=== PATIENT | male | born 1960 | race African-American/Black ===

== ENCOUNTER 2019-01-13 16:34 | Inpatient (IN) | payer OTHER ==
--- NOTE | 2019-01-13 16:57 | PDOC ---
Rapid Medical Evaluation Chief Complaint: Injury Time Seen by Provider: 01/13/19 16:52 Medical Evaluation: Allergies Allergy/AdvReac Type Severity Reaction Status Date / Time No Known Allergies Allergy Verified 01/13/19 16:49 Vital Signs Temp Pulse Resp BP Pulse Ox 97.9 F 106 H 18 119/64 94 L 01/13/19 16:49 01/13/19 16:49 01/13/19 16:49 01/13/19 16:49 01/13/19 16:49 01/13/19 16:52 I have performed a brief in-person evaluation of this patient. The patient presents with a chief complaint of:LLE pain and swelling since yesterday, caused him to fall today. Able to ambulate w/ cane. No CP/SOB or palpitations. H/o TN, DM, PAD surgery LLE intervention, s/p multiple toe amps on R foot Pertinent physical exam findings:Tachy w/ O2 sat of 94% on RA (prior smoker) + edema of LLE w/ palpable DP pulse on the L I have ordered the following:labs/doppler/ekg/CXR The patient will proceed to the ED for further evaluation. Discharge Disposition - Diagnosis Left leg pain - Referrals - Patient Instructions - Post Discharge Activity
--- NOTE | 2019-01-13 17:32 | PDOC ---
History of Present Illness - General Chief Complaint: Edema Stated Complaint: FALL, LT LEG INJURY Time Seen by Provider: 01/13/19 16:52 History Source: Patient Exam Limitations: No Limitations - History of Present Illness Initial Comments: 01/13/19 17:32 CHIEF COMPLAINT: Leg pain HISTORY OF PRESENT ILLNESS: This is a 59-year-old male with IDDM, HTN, HLD, PAD , and CAD s/p NC 2014 who presents complaining of one day of left lower extremity pain and swelling. He denies any trauma to the area. He has not noticed any redness or warmth. Patient denies any recent travel, trauma, surgery , and testosterone use, or family/personal history of hypercoagulability. He is a former smoker (quit October 2018). He denies any chest pain, shortness of breath, or cough/hemoptysis. Vital signs on arrival are notable for pulse 106 and SpO2 94%. Surgeries: Amputations of right third, fourth, fifth toes, bilat LE arterial angioplasty REVIEW OF SYSTEMS: GENERAL/CONSTITUTIONAL: No fever or chills. No weakness. No weight change. HEAD, EYES, EARS, NOSE AND THROAT: No change in vision. No ear pain or discharge. No sore throat. CARDIOVASCULAR: No chest pain or palpitations. RESPIRATORY: No cough, wheezing, or shortness of breath. GASTROINTESTINAL: No nausea, vomiting, diarrhea or constipation. GENITOURINARY: No dysuria, frequency, or change in urination. MUSCULOSKELETAL: See HPI. SKIN: No rash or easy bruising. NEUROLOGIC: No headache, vertigo, loss of consciousness, or loss of sensation. PSYCHIATRIC: No depression or anxiety. ENDOCRINE: No increased thirst. No abnormal weight change. HEMATOLOGIC/LYMPHATIC: No anemia, easy bleeding, or history of blood clots. On Plavix. ALLERGIC/IMMUNOLOGIC: No hives or skin allergy. No latex allergy. PHYSICAL EXAM: GENERAL: The patient is awake, alert, and fully oriented, in no acute distress. HEAD: Normal with no signs of trauma. ENT: Pupils equal, round and reactive to light, extraocular movements intact, sclera anicteric, conjunctiva clear. Neck supple. LUNGS: Clear to auscultation bilaterally. Normal excursion. No respiratory distress or use of accessory muscles. CV: RRR, S1/S2, no MRG. Cap refill < 2 sec. ABDOMEN: Soft, non-distended, non-tender. EXTREMITIES: Normal range of motion. 2+ non-pitting LLE edema and calf tenderness. NEUROLOGICAL: Normal speech, normal gait. CN II-XII grossly intact. PSYCH: Flat affect. SKIN: Warm, dry, normal turgor, no rashes or lesions noted. 01/13/19 17:34 Past History - Past Medical History Allergies/Adverse Reactions: Allergies Allergy/AdvReac Type Severity Reaction Status Date / Time No Known Allergies Allergy Verified 01/13/19 16:49 COPD: No Diabetes: Yes Other medical history: PAD - Immunization History Immunization Up to Date: Yes - Suicide/Smoking/Psychosocial Hx Smoking History: Never smoked *Physical Exam - Vital Signs Last Vital Signs Temp Pulse Resp BP Pulse Ox 97.9 F 106 H 18 119/64 94 L 01/13/19 16:49 01/13/19 16:49 01/13/19 16:49 01/13/19 16:49 01/13/19 16:49 Moderate Sedation - Procedure Monitoring Vital Signs: Procedure Monitoring Vital Signs Temperature 97.9 F 01/13/19 16:49 Pulse Rate 106 H 01/13/19 16:49 Respiratory Rate 18 01/13/19 16:49 Blood Pressure 119/64 01/13/19 16:49 O2 Sat by Pulse Oximetry (%) 94 L 01/13/19 16:49 Heart Score/ECG Review - ECG Intrepretation Comment:: 01/13/19 18:43 NSR 99bpm Medical Decision Making - Medical Decision Making 01/13/19 17:41 A/P: 59-year-old male with calf swelling/pain 1. EKG (tachycardia) 2. Labs including CBC, CMP, PT/INR 3. Ultrasound left lower extremity r/o DVT 4. Chest x-ray (mild hypoxia) 5. Re-assess *DC/Admit/Observation/Transfer Diagnosis at time of Disposition: Left leg pain - Referrals - Patient Instructions - Post Discharge Activity
[2019-01-13 19:04] LABS: BASO % 0.5 % (0-2.0); EOS % 0.2 % (0-4.5); HEMATOCRIT 32.5 % (35.4-49); LYMPH % 3.9 % (8-40); MCH 29.1 pg (25.7-33.7); MCHC 33.9 g/dl (32.0-35.9); MEAN CELL VOLUME 85.8 fl (80-96); MEAN PLT VOLUME 8.8 fl (7.5-11.1); MONO % 6.8 % (3.8-10.2); NEUT % 88.6 % (42.8-82.8); PLATELET COUNT 232 K/MM3 (134-434); RBC 3.79 M/mm3 (4.00-5.60); RDW 14.6 % (11.9-15.9); WHITE BLOOD COUNT 11.7 K/mm3 (4.0-10.0)
[2019-01-13 19:32] LABS: ALBUMIN 2.8 g/dl (3.4-5.0); ALK PHOS 131 U/L (45-117); ANION GAP 9 MMOL/L (8-16); BILIRUBIN,TOTAL 1.1 mg/dL (0.2-1); BLOOD UREA NITROGEN 43 mg/dL (7-18); CALCIUM 9.1 mg/dL (8.5-10.1); CHLORIDE 106 mmol/L (98-107); CO2 24 mmol/L (21-32); CREATININE 2.9 mg/dL (0.55-1.3); GLUCOSE,RANDOM 52 mg/dL (74-106); POTASSIUM 5.2 mmol/L (3.5-5.1); SGOT/AST 17 U/L (15-37); SGPT/ALT 14 U/L (13-61); SODIUM 139 mmol/L (136-145); TOT PROT 6.8 g/dl (6.4-8.2)
--- NOTE | 2019-01-13 19:45 | PDOC ---
*Physical Exam - Vital Signs Last Vital Signs Temp Pulse Resp BP Pulse Ox 97.9 F 106 H 18 119/64 94 L 01/13/19 16:49 01/13/19 16:49 01/13/19 16:49 01/13/19 16:49 01/13/19 16:49 - Physical Exam Comments: 01/13/19 20:36 I assumed care of this 59-year-old male with multiple comorbidities presenting with a 1 day history of left lower extremity swelling and pain without trauma or injury. Doppler ultrasound of lower extremity done shows negative DVT. Checks x-ray shows no acute infiltrate or pathology. Patient with mild tachycardia on presentation of 106 and low O2 sat of 94% on room air. will consider chest CT with PE protocol given patient history of NC 4 years ago and now with lower extremity swelling. General Appearance: Yes: Nourished, Appropriately Dressed. No: Apparent Distress HEENT: positive: Normal ENT Inspection Neck: positive: Supple Respiratory/Chest: positive: Normal Breath Sounds. negative: Respiratory Distress, Accessory Muscle Use Cardiovascular: positive: Regular Rhythm, Regular Rate Extremity: positive: Normal Range of Motion Integumentary: positive: Normal Color. negative: Erythema Neurologic: positive: Fully Oriented, Alert, Normal Mood/Affect ED Treatment Course - LABORATORY CBC & Chemistry Diagram: 01/13/19 18:47 01/13/19 18:47 - ADDITIONAL ORDERS Additional order review: Laboratory Results 01/13/19 01/13/19 18:47 17:30 Sodium 139 Potassium 5.2 H Chloride 106 Carbon Dioxide 24 Anion Gap 9 BUN 43 H Creatinine 2.9 H Creat Clearance w eGFR 22.23 Random Glucose 52 L Calcium 9.1 Total Bilirubin 1.1 H AST 17 ALT 14 Alkaline Phosphatase 131 H Creatine Kinase 163 Troponin I 0.08 H B-Natriuretic Peptide 4724.0 H Total Protein 6.8 Albumin 2.8 L 01/13/19 18:47 RBC 3.79 L MCV 85.8 MCHC 33.9 RDW 14.6 MPV 8.8 Neutrophils % 88.6 H Lymphocytes % 3.9 L Monocytes % 6.8 Eosinophils % 0.2 Basophils % 0.5 Medical Decision Making - Medical Decision Making 01/13/19 20:38 I assumed care of this 59-year-old male with multiple comorbidities presenting with a 1 day history of left lower extremity swelling and pain without trauma or injury. Doppler ultrasound of lower extremity done shows negative DVT. Checks x-ray shows no acute infiltrate or pathology. Patient with mild tachycardia on presentation of 106 and low O2 sat of 94% on room air. will consider chest CT with PE protocol given patient history of NC 4 years ago and now with lower extremity swelling.Patient is hemodynamically able. Repeat vitals to be done a few minutes. Will assessed after vitals 01/13/19 21:37 Repeat vitals shows improved oxygen level to 99% room air. Patient is still tachycardic at 102. Chemistry labs shows elevated troponins and BMP labs. Patient with no history of CHF to explain the elevated BMP. Patient with history of chronic kidney disease and cannot do chest CTA given elevated creatinine level. Spoke to patient's primary care doctor Brett reported no history of CHF and patient only had hypertension and chronic kidney disease. Patient will be admitted for possible CHF given lab levels. 01/13/19 22:23 Patient given lasix 40mg and ASA 162 mg PO. Called made to admitting team and spoke to medicine team who agrees to admit under Dr. Karishma New *DC/Admit/Observation/Transfer Diagnosis at time of Disposition: Left leg pain, IDDM (insulin dependent diabetes mellitus) HTN (hypertension) Qualifiers: Hypertension type: essential hypertension Qualified Code(s): I10 - Essential ( primary) hypertension CHF (congestive heart failure) Qualifiers: Heart failure type: unspecified Heart failure chronicity: acute Qualified Code( s): I50.9 - Heart failure, unspecified - Discharge Dispostion Condition at time of disposition: Stable Decision to Admit order: Yes Decision to Admit order Date/Time: 01/13/19 21:42 Admitting patient for management of CHF and low O2 sat - Referrals Referrals: Tae West [Primary Care Provider] - - Patient Instructions - Post Discharge Activity
[2019-01-13 20:19] LABS: ANISOCYTOSIS 1+; PLATELET ESTIMATE ADEQUATE
[2019-01-13] MEDS ORDERED: ASPIRIN 81 MG CHEWABLE TABLETS PO ONE (21:34)
[2019-01-13] MEDS ORDERED: FUROSEMIDE 40 MG/5 ML UNIT-DOSE CUP PO ONE (21:34)
[2019-01-13] MEDS ORDERED: FUROSEMIDE 40 MG TABLET (FP) ONE (21:46)
[2019-01-13] MEDS ORDERED: ASPIRIN 81 MG CHEWABLE TABLETS ONE (21:46)
--- NOTE | 2019-01-13 23:42 | PDOC ---
*Physical Exam - Vital Signs Last Vital Signs Temp Pulse Resp BP Pulse Ox 99.5 F 102 H 16 105/59 L 99 01/13/19 21:30 01/13/19 21:30 01/13/19 21:30 01/13/19 21:30 01/13/19 21:30 Heart Score/ECG Review #1 General ECG Interpretation: Sinus Rhythm, Normal Rate (99), Normal Intervals, No acute ischemic changes ED Treatment Course - LABORATORY CBC & Chemistry Diagram: 01/13/19 18:47 01/13/19 18:47 - ADDITIONAL ORDERS Additional order review: Laboratory Results 01/13/19 01/13/19 18:47 17:30 Sodium 139 Potassium 5.2 H Chloride 106 Carbon Dioxide 24 Anion Gap 9 BUN 43 H Creatinine 2.9 H Creat Clearance w eGFR 22.23 Random Glucose 52 L Calcium 9.1 Total Bilirubin 1.1 H AST 17 ALT 14 Alkaline Phosphatase 131 H Creatine Kinase 163 Creatine Kinase Index 1.5 CK-MB (CK-2) 2.6 Troponin I 0.08 H B-Natriuretic Peptide 4724.0 H Total Protein 6.8 Albumin 2.8 L 01/13/19 18:47 RBC 3.79 L MCV 85.8 MCHC 33.9 RDW 14.6 MPV 8.8 Neutrophils % 88.6 H Lymphocytes % 3.9 L Monocytes % 6.8 Eosinophils % 0.2 Basophils % 0.5 - Medications Given in the ED: ED Medications Discontinued Medications Generic Name Dose Route Start Last Admin Trade Name Freq PRN Reason Stop Dose Admin Aspirin 162 mg 01/13/19 21:34 01/13/19 21:55 Asa - PO 01/13/19 21:35 162 mg ONCE ONE Administration Furosemide 40 mg 01/13/19 21:34 01/13/19 21:55 Lasix Oral Solution - PO 01/13/19 21:35 40 mg ONCE ONE Administration Medical Decision Making - Medical Decision Making 01/13/19 23:37 59 yo male h/o DM, HTN, HLD, and CAD s/p DC 2014, here with leg swelling. pt poor historian, states has been swollen for some time. does feel occasionally sob with exertion . no f/c no cough no known h/o pe or dvt. pt states left leg swollen. on exam pt awake alert, lungs clear crackles at bases, heart rrr no mrg abd soft bilat ext edema. left greater than right. nuero alert oriented. pt wiht leg swelling. differential chf dvt infection, plan labs ekg trop doppler doppler negative. creatinine 2.9 , BnP elevated, and trop positive. d/w pt dr holguin, no known h/ o chf, but does have ckd. will admit pt for chf, elevated ckd, tray. seen and examined in conjunction with MUSTAPHA ritter, and MUSTAPHA Gipson. agree with assessment and plan. *DC/Admit/Observation/Transfer Diagnosis at time of Disposition: Left leg pain, IDDM (insulin dependent diabetes mellitus) HTN (hypertension) Qualifiers: Hypertension type: essential hypertension Qualified Code(s): I10 - Essential ( primary) hypertension CHF (congestive heart failure) Qualifiers: Heart failure type: unspecified Heart failure chronicity: acute Qualified Code( s): I50.9 - Heart failure, unspecified - Discharge Dispostion Condition at time of disposition: Stable - Referrals - Patient Instructions - Post Discharge Activity
--- NOTE | 2019-01-13 23:50 | HP ---
<Shalonda Brown - Last Filed: 01/14/19 18:32> CHIEF COMPLAINT:left lower leg pain PCP:Dr. West HISTORY OF PRESENT ILLNESS: Patient is a 59 year old male with past medical history of IDDM, HTN, HLD, PAD, CAD s/p PCI, CKD, presented to the ED with 1 day history of left lower extremity pain. Patient reported pain started yesterday morning, severe 10/10 sharp pain located at the back of his thigh and knee radiating down the posterior lower leg, relieved by rest and Naproxen, aggravated by walking. Pain persisted throughout the rest of the day, and this afternoon, because of the pain, patient felt his legs giving out and fell down. Denies any head trauma or loss of consciousness. Patient then went to the ED. He denies any fever, chills , headache, nausea, vomiting, chest pain, SOB, abdominal pain, diarrhea, urinary symptoms. ER course was notable for: (1)BUN/Cr 43/2.9, K 5.2, Glu 52 (2)Trop 0.08, BNP 4724 (3) Recent Travel:denies PAST MEDICAL HISTORY: IDDM HTN HLD PAD CAD CKD PAST SURGICAL HISTORY: cardiac stents ([facility]) Left 2nd, 3rd, 4th, 5th toe amputation Social History: Smoking:previous smoker, 1ppdx>40years Alcohol:occasional EtOH Drugs: denies Family History: noncontributory Allergies No Known Allergies Allergy (Verified 01/13/19 16:49) HOME MEDICATIONS: Home Medications Medication Instructions Recorded Aspirin [ASA -] 81 mg PO DAILY 01/13/19 Atorvastatin Ca [Lipitor] 20 mg PO HS 01/13/19 Clopidogrel Bisulfate [Plavix] 75 mg PO AM 01/13/19 Insulin (Novolog 70/30) [Novolog 30 units SQ HS 01/13/19 Mix 70/30 Vial] Insulin (Novolog 70/30) [Novolog 54 units SQ AM 01/13/19 Mix 70/30 Vial] Metoprolol Succinate 50 mg PO AM 01/13/19 REVIEW OF SYSTEMS CONSTITUTIONAL: Absent: fever, chills, diaphoresis, generalized weakness, malaise, loss of appetite, weight change HEENT: Absent: rhinorrhea, nasal congestion, throat pain, throat swelling, difficulty swallowing, mouth swelling, ear pain, eye pain, visual changes CARDIOVASCULAR: Absent: chest pain, syncope, palpitations, irregular heart rate, lightheadedness , peripheral edema RESPIRATORY: Absent: cough, shortness of breath, dyspnea with exertion, orthopnea, wheezing, stridor, hemoptysis GASTROINTESTINAL: Absent: abdominal pain, abdominal distension, nausea, vomiting, diarrhea, constipation, melena, hematochezia GENITOURINARY: Absent: dysuria, frequency, urgency, hesitancy, hematuria, flank pain, genital pain MUSCULOSKELETAL: left lower leg pain Absent: myalgia, arthralgia, joint swelling, back pain, neck pain SKIN: Absent: rash, itching, pallor HEMATOLOGIC/IMMUNOLOGIC: Absent: easy bleeding, easy bruising, lymphadenopathy, frequent infections ENDOCRINE: Absent: unexplained weight gain, unexplained weight loss, heat intolerance, cold intolerance NEUROLOGIC: Absent: headache, focal weakness or paresthesias, dizziness, unsteady gait, seizure, mental status changes, bladder or bowel incontinence PSYCHIATRIC: Absent: anxiety, depression, suicidal or homicidal ideation, hallucinations. PHYSICAL EXAMINATION Vital Signs - 24 hr 01/13/19 01/13/19 16:49 21:30 Temperature 97.9 F 99.5 F Pulse Rate 106 H Pulse Rate [ 102 H Right Radial] Respiratory 18 16 Rate Blood Pressure 119/64 Blood Pressure 105/59 L [Right Arm] O2 Sat by Pulse 94 L 99 Oximetry (%) GENERAL: Awake, alert, and fully oriented, in no acute distress. HEAD: Normal with no signs of trauma. EYES: PERRLA, EOMI, sclera anicteric, conjunctiva clear. EARS, NOSE, THROAT: Ears normal, oropharynx clear without exudates. Moist mucous membranes. NECK: Normal range of motion, supple without lymphadenopathy, JVD, or masses. LUNGS: Breath sounds equal, clear to auscultation bilaterally. HEART: Regular rate and rhythm, normal S1 and S2 without murmur, rub or gallop. ABDOMEN: Soft, nontender, not distended, normoactive bowel sounds. MUSCULOSKELETAL: Normal range of motion at all joints. UPPER EXTREMITIES: 2+ pulses, warm, well-perfused. No peripheral edema. LOWER EXTREMITIES: 2+ pulses, warm, well-perfused. +b/l LE nonpitting edema NEUROLOGICAL: Cranial nerves II-XII intact. Normal speech. Motor strength 5/5, sensation intact. Normal gait. PSYCHIATRIC: Cooperative. Good eye contact. Appropriate mood and affect. SKIN: Warm, dry, normal turgor, no rashes or lesions noted. Laboratory Results - last 24 hr 01/13/19 01/13/19 01/13/19 17:30 18:47 18:47 WBC 11.7 H RBC 3.79 L Hgb 11.0 L Hct 32.5 L MCV 85.8 MCH 29.1 MCHC 33.9 RDW 14.6 Plt Count 232 MPV 8.8 Absolute Neuts (auto) 10.4 H Total Counted 100 Neutrophils % 88.6 H Neutrophils % (Manual) 72.0 Band Neutrophils % 15.0 H Lymphocytes % 3.9 L Lymphocytes % (Manual) 6.0 L Monocytes % 6.8 Monocytes % (Manual) 7 Eosinophils % 0.2 Basophils % 0.5 Nucleated RBC % 0 Metamyelocytes 1 Hypochromia 1+ Platelet Estimate Adequate Platelet Comment No clotting detected Anisocytosis 1+ Sodium 139 Potassium 5.2 H Chloride 106 Carbon Dioxide 24 Anion Gap 9 BUN 43 H Creatinine 2.9 H Creat Clearance w eGFR 22.23 Random Glucose 52 L Calcium 9.1 Total Bilirubin 1.1 H AST 17 ALT 14 Alkaline Phosphatase 131 H Creatine Kinase 163 Creatine Kinase Index 1.5 CK-MB (CK-2) 2.6 Troponin I 0.08 H B-Natriuretic Peptide 4724.0 H Total Protein 6.8 Albumin 2.8 L ASSESSMENT/PLAN: Patient is a 59 year old male with past medical history of IDDM, HTN, HLD, PAD, CAD s/p PCI, CKD, presented to the ED with 1 day history of left lower extremity pain. 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 #CKD -As per ED, PCP confirmed patient has CKD, unknown baseline Cr -Will monitor bmp #Hypoglycemia, IDDM -Glu 50, orange juice and crackers given -BGM ACHS -Insulin sliding scale implemented #FEN -Not on any standing fluids -HyperK, will given Kayexalate -Routine bmp monitoring -Diabetic/Sodium controlled diet #Prophylaxis -Heparin 5000units sq tid #Disposition -full code -tele obs Visit type - Emergency Visit Emergency Visit: Yes ED Registration Date: 01/13/19 Care time: The patient presented to the Emergency Department on the above date and was hospitalized for further evaluation of their emergent condition. - New Patient This patient is new to me today: Yes Date on this admission: 01/14/19 - Critical Care Critical Care patient: No <Shaq Schwarz - Last Filed: 02/01/19 21:01> Seen and examined; agree with the above aside from what is supplemented by myself in my own documentation. Reviewed all banks parts of history and exam with resident team and verified independently.
[2019-01-13] MEDS ORDERED: SODIUM POLYSTYRENE SULFONATE 15 GM/60 ML BOTTLE PO ONE (23:51)
--- NOTE | 2019-01-14 01:07 | PN ---
Teaching Attending Note Name of Resident: Shalonda Brown ATTENDING PHYSICIAN STATEMENT I saw and evaluated the patient. I reviewed the resident's note and discussed the case with the resident. I agree with the resident's findings and plan as documented. SUBJECTIVE: Seen and examined; please see resident note for further historical information. Briefly, this is a 59 y/o male presenting for LLE pain x1.5 days; made worse with activity, better with rest. Tells me that he never had these symptoms before. This is his first time at this hospital; he has multiple prior admissions at [facility] and records are pending. ER spoke to PCP who informs them that he had some HTN, CKD as outpatient. He notes some swelling of his LLE as well; negative DVT scan in ER, known PAD. Due to the pain he felt weak and fell (no organic weakness or parasthesias in his leg) so he came to the ER. Denies syncopal sx. Found incidentally to have a elevated BNP and trop but in the setting of marked CKD. He flat out denies any CP, SOB, PND, etc. No hx CHF per pt/PCP. Tells us he had an echo several months ago and regularly follows with CV 10 sys ROS done and negative aside from HPI PMH and PSH reviewed; Family hx and Social hx reviewed Medication list pending reconciliation. OBJECTIVE: VS, labs, imaging reviewed NAD, AAO, resting in bed CN2-12 wnl, no fnd. Ambulates with shuffling gait favoring R-side with cane. 5 /5 strength. Positive straight leg raise. Some discomfort to palpation along IT band. B/L arterial-appearing healed ulcers on LE. S/P R-sided TMA. RRR s1/2 no mgr Lungs CTAB, w/ sym exp NT ND +BS Normal mood, appropriate behavior CXR final report pending EKG reviewed; NSR. No prior studies to compare Old records pending; states he had recent stress test and echo. ASSESSMENT AND PLAN: Patient presents with LLE discomfort on ambulation and is incidentally found to have elevated BNP/Trop in the setting of CKD and the absence of normal cardiac sx. 1) LLE Pain -Broad ddx; some IT band tenderness alongside positive straight leg raise. No s /s cauda equina, etc. -Checking L-spine MRI to r/o compressed disc, consult PT -PRN APAP for pain control -Consider claudication (though not bilateral so less likely) 2) Elevated BNP -Not requiring O2 and no complaints of CHF; ER spoke to PCP who apparently told them he has no history of CHF. He has elevated Cr which definitely could play a role. -Will monitor his oxygen requirements; obtain old records from [facility] as the patient indicates to us that he may have had an echo done within the past several months. -Monitor lytes, eval on tele. Got lasix in the ER; will defer further diuresis to CV 3) Elevated troponin with hx DC -Asymptomatic; trend troponin and monitor tele. Could be renal retention. -Continue ASA 81mg PO QD. -Check A1c, TSH, Lipids -Obtain old records; continue asa, plavix, BB, statin. Can involve cardiology 4) CKD -Ascertain no AMADOU by checking old records for Cr trend; monitor BMP and UOP 5) DM -Continue home insulin and add SSI when inpatient; check A1c 6) HLD -Continue statin 7) PAD -Checking FABIAN/Arterial dopplers.
[2019-01-14 05:42] LABS: RDW 14.6 % (11.9-15.9); WHITE BLOOD COUNT 11.1 K/mm3 (4.0-10.0)
[2019-01-14 05:53] LABS: BASO % 0.2 % (0-2.0); EOS % 0.6 % (0-4.5); HEMATOCRIT 30.2 % (35.4-49); HEMOGLOBIN 10.1 GM/dL (11.7-16.9); LYMPH % 8.8 % (8-40); MCH 28.4 pg (25.7-33.7); MCHC 33.5 g/dl (32.0-35.9); MEAN CELL VOLUME 84.7 fl (80-96); MEAN PLT VOLUME 8.6 fl (7.5-11.1); MONO % 4.8 % (3.8-10.2); NEUT % 85.6 % (42.8-82.8); PLATELET COUNT 215 K/MM3 (134-434); RBC 3.57 M/mm3 (4.00-5.60)
[2019-01-14 06:09] LABS: ALBUMIN 2.2 g/dl (3.4-5.0); ALK PHOS 115 U/L (45-117); ANION GAP 9 MMOL/L (8-16); BLOOD UREA NITROGEN 48 mg/dL (7-18); CHLORIDE 106 mmol/L (98-107); CO2 23 mmol/L (21-32); CREATININE 3.1 mg/dL (0.55-1.3); GLUCOSE,RANDOM 101 mg/dL (74-106); PHOSPHOROUS 4.4 mg/dL (2.5-4.9); POTASSIUM 5.1 mmol/L (3.5-5.1); SGOT/AST 16 U/L (15-37); SGPT/ALT 14 U/L (13-61); SODIUM 137 mmol/L (136-145); TOT PROT 5.8 g/dl (6.4-8.2)
[2019-01-14] MEDS ORDERED: HEPARIN NA (PORCINE) 5,000 UNITS/ML 1ML VIAL ONE ×2 (06:23→15:23)
[2019-01-14] MEDS: INSULIN SLIDING SCALE (NOVOLOG) 1 VIAL SQ SCH ×4 (06:30→23:28)
[2019-01-14] MEDS: HEPARIN NA (PORCINE) 5,000 UNITS/ML 1ML VIAL SQ SCH ×3 (06:35→23:28)
[2019-01-14] MEDS ORDERED: CLOPIDOGREL BISULFATE 75 MG TABLET (FP) ONE (06:42)
[2019-01-14] MEDS: CLOPIDOGREL BISULFATE 75 MG TABLET (FP) PO SCH (06:50)
[2019-01-14 07:17] LABS: PLATELET ESTIMATE ADEQUATE
[2019-01-14] MEDS ORDERED: SODIUM POLYSTYRENE SULFONATE 15 GM/60 ML BOTTLE PO ONE (09:00)
[2019-01-14] MEDS ORDERED: ASPIRIN 81 MG CHEWABLE TABLETS PO SCH (10:00)
[2019-01-14 10:04] LABS: CHOLESTEROL 133 mg/dL (50-200); HDL CHOLESTEROL 30 mg/dL (40-60); TRIGLYCERIDES 101 mg/dL (0-150)
--- NOTE | 2019-01-14 11:58 | EKG ---
Test Reason : Blood Pressure : / mmHG Vent. Rate : 099 BPM Atrial Rate : 099 BPM P-R Int : 160 ms QRS Dur : 088 ms QT Int : 318 ms P-R-T Axes : 076 001 052 degrees QTc Int : 408 ms NORMAL SINUS RHYTHM NORMAL ECG NO PREVIOUS ECGS AVAILABLE Confirmed by SHA ARCHER MD ([id number]) on 01/14/2019 11:58:28 AM Referred By: Confirmed By:SHA ARCHER MD
[2019-01-14] MEDS ORDERED: SODIUM CHLORIDE 250 ML IV STA (14:37)
--- NOTE | 2019-01-14 14:43 | PN ---
Physical Exam: SUBJECTIVE: Patient seen and examined pt reports mild in his left calf which started yesterday when he tried to stand. Janie n was 10/10 in intensity and decreased after taking a medicine. in hospital dupplx scan is negative. MRI spine was also done which showed chronic degenrative changes and stenosis for which he can follow outpatient with neurology as he has no active pain in his back. Pt creatinine in jul 2018 was 1.43 and now it has jumped to 3.1. Clinically looks behind fluid and also got lasix in er last night. His bnp can be elevated because of ckd. PT has h/o htn/hld/ckd OBJECTIVE: Vital Signs Period Temp Pulse Resp BP Sys/Cano Pulse Ox Last 24 Hr 97.9 F-99.5 F 102-110 16-18 101-119/59-64 94-99 GENERAL: The patient is awake, alert, and fully oriented, in no acute distress. HEAD: Normal with no signs of trauma. EYES: PERRL, extraocular movements intact, sclera anicteric, conjunctiva clear. ENT: dry mucous membranes. NECK: Trachea midline, full range of motion, supple. LUNGS: Breath sounds equal, clear to auscultation bilaterally, no wheezes, no crackles, no accessory muscle use. HEART: Regular rate and rhythm, S1, S2 ABDOMEN: Soft, nontender, nondistended, normoactive bowel sounds, no guarding, no rebound, EXTREMITIES: amputation of toes of left feet. No peripharal pulses, chronic edema pitting b/l PSYCH: Normal mood, SKIN: Warm, dry, Laboratory Results - last 24 hr 01/13/19 01/13/19 01/13/19 17:30 18:47 18:47 WBC 11.7 H RBC 3.79 L Hgb 11.0 L Hct 32.5 L MCV 85.8 MCH 29.1 MCHC 33.9 RDW 14.6 Plt Count 232 MPV 8.8 Absolute Neuts (auto) 10.4 H Total Counted 100 Neutrophils % 88.6 H Neutrophils % (Manual) 72.0 Band Neutrophils % 15.0 H Lymphocytes % 3.9 L Lymphocytes % (Manual) 6.0 L Monocytes % 6.8 Monocytes % (Manual) 7 Eosinophils % 0.2 Basophils % 0.5 Nucleated RBC % 0 Metamyelocytes 1 Hypochromia 1+ Platelet Estimate Adequate Platelet Comment No clotting detected Anisocytosis 1+ Sodium 139 Potassium 5.2 H Chloride 106 Carbon Dioxide 24 Anion Gap 9 BUN 43 H Creatinine 2.9 H Creat Clearance w eGFR 22.23 POC Glucometer Random Glucose 52 L Hemoglobin A1c % Calcium 9.1 Phosphorus Magnesium Total Bilirubin 1.1 H AST 17 ALT 14 Alkaline Phosphatase 131 H Creatine Kinase 163 Creatine Kinase Index 1.5 CK-MB (CK-2) 2.6 Troponin I 0.08 H B-Natriuretic Peptide 4724.0 H Total Protein 6.8 Albumin 2.8 L Triglycerides Cholesterol Total LDL Cholesterol HDL Cholesterol TSH 01/13/19 01/14/19 01/14/19 23:48 00:10 01:37 WBC RBC Hgb Hct MCV MCH MCHC RDW Plt Count MPV Absolute Neuts (auto) Total Counted Neutrophils % Neutrophils % (Manual) Band Neutrophils % Lymphocytes % Lymphocytes % (Manual) Monocytes % Monocytes % (Manual) Eosinophils % Basophils % Nucleated RBC % Metamyelocytes Hypochromia Platelet Estimate Platelet Comment Anisocytosis Sodium Potassium Chloride Carbon Dioxide Anion Gap BUN Creatinine Creat Clearance w eGFR POC Glucometer 50 Random Glucose Hemoglobin A1c % Calcium Phosphorus Magnesium Total Bilirubin AST ALT Alkaline Phosphatase Creatine Kinase Cancelled Creatine Kinase Index CK-MB (CK-2) Troponin I Cancelled 0.06 H B-Natriuretic Peptide Total Protein Albumin Triglycerides Cholesterol Total LDL Cholesterol HDL Cholesterol TSH 01/14/19 01/14/19 01/14/19 05:30 05:30 05:30 WBC 11.1 H RBC 3.57 L Hgb 10.1 L Hct 30.2 L MCV 84.7 MCH 28.4 MCHC 33.5 RDW 14.6 Plt Count 215 MPV 8.6 Absolute Neuts (auto) 9.5 H Total Counted 100 Neutrophils % 85.6 H Neutrophils % (Manual) 72.0 Band Neutrophils % 13.0 H Lymphocytes % 8.8 D Lymphocytes % (Manual) 10.0 D Monocytes % 4.8 Monocytes % (Manual) 4 Eosinophils % 0.6 D Basophils % 0.2 Nucleated RBC % 0 Metamyelocytes 1 Hypochromia 1+ Platelet Estimate Adequate Platelet Comment No clotting detected Anisocytosis Sodium 137 Potassium 5.1 Chloride 106 Carbon Dioxide 23 Anion Gap 9 BUN 48 H Creatinine 3.1 H Creat Clearance w eGFR 20.59 POC Glucometer Random Glucose 101 Hemoglobin A1c % 8.0 H Calcium 9.0 Phosphorus 4.4 Magnesium 2.0 Total Bilirubin 1.0 AST 16 ALT 14 Alkaline Phosphatase 115 Creatine Kinase Creatine Kinase Index CK-MB (CK-2) Troponin I B-Natriuretic Peptide Total Protein 5.8 L Albumin 2.2 L Triglycerides 101 Cholesterol 133 Total LDL Cholesterol 59 HDL Cholesterol 30 L TSH 0.87 01/14/19 06:33 WBC RBC Hgb Hct MCV MCH MCHC RDW Plt Count MPV Absolute Neuts (auto) Total Counted Neutrophils % Neutrophils % (Manual) Band Neutrophils % Lymphocytes % Lymphocytes % (Manual) Monocytes % Monocytes % (Manual) Eosinophils % Basophils % Nucleated RBC % Metamyelocytes Hypochromia Platelet Estimate Platelet Comment Anisocytosis Sodium Potassium Chloride Carbon Dioxide Anion Gap BUN Creatinine Creat Clearance w eGFR POC Glucometer 110 Random Glucose Hemoglobin A1c % Calcium Phosphorus Magnesium Total Bilirubin AST ALT Alkaline Phosphatase Creatine Kinase Creatine Kinase Index CK-MB (CK-2) Troponin I B-Natriuretic Peptide Total Protein Albumin Triglycerides Cholesterol Total LDL Cholesterol HDL Cholesterol TSH Active Medications Generic Name Dose Route Start Last Admin Trade Name Freq PRN Reason Stop Dose Admin Acetaminophen 650 mg 01/14/19 04:03 Tylenol - PO Q6H PRN PAIN OR FEVER Aspirin 81 mg 01/14/19 10:00 01/14/19 10:30 Asa - PO 81 mg DAILY LISA Administration Atorvastatin Calcium 20 mg 01/14/19 22:00 Lipitor - PO HS LISA Clopidogrel Bisulfate 75 mg 01/14/19 07:00 01/14/19 06:50 Plavix - PO 75 mg AM LISA Administration Heparin Sodium (Porcine) 5,000 unit 01/14/19 06:00 01/14/19 06:35 Heparin - SQ 5,000 unit TID LISA Administration Sodium Chloride 250 mls @ 250 mls/hr 01/14/19 14:37 Normal Saline - IV 01/14/19 15:36 ASDIR STA Insulin Aspart 1 vial 01/14/19 07:00 01/14/19 06:30 Novolog Vial Sliding Scale - SQ Not Given ACHS [facility] Protocol Metoprolol Succinate 50 mg 01/14/19 07:00 01/14/19 07:15 Toprol Xl - PO Not Given AM [facility] ASSESSMENT/PLAN: Patient is a 59 year old male with past medical history of IDDM, HTN, HLD, PAD, CAD s/p PCI, CKD, presented to the ED with 1 day history of left lower extremity pain. #LLE pain; likely from muscle cramp duplex scan negative mri chronic degenrative change. denies pain in back and leg pain is also not radiating. PT evaluation: adv to walk with rolling walker pain got better with pain med #Elevated troponin -Trop 0.08, may be 2/2 CKD -EKG NSR, no ST-T wave changes -Will trend trop 0.08-->0.06 - #Elevated BNP -BNP 4724, likely 2/2 CKD -No SOB, lungs CTA, No evidence of congestion on CXR, leg swelling possibly chronic -Received Lasix 40mg in the ED -Will continue to monitor for now #CKD base line cr 1.43 in er 3.1 got lasix yesterday. we will give him challenge of 250ml and get echo. repeat cr in am #Hypoglycemia, IDDM -Glu 50, orange juice and crackers given -BGM ACHS -Insulin sliding scale implemented #FEN -Not on any standing fluids -HyperK, will given Kayexalate -Routine bmp monitoring -Diabetic/Sodium controlled diet #Prophylaxis -Heparin 5000units sq tid #Disposition -full code -med surg Visit type - Emergency Visit Emergency Visit: Yes ED Registration Date: 01/13/19 Care time: The patient presented to the Emergency Department on the above date and was hospitalized for further evaluation of their emergent condition. - New Patient This patient is new to me today: Yes Date on this admission: 01/14/19 - Critical Care Critical Care patient: No
--- NOTE | 2019-01-14 15:16 | PN ---
Teaching Attending Note Name of Resident: Jean-Paul Steve ATTENDING PHYSICIAN STATEMENT I saw and evaluated the patient. I reviewed the resident's note and discussed the case with the resident. I agree with the resident's findings and plan as documented. SUBJECTIVE: Mr Mendez complains of L calf pain that is reproducible. No cp, sob , n/v. OBJECTIVE: Last Vital Signs Temp Pulse Resp BP Pulse Ox 37.1 C 110 H 16 101/64 98 01/14/19 07:02 01/14/19 07:02 01/14/19 07:02 01/14/19 07:02 01/14/19 07:02 Gen: nad Pulm: ctab w/o w/r/r CV: rrr w/o m/r/g Abd: +bs, s/nt/nd Ext: no c/c/e, reproducible pain in L calf region CBC, BMP 01/14/19 05:30 01/14/19 05:30 ASSESSMENT AND PLAN: -patient with worsening renal function, last bmp checked in 08/11 showed creatinine at 1.43 -creatinine now 3.1, also received lasix last night -suspect patient needs fluids, not diuresis -check FENa labs and renal ultrasound -nephrology consult -hydration with IVF -hold on nephrotoxic agents -troponin and bnp noted, considering renal function this level is expected -check ECHO -MRI read noted -while MRI is significant, it does not appear to be the cause of patients pain -pain control and PT -continue home regimen -may need SNF if patient is agreeable Problem List - Problems (1) Left leg pain Code(s): M79.605 - PAIN IN LEFT LEG (2) AMADOU (acute kidney injury) Code(s): N17.9 - ACUTE KIDNEY FAILURE, UNSPECIFIED (3) CKD (chronic kidney disease) Code(s): N18.9 - CHRONIC KIDNEY DISEASE, UNSPECIFIED Qualifiers: Chronic kidney disease stage: stage 2 (mild) Qualified Code(s): N18.2 - Chronic kidney disease, stage 2 (mild) (4) HTN (hypertension) Code(s): I10 - ESSENTIAL (PRIMARY) HYPERTENSION Qualifiers: Hypertension type: essential hypertension Qualified Code(s): I10 - Essential (primary) hypertension (5) IDDM (insulin dependent diabetes mellitus) Code(s): E11.9 - TYPE 2 DIABETES MELLITUS WITHOUT COMPLICATIONS; 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
--- NOTE | 2019-01-14 16:06 | CONSULT ---
Consult Consult Specialty:: Nephrology Reason for Consultation:: AMADOU - History of Present Illness Chief Complaint: left leg pain History of Present Illness: Pt is a 59 year old male with pmhx of CKD (manager story baseline about 1.4-1.5), DM, HTN , HLD, PAD, and CAD who presented with left leg pain. He was found to be in acute renal failure and I was called to evaluate him. He follows with Dr Jenkins in [facility]. He denies dysuria or hematuria. He denies nsaid use. He denies shortness of breath. He does complain of lower ext edema. He denies chest pain. - History Source History Provided By: Patient, Medical Record - Past Medical History Cardio/Vascular: Yes: CAD, HTN, Hyperlipdemia Renal/: Yes: Renal Inusuff Endocrine: Yes: Diabetes Mellitus - Smoking History Smoking history: Never smoked Home Medications - Allergies Allergies/Adverse Reactions: Allergies Allergy/AdvReac Type Severity Reaction Status Date / Time No Known Allergies Allergy Verified 01/13/19 16:49 - Home Medications Home Medications: Ambulatory Orders Aspirin [ASA -] 81 mg PO DAILY 01/13/19 Atorvastatin Ca [Lipitor] 20 mg PO HS 01/13/19 Clopidogrel Bisulfate [Plavix] 75 mg PO AM 01/13/19 Insulin (Novolog 70/30) [Novolog Mix 70/30 Vial] 30 units SQ HS 01/13/19 Insulin (Novolog 70/30) [Novolog Mix 70/30 Vial] 54 units SQ AM 01/13/19 Metoprolol Succinate 50 mg PO AM 01/13/19 Family Disease History - Family Disease History Family History: Denies Review of Systems - Review of Systems Constitutional: reports: Malaise Eyes: reports: No Symptoms HENT: reports: No Symptoms Neck: reports: No Symptoms Cardiovascular: reports: Edema. denies: Chest Pain, Shortness of Breath Respiratory: reports: No Symptoms. denies: Cough, SOB, SOB on Exertion Gastrointestinal: reports: No Symptoms Genitourinary: reports: No Symptoms Musculoskeletal: reports: Other (left leg pain) Endocrine: reports: No Symptoms Hematology/Lymphatic: reports: No Symptoms Psychiatric: reports: No Symptoms Physical Exam Vital Signs: Vital Signs Temperature 99.8 F H 01/14/19 15:00 Pulse Rate 110 H 01/14/19 15:00 Respiratory Rate 16 01/14/19 15:00 Blood Pressure 129/68 01/14/19 15:00 O2 Sat by Pulse Oximetry (%) 97 01/14/19 15:00 Constitutional: Yes: Calm Eyes: Yes: Conjunctiva Clear HENT: Yes: Atraumatic Neck: Yes: Supple Cardiovascular: Yes: S1, S2 Respiratory: Yes: CTA Bilaterally Gastrointestinal: Yes: Soft Renal/: Yes: WNL Musculoskeletal: Yes: WNL Edema: Yes Edema: LLE: 1+, RLE: 1+ Neurological: Yes: Oriented Psychiatric: Yes: Oriented Labs: CBC, BMP 01/14/19 05:30 01/14/19 05:30 Laboratory Tests 01/13/19 01/14/19 01/14/19 18:47 05:30 05:30 WBC 11.7 H 11.1 H Sodium 137 Potassium 5.1 Chloride 106 Carbon Dioxide 23 Anion Gap 9 BUN 48 H Creatinine 3.1 H Hemoglobin A1c % 01/14/19 05:30 WBC Sodium Potassium Chloride Carbon Dioxide Anion Gap BUN Creatinine Hemoglobin A1c % 8.0 H Imaging - Results Chest X-ray: Report Reviewed Ultrasound: Report Reviewed Problem List - Problems (1) AMADOU (acute kidney injury) Code(s): N17.9 - ACUTE KIDNEY FAILURE, UNSPECIFIED (2) CHF (congestive heart failure) Code(s): I50.9 - HEART FAILURE, UNSPECIFIED Qualifiers: Heart failure type: unspecified Heart failure chronicity: acute Qualified Code(s): I50.9 - Heart failure, unspecified (3) CKD (chronic kidney disease) Code(s): N18.9 - CHRONIC KIDNEY DISEASE, UNSPECIFIED Qualifiers: Chronic kidney disease stage: stage 2 (mild) Qualified Code(s): N18.2 - Chronic kidney disease, stage 2 (mild) (4) HTN (hypertension) Code(s): I10 - ESSENTIAL (PRIMARY) HYPERTENSION Qualifiers: Hypertension type: essential hypertension Qualified Code(s): I10 - Essential (primary) hypertension (5) IDDM (insulin dependent diabetes mellitus) Code(s): E11.9 - TYPE 2 DIABETES MELLITUS WITHOUT COMPLICATIONS; 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 (6) Left leg pain Code(s): M79.605 - PAIN IN LEFT LEG Assessment/Plan Current Medications Generic Name Dose Route Start Last Admin Trade Name Freq PRN Reason Stop Dose Admin Acetaminophen 650 mg 01/14/19 04:03 Tylenol - PO Q6H PRN PAIN OR FEVER Aspirin 81 mg 01/14/19 10:00 01/14/19 10:30 Asa - PO 81 mg DAILY LISA Administration Atorvastatin Calcium 20 mg 01/14/19 22:00 Lipitor - PO HS LISA Clopidogrel Bisulfate 75 mg 01/14/19 07:00 01/14/19 06:50 Plavix - PO 75 mg AM LISA Administration Heparin Sodium (Porcine) 5,000 unit 01/14/19 06:00 01/14/19 15:37 Heparin - SQ 5,000 unit TID [facility] Administration Insulin Aspart 1 vial 01/14/19 07:00 01/14/19 15:36 Novolog Vial Sliding Scale - SQ Not Given ACHS [facility] Protocol Metoprolol Succinate 50 mg 01/14/19 07:00 01/14/19 07:15 Toprol Xl - PO Not Given AM [facility] Impression 1. AMADOU 2. lower ext edema 3. leg pain 4. HTN 5. DM 6. CKD Plan - check renal ultrasound - send ua - check urine lytes and manager story to calc fena - pt did get a dose of lasix - check echo - repeat labs in am - renal diet for now - check phos level - check prt to manager story ratio
[2019-01-14] MEDS ORDERED: PNEUMOC 13-VAL CONJ-DIP CRM/PF 0.5 ML DISP.SYRIN IM ONE (17:31)
[2019-01-14] MEDS ORDERED: INSULIN (NOVOLOG) ASPART 100 UNITS/ML 10ML VIAL ONE (17:36)
[2019-01-14] MEDS ORDERED: PNEUMOCOCCAL 23 VACCINE 0.5 ML VIAL IM ONE (17:45)
[2019-01-14] MEDS ORDERED: ATORVASTATIN CA 20 MG TABLET (FP) PO SCH (22:00)
[2019-01-15] MEDS: ACETAMINOPHEN 325 MG TABLET (FP) PO PRN ×3 (00:51→21:08)
[2019-01-15] MEDS: HEPARIN NA (PORCINE) 5,000 UNITS/ML 1ML VIAL SQ SCH ×3 (06:13→21:07)
[2019-01-15] MEDS: INSULIN SLIDING SCALE (NOVOLOG) 1 VIAL SQ SCH ×4 (06:15→21:07)
[2019-01-15] MEDS: CLOPIDOGREL BISULFATE 75 MG TABLET (FP) PO SCH (06:22)
[2019-01-15 08:36] LABS: ALBUMIN 1.6 g/dl (3.4-5.0); ALK PHOS 99 U/L (45-117); ANION GAP 13 MMOL/L (8-16); BILIRUBIN,TOTAL 0.9 mg/dL (0.2-1); BLOOD UREA NITROGEN 61 mg/dL (7-18); CHLORIDE 104 mmol/L (98-107); CO2 19 mmol/L (21-32); CREATININE 3.2 mg/dL (0.55-1.3); GLUCOSE,RANDOM 190 mg/dL (74-106); POTASSIUM 4.3 mmol/L (3.5-5.1); SGOT/AST 19 U/L (15-37); SGPT/ALT 11 U/L (13-61); SODIUM 135 mmol/L (136-145); TOT PROT 4.9 g/dl (6.4-8.2)
--- NOTE | 2019-01-15 10:11 | ECHO ---
Name: ASAEL GUPTA Exam:Adult Echocardiogram Study Date: 01/15/2019 07:30 AM Age: 59 yrs Reason For Study: ELEVATED VBNP Height: 73 in Weight: 270 lb BSA: 2.4 m2 MMode/2D Measurements & Calculations IVSd: 1.2 cm Ao root diam: 3.4 cm LVIDd: 4.1 cm LA dimension: 2.8 cm LVIDs: 3.2 cm LVPWd: 0.87 cm EDV(Teich): 75.2 ml LAV (MOD-bp): 50.8 ml ESV(Teich): 40.8 ml Doppler Measurements & Calculations MV E max moreno: 69.2 cm/sec MV A max moreno: 105.9 cm/sec MV dec slope: 1943 cm/sec2 MV E/A: 0.65 MR max moreno: 375.9 cm/sec TR max moreno: 270.1 cm/sec MR max P.5 mmHg TR max P.0 mmHg Med Peak E' Moreno: 5.9 cm/sec PI Vmax: 171.0 cm/sec Med E/e': 11.8 Lat Peak E' Moreno: 9.0 cm/sec Lat E/e': 7.7 Left Ventricle Left ventricular systolic function is normal. Ejection Fraction = 55-60%. The transmitral spectral Do ppler flow pattern is suggestive of impaired LV relaxation. Right Ventricle The right ventricle is normal in size and function. Atria The left atrium is mildly dilated. Mitral Valve The mitral valve is grossly normal. There is no mitral valve stenosis. There is mild mitral regurgita tion. Tricuspid Valve The tricuspid valve is normal in structure and function. There is mild tricuspid regurgitation. Right ventricular systolic pressure is elevated at 40-50mmHg. Aortic Valve There is a focal echodensity on the aortic valve seen in multiple views which may represent an area o f focal/nodular calcification vs fibroelastoma; cannot completely exclude vegetation. No hemodynamicall y significant valvular aortic stenosis. No aortic regurgitation is present. Pulmonic Valve The pulmonic valve is not well seen, but is grossly normal. There is no pulmonic valvular stenosis. M ild pulmonic valvular regurgitation. Great Vessels The aortic root is normal size. Pericardium/Pleura There is no pericardial effusion. Interpretation Summary Clinical correlation is recommended. Ejection Fraction = 55-60%. The transmitral spectral Doppler flow pattern is suggestive of impaired LV relaxation. The right ventricle is normal in size and function. The left atrium is mildly dilated. There is mild mitral regurgitation. There is mild tricuspid regurgitation. Right ventricular systolic pressure is elevated at 40-50mmHg. There is a focal echodensity on the aortic valve seen in multiple views which may represent an area o f focal/nodular calcification vs fibroelastoma; cannot completely exclude vegetation. There is no pericardial effusion. MD Rm *[place] 01/15/2019 10:10 AM
[2019-01-15] MEDS: ASPIRIN 81 MG CHEWABLE TABLETS PO SCH (10:32)
--- NOTE | 2019-01-15 14:04 | PN ---
Progress Note, Physician History of Present Illness: Pt seen and examined at bedside. He is awake and alert. He denies shortness of breath. - Current Medication List Current Medications: Active Medications Acetaminophen (Tylenol -) 650 mg PO Q6H PRN PRN Reason: PAIN OR FEVER Aspirin (Asa -) 81 mg PO DAILY [facility] Last Admin: 01/15/19 10:32 Dose: 81 mg Atorvastatin Calcium (Lipitor -) 20 mg PO HS LISA Clopidogrel Bisulfate (Plavix -) 75 mg PO AM [facility] Heparin Sodium (Porcine) (Heparin -) 5,000 unit SQ TID [facility] Insulin Aspart (Novolog Vial Sliding Scale -) 1 vial SQ ACHS [facility]; Protocol Last Admin: 01/15/19 11:45 Dose: 4 units Metoprolol Succinate (Toprol Xl -) 50 mg PO AM [facility] - Objective Vital Signs: Vital Signs Temperature 98.5 F 01/15/19 09:00 Pulse Rate 107 H 01/15/19 09:00 Respiratory Rate 18 01/15/19 09:00 Blood Pressure 119/62 01/15/19 09:00 O2 Sat by Pulse Oximetry (%) 96 01/15/19 07:00 Constitutional: Yes: Calm Eyes: Yes: Conjunctiva Clear HENT: Yes: Atraumatic Neck: Yes: Supple Cardiovascular: Yes: S1, S2 Respiratory: Yes: CTA Bilaterally Gastrointestinal: Yes: Soft Genitourinary: Yes: WNL Edema: Yes Edema: LLE: 2+, RLE: Trace Neurological: Yes: Oriented Psychiatric: Yes: Oriented Labs: CBC, BMP 01/14/19 05:30 01/15/19 06:00 Problem List - Problems (1) AMADOU (acute kidney injury) Code(s): N17.9 - ACUTE KIDNEY FAILURE, UNSPECIFIED (2) CHF (congestive heart failure) Code(s): I50.9 - HEART FAILURE, UNSPECIFIED Qualifiers: Heart failure type: unspecified Heart failure chronicity: acute Qualified Code(s): I50.9 - Heart failure, unspecified (3) CKD (chronic kidney disease) Code(s): N18.9 - CHRONIC KIDNEY DISEASE, UNSPECIFIED Qualifiers: Chronic kidney disease stage: stage 2 (mild) Qualified Code(s): N18.2 - Chronic kidney disease, stage 2 (mild) (4) HTN (hypertension) Code(s): I10 - ESSENTIAL (PRIMARY) HYPERTENSION Qualifiers: Hypertension type: essential hypertension Qualified Code(s): I10 - Essential (primary) hypertension (5) IDDM (insulin dependent diabetes mellitus) Code(s): E11.9 - TYPE 2 DIABETES MELLITUS WITHOUT COMPLICATIONS; 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 (6) Left leg pain Code(s): M79.605 - PAIN IN LEFT LEG Assessment/Plan Current Medications Generic Name Dose Route Start Last Admin Trade Name Freq PRN Reason Stop Dose Admin Acetaminophen 650 mg 01/15/19 07:10 Tylenol - PO Q6H PRN PAIN OR FEVER Aspirin 81 mg 01/15/19 10:00 01/15/19 10:32 Asa - PO 81 mg DAILY LISA Administration Atorvastatin Calcium 20 mg 01/15/19 22:00 Lipitor - PO HS LISA Clopidogrel Bisulfate 75 mg 01/16/19 07:00 Plavix - PO AM [facility] Heparin Sodium (Porcine) 5,000 unit 01/15/19 14:00 Heparin - SQ TID LISA Insulin Aspart 1 vial 01/15/19 11:00 01/15/19 11:45 Novolog Vial Sliding Scale - SQ 4 units ACHS [facility] Administration Protocol Metoprolol Succinate 50 mg 01/16/19 07:00 Toprol Xl - PO AM [facility] Impression 1. AMADOU 2. lower ext edema 3. leg pain 4. HTN 5. DM 6. 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
--- NOTE | 2019-01-15 14:40 | PN ---
Physical Exam: SUBJECTIVE: Patient seen and examined still complains of pain in left leg with increase in swelling. Initial duplex scan done was negative. We will get repeat duplex scan and arterial doppler as pt has h/o PVD Pt also reports that he use to take naproxen twice a day from a long time. OBJECTIVE: Vital Signs Period Temp Pulse Resp BP Sys/Cano Pulse Ox Last 24 Hr 98 F-99.8 F 78-111 16-20 111-139/62-78 96-97 GENERAL: The patient is awake, alert, and fully oriented, in no acute distress. HEAD: Normal with no signs of trauma. EYES: PERRL, extraocular movements intact, sclera anicteric, conjunctiva clear. ENT: dry mucous membranes. NECK: Trachea midline, full range of motion, supple. LUNGS: Breath sounds equal, clear to auscultation bilaterally, no wheezes, no crackles, no accessory muscle use. HEART: Regular rate and rhythm, S1, S2 ABDOMEN: Soft, nontender, nondistended, normoactive bowel sounds, no guarding, no rebound, EXTREMITIES: amputation of toes of left feet. No peripharal pulses, Increase in edema of left leg. PSYCH: Normal mood, SKIN: Warm, dry, Laboratory Results - last 24 hr 01/14/19 01/14/19 01/14/19 15:31 17:40 23:22 Sodium Potassium Chloride Carbon Dioxide Anion Gap BUN Creatinine Creat Clearance w eGFR POC Glucometer 287 293 246 Random Glucose Calcium Total Bilirubin AST ALT Alkaline Phosphatase Total Protein Albumin 01/15/19 01/15/19 01/15/19 06:00 06:14 11:44 Sodium 135 L Potassium 4.3 Chloride 104 Carbon Dioxide 19 L Anion Gap 13 BUN 61 H Creatinine 3.2 H Creat Clearance w eGFR 19.85 POC Glucometer 195 240 Random Glucose 190 H Calcium 8.0 L Total Bilirubin 0.9 AST 19 ALT 11 L Alkaline Phosphatase 99 Total Protein 4.9 L Albumin 1.6 L Active Medications Generic Name Dose Route Start Last Admin Trade Name Freq PRN Reason Stop Dose Admin Acetaminophen 650 mg 01/15/19 07:10 Tylenol - PO Q6H PRN PAIN OR FEVER Aspirin 81 mg 01/15/19 10:00 01/15/19 10:32 Asa - PO 81 mg DAILY [facility] Administration Atorvastatin Calcium 20 mg 01/15/19 22:00 Lipitor - PO HS [facility] Clopidogrel Bisulfate 75 mg 01/16/19 07:00 Plavix - PO AM [facility] Heparin Sodium (Porcine) 5,000 unit 01/15/19 14:00 Heparin - SQ TID [facility] Insulin Aspart 1 vial 01/15/19 11:00 01/15/19 11:45 Novolog Vial Sliding Scale - SQ 4 units ACHS [facility] Administration Protocol Metoprolol Succinate 50 mg 01/16/19 07:00 Toprol Xl - PO AM [facility] Tamsulosin HCl 0.4 mg 01/16/19 08:30 Flomax - PO DAILY@0830 [facility] ASSESSMENT/PLAN:Patient is a 59 year old male with past medical history of IDDM , HTN, HLD, PAD, CAD s/p PCI, CKD, presented to the ED with 1 day history of left lower extremity pain. #LLE pain; likely from muscle cramp duplex scan negative mri chronic degenrative change. denies pain in back and leg pain is also not radiating. PT evaluation: adv to walk with rolling walker because of increase in swelling and pain we will get repeat duplex scan, arterial scan and xray pain control with tylenol #Elevated troponin -Trop 0.08, may be 2/2 CKD -EKG NSR, no ST-T wave changes -Will trend trop 0.08-->0.06 - #Elevated BNP -BNP 4724, likely 2/2 CKD -No SOB, lungs CTA, No evidence of congestion on CXR, leg swelling possibly chronic -Received Lasix 40mg in the ED -Will continue to monitor for now # tray on CKD base line cr 1.43 cr rising bladder scan shows residual urine with prostate enlargement. pt also states that he use to eat naproxen twice a day and is taking it from a long time started on flomax cook cath #Hypoglycemia, IDDM -Glu 50, orange juice and crackers given -BGM ACHS -Insulin sliding scale implemented - no more episodes over night #FEN -Not on any standing fluids -Routine bmp monitoring -Diabetic/Sodium controlled diet #Prophylaxis -Heparin 5000units sq tid #Disposition -full code -med surg Visit type - Emergency Visit Emergency Visit: Yes ED Registration Date: 01/13/19 Care time: The patient presented to the Emergency Department on the above date and was hospitalized for further evaluation of their emergent condition. - New Patient This patient is new to me today: No - Critical Care Critical Care patient: No - Discharge Referral Referred to [facility] Med [facility] No
--- NOTE | 2019-01-15 15:10 | PN ---
Teaching Attending Note Name of Resident: Jean-Paul Steve ATTENDING PHYSICIAN STATEMENT I saw and evaluated the patient. I reviewed the resident's note and discussed the case with the resident. I agree with the resident's findings and plan as documented. SUBJECTIVE: Mr Mendez says he is still having pain in his LLE. Denies cp, sob, n/v. OBJECTIVE: Last Vital Signs Temp Pulse Resp BP Pulse Ox 37.0 C 111 H 18 120/67 96 01/15/19 14:16 01/15/19 14:16 01/15/19 09:00 01/15/19 14:16 01/15/19 07:00 Gen: nad Pulm: ctab w/o w/r/r CV: rrr w/o m/r/g Abd: +bs, s/nt/nd Ext: LLE with 2+ edema CBC, BMP 01/14/19 05:30 01/15/19 06:00 ASSESSMENT AND PLAN: -LLE edema much worse today -repeat venous duplex dopplers -check arterial dopplers -consult vascular surgery -ultrasound shows urinary retention and BPH -place cook -start flomax -see if can remove cook in 24 hours -monitor renal function -case d/w Dr Valle Problem List - Problems (1) Left leg pain Code(s): M79.605 - PAIN IN LEFT LEG (2) AMADOU (acute kidney injury) Code(s): N17.9 - ACUTE KIDNEY FAILURE, UNSPECIFIED (3) CKD (chronic kidney disease) Code(s): N18.9 - CHRONIC KIDNEY DISEASE, UNSPECIFIED Qualifiers: Chronic kidney disease stage: stage 2 (mild) Qualified Code(s): N18.2 - Chronic kidney disease, stage 2 (mild) (4) HTN (hypertension) Code(s): I10 - ESSENTIAL (PRIMARY) HYPERTENSION Qualifiers: Hypertension type: essential hypertension Qualified Code(s): I10 - Essential (primary) hypertension (5) IDDM (insulin dependent diabetes mellitus) Code(s): E11.9 - TYPE 2 DIABETES MELLITUS WITHOUT COMPLICATIONS; Z79.4 - SENIOR LIVING (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 OF INSULIN
[2019-01-15] MEDS ORDERED: PROMETHAZINE HCL 25 MG/1 ML VIAL IVPB PRN (16:50)
[2019-01-15] MEDS ORDERED: INSULIN (NOVOLOG) ASPART 100 UNITS/ML 10ML VIAL ONE (20:57)
[2019-01-15] MEDS: ATORVASTATIN CA 20 MG TABLET (FP) PO SCH (21:07)
[2019-01-16] MEDS: HEPARIN NA (PORCINE) 5,000 UNITS/ML 1ML VIAL SQ SCH ×3 (06:26→22:08)
[2019-01-16] MEDS: INSULIN SLIDING SCALE (NOVOLOG) 1 VIAL SQ SCH ×4 (06:26→22:06)
[2019-01-16] MEDS: CLOPIDOGREL BISULFATE 75 MG TABLET (FP) PO SCH (06:26)
[2019-01-16] MEDS: TAMSULOSIN HCL 0.4 MG CAP PO SCH (08:47)
[2019-01-16] MEDS: ACETAMINOPHEN 325 MG TABLET (FP) PO PRN ×2 (08:47→19:43)
[2019-01-16 09:01] LABS: HEMATOCRIT 26.7 % (35.4-49); HEMOGLOBIN 9.1 GM/dL (11.7-16.9); MCH 28.9 pg (25.7-33.7); MEAN PLT VOLUME 9.1 fl (7.5-11.1); PLATELET COUNT 195 K/MM3 (134-434); RBC 3.14 M/mm3 (4.00-5.60); WHITE BLOOD COUNT 14.4 K/mm3 (4.0-10.0)
[2019-01-16 09:09] LABS: ANION GAP 6 MMOL/L (8-16); BLOOD UREA NITROGEN 57 mg/dL (7-18); CALCIUM 8.1 mg/dL (8.5-10.1); CHLORIDE 111 mmol/L (98-107); CO2 23 mmol/L (21-32); CREATININE 3.1 mg/dL (0.55-1.3); GLUCOSE,RANDOM 210 mg/dL (74-106); POTASSIUM 3.7 mmol/L (3.5-5.1); SODIUM 140 mmol/L (136-145)
[2019-01-16] MEDS: ASPIRIN 81 MG CHEWABLE TABLETS PO SCH (09:38)
--- NOTE | 2019-01-16 11:21 | CONSULT ---
Consult Consult Specialty:: Vascular - History of Present Illness Chief Complaint: SWelling and pain left leg History of Present Illness: 59 yo man with hx as charted, DM, s/p amputation of toes right foot in the past. He says that he was having difficulty walking a few days ago and called an ambulance, the EMT noted the swelling of the leg, the pt tells me he did not really notice it until it was pointed out to him. O)n exam he is awake and alert, does not recall injuring the leg. He has some pain in the lower leg at this time. The right foot has well healed amp of multiple lateral toes, good DP pulse on the right. Left leg is markedly edematous from groin crease to the toes, the foot is very warm and there are no signs of ischemia, although pulses not palpable due to edema. Abdomen is soft but distended. DVT study noted. Rec: CT scan of abdomen and pelvis, would prefer IV and oral contrast but given CRF that may be prohibited, a mass in the pelvis can cause this degree of swelling without DVT. Will f/u with Dr. Singletary - History Source History Provided By: Patient Limitations to Obtaining History: No Limitations - Past Medical History Cardio/Vascular: Yes: CAD, HTN, Hyperlipdemia Renal/: Yes: Renal Inusuff Endocrine: Yes: Diabetes Mellitus - Alcohol/Substance Use Hx Alcohol Use: No - Smoking History Smoking history: Never smoked Have you smoked in the past 12 months: No If you are a former smoker, when did you quit?: >10 years Home Medications - Allergies Allergies/Adverse Reactions: Allergies Allergy/AdvReac Type Severity Reaction Status Date / Time No Known Allergies Allergy Verified 01/13/19 16:49 - Home Medications Home Medications: Ambulatory Orders Aspirin [ASA -] 81 mg PO DAILY 01/13/19 Atorvastatin Ca [Lipitor] 20 mg PO HS 01/13/19 Clopidogrel Bisulfate [Plavix] 75 mg PO AM 01/13/19 Insulin (Novolog 70/30) [Novolog Mix 70/30 Vial] 30 units SQ HS 01/13/19 Insulin (Novolog 70/30) [Novolog Mix 70/30 Vial] 54 units SQ AM 01/13/19 Metoprolol Succinate 50 mg PO AM 01/13/19 Physical Exam Vital Signs: Vital Signs Temperature 98.5 F 01/16/19 10:00 Pulse Rate 103 H 01/16/19 10:00 Respiratory Rate 18 01/16/19 10:00 Blood Pressure 118/66 01/16/19 10:00 O2 Sat by Pulse Oximetry (%) 97 01/16/19 08:00 Labs: CBC, BMP 01/16/19 07:00 01/16/19 07:00
--- NOTE | 2019-01-16 13:05 | PN ---
Progress Note (short form) - Note Progress Note: problems 1. AMADOU 2. lower ext edema 3. leg pain 4. HTN 5. DM 6. CKD Current Medications Acetaminophen (Tylenol -) 650 mg PO Q6H PRN PRN Reason: PAIN OR FEVER Last Admin: 01/16/19 08:47 Dose: 650 mg Aspirin (Asa -) 81 mg PO DAILY [facility] Last Admin: 01/16/19 09:38 Dose: 81 mg Atorvastatin Calcium (Lipitor -) 20 mg PO HS [facility] Last Admin: 01/15/19 21:07 Dose: 20 mg Clopidogrel Bisulfate (Plavix -) 75 mg PO AM [facility] Last Admin: 01/16/19 06:26 Dose: 75 mg Heparin Sodium (Porcine) (Heparin -) 5,000 unit SQ TID [facility] Last Admin: 01/16/19 06:26 Dose: 5,000 unit Insulin Aspart (Novolog Vial Sliding Scale -) 1 vial SQ ACHS [facility]; Protocol Last Admin: 01/16/19 11:15 Dose: 8 units Metoprolol Succinate (Toprol Xl -) 50 mg PO AM [facility] Last Admin: 01/16/19 06:26 Dose: 50 mg Promethazine HCl (Phenergan Injection -) 12.5 mg IVPB Q6H PRN PRN Reason: NAUSEA AND/OR VOMITING Tamsulosin HCl (Flomax -) 0.4 mg PO DAILY@0830 [facility] Last Admin: 01/16/19 08:47 Dose: 0.4 mg Last Vital Signs Temp Pulse Resp BP Pulse Ox 98.5 F 103 H 18 118/66 97 01/16/19 10:00 01/16/19 10:00 01/16/19 10:00 01/16/19 10:00 01/16/19 08:00 lungs clear heart reg abd soft non tender ext no edema CBC, BMP 01/16/19 07:00 01/16/19 07:00 Plan - follow renal ultrasound results - urine studies not done, will re-order - repeat labs in am - left leg edema is worse - hold off lasix - discussed with medical team - renal diet for now - 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
[2019-01-16 13:06] LABS: ANISOCYTOSIS 0; MACROCYTOSIS 0; PLATELET ESTIMATE NORMAL; TARGET CELLS 1+
[2019-01-16 15:42] LABS: RATIO URIN PROTEIN/URIN CREAT 38.88 MG/DL; URINE CREATININE 3.6 mg/dL (20-320)
--- NOTE | 2019-01-16 16:23 | PN ---
Progress Note, Physician Chief Complaint: Mr Mendez still complains of LLE pain and swelling. No cp, sob, n/v. - Current Medication List Current Medications: Active Medications Acetaminophen (Tylenol -) 650 mg PO Q6H PRN PRN Reason: PAIN OR FEVER Last Admin: 01/16/19 08:47 Dose: 650 mg Aspirin (Asa -) 81 mg PO DAILY [facility] Last Admin: 01/16/19 09:38 Dose: 81 mg Atorvastatin Calcium (Lipitor -) 20 mg PO HS [facility] Last Admin: 01/15/19 21:07 Dose: 20 mg Clopidogrel Bisulfate (Plavix -) 75 mg PO AM [facility] Last Admin: 01/16/19 06:26 Dose: 75 mg Heparin Sodium (Porcine) (Heparin -) 5,000 unit SQ TID [facility] Last Admin: 01/16/19 14:10 Dose: 5,000 unit Insulin Aspart (Novolog Vial Sliding Scale -) 1 vial SQ [facility]; Protocol Last Admin: 01/16/19 11:15 Dose: 8 units Metoprolol Succinate (Toprol Xl -) 50 mg PO AM [facility] Last Admin: 01/16/19 06:26 Dose: 50 mg Promethazine HCl (Phenergan Injection -) 12.5 mg IVPB Q6H PRN PRN Reason: NAUSEA AND/OR VOMITING Tamsulosin HCl (Flomax -) 0.4 mg PO DAILY@0830 [facility] Last Admin: 01/16/19 08:47 Dose: 0.4 mg - Objective Vital Signs: Vital Signs Temperature 37.5 C 01/16/19 14:00 Pulse Rate 106 H 01/16/19 14:00 Respiratory Rate 20 01/16/19 14:00 Blood Pressure 117/63 01/16/19 14:00 O2 Sat by Pulse Oximetry (%) 97 01/16/19 08:00 Constitutional: Yes: Well Nourished, No Distress, Calm Cardiovascular: Yes: Regular Rate and Rhythm. No: Gallop, Murmur, Rub Respiratory: Yes: Regular, CTA Bilaterally. No: Rales, Rhonchi, Wheezes Gastrointestinal: Yes: Normal Bowel Sounds, Soft. No: Distention, Tenderness Extremities: Yes: WNL Edema: Yes Edema: LLE: 3+ Labs: CBC, BMP 01/16/19 07:00 01/16/19 07:00 Problem List - Problems (1) Left leg pain Code(s): M79.605 - PAIN IN LEFT LEG (2) AMADOU (acute kidney injury) Code(s): N17.9 - ACUTE KIDNEY FAILURE, UNSPECIFIED (3) CKD (chronic kidney disease) Code(s): N18.9 - CHRONIC KIDNEY DISEASE, UNSPECIFIED Qualifiers: Chronic kidney disease stage: stage 2 (mild) Qualified Code(s): N18.2 - Chronic kidney disease, stage 2 (mild) (4) HTN (hypertension) Code(s): I10 - ESSENTIAL (PRIMARY) HYPERTENSION Qualifiers: Hypertension type: essential hypertension Qualified Code(s): I10 - Essential (primary) hypertension (5) IDDM (insulin dependent diabetes mellitus) Code(s): E11.9 - TYPE 2 DIABETES MELLITUS WITHOUT COMPLICATIONS; Z79.4 - MEDICAL [employer]PARAT[employer]DEL [employer] (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 OF INSULIN Assessment/Plan -case d/w Dr Bruno -recommends CT pelvis to evaluate for mass -done, no mass noted on CT scan -repeat duplex doppler negative -awaiting arterial dopplers -cook placed and draining urine -creatinine slightly improved, continue to monitor -continue flomax -continue current management
[2019-01-16] MEDS ORDERED: INSULIN (NOVOLOG) ASPART 100 UNITS/ML 10ML VIAL ONE (17:13)
[2019-01-16] MEDS: ATORVASTATIN CA 20 MG TABLET (FP) PO SCH (22:08)
[2019-01-17] MEDS: ACETAMINOPHEN 325 MG TABLET (FP) PO PRN ×3 (02:44→19:52)
[2019-01-17] MEDS: HEPARIN NA (PORCINE) 5,000 UNITS/ML 1ML VIAL SQ SCH ×3 (06:31→21:42)
[2019-01-17] MEDS: CLOPIDOGREL BISULFATE 75 MG TABLET (FP) PO SCH (06:31)
[2019-01-17] MEDS: INSULIN SLIDING SCALE (NOVOLOG) 1 VIAL SQ SCH ×4 (06:35→21:41)
[2019-01-17 08:54] LABS: ANION GAP 11 MMOL/L (8-16); BLOOD UREA NITROGEN 57 mg/dL (7-18); CALCIUM 8.2 mg/dL (8.5-10.1); CHLORIDE 104 mmol/L (98-107); CO2 22 mmol/L (21-32); CREATININE 2.9 mg/dL (0.55-1.3); GLUCOSE,RANDOM 238 mg/dL (74-106); MAGNESIUM 2.4 mg/dL (1.8-2.4); PHOSPHOROUS 3.7 mg/dL (2.5-4.9); POTASSIUM 3.7 mmol/L (3.5-5.1); SODIUM 136 mmol/L (136-145)
[2019-01-17 09:02] LABS: BASO % 0.1 % (0-2.0); EOS % 0.6 % (0-4.5); HEMATOCRIT 25.7 % (35.4-49); HEMOGLOBIN 8.8 GM/dL (11.7-16.9); LYMPH % 4.4 % (8-40); MCH 28.5 pg (25.7-33.7); MCHC 34.1 g/dl (32.0-35.9); MEAN CELL VOLUME 83.5 fl (80-96); MONO % 6.8 % (3.8-10.2); NEUT % 88.1 % (42.8-82.8); PLATELET COUNT 200 K/MM3 (134-434); RBC 3.08 M/mm3 (4.00-5.60); RDW 14.8 % (11.9-15.9); WHITE BLOOD COUNT 17.2 K/mm3 (4.0-10.0)
[2019-01-17] MEDS: TAMSULOSIN HCL 0.4 MG CAP PO SCH (09:17)
[2019-01-17] MEDS: ASPIRIN 81 MG CHEWABLE TABLETS PO SCH (09:17)
--- NOTE | 2019-01-17 10:42 | PN ---
Progress Note, Physician Chief Complaint: Mr Mendez says his leg is still swollen and painful, today about the same as yesterday. No cp, sob, n/v. - Current Medication List Current Medications: Active Medications Acetaminophen (Tylenol -) 650 mg PO Q6H PRN PRN Reason: PAIN OR FEVER Last Admin: 01/17/19 02:44 Dose: 650 mg Aspirin (Asa -) 81 mg PO DAILY [facility] Last Admin: 01/17/19 09:17 Dose: 81 mg Atorvastatin Calcium (Lipitor -) 20 mg PO HS [facility] Last Admin: 01/16/19 22:08 Dose: 20 mg Clopidogrel Bisulfate (Plavix -) 75 mg PO AM [facility] Last Admin: 01/17/19 06:31 Dose: 75 mg Heparin Sodium (Porcine) (Heparin -) 5,000 unit SQ TID [facility] Last Admin: 01/17/19 06:31 Dose: 5,000 unit Piperacillin Sod/Tazobactam (Sod 3.375 gm/ Dextrose) 50 mls @ 100 mls/hr IVPB Q8H-IV [facility]; Protocol Insulin Aspart (Novolog Vial Sliding Scale -) 1 vial SQ ACHS [facility]; Protocol Last Admin: 01/17/19 06:35 Dose: 4 units Metoprolol Succinate (Toprol Xl -) 50 mg PO AM [facility] Last Admin: 01/17/19 06:31 Dose: 50 mg Promethazine HCl (Phenergan Injection -) 12.5 mg IVPB Q6H PRN PRN Reason: NAUSEA AND/OR VOMITING Tamsulosin HCl (Flomax -) 0.4 mg PO DAILY@0830 [facility] Last Admin: 01/17/19 09:17 Dose: 0.4 mg - Objective Vital Signs: Vital Signs Temperature 37.2 C 01/17/19 09:00 Pulse Rate 95 H 01/17/19 09:00 Respiratory Rate 20 01/17/19 09:00 Blood Pressure 120/63 01/17/19 09:00 O2 Sat by Pulse Oximetry (%) 95 01/16/19 23:39 Constitutional: Yes: No Distress, Calm, Obese Cardiovascular: Yes: Regular Rate and Rhythm. No: Gallop, Murmur, Rub Respiratory: Yes: Regular, CTA Bilaterally. No: Rales, Rhonchi, Wheezes Gastrointestinal: Yes: Normal Bowel Sounds, Soft. No: Distention, Tenderness Extremities: Yes: Other (warm) Edema: LLE: 2+ Labs: CBC, BMP 01/17/19 07:00 01/17/19 07:00 Problem List - Problems (1) Left leg pain Code(s): M79.605 - PAIN IN LEFT LEG (2) AMADOU (acute kidney injury) Code(s): N17.9 - ACUTE KIDNEY FAILURE, UNSPECIFIED (3) CKD (chronic kidney disease) Code(s): N18.9 - CHRONIC KIDNEY DISEASE, UNSPECIFIED Qualifiers: Chronic kidney disease stage: stage 2 (mild) Qualified Code(s): N18.2 - Chronic kidney disease, stage 2 (mild) (4) HTN (hypertension) Code(s): I10 - ESSENTIAL (PRIMARY) HYPERTENSION Qualifiers: Hypertension type: essential hypertension Qualified Code(s): I10 - Essential (primary) hypertension (5) IDDM (insulin dependent diabetes mellitus) Code(s): E11.9 - TYPE 2 DIABETES MELLITUS WITHOUT COMPLICATIONS; Z79.4 - SHELTER (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 OF INSULIN Assessment/Plan -now with leukocytosis -will start zosyn for possible cellulitis -consult ID -renal function slowly improving -CT LLE to evaluate for fluid or hematoma -continue current regimen
[2019-01-17] MEDS ORDERED: PIPERACILLIN/TAZOB 3.375 GM 3.375 GM in DEXTROSE 5%-WATER - 50 ML IVPB SCH (10:45)
[2019-01-17] MEDS ORDERED: PIPERACILLIN/TAZOBACTAM 3.375 GM VIAL IVPB ONE (11:22)
[2019-01-17] MEDS ORDERED: DEXTROSE 5%-WATER - 50 ML IVPB ONE ×2 (11:22→17:57)
[2019-01-17 13:22] LABS: ANISOCYTOSIS 0; MACROCYTOSIS 0; PLATELET ESTIMATE NORMAL; TARGET CELLS 1+; TOXIC GRANULATION 1+
--- NOTE | 2019-01-17 14:18 | CON.ID ---
Consult Consult Specialty:: infectious diseases Referred by:: Reason for Consultation:: cellulitis of left leg,fever,sepsis - History of Present Illness Chief Complaint: pain and swelling of the left leg History of Present Illness: 59 year old male with past medical history of IDDM, HTN, HLD, PAD, CAD s/p PCI, CKD, was admitted because of left lower extremity pain. patient was admitted to the hospital and was being treated for the pain of the leg.It seems there were no findings that time patient then yesterday started spiking fever and his wbc jumped up today and i was called in to evaluate the patient. patient currently spiking fever complaining of leg pain and says he does not feel well denies any other issues - History Source History Provided By: Patient Limitations to Obtaining History: No Limitations - Past Medical History Cardio/Vascular: Yes: CAD, HTN, Hyperlipdemia Renal/: Yes: Renal Inusuff Endocrine: Yes: Diabetes Mellitus - Alcohol/Substance Use Hx Alcohol Use: No - Smoking History Smoking history: Never smoked Have you smoked in the past 12 months: No If you are a former smoker, when did you quit?: >10 years Home Medications - Allergies Allergies/Adverse Reactions: Allergies Allergy/AdvReac Type Severity Reaction Status Date / Time No Known Allergies Allergy Verified 01/13/19 16:49 - Home Medications Home Medications: Ambulatory Orders Aspirin [ASA -] 81 mg PO DAILY 01/13/19 Atorvastatin Ca [Lipitor] 20 mg PO HS 01/13/19 Clopidogrel Bisulfate [Plavix] 75 mg PO AM 01/13/19 Insulin (Novolog 70/30) [Novolog Mix 70/30 Vial] 30 units SQ HS 01/13/19 Insulin (Novolog 70/30) [Novolog Mix 70/30 Vial] 54 units SQ AM 01/13/19 RX: Metoprolol Succinate 50 mg PO AM 01/13/19 Review of Systems - Review of Systems Constitutional: reports: Fever Eyes: reports: No Symptoms HENT: reports: No Symptoms Neck: reports: No Symptoms Cardiovascular: reports: No Symptoms Respiratory: reports: No Symptoms Gastrointestinal: reports: No Symptoms Genitourinary: reports: No Symptoms Musculoskeletal: reports: Muscle Pain Integumentary: reports: Erythema, Other Neurological: reports: No Symptoms Endocrine: reports: No Symptoms Hematology/Lymphatic: reports: No Symptoms Psychiatric: reports: No Symptoms Physical Exam Vital Signs: Vital Signs Temperature 99.0 F 01/17/19 09:00 Pulse Rate 95 H 01/17/19 09:00 Respiratory Rate 20 01/17/19 09:00 Blood Pressure 120/63 01/17/19 09:00 O2 Sat by Pulse Oximetry (%) 95 01/16/19 23:39 Constitutional: Yes: Well Nourished, Calm, Mild Distress, Obese Eyes: Yes: Conjunctiva Clear HENT: Yes: Atraumatic, Normocephalic Neck: Yes: Supple, Trachea Midline Cardiovascular: Yes: Regular Rate and Rhythm Respiratory: Yes: Regular, CTA Bilaterally Gastrointestinal: Yes: Normal Bowel Sounds, Soft Musculoskeletal: Yes: Other Extremities: Yes: Erythema, Other (swelling) Integumentary: Yes: Erythema, Other (patient has a small swelling on the post part of the leg which looks like a collection) Wound/Incision: Yes: Open to air, Other (not draining) Neurological: Yes: Alert, Oriented Psychiatric: Yes: Alert, Oriented Labs: CBC, BMP 01/17/19 07:00 01/17/19 07:00 Imaging - Results Chest X-ray: Report Reviewed, Image Reviewed X-ray: Report Reviewed, Image Reviewed MRI: Report Reviewed, Image Reviewed Assessment/Plan Problem List - Problems (1) Left leg pain Code(s): M79.605 - PAIN IN LEFT LEG (2) AMADOU (acute kidney injury) Code(s): N17.9 - ACUTE KIDNEY FAILURE, UNSPECIFIED (3) CKD (chronic kidney disease) Code(s): N18.9 - CHRONIC KIDNEY DISEASE, UNSPECIFIED Qualifiers: Chronic kidney disease stage: stage 2 (mild) Qualified Code(s): N18.2 - Chronic kidney disease, stage 2 (mild) (4) HTN (hypertension) Code(s): I10 - ESSENTIAL (PRIMARY) HYPERTENSION Qualifiers: Hypertension type: essential hypertension Qualified Code(s): I10 - Essential (primary) hypertension (5) IDDM (insulin dependent diabetes mellitus) Code(s): E11.9 - TYPE 2 DIABETES MELLITUS WITHOUT COMPLICATIONS; Z79.4 - SENIOR CARE (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 OF INSULIN 6 leukocytosis plan should get a ct scan of the leg will start patient on zosyn elevation of the leg once we have all the reports we will see rest as per the team
[2019-01-17 15:41] LABS: URINE APPEARANCE SLCLOUDY; URINE BILIRUBIN NEGATIVE (<2.0 mg/dL); URINE COLOR YELLOW; URINE GLUCOSE (UA) 1+ (NEGATIVE); URINE KETONE NEGATIVE (NEGATIVE); URINE LEUK ESTERASE NEGATIVE (NEGATIVE); URINE NITRITE NEGATIVE (NEGATIVE); URINE PROTEIN 2+ (NEGATIVE)
[2019-01-17 15:50] LABS: URINE HYALINE CAST 1 /lpf; URINE MUCUS RARE
[2019-01-17] MEDS ORDERED: INSULIN (NOVOLOG) ASPART 100 UNITS/ML 10ML VIAL ONE (17:16)
[2019-01-17] MEDS ORDERED: PIPERACILLIN/TAZOBACTAM 2.25 GM VIAL IVPB ONE (17:57)
[2019-01-17] MEDS: PIPERACILLIN/TAZOB 2.25 GM 2.25 GM in DEXTROSE 5%-WATER - 50 ML IVPB SCH (18:09)
[2019-01-17] MEDS: ATORVASTATIN CA 20 MG TABLET (FP) PO SCH (21:42)
--- NOTE | 2019-01-17 22:53 | PN ---
Progress Note (short form) - Note Progress Note: problems 1. AMADOU 2. lower ext edema 3. leg pain 4. HTN 5. DM 6. CKD Current Medications Acetaminophen (Tylenol -) 650 mg PO Q6H PRN PRN Reason: PAIN OR FEVER Last Admin: 01/17/19 19:52 Dose: 650 mg Aspirin (Asa -) 81 mg PO DAILY [facility] Last Admin: 01/17/19 09:17 Dose: 81 mg Atorvastatin Calcium (Lipitor -) 20 mg PO HS [facility] Last Admin: 01/17/19 21:42 Dose: 20 mg Clopidogrel Bisulfate (Plavix -) 75 mg PO AM [facility] Last Admin: 01/17/19 06:31 Dose: 75 mg Heparin Sodium (Porcine) (Heparin -) 5,000 unit SQ TID [facility] Last Admin: 01/17/19 21:42 Dose: 5,000 unit Piperacillin Sod/Tazobactam (Sod 2.25 gm/ Dextrose) 50 mls @ 100 mls/hr IVPB Q8H-IV [facility]; Protocol Last Admin: 01/17/19 18:09 Dose: 100 mls/hr Insulin Aspart (Novolog Vial Sliding Scale -) 1 vial SQ ACHS [facility]; Protocol Last Admin: 01/17/19 21:41 Dose: 8 units Metoprolol Succinate (Toprol Xl -) 50 mg PO AM [facility] Last Admin: 01/17/19 06:31 Dose: 50 mg Promethazine HCl (Phenergan Injection -) 12.5 mg IVPB Q6H PRN PRN Reason: NAUSEA AND/OR VOMITING Tamsulosin HCl (Flomax -) 0.4 mg PO DAILY@0830 [facility] Last Admin: 01/17/19 09:17 Dose: 0.4 mg Last Vital Signs Temp Pulse Resp BP Pulse Ox 100.1 F H 104 H 20 137/64 95 01/17/19 18:00 01/17/19 18:00 01/17/19 18:00 01/17/19 18:00 01/16/19 23:39 lungs clear heart reg abd soft non tender ext no edema CBC, BMP 01/17/19 07:00 01/17/19 07:00 CBC, BMP 01/16/19 07:00 01/16/19 07:00 Plan same rx
[2019-01-18] MEDS ORDERED: DEXTROSE 5%-WATER - 50 ML IVPB ONE ×3 (02:00→17:00)
[2019-01-18] MEDS ORDERED: PIPERACILLIN/TAZOBACTAM 2.25 GM VIAL IVPB ONE ×3 (02:00→17:00)
[2019-01-18] MEDS: PIPERACILLIN/TAZOB 2.25 GM 2.25 GM in DEXTROSE 5%-WATER - 50 ML IVPB SCH ×3 (02:05→17:45)
[2019-01-18] MEDS: ACETAMINOPHEN 325 MG TABLET (FP) PO PRN ×4 (02:06→22:41)
[2019-01-18] MEDS: HEPARIN NA (PORCINE) 5,000 UNITS/ML 1ML VIAL SQ SCH ×3 (06:22→21:32)
[2019-01-18] MEDS: INSULIN SLIDING SCALE (NOVOLOG) 1 VIAL SQ SCH ×4 (06:23→21:31)
[2019-01-18] MEDS: CLOPIDOGREL BISULFATE 75 MG TABLET (FP) PO SCH (06:23)
[2019-01-18] MEDS ORDERED: INSULIN (NOVOLOG) ASPART 100 UNITS/ML 10ML VIAL ONE (06:39)
[2019-01-18] MEDS: TAMSULOSIN HCL 0.4 MG CAP PO SCH (09:28)
[2019-01-18] MEDS: ASPIRIN 81 MG CHEWABLE TABLETS PO SCH (09:28)
--- NOTE | 2019-01-18 11:39 | PN ---
Physical Exam: SUBJECTIVE: Patient seen and examined swelling in left leg increased. abscess present in left calf draining fluid. excoriation of overlying skin. OBJECTIVE: Vital Signs Period Temp Pulse Resp BP Sys/Cano Pulse Ox Last 24 Hr 98.1 F-101.2 F 98-105 20-20 128-137/61-67 GENERAL: The patient is awake, alert, and fully oriented, in no acute distress. HEAD: Normal with no signs of trauma. EYES: PERRL, extraocular movements intact, sclera anicteric, conjunctiva clear. ENT: dry mucous membranes. NECK: Trachea midline, full range of motion, supple. LUNGS: Breath sounds equal, clear to auscultation bilaterally, no wheezes, no crackles, no accessory muscle use. HEART: Regular rate and rhythm, S1, S2 ABDOMEN: Soft, nontender, nondistended, normoactive bowel sounds, no guarding, no rebound, EXTREMITIES: left leg edema, excoriation of skin, warm to touch, tender, bed sheet soaked from fluid draining from calf PSYCH: Normal mood, SKIN: Warm, dry, Laboratory Results - last 24 hr 01/17/19 01/17/19 01/17/19 07:00 13:35 17:00 Neutrophils % (Manual) 93.0 H Band Neutrophils % 1.0 Lymphocytes % (Manual) 6.0 L Monocytes % (Manual) 0 L D Eosinophils % (Manual) 0.0 Basophils % (Manual) 0.0 Myelocytes % (Man) 0 Promyelocytes % (Man) 0 Blast Cells % (Manual) 0 Metamyelocytes 0 Hypochromia 0 Toxic Granulation 1+ Platelet Estimate Normal Polychromasia 0 Poikilocytosis 0 Anisocytosis 0 Microcytosis 0 Macrocytosis 0 Target Cells 1+ POC Glucometer 271 Urine Color Yellow Urine Appearance Slcloudy Urine pH 5.0 Ur Specific [place] 1.015 Urine Protein 2+ H Urine Glucose (UA) 1+ H Urine Ketones Negative Urine Blood 1+ H Urine Nitrite Negative Urine Bilirubin Negative Urine Urobilinogen 2.0 Ur Leukocyte Esterase Negative Urine WBC (Auto) 2 Urine RBC (Auto) 3 Hyaline Casts 1 Urine Mucus Rare 01/17/19 01/18/19 21:40 05:50 Neutrophils % (Manual) Band Neutrophils % Lymphocytes % (Manual) Monocytes % (Manual) Eosinophils % (Manual) Basophils % (Manual) Myelocytes % (Man) Promyelocytes % (Man) Blast Cells % (Manual) Metamyelocytes Hypochromia Toxic Granulation Platelet Estimate Polychromasia Poikilocytosis Anisocytosis Microcytosis Macrocytosis Target Cells POC Glucometer 303 278 Urine Color Urine Appearance Urine pH Ur Specific [place] Urine Protein Urine Glucose (UA) Urine Ketones Urine Blood Urine Nitrite Urine Bilirubin Urine Urobilinogen Ur Leukocyte Esterase Urine WBC (Auto) Urine RBC (Auto) Hyaline Casts Urine Mucus Active Medications Generic Name Dose Route Start Last Admin Trade Name Freq PRN Reason Stop Dose Admin Acetaminophen 650 mg 01/15/19 07:10 01/18/19 11:13 Tylenol - PO 650 mg Q6H PRN Administration PAIN OR FEVER Aspirin 81 mg 01/15/19 10:00 01/18/19 09:28 Asa - PO 81 mg DAILY LISA Administration Atorvastatin Calcium 20 mg 01/15/19 22:00 01/17/19 21:42 Lipitor - PO 20 mg HS LISA Administration Clopidogrel Bisulfate 75 mg 01/16/19 07:00 01/18/19 06:23 Plavix - PO 75 mg AM LISA Administration Heparin Sodium (Porcine) 5,000 unit 01/15/19 14:00 01/18/19 06:22 Heparin - SQ 5,000 unit TID LISA Administration Piperacillin Sod/Tazobactam 50 mls @ 100 mls/hr 01/17/19 18:00 01/18/19 09:28 Sod 2.25 gm/ Dextrose IVPB 100 mls/hr Q8H-IV LISA Administration Protocol Insulin Aspart 1 vial 01/15/19 11:00 01/18/19 06:23 Novolog Vial Sliding Scale - SQ 6 units ACHS LISA Administration Protocol Metoprolol Succinate 50 mg 01/16/19 07:00 01/18/19 06:22 Toprol Xl - PO 50 mg AM LISA Administration Promethazine HCl 12.5 mg 01/15/19 16:50 Phenergan Injection - IVPB Q6H PRN NAUSEA AND/OR VOMITING Tamsulosin HCl 0.4 mg 01/16/19 08:30 01/18/19 09:28 Flomax - PO 0.4 mg DAILY@0830 LISA Administration ASSESSMENT/PLAN: Patient is a 59 year old male with past medical history of IDDM , HTN, HLD, PAD, CAD s/p PCI, CKD, presented to the ED with 1 day history of left lower extremity pain. # Cellulitis left leg with ? underlying collection IV antibiotics zosyn and vanco Vascular surgery consult local application of bacitracin wound culture blood culture negative ID on case. leg elevation with pillow under the leg - #Elevated BNP -BNP 4724, likely 2/2 CKD -No SOB, lungs CTA, No evidence of congestion on CXR, # tray on CKD base line cr 1.43 cr 2.9 getting better Lee cath in situ 800 urine pt also states that he use to eat naproxen twice a day and is taking it from a long time on flomax #, IDDM BGM sliding scale sugar running oin 250 we will start him on levemir 10 #FEN -Not on any standing fluids -Routine bmp monitoring -Diabetic/Sodium controlled diet #Prophylaxis -Heparin 5000units sq tid #Disposition -full code -med surg Visit type Visit type - Emergency Visit Emergency Visit: Yes ED Registration Date: 01/13/19 Care time: The patient presented to the Emergency Department on the above date and was hospitalized for further evaluation of their emergent condition. - New Patient This patient is new to me today: No - Critical Care Critical Care patient: No
--- NOTE | 2019-01-18 11:50 | PN ---
Progress Note, Physician History of Present Illness: patient still spiking fever leg still painful also noted abscess draining from the post part of the leg leg still swollen - Current Medication List Current Medications: Active Medications Acetaminophen (Tylenol -) 650 mg PO Q6H PRN PRN Reason: PAIN OR FEVER Last Admin: 01/18/19 11:13 Dose: 650 mg Aspirin (Asa -) 81 mg PO DAILY [facility] Last Admin: 01/18/19 09:28 Dose: 81 mg Atorvastatin Calcium (Lipitor -) 20 mg PO HS [facility] Last Admin: 01/17/19 21:42 Dose: 20 mg Bacitracin (Bacitracin -) 1 applic TP DAILY [facility] Clopidogrel Bisulfate (Plavix -) 75 mg PO AM [facility] Last Admin: 01/18/19 06:23 Dose: 75 mg Heparin Sodium (Porcine) (Heparin -) 5,000 unit SQ TID [facility] Last Admin: 01/18/19 06:22 Dose: 5,000 unit Piperacillin Sod/Tazobactam (Sod 2.25 gm/ Dextrose) 50 mls @ 100 mls/hr IVPB Q8H-IV [facility]; Protocol Last Admin: 01/18/19 09:28 Dose: 100 mls/hr Insulin Aspart (Novolog Vial Sliding Scale -) 1 vial SQ ACHS [facility]; Protocol Last Admin: 01/18/19 06:23 Dose: 6 units Metoprolol Succinate (Toprol Xl -) 50 mg PO AM [facility] Last Admin: 01/18/19 06:22 Dose: 50 mg Promethazine HCl (Phenergan Injection -) 12.5 mg IVPB Q6H PRN PRN Reason: NAUSEA AND/OR VOMITING Tamsulosin HCl (Flomax -) 0.4 mg PO DAILY@0830 [facility] Last Admin: 01/18/19 09:28 Dose: 0.4 mg Vancomycin HCl (Vancomycin (Pre-Docked)) 1,000 mg IVPB ONCE ONE; Protocol Stop: 01/18/19 11:44 - Objective Vital Signs: Vital Signs Temperature 100.2 F H 01/18/19 11:12 Pulse Rate 101 H 01/18/19 11:12 Respiratory Rate 20 01/18/19 11:12 Blood Pressure 137/67 01/18/19 11:12 O2 Sat by Pulse Oximetry (%) 95 01/16/19 23:39 Constitutional: Yes: Calm, Mild Distress Cardiovascular: Yes: Regular Rate and Rhythm Respiratory: Yes: Regular, CTA Bilaterally Gastrointestinal: Yes: Normal Bowel Sounds, Soft Musculoskeletal: Yes: Other Extremities: Yes: Erythema, Other (swelling,painful) Edema: LLE: 1+ Wound/Incision: Yes: Open to air, Draining Neurological: Yes: Alert, Oriented Psychiatric: Yes: Alert, Oriented Labs: CBC, BMP 01/17/19 07:00 01/17/19 07:00 Assessment/Plan Problem List - Problems (1) Left leg pain Code(s): M79.605 - PAIN IN LEFT LEG (2) AMADOU (acute kidney injury) Code(s): N17.9 - ACUTE KIDNEY FAILURE, UNSPECIFIED (3) CKD (chronic kidney disease) Code(s): N18.9 - CHRONIC KIDNEY DISEASE, UNSPECIFIED Qualifiers: Chronic kidney disease stage: stage 2 (mild) Qualified Code(s): N18.2 - Chronic kidney disease, stage 2 (mild) (4) HTN (hypertension) Code(s): I10 - ESSENTIAL (PRIMARY) HYPERTENSION Qualifiers: Hypertension type: essential hypertension Qualified Code(s): I10 - Essential (primary) hypertension (5) IDDM (insulin dependent diabetes mellitus) Code(s): E11.9 - TYPE 2 DIABETES MELLITUS WITHOUT COMPLICATIONS; Z79.4 - DIRECTOR OF STUDENT LIFE (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 OF INSULIN 6 leukocytosis 7 abscess of the post part of the leg plan continue abx will add vanco cx to be done rest as per the team
[2019-01-18] MEDS ORDERED: INSULIN (LEVEMIR) 100 UNITS/ML UNITS SQ SCH (12:00)
[2019-01-18] MEDS ORDERED: VANCOMYCIN 1 GM in D5W (PRE-DOCKED) 1,000 MG/250 ML IVPB ONE (12:00)
[2019-01-18] MEDS: BACITRACIN 15 GM TUBE TOPICAL OINTMENT TP SCH (12:13)
[2019-01-18] MEDS: VANCOMYCIN 1 GRAM (PRE-DOCKED) 1,000 MG/250 ML BAG IVPB SCH (12:14)
[2019-01-18 12:24] LABS: HEMOGLOBIN 8.2 GM/dL (11.7-16.9); MCH 28.5 pg (25.7-33.7); MCHC 34.1 g/dl (32.0-35.9); MEAN CELL VOLUME 83.5 fl (80-96); MEAN PLT VOLUME 8.6 fl (7.5-11.1); PLATELET COUNT 200 K/MM3 (134-434); RBC 2.87 M/mm3 (4.00-5.60); RDW 14.9 % (11.9-15.9); WHITE BLOOD COUNT 20.3 K/mm3 (4.0-10.0)
[2019-01-18 13:27] LABS: ANION GAP 8 MMOL/L (8-16); BLOOD UREA NITROGEN 53 mg/dL (7-18); CALCIUM 7.5 mg/dL (8.5-10.1); CHLORIDE 101 mmol/L (98-107); CO2 23 mmol/L (21-32); CREATININE 2.8 mg/dL (0.55-1.3); SODIUM 132 mmol/L (136-145)
[2019-01-18 13:32] LABS: GLUCOSE,RANDOM 310 mg/dL (74-106)
--- NOTE | 2019-01-18 14:43 | PN ---
Progress Note, Physician History of Present Illness: Pt seen and examined at bedside. He denies shortness of breath. He denies fevers. - Current Medication List Current Medications: Active Medications Acetaminophen (Tylenol -) 650 mg PO Q6H PRN PRN Reason: PAIN OR FEVER Last Admin: 01/18/19 11:13 Dose: 650 mg Aspirin (Asa -) 81 mg PO DAILY [facility] Last Admin: 01/18/19 09:28 Dose: 81 mg Atorvastatin Calcium (Lipitor -) 20 mg PO HS [facility] Last Admin: 01/17/19 21:42 Dose: 20 mg Bacitracin (Bacitracin -) 1 applic TP DAILY [facility] Last Admin: 01/18/19 12:13 Dose: 1 applic Clopidogrel Bisulfate (Plavix -) 75 mg PO AM [facility] Last Admin: 01/18/19 06:23 Dose: 75 mg Heparin Sodium (Porcine) (Heparin -) 5,000 unit SQ TID [facility] Last Admin: 01/18/19 06:22 Dose: 5,000 unit Piperacillin Sod/Tazobactam (Sod 2.25 gm/ Dextrose) 50 mls @ 100 mls/hr IVPB Q8H-IV [facility]; Protocol Last Admin: 01/18/19 09:28 Dose: 100 mls/hr Vancomycin HCl (Vancomycin (Pre-Docked)) 1,000 mg in 250 mls @ 200 mls/hr IVPB Q48H [facility]; Protocol Last Admin: 01/18/19 12:14 Dose: 200 mls/hr Insulin Aspart (Novolog Vial Sliding Scale -) 1 vial SQ ACHS [facility]; Protocol Last Admin: 01/18/19 11:47 Dose: 6 units Insulin Detemir (Levemir Vial) 10 units SQ DAILY [facility] Last Admin: 01/18/19 12:13 Dose: 10 units Metoprolol Succinate (Toprol Xl -) 50 mg PO AM [facility] Last Admin: 01/18/19 06:22 Dose: 50 mg Promethazine HCl (Phenergan Injection -) 12.5 mg IVPB Q6H PRN PRN Reason: NAUSEA AND/OR VOMITING Tamsulosin HCl (Flomax -) 0.4 mg PO DAILY@0830 [facility] Last Admin: 01/18/19 09:28 Dose: 0.4 mg - Objective Vital Signs: Vital Signs Temperature 100.2 F H 01/18/19 11:12 Pulse Rate 101 H 01/18/19 11:12 Respiratory Rate 20 01/18/19 11:12 Blood Pressure 137/67 01/18/19 11:12 O2 Sat by Pulse Oximetry (%) 95 01/18/19 09:00 Constitutional: Yes: Calm Eyes: Yes: Conjunctiva Clear HENT: Yes: Atraumatic Neck: Yes: Supple Cardiovascular: Yes: S1, S2 Respiratory: Yes: CTA Bilaterally Gastrointestinal: Yes: Normal Bowel Sounds, Soft Genitourinary: Yes: WNL Musculoskeletal: Yes: WNL Edema: Yes Edema: LLE: 2+ Neurological: Yes: Oriented Psychiatric: Yes: Oriented Labs: CBC, BMP 01/18/19 11:53 01/18/19 11:53 Problem List - Problems (1) AMADOU (acute kidney injury) Code(s): N17.9 - ACUTE KIDNEY FAILURE, UNSPECIFIED (2) CHF (congestive heart failure) Code(s): I50.9 - HEART FAILURE, UNSPECIFIED Qualifiers: Heart failure type: unspecified Heart failure chronicity: acute Qualified Code(s): I50.9 - Heart failure, unspecified (3) CKD (chronic kidney disease) Code(s): N18.9 - CHRONIC KIDNEY DISEASE, UNSPECIFIED Qualifiers: Chronic kidney disease stage: stage 2 (mild) Qualified Code(s): N18.2 - Chronic kidney disease, stage 2 (mild) (4) HTN (hypertension) Code(s): I10 - ESSENTIAL (PRIMARY) HYPERTENSION Qualifiers: Hypertension type: essential hypertension Qualified Code(s): I10 - Essential (primary) hypertension (5) IDDM (insulin dependent diabetes mellitus) Code(s): E11.9 - TYPE 2 DIABETES MELLITUS WITHOUT COMPLICATIONS; Z79.4 - [employer]AN (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 OF INSULIN (6) Left leg pain Code(s): M79.605 - PAIN IN LEFT LEG Assessment/Plan Current Medications Generic Name Dose Route Start Last Admin Trade Name Freq PRN Reason Stop Dose Admin Acetaminophen 650 mg 01/15/19 07:10 01/18/19 11:13 Tylenol - PO 650 mg Q6H PRN Administration PAIN OR FEVER Aspirin 81 mg 01/15/19 10:00 01/18/19 09:28 Asa - PO 81 mg DAILY LISA Administration Atorvastatin Calcium 20 mg 01/15/19 22:00 01/17/19 21:42 Lipitor - PO 20 mg HS LISA Administration Bacitracin 1 applic 01/18/19 11:45 01/18/19 12:13 Bacitracin - TP 1 applic DAILY LISA Administration Clopidogrel Bisulfate 75 mg 01/16/19 07:00 01/18/19 06:23 Plavix - PO 75 mg AM LISA Administration Heparin Sodium (Porcine) 5,000 unit 01/15/19 14:00 01/18/19 06:22 Heparin - SQ 5,000 unit TID LISA Administration Piperacillin Sod/Tazobactam 50 mls @ 100 mls/hr 01/17/19 18:00 01/18/19 09:28 Sod 2.25 gm/ Dextrose IVPB 100 mls/hr Q8H-IV LISA Administration Protocol Vancomycin HCl 1,000 mg in 250 mls @ 200 mls/hr 01/18/19 12:00 01/18/19 12:14 Vancomycin (Pre-Docked) IVPB 200 mls/hr Q48H LISA Administration Protocol Insulin Aspart 1 vial 01/15/19 11:00 01/18/19 11:47 Novolog Vial Sliding Scale - SQ 6 units ACHS LISA Administration Protocol Insulin Detemir 10 units 01/18/19 12:00 01/18/19 12:13 Levemir Vial SQ 10 units DAILY LISA Administration Metoprolol Succinate 50 mg 01/16/19 07:00 01/18/19 06:22 Toprol Xl - PO 50 mg AM LISA Administration Promethazine HCl 12.5 mg 01/15/19 16:50 Phenergan Injection - IVPB Q6H PRN NAUSEA AND/OR VOMITING Tamsulosin HCl 0.4 mg 01/16/19 08:30 01/18/19 09:28 Flomax - PO 0.4 mg DAILY@0830 LISA Administration Impression 1. AMADOU 2. lower ext edema 3. leg pain 4. HTN 5. DM 6. CKD 7. large post void residual 8. 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
--- NOTE | 2019-01-18 15:43 | PN ---
Teaching Attending Note Name of Resident: Jean-Paul Steve ATTENDING PHYSICIAN STATEMENT I saw and evaluated the patient. I reviewed the resident's note and discussed the case with the resident. I agree with the resident's findings and plan as documented. SUBJECTIVE: Mr Mendez says he is fine. Still with leg pain and swelling but slightly improved. No cp, sob, n/v. OBJECTIVE: Last Vital Signs Temp Pulse Resp BP Pulse Ox 37.4 C 104 H 20 107/52 L 95 01/18/19 15:36 01/18/19 15:36 01/18/19 11:12 01/18/19 15:36 01/18/19 09:00 Gen: nad Pulm: ctab w/o w/r/r CV: rrr w/o m/r/g Abd: +bs, s/nt/nd Ext: LLE edema with draining abscess CBC, BMP 01/18/19 11:53 01/18/19 11:53 ASSESSMENT AND PLAN: -patient with cellulitis and abscess -abscess now draining -case d/w vascular surgery, will obtain ultrasound to see if needs further intervention -case d/w Dr Espinoza, add vancomycin -continue zosyn -add levemir -renal function stable Problem List - Problems (1) Left leg pain Code(s): M79.605 - PAIN IN LEFT LEG (2) AMADOU (acute kidney injury) Code(s): N17.9 - ACUTE KIDNEY FAILURE, UNSPECIFIED (3) CKD (chronic kidney disease) Code(s): N18.9 - CHRONIC KIDNEY DISEASE, UNSPECIFIED Qualifiers: Chronic kidney disease stage: stage 2 (mild) Qualified Code(s): N18.2 - Chronic kidney disease, stage 2 (mild) (4) HTN (hypertension) Code(s): I10 - ESSENTIAL (PRIMARY) HYPERTENSION Qualifiers: Hypertension type: essential hypertension Qualified Code(s): I10 - Essential (primary) hypertension (5) IDDM (insulin dependent diabetes mellitus) Code(s): E11.9 - TYPE 2 DIABETES MELLITUS WITHOUT COMPLICATIONS; Z79.4 - BUTTON SEWER HAND (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 OF INSULIN
[2019-01-18] MEDS: ATORVASTATIN CA 20 MG TABLET (FP) PO SCH (21:32)
[2019-01-19] MEDS ORDERED: DEXTROSE 5%-WATER - 50 ML IVPB ONE ×3 (02:02→16:23)
[2019-01-19] MEDS ORDERED: PIPERACILLIN/TAZOBACTAM 2.25 GM VIAL IVPB ONE ×3 (02:02→16:23)
[2019-01-19] MEDS: PIPERACILLIN/TAZOB 2.25 GM 2.25 GM in DEXTROSE 5%-WATER - 50 ML IVPB SCH ×3 (02:11→17:24)
[2019-01-19] MEDS: HEPARIN NA (PORCINE) 5,000 UNITS/ML 1ML VIAL SQ SCH ×3 (06:20→22:13)
[2019-01-19] MEDS: CLOPIDOGREL BISULFATE 75 MG TABLET (FP) PO SCH (06:21)
[2019-01-19] MEDS: INSULIN SLIDING SCALE (NOVOLOG) 1 VIAL SQ SCH ×4 (06:21→22:14)
[2019-01-19] MEDS ORDERED: INSULIN (NOVOLOG) ASPART 100 UNITS/ML 10ML VIAL ONE (07:58)
--- NOTE | 2019-01-19 08:15 | PN ---
Physical Exam: SUBJECTIVE: Patient seen and examined no new issues overnight pt had couple of episodes of fever overnight usg soft tissue reviewed: no collection. pt states he is feeling better. OBJECTIVE: Vital Signs Period Temp Pulse Resp BP Sys/Cano Pulse Ox Last 24 Hr 99.4 F-102.5 F 97-104 18-20 107-143/52-68 95-95 GENERAL: The patient is awake, alert, and fully oriented, in no acute distress. HEAD: Normal with no signs of trauma. EYES: PERRL, extraocular movements intact, sclera anicteric, conjunctiva clear. ENT: dry mucous membranes. NECK: Trachea midline, full range of motion, supple. LUNGS: Breath sounds equal, clear to auscultation bilaterally, no wheezes, no crackles, no accessory muscle use. HEART: Regular rate and rhythm, S1, S2 ABDOMEN: Soft, nontender, nondistended, normoactive bowel sounds, no guarding, no rebound, EXTREMITIES: left leg edema, excoriation of skin, warm to touch, tender, gauze present PSYCH: Normal mood, SKIN: Warm, dry, Laboratory Results - last 24 hr 01/16/19 01/18/19 01/18/19 05:42 11:37 11:53 WBC 20.3 H RBC 2.87 L Hgb 8.2 L Hct 24.0 L MCV 83.5 MCH 28.5 MCHC 34.1 RDW 14.9 Plt Count 200 MPV 8.6 Sodium Potassium Chloride Carbon Dioxide Anion Gap BUN Creatinine Creat Clearance w eGFR POC Glucometer 218 285 Random Glucose Calcium 01/18/19 01/18/19 01/18/19 11:53 17:32 21:30 WBC RBC Hgb Hct MCV MCH MCHC RDW Plt Count MPV Sodium 132 L Potassium 4.0 Chloride 101 Carbon Dioxide 23 Anion Gap 8 BUN 53 H Creatinine 2.8 H Creat Clearance w eGFR 23.15 POC Glucometer 343 283 Random Glucose 310 H* Calcium 7.5 L 01/19/19 06:19 WBC RBC Hgb Hct MCV MCH MCHC RDW Plt Count MPV Sodium Potassium Chloride Carbon Dioxide Anion Gap BUN Creatinine Creat Clearance w eGFR POC Glucometer 230 Random Glucose Calcium Active Medications Generic Name Dose Route Start Last Admin Trade Name Freq PRN Reason Stop Dose Admin Acetaminophen 650 mg 01/15/19 07:10 01/18/19 22:41 Tylenol - PO 650 mg Q6H PRN Administration PAIN OR FEVER Aspirin 81 mg 01/15/19 10:00 01/18/19 09:28 Asa - PO 81 mg DAILY LISA Administration Atorvastatin Calcium 20 mg 01/15/19 22:00 01/18/19 21:32 Lipitor - PO 20 mg HS LISA Administration Bacitracin 1 applic 01/18/19 11:45 01/18/19 12:13 Bacitracin - TP 1 applic DAILY [facility] Administration Clopidogrel Bisulfate 75 mg 01/16/19 07:00 01/19/19 06:21 Plavix - PO 75 mg AM [facility] Administration Heparin Sodium (Porcine) 5,000 unit 01/15/19 14:00 01/19/19 06:20 Heparin - SQ 5,000 unit TID LISA Administration Piperacillin Sod/Tazobactam 50 mls @ 100 mls/hr 01/17/19 18:00 01/19/19 02:11 Sod 2.25 gm/ Dextrose IVPB 100 mls/hr Q8H-IV [facility] Administration Protocol Vancomycin HCl 1,000 mg in 250 mls @ 200 mls/hr 01/18/19 12:00 01/18/19 12:14 Vancomycin (Pre-Docked) IVPB 200 mls/hr Q48H LISA Administration Protocol Insulin Aspart 1 vial 01/15/19 11:00 01/19/19 06:21 Novolog Vial Sliding Scale - SQ 4 units ACHS LISA Administration Protocol Metoprolol Succinate 50 mg 01/16/19 07:00 01/19/19 06:21 Toprol Xl - PO 50 mg AM [facility] Administration Promethazine HCl 12.5 mg 01/15/19 16:50 Phenergan Injection - IVPB Q6H PRN NAUSEA AND/OR VOMITING Tamsulosin HCl 0.4 mg 01/16/19 08:30 01/18/19 09:28 Flomax - PO 0.4 mg DAILY@0830 [facility] Administration ASSESSMENT/PLAN: Patient is a 59 year old male with past medical history of IDDM, HTN, HLD, PAD, CAD s/p PCI, CKD, presented to the ED with 1 day history of left lower extremity pain. # Cellulitis left leg with IV antibiotics zosyn and vanco Vascular surgery on case local application of bacitracin wound culture blood culture negative ID on case. leg elevation with pillow under the leg #Elevated BNP -BNP 4724, likely 2/2 CKD -No SOB, No evidence of congestion on CXR, # tray on CKD base line cr 1.43 cr 2.9 getting better Lee cath in situ 1100 urine pt also states that he use to eat naproxen twice a day and is taking it from a long time on flomax #, IDDM BGM sliding scale sugar running oin 250 levemir increased to 10 bid #HTN toprol xl 50 daily #FEN -Not on any standing fluids -Routine bmp monitoring -Diabetic/Sodium controlled diet #Prophylaxis -Heparin 5000units sq tid #Disposition -full code -med surg Visit type - Emergency Visit Emergency Visit: Yes ED Registration Date: 01/13/19 Care time: The patient presented to the Emergency Department on the above date and was hospitalized for further evaluation of their emergent condition. - New Patient This patient is new to me today: No - Critical Care Critical Care patient: No
[2019-01-19 08:23] LABS: ALBUMIN 1.3 g/dl (3.4-5.0); ALK PHOS 122 U/L (45-117); ANION GAP 10 MMOL/L (8-16); BILIRUBIN,TOTAL 0.7 mg/dL (0.2-1); BLOOD UREA NITROGEN 53 mg/dL (7-18); CALCIUM 7.5 mg/dL (8.5-10.1); CHLORIDE 102 mmol/L (98-107); CO2 23 mmol/L (21-32); CREATININE 2.7 mg/dL (0.55-1.3); GLUCOSE,RANDOM 242 mg/dL (74-106); POTASSIUM 3.7 mmol/L (3.5-5.1); SGOT/AST 22 U/L (15-37); SGPT/ALT 11 U/L (13-61); SODIUM 135 mmol/L (136-145); TOT PROT 5.3 g/dl (6.4-8.2)
[2019-01-19] MEDS: INSULIN (LEVEMIR) 100 UNITS/ML UNITS SQ SCH ×2 (09:15→22:15)
[2019-01-19] MEDS: ACETAMINOPHEN 325 MG TABLET (FP) PO PRN ×3 (09:15→22:12)
[2019-01-19] MEDS: ASPIRIN 81 MG CHEWABLE TABLETS PO SCH (09:15)
[2019-01-19] MEDS: TAMSULOSIN HCL 0.4 MG CAP PO SCH (09:15)
[2019-01-19] MEDS: BACITRACIN 15 GM TUBE TOPICAL OINTMENT TP SCH (09:16)
[2019-01-19] MEDS ORDERED: INSULIN (LEVEMIR) 100 UNITS/ML UNITS SQ ONE (09:29)
--- NOTE | 2019-01-19 09:54 | PN ---
Progress Note (short form) - Note Progress Note: Pt seen at bedside, has some clear drainage from the back of the left calf, no change in pain status. Leg about the same, perhaps slightly smaller [leg not being elevated] WBC elevated Some denuded skin on posterior calf with lymphorrhea, no purulence or cellulitis. No softening or abscess clinically [US noted]. Rec: no intervention needed, elevate the leg, ABs per ID/Med.
[2019-01-19 10:25] LABS: BASO % 0.2 % (0-2.0); EOS % 0.5 % (0-4.5); HEMATOCRIT 24.6 % (35.4-49); HEMOGLOBIN 8.3 GM/dL (11.7-16.9); LYMPH % 5.1 % (8-40); MCH 28.4 pg (25.7-33.7); MCHC 33.6 g/dl (32.0-35.9); MEAN CELL VOLUME 84.4 fl (80-96); MEAN PLT VOLUME 8.9 fl (7.5-11.1); MONO % 3.6 % (3.8-10.2); NEUT % 90.6 % (42.8-82.8); PLATELET COUNT 189 K/MM3 (134-434); RBC 2.92 M/mm3 (4.00-5.60); WHITE BLOOD COUNT 19.6 K/mm3 (4.0-10.0)
--- NOTE | 2019-01-19 10:39 | PN ---
Teaching Attending Note Name of Resident: Jean-Paul Steve ATTENDING PHYSICIAN STATEMENT I saw and evaluated the patient. I reviewed the resident's note and discussed the case with the resident. I agree with the resident's findings and plan as documented. SUBJECTIVE: Mr Mendez complains of leg pain. No cp, sob, n/v. OBJECTIVE: Last Vital Signs Temp Pulse Resp BP Pulse Ox 37.8 C H 96 H 20 139/70 95 01/19/19 09:19 01/19/19 09:19 01/19/19 09:19 01/19/19 09:01/18/19 22:00 Gen: nad Pulm: ctab w/o w/r/r CV: rrr w/o m/r/g Abd: +bs, s/nt/nd Ext: 2+ LLE edema, slightly improved CBC, BMP 01/19/19 07:00 01/19/19 07:00 ASSESSMENT AND PLAN: -continue vancomycin and zosyn per ID -WBC slightly improved -wound draining serosanguinous fluid -appreciate vascular surgery assistance -will discuss with Dr Valle about renal function -levemir increased to 10 units bid -may need to increase further for better control -continue current management Problem List - Problems (1) Left leg pain Code(s): M79.605 - PAIN IN LEFT LEG (2) AMADOU (acute kidney injury) Code(s): N17.9 - ACUTE KIDNEY FAILURE, UNSPECIFIED (3) CKD (chronic kidney disease) Code(s): N18.9 - CHRONIC KIDNEY DISEASE, UNSPECIFIED Qualifiers: Chronic kidney disease stage: stage 2 (mild) Qualified Code(s): N18.2 - Chronic kidney disease, stage 2 (mild) (4) HTN (hypertension) Code(s): I10 - ESSENTIAL (PRIMARY) HYPERTENSION Qualifiers: Hypertension type: essential hypertension Qualified Code(s): I10 - Essential (primary) hypertension (5) IDDM (insulin dependent diabetes mellitus) Code(s): E11.9 - TYPE 2 DIABETES MELLITUS WITHOUT COMPLICATIONS; Z79.4 - [employer]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
[2019-01-19 11:40] LABS: ANISOCYTOSIS 0; MACROCYTOSIS 0; PLATELET ESTIMATE NORMAL; TARGET CELLS 1+; TOXIC GRANULATION 1+
--- NOTE | 2019-01-19 12:52 | PN ---
Progress Note, Physician History of Present Illness: continues to spike fever patients wbc increasing leg painful - Current Medication List Current Medications: Active Medications Acetaminophen (Tylenol -) 650 mg PO Q6H PRN PRN Reason: PAIN OR FEVER Last Admin: 01/19/19 09:15 Dose: 650 mg Aspirin (Asa -) 81 mg PO DAILY [facility] Last Admin: 01/19/19 09:15 Dose: 81 mg Atorvastatin Calcium (Lipitor -) 20 mg PO HS [facility] Last Admin: 01/18/19 21:32 Dose: 20 mg Bacitracin (Bacitracin -) 1 applic TP DAILY [facility] Last Admin: 01/19/19 09:16 Dose: 1 applic Clopidogrel Bisulfate (Plavix -) 75 mg PO AM [facility] Last Admin: 01/19/19 06:21 Dose: 75 mg Heparin Sodium (Porcine) (Heparin -) 5,000 unit SQ TID [facility] Last Admin: 01/19/19 06:20 Dose: 5,000 unit Piperacillin Sod/Tazobactam (Sod 2.25 gm/ Dextrose) 50 mls @ 100 mls/hr IVPB Q8H-IV [facility]; Protocol Last Admin: 01/19/19 09:15 Dose: 100 mls/hr Vancomycin HCl (Vancomycin (Pre-Docked)) 1,000 mg in 250 mls @ 200 mls/hr IVPB Q48H [facility]; Protocol Last Admin: 01/18/19 12:14 Dose: 200 mls/hr Insulin Aspart (Novolog Vial Sliding Scale -) 1 vial SQ ACHS [facility]; Protocol Last Admin: 01/19/19 11:29 Dose: 6 units Insulin Detemir (Levemir Vial) 10 units SQ BID@0700,2200 [facility] Last Admin: 01/19/19 09:15 Dose: 10 units Metoprolol Succinate (Toprol Xl -) 50 mg PO AM [facility] Last Admin: 01/19/19 06:21 Dose: 50 mg Promethazine HCl (Phenergan Injection -) 12.5 mg IVPB Q6H PRN PRN Reason: NAUSEA AND/OR VOMITING Tamsulosin HCl (Flomax -) 0.4 mg PO DAILY@0830 [facility] Last Admin: 01/19/19 09:15 Dose: 0.4 mg - Objective Vital Signs: Vital Signs Temperature 100.6 F H 01/19/19 10:40 Pulse Rate 94 H 01/19/19 10:40 Respiratory Rate 20 01/19/19 10:40 Blood Pressure 128/62 01/19/19 10:40 O2 Sat by Pulse Oximetry (%) 97 01/19/19 09:00 Constitutional: Yes: No Distress, Calm Cardiovascular: Yes: Regular Rate and Rhythm Respiratory: Yes: Regular, CTA Bilaterally Gastrointestinal: Yes: Normal Bowel Sounds, Soft Musculoskeletal: Yes: Other Extremities: Yes: Erythema, Other (swelling of the left leg) Integumentary: Yes: Erythema, Other (swelling) Labs: CBC, BMP 01/19/19 07:00 01/19/19 07:00 - ....Imaging Cat Scan: Report Reviewed, Image Reviewed Assessment/Plan Problem List - Problems (1) Left leg pain Code(s): M79.605 - PAIN IN LEFT LEG (2) AMADOU (acute kidney injury) Code(s): N17.9 - ACUTE KIDNEY FAILURE, UNSPECIFIED (3) CKD (chronic kidney disease) Code(s): N18.9 - CHRONIC KIDNEY DISEASE, UNSPECIFIED Qualifiers: Chronic kidney disease stage: stage 2 (mild) Qualified Code(s): N18.2 - Chronic kidney disease, stage 2 (mild) (4) HTN (hypertension) Code(s): I10 - ESSENTIAL (PRIMARY) HYPERTENSION Qualifiers: Hypertension type: essential hypertension Qualified Code(s): I10 - Essential (primary) hypertension (5) IDDM (insulin dependent diabetes mellitus) Code(s): E11.9 - TYPE 2 DIABETES MELLITUS WITHOUT COMPLICATIONS; Z79.4 - CUSTODIAL (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 OF INSULIN 6 leukocytosis plan continue zosyn and vanco monitor wbc await for cx report elevation of leg get vascular rest as per the team
[2019-01-19] MEDS ORDERED: FUROSEMIDE 40 MG TABLET (FP) PO ONE (13:03)
--- NOTE | 2019-01-19 13:03 | PN ---
Progress Note, Physician History of Present Illness: Pt seen and examined at bedside. He is awake and alert. He complains of left leg discomfort and lower ext edema. - Current Medication List Current Medications: Active Medications Acetaminophen (Tylenol -) 650 mg PO Q6H PRN PRN Reason: PAIN OR FEVER Last Admin: 01/19/19 09:15 Dose: 650 mg Aspirin (Asa -) 81 mg PO DAILY [facility] Last Admin: 01/19/19 09:15 Dose: 81 mg Atorvastatin Calcium (Lipitor -) 20 mg PO HS [facility] Last Admin: 01/18/19 21:32 Dose: 20 mg Bacitracin (Bacitracin -) 1 applic TP DAILY [facility] Last Admin: 01/19/19 09:16 Dose: 1 applic Clopidogrel Bisulfate (Plavix -) 75 mg PO AM [facility] Last Admin: 01/19/19 06:21 Dose: 75 mg Heparin Sodium (Porcine) (Heparin -) 5,000 unit SQ TID [facility] Last Admin: 01/19/19 06:20 Dose: 5,000 unit Piperacillin Sod/Tazobactam (Sod 2.25 gm/ Dextrose) 50 mls @ 100 mls/hr IVPB Q8H-IV [facility]; Protocol Last Admin: 01/19/19 09:15 Dose: 100 mls/hr Vancomycin HCl (Vancomycin (Pre-Docked)) 1,000 mg in 250 mls @ 200 mls/hr IVPB Q48H [facility]; Protocol Last Admin: 01/18/19 12:14 Dose: 200 mls/hr Insulin Aspart (Novolog Vial Sliding Scale -) 1 vial SQ ACHS [facility]; Protocol Last Admin: 01/19/19 11:29 Dose: 6 units Insulin Detemir (Levemir Vial) 10 units SQ BID@0700,2200 [facility] Last Admin: 01/19/19 09:15 Dose: 10 units Metoprolol Succinate (Toprol Xl -) 50 mg PO AM [facility] Last Admin: 01/19/19 06:21 Dose: 50 mg Promethazine HCl (Phenergan Injection -) 12.5 mg IVPB Q6H PRN PRN Reason: NAUSEA AND/OR VOMITING Tamsulosin HCl (Flomax -) 0.4 mg PO DAILY@0830 [facility] Last Admin: 01/19/19 09:15 Dose: 0.4 mg - Objective Vital Signs: Vital Signs Temperature 100.6 F H 01/19/19 10:40 Pulse Rate 94 H 01/19/19 10:40 Respiratory Rate 20 01/19/19 10:40 Blood Pressure 128/62 01/19/19 10:40 O2 Sat by Pulse Oximetry (%) 97 01/19/19 09:00 Constitutional: Yes: Calm Eyes: Yes: Conjunctiva Clear HENT: Yes: Atraumatic Neck: Yes: Supple Cardiovascular: Yes: S1, S2 Respiratory: Yes: CTA Bilaterally Gastrointestinal: Yes: Soft Genitourinary: Yes: WNL Edema: Yes Edema: LLE: 2+, RLE: 1+ Neurological: Yes: Oriented Psychiatric: Yes: Oriented Labs: CBC, BMP 01/19/19 07:00 01/19/19 07:00 Problem List - Problems (1) AMADOU (acute kidney injury) Code(s): N17.9 - ACUTE KIDNEY FAILURE, UNSPECIFIED (2) CHF (congestive heart failure) Code(s): I50.9 - HEART FAILURE, UNSPECIFIED Qualifiers: Heart failure type: unspecified Heart failure chronicity: acute Qualified Code(s): I50.9 - Heart failure, unspecified (3) CKD (chronic kidney disease) Code(s): N18.9 - CHRONIC KIDNEY DISEASE, UNSPECIFIED Qualifiers: Chronic kidney disease stage: stage 2 (mild) Qualified Code(s): N18.2 - Chronic kidney disease, stage 2 (mild) (4) HTN (hypertension) Code(s): I10 - ESSENTIAL (PRIMARY) HYPERTENSION Qualifiers: Hypertension type: essential hypertension Qualified Code(s): I10 - Essential (primary) hypertension (5) IDDM (insulin dependent diabetes mellitus) Code(s): E11.9 - TYPE 2 DIABETES MELLITUS WITHOUT COMPLICATIONS; 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 (6) Left leg pain Code(s): M79.605 - PAIN IN LEFT LEG Assessment/Plan Current Medications Generic Name Dose Route Start Last Admin Trade Name Freq PRN Reason Stop Dose Admin Acetaminophen 650 mg 01/15/19 07:10 01/19/19 09:15 Tylenol - PO 650 mg Q6H PRN Administration PAIN OR FEVER Aspirin 81 mg 01/15/19 10:00 01/19/19 09:15 Asa - PO 81 mg DAILY [facility] Administration Atorvastatin Calcium 20 mg 01/15/19 22:00 01/18/19 21:32 Lipitor - PO 20 mg HS [facility] Administration Bacitracin 1 applic 01/18/19 11:45 01/19/19 09:16 Bacitracin - TP 1 applic DAILY [facility] Administration Clopidogrel Bisulfate 75 mg 01/16/19 07:00 01/19/19 06:21 Plavix - PO 75 mg AM [facility] Administration Heparin Sodium (Porcine) 5,000 unit 01/15/19 14:00 01/19/19 06:20 Heparin - SQ 5,000 unit TID [facility] Administration Piperacillin Sod/Tazobactam 50 mls @ 100 mls/hr 01/17/19 18:00 01/19/19 09:15 Sod 2.25 gm/ Dextrose IVPB 100 mls/hr Q8H-IV [facility] Administration Protocol Vancomycin HCl 1,000 mg in 250 mls @ 200 mls/hr 01/18/19 12:00 01/18/19 12:14 Vancomycin (Pre-Docked) IVPB 200 mls/hr Q48H [facility] Administration Protocol Insulin Aspart 1 vial 01/15/19 11:00 01/19/19 11:29 Novolog Vial Sliding Scale - SQ 6 units ACHS [facility] Administration Protocol Insulin Detemir 10 units 01/19/19 09:00 01/19/19 09:15 Levemir Vial SQ 10 units BID@0700,2200 [facility] Administration Metoprolol Succinate 50 mg 01/16/19 07:00 01/19/19 06:21 Toprol Xl - PO 50 mg AM [facility] Administration Promethazine HCl 12.5 mg 01/15/19 16:50 Phenergan Injection - IVPB Q6H PRN NAUSEA AND/OR VOMITING Tamsulosin HCl 0.4 mg 01/16/19 08:30 01/19/19 09:15 Flomax - PO 0.4 mg DAILY@0830 [facility] Administration Impression 1. AMADOU 2. lower ext edema 3. leg pain 4. HTN 5. DM 6. CKD 7. large post void residual 8. 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
[2019-01-19] MEDS ORDERED: ACETAMINOPHEN 500 MG TABLET (FP) PO ONE (14:04)
[2019-01-19 18:27] LABS: RATIO URIN PROTEIN/URIN CREAT 1.34 MG/DL
[2019-01-19] MEDS: ATORVASTATIN CA 20 MG TABLET (FP) PO SCH (22:13)
[2019-01-20] MEDS ORDERED: PIPERACILLIN/TAZOBACTAM 2.25 GM VIAL IVPB ONE ×3 (01:12→17:06)
[2019-01-20] MEDS ORDERED: DEXTROSE 5%-WATER - 50 ML IVPB ONE ×3 (01:13→17:06)
[2019-01-20] MEDS: PIPERACILLIN/TAZOB 2.25 GM 2.25 GM in DEXTROSE 5%-WATER - 50 ML IVPB SCH ×3 (01:49→17:12)
[2019-01-20] MEDS: ACETAMINOPHEN 325 MG TABLET (FP) PO PRN ×3 (03:46→19:06)
[2019-01-20] MEDS: INSULIN (LEVEMIR) 100 UNITS/ML UNITS SQ SCH ×2 (06:11→23:13)
[2019-01-20] MEDS: HEPARIN NA (PORCINE) 5,000 UNITS/ML 1ML VIAL SQ SCH ×3 (06:12→23:13)
[2019-01-20] MEDS: CLOPIDOGREL BISULFATE 75 MG TABLET (FP) PO SCH (06:12)
[2019-01-20] MEDS: INSULIN SLIDING SCALE (NOVOLOG) 1 VIAL SQ SCH ×4 (06:12→23:14)
[2019-01-20] MEDS ORDERED: INSULIN (NOVOLOG) ASPART 100 UNITS/ML 10ML VIAL ONE ×2 (06:31→10:50)
[2019-01-20 07:46] LABS: BASO % 0.1 % (0-2.0); EOS % 0.6 % (0-4.5); HEMATOCRIT 23.6 % (35.4-49); LYMPH % 4.8 % (8-40); MCH 28.4 pg (25.7-33.7); MCHC 33.9 g/dl (32.0-35.9); MEAN CELL VOLUME 83.6 fl (80-96); MEAN PLT VOLUME 8.4 fl (7.5-11.1); MONO % 4.2 % (3.8-10.2); NEUT % 90.3 % (42.8-82.8); PLATELET COUNT 187 K/MM3 (134-434); RBC 2.82 M/mm3 (4.00-5.60); RDW 15.1 % (11.9-15.9)
[2019-01-20 07:55] LABS: ALBUMIN 1.2 g/dl (3.4-5.0); ALK PHOS 117 U/L (45-117); ANION GAP 8 MMOL/L (8-16); BILIRUBIN,TOTAL 0.6 mg/dL (0.2-1); BLOOD UREA NITROGEN 51 mg/dL (7-18); CALCIUM 7.5 mg/dL (8.5-10.1); CHLORIDE 103 mmol/L (98-107); CO2 24 mmol/L (21-32); CREATININE 2.6 mg/dL (0.55-1.3); GLUCOSE,RANDOM 217 mg/dL (74-106); MAGNESIUM 2.4 mg/dL (1.8-2.4); PHOSPHOROUS 3.3 mg/dL (2.5-4.9); POTASSIUM 3.9 mmol/L (3.5-5.1); SGOT/AST 23 U/L (15-37); SGPT/ALT 15 U/L (13-61); SODIUM 135 mmol/L (136-145); TOT PROT 5.4 g/dl (6.4-8.2)
[2019-01-20] MEDS: CLINDAMYCIN 600MG PREMIX IVPB 600 MG/50 ML BAG IVPB SCH ×2 (09:27→17:12)
[2019-01-20] MEDS: TAMSULOSIN HCL 0.4 MG CAP PO SCH (09:27)
[2019-01-20] MEDS: ASPIRIN 81 MG CHEWABLE TABLETS PO SCH (09:27)
[2019-01-20] MEDS: BACITRACIN 15 GM TUBE TOPICAL OINTMENT TP SCH (09:27)
[2019-01-20 10:16] LABS: ANISOCYTOSIS 1+; MACROCYTOSIS 1+; PLATELET ESTIMATE NORMAL; TARGET CELLS 1+; TOXIC GRANULATION 1+
[2019-01-20] MEDS: VANCOMYCIN 1 GRAM (PRE-DOCKED) 1,000 MG/250 ML BAG IVPB SCH (11:33)
--- NOTE | 2019-01-20 12:26 | PN ---
Progress Note, Physician History of Present Illness: continues to spike fever leg still painful and swollen - Current Medication List Current Medications: Active Medications Acetaminophen (Tylenol -) 650 mg PO Q6H PRN PRN Reason: PAIN OR FEVER Last Admin: 01/20/19 09:29 Dose: 650 mg Aspirin (Asa -) 81 mg PO DAILY [facility] Last Admin: 01/20/19 09:27 Dose: 81 mg Atorvastatin Calcium (Lipitor -) 20 mg PO HS [facility] Last Admin: 01/19/19 22:13 Dose: 20 mg Bacitracin (Bacitracin -) 1 applic TP DAILY [facility] Last Admin: 01/20/19 09:27 Dose: 1 applic Clopidogrel Bisulfate (Plavix -) 75 mg PO AM [facility] Last Admin: 01/20/19 06:12 Dose: 75 mg Heparin Sodium (Porcine) (Heparin -) 5,000 unit SQ TID [facility] Last Admin: 01/20/19 06:12 Dose: 5,000 unit Piperacillin Sod/Tazobactam (Sod 2.25 gm/ Dextrose) 50 mls @ 100 mls/hr IVPB Q8H-IV [facility]; Protocol Last Admin: 01/20/19 09:27 Dose: 100 mls/hr Clindamycin Phosphate (Cleocin 600 Mg Premix Ivpb -) 600 mg in 50 mls @ 100 mls /hr IVPB Q8H-IV [facility]; Protocol Last Admin: 01/20/19 09:27 Dose: 100 mls/hr Vancomycin HCl (Vancomycin (Pre-Docked)) 1,000 mg in 250 mls @ 200 mls/hr IVPB DAILY@1200 [facility]; Protocol Insulin Aspart (Novolog Vial Sliding Scale -) 1 vial SQ ACHS [facility]; Protocol Last Admin: 01/20/19 10:50 Dose: 6 units Insulin Detemir (Levemir Vial) 10 units SQ BID@0700,2200 [facility] Last Admin: 01/20/19 06:11 Dose: 10 units Metoprolol Succinate (Toprol Xl -) 50 mg PO AM [facility] Last Admin: 01/20/19 06:12 Dose: 50 mg Promethazine HCl (Phenergan Injection -) 12.5 mg IVPB Q6H PRN PRN Reason: NAUSEA AND/OR VOMITING Tamsulosin HCl (Flomax -) 0.4 mg PO DAILY@0830 [facility] Last Admin: 01/20/19 09:27 Dose: 0.4 mg - Objective Vital Signs: Vital Signs Temperature 98.0 F 01/20/19 09:00 Pulse Rate 98 H 01/20/19 09:00 Respiratory Rate 20 01/20/19 09:00 Blood Pressure 116/58 L 01/20/19 09:00 O2 Sat by Pulse Oximetry (%) 95 01/20/19 09:00 Constitutional: Yes: Calm, Mild Distress Cardiovascular: Yes: Regular Rate and Rhythm Gastrointestinal: Yes: Normal Bowel Sounds, Soft Musculoskeletal: Yes: WNL Extremities: Yes: Other Wound/Incision: Yes: Open to air, Other Neurological: Yes: Alert, Oriented Psychiatric: Yes: Alert, Oriented Labs: CBC, BMP 01/20/19 07:00 01/20/19 07:00 Assessment/Plan Problem List - Problems (1) Left leg pain Code(s): M79.605 - PAIN IN LEFT LEG (2) AMADOU (acute kidney injury) Code(s): N17.9 - ACUTE KIDNEY FAILURE, UNSPECIFIED (3) CKD (chronic kidney disease) Code(s): N18.9 - CHRONIC KIDNEY DISEASE, UNSPECIFIED Qualifiers: Chronic kidney disease stage: stage 2 (mild) Qualified Code(s): N18.2 - Chronic kidney disease, stage 2 (mild) (4) HTN (hypertension) Code(s): I10 - ESSENTIAL (PRIMARY) HYPERTENSION Qualifiers: Hypertension type: essential hypertension Qualified Code(s): I10 - Essential (primary) hypertension (5) IDDM (insulin dependent diabetes mellitus) Code(s): E11.9 - TYPE 2 DIABETES MELLITUS WITHOUT COMPLICATIONS; 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
[2019-01-20] MEDS ORDERED: ACETAMINOPHEN 1000 MG/100 ML VIAL (NON FORMULARY) IVPB ONE (13:26)
--- NOTE | 2019-01-20 13:35 | PN ---
Progress Note, Physician History of Present Illness: Pt seen and examined at bedside. He is awake and alert. He complains of discomfort from his left leg. He denies shortness of breath. - Current Medication List Current Medications: Active Medications Acetaminophen (Tylenol -) 650 mg PO Q6H PRN PRN Reason: PAIN OR FEVER Last Admin: 01/20/19 09:29 Dose: 650 mg Aspirin (Asa -) 81 mg PO DAILY [facility] Last Admin: 01/20/19 09:27 Dose: 81 mg Atorvastatin Calcium (Lipitor -) 20 mg PO HS [facility] Last Admin: 01/19/19 22:13 Dose: 20 mg Bacitracin (Bacitracin -) 1 applic TP DAILY [facility] Last Admin: 01/20/19 09:27 Dose: 1 applic Clopidogrel Bisulfate (Plavix -) 75 mg PO AM [facility] Last Admin: 01/20/19 06:12 Dose: 75 mg Heparin Sodium (Porcine) (Heparin -) 5,000 unit SQ TID [facility] Last Admin: 01/20/19 06:12 Dose: 5,000 unit Piperacillin Sod/Tazobactam (Sod 2.25 gm/ Dextrose) 50 mls @ 100 mls/hr IVPB Q8H-IV [facility]; Protocol Last Admin: 01/20/19 09:27 Dose: 100 mls/hr Clindamycin Phosphate (Cleocin 600 Mg Premix Ivpb -) 600 mg in 50 mls @ 100 mls /hr IVPB Q8H-IV [facility]; Protocol Last Admin: 01/20/19 09:27 Dose: 100 mls/hr Vancomycin HCl (Vancomycin (Pre-Docked)) 1,000 mg in 250 mls @ 200 mls/hr IVPB DAILY@1200 [facility]; Protocol Insulin Aspart (Novolog Vial Sliding Scale -) 1 vial SQ ACHS [facility]; Protocol Last Admin: 01/20/19 10:50 Dose: 6 units Insulin Detemir (Levemir Vial) 10 units SQ BID@0700,2200 [facility] Last Admin: 01/20/19 06:11 Dose: 10 units Metoprolol Succinate (Toprol Xl -) 50 mg PO AM [facility] Last Admin: 01/20/19 06:12 Dose: 50 mg Promethazine HCl (Phenergan Injection -) 12.5 mg IVPB Q6H PRN PRN Reason: NAUSEA AND/OR VOMITING Tamsulosin HCl (Flomax -) 0.4 mg PO DAILY@0830 [facility] Last Admin: 01/20/19 09:27 Dose: 0.4 mg - Objective Vital Signs: Vital Signs Temperature 98.0 F 01/20/19 09:00 Pulse Rate 98 H 01/20/19 09:00 Respiratory Rate 20 01/20/19 09:00 Blood Pressure 116/58 L 01/20/19 09:00 O2 Sat by Pulse Oximetry (%) 95 01/20/19 09:00 Constitutional: Yes: Calm Eyes: Yes: Conjunctiva Clear HENT: Yes: Atraumatic Cardiovascular: Yes: S1, S2 Respiratory: Yes: CTA Bilaterally Gastrointestinal: Yes: Soft Genitourinary: Yes: WNL Edema: Yes Edema: LLE: 2+ Neurological: Yes: Oriented Psychiatric: Yes: Oriented Labs: CBC, BMP 01/20/19 07:00 01/20/19 07:00 Problem List - Problems (1) AMADOU (acute kidney injury) Code(s): N17.9 - ACUTE KIDNEY FAILURE, UNSPECIFIED (2) CHF (congestive heart failure) Code(s): I50.9 - HEART FAILURE, UNSPECIFIED Qualifiers: Heart failure type: unspecified Heart failure chronicity: acute Qualified Code(s): I50.9 - Heart failure, unspecified (3) CKD (chronic kidney disease) Code(s): N18.9 - CHRONIC KIDNEY DISEASE, UNSPECIFIED Qualifiers: Chronic kidney disease stage: stage 2 (mild) Qualified Code(s): N18.2 - Chronic kidney disease, stage 2 (mild) (4) HTN (hypertension) Code(s): I10 - ESSENTIAL (PRIMARY) HYPERTENSION Qualifiers: Hypertension type: essential hypertension Qualified Code(s): I10 - Essential (primary) hypertension (5) IDDM (insulin dependent diabetes mellitus) Code(s): E11.9 - TYPE 2 DIABETES MELLITUS WITHOUT COMPLICATIONS; 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 (6) Left leg pain Code(s): M79.605 - PAIN IN LEFT LEG Assessment/Plan Current Medications Generic Name Dose Route Start Last Admin Trade Name Freq PRN Reason Stop Dose Admin Acetaminophen 650 mg 01/15/19 07:10 01/20/19 09:29 Tylenol - PO 650 mg Q6H PRN Administration PAIN OR FEVER Aspirin 81 mg 01/15/19 10:00 01/20/19 09:27 Asa - PO 81 mg DAILY [facility] Administration Atorvastatin Calcium 20 mg 01/15/19 22:00 01/19/19 22:13 Lipitor - PO 20 mg HS [facility] Administration Bacitracin 1 applic 01/18/19 11:45 01/20/19 09:27 Bacitracin - TP 1 applic DAILY [facility] Administration Clopidogrel Bisulfate 75 mg 01/16/19 07:00 01/20/19 06:12 Plavix - PO 75 mg AM [facility] Administration Heparin Sodium (Porcine) 5,000 unit 01/15/19 14:00 01/20/19 06:12 Heparin - SQ 5,000 unit TID [facility] Administration Piperacillin Sod/Tazobactam 50 mls @ 100 mls/hr 01/17/19 18:00 01/20/19 09:27 Sod 2.25 gm/ Dextrose IVPB 100 mls/hr Q8H-IV [facility] Administration Protocol Clindamycin Phosphate 600 mg in 50 mls @ 100 mls/hr 01/20/19 10:00 01/20/19 09:27 Cleocin 600 Mg Premix Ivpb - IVPB 100 mls/hr Q8H-IV [facility] Administration Protocol Vancomycin HCl 1,000 mg in 250 mls @ 200 mls/hr 01/21/19 12:00 Vancomycin (Pre-Docked) IVPB DAILY@1200 [facility] Protocol Insulin Aspart 1 vial 01/15/19 11:00 01/20/19 10:50 Novolog Vial Sliding Scale - SQ 6 units ACHS [facility] Administration Protocol Insulin Detemir 10 units 01/19/19 09:00 01/20/19 06:11 Levemir Vial SQ 10 units BID@0700,2200 [facility] Administration Metoprolol Succinate 50 mg 01/16/19 07:00 01/20/19 06:12 Toprol Xl - PO 50 mg AM [facility] Administration Promethazine HCl 12.5 mg 01/15/19 16:50 Phenergan Injection - IVPB Q6H PRN NAUSEA AND/OR VOMITING Tamsulosin HCl 0.4 mg 01/16/19 08:30 01/20/19 09:27 Flomax - PO 0.4 mg DAILY@0830 [facility] Administration Impression 1. AMADOU 2. lower ext edema 3. leg pain 4. HTN 5. DM 6. CKD 7. large post void residual 8. cellulitis Plan - cont to monitor renal function - abx per ID - monitor vanco levels - cont flomax - abx for cellulitis - repeat labs in am - renal diet for now - discussed with medical team
--- NOTE | 2019-01-20 15:05 | PN ---
Teaching Attending Note Name of Resident: Jean-Paul Steve ATTENDING PHYSICIAN STATEMENT I saw and evaluated the patient. I reviewed the resident's note and discussed the case with the resident. I agree with the resident's findings and plan as documented. 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: AOX3 non focal LABS: CBC, BMP 01/20/19 07:00 01/20/19 07:00 Active Medications Acetaminophen (Tylenol -) 650 mg PO Q6H PRN PRN Reason: PAIN OR FEVER Last Admin: 01/20/19 09:29 Dose: 650 mg Aspirin (Asa -) 81 mg PO DAILY [facility] Last Admin: 01/20/19 09:27 Dose: 81 mg Atorvastatin Calcium (Lipitor -) 20 mg PO HS [facility] Last Admin: 01/19/19 22:13 Dose: 20 mg Bacitracin (Bacitracin -) 1 applic TP DAILY [facility] Last Admin: 01/20/19 09:27 Dose: 1 applic Clopidogrel Bisulfate (Plavix -) 75 mg PO AM [facility] Last Admin: 01/20/19 06:12 Dose: 75 mg Heparin Sodium (Porcine) (Heparin -) 5,000 unit SQ TID [facility] Last Admin: 01/20/19 13:51 Dose: 5,000 unit Piperacillin Sod/Tazobactam (Sod 2.25 gm/ Dextrose) 50 mls @ 100 mls/hr IVPB Q8H-IV [facility]; Protocol Last Admin: 01/20/19 09:27 Dose: 100 mls/hr Clindamycin Phosphate (Cleocin 600 Mg Premix Ivpb -) 600 mg in 50 mls @ 100 mls /hr IVPB Q8H-IV [facility]; Protocol Last Admin: 01/20/19 09:27 Dose: 100 mls/hr Vancomycin HCl (Vancomycin (Pre-Docked)) 1,000 mg in 250 mls @ 200 mls/hr IVPB DAILY@1200 [facility]; Protocol Insulin Aspart (Novolog Vial Sliding Scale -) 1 vial SQ ACHS [facility]; Protocol Last Admin: 01/20/19 10:50 Dose: 6 units Insulin Detemir (Levemir Vial) 12 units SQ BID@0700,2200 [facility] Metoprolol Succinate (Toprol Xl -) 50 mg PO AM [facility] Last Admin: 01/20/19 06:12 Dose: 50 mg Promethazine HCl (Phenergan Injection -) 12.5 mg IVPB Q6H PRN PRN Reason: NAUSEA AND/OR VOMITING Tamsulosin HCl (Flomax -) 0.4 mg PO DAILY@0830 [facility] Last Admin: 01/20/19 09:27 Dose: 0.4 mg ASSESSMENT AND PLAN:59 yrs old man with uncontrolled T2DM, HTN< dyslipedemia, PAD, CKD stage 3 admitted with worsening swelling Left LE with Cellulitis LE doppler CT scan are -ve for DVT or bascess on IV Zosyn and Vanco evaluated by ID , Nephrology and Vascular. Impression; Left LE Cellulites. Problem List - Problems (1) Left arm cellulitis Assessment/Plan: worsening symptoms with edema, elevated WBC on IV Vanco, zosyn wound culture f =grew MRSA Vanco level is sub therapeutic ID added Clindamycine, elevation, IV abx close observation for compartment syndrome. Code(s): L03.114 - CELLULITIS OF LEFT UPPER LIMB (2) T2DM (type 2 diabetes mellitus) Assessment/Plan: on Insulin F/U accucheck increse leimir to 12 units BID with correction dose insulin. Code(s): E11.9 - TYPE 2 DIABETES MELLITUS WITHOUT COMPLICATIONS Qualifiers: Chronic kidney disease stage: stage 3 (moderate) (3) CKD (chronic kidney disease) Assessment/Plan: Due rto Diabetic nephropathy F/U BMP Code(s): N18.9 - CHRONIC KIDNEY DISEASE, UNSPECIFIED Qualifiers: Chronic kidney disease stage: stage 3 (moderate) Qualified Code(s): N18.3 - Chronic kidney disease, stage 3 (moderate) (4) HTN (hypertension) Assessment/Plan: Well controlled cont current meds Code(s): I10 - ESSENTIAL (PRIMARY) HYPERTENSION Qualifiers: Hypertension type: essential hypertension Qualified Code(s): I10 - Essential (primary) hypertension (5) Malnutrition Assessment/Plan: Low albumin F/U nutrition consult. Code(s): E46 - UNSPECIFIED PROTEIN-CALORIE MALNUTRITION (6) CHF (congestive heart failure) Assessment/Plan: no acute symptoms. Code(s): I50.9 - HEART FAILURE, UNSPECIFIED Qualifiers: Heart failure type: unspecified Qualified Code(s): I50.9 - Heart failure, unspecified
[2019-01-20] MEDS: ATORVASTATIN CA 20 MG TABLET (FP) PO SCH (23:13)
[2019-01-21] MEDS ORDERED: DEXTROSE 5%-WATER - 50 ML IVPB ONE ×3 (01:48→17:42)
[2019-01-21] MEDS ORDERED: PIPERACILLIN/TAZOBACTAM 2.25 GM VIAL IVPB ONE ×3 (01:48→17:42)
[2019-01-21] MEDS: ACETAMINOPHEN 325 MG TABLET (FP) PO PRN ×2 (01:52→17:26)
[2019-01-21] MEDS: CLINDAMYCIN 600MG PREMIX IVPB 600 MG/50 ML BAG IVPB SCH ×3 (01:52→17:43)
[2019-01-21] MEDS: PIPERACILLIN/TAZOB 2.25 GM 2.25 GM in DEXTROSE 5%-WATER - 50 ML IVPB SCH ×3 (02:18→18:05)
[2019-01-21] MEDS: CLOPIDOGREL BISULFATE 75 MG TABLET (FP) PO SCH (06:38)
[2019-01-21] MEDS: INSULIN SLIDING SCALE (NOVOLOG) 1 VIAL SQ SCH ×4 (06:38→21:39)
[2019-01-21] MEDS: HEPARIN NA (PORCINE) 5,000 UNITS/ML 1ML VIAL SQ SCH ×3 (06:38→21:38)
[2019-01-21] MEDS: INSULIN (LEVEMIR) 100 UNITS/ML UNITS SQ SCH ×2 (06:39→21:38)
--- NOTE | 2019-01-21 08:24 | PN ---
Teaching Attending Note Name of Resident: Jean-Paul Steve ATTENDING PHYSICIAN STATEMENT I saw and evaluated the patient. I reviewed the resident's note and discussed the case with the resident. I agree with the resident's findings and plan as documented. 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 LABS: Active Medications Acetaminophen (Tylenol -) 650 mg PO Q6H PRN PRN Reason: PAIN OR FEVER Last Admin: 01/20/19 09:29 Dose: 650 mg Aspirin (Asa -) 81 mg PO DAILY [facility] Last Admin: 01/20/19 09:27 Dose: 81 mg Atorvastatin Calcium (Lipitor -) 20 mg PO HS [facility] Last Admin: 01/19/19 22:13 Dose: 20 mg Bacitracin (Bacitracin -) 1 applic TP DAILY [facility] Last Admin: 01/20/19 09:27 Dose: 1 applic Clopidogrel Bisulfate (Plavix -) 75 mg PO AM [facility] Last Admin: 01/20/19 06:12 Dose: 75 mg Heparin Sodium (Porcine) (Heparin -) 5,000 unit SQ TID [facility] Last Admin: 01/20/19 13:51 Dose: 5,000 unit Piperacillin Sod/Tazobactam (Sod 2.25 gm/ Dextrose) 50 mls @ 100 mls/hr IVPB Q8H-IV [facility]; Protocol Last Admin: 01/20/19 09:27 Dose: 100 mls/hr Clindamycin Phosphate (Cleocin 600 Mg Premix Ivpb -) 600 mg in 50 mls @ 100 mls /hr IVPB Q8H-IV [facility]; Protocol Last Admin: 01/20/19 09:27 Dose: 100 mls/hr Vancomycin HCl (Vancomycin (Pre-Docked)) 1,000 mg in 250 mls @ 200 mls/hr IVPB DAILY@1200 [facility]; Protocol Insulin Aspart (Novolog Vial Sliding Scale -) 1 vial SQ ACHS [facility]; Protocol Last Admin: 01/20/19 10:50 Dose: 6 units Insulin Detemir (Levemir Vial) 12 units SQ BID@0700,2200 [facility] Metoprolol Succinate (Toprol Xl -) 50 mg PO AM [facility] Last Admin: 01/20/19 06:12 Dose: 50 mg Promethazine HCl (Phenergan Injection -) 12.5 mg IVPB Q6H PRN PRN Reason: NAUSEA AND/OR VOMITING Tamsulosin HCl (Flomax -) 0.4 mg PO DAILY@0830 [facility] Last Admin: 01/20/19 09:27 Dose: 0.4 mg ASSESSMENT AND PLAN:59 yrs old man with uncontrolled T2DM, HTN< dyslipedemia, PAD, CKD stage 3 admitted with worsening swelling Left LE with Cellulitis LE doppler CT scan are -ve for DVT or bascess on IV Zosyn and Vanco evaluated by ID , Nephrology and Vascular. Problem List - Problems (1) T2DM (type 2 diabetes mellitus) Assessment/Plan: on Insulin F/U accucheck increse leimir to 12 units BID with correction dose insulin. Code(s): E11.9 - TYPE 2 DIABETES MELLITUS WITHOUT COMPLICATIONS Qualifiers: Chronic kidney disease stage: stage 3 (moderate) (2) CKD (chronic kidney disease) Assessment/Plan: Due rto Diabetic nephropathy F/U BMP Code(s): N18.9 - CHRONIC KIDNEY DISEASE, UNSPECIFIED Qualifiers: Chronic kidney disease stage: stage 3 (moderate) Qualified Code(s): N18.3 - Chronic kidney disease, stage 3 (moderate) (3) HTN (hypertension) Assessment/Plan: Well controlled cont current meds Code(s): I10 - ESSENTIAL (PRIMARY) HYPERTENSION Qualifiers: Hypertension type: essential hypertension Qualified Code(s): I10 - Essential (primary) hypertension (4) Malnutrition Assessment/Plan: Low albumin F/U nutrition consult. Code(s): E46 - UNSPECIFIED PROTEIN-CALORIE MALNUTRITION (5) CHF (congestive heart failure) Assessment/Plan: no acute symptoms. Code(s): I50.9 - HEART FAILURE, UNSPECIFIED Qualifiers: Heart failure type: unspecified Qualified Code(s): I50.9 - Heart failure, unspecified (6) Cellulitis of left lower extremity Assessment/Plan: Low grade fever minimal improvement TWBC 22 K patient is on IV avncomycine, Clindamycine and Zosyn Culture Grew MRSA Code(s): L03.116 - CELLULITIS OF LEFT LOWER LIMB
[2019-01-21] MEDS: TAMSULOSIN HCL 0.4 MG CAP PO SCH (08:40)
[2019-01-21] MEDS: BACITRACIN 15 GM TUBE TOPICAL OINTMENT TP SCH (09:16)
[2019-01-21] MEDS: ASPIRIN 81 MG CHEWABLE TABLETS PO SCH (09:16)
--- NOTE | 2019-01-21 10:38 | PN ---
Progress Note, Physician History of Present Illness: continues to spike fever wbc increasing leg still swollen and painful - Current Medication List Current Medications: Active Medications Acetaminophen (Tylenol -) 650 mg PO Q6H PRN PRN Reason: PAIN OR FEVER Last Admin: 01/21/19 01:52 Dose: 650 mg Aspirin (Asa -) 81 mg PO DAILY [facility] Last Admin: 01/21/19 09:16 Dose: 81 mg Atorvastatin Calcium (Lipitor -) 20 mg PO HS [facility] Last Admin: 01/20/19 23:13 Dose: 20 mg Bacitracin (Bacitracin -) 1 applic TP DAILY [facility] Last Admin: 01/21/19 09:16 Dose: 1 applic Clopidogrel Bisulfate (Plavix -) 75 mg PO AM [facility] Last Admin: 01/21/19 06:38 Dose: 75 mg Heparin Sodium (Porcine) (Heparin -) 5,000 unit SQ TID [facility] Last Admin: 01/21/19 06:38 Dose: 5,000 unit Piperacillin Sod/Tazobactam (Sod 2.25 gm/ Dextrose) 50 mls @ 100 mls/hr IVPB Q8H-IV [facility]; Protocol Last Admin: 01/21/19 09:50 Dose: 100 mls/hr Clindamycin Phosphate (Cleocin 600 Mg Premix Ivpb -) 600 mg in 50 mls @ 100 mls /hr IVPB Q8H-IV [facility]; Protocol Last Admin: 01/21/19 09:16 Dose: 100 mls/hr Vancomycin HCl (Vancomycin (Pre-Docked)) 1,000 mg in 250 mls @ 200 mls/hr IVPB DAILY@1200 [facility]; Protocol Insulin Aspart (Novolog Vial Sliding Scale -) 1 vial SQ ACHS [facility]; Protocol Last Admin: 01/21/19 06:38 Dose: 4 units Insulin Detemir (Levemir Vial) 12 units SQ BID@0700,2200 [facility] Last Admin: 01/21/19 06:39 Dose: 12 units Metoprolol Succinate (Toprol Xl -) 50 mg PO AM [facility] Last Admin: 01/21/19 06:38 Dose: 50 mg Promethazine HCl (Phenergan Injection -) 12.5 mg IVPB Q6H PRN PRN Reason: NAUSEA AND/OR VOMITING Tamsulosin HCl (Flomax -) 0.4 mg PO DAILY@0830 [facility] Last Admin: 01/21/19 08:40 Dose: 0.4 mg - Objective Vital Signs: Vital Signs Temperature 100.1 F H 01/21/19 09:00 Pulse Rate 94 H 01/21/19 09:00 Respiratory Rate 20 01/21/19 09:00 Blood Pressure 138/79 01/21/19 09:00 O2 Sat by Pulse Oximetry (%) 95 01/20/19 21:00 Constitutional: Yes: Calm, Mild Distress Cardiovascular: Yes: Regular Rate and Rhythm Respiratory: Yes: Regular, CTA Bilaterally Gastrointestinal: Yes: Normal Bowel Sounds, Soft Musculoskeletal: Yes: WNL Extremities: Yes: Erythema (of the calf), Other Wound/Incision: Yes: Dressing Dry and Intact Neurological: Yes: Alert, Oriented Psychiatric: Yes: Alert, Oriented Labs: CBC, BMP 01/20/19 07:00 01/20/19 07:00 Assessment/Plan Problem List - Problems (1) Left leg pain Code(s): M79.605 - PAIN IN LEFT LEG (2) AMADOU (acute kidney injury) Code(s): N17.9 - ACUTE KIDNEY FAILURE, UNSPECIFIED (3) CKD (chronic kidney disease) Code(s): N18.9 - CHRONIC KIDNEY DISEASE, UNSPECIFIED Qualifiers: Chronic kidney disease stage: stage 2 (mild) Qualified Code(s): N18.2 - Chronic kidney disease, stage 2 (mild) (4) HTN (hypertension) Code(s): I10 - ESSENTIAL (PRIMARY) HYPERTENSION Qualifiers: Hypertension type: essential hypertension Qualified Code(s): I10 - Essential (primary) hypertension (5) IDDM (insulin dependent diabetes mellitus) Code(s): E11.9 - TYPE 2 DIABETES MELLITUS WITHOUT COMPLICATIONS; Z79.4 - [employer] (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 OF INSULIN 6 leukocytosis plan continue abx monitor wbc closely will need repeat imaging vascular rest as per the team
[2019-01-21] MEDS ORDERED: INSULIN (NOVOLOG) ASPART 100 UNITS/ML 10ML VIAL ONE (11:44)
--- NOTE | 2019-01-21 13:27 | PN ---
Physical Exam: SUBJECTIVE: Patient seen and examined leg is same wbc still rising pt is febrile OBJECTIVE: Vital Signs Period Temp Pulse Resp BP Sys/Cano Pulse Ox Last 24 Hr 99.3 F-102.9 F 94-107 20-21 112-153/58-85 95 GENERAL: The patient is awake, alert, and fully oriented, in no acute distress. HEAD: Normal with no signs of trauma. EYES: PERRL, extraocular movements intact, sclera anicteric, conjunctiva clear. ENT: dry mucous membranes. NECK: Trachea midline, full range of motion, supple. LUNGS: Breath sounds equal, clear to auscultation bilaterally, no wheezes, no crackles, no accessory muscle use. HEART: Regular rate and rhythm, S1, S2 ABDOMEN: Soft, nontender, nondistended, normoactive bowel sounds, no guarding, no rebound, EXTREMITIES: left leg edema, excoriation of skin, warm to touch, tender, gauze present PSYCH: Normal mood, SKIN: Warm, dry, Laboratory Results - last 24 hr 01/20/19 01/20/19 01/21/19 16:24 23:12 05:33 POC Glucometer 301 213 206 Random Vancomycin 01/21/19 01/21/19 07:30 11:39 POC Glucometer 221 Random Vancomycin 10.9 L Active Medications Generic Name Dose Route Start Last Admin Trade Name Freq PRN Reason Stop Dose Admin Acetaminophen 650 mg 01/15/19 07:10 01/21/19 01:52 Tylenol - PO 650 mg Q6H PRN Administration PAIN OR FEVER Aspirin 81 mg 01/15/19 10:00 01/21/19 09:16 Asa - PO 81 mg DAILY [facility] Administration Atorvastatin Calcium 20 mg 01/15/19 22:00 01/20/19 23:13 Lipitor - PO 20 mg HS [facility] Administration Bacitracin 1 applic 01/18/19 11:45 01/21/19 09:16 Bacitracin - TP 1 applic DAILY [facility] Administration Clopidogrel Bisulfate 75 mg 01/16/19 07:00 01/21/19 06:38 Plavix - PO 75 mg AM [facility] Administration Heparin Sodium (Porcine) 5,000 unit 01/15/19 14:00 01/21/19 06:38 Heparin - SQ 5,000 unit TID [facility] Administration Piperacillin Sod/Tazobactam 50 mls @ 100 mls/hr 01/17/19 18:00 01/21/19 09:50 Sod 2.25 gm/ Dextrose IVPB 100 mls/hr Q8H-IV [facility] Administration Protocol Clindamycin Phosphate 600 mg in 50 mls @ 100 mls/hr 01/20/19 10:00 01/21/19 09:16 Cleocin 600 Mg Premix Ivpb - IVPB 100 mls/hr Q8H-IV [facility] Administration Protocol Vancomycin HCl 1,000 mg in 250 mls @ 200 mls/hr 01/21/19 12:00 Vancomycin (Pre-Docked) IVPB DAILY@1200 [facility] Protocol Insulin Aspart 1 vial 01/15/19 11:00 01/21/19 11:46 Novolog Vial Sliding Scale - SQ 4 units ACHS [facility] Administration Protocol Insulin Detemir 12 units 01/20/19 22:00 01/21/19 06:39 Levemir Vial SQ 12 units BID@0700,2200 [facility] Administration Metoprolol Succinate 50 mg 01/16/19 07:00 01/21/19 06:38 Toprol Xl - PO 50 mg AM [facility] Administration Promethazine HCl 12.5 mg 01/15/19 16:50 Phenergan Injection - IVPB Q6H PRN NAUSEA AND/OR VOMITING Tamsulosin HCl 0.4 mg 01/16/19 08:30 01/21/19 08:40 Flomax - PO 0.4 mg DAILY@0830 [facility] Administration ASSESSMENT/PLAN:Patient is a 59 year old male with past medical history of IDDM , HTN, HLD, PAD, CAD s/p PCI, CKD, presented to the ED with 1 day history of left lower extremity pain. # Cellulitis left leg with on vanco, zosyna and clinda leg elevation iD and vascular surgery on case pt is still febrile. wound culture growing mrsa #Elevated BNP -BNP 4724, likely 2/2 CKD -No SOB, No evidence of congestion on CXR, # tray on CKD base line cr 1.43 cr 2.6 getting better Lee cath in situ pt also states that he use to eat naproxen twice a day and is taking it from a long time on flomax #, IDDM BGM sliding scale sugar running oin 250 levemir 12 bid #HTN toprol xl 50 daily #FEN -Not on any standing fluids -Routine bmp monitoring -Diabetic/Sodium controlled diet #Prophylaxis -Heparin 5000units sq tid #Disposition -full code -med surg Visit type - Emergency Visit Emergency Visit: Yes ED Registration Date: 01/13/19 Care time: The patient presented to the Emergency Department on the above date and was hospitalized for further evaluation of their emergent condition. - New Patient This patient is new to me today: No - Critical Care Critical Care patient: No
--- NOTE | 2019-01-21 14:29 | PROC ---
Central Line Insertion Indication: Poor Venous Access Risks and Benefits Explained: Yes Consent on Chart: Yes Central Line: Triple Lumen Catheter Anesthesia: 1% Lidocaine Sterile Technique: Yes Ultrasound Guided Assistance: Yes Position: Right Internal Jugular Post Insertion: Yes: Bilateral Breath Sounds, Chest X-Ray Ordered Sterile Dressing Applied: Yes
[2019-01-21 15:54] LABS: BASO % 0.2 % (0-2.0); EOS % 0.7 % (0-4.5); HEMATOCRIT 25.7 % (35.4-49); HEMOGLOBIN 8.5 GM/dL (11.7-16.9); LYMPH % 4.6 % (8-40); MCH 27.6 pg (25.7-33.7); MEAN CELL VOLUME 83.8 fl (80-96); MEAN PLT VOLUME 8.5 fl (7.5-11.1); MONO % 4.9 % (3.8-10.2); NEUT % 89.6 % (42.8-82.8); PLATELET COUNT 201 K/MM3 (134-434); RBC 3.06 M/mm3 (4.00-5.60); RDW 14.9 % (11.9-15.9); WHITE BLOOD COUNT 23.3 K/mm3 (4.0-10.0)
--- NOTE | 2019-01-21 16:28 | PROC ---
Central Line Insertion Indication: Poor Venous Access Risks and Benefits Explained: Yes Consent on Chart: Yes Central Line: Triple Lumen Catheter Anesthesia: 1% Lidocaine Sterile Technique: Yes Ultrasound Guided Assistance: Yes Position: Right Internal Jugular Post Insertion: Yes: Chest X-Ray Ordered Sterile Dressing Applied: Yes Remarks: Prior XRay reviewed and Catheter was not in ideal position. Catheter was removed and new R IJ Line was placed.
--- NOTE | 2019-01-21 16:43 | PN ---
Progress Note, Physician History of Present Illness: Pt seen and examined at bedside. He does not feel much different than yesterday. He denies dysuria. - Current Medication List Current Medications: Active Medications Acetaminophen (Tylenol -) 650 mg PO Q6H PRN PRN Reason: PAIN OR FEVER Last Admin: 01/21/19 01:52 Dose: 650 mg Aspirin (Asa -) 81 mg PO DAILY [facility] Last Admin: 01/21/19 09:16 Dose: 81 mg Atorvastatin Calcium (Lipitor -) 20 mg PO HS [facility] Last Admin: 01/20/19 23:13 Dose: 20 mg Bacitracin (Bacitracin -) 1 applic TP DAILY [facility] Last Admin: 01/21/19 09:16 Dose: 1 applic Clopidogrel Bisulfate (Plavix -) 75 mg PO AM [facility] Last Admin: 01/21/19 06:38 Dose: 75 mg Heparin Sodium (Porcine) (Heparin -) 5,000 unit SQ TID [facility] Last Admin: 01/21/19 15:34 Dose: Not Given Piperacillin Sod/Tazobactam (Sod 2.25 gm/ Dextrose) 50 mls @ 100 mls/hr IVPB Q8H-IV [facility]; Protocol Last Admin: 01/21/19 09:50 Dose: 100 mls/hr Clindamycin Phosphate (Cleocin 600 Mg Premix Ivpb -) 600 mg in 50 mls @ 100 mls /hr IVPB Q8H-IV [facility]; Protocol Last Admin: 01/21/19 09:16 Dose: 100 mls/hr Vancomycin HCl (Vancomycin (Pre-Docked)) 1,000 mg in 250 mls @ 200 mls/hr IVPB DAILY@1200 [facility]; Protocol Insulin Aspart (Novolog Vial Sliding Scale -) 1 vial SQ ACHS [facility]; Protocol Last Admin: 01/21/19 11:46 Dose: 4 units Insulin Detemir (Levemir Vial) 12 units SQ BID@0700,2200 [facility] Last Admin: 01/21/19 06:39 Dose: 12 units Metoprolol Succinate (Toprol Xl -) 50 mg PO AM [facility] Last Admin: 01/21/19 06:38 Dose: 50 mg Promethazine HCl (Phenergan Injection -) 12.5 mg IVPB Q6H PRN PRN Reason: NAUSEA AND/OR VOMITING Tamsulosin HCl (Flomax -) 0.4 mg PO DAILY@0830 [facility] Last Admin: 01/21/19 08:40 Dose: 0.4 mg - Objective Vital Signs: Vital Signs Temperature 102.8 F H 01/21/19 14:00 Pulse Rate 94 H 01/21/19 09:00 Respiratory Rate 20 01/21/19 09:00 Blood Pressure 138/79 01/21/19 09:00 O2 Sat by Pulse Oximetry (%) 95 01/20/19 21:00 Constitutional: Yes: Calm Eyes: Yes: Conjunctiva Clear HENT: Yes: Atraumatic Cardiovascular: Yes: S1, S2 Respiratory: Yes: CTA Bilaterally Gastrointestinal: Yes: Soft Genitourinary: Yes: Lee Present Edema: Yes Edema: LLE: 2+, RLE: Trace Neurological: Yes: Oriented Psychiatric: Yes: Oriented Labs: CBC, BMP 01/21/19 15:20 01/20/19 07:00 Problem List - Problems (1) AMADOU (acute kidney injury) Code(s): N17.9 - ACUTE KIDNEY FAILURE, UNSPECIFIED (2) CHF (congestive heart failure) Code(s): I50.9 - HEART FAILURE, UNSPECIFIED Qualifiers: Heart failure type: unspecified Qualified Code(s): I50.9 - Heart failure, unspecified (3) CKD (chronic kidney disease) Code(s): N18.9 - CHRONIC KIDNEY DISEASE, UNSPECIFIED Qualifiers: Chronic kidney disease stage: stage 3 (moderate) Qualified Code(s): N18.3 - Chronic kidney disease, stage 3 (moderate) (4) HTN (hypertension) Code(s): I10 - ESSENTIAL (PRIMARY) HYPERTENSION Qualifiers: Hypertension type: essential hypertension Qualified Code(s): I10 - Essential (primary) hypertension (5) IDDM (insulin dependent diabetes mellitus) Code(s): E11.9 - TYPE 2 DIABETES MELLITUS WITHOUT COMPLICATIONS; Z79.4 - [facility] (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 OF INSULIN (6) Left leg pain Code(s): M79.605 - PAIN IN LEFT LEG Assessment/Plan Current Medications Generic Name Dose Route Start Last Admin Trade Name Freq PRN Reason Stop Dose Admin Acetaminophen 650 mg 01/15/19 07:10 01/21/19 01:52 Tylenol - PO 650 mg Q6H PRN Administration PAIN OR FEVER Aspirin 81 mg 01/15/19 10:00 01/21/19 09:16 Asa - PO 81 mg DAILY [facility] Administration Atorvastatin Calcium 20 mg 01/15/19 22:00 01/20/19 23:13 Lipitor - PO 20 mg HS [facility] Administration Bacitracin 1 applic 01/18/19 11:45 01/21/19 09:16 Bacitracin - TP 1 applic DAILY [facility] Administration Clopidogrel Bisulfate 75 mg 01/16/19 07:00 01/21/19 06:38 Plavix - PO 75 mg AM [facility] Administration Heparin Sodium (Porcine) 5,000 unit 01/15/19 14:00 01/21/19 15:34 Heparin - SQ Not Given TID [facility] Piperacillin Sod/Tazobactam 50 mls @ 100 mls/hr 01/17/19 18:00 01/21/19 09:50 Sod 2.25 gm/ Dextrose IVPB 100 mls/hr Q8H-IV [facility] Administration Protocol Clindamycin Phosphate 600 mg in 50 mls @ 100 mls/hr 01/20/19 10:00 01/21/19 09:16 Cleocin 600 Mg Premix Ivpb - IVPB 100 mls/hr Q8H-IV [facility] Administration Protocol Vancomycin HCl 1,000 mg in 250 mls @ 200 mls/hr 01/21/19 12:00 Vancomycin (Pre-Docked) IVPB DAILY@1200 [facility] Protocol Insulin Aspart 1 vial 01/15/19 11:00 01/21/19 11:46 Novolog Vial Sliding Scale - SQ 4 units ACHS [facility] Administration Protocol Insulin Detemir 12 units 01/20/19 22:00 01/21/19 06:39 Levemir Vial SQ 12 units BID@0700,2200 [facility] Administration Metoprolol Succinate 50 mg 01/16/19 07:00 01/21/19 06:38 Toprol Xl - PO 50 mg AM [facility] Administration Promethazine HCl 12.5 mg 01/15/19 16:50 Phenergan Injection - IVPB Q6H PRN NAUSEA AND/OR VOMITING Tamsulosin HCl 0.4 mg 01/16/19 08:30 01/21/19 08:40 Flomax - PO 0.4 mg DAILY@0830 [facility] Administration Impression 1. AMADOU 2. lower ext edema 3. leg pain 4. HTN 5. DM 6. CKD 7. large post void residual 8. cellulitis 9. sepsis Plan - check bmp - abx per ID - monitor vanco levels - cont flomax - abx for cellulitis - renal diet for now
[2019-01-21 16:59] LABS: PLATELET ESTIMATE ADEQUATE
[2019-01-21] MEDS: VANCOMYCIN 1 GRAM (PRE-DOCKED) 1,000 MG/250 ML BAG IVPB SCH (18:53)
[2019-01-21] MEDS: ATORVASTATIN CA 20 MG TABLET (FP) PO SCH (21:38)
[2019-01-22] MEDS ORDERED: PIPERACILLIN/TAZOBACTAM 2.25 GM VIAL IVPB ONE ×3 (00:34→18:23)
[2019-01-22] MEDS ORDERED: DEXTROSE 5%-WATER - 50 ML IVPB ONE ×3 (00:34→18:23)
[2019-01-22] MEDS: ACETAMINOPHEN 325 MG TABLET (FP) PO PRN ×3 (01:48→16:40)
[2019-01-22] MEDS: CLINDAMYCIN 600MG PREMIX IVPB 600 MG/50 ML BAG IVPB SCH ×3 (02:00→18:33)
[2019-01-22] MEDS: PIPERACILLIN/TAZOB 2.25 GM 2.25 GM in DEXTROSE 5%-WATER - 50 ML IVPB SCH ×3 (02:40→18:33)
[2019-01-22] MEDS: HEPARIN NA (PORCINE) 5,000 UNITS/ML 1ML VIAL SQ SCH ×3 (05:42→21:20)
[2019-01-22] MEDS: INSULIN (LEVEMIR) 100 UNITS/ML UNITS SQ SCH ×2 (06:34→21:20)
[2019-01-22] MEDS: INSULIN SLIDING SCALE (NOVOLOG) 1 VIAL SQ SCH ×4 (06:34→21:21)
[2019-01-22] MEDS ORDERED: INSULIN (NOVOLOG) ASPART 100 UNITS/ML 10ML VIAL ONE (06:43)
[2019-01-22] MEDS: CLOPIDOGREL BISULFATE 75 MG TABLET (FP) PO SCH (06:50)
[2019-01-22 08:01] LABS: BASO % 0.4 % (0-2.0); EOS % 0.7 % (0-4.5); HEMATOCRIT 21.2 % (35.4-49); HEMOGLOBIN 7.2 GM/dL (11.7-16.9); LYMPH % 5.8 % (8-40); MCH 28.2 pg (25.7-33.7); MCHC 33.7 g/dl (32.0-35.9); MEAN CELL VOLUME 83.7 fl (80-96); MEAN PLT VOLUME 8.3 fl (7.5-11.1); MONO % 5.1 % (3.8-10.2); PLATELET COUNT 214 K/MM3 (134-434); RBC 2.54 M/mm3 (4.00-5.60); RDW 14.9 % (11.9-15.9)
[2019-01-22 08:47] LABS: ALBUMIN 1.2 g/dl (3.4-5.0); ALK PHOS 114 U/L (45-117); ANION GAP 9 MMOL/L (8-16); BILIRUBIN,TOTAL 0.5 mg/dL (0.2-1); BLOOD UREA NITROGEN 46 mg/dL (7-18); CALCIUM 7.3 mg/dL (8.5-10.1); CHLORIDE 104 mmol/L (98-107); CO2 23 mmol/L (21-32); CREATININE 2.4 mg/dL (0.55-1.3); GLUCOSE,RANDOM 140 mg/dL (74-106); MAGNESIUM 2.2 mg/dL (1.8-2.4); POTASSIUM 4.1 mmol/L (3.5-5.1); SGOT/AST 24 U/L (15-37); SGPT/ALT 14 U/L (13-61); SODIUM 136 mmol/L (136-145); TOT PROT 5.8 g/dl (6.4-8.2)
--- NOTE | 2019-01-22 09:19 | PN ---
Teaching Attending Note Name of Resident: Jean-Paul Steve ATTENDING PHYSICIAN STATEMENT I saw and evaluated the patient. I reviewed the resident's note and discussed the case with the resident. I agree with the resident's findings and plan as documented. SUBJECTIVE: Patient feels improved remained afebrile OBJECTIVE: Vital Signs Temperature 98.7 F 01/22/19 05:56 Pulse Rate 88 01/22/19 05:56 Respiratory Rate 20 01/22/19 05:56 Blood Pressure 137/71 01/22/19 05:56 O2 Sat by Pulse Oximetry (%) 95 01/20/19 21:00 Elderly man comfortable not in distress HEENT: Mm moist, no anemia, PERRLA, EOMI NECK: Rt IJ at place Mm moist no anemia, PERRLA EOMI CHST: CTA B/L CVS: S1S2 R no m/g/r ABD: No distention, non tender Bs + EXT: Rt LE toes amputation Left LE cellulitis improving no oozing of fluid, sensation and pulsations are present. 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 LABS: CBC, BMP 01/22/19 06:30 01/22/19 06:30 Active Medications Acetaminophen (Tylenol -) 650 mg PO Q6H PRN PRN Reason: PAIN OR FEVER Last Admin: 01/20/19 09:29 Dose: 650 mg Aspirin (Asa -) 81 mg PO DAILY [facility] Last Admin: 01/20/19 09:27 Dose: 81 mg Atorvastatin Calcium (Lipitor -) 20 mg PO HS [facility] Last Admin: 01/19/19 22:13 Dose: 20 mg Bacitracin (Bacitracin -) 1 applic TP DAILY [facility] Last Admin: 01/20/19 09:27 Dose: 1 applic Clopidogrel Bisulfate (Plavix -) 75 mg PO AM [facility] Last Admin: 01/20/19 06:12 Dose: 75 mg Heparin Sodium (Porcine) (Heparin -) 5,000 unit SQ TID [facility] Last Admin: 01/20/19 13:51 Dose: 5,000 unit Piperacillin Sod/Tazobactam (Sod 2.25 gm/ Dextrose) 50 mls @ 100 mls/hr IVPB Q8H-IV [facility]; Protocol Last Admin: 01/20/19 09:27 Dose: 100 mls/hr Clindamycin Phosphate (Cleocin 600 Mg Premix Ivpb -) 600 mg in 50 mls @ 100 mls /hr IVPB Q8H-IV [facility]; Protocol Last Admin: 01/20/19 09:27 Dose: 100 mls/hr Vancomycin HCl (Vancomycin (Pre-Docked)) 1,000 mg in 250 mls @ 200 mls/hr IVPB DAILY@1200 [facility]; Protocol Insulin Aspart (Novolog Vial Sliding Scale -) 1 vial SQ ACHS [facility]; Protocol Last Admin: 01/20/19 10:50 Dose: 6 units Insulin Detemir (Levemir Vial) 12 units SQ BID@0700,2200 [facility] Metoprolol Succinate (Toprol Xl -) 50 mg PO AM [facility] Last Admin: 01/20/19 06:12 Dose: 50 mg Promethazine HCl (Phenergan Injection -) 12.5 mg IVPB Q6H PRN PRN Reason: NAUSEA AND/OR VOMITING Tamsulosin HCl (Flomax -) 0.4 mg PO DAILY@0830 [facility] Last Admin: 01/20/19 09:27 Dose: 0.4 mg ASSESSMENT AND PLAN:59 yrs old man with uncontrolled T2DM, HTN< dyslipedemia, PAD, CKD stage 3 admitted with worsening swelling Left LE with Cellulitis LE doppler CT scan are -ve for DVT or abscess improving , clinical signs and TWBC is stable. Plan; cont current abx Vanco trough F/U with nutrition consult add Pre albumin. Problem List - Problems (1) T2DM (type 2 diabetes mellitus) Assessment/Plan: on Insulin F/U accucheck increse leimir to 15 units BID with correction dose insulin. Code(s): E11.9 - TYPE 2 DIABETES MELLITUS WITHOUT COMPLICATIONS Qualifiers: Chronic kidney disease stage: stage 3 (moderate) (2) CKD (chronic kidney disease) Assessment/Plan: Due to Diabetic nephropathy F/U BMP Code(s): N18.9 - CHRONIC KIDNEY DISEASE, UNSPECIFIED Qualifiers: Chronic kidney disease stage: stage 3 (moderate) Qualified Code(s): N18.3 - Chronic kidney disease, stage 3 (moderate) (3) HTN (hypertension) Assessment/Plan: Well controlled cont current meds Code(s): I10 - ESSENTIAL (PRIMARY) HYPERTENSION Qualifiers: Hypertension type: essential hypertension Qualified Code(s): I10 - Essential (primary) hypertension (4) Malnutrition Assessment/Plan: Low albumin F/U nutrition consult. add on Pre albumin level Code(s): E46 - UNSPECIFIED PROTEIN-CALORIE MALNUTRITION (5) CHF (congestive heart failure) Assessment/Plan: no acute symptoms. Code(s): I50.9 - HEART FAILURE, UNSPECIFIED Qualifiers: Heart failure type: unspecified Qualified Code(s): I50.9 - Heart failure, unspecified (6) Cellulitis of left lower extremity Assessment/Plan: Low grade fever minimal improvement TWBC 21 K patient is on IV vncomycine, Clindamycine and Zosyn Culture Grew MRSA Vanco trough 16.5 Code(s): L03.116 - CELLULITIS OF LEFT LOWER LIMB
[2019-01-22 10:02] LABS: ANISOCYTOSIS 1+; MACROCYTOSIS 0; PLATELET ESTIMATE NORMAL
[2019-01-22] MEDS: ASPIRIN 81 MG CHEWABLE TABLETS PO SCH (10:20)
[2019-01-22] MEDS: TAMSULOSIN HCL 0.4 MG CAP PO SCH (10:20)
[2019-01-22] MEDS: BACITRACIN 15 GM TUBE TOPICAL OINTMENT TP SCH (10:21)
--- NOTE | 2019-01-22 13:30 | PN ---
Progress Note, Physician History of Present Illness: patient with no events vascular input noted wbc stable still febrile imaging studies does not show any collection - Current Medication List Current Medications: Active Medications Acetaminophen (Tylenol -) 650 mg PO Q6H PRN PRN Reason: PAIN OR FEVER Last Admin: 01/22/19 10:20 Dose: 650 mg Aspirin (Asa -) 81 mg PO DAILY [facility] Last Admin: 01/22/19 10:20 Dose: 81 mg Atorvastatin Calcium (Lipitor -) 20 mg PO HS [facility] Last Admin: 01/21/19 21:38 Dose: 20 mg Bacitracin (Bacitracin -) 1 applic TP DAILY [facility] Last Admin: 01/22/19 10:21 Dose: 1 applic Clopidogrel Bisulfate (Plavix -) 75 mg PO AM [facility] Last Admin: 01/22/19 06:50 Dose: 75 mg Heparin Sodium (Porcine) (Heparin -) 5,000 unit SQ TID [facility] Last Admin: 01/22/19 05:42 Dose: 5,000 unit Piperacillin Sod/Tazobactam (Sod 2.25 gm/ Dextrose) 50 mls @ 100 mls/hr IVPB Q8H-IV [facility]; Protocol Last Admin: 01/22/19 10:19 Dose: 100 mls/hr Clindamycin Phosphate (Cleocin 600 Mg Premix Ivpb -) 600 mg in 50 mls @ 100 mls /hr IVPB Q8H-IV [facility]; Protocol Last Admin: 01/22/19 10:19 Dose: 100 mls/hr Vancomycin HCl (Vancomycin (Pre-Docked)) 1,000 mg in 250 mls @ 200 mls/hr IVPB DAILY@1200 [facility]; Protocol Last Admin: 01/21/19 18:53 Dose: 200 mls/hr Insulin Aspart (Novolog Vial Sliding Scale -) 1 vial SQ ACHS [facility]; Protocol Last Admin: 01/22/19 12:22 Dose: 4 units Insulin Detemir (Levemir Vial) 14 units SQ BID@0700,2200 [facility] Last Admin: 01/22/19 06:34 Dose: 14 units Metoprolol Succinate (Toprol Xl -) 50 mg PO AM [facility] Last Admin: 01/22/19 06:51 Dose: 50 mg Promethazine HCl (Phenergan Injection -) 12.5 mg IVPB Q6H PRN PRN Reason: NAUSEA AND/OR VOMITING Tamsulosin HCl (Flomax -) 0.4 mg PO DAILY@0830 [facility] Last Admin: 01/22/19 10:20 Dose: 0.4 mg - Objective Vital Signs: Vital Signs Temperature 98.6 F 01/22/19 10:19 Pulse Rate 80 01/22/19 10:19 Respiratory Rate 18 01/22/19 10:19 Blood Pressure 131/62 01/22/19 10:19 O2 Sat by Pulse Oximetry (%) 95 01/20/19 21:00 Constitutional: Yes: No Distress Cardiovascular: Yes: Regular Rate and Rhythm Respiratory: Yes: Regular, CTA Bilaterally Gastrointestinal: Yes: Normal Bowel Sounds, Soft Musculoskeletal: Yes: Other Extremities: Yes: Other (swollen) Wound/Incision: Yes: Dressing Dry and Intact Neurological: Yes: Alert, Oriented Psychiatric: Yes: Alert, Oriented Labs: CBC, BMP 01/22/19 06:30 01/22/19 06:30 - ....Imaging Cat Scan: Report Reviewed, Image Reviewed Assessment/Plan Problem List - Problems (1) Left leg pain Code(s): M79.605 - PAIN IN LEFT LEG (2) AMADOU (acute kidney injury) Code(s): N17.9 - ACUTE KIDNEY FAILURE, UNSPECIFIED (3) CKD (chronic kidney disease) Code(s): N18.9 - CHRONIC KIDNEY DISEASE, UNSPECIFIED Qualifiers: Chronic kidney disease stage: stage 2 (mild) Qualified Code(s): N18.2 - Chronic kidney disease, stage 2 (mild) (4) HTN (hypertension) Code(s): I10 - ESSENTIAL (PRIMARY) HYPERTENSION Qualifiers: Hypertension type: essential hypertension Qualified Code(s): I10 - Essential (primary) hypertension (5) IDDM (insulin dependent diabetes mellitus) Code(s): E11.9 - TYPE 2 DIABETES MELLITUS WITHOUT COMPLICATIONS; Z79.4 - STRING CUTTER (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 OF INSULIN 6 leukocytosis plan continue abx monitor wbc closely vascular rest as per the team
[2019-01-22] MEDS: VANCOMYCIN 1 GRAM (PRE-DOCKED) 1,000 MG/250 ML BAG IVPB SCH (13:39)
--- NOTE | 2019-01-22 17:18 | PN ---
Progress Note, Physician History of Present Illness: Pt seen and examined at bedside. He says that he feels better today than yesterday. His left leg is less painful. - Current Medication List Current Medications: Active Medications Acetaminophen (Tylenol -) 650 mg PO Q6H PRN PRN Reason: PAIN OR FEVER Last Admin: 01/22/19 16:40 Dose: 650 mg Aspirin (Asa -) 81 mg PO DAILY [facility] Last Admin: 01/22/19 10:20 Dose: 81 mg Atorvastatin Calcium (Lipitor -) 20 mg PO HS [facility] Last Admin: 01/21/19 21:38 Dose: 20 mg Bacitracin (Bacitracin -) 1 applic TP DAILY [facility] Last Admin: 01/22/19 10:21 Dose: 1 applic Clopidogrel Bisulfate (Plavix -) 75 mg PO AM [facility] Last Admin: 01/22/19 06:50 Dose: 75 mg Heparin Sodium (Porcine) (Heparin -) 5,000 unit SQ TID [facility] Last Admin: 01/22/19 13:39 Dose: 5,000 unit Piperacillin Sod/Tazobactam (Sod 2.25 gm/ Dextrose) 50 mls @ 100 mls/hr IVPB Q8H-IV [facility]; Protocol Last Admin: 01/22/19 10:19 Dose: 100 mls/hr Clindamycin Phosphate (Cleocin 600 Mg Premix Ivpb -) 600 mg in 50 mls @ 100 mls /hr IVPB Q8H-IV [facility]; Protocol Last Admin: 01/22/19 10:19 Dose: 100 mls/hr Vancomycin HCl (Vancomycin (Pre-Docked)) 1,000 mg in 250 mls @ 200 mls/hr IVPB DAILY@1200 [facility]; Protocol Last Admin: 01/22/19 13:39 Dose: 200 mls/hr Insulin Aspart (Novolog Vial Sliding Scale -) 1 vial SQ ACHS [facility]; Protocol Last Admin: 01/22/19 12:22 Dose: 4 units Insulin Detemir (Levemir Vial) 15 units SQ BID@0700,2200 [facility] Metoprolol Succinate (Toprol Xl -) 50 mg PO AM [facility] Last Admin: 01/22/19 06:51 Dose: 50 mg Promethazine HCl (Phenergan Injection -) 12.5 mg IVPB Q6H PRN PRN Reason: NAUSEA AND/OR VOMITING Tamsulosin HCl (Flomax -) 0.4 mg PO DAILY@0830 [facility] Last Admin: 01/22/19 10:20 Dose: 0.4 mg - Objective Vital Signs: Vital Signs Temperature 99.5 F 01/22/19 14:00 Pulse Rate 88 01/22/19 14:00 Respiratory Rate 22 H 01/22/19 14:00 Blood Pressure 151/77 01/22/19 14:00 O2 Sat by Pulse Oximetry (%) 95 01/20/19 21:00 Constitutional: Yes: Calm Eyes: Yes: Conjunctiva Clear HENT: Yes: Atraumatic Cardiovascular: Yes: S1, S2 Respiratory: Yes: CTA Bilaterally Gastrointestinal: Yes: Soft Genitourinary: Yes: Lee Present Edema: Yes Edema: LLE: 2+ Integumentary: Yes: Erythema Neurological: Yes: Oriented Psychiatric: Yes: Oriented Labs: CBC, BMP 01/22/19 06:30 01/22/19 06:30 Problem List - Problems (1) AMADOU (acute kidney injury) Code(s): N17.9 - ACUTE KIDNEY FAILURE, UNSPECIFIED (2) CHF (congestive heart failure) Code(s): I50.9 - HEART FAILURE, UNSPECIFIED Qualifiers: Heart failure type: unspecified Qualified Code(s): I50.9 - Heart failure, unspecified (3) CKD (chronic kidney disease) Code(s): N18.9 - CHRONIC KIDNEY DISEASE, UNSPECIFIED Qualifiers: Chronic kidney disease stage: stage 3 (moderate) Qualified Code(s): N18.3 - Chronic kidney disease, stage 3 (moderate) (4) HTN (hypertension) Code(s): I10 - ESSENTIAL (PRIMARY) HYPERTENSION Qualifiers: Hypertension type: essential hypertension Qualified Code(s): I10 - Essential (primary) hypertension (5) IDDM (insulin dependent diabetes mellitus) Code(s): E11.9 - TYPE 2 DIABETES MELLITUS WITHOUT COMPLICATIONS; Z79.4 - BAG VALVER (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 OF INSULIN (6) Left leg pain Code(s): M79.605 - PAIN IN LEFT LEG Assessment/Plan Current Medications Generic Name Dose Route Start Last Admin Trade Name Freq PRN Reason Stop Dose Admin Acetaminophen 650 mg 01/15/19 07:10 01/22/19 16:40 Tylenol - PO 650 mg Q6H PRN Administration PAIN OR FEVER Aspirin 81 mg 01/15/19 10:00 01/22/19 10:20 Asa - PO 81 mg DAILY [facility] Administration Atorvastatin Calcium 20 mg 01/15/19 22:00 01/21/19 21:38 Lipitor - PO 20 mg HS [facility] Administration Bacitracin 1 applic 01/18/19 11:45 01/22/19 10:21 Bacitracin - TP 1 applic DAILY [facility] Administration Clopidogrel Bisulfate 75 mg 01/16/19 07:00 01/22/19 06:50 Plavix - PO 75 mg AM [facility] Administration Heparin Sodium (Porcine) 5,000 unit 01/15/19 14:00 01/22/19 13:39 Heparin - SQ 5,000 unit TID [facility] Administration Piperacillin Sod/Tazobactam 50 mls @ 100 mls/hr 01/17/19 18:00 01/22/19 10:19 Sod 2.25 gm/ Dextrose IVPB 100 mls/hr Q8H-IV [facility] Administration Protocol Clindamycin Phosphate 600 mg in 50 mls @ 100 mls/hr 01/20/19 10:00 01/22/19 10:19 Cleocin 600 Mg Premix Ivpb - IVPB 100 mls/hr Q8H-IV [facility] Administration Protocol Vancomycin HCl 1,000 mg in 250 mls @ 200 mls/hr 01/21/19 12:00 01/22/19 13:39 Vancomycin (Pre-Docked) IVPB 200 mls/hr DAILY@1200 [facility] Administration Protocol Insulin Aspart 1 vial 01/15/19 11:00 01/22/19 12:22 Novolog Vial Sliding Scale - SQ 4 units ACHS [facility] Administration Protocol Insulin Detemir 15 units 01/22/19 22:00 Levemir Vial SQ BID@0700,2200 [facility] Metoprolol Succinate 50 mg 01/16/19 07:00 01/22/19 06:51 Toprol Xl - PO 50 mg AM [facility] Administration Promethazine HCl 12.5 mg 01/15/19 16:50 Phenergan Injection - IVPB Q6H PRN NAUSEA AND/OR VOMITING Tamsulosin HCl 0.4 mg 01/16/19 08:30 01/22/19 10:20 Flomax - PO 0.4 mg DAILY@0830 [facility] Administration Impression 1. AMADOU 2. lower ext edema 3. leg pain 4. HTN 5. DM 6. CKD 7. large post void residual 8. cellulitis 9. sepsis Plan - renal function starting to improve - monitor vanco levels - can have amadou from sepsis - abx per ID - cont flomax - abx for cellulitis - renal diet for now
--- NOTE | 2019-01-22 17:37 | PN ---
Physical Exam: SUBJECTIVE: Patient seen and examined no new events overnight. OBJECTIVE: Vital Signs Period Temp Pulse Resp BP Sys/Cano Pulse Ox Last 24 Hr 98.4 F-101.5 F 80-105 18-22 131-151/62-77 GENERAL: The patient is awake, alert, and fully oriented, in no acute distress. HEAD: Normal with no signs of trauma. EYES: PERRL, extraocular movements intact, sclera anicteric, conjunctiva clear. ENT: dry mucous membranes. NECK: Trachea midline, full range of motion, supple. LUNGS: Breath sounds equal, clear to auscultation bilaterally, no wheezes, no crackles, no accessory muscle use. HEART: Regular rate and rhythm, S1, S2 ABDOMEN: Soft, nontender, nondistended, normoactive bowel sounds, no guarding, no rebound, EXTREMITIES: left leg edema, excoriation of skin, warm to touch, tender, gauze present PSYCH: Normal mood, SKIN: Warm, dry, Laboratory Results - last 24 hr 01/21/19 01/22/19 01/22/19 21:35 05:29 06:30 WBC RBC Hgb Hct MCV MCH MCHC RDW Plt Count MPV Absolute Neuts (auto) Neutrophils % Neutrophils % (Manual) Band Neutrophils % Lymphocytes % Lymphocytes % (Manual) Monocytes % Monocytes % (Manual) Eosinophils % Eosinophils % (Manual) Basophils % Basophils % (Manual) Myelocytes % (Man) Promyelocytes % (Man) Blast Cells % (Manual) Nucleated RBC % Metamyelocytes Hypochromia Platelet Estimate Polychromasia Poikilocytosis Anisocytosis Microcytosis Macrocytosis Sodium Potassium Chloride Carbon Dioxide Anion Gap BUN Creatinine Creat Clearance w eGFR POC Glucometer 195 161 Random Glucose Calcium Magnesium Total Bilirubin AST ALT Alkaline Phosphatase C-Reactive Protein Total Protein Albumin Random Vancomycin 16.5 L 01/22/19 01/22/19 01/22/19 06:30 06:30 06:30 WBC 21.0 H RBC 2.54 L Hgb 7.2 L Hct 21.2 L D MCV 83.7 MCH 28.2 MCHC 33.7 RDW 14.9 Plt Count 214 MPV 8.3 Absolute Neuts (auto) 18.5 H Neutrophils % 88.0 H Neutrophils % (Manual) 88.0 H Band Neutrophils % 0.0 Lymphocytes % 5.8 L D Lymphocytes % (Manual) 4.0 L D Monocytes % 5.1 Monocytes % (Manual) 5 D Eosinophils % 0.7 Eosinophils % (Manual) 3.0 D Basophils % 0.4 Basophils % (Manual) 0.0 Myelocytes % (Man) 0 Promyelocytes % (Man) 0 Blast Cells % (Manual) 0 Nucleated RBC % 0 Metamyelocytes 0 Hypochromia 0 Platelet Estimate Normal Polychromasia 0 Poikilocytosis 0 Anisocytosis 1+ Microcytosis 1+ Macrocytosis 0 Sodium 136 Potassium 4.1 Chloride 104 Carbon Dioxide 23 Anion Gap 9 BUN 46 H Creatinine 2.4 H Creat Clearance w eGFR 27.66 POC Glucometer Random Glucose 140 H Calcium 7.3 L Magnesium 2.2 Total Bilirubin 0.5 AST 24 ALT 14 Alkaline Phosphatase 114 C-Reactive Protein 18.1 H Cancelled Total Protein 5.8 L Albumin 1.2 L Random Vancomycin 01/22/19 12:19 WBC RBC Hgb Hct MCV MCH MCHC RDW Plt Count MPV Absolute Neuts (auto) Neutrophils % Neutrophils % (Manual) Band Neutrophils % Lymphocytes % Lymphocytes % (Manual) Monocytes % Monocytes % (Manual) Eosinophils % Eosinophils % (Manual) Basophils % Basophils % (Manual) Myelocytes % (Man) Promyelocytes % (Man) Blast Cells % (Manual) Nucleated RBC % Metamyelocytes Hypochromia Platelet Estimate Polychromasia Poikilocytosis Anisocytosis Microcytosis Macrocytosis Sodium Potassium Chloride Carbon Dioxide Anion Gap BUN Creatinine Creat Clearance w eGFR POC Glucometer 211 Random Glucose Calcium Magnesium Total Bilirubin AST ALT Alkaline Phosphatase C-Reactive Protein Total Protein Albumin Random Vancomycin Active Medications Generic Name Dose Route Start Last Admin Trade Name Gilsonq PRN Reason Stop Dose Admin Acetaminophen 650 mg 01/15/19 07:10 01/22/19 16:40 Tylenol - PO 650 mg Q6H PRN Administration PAIN OR FEVER Aspirin 81 mg 01/15/19 10:00 01/22/19 10:20 Asa - PO 81 mg DAILY [facility] Administration Atorvastatin Calcium 20 mg 01/15/19 22:00 01/21/19 21:38 Lipitor - PO 20 mg HS [facility] Administration Bacitracin 1 applic 01/18/19 11:45 01/22/19 10:21 Bacitracin - TP 1 applic DAILY [facility] Administration Clopidogrel Bisulfate 75 mg 01/16/19 07:00 01/22/19 06:50 Plavix - PO 75 mg AM [facility] Administration Heparin Sodium (Porcine) 5,000 unit 01/15/19 14:00 01/22/19 13:39 Heparin - SQ 5,000 unit TID [facility] Administration Piperacillin Sod/Tazobactam 50 mls @ 100 mls/hr 01/17/19 18:00 01/22/19 10:19 Sod 2.25 gm/ Dextrose IVPB 100 mls/hr Q8H-IV [facility] Administration Protocol Clindamycin Phosphate 600 mg in 50 mls @ 100 mls/hr 01/20/19 10:00 01/22/19 10:19 Cleocin 600 Mg Premix Ivpb - IVPB 100 mls/hr Q8H-IV [facility] Administration Protocol Vancomycin HCl 1,000 mg in 250 mls @ 200 mls/hr 01/21/19 12:00 01/22/19 13:39 Vancomycin (Pre-Docked) IVPB 200 mls/hr DAILY@1200 [facility] Administration Protocol Insulin Aspart 1 vial 01/15/19 11:00 01/22/19 12:22 Novolog Vial Sliding Scale - SQ 4 units ACHS [facility] Administration Protocol Insulin Detemir 15 units 01/22/19 22:00 Levemir Vial SQ BID@0700,2200 [facility] Metoprolol Succinate 50 mg 01/16/19 07:00 01/22/19 06:51 Toprol Xl - PO 50 mg AM [facility] Administration Promethazine HCl 12.5 mg 01/15/19 16:50 Phenergan Injection - IVPB Q6H PRN NAUSEA AND/OR VOMITING Tamsulosin HCl 0.4 mg 01/16/19 08:30 01/22/19 10:20 Flomax - PO 0.4 mg DAILY@0830 [facility] Administration ASSESSMENT/PLAN: Patient is a 59 year old male with past medical history of IDDM , HTN, HLD, PAD, CAD s/p PCI, CKD, presented to the ED with 1 day history of left lower extremity pain. # Cellulitis left leg with on vanco, zosyna and clinda leg elevation iD and vascular surgery on case. case discussed with vascular surgeon dr elkins, ct discussed ( no collection), continue medical management pt is still febrile. wound culture growing mrsa repeat blood culture pending wbc stable crp decreased to 18 pt states leg is better than before #Elevated BNP -BNP 4724, likely 2/2 CKD -No SOB, No evidence of congestion on CXR, # tray on CKD base line cr 1.43 cr 2.4 getting better Lee cath in situ pt also states that he use to eat naproxen twice a day and is taking it from a long time on flomax #, IDDM BGM sliding scale sugar running oin 250 levemir 15 bid #HTN toprol xl 50 daily #FEN -Not on any standing fluids -Routine bmp monitoring -Diabetic/Sodium controlled diet #Prophylaxis -Heparin 5000units sq tid #Disposition -full code -med surg Visit type - Emergency Visit Emergency Visit: Yes ED Registration Date: 01/13/19 Care time: The patient presented to the Emergency Department on the above date and was hospitalized for further evaluation of their emergent condition. - New Patient This patient is new to me today: No - Critical Care Critical Care patient: No
[2019-01-22] MEDS: ATORVASTATIN CA 20 MG TABLET (FP) PO SCH (21:20)
[2019-01-22] MEDS: MEROPENEM 1 GM in DEXTROSE 5%-WATER 100 ML IVPB SCH (21:51)
[2019-01-23] MEDS: CLINDAMYCIN 600MG PREMIX IVPB 600 MG/50 ML BAG IVPB SCH ×3 (01:18→17:41)
[2019-01-23] MEDS: ACETAMINOPHEN 325 MG TABLET (FP) PO PRN ×2 (01:59→13:47)
[2019-01-23] MEDS: HEPARIN NA (PORCINE) 5,000 UNITS/ML 1ML VIAL SQ SCH ×3 (05:54→21:45)
[2019-01-23] MEDS: INSULIN (LEVEMIR) 100 UNITS/ML UNITS SQ SCH ×2 (06:18→21:46)
[2019-01-23] MEDS: INSULIN SLIDING SCALE (NOVOLOG) 1 VIAL SQ SCH ×4 (06:19→21:46)
[2019-01-23] MEDS: CLOPIDOGREL BISULFATE 75 MG TABLET (FP) PO SCH (06:19)
--- NOTE | 2019-01-23 08:16 | PN ---
Progress Note, Physician Chief Complaint: Patient feels improved less - Current Medication List Current Medications: Active Medications Acetaminophen (Tylenol -) 650 mg PO Q6H PRN PRN Reason: PAIN OR FEVER Last Admin: 01/23/19 01:59 Dose: 650 mg Aspirin (Asa -) 81 mg PO DAILY [facility] Last Admin: 01/22/19 10:20 Dose: 81 mg Atorvastatin Calcium (Lipitor -) 20 mg PO HS [facility] Last Admin: 01/22/19 21:20 Dose: 20 mg Bacitracin (Bacitracin -) 1 applic TP DAILY [facility] Last Admin: 01/22/19 10:21 Dose: 1 applic Clopidogrel Bisulfate (Plavix -) 75 mg PO AM [facility] Last Admin: 01/23/19 06:19 Dose: 75 mg Heparin Sodium (Porcine) (Heparin -) 5,000 unit SQ TID [facility] Last Admin: 01/23/19 05:54 Dose: 5,000 unit Clindamycin Phosphate (Cleocin 600 Mg Premix Ivpb -) 600 mg in 50 mls @ 100 mls /hr IVPB Q8H-IV [facility]; Protocol Last Admin: 01/23/19 01:18 Dose: 100 mls/hr Vancomycin HCl (Vancomycin (Pre-Docked)) 1,000 mg in 250 mls @ 200 mls/hr IVPB DAILY@1200 [facility]; Protocol Last Admin: 01/22/19 13:39 Dose: 200 mls/hr Meropenem 1 gm/ Dextrose 100 mls @ 200 mls/hr IVPB Q12H [facility] Last Admin: 01/22/19 21:51 Dose: 200 mls/hr Insulin Aspart (Novolog Vial Sliding Scale -) 1 vial SQ ACHS [facility]; Protocol Last Admin: 01/23/19 06:19 Dose: Not Given Insulin Detemir (Levemir Vial) 15 units SQ BID@0700,2200 [facility] Last Admin: 01/23/19 06:18 Dose: 15 units Metoprolol Succinate (Toprol Xl -) 50 mg PO AM [facility] Last Admin: 01/23/19 06:19 Dose: 50 mg Promethazine HCl (Phenergan Injection -) 12.5 mg IVPB Q6H PRN PRN Reason: NAUSEA AND/OR VOMITING Tamsulosin HCl (Flomax -) 0.4 mg PO DAILY@0830 [facility] Last Admin: 01/22/19 10:20 Dose: 0.4 mg - Objective Vital Signs: Vital Signs Temperature 100.1 F H 01/23/19 06:00 Pulse Rate 92 H 01/23/19 06:00 Respiratory Rate 18 01/23/19 06:00 Blood Pressure 135/56 L 01/23/19 06:00 O2 Sat by Pulse Oximetry (%) 96 01/22/19 19:58 Elderly man comfortable not in distress HEENT: Mm moist, no anemia, PERRLA, EOMI NECK: Rt IJ at place Mm moist no anemia, PERRLA EOMI CHST: CTA B/L CVS: S1S2 R no m/g/r ABD: No distention, non tender Bs + EXT: Rt LE toes amputation Left LE cellulitis improving no oozing of fluid, sensation and pulsations are present. LICENSED STAFF MFT: AOX3 non focal Labs: CBC, BMP 01/23/19 06:00 01/23/19 06:00 Problem List - Problems (1) T2DM (type 2 diabetes mellitus) Assessment/Plan: on Insulin F/U accucheck increse leimir to 15 units BID with correction dose insulin. Code(s): E11.9 - TYPE 2 DIABETES MELLITUS WITHOUT COMPLICATIONS Qualifiers: Chronic kidney disease stage: stage 3 (moderate) (2) CKD (chronic kidney disease) Assessment/Plan: Due to Diabetic nephropathy F/U BMP Code(s): N18.9 - CHRONIC KIDNEY DISEASE, UNSPECIFIED Qualifiers: Chronic kidney disease stage: stage 3 (moderate) Qualified Code(s): N18.3 - Chronic kidney disease, stage 3 (moderate) (3) HTN (hypertension) Assessment/Plan: Well controlled cont current meds Code(s): I10 - ESSENTIAL (PRIMARY) HYPERTENSION Qualifiers: Hypertension type: essential hypertension Qualified Code(s): I10 - Essential (primary) hypertension (4) Malnutrition Assessment/Plan: Low albumin F/U nutrition consult. add on Pre albumin level Code(s): E46 - UNSPECIFIED PROTEIN-CALORIE MALNUTRITION (5) CHF (congestive heart failure) Assessment/Plan: no acute symptoms. Code(s): I50.9 - HEART FAILURE, UNSPECIFIED Qualifiers: Heart failure type: unspecified Qualified Code(s): I50.9 - Heart failure, unspecified (6) Cellulitis of left lower extremity Assessment/Plan: Low grade fever minimal improvement TWBC 18 K patient is on IV vncomycine, Clindamycine and Meropenem Culture Grew MRSA Vanco trough 16.5 Code(s): L03.116 - CELLULITIS OF LEFT LOWER LIMB (7) Anemia Assessment/Plan: worsening chronic anemia will trasfuse 1 unit PRBC Code(s): D64.9 - ANEMIA, UNSPECIFIED (8) Left arm cellulitis Code(s): L03.114 - CELLULITIS OF LEFT UPPER LIMB
[2019-01-23] MEDS: TAMSULOSIN HCL 0.4 MG CAP PO SCH (08:20)
[2019-01-23] MEDS ORDERED: PT OWN MED DRAWER 7, Y5N ONE ×2 (09:07→21:05)
[2019-01-23] MEDS: MEROPENEM 1 GM in DEXTROSE 5%-WATER 100 ML IVPB SCH ×2 (09:18→21:45)
[2019-01-23] MEDS: BACITRACIN 15 GM TUBE TOPICAL OINTMENT TP SCH (09:18)
[2019-01-23] MEDS: ASPIRIN 81 MG CHEWABLE TABLETS PO SCH (09:18)
[2019-01-23 09:55] LABS: BASO % 0.2 % (0-2.0); EOS % 0.7 % (0-4.5); HEMATOCRIT 20.1 % (35.4-49); LYMPH % 7.9 % (8-40); MCH 27.9 pg (25.7-33.7); MCHC 33.4 g/dl (32.0-35.9); MEAN CELL VOLUME 83.5 fl (80-96); MEAN PLT VOLUME 8.4 fl (7.5-11.1); MONO % 5.9 % (3.8-10.2); NEUT % 85.3 % (42.8-82.8); PLATELET COUNT 272 K/MM3 (134-434); RDW 14.7 % (11.9-15.9)
[2019-01-23 10:04] LABS: HEMOGLOBIN 6.7 GM/dL (11.7-16.9)
[2019-01-23 10:49] LABS: ALBUMIN 1.2 g/dl (3.4-5.0); ALK PHOS 97 U/L (45-117); ANION GAP 10 MMOL/L (8-16); BILIRUBIN,TOTAL 0.7 mg/dL (0.2-1); BLOOD UREA NITROGEN 41 mg/dL (7-18); CALCIUM 7.2 mg/dL (8.5-10.1); CHLORIDE 105 mmol/L (98-107); CO2 23 mmol/L (21-32); CREATININE 2.3 mg/dL (0.55-1.3); GLUCOSE,RANDOM 72 mg/dL (74-106); POTASSIUM 4.3 mmol/L (3.5-5.1); SGOT/AST 22 U/L (15-37); SGPT/ALT 11 U/L (13-61); SODIUM 138 mmol/L (136-145); TOT PROT 5.9 g/dl (6.4-8.2)
[2019-01-23] MEDS ORDERED: INSULIN (NOVOLOG) ASPART 100 UNITS/ML 10ML VIAL ONE (11:44)
[2019-01-23] MEDS: VANCOMYCIN 1 GRAM (PRE-DOCKED) 1,000 MG/250 ML BAG IVPB SCH (13:00)
--- NOTE | 2019-01-23 14:35 | PN ---
Progress Note, Physician History of Present Illness: Pt seen and examined, events noted, labs/imaging results reviewed. Pt had 2 episodes of loose BMs today, denies abd pain. Received PRBC transfusion for drop in Hgb. States leg pain is improving. Tmax 101F. - Current Medication List Current Medications: Active Medications Acetaminophen (Tylenol -) 650 mg PO Q6H PRN PRN Reason: PAIN OR FEVER Last Admin: 01/23/19 13:47 Dose: 650 mg Aspirin (Asa -) 81 mg PO DAILY [facility] Last Admin: 01/23/19 09:18 Dose: 81 mg Atorvastatin Calcium (Lipitor -) 20 mg PO HS [facility] Last Admin: 01/22/19 21:20 Dose: 20 mg Bacitracin (Bacitracin -) 1 applic TP DAILY [facility] Last Admin: 01/23/19 09:18 Dose: 1 applic Clopidogrel Bisulfate (Plavix -) 75 mg PO AM [facility] Last Admin: 01/23/19 06:19 Dose: 75 mg Heparin Sodium (Porcine) (Heparin -) 5,000 unit SQ TID [facility] Last Admin: 01/23/19 05:54 Dose: 5,000 unit Clindamycin Phosphate (Cleocin 600 Mg Premix Ivpb -) 600 mg in 50 mls @ 100 mls /hr IVPB Q8H-IV [facility]; Protocol Last Admin: 01/23/19 09:18 Dose: 100 mls/hr Vancomycin HCl (Vancomycin (Pre-Docked)) 1,000 mg in 250 mls @ 200 mls/hr IVPB DAILY@1200 [facility]; Protocol Last Admin: 01/23/19 13:00 Dose: 200 mls/hr Meropenem 1 gm/ Dextrose 100 mls @ 200 mls/hr IVPB Q12H [facility] Last Admin: 01/23/19 09:18 Dose: 200 mls/hr Insulin Aspart (Novolog Vial Sliding Scale -) 1 vial SQ ACHS [facility]; Protocol Last Admin: 01/23/19 11:46 Dose: 2 units Insulin Detemir (Levemir Vial) 15 units SQ BID@0700,2200 [facility] Last Admin: 01/23/19 06:18 Dose: 15 units Metoprolol Succinate (Toprol Xl -) 50 mg PO AM [facility] Last Admin: 01/23/19 06:19 Dose: 50 mg Promethazine HCl (Phenergan Injection -) 12.5 mg IVPB Q6H PRN PRN Reason: NAUSEA AND/OR VOMITING Tamsulosin HCl (Flomax -) 0.4 mg PO DAILY@0830 [facility] Last Admin: 01/23/19 08:20 Dose: 0.4 mg - Objective Vital Signs: Vital Signs Temperature 99.6 F 01/23/19 13:46 Pulse Rate 90 01/23/19 13:46 Respiratory Rate 18 01/23/19 13:46 Blood Pressure 138/68 01/23/19 13:46 O2 Sat by Pulse Oximetry (%) 96 01/22/19 19:58 Constitutional: Yes: No Distress, Calm Cardiovascular: Yes: Regular Rate and Rhythm Gastrointestinal: Yes: Normal Bowel Sounds, Soft Wound/Incision: Yes: Other (LLE edema slightly improved, no current drainage from wound, no tenderness) Neurological: Yes: Alert Labs: CBC, BMP 01/23/19 06:00 01/23/19 06:00 Microbiology 01/22/19 06:30 Blood - Peripheral Venous Blood Culture - Preliminary NO GROWTH OBTAINED AFTER 24 HOURS, INCUBATION TO CONTINUE FOR 4 DAYS. 01/22/19 06:30 Blood - Peripheral Venous Blood Culture - Preliminary NO GROWTH OBTAINED AFTER 24 HOURS, INCUBATION TO CONTINUE FOR 4 DAYS. 01/17/19 14:58 Blood - Peripheral Venous Blood Culture - Final NO GROWTH AFTER 5 DAYS INCUBATION 01/17/19 13:50 Blood - Peripheral Venous Blood Culture - Final NO GROWTH AFTER 5 DAYS INCUBATION 01/18/19 12:00 Calf - Left Posterior Gram Stain - Final 01/18/19 12:00 Calf - Left Posterior Wound Culture - Final S Aureus 01/17/19 13:35 Urine - Urine Lee Urine Culture - Final NO GROWTH OBTAINED - ....Imaging Cat Scan: Report Reviewed Problem List - Problems (1) AMADOU (acute kidney injury) Code(s): N17.9 - ACUTE KIDNEY FAILURE, UNSPECIFIED (2) CHF (congestive heart failure) Code(s): I50.9 - HEART FAILURE, UNSPECIFIED Qualifiers: Heart failure type: unspecified Qualified Code(s): I50.9 - Heart failure, unspecified (3) CKD (chronic kidney disease) Code(s): N18.9 - CHRONIC KIDNEY DISEASE, UNSPECIFIED Qualifiers: Chronic kidney disease stage: stage 3 (moderate) Qualified Code(s): N18.3 - Chronic kidney disease, stage 3 (moderate) (4) Cellulitis of left lower extremity Code(s): L03.116 - CELLULITIS OF LEFT LOWER LIMB (5) HTN (hypertension) Code(s): I10 - ESSENTIAL (PRIMARY) HYPERTENSION Qualifiers: Hypertension type: essential hypertension Qualified Code(s): I10 - Essential (primary) hypertension (6) T2DM (type 2 diabetes mellitus) Code(s): E11.9 - TYPE 2 DIABETES MELLITUS WITHOUT COMPLICATIONS Qualifiers: Chronic kidney disease stage: stage 3 (moderate) Assessment/Plan Leukocytosis improving but remains febrile - continue monitor Continue current antibiotics for now Having loose BMs today, send stool for CDT repeat cbc, monitor renal function (stable) Vancomycin Trough to be checked tomorrow Continue wound care
--- NOTE | 2019-01-23 16:12 | PN ---
Progress Note, Physician History of Present Illness: Pt seen and examined at bedside. He is awake and alert. He feels that his leg is a little better today. He is however still having fevers. - Current Medication List Current Medications: Active Medications Acetaminophen (Tylenol -) 650 mg PO Q6H PRN PRN Reason: PAIN OR FEVER Last Admin: 01/23/19 13:47 Dose: 650 mg Aspirin (Asa -) 81 mg PO DAILY [facility] Last Admin: 01/23/19 09:18 Dose: 81 mg Atorvastatin Calcium (Lipitor -) 20 mg PO HS [facility] Last Admin: 01/22/19 21:20 Dose: 20 mg Bacitracin (Bacitracin -) 1 applic TP DAILY [facility] Last Admin: 01/23/19 09:18 Dose: 1 applic Clopidogrel Bisulfate (Plavix -) 75 mg PO AM [facility] Last Admin: 01/23/19 06:19 Dose: 75 mg Heparin Sodium (Porcine) (Heparin -) 5,000 unit SQ TID [facility] Last Admin: 01/23/19 14:48 Dose: 5,000 unit Clindamycin Phosphate (Cleocin 600 Mg Premix Ivpb -) 600 mg in 50 mls @ 100 mls /hr IVPB Q8H-IV [facility]; Protocol Last Admin: 01/23/19 09:18 Dose: 100 mls/hr Vancomycin HCl (Vancomycin (Pre-Docked)) 1,000 mg in 250 mls @ 200 mls/hr IVPB DAILY@1200 [facility]; Protocol Last Admin: 01/23/19 13:00 Dose: 200 mls/hr Meropenem 1 gm/ Dextrose 100 mls @ 200 mls/hr IVPB Q12H [facility] Last Admin: 01/23/19 09:18 Dose: 200 mls/hr Insulin Aspart (Novolog Vial Sliding Scale -) 1 vial SQ ACHS [facility]; Protocol Last Admin: 01/23/19 11:46 Dose: 2 units Insulin Detemir (Levemir Vial) 15 units SQ BID@0700,2200 [facility] Last Admin: 01/23/19 06:18 Dose: 15 units Metoprolol Succinate (Toprol Xl -) 50 mg PO AM [facility] Last Admin: 01/23/19 06:19 Dose: 50 mg Promethazine HCl (Phenergan Injection -) 12.5 mg IVPB Q6H PRN PRN Reason: NAUSEA AND/OR VOMITING Tamsulosin HCl (Flomax -) 0.4 mg PO DAILY@0830 [facility] Last Admin: 01/23/19 08:20 Dose: 0.4 mg - Objective Vital Signs: Vital Signs Temperature 99.6 F 01/23/19 13:46 Pulse Rate 90 01/23/19 13:46 Respiratory Rate 18 01/23/19 13:46 Blood Pressure 138/68 01/23/19 13:46 O2 Sat by Pulse Oximetry (%) 96 01/22/19 19:58 Constitutional: Yes: Calm Eyes: Yes: Conjunctiva Clear HENT: Yes: Atraumatic Cardiovascular: Yes: S1, S2 Respiratory: Yes: CTA Bilaterally, On Nasal O2 Gastrointestinal: Yes: Normal Bowel Sounds, Soft Genitourinary: Yes: Lee Present Musculoskeletal: Yes: Muscle Weakness Edema: Yes Edema: LLE: 2+ Integumentary: Yes: Erythema Neurological: Yes: Oriented Psychiatric: Yes: Oriented Labs: CBC, BMP 01/23/19 06:00 01/23/19 06:00 Problem List - Problems (1) AMADOU (acute kidney injury) Code(s): N17.9 - ACUTE KIDNEY FAILURE, UNSPECIFIED (2) CHF (congestive heart failure) Code(s): I50.9 - HEART FAILURE, UNSPECIFIED Qualifiers: Heart failure type: unspecified Qualified Code(s): I50.9 - Heart failure, unspecified (3) CKD (chronic kidney disease) Code(s): N18.9 - CHRONIC KIDNEY DISEASE, UNSPECIFIED Qualifiers: Chronic kidney disease stage: stage 3 (moderate) Qualified Code(s): N18.3 - Chronic kidney disease, stage 3 (moderate) (4) HTN (hypertension) Code(s): I10 - ESSENTIAL (PRIMARY) HYPERTENSION Qualifiers: Hypertension type: essential hypertension Qualified Code(s): I10 - Essential (primary) hypertension (5) IDDM (insulin dependent diabetes mellitus) Code(s): E11.9 - TYPE 2 DIABETES MELLITUS WITHOUT COMPLICATIONS; 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 (6) Left leg pain Code(s): M79.605 - PAIN IN LEFT LEG Assessment/Plan Current Medications Generic Name Dose Route Start Last Admin Trade Name Freq PRN Reason Stop Dose Admin Acetaminophen 650 mg 01/15/19 07:10 01/23/19 13:47 Tylenol - PO 650 mg Q6H PRN Administration PAIN OR FEVER Aspirin 81 mg 01/15/19 10:00 01/23/19 09:18 Asa - PO 81 mg DAILY [facility] Administration Atorvastatin Calcium 20 mg 01/15/19 22:00 01/22/19 21:20 Lipitor - PO 20 mg HS [facility] Administration Bacitracin 1 applic 01/18/19 11:45 01/23/19 09:18 Bacitracin - TP 1 applic DAILY [facility] Administration Clopidogrel Bisulfate 75 mg 01/16/19 07:00 01/23/19 06:19 Plavix - PO 75 mg AM [facility] Administration Heparin Sodium (Porcine) 5,000 unit 01/15/19 14:00 01/23/19 14:48 Heparin - SQ 5,000 unit TID [facility] Administration Clindamycin Phosphate 600 mg in 50 mls @ 100 mls/hr 01/20/19 10:00 01/23/19 09:18 Cleocin 600 Mg Premix Ivpb - IVPB 100 mls/hr Q8H-IV [facility] Administration Protocol Vancomycin HCl 1,000 mg in 250 mls @ 200 mls/hr 01/21/19 12:00 01/23/19 13:00 Vancomycin (Pre-Docked) IVPB 200 mls/hr DAILY@1200 [facility] Administration Protocol Meropenem 1 gm/ Dextrose 100 mls @ 200 mls/hr 01/22/19 22:00 01/23/19 09:18 IVPB 200 mls/hr Q12H [facility] Administration Insulin Aspart 1 vial 01/15/19 11:00 01/23/19 11:46 Novolog Vial Sliding Scale - SQ 2 units ACHS [facility] Administration Protocol Insulin Detemir 15 units 01/22/19 22:00 01/23/19 06:18 Levemir Vial SQ 15 units BID@0700,2200 [facility] Administration Metoprolol Succinate 50 mg 01/16/19 07:00 01/23/19 06:19 Toprol Xl - PO 50 mg AM [facility] Administration Promethazine HCl 12.5 mg 01/15/19 16:50 Phenergan Injection - IVPB Q6H PRN NAUSEA AND/OR VOMITING Tamsulosin HCl 0.4 mg 01/16/19 08:30 01/23/19 08:20 Flomax - PO 0.4 mg DAILY@0830 [facility] Administration Impression 1. AMADOU 2. lower ext edema 3. leg pain 4. HTN 5. DM 6. CKD 7. large post void residual 8. cellulitis 9. sepsis Plan - cont to monitor renal function, skein drier improving - pt getting prbc - abx per ID - follow wbc - cont flomax - abx for cellulitis - renal diet for now
[2019-01-23] MEDS ORDERED: ACETAMINOPHEN 650 MG SUPP.RECT PR PRN (18:23)
[2019-01-23] MEDS ORDERED: AMPICILLIN NA/SULBACTAM NA 3 GM in SODIUM CHLORIDE 100 ML IVPB SCH (18:30)
[2019-01-23] MEDS: ATORVASTATIN CA 20 MG TABLET (FP) PO SCH (21:45)
[2019-01-24] MEDS: CLINDAMYCIN 600MG PREMIX IVPB 600 MG/50 ML BAG IVPB SCH ×3 (01:28→17:38)
[2019-01-24] MEDS: INSULIN (LEVEMIR) 100 UNITS/ML UNITS SQ SCH ×2 (06:15→21:53)
[2019-01-24] MEDS: INSULIN SLIDING SCALE (NOVOLOG) 1 VIAL SQ SCH ×4 (06:15→21:54)
[2019-01-24] MEDS: HEPARIN NA (PORCINE) 5,000 UNITS/ML 1ML VIAL SQ SCH ×3 (06:15→21:53)
[2019-01-24] MEDS: CLOPIDOGREL BISULFATE 75 MG TABLET (FP) PO SCH (06:16)
[2019-01-24 07:49] LABS: ANION GAP 8 MMOL/L (8-16); BLOOD UREA NITROGEN 38 mg/dL (7-18); CALCIUM 7.3 mg/dL (8.5-10.1); CHLORIDE 105 mmol/L (98-107); CO2 23 mmol/L (21-32); GLUCOSE,RANDOM 130 mg/dL (74-106); POTASSIUM 4.8 mmol/L (3.5-5.1); SODIUM 135 mmol/L (136-145)
[2019-01-24 07:57] LABS: BASO % 0.4 % (0-2.0); EOS % 0.8 % (0-4.5); HEMATOCRIT 23.6 % (35.4-49); HEMOGLOBIN 8.2 GM/dL (11.7-16.9); LYMPH % 8.4 % (8-40); MCH 29.1 pg (25.7-33.7); MEAN PLT VOLUME 8.3 fl (7.5-11.1); MONO % 4.9 % (3.8-10.2); NEUT % 85.5 % (42.8-82.8); PLATELET COUNT 367 K/MM3 (134-434); RBC 2.84 M/mm3 (4.00-5.60); RDW 14.5 % (11.9-15.9)
[2019-01-24] MEDS ORDERED: PT OWN MED DRAWER 7, Y5N ONE ×2 (09:28→20:43)
[2019-01-24] MEDS: TAMSULOSIN HCL 0.4 MG CAP PO SCH (09:34)
[2019-01-24] MEDS: ASPIRIN 81 MG CHEWABLE TABLETS PO SCH (09:35)
[2019-01-24] MEDS: MEROPENEM 1 GM in DEXTROSE 5%-WATER 100 ML IVPB SCH ×2 (09:35→20:50)
[2019-01-24] MEDS: BACITRACIN 15 GM TUBE TOPICAL OINTMENT TP SCH (09:36)
--- NOTE | 2019-01-24 10:15 | PN ---
Progress Note, Physician Chief Complaint: Patient feels improved less - Current Medication List Current Medications: Active Medications Acetaminophen (Tylenol Suppository -) 650 mg DE Q4H PRN PRN Reason: FEVER Aspirin (Asa -) 81 mg PO DAILY [facility] Last Admin: 01/24/19 09:35 Dose: 81 mg Atorvastatin Calcium (Lipitor -) 20 mg PO HS [facility] Last Admin: 01/23/19 21:45 Dose: 20 mg Bacitracin (Bacitracin -) 1 applic TP DAILY [facility] Last Admin: 01/24/19 09:36 Dose: 1 applic Clopidogrel Bisulfate (Plavix -) 75 mg PO AM [facility] Last Admin: 01/24/19 06:16 Dose: 75 mg Heparin Sodium (Porcine) (Heparin -) 5,000 unit SQ TID [facility] Last Admin: 01/24/19 06:15 Dose: 5,000 unit Clindamycin Phosphate (Cleocin 600 Mg Premix Ivpb -) 600 mg in 50 mls @ 100 mls /hr IVPB Q8H-IV [facility]; Protocol Last Admin: 01/24/19 09:35 Dose: 100 mls/hr Vancomycin HCl (Vancomycin (Pre-Docked)) 1,000 mg in 250 mls @ 200 mls/hr IVPB DAILY@1200 [facility]; Protocol Last Admin: 01/23/19 13:00 Dose: 200 mls/hr Meropenem 1 gm/ Dextrose 100 mls @ 200 mls/hr IVPB Q12H [facility] Last Admin: 01/24/19 09:35 Dose: 200 mls/hr Insulin Aspart (Novolog Vial Sliding Scale -) 1 vial SQ ACHS [facility]; Protocol Last Admin: 01/24/19 06:15 Dose: Not Given Insulin Detemir (Levemir Vial) 15 units SQ BID@0700,2200 [facility] Last Admin: 01/24/19 06:15 Dose: 15 units Metoprolol Succinate (Toprol Xl -) 50 mg PO AM [facility] Last Admin: 01/24/19 06:16 Dose: 50 mg Promethazine HCl (Phenergan Injection -) 12.5 mg IVPB Q6H PRN PRN Reason: NAUSEA AND/OR VOMITING Tamsulosin HCl (Flomax -) 0.4 mg PO DAILY@0830 [facility] Last Admin: 01/24/19 09:34 Dose: 0.4 mg - Objective Vital Signs: Vital Signs Temperature 99.8 F H 01/24/19 06:00 Pulse Rate 86 01/24/19 06:00 Respiratory Rate 20 01/24/19 06:00 Blood Pressure 140/55 L 01/24/19 06:00 O2 Sat by Pulse Oximetry (%) 96 01/23/19 22:00 Elderly man comfortable not in distress HEENT: Mm moist, no anemia, PERRLA, EOMI NECK: Rt IJ at place Mm moist no anemia, PERRLA EOMI CHST: CTA B/L CVS: S1S2 R no m/g/r ABD: No distention, non tender Bs + EXT: Rt LE toes amputation Left LE cellulitis improving no oozing of fluid, sensation and pulsations are present. 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 Code(s): E11.9 - TYPE 2 DIABETES MELLITUS WITHOUT COMPLICATIONS Qualifiers: Chronic kidney disease stage: stage 3 (moderate) (2) CKD (chronic kidney disease) Assessment/Plan: Due to Diabetic nephropathy F/U BMP Code(s): N18.9 - CHRONIC KIDNEY DISEASE, UNSPECIFIED Qualifiers: Chronic kidney disease stage: stage 3 (moderate) Qualified Code(s): N18.3 - Chronic kidney disease, stage 3 (moderate) (3) HTN (hypertension) Assessment/Plan: Well controlled cont current meds Code(s): I10 - ESSENTIAL (PRIMARY) HYPERTENSION Qualifiers: Hypertension type: essential hypertension Qualified Code(s): I10 - Essential (primary) hypertension (4) Malnutrition Assessment/Plan: Low albumin F/U nutrition consult. add on Pre albumin level Code(s): E46 - UNSPECIFIED PROTEIN-CALORIE MALNUTRITION (5) CHF (congestive heart failure) Assessment/Plan: no acute symptoms. Code(s): I50.9 - HEART FAILURE, UNSPECIFIED Qualifiers: Heart failure type: unspecified Qualified Code(s): I50.9 - Heart failure, unspecified (6) Cellulitis of left lower extremity Assessment/Plan: Low grade fever minimal improvement TWBC 16 K patient is on IV vncomycine, Clindamycine and Meropenem Culture Grew MRSA Vanco trough 16.5 Code(s): L03.116 - CELLULITIS OF LEFT LOWER LIMB (7) Anemia Assessment/Plan: worsening chronic anemia will trasfuse 1 unit PRBC Hb 8.2 F/U H/H Code(s): D64.9 - ANEMIA, UNSPECIFIED (8) Left arm cellulitis Code(s): L03.114 - CELLULITIS OF LEFT UPPER LIMB
[2019-01-24] MEDS: VANCOMYCIN 1 GRAM (PRE-DOCKED) 1,000 MG/250 ML BAG IVPB SCH (12:18)
--- NOTE | 2019-01-24 14:51 | PN ---
Progress Note, Physician History of Present Illness: Pt feels better today. Temperatures trending down. Less LE pain. No abd pain/ diarrhea today. - Current Medication List Current Medications: Active Medications Acetaminophen (Tylenol Suppository -) 650 mg VA Q4H PRN PRN Reason: FEVER Aspirin (Asa -) 81 mg PO DAILY [facility] Last Admin: 01/24/19 09:35 Dose: 81 mg Atorvastatin Calcium (Lipitor -) 20 mg PO HS [facility] Last Admin: 01/23/19 21:45 Dose: 20 mg Bacitracin (Bacitracin -) 1 applic TP DAILY [facility] Last Admin: 01/24/19 09:36 Dose: 1 applic Clopidogrel Bisulfate (Plavix -) 75 mg PO AM [facility] Last Admin: 01/24/19 06:16 Dose: 75 mg Heparin Sodium (Porcine) (Heparin -) 5,000 unit SQ TID [facility] Last Admin: 01/24/19 06:15 Dose: 5,000 unit Clindamycin Phosphate (Cleocin 600 Mg Premix Ivpb -) 600 mg in 50 mls @ 100 mls /hr IVPB Q8H-IV [facility]; Protocol Last Admin: 01/24/19 09:35 Dose: 100 mls/hr Vancomycin HCl (Vancomycin (Pre-Docked)) 1,000 mg in 250 mls @ 200 mls/hr IVPB DAILY@1200 [facility]; Protocol Last Admin: 01/24/19 12:18 Dose: 200 mls/hr Meropenem 1 gm/ Dextrose 100 mls @ 200 mls/hr IVPB Q12H [facility] Last Admin: 01/24/19 09:35 Dose: 200 mls/hr Insulin Aspart (Novolog Vial Sliding Scale -) 1 vial SQ ACHS [facility]; Protocol Last Admin: 01/24/19 12:24 Dose: 4 units Insulin Detemir (Levemir Vial) 15 units SQ BID@0700,2200 [facility] Last Admin: 01/24/19 06:15 Dose: 15 units Metoprolol Succinate (Toprol Xl -) 50 mg PO AM [facility] Last Admin: 01/24/19 06:16 Dose: 50 mg Promethazine HCl (Phenergan Injection -) 12.5 mg IVPB Q6H PRN PRN Reason: NAUSEA AND/OR VOMITING Tamsulosin HCl (Flomax -) 0.4 mg PO DAILY@0830 [facility] Last Admin: 01/24/19 09:34 Dose: 0.4 mg - Objective Vital Signs: Vital Signs Temperature 99 F 01/24/19 10:00 Pulse Rate 89 01/24/19 10:00 Respiratory Rate 18 01/24/19 10:00 Blood Pressure 130/60 01/24/19 10:00 O2 Sat by Pulse Oximetry (%) 96 01/23/19 22:00 Constitutional: Yes: No Distress, Calm Cardiovascular: Yes: Regular Rate and Rhythm Respiratory: Yes: Regular Integumentary: Yes: WNL Wound/Incision: Yes: Other (Lt calf dressing dry, LLE edema decreasing, less warmth/tenderness) Neurological: Yes: Alert Labs: CBC, BMP 01/24/19 06:15 01/24/19 06:15 Microbiology 01/23/19 20:30 Stool Clostridium difficile Antigen (AMBER) - Final 01/23/19 20:30 Stool Clostridium difficile Toxin Assay - Final 01/22/19 06:30 Blood - Peripheral Venous Blood Culture - Preliminary NO GROWTH OBTAINED AFTER 48 HOURS, INCUBATION TO CONTINUE FOR 3 DAYS. 01/22/19 06:30 Blood - Peripheral Venous Blood Culture - Preliminary NO GROWTH OBTAINED AFTER 48 HOURS, INCUBATION TO CONTINUE FOR 3 DAYS. 01/17/19 14:58 Blood - Peripheral Venous Blood Culture - Final NO GROWTH AFTER 5 DAYS INCUBATION 01/17/19 13:50 Blood - Peripheral Venous Blood Culture - Final NO GROWTH AFTER 5 DAYS INCUBATION 01/18/19 12:00 Calf - Left Posterior Gram Stain - Final 01/18/19 12:00 Calf - Left Posterior Wound Culture - Final S Aureus 01/17/19 13:35 Urine - Urine Lee Urine Culture - Final NO GROWTH OBTAINED Problem List - Problems (1) AMADOU (acute kidney injury) Code(s): N17.9 - ACUTE KIDNEY FAILURE, UNSPECIFIED (2) CHF (congestive heart failure) Code(s): I50.9 - HEART FAILURE, UNSPECIFIED Qualifiers: Heart failure type: unspecified Qualified Code(s): I50.9 - Heart failure, unspecified (3) CKD (chronic kidney disease) Code(s): N18.9 - CHRONIC KIDNEY DISEASE, UNSPECIFIED Qualifiers: Chronic kidney disease stage: stage 3 (moderate) Qualified Code(s): N18.3 - Chronic kidney disease, stage 3 (moderate) (4) Cellulitis of left lower extremity Code(s): L03.116 - CELLULITIS OF LEFT LOWER LIMB (5) HTN (hypertension) Code(s): I10 - ESSENTIAL (PRIMARY) HYPERTENSION Qualifiers: Hypertension type: essential hypertension Qualified Code(s): I10 - Essential (primary) hypertension (6) T2DM (type 2 diabetes mellitus) Code(s): E11.9 - TYPE 2 DIABETES MELLITUS WITHOUT COMPLICATIONS Qualifiers: Chronic kidney disease stage: stage 3 (moderate) Assessment/Plan LLE Cellulitis/MRSA infection - slowly improving Leukocytosis improving, fever appears to be resolving Continue current antibiotics for now, will de-escalate as pt improves Stool CDT neg, no diarrhea today continue monitor cbc, monitor renal function Vancomycin Trough noted, continue current dose Continue wound care
--- NOTE | 2019-01-24 18:26 | PN ---
Progress Note, Physician History of Present Illness: Pt seen and examined at bedside. He is awake and alert. He feels that his leg is starting to feel better. He denies shortness of breath. - Current Medication List Current Medications: Active Medications Aspirin (Asa -) 81 mg PO DAILY [facility] Last Admin: 01/24/19 09:35 Dose: 81 mg Atorvastatin Calcium (Lipitor -) 20 mg PO HS [facility] Last Admin: 01/23/19 21:45 Dose: 20 mg Bacitracin (Bacitracin -) 1 applic TP DAILY [facility] Last Admin: 01/24/19 09:36 Dose: 1 applic Clopidogrel Bisulfate (Plavix -) 75 mg PO AM [facility] Last Admin: 01/24/19 06:16 Dose: 75 mg Heparin Sodium (Porcine) (Heparin -) 5,000 unit SQ TID [facility] Last Admin: 01/24/19 15:30 Dose: 5,000 unit Clindamycin Phosphate (Cleocin 600 Mg Premix Ivpb -) 600 mg in 50 mls @ 100 mls /hr IVPB Q8H-IV [facility]; Protocol Last Admin: 01/24/19 17:38 Dose: 100 mls/hr Vancomycin HCl (Vancomycin (Pre-Docked)) 1,000 mg in 250 mls @ 200 mls/hr IVPB DAILY@1200 [facility]; Protocol Last Admin: 01/24/19 12:18 Dose: 200 mls/hr Meropenem 1 gm/ Dextrose 100 mls @ 200 mls/hr IVPB Q12H [facility] Last Admin: 01/24/19 09:35 Dose: 200 mls/hr Insulin Aspart (Novolog Vial Sliding Scale -) 1 vial SQ ACHS [facility]; Protocol Last Admin: 01/24/19 17:36 Dose: 2 units Insulin Detemir (Levemir Vial) 15 units SQ BID@0700,2200 [facility] Last Admin: 01/24/19 06:15 Dose: 15 units Metoprolol Succinate (Toprol Xl -) 50 mg PO AM [facility] Last Admin: 01/24/19 06:16 Dose: 50 mg Promethazine HCl (Phenergan Injection -) 12.5 mg IVPB Q6H PRN PRN Reason: NAUSEA AND/OR VOMITING Tamsulosin HCl (Flomax -) 0.4 mg PO DAILY@0830 [facility] Last Admin: 01/24/19 09:34 Dose: 0.4 mg - Objective Vital Signs: Vital Signs Temperature 99 F 01/24/19 10:00 Pulse Rate 89 01/24/19 10:00 Respiratory Rate 18 01/24/19 10:00 Blood Pressure 130/60 01/24/19 10:00 O2 Sat by Pulse Oximetry (%) 96 01/24/19 09:00 Constitutional: Yes: Calm Eyes: Yes: Conjunctiva Clear HENT: Yes: Atraumatic Neck: Yes: Supple Cardiovascular: Yes: S1, S2 Respiratory: Yes: CTA Bilaterally Gastrointestinal: Yes: Soft Genitourinary: Yes: WNL Musculoskeletal: Yes: WNL Edema: Yes Edema: LLE: 1+ Integumentary: Yes: Erythema Neurological: Yes: Oriented Psychiatric: Yes: Oriented Labs: CBC, BMP 01/24/19 06:15 01/24/19 06:15 Problem List - Problems (1) AMADOU (acute kidney injury) Code(s): N17.9 - ACUTE KIDNEY FAILURE, UNSPECIFIED (2) CHF (congestive heart failure) Code(s): I50.9 - HEART FAILURE, UNSPECIFIED Qualifiers: Heart failure type: unspecified Qualified Code(s): I50.9 - Heart failure, unspecified (3) CKD (chronic kidney disease) Code(s): N18.9 - CHRONIC KIDNEY DISEASE, UNSPECIFIED Qualifiers: Chronic kidney disease stage: stage 3 (moderate) Qualified Code(s): N18.3 - Chronic kidney disease, stage 3 (moderate) (4) HTN (hypertension) Code(s): I10 - ESSENTIAL (PRIMARY) HYPERTENSION Qualifiers: Hypertension type: essential hypertension Qualified Code(s): I10 - Essential (primary) hypertension (5) IDDM (insulin dependent diabetes mellitus) Code(s): E11.9 - TYPE 2 DIABETES MELLITUS WITHOUT COMPLICATIONS; Z79.4 - S[employer]OR [employer] (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 OF INSULIN (6) Left leg pain Code(s): M79.605 - PAIN IN LEFT LEG Assessment/Plan Current Medications Generic Name Dose Route Start Last Admin Trade Name Freq PRN Reason Stop Dose Admin Aspirin 81 mg 01/15/19 10:00 01/24/19 09:35 Asa - PO 81 mg DAILY [facility] Administration Atorvastatin Calcium 20 mg 01/15/19 22:00 01/23/19 21:45 Lipitor - PO 20 mg HS [facility] Administration Bacitracin 1 applic 01/18/19 11:45 01/24/19 09:36 Bacitracin - TP 1 applic DAILY [facility] Administration Clopidogrel Bisulfate 75 mg 01/16/19 07:00 01/24/19 06:16 Plavix - PO 75 mg AM [facility] Administration Heparin Sodium (Porcine) 5,000 unit 01/15/19 14:00 01/24/19 15:30 Heparin - SQ 5,000 unit TID [facility] Administration Clindamycin Phosphate 600 mg in 50 mls @ 100 mls/hr 01/20/19 10:00 01/24/19 17:38 Cleocin 600 Mg Premix Ivpb - IVPB 100 mls/hr Q8H-IV [facility] Administration Protocol Vancomycin HCl 1,000 mg in 250 mls @ 200 mls/hr 01/21/19 12:00 01/24/19 12:18 Vancomycin (Pre-Docked) IVPB 200 mls/hr DAILY@1200 [facility] Administration Protocol Meropenem 1 gm/ Dextrose 100 mls @ 200 mls/hr 01/22/19 22:00 01/24/19 09:35 IVPB 200 mls/hr Q12H [facility] Administration Insulin Aspart 1 vial 01/15/19 11:00 01/24/19 17:36 Novolog Vial Sliding Scale - SQ 2 units ACHS [facility] Administration Protocol Insulin Detemir 15 units 01/22/19 22:00 01/24/19 06:15 Levemir Vial SQ 15 units BID@0700,2200 [facility] Administration Metoprolol Succinate 50 mg 01/16/19 07:00 01/24/19 06:16 Toprol Xl - PO 50 mg AM [facility] Administration Promethazine HCl 12.5 mg 01/15/19 16:50 Phenergan Injection - IVPB Q6H PRN NAUSEA AND/OR VOMITING Tamsulosin HCl 0.4 mg 01/16/19 08:30 01/24/19 09:34 Flomax - PO 0.4 mg DAILY@0830 [facility] Administration Impression 1. AMADOU 2. lower ext edema 3. leg pain 4. HTN 5. DM 6. CKD 7. large post void residual 8. cellulitis 9. sepsis Plan - renal function is improving - repeat labs in am - amadou likely in part from sepsis - abx per ID - will change diet to diabetic heart healthy
[2019-01-24] MEDS ORDERED: INSULIN (NOVOLOG) ASPART 100 UNITS/ML 10ML VIAL ONE (20:43)
[2019-01-24] MEDS: ATORVASTATIN CA 20 MG TABLET (FP) PO SCH (21:54)
[2019-01-25] MEDS: CLINDAMYCIN 600MG PREMIX IVPB 600 MG/50 ML BAG IVPB SCH ×2 (02:00→09:00)
[2019-01-25] MEDS: HEPARIN NA (PORCINE) 5,000 UNITS/ML 1ML VIAL SQ SCH ×3 (05:38→21:35)
[2019-01-25] MEDS: INSULIN SLIDING SCALE (NOVOLOG) 1 VIAL SQ SCH ×4 (06:09→21:36)
[2019-01-25] MEDS: INSULIN (LEVEMIR) 100 UNITS/ML UNITS SQ SCH ×2 (06:09→21:35)
[2019-01-25] MEDS: CLOPIDOGREL BISULFATE 75 MG TABLET (FP) PO SCH (06:09)
[2019-01-25] MEDS ORDERED: INSULIN (NOVOLOG) ASPART 100 UNITS/ML 10ML VIAL ONE ×2 (06:25→21:29)
[2019-01-25] MEDS ORDERED: PT OWN MED DRAWER 7, Y5N ONE ×2 (09:01→21:30)
[2019-01-25] MEDS: TAMSULOSIN HCL 0.4 MG CAP PO SCH (09:02)
[2019-01-25] MEDS: MEROPENEM 1 GM in DEXTROSE 5%-WATER 100 ML IVPB SCH ×2 (09:02→21:35)
[2019-01-25] MEDS: ASPIRIN 81 MG CHEWABLE TABLETS PO SCH (09:02)
[2019-01-25] MEDS: BACITRACIN 15 GM TUBE TOPICAL OINTMENT TP SCH (09:37)
[2019-01-25 10:46] LABS: BASO % 0.4 % (0-2.0); EOS % 1.1 % (0-4.5); HEMATOCRIT 22.8 % (35.4-49); HEMOGLOBIN 7.9 GM/dL (11.7-16.9); MCH 28.9 pg (25.7-33.7); MCHC 34.7 g/dl (32.0-35.9); MEAN CELL VOLUME 83.3 fl (80-96); MEAN PLT VOLUME 8.1 fl (7.5-11.1); MONO % 6.7 % (3.8-10.2); NEUT % 83.8 % (42.8-82.8); PLATELET COUNT 446 K/MM3 (134-434); RBC 2.74 M/mm3 (4.00-5.60); RDW 14.8 % (11.9-15.9); WHITE BLOOD COUNT 11.3 K/mm3 (4.0-10.0)
[2019-01-25 11:09] LABS: ANION GAP 8 MMOL/L (8-16); BLOOD UREA NITROGEN 34 mg/dL (7-18); CALCIUM 7.8 mg/dL (8.5-10.1); CHLORIDE 104 mmol/L (98-107); CO2 23 mmol/L (21-32); CREATININE 1.9 mg/dL (0.55-1.3); GLUCOSE,RANDOM 137 mg/dL (74-106); POTASSIUM 4.9 mmol/L (3.5-5.1); SODIUM 135 mmol/L (136-145)
[2019-01-25] MEDS: VANCOMYCIN 1 GRAM (PRE-DOCKED) 1,000 MG/250 ML BAG IVPB SCH (11:11)
--- NOTE | 2019-01-25 13:42 | PN ---
Progress Note, Physician History of Present Illness: patient continues to improve wbc resolving leg swelling improving fevers better - Current Medication List Current Medications: Active Medications Aspirin (Asa -) 81 mg PO DAILY [facility] Last Admin: 01/25/19 09:02 Dose: 81 mg Atorvastatin Calcium (Lipitor -) 20 mg PO HS [facility] Last Admin: 01/24/19 21:54 Dose: 20 mg Bacitracin (Bacitracin -) 1 applic TP DAILY [facility] Last Admin: 01/25/19 09:37 Dose: 1 applic Clopidogrel Bisulfate (Plavix -) 75 mg PO AM [facility] Last Admin: 01/25/19 06:09 Dose: 75 mg Heparin Sodium (Porcine) (Heparin -) 5,000 unit SQ TID [facility] Last Admin: 01/25/19 05:38 Dose: 5,000 unit Clindamycin Phosphate (Cleocin 600 Mg Premix Ivpb -) 600 mg in 50 mls @ 100 mls /hr IVPB Q8H-IV [facility]; Protocol Last Admin: 01/25/19 09:00 Dose: 100 mls/hr Vancomycin HCl (Vancomycin (Pre-Docked)) 1,000 mg in 250 mls @ 200 mls/hr IVPB DAILY@1200 [facility]; Protocol Last Admin: 01/25/19 11:11 Dose: 200 mls/hr Meropenem 1 gm/ Dextrose 100 mls @ 200 mls/hr IVPB Q12H [facility] Last Admin: 01/25/19 09:02 Dose: 200 mls/hr Insulin Aspart (Novolog Vial Sliding Scale -) 1 vial SQ ACHS [facility]; Protocol Last Admin: 01/25/19 11:13 Dose: 2 units Insulin Detemir (Levemir Vial) 15 units SQ BID@0700,2200 [facility] Last Admin: 01/25/19 06:09 Dose: 15 units Metoprolol Succinate (Toprol Xl -) 50 mg PO AM [facility] Last Admin: 01/25/19 06:09 Dose: 50 mg Promethazine HCl (Phenergan Injection -) 12.5 mg IVPB Q6H PRN PRN Reason: NAUSEA AND/OR VOMITING Tamsulosin HCl (Flomax -) 0.4 mg PO DAILY@0830 [facility] Last Admin: 01/25/19 09:02 Dose: 0.4 mg - Objective Vital Signs: Vital Signs Temperature 98.9 F 01/25/19 10:00 Pulse Rate 81 01/25/19 10:00 Respiratory Rate 20 01/25/19 10:00 Blood Pressure 127/57 L 01/25/19 10:00 O2 Sat by Pulse Oximetry (%) 94 L 01/25/19 09:00 Constitutional: Yes: No Distress, Calm Cardiovascular: Yes: Regular Rate and Rhythm Respiratory: Yes: Regular, CTA Bilaterally Gastrointestinal: Yes: Normal Bowel Sounds, Soft Genitourinary: Yes: Other Musculoskeletal: Yes: WNL Extremities: Yes: Other (swelling of the ext improving) Neurological: Yes: Alert, Oriented Labs: CBC, BMP 01/25/19 09:15 01/25/19 09:15 Assessment/Plan Problem List - Problems (1) Left leg pain Code(s): M79.605 - PAIN IN LEFT LEG (2) AMADOU (acute kidney injury) Code(s): N17.9 - ACUTE KIDNEY FAILURE, UNSPECIFIED (3) CKD (chronic kidney disease) Code(s): N18.9 - CHRONIC KIDNEY DISEASE, UNSPECIFIED Qualifiers: Chronic kidney disease stage: stage 2 (mild) Qualified Code(s): N18.2 - Chronic kidney disease, stage 2 (mild) (4) HTN (hypertension) Code(s): I10 - ESSENTIAL (PRIMARY) HYPERTENSION Qualifiers: Hypertension type: essential hypertension Qualified Code(s): I10 - Essential (primary) hypertension (5) IDDM (insulin dependent diabetes mellitus) Code(s): E11.9 - TYPE 2 DIABETES MELLITUS WITHOUT COMPLICATIONS; Z79.4 - PRISON (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 OF INSULIN 6 leukocytosis patient started to improve plan continue abx will start deescalating once stable rest as per the team patient improving
--- NOTE | 2019-01-25 14:56 | PN ---
Physical Exam: SUBJECTIVE: Patient seen and examined \pt states his leg is getting better. afebrile overnight. OBJECTIVE: Vital Signs Period Temp Pulse Resp BP Sys/Cano Pulse Ox Last 24 Hr 98.3 F-100 F 77-88 19-20 119-154/54-73 94-96 GENERAL: The patient is awake, alert, and fully oriented, in no acute distress. HEAD: Normal with no signs of trauma. EYES: PERRL, extraocular movements intact, sclera anicteric, conjunctiva clear. ENT: dry mucous membranes. NECK: Trachea midline, full range of motion, supple. LUNGS: Breath sounds equal, clear to auscultation bilaterally, no wheezes, no crackles, no accessory muscle use. HEART: Regular rate and rhythm, S1, S2 ABDOMEN: Soft, nontender, nondistended, normoactive bowel sounds, no guarding, no rebound, EXTREMITIES: left leg edema and induration getting better. dressing present on left calf leg, edema in dorsum of foot decreased. PSYCH: Normal mood, SKIN: Warm, dry, Laboratory Results - last 24 hr 01/24/19 01/24/19 01/25/19 17:36 21:50 05:37 WBC RBC Hgb Hct MCV MCH MCHC RDW Plt Count MPV Absolute Neuts (auto) Neutrophils % Lymphocytes % Monocytes % Eosinophils % Basophils % Nucleated RBC % Sodium Potassium Chloride Carbon Dioxide Anion Gap BUN Creatinine Creat Clearance w eGFR POC Glucometer 198 149 145 Random Glucose Calcium 01/25/19 01/25/19 01/25/19 09:15 09:15 11:13 WBC 11.3 H RBC 2.74 L Hgb 7.9 L Hct 22.8 L MCV 83.3 MCH 28.9 MCHC 34.7 RDW 14.8 Plt Count 446 H D MPV 8.1 Absolute Neuts (auto) 9.5 H Neutrophils % 83.8 H Lymphocytes % 8.0 Monocytes % 6.7 Eosinophils % 1.1 Basophils % 0.4 Nucleated RBC % 0 Sodium 135 L Potassium 4.9 Chloride 104 Carbon Dioxide 23 Anion Gap 8 BUN 34 H Creatinine 1.9 H Creat Clearance w eGFR 36.22 POC Glucometer 163 Random Glucose 137 H Calcium 7.8 L Active Medications Generic Name Dose Route Start Last Admin Trade Name Freq PRN Reason Stop Dose Admin Aspirin 81 mg 01/15/19 10:00 01/25/19 09:02 Asa - PO 81 mg DAILY [facility] Administration Atorvastatin Calcium 20 mg 01/15/19 22:00 01/24/19 21:54 Lipitor - PO 20 mg HS [facility] Administration Bacitracin 1 applic 01/18/19 11:45 01/25/19 09:37 Bacitracin - TP 1 applic DAILY [facility] Administration Clopidogrel Bisulfate 75 mg 01/16/19 07:00 01/25/19 06:09 Plavix - PO 75 mg AM [facility] Administration Heparin Sodium (Porcine) 5,000 unit 01/15/19 14:00 01/25/19 13:51 Heparin - SQ 5,000 unit TID [facility] Administration Vancomycin HCl 1,000 mg in 250 mls @ 200 mls/hr 01/21/19 12:00 01/25/19 11:11 Vancomycin (Pre-Docked) IVPB 200 mls/hr DAILY@1200 [facility] Administration Protocol Meropenem 1 gm/ Dextrose 100 mls @ 200 mls/hr 01/22/19 22:00 01/25/19 09:02 IVPB 200 mls/hr Q12H [facility] Administration Insulin Aspart 1 vial 01/15/19 11:00 01/25/19 11:13 Novolog Vial Sliding Scale - SQ 2 units ACHS [facility] Administration Protocol Insulin Detemir 15 units 01/22/19 22:00 01/25/19 06:09 Levemir Vial SQ 15 units BID@0700,2200 [facility] Administration Metoprolol Succinate 50 mg 01/16/19 07:00 01/25/19 06:09 Toprol Xl - PO 50 mg AM [facility] Administration Promethazine HCl 12.5 mg 01/15/19 16:50 Phenergan Injection - IVPB Q6H PRN NAUSEA AND/OR VOMITING Tamsulosin HCl 0.4 mg 01/16/19 08:30 01/25/19 09:02 Flomax - PO 0.4 mg DAILY@0830 [facility] Administration ASSESSMENT/PLAN: Patient is a 59 year old male with past medical history of IDDM , HTN, HLD, PAD, CAD s/p PCI, CKD, presented to the ED with 1 day history of left lower extremity pain. # Cellulitis left leg. Getting better on vanco and meropenem. clinda stopped leg elevation pt is still febrile. wound culture growing mrsa repeat blood culture no growth wbc getting better #Elevated BNP -BNP 4724, likely 2/2 CKD -No SOB, No evidence of congestion on CXR, # tray on CKD cr getting better 1.9 base line cr 1.43 Lee cath in situ for urine retention. on flomax, urology consult pt also states that he use to eat naproxen twice a day and is taking it from a long time #, IDDM BGM sliding scale sugar running oin 250 levemir 15 bid #HTN toprol xl 50 daily #FEN -Not on any standing fluids -Routine bmp monitoring -Diabetic/Sodium controlled diet #Prophylaxis -Heparin 5000units sq tid #Disposition -full code -med surg Visit type - Emergency Visit Emergency Visit: Yes ED Registration Date: 01/13/19 Care time: The patient presented to the Emergency Department on the above date and was hospitalized for further evaluation of their emergent condition. - New Patient This patient is new to me today: No - Critical Care Critical Care patient: No
--- NOTE | 2019-01-25 15:44 | CON.GU ---
Consult - History of Present Illness History of Present Illness: pt with multiple medical problems admitting with LE edema. Noted to be in urinary retention, flomax was started. No prior history - Past Medical History Cardio/Vascular: Yes: CAD, HTN, Hyperlipdemia Renal/: Yes: Renal Inusuff Endocrine: Yes: Diabetes Mellitus - Alcohol/Substance Use Hx Alcohol Use: No - Smoking History Smoking history: Never smoked Have you smoked in the past 12 months: No If you are a former smoker, when did you quit?: >10 years Home Medications - Allergies Allergies/Adverse Reactions: Allergies Allergy/AdvReac Type Severity Reaction Status Date / Time No Known Allergies Allergy Verified 01/13/19 16:49 - Home Medications Home Medications: Ambulatory Orders Aspirin [ASA -] 81 mg PO DAILY 01/13/19 Atorvastatin Ca [Lipitor] 20 mg PO HS 01/13/19 Clopidogrel Bisulfate [Plavix] 75 mg PO AM 01/13/19 Insulin (Novolog 70/30) [Novolog Mix 70/30 Vial] 30 units SQ HS 01/13/19 Insulin (Novolog 70/30) [Novolog Mix 70/30 Vial] 54 units SQ AM 01/13/19 Metoprolol Succinate 50 mg PO AM 01/13/19 Physical Exam- Vital Signs: Vital Signs Temperature 100.8 F H 01/25/19 15:21 Pulse Rate 88 01/25/19 15:21 Respiratory Rate 20 01/25/19 10:00 Blood Pressure 137/66 01/25/19 15:21 O2 Sat by Pulse Oximetry (%) 94 L 01/25/19 09:00 Labs: CBC, BMP 01/25/19 09:15 01/25/19 09:15 Problem List - Problems (1) Urinary retention Assessment/Plan: cont flomax, may give voiding trial when accurate output measurements are no longer necessary Code(s): R33.9 - RETENTION OF URINE, UNSPECIFIED
--- NOTE | 2019-01-25 16:39 | PN ---
Progress Note, Physician History of Present Illness: Pt seen and examined at bedside. He is awake and alert. He feels that his leg is improved. He denies shortness of breath. - Current Medication List Current Medications: Active Medications Acetaminophen (Tylenol -) 650 mg PO Q6H PRN PRN Reason: FEVER Amino Acids (Prosource No Carb Liquid Pkt) 30 ml PO BID@0800,1730 [facility] Aspirin (Asa -) 81 mg PO DAILY [facility] Last Admin: 01/25/19 09:02 Dose: 81 mg Atorvastatin Calcium (Lipitor -) 20 mg PO HS [facility] Last Admin: 01/24/19 21:54 Dose: 20 mg Bacitracin (Bacitracin -) 1 applic TP DAILY [facility] Last Admin: 01/25/19 09:37 Dose: 1 applic Clopidogrel Bisulfate (Plavix -) 75 mg PO AM [facility] Last Admin: 01/25/19 06:09 Dose: 75 mg Heparin Sodium (Porcine) (Heparin -) 5,000 unit SQ TID [facility] Last Admin: 01/25/19 13:51 Dose: 5,000 unit Vancomycin HCl (Vancomycin (Pre-Docked)) 1,000 mg in 250 mls @ 200 mls/hr IVPB DAILY@1200 [facility]; Protocol Last Admin: 01/25/19 11:11 Dose: 200 mls/hr Meropenem 1 gm/ Dextrose 100 mls @ 200 mls/hr IVPB Q12H [facility] Last Admin: 01/25/19 09:02 Dose: 200 mls/hr Insulin Aspart (Novolog Vial Sliding Scale -) 1 vial SQ ACHS [facility]; Protocol Last Admin: 01/25/19 11:13 Dose: 2 units Insulin Detemir (Levemir Vial) 15 units SQ BID@0700,2200 [facility] Last Admin: 01/25/19 06:09 Dose: 15 units Metoprolol Succinate (Toprol Xl -) 50 mg PO AM [facility] Last Admin: 01/25/19 06:09 Dose: 50 mg Promethazine HCl (Phenergan Injection -) 12.5 mg IVPB Q6H PRN PRN Reason: NAUSEA AND/OR VOMITING Tamsulosin HCl (Flomax -) 0.4 mg PO DAILY@0830 [facility] Last Admin: 01/25/19 09:02 Dose: 0.4 mg - Objective Vital Signs: Vital Signs Temperature 100.8 F H 01/25/19 15:21 Pulse Rate 88 01/25/19 15:21 Respiratory Rate 20 01/25/19 10:00 Blood Pressure 137/66 01/25/19 15:21 O2 Sat by Pulse Oximetry (%) 94 L 01/25/19 09:00 Constitutional: Yes: Calm Eyes: Yes: Conjunctiva Clear HENT: Yes: Atraumatic Neck: Yes: Supple Cardiovascular: Yes: S1, S2 Respiratory: Yes: CTA Bilaterally Gastrointestinal: Yes: Normal Bowel Sounds, Soft Genitourinary: Yes: WNL Breast(s): Yes: WNL Musculoskeletal: Yes: WNL Edema: Yes Edema: LLE: 1+ Neurological: Yes: Oriented Psychiatric: Yes: Oriented Labs: CBC, BMP 01/25/19 09:15 01/25/19 09:15 Problem List - Problems (1) AMADOU (acute kidney injury) Code(s): N17.9 - ACUTE KIDNEY FAILURE, UNSPECIFIED (2) CHF (congestive heart failure) Code(s): I50.9 - HEART FAILURE, UNSPECIFIED Qualifiers: Heart failure type: unspecified Qualified Code(s): I50.9 - Heart failure, unspecified (3) CKD (chronic kidney disease) Code(s): N18.9 - CHRONIC KIDNEY DISEASE, UNSPECIFIED Qualifiers: Chronic kidney disease stage: stage 3 (moderate) Qualified Code(s): N18.3 - Chronic kidney disease, stage 3 (moderate) (4) HTN (hypertension) Code(s): I10 - ESSENTIAL (PRIMARY) HYPERTENSION Qualifiers: Hypertension type: essential hypertension Qualified Code(s): I10 - Essential (primary) hypertension (5) IDDM (insulin dependent diabetes mellitus) Code(s): E11.9 - TYPE 2 DIABETES MELLITUS WITHOUT COMPLICATIONS; Z79.4 - TEXTILE 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 (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 OF 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 (6) Left leg pain Code(s): M79.605 - PAIN IN LEFT LEG Assessment/Plan Current Medications Generic Name Dose Route Start Last Admin Trade Name Freq PRN Reason Stop Dose Admin Acetaminophen 650 mg 01/25/19 15:01 Tylenol - PO Q6H PRN FEVER Amino Acids 30 ml 01/25/19 17:30 Prosource No Carb Liquid Pkt PO BID@0800,1730 [facility] Aspirin 81 mg 01/15/19 10:00 01/25/19 09:02 Asa - PO 81 mg DAILY [facility] Administration Atorvastatin Calcium 20 mg 01/15/19 22:00 01/24/19 21:54 Lipitor - PO 20 mg HS [facility] Administration Bacitracin 1 applic 01/18/19 11:45 01/25/19 09:37 Bacitracin - TP 1 applic DAILY [facility] Administration Clopidogrel Bisulfate 75 mg 01/16/19 07:00 01/25/19 06:09 Plavix - PO 75 mg AM [facility] Administration Heparin Sodium (Porcine) 5,000 unit 01/15/19 14:00 01/25/19 13:51 Heparin - SQ 5,000 unit TID [facility] Administration Vancomycin HCl 1,000 mg in 250 mls @ 200 mls/hr 01/21/19 12:00 01/25/19 11:11 Vancomycin (Pre-Docked) IVPB 200 mls/hr DAILY@1200 [facility] Administration Protocol Meropenem 1 gm/ Dextrose 100 mls @ 200 mls/hr 01/22/19 22:00 01/25/19 09:02 IVPB 200 mls/hr Q12H [facility] Administration Insulin Aspart 1 vial 01/15/19 11:00 01/25/19 11:13 Novolog Vial Sliding Scale - SQ 2 units ACHS [facility] Administration Protocol Insulin Detemir 15 units 01/22/19 22:00 01/25/19 06:09 Levemir Vial SQ 15 units BID@0700,2200 [facility] Administration Metoprolol Succinate 50 mg 01/16/19 07:00 01/25/19 06:09 Toprol Xl - PO 50 mg AM [facility] Administration Promethazine HCl 12.5 mg 01/15/19 16:50 Phenergan Injection - IVPB Q6H PRN NAUSEA AND/OR VOMITING Tamsulosin HCl 0.4 mg 01/16/19 08:30 01/25/19 09:02 Flomax - PO 0.4 mg DAILY@0830 [facility] Administration Impression 1. AMADOU 2. lower ext edema 3. leg pain 4. HTN 5. DM 6. CKD 7. large post void residual 8. cellulitis 9. sepsis Plan - renal function is stabilizing - cont to monitor - urology input appreciated, pt can get voiding trial - amadou likely in part from sepsis - abx per ID - will change diet to diabetic heart healthy
[2019-01-25] MEDS: AMINO ACIDS/PROTEIN HYDROLYS 30 ML LIQUID.PKT PO SCH (16:43)
--- NOTE | 2019-01-25 18:29 | PN ---
Teaching Attending Note Name of Resident: Jean-Paul Steve ATTENDING PHYSICIAN STATEMENT I saw and evaluated the patient. I reviewed the resident's note and discussed the case with the resident. I agree with the resident's findings and plan as documented. SUBJECTIVE: Feels well - no complaints. No fever/chills. OBJECTIVE: Febrile - T 100.8. Hemodynamcally Stable. Last Vital Signs Temp Pulse Resp BP Pulse Ox 100.8 F H 88 20 137/66 94 L 01/25/19 15:21 01/25/19 15:21 01/25/19 10:00 01/25/19 15:21 01/25/19 09:00 HEENT - Atraumatic, Normocephalic. No pharyngeal erythema/exudate. R IJ central line in situ Heart - S1, S2, RRR Lungs - clear to auscultation Abdomen - soft, non-tender. Bowel Sounds normal. Extremities - L calf ulcer dressed. Laboratory Results - last 24 hr 01/24/19 01/25/19 01/25/19 21:50 05:37 09:15 WBC 11.3 H RBC 2.74 L Hgb 7.9 L Hct 22.8 L MCV 83.3 MCH 28.9 MCHC 34.7 RDW 14.8 Plt Count 446 H D MPV 8.1 Absolute Neuts (auto) 9.5 H Neutrophils % 83.8 H Lymphocytes % 8.0 Monocytes % 6.7 Eosinophils % 1.1 Basophils % 0.4 Nucleated RBC % 0 Sodium Potassium Chloride Carbon Dioxide Anion Gap BUN Creatinine Creat Clearance w eGFR POC Glucometer 149 145 Random Glucose Calcium 01/25/19 01/25/19 01/25/19 09:15 11:13 16:31 WBC RBC Hgb Hct MCV MCH MCHC RDW Plt Count MPV Absolute Neuts (auto) Neutrophils % Lymphocytes % Monocytes % Eosinophils % Basophils % Nucleated RBC % Sodium 135 L Potassium 4.9 Chloride 104 Carbon Dioxide 23 Anion Gap 8 BUN 34 H Creatinine 1.9 H Creat Clearance w eGFR 36.22 POC Glucometer 163 198 Random Glucose 137 H Calcium 7.8 L Current Medications Generic Name Dose Route Start Last Admin Trade Name Freq PRN Reason Stop Dose Admin Acetaminophen 650 mg 01/25/19 15:01 Tylenol - PO Q6H PRN FEVER Amino Acids 30 ml 01/25/19 17:30 01/25/19 16:43 Prosource No Carb Liquid Pkt PO 30 ml BID@0800,1730 [facility] Administration Aspirin 81 mg 01/15/19 10:00 01/25/19 09:02 Asa - PO 81 mg DAILY [facility] Administration Atorvastatin Calcium 20 mg 01/15/19 22:00 01/24/19 21:54 Lipitor - PO 20 mg HS [facility] Administration Bacitracin 1 applic 01/18/19 11:45 01/25/19 09:37 Bacitracin - TP 1 applic DAILY [facility] Administration Clopidogrel Bisulfate 75 mg 01/16/19 07:00 01/25/19 06:09 Plavix - PO 75 mg AM [facility] Administration Heparin Sodium (Porcine) 5,000 unit 01/15/19 14:00 01/25/19 13:51 Heparin - SQ 5,000 unit TID [facility] Administration Vancomycin HCl 1,000 mg in 250 mls @ 200 mls/hr 01/21/19 12:00 01/25/19 11:11 Vancomycin (Pre-Docked) IVPB 200 mls/hr DAILY@1200 [facility] Administration Protocol Meropenem 1 gm/ Dextrose 100 mls @ 200 mls/hr 01/22/19 22:00 01/25/19 09:02 IVPB 200 mls/hr Q12H [facility] Administration Insulin Aspart 1 vial 01/15/19 11:00 01/25/19 16:40 Novolog Vial Sliding Scale - SQ 2 units ACHS [facility] Administration Protocol Insulin Detemir 15 units 01/22/19 22:00 01/25/19 06:09 Levemir Vial SQ 15 units BID@0700,2200 [facility] Administration Metoprolol Succinate 50 mg 01/16/19 07:00 01/25/19 06:09 Toprol Xl - PO 50 mg AM [facility] Administration Promethazine HCl 12.5 mg 01/15/19 16:50 Phenergan Injection - IVPB Q6H PRN NAUSEA AND/OR VOMITING Tamsulosin HCl 0.4 mg 01/16/19 08:30 01/25/19 09:02 Flomax - PO 0.4 mg DAILY@0830 [facility] Administration ASSESSMENT AND PLAN: 59 year old male with history of DM 2, HTN, HLD, PAD, CAD s/p PCI, CKD 3, presented to the ED with LLE pain, found to have infected ulcer. 1. Sepsis secondary to Cellulitis associated with ulcer LLE - Wound Cx growing MRSA - Continue Vancomycin and Meropenem as per ID. Clindamycin discontinued. Still febrile, leukocytosis improving. Stable hemodynamically. 2. DM 2 - continue Levemir and Novolog sliding scale. 3. AMADOU on CKD 3 - resolving. 4. HTN - Continue Toprol. 5. Anemia - Multifactorial - secondary to acute illness + CKD 3 H/H 7.9/22.8 s/p 1 unit PRBCs. 6. Lee in situ - ?urinary retention - Continue Flomax - for TOV. Urology consulted. 7. CAD s/p PCI - on Aspirin/Plavix, BB, Statin. 8. HLD - Continue Statin DVT Px- Heparin SQ
[2019-01-25] MEDS: ACETAMINOPHEN 325 MG TABLET (FP) PO PRN (19:02)
[2019-01-25] MEDS: ATORVASTATIN CA 20 MG TABLET (FP) PO SCH (21:35)
[2019-01-26] MEDS: ACETAMINOPHEN 325 MG TABLET (FP) PO PRN ×3 (02:24→21:59)
[2019-01-26] MEDS: HEPARIN NA (PORCINE) 5,000 UNITS/ML 1ML VIAL SQ SCH ×3 (06:05→21:58)
[2019-01-26] MEDS: INSULIN (LEVEMIR) 100 UNITS/ML UNITS SQ SCH ×2 (06:05→22:02)
[2019-01-26] MEDS: INSULIN SLIDING SCALE (NOVOLOG) 1 VIAL SQ SCH ×4 (06:06→22:01)
[2019-01-26] MEDS: CLOPIDOGREL BISULFATE 75 MG TABLET (FP) PO SCH (06:06)
[2019-01-26 07:51] LABS: HEMATOCRIT 22.5 % (35.4-49); HEMOGLOBIN 7.9 GM/dL (11.7-16.9); MCH 28.9 pg (25.7-33.7); MCHC 34.9 g/dl (32.0-35.9); MEAN CELL VOLUME 82.7 fl (80-96); MEAN PLT VOLUME 7.6 fl (7.5-11.1); PLATELET COUNT 487 K/MM3 (134-434); RBC 2.72 M/mm3 (4.00-5.60); RDW 14.8 % (11.9-15.9); WHITE BLOOD COUNT 9.1 K/mm3 (4.0-10.0)
[2019-01-26] MEDS: TAMSULOSIN HCL 0.4 MG CAP PO SCH (08:10)
[2019-01-26] MEDS: AMINO ACIDS/PROTEIN HYDROLYS 30 ML LIQUID.PKT PO SCH ×2 (08:10→17:15)
[2019-01-26 08:30] LABS: ALBUMIN 1.4 g/dl (3.4-5.0); ALK PHOS 80 U/L (45-117); ANION GAP 7 MMOL/L (8-16); BILIRUBIN,TOTAL 0.5 mg/dL (0.2-1); BLOOD UREA NITROGEN 35 mg/dL (7-18); CALCIUM 8.1 mg/dL (8.5-10.1); CHLORIDE 106 mmol/L (98-107); CO2 23 mmol/L (21-32); CREATININE 1.9 mg/dL (0.55-1.3); GLUCOSE,RANDOM 117 mg/dL (74-106); MAGNESIUM 2.3 mg/dL (1.8-2.4); PHOSPHOROUS 4.2 mg/dL (2.5-4.9); POTASSIUM 5.1 mmol/L (3.5-5.1); SGOT/AST 22 U/L (15-37); SGPT/ALT 13 U/L (13-61); SODIUM 136 mmol/L (136-145); TOT PROT 6.7 g/dl (6.4-8.2)
[2019-01-26] MEDS ORDERED: PT OWN MED DRAWER 7, Y5N ONE ×2 (09:38→22:04)
[2019-01-26] MEDS: BACITRACIN 15 GM TUBE TOPICAL OINTMENT TP SCH (09:50)
[2019-01-26] MEDS: ASPIRIN 81 MG CHEWABLE TABLETS PO SCH (09:50)
[2019-01-26] MEDS: MEROPENEM 1 GM in DEXTROSE 5%-WATER 100 ML IVPB SCH ×2 (09:50→22:05)
--- NOTE | 2019-01-26 12:14 | PN ---
Progress Note, Physician History of Present Illness: clinically better leg improving afebrile wbc has normalized - Current Medication List Current Medications: Active Medications Acetaminophen (Tylenol -) 650 mg PO Q6H PRN PRN Reason: FEVER Last Admin: 01/26/19 02:24 Dose: 650 mg Amino Acids (Prosource No Carb Liquid Pkt) 30 ml PO BID@0800,1730 [facility] Last Admin: 01/26/19 08:10 Dose: 30 ml Aspirin (Asa -) 81 mg PO DAILY [facility] Last Admin: 01/26/19 09:50 Dose: 81 mg Atorvastatin Calcium (Lipitor -) 20 mg PO HS [facility] Last Admin: 01/25/19 21:35 Dose: 20 mg Bacitracin (Bacitracin -) 1 applic TP DAILY [facility] Last Admin: 01/26/19 09:50 Dose: 1 applic Clopidogrel Bisulfate (Plavix -) 75 mg PO AM [facility] Last Admin: 01/26/19 06:06 Dose: 75 mg Heparin Sodium (Porcine) (Heparin -) 5,000 unit SQ TID [facility] Last Admin: 01/26/19 06:05 Dose: 5,000 unit Vancomycin HCl (Vancomycin (Pre-Docked)) 1,000 mg in 250 mls @ 200 mls/hr IVPB DAILY@1200 [facility]; Protocol Last Admin: 01/25/19 11:11 Dose: 200 mls/hr Meropenem 1 gm/ Dextrose 100 mls @ 200 mls/hr IVPB Q12H [facility] Last Admin: 01/26/19 09:50 Dose: 200 mls/hr Insulin Aspart (Novolog Vial Sliding Scale -) 1 vial SQ ACHS [facility]; Protocol Last Admin: 01/26/19 11:45 Dose: 2 units Insulin Detemir (Levemir Vial) 15 units SQ BID@0700,2200 [facility] Last Admin: 01/26/19 06:05 Dose: 15 units Metoprolol Succinate (Toprol Xl -) 50 mg PO AM [facility] Last Admin: 01/26/19 06:06 Dose: 50 mg Promethazine HCl (Phenergan Injection -) 12.5 mg IVPB Q6H PRN PRN Reason: NAUSEA AND/OR VOMITING Tamsulosin HCl (Flomax -) 0.4 mg PO DAILY@0830 [facility] Last Admin: 01/26/19 08:10 Dose: 0.4 mg - Objective Vital Signs: Vital Signs Temperature 99.3 F 01/26/19 05:00 Pulse Rate 88 01/26/19 05:00 Respiratory Rate 20 01/25/19 10:00 Blood Pressure 142/71 01/26/19 05:00 O2 Sat by Pulse Oximetry (%) 97 01/25/19 21:00 Constitutional: Yes: No Distress, Calm Cardiovascular: Yes: Regular Rate and Rhythm Respiratory: Yes: Regular, CTA Bilaterally Gastrointestinal: Yes: Normal Bowel Sounds, Soft Musculoskeletal: Yes: Other Extremities: Yes: Other (swelling improved,erythema improved) Neurological: Yes: Alert, Oriented Psychiatric: Yes: Alert, Oriented Labs: CBC, BMP 01/26/19 07:00 01/26/19 07:00 Assessment/Plan Problem List - Problems (1) Left leg pain Code(s): M79.605 - PAIN IN LEFT LEG (2) AMADOU (acute kidney injury) Code(s): N17.9 - ACUTE KIDNEY FAILURE, UNSPECIFIED (3) CKD (chronic kidney disease) Code(s): N18.9 - CHRONIC KIDNEY DISEASE, UNSPECIFIED Qualifiers: Chronic kidney disease stage: stage 2 (mild) Qualified Code(s): N18.2 - Chronic kidney disease, stage 2 (mild) (4) HTN (hypertension) Code(s): I10 - ESSENTIAL (PRIMARY) HYPERTENSION Qualifiers: Hypertension type: essential hypertension Qualified Code(s): I10 - Essential (primary) hypertension (5) IDDM (insulin dependent diabetes mellitus) Code(s): E11.9 - TYPE 2 DIABETES MELLITUS WITHOUT COMPLICATIONS; 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
[2019-01-26] MEDS: VANCOMYCIN 1 GRAM (PRE-DOCKED) 1,000 MG/250 ML BAG IVPB SCH (12:15)
--- NOTE | 2019-01-26 14:44 | PN ---
Teaching Attending Note Name of Resident: Jean-Paul Steve ATTENDING PHYSICIAN STATEMENT I saw and evaluated the patient. I reviewed the resident's note and discussed the case with the resident. I agree with the resident's findings and plan as documented. SUBJECTIVE: Feels well - no complaints. Fever overnight. Lee removed yesterday - voiding spontaneously - no hematuria/dysuria. OBJECTIVE: Febrile - Tmax 102.1. Hemodynamcally Stable. Last Vital Signs Temp Pulse Resp BP Pulse Ox 99.3 F 88 20 142/71 97 01/26/19 05:00 01/26/19 05:00 01/25/19 10:00 01/26/19 05:00 01/25/19 21:00 HEENT - Atraumatic, Normocephalic. No pharyngeal erythema/exudate. R IJ central line in situ Heart - S1, S2, RRR Lungs - clear to auscultation Abdomen - soft, non-tender. Bowel Sounds normal. Extremities - L calf ulcer dressed. Laboratory Results - last 24 hr 01/23/19 01/25/19 01/25/19 10:05 16:31 21:34 WBC RBC Hgb Hct MCV MCH MCHC RDW Plt Count MPV Sodium Potassium Chloride Carbon Dioxide Anion Gap BUN Creatinine Creat Clearance w eGFR POC Glucometer 198 186 Random Glucose Calcium Phosphorus Magnesium Total Bilirubin AST ALT Alkaline Phosphatase C-Reactive Protein Total Protein Albumin Blood Type AB POSITIVE Antibody Screen Negative Crossmatch See Detail 01/26/19 01/26/19 01/26/19 06:04 07:00 07:00 WBC 9.1 RBC 2.72 L Hgb 7.9 L Hct 22.5 L MCV 82.7 MCH 28.9 MCHC 34.9 RDW 14.8 Plt Count 487 H MPV 7.6 Sodium 136 Potassium 5.1 Chloride 106 Carbon Dioxide 23 Anion Gap 7 L BUN 35 H Creatinine 1.9 H Creat Clearance w eGFR 36.22 POC Glucometer 137 Random Glucose 117 H Calcium 8.1 L Phosphorus 4.2 Magnesium 2.3 Total Bilirubin 0.5 AST 22 ALT 13 Alkaline Phosphatase 80 C-Reactive Protein 12.0 H Total Protein 6.7 Albumin 1.4 L Blood Type Antibody Screen Crossmatch 01/26/19 11:40 WBC RBC Hgb Hct MCV MCH MCHC RDW Plt Count MPV Sodium Potassium Chloride Carbon Dioxide Anion Gap BUN Creatinine Creat Clearance w eGFR POC Glucometer 156 Random Glucose Calcium Phosphorus Magnesium Total Bilirubin AST ALT Alkaline Phosphatase C-Reactive Protein Total Protein Albumin Blood Type Antibody Screen Crossmatch Current Medications Generic Name Dose Route Start Last Admin Trade Name Gilsonq PRN Reason Stop Dose Admin Acetaminophen 650 mg 01/25/19 15:01 01/26/19 02:24 Tylenol - PO 650 mg Q6H PRN Administration FEVER Amino Acids 30 ml 01/25/19 17:30 01/26/19 08:10 Prosource No Carb Liquid Pkt PO 30 ml BID@0800,1730 [facility] Administration Aspirin 81 mg 01/15/19 10:00 01/26/19 09:50 Asa - PO 81 mg DAILY [facility] Administration Atorvastatin Calcium 20 mg 01/15/19 22:00 01/25/19 21:35 Lipitor - PO 20 mg HS [facility] Administration Bacitracin 1 applic 01/18/19 11:45 01/26/19 09:50 Bacitracin - TP 1 applic DAILY [facility] Administration Clopidogrel Bisulfate 75 mg 01/16/19 07:00 01/26/19 06:06 Plavix - PO 75 mg AM [facility] Administration Heparin Sodium (Porcine) 5,000 unit 01/15/19 14:00 01/26/19 06:05 Heparin - SQ 5,000 unit TID [facility] Administration Vancomycin HCl 1,000 mg in 250 mls @ 200 mls/hr 01/21/19 12:00 01/26/19 12:15 Vancomycin (Pre-Docked) IVPB 200 mls/hr DAILY@1200 [facility] Administration Protocol Meropenem 1 gm/ Dextrose 100 mls @ 200 mls/hr 01/22/19 22:00 01/26/19 09:50 IVPB 200 mls/hr Q12H [facility] Administration Insulin Aspart 1 vial 01/15/19 11:00 01/26/19 11:45 Novolog Vial Sliding Scale - SQ 2 units ACHS [facility] Administration Protocol Insulin Detemir 15 units 01/22/19 22:00 01/26/19 06:05 Levemir Vial SQ 15 units BID@0700,2200 [facility] Administration Metoprolol Succinate 50 mg 01/16/19 07:00 01/26/19 06:06 Toprol Xl - PO 50 mg AM [facility] Administration Promethazine HCl 12.5 mg 01/15/19 16:50 Phenergan Injection - IVPB Q6H PRN NAUSEA AND/OR VOMITING Tamsulosin HCl 0.4 mg 01/16/19 08:30 01/26/19 08:10 Flomax - PO 0.4 mg DAILY@0830 [facility] Administration ASSESSMENT AND PLAN: 59 year old male with history of DM 2, HTN, HLD, PAD, CAD s/p PCI, CKD 3, presented to the ED with LLE pain, found to have infected LLE ulcer. 1. Sepsis secondary to Cellulitis associated with ulcer LLE - Wound Cx growing MRSA - Continue Vancomycin and Meropenem as per ID. Clindamycin discontinued. Still febrile, leukocytosis improved Stable hemodynamically. If no fever for > 24 hours, can continue de-escalation of Abx. 2. DM 2 - continue Levemir and Novolog sliding scale. 3. AMADOU on CKD 3 - resolving. 4. HTN - Continue Toprol. 5. Anemia - Multifactorial - secondary to acute illness + CKD 3 H/H 7.9/22.5 s/p 1 unit PRBCs. 6. Hx of urinary retention - successful TOV - Continue Flomax. Urology following. 7. CAD s/p PCI - on Aspirin/Plavix, BB, Statin. 8. HLD - Continue Statin DVT Px- Heparin SQ
--- NOTE | 2019-01-26 15:22 | PN ---
Physical Exam: SUBJECTIVE: Patient seen and examined leg is much better. still spiking a fever to 101 t o 102 OBJECTIVE: Vital Signs Period Temp Pulse Resp BP Sys/Cano Pulse Ox Last 24 Hr 99.3 F-102.1 F 88-96 142-152/69-81 97 GENERAL: The patient is awake, alert, and fully oriented, in no acute distress. HEAD: Normal with no signs of trauma. EYES: PERRL, extraocular movements intact, sclera anicteric, conjunctiva clear. ENT: dry mucous membranes. NECK: Trachea midline, full range of motion, supple. LUNGS: Breath sounds equal, clear to auscultation bilaterally, no wheezes, no crackles, no accessory muscle use. HEART: Regular rate and rhythm, S1, S2 ABDOMEN: Soft, nontender, nondistended, normoactive bowel sounds, no guarding, no rebound, EXTREMITIES: left leg edema and induration getting better, edema in dorsum of foot decreased. wrinkles present on skin PSYCH: Normal mood, SKIN: Warm, dry, Laboratory Results - last 24 hr 01/23/19 01/25/19 01/25/19 10:05 16:31 21:34 WBC RBC Hgb Hct MCV MCH MCHC RDW Plt Count MPV Sodium Potassium Chloride Carbon Dioxide Anion Gap BUN Creatinine Creat Clearance w eGFR POC Glucometer 198 186 Random Glucose Calcium Phosphorus Magnesium Total Bilirubin AST ALT Alkaline Phosphatase C-Reactive Protein Total Protein Albumin Blood Type AB POSITIVE Antibody Screen Negative Crossmatch See Detail 01/26/19 01/26/19 01/26/19 06:04 07:00 07:00 WBC 9.1 RBC 2.72 L Hgb 7.9 L Hct 22.5 L MCV 82.7 MCH 28.9 MCHC 34.9 RDW 14.8 Plt Count 487 H MPV 7.6 Sodium 136 Potassium 5.1 Chloride 106 Carbon Dioxide 23 Anion Gap 7 L BUN 35 H Creatinine 1.9 H Creat Clearance w eGFR 36.22 POC Glucometer 137 Random Glucose 117 H Calcium 8.1 L Phosphorus 4.2 Magnesium 2.3 Total Bilirubin 0.5 AST 22 ALT 13 Alkaline Phosphatase 80 C-Reactive Protein 12.0 H Total Protein 6.7 Albumin 1.4 L Blood Type Antibody Screen Crossmatch 01/26/19 11:40 WBC RBC Hgb Hct MCV MCH MCHC RDW Plt Count MPV Sodium Potassium Chloride Carbon Dioxide Anion Gap BUN Creatinine Creat Clearance w eGFR POC Glucometer 156 Random Glucose Calcium Phosphorus Magnesium Total Bilirubin AST ALT Alkaline Phosphatase C-Reactive Protein Total Protein Albumin Blood Type Antibody Screen Crossmatch Active Medications Generic Name Dose Route Start Last Admin Trade Name Freq PRN Reason Stop Dose Admin Acetaminophen 650 mg 01/25/19 15:01 01/26/19 02:24 Tylenol - PO 650 mg Q6H PRN Administration FEVER Amino Acids 30 ml 01/25/19 17:30 01/26/19 08:10 Prosource No Carb Liquid Pkt PO 30 ml BID@0800,1730 [facility] Administration Aspirin 81 mg 01/15/19 10:00 01/26/19 09:50 Asa - PO 81 mg DAILY [facility] Administration Atorvastatin Calcium 20 mg 01/15/19 22:00 01/25/19 21:35 Lipitor - PO 20 mg HS [facility] Administration Bacitracin 1 applic 01/18/19 11:45 01/26/19 09:50 Bacitracin - TP 1 applic DAILY [facility] Administration Clopidogrel Bisulfate 75 mg 01/16/19 07:00 01/26/19 06:06 Plavix - PO 75 mg AM [facility] Administration Heparin Sodium (Porcine) 5,000 unit 01/15/19 14:00 01/26/19 06:05 Heparin - SQ 5,000 unit TID [facility] Administration Vancomycin HCl 1,000 mg in 250 mls @ 200 mls/hr 01/21/19 12:00 01/26/19 12:15 Vancomycin (Pre-Docked) IVPB 200 mls/hr DAILY@1200 [facility] Administration Protocol Meropenem 1 gm/ Dextrose 100 mls @ 200 mls/hr 01/22/19 22:00 01/26/19 09:50 IVPB 200 mls/hr Q12H [facility] Administration Insulin Aspart 1 vial 01/15/19 11:00 01/26/19 11:45 Novolog Vial Sliding Scale - SQ 2 units ACHS [facility] Administration Protocol Insulin Detemir 15 units 01/22/19 22:00 01/26/19 06:05 Levemir Vial SQ 15 units BID@0700,2200 [facility] Administration Metoprolol Succinate 50 mg 01/16/19 07:00 01/26/19 06:06 Toprol Xl - PO 50 mg AM [facility] Administration Promethazine HCl 12.5 mg 01/15/19 16:50 Phenergan Injection - IVPB Q6H PRN NAUSEA AND/OR VOMITING Tamsulosin HCl 0.4 mg 01/16/19 08:30 01/26/19 08:10 Flomax - PO 0.4 mg DAILY@0830 [facility] Administration ASSESSMENT/PLAN: Patient is a 59 year old male with past medical history of IDDM , HTN, HLD, PAD, CAD s/p PCI, CKD, presented to the ED with 1 day history of left lower extremity pain. # Cellulitis left leg. Getting better leg appears to be better than before but still spiking a fever on vanco and meropenem wbc 9.0 crp reduced leg elevation wound culture growing mrsa blood culture no growth id on case #Elevated BNP -BNP 4724, likely 2/2 CKD -No SOB, No evidence of congestion on CXR, # tray on CKD cr getting better 1.9 base line cr 1.43 cook removed yesterday #, IDDM BGM sliding scale sugar running oin 250 levemir 15 bid #HTN toprol xl 50 daily #FEN -Not on any standing fluids -Routine bmp monitoring -Diabetic/Sodium controlled diet #Prophylaxis -Heparin 5000units sq tid #Disposition -full code -med surg Visit type - Emergency Visit Emergency Visit: Yes ED Registration Date: 01/13/19 Care time: The patient presented to the Emergency Department on the above date and was hospitalized for further evaluation of their emergent condition. - New Patient This patient is new to me today: No - Critical Care Critical Care patient: No
--- NOTE | 2019-01-26 15:32 | PN ---
Progress Note, Physician History of Present Illness: Pt seen and examined at bedside. He is awake and alert. He denies shortness of breath. - Current Medication List Current Medications: Active Medications Acetaminophen (Tylenol -) 650 mg PO Q6H PRN PRN Reason: FEVER Last Admin: 01/26/19 02:24 Dose: 650 mg Amino Acids (Prosource No Carb Liquid Pkt) 30 ml PO BID@0800,1730 [facility] Last Admin: 01/26/19 08:10 Dose: 30 ml Aspirin (Asa -) 81 mg PO DAILY [facility] Last Admin: 01/26/19 09:50 Dose: 81 mg Atorvastatin Calcium (Lipitor -) 20 mg PO HS [facility] Last Admin: 01/25/19 21:35 Dose: 20 mg Bacitracin (Bacitracin -) 1 applic TP DAILY [facility] Last Admin: 01/26/19 09:50 Dose: 1 applic Clopidogrel Bisulfate (Plavix -) 75 mg PO AM [facility] Last Admin: 01/26/19 06:06 Dose: 75 mg Heparin Sodium (Porcine) (Heparin -) 5,000 unit SQ TID [facility] Last Admin: 01/26/19 06:05 Dose: 5,000 unit Vancomycin HCl (Vancomycin (Pre-Docked)) 1,000 mg in 250 mls @ 200 mls/hr IVPB DAILY@1200 [facility]; Protocol Last Admin: 01/26/19 12:15 Dose: 200 mls/hr Meropenem 1 gm/ Dextrose 100 mls @ 200 mls/hr IVPB Q12H [facility] Last Admin: 01/26/19 09:50 Dose: 200 mls/hr Insulin Aspart (Novolog Vial Sliding Scale -) 1 vial SQ ACHS [facility]; Protocol Last Admin: 01/26/19 11:45 Dose: 2 units Insulin Detemir (Levemir Vial) 15 units SQ BID@0700,2200 [facility] Last Admin: 01/26/19 06:05 Dose: 15 units Metoprolol Succinate (Toprol Xl -) 50 mg PO AM [facility] Last Admin: 01/26/19 06:06 Dose: 50 mg Promethazine HCl (Phenergan Injection -) 12.5 mg IVPB Q6H PRN PRN Reason: NAUSEA AND/OR VOMITING Tamsulosin HCl (Flomax -) 0.4 mg PO DAILY@0830 [facility] Last Admin: 01/26/19 08:10 Dose: 0.4 mg - Objective Vital Signs: Vital Signs Temperature 100.3 F H 01/26/19 15:12 Pulse Rate 93 H 01/26/19 15:12 Respiratory Rate 20 01/25/19 10:00 Blood Pressure 152/81 01/26/19 15:12 O2 Sat by Pulse Oximetry (%) 97 01/25/19 21:00 Constitutional: Yes: Calm Eyes: Yes: Conjunctiva Clear HENT: Yes: Atraumatic Neck: Yes: Supple Cardiovascular: Yes: S1, S2 Respiratory: Yes: CTA Bilaterally Gastrointestinal: Yes: Soft Genitourinary: Yes: WNL Edema: Yes Edema: LLE: 1+ Neurological: Yes: Oriented Psychiatric: Yes: Oriented Labs: CBC, BMP 01/26/19 07:00 01/26/19 07:00 Problem List - Problems (1) AMADOU (acute kidney injury) Code(s): N17.9 - ACUTE KIDNEY FAILURE, UNSPECIFIED (2) CHF (congestive heart failure) Code(s): I50.9 - HEART FAILURE, UNSPECIFIED Qualifiers: Heart failure type: unspecified Qualified Code(s): I50.9 - Heart failure, unspecified (3) CKD (chronic kidney disease) Code(s): N18.9 - CHRONIC KIDNEY DISEASE, UNSPECIFIED Qualifiers: Chronic kidney disease stage: stage 3 (moderate) Qualified Code(s): N18.3 - Chronic kidney disease, stage 3 (moderate) (4) HTN (hypertension) Code(s): I10 - ESSENTIAL (PRIMARY) HYPERTENSION Qualifiers: Hypertension type: essential hypertension Qualified Code(s): I10 - Essential (primary) hypertension (5) IDDM (insulin dependent diabetes mellitus) Code(s): E11.9 - TYPE 2 DIABETES MELLITUS WITHOUT COMPLICATIONS; Z79.4 - MEDICAL REIMBURSEMENT SPECIALIST (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 OF INSULIN (6) Left leg pain Code(s): M79.605 - PAIN IN LEFT LEG Assessment/Plan Current Medications Generic Name Dose Route Start Last Admin Trade Name Freq PRN Reason Stop Dose Admin Acetaminophen 650 mg 01/25/19 15:01 01/26/19 02:24 Tylenol - PO 650 mg Q6H PRN Administration FEVER Amino Acids 30 ml 01/25/19 17:30 01/26/19 08:10 Prosource No Carb Liquid Pkt PO 30 ml BID@0800,1730 [facility] Administration Aspirin 81 mg 01/15/19 10:00 01/26/19 09:50 Asa - PO 81 mg DAILY [facility] Administration Atorvastatin Calcium 20 mg 01/15/19 22:00 01/25/19 21:35 Lipitor - PO 20 mg HS [facility] Administration Bacitracin 1 applic 01/18/19 11:45 01/26/19 09:50 Bacitracin - TP 1 applic DAILY [facility] Administration Clopidogrel Bisulfate 75 mg 01/16/19 07:00 01/26/19 06:06 Plavix - PO 75 mg AM [facility] Administration Heparin Sodium (Porcine) 5,000 unit 01/15/19 14:00 01/26/19 06:05 Heparin - SQ 5,000 unit TID [facility] Administration Vancomycin HCl 1,000 mg in 250 mls @ 200 mls/hr 01/21/19 12:00 01/26/19 12:15 Vancomycin (Pre-Docked) IVPB 200 mls/hr DAILY@1200 [facility] Administration Protocol Meropenem 1 gm/ Dextrose 100 mls @ 200 mls/hr 01/22/19 22:00 01/26/19 09:50 IVPB 200 mls/hr Q12H [facility] Administration Insulin Aspart 1 vial 01/15/19 11:00 01/26/19 11:45 Novolog Vial Sliding Scale - SQ 2 units ACHS [facility] Administration Protocol Insulin Detemir 15 units 01/22/19 22:00 01/26/19 06:05 Levemir Vial SQ 15 units BID@0700,2200 [facility] Administration Metoprolol Succinate 50 mg 01/16/19 07:00 01/26/19 06:06 Toprol Xl - PO 50 mg AM [facility] Administration Promethazine HCl 12.5 mg 01/15/19 16:50 Phenergan Injection - IVPB Q6H PRN NAUSEA AND/OR VOMITING Tamsulosin HCl 0.4 mg 01/16/19 08:30 01/26/19 08:10 Flomax - PO 0.4 mg DAILY@0830 [facility] Administration Impression 1. AMADOU 2. lower ext edema 3. leg pain 4. HTN 5. DM 6. CKD 7. large post void residual 8. cellulitis 9. sepsis Plan - renal function stable - abx per ID - wound care to leg - avoid nsaids - amadou likely in part from sepsis
[2019-01-26] MEDS: ATORVASTATIN CA 20 MG TABLET (FP) PO SCH (21:58)
[2019-01-27] MEDS: ACETAMINOPHEN 325 MG TABLET (FP) PO PRN (04:00)
[2019-01-27] MEDS: CLOPIDOGREL BISULFATE 75 MG TABLET (FP) PO SCH (06:14)
[2019-01-27] MEDS: INSULIN SLIDING SCALE (NOVOLOG) 1 VIAL SQ SCH ×4 (06:14→21:31)
[2019-01-27] MEDS: INSULIN (LEVEMIR) 100 UNITS/ML UNITS SQ SCH ×2 (06:15→21:31)
[2019-01-27] MEDS: HEPARIN NA (PORCINE) 5,000 UNITS/ML 1ML VIAL SQ SCH ×3 (06:15→21:30)
--- NOTE | 2019-01-27 09:26 | PN ---
Physical Exam: SUBJECTIVE: Patient seen and examined OBJECTIVE: Vital Signs Period Temp Pulse Resp BP Sys/Cano Pulse Ox Last 24 Hr 100.0 F-102.5 F 93-93 18-20 135-152/65-81 98 GENERAL: The patient is awake, alert, and fully oriented, in no acute distress. HEAD: Normal with no signs of trauma. EYES: PERRL, extraocular movements intact, sclera anicteric, conjunctiva clear. ENT: dry mucous membranes. NECK: Trachea midline, full range of motion, supple. LUNGS: Breath sounds equal, clear to auscultation bilaterally, no wheezes, no crackles, no accessory muscle use. HEART: Regular rate and rhythm, S1, S2 ABDOMEN: Soft, nontender, nondistended, normoactive bowel sounds, no guarding, no rebound, EXTREMITIES: left leg edema and induration getting better, edema in dorsum of foot decreased. wrinkles present on skin PSYCH: Normal mood, SKIN: Warm, dry, Laboratory Results - last 24 hr 01/23/19 01/26/19 01/26/19 10:05 11:40 17:17 POC Glucometer 156 142 Blood Type AB POSITIVE Antibody Screen Negative Crossmatch See Detail 01/26/19 01/27/19 21:57 05:26 POC Glucometer 253 125 Blood Type Antibody Screen Crossmatch Active Medications Generic Name Dose Route Start Last Admin Trade Name Freq PRN Reason Stop Dose Admin Acetaminophen 650 mg 01/25/19 15:01 01/27/19 04:00 Tylenol - PO 650 mg Q6H PRN Administration FEVER Amino Acids 30 ml 01/25/19 17:30 01/26/19 17:15 Prosource No Carb Liquid Pkt PO 30 ml BID@0800,1730 [facility] Administration Aspirin 81 mg 01/15/19 10:00 01/26/19 09:50 Asa - PO 81 mg DAILY [facility] Administration Atorvastatin Calcium 20 mg 01/15/19 22:00 01/26/19 21:58 Lipitor - PO 20 mg HS [facility] Administration Bacitracin 1 applic 01/18/19 11:45 01/26/19 09:50 Bacitracin - TP 1 applic DAILY [facility] Administration Clopidogrel Bisulfate 75 mg 01/16/19 07:00 01/27/19 06:14 Plavix - PO 75 mg AM [facility] Administration Heparin Sodium (Porcine) 5,000 unit 01/15/19 14:00 01/27/19 06:15 Heparin - SQ 5,000 unit TID [facility] Administration Vancomycin HCl 1,000 mg in 250 mls @ 200 mls/hr 01/21/19 12:00 01/26/19 12:15 Vancomycin (Pre-Docked) IVPB 200 mls/hr DAILY@1200 [facility] Administration Protocol Meropenem 1 gm/ Dextrose 100 mls @ 200 mls/hr 01/22/19 22:00 01/26/19 22:05 IVPB 200 mls/hr Q12H [facility] Administration Insulin Aspart 1 vial 01/15/19 11:00 01/27/19 06:14 Novolog Vial Sliding Scale - SQ Not Given ACHS [facility] Protocol Insulin Detemir 15 units 01/22/19 22:00 01/27/19 06:15 Levemir Vial SQ 15 units BID@0700,2200 [facility] Administration Metoprolol Succinate 50 mg 01/16/19 07:00 01/27/19 06:14 Toprol Xl - PO 50 mg AM [facility] Administration Promethazine HCl 12.5 mg 01/15/19 16:50 Phenergan Injection - IVPB Q6H PRN NAUSEA AND/OR VOMITING Tamsulosin HCl 0.4 mg 01/16/19 08:30 01/26/19 08:10 Flomax - PO 0.4 mg DAILY@0830 [facility] Administration ASSESSMENT/PLAN:Patient is a 59 year old male with past medical history of IDDM , HTN, HLD, PAD, CAD s/p PCI, CKD, presented to the ED with 1 day history of left lower extremity pain. # Cellulitis left leg. Getting better less induration leg appears to be better still have fever blood culture sent yesterday pending on vanco and meropenem crp reduced leg elevation wound culture growing mrsa id on case #Elevated BNP -BNP 4724, likely 2/2 CKD -No SOB, No evidence of congestion on CXR, # tray on CKD cr getting better 1.9 base line cr 1.43 #, IDDM BGM sliding scale sugar running in 125 levemir 15 bid #HTN toprol xl 50 daily #FEN -Not on any standing fluids -Routine bmp monitoring -Diabetic/Sodium controlled diet #Prophylaxis -Heparin 5000units sq tid #Disposition -full code -med surg Visit type - Emergency Visit Emergency Visit: Yes ED Registration Date: 01/13/19 Care time: The patient presented to the Emergency Department on the above date and was hospitalized for further evaluation of their emergent condition. - New Patient This patient is new to me today: No - Critical Care Critical Care patient: No
[2019-01-27] MEDS ORDERED: PT OWN MED DRAWER 7, Y5N ONE ×2 (09:48→21:22)
[2019-01-27 09:52] LABS: BASO % 0.5 % (0-2.0); EOS % 0.9 % (0-4.5); HEMATOCRIT 23.9 % (35.4-49); HEMOGLOBIN 8.2 GM/dL (11.7-16.9); LYMPH % 10.9 % (8-40); MCH 28.5 pg (25.7-33.7); MCHC 34.3 g/dl (32.0-35.9); MEAN CELL VOLUME 83.2 fl (80-96); MEAN PLT VOLUME 7.6 fl (7.5-11.1); MONO % 8.8 % (3.8-10.2); NEUT % 78.9 % (42.8-82.8); PLATELET COUNT 532 K/MM3 (134-434); RBC 2.87 M/mm3 (4.00-5.60)
[2019-01-27] MEDS: TAMSULOSIN HCL 0.4 MG CAP PO SCH (10:23)
[2019-01-27] MEDS: ASPIRIN 81 MG CHEWABLE TABLETS PO SCH (10:23)
[2019-01-27] MEDS: MEROPENEM 1 GM in DEXTROSE 5%-WATER 100 ML IVPB SCH ×2 (10:24→21:30)
[2019-01-27] MEDS: BACITRACIN 15 GM TUBE TOPICAL OINTMENT TP SCH (10:24)
[2019-01-27] MEDS: AMINO ACIDS/PROTEIN HYDROLYS 30 ML LIQUID.PKT PO SCH ×2 (10:24→17:04)
[2019-01-27 10:25] LABS: ANION GAP 8 MMOL/L (8-16); BLOOD UREA NITROGEN 38 mg/dL (7-18); CALCIUM 7.7 mg/dL (8.5-10.1); CHLORIDE 107 mmol/L (98-107); CO2 22 mmol/L (21-32); CREATININE 1.8 mg/dL (0.55-1.3); GLUCOSE,RANDOM 135 mg/dL (74-106); POTASSIUM 5.1 mmol/L (3.5-5.1); SODIUM 137 mmol/L (136-145)
[2019-01-27] MEDS ORDERED: INSULIN (NOVOLOG) ASPART 100 UNITS/ML 10ML VIAL ONE ×2 (11:31→21:22)
[2019-01-27] MEDS: VANCOMYCIN 1 GRAM (PRE-DOCKED) 1,000 MG/250 ML BAG IVPB SCH (12:10)
--- NOTE | 2019-01-27 13:19 | PN ---
Progress Note, Physician History of Present Illness: Pt seen and examined at bedside. He is awake and alert. He denies fevers or chills. - Current Medication List Current Medications: Active Medications Acetaminophen (Tylenol -) 650 mg PO Q6H PRN PRN Reason: FEVER Last Admin: 01/27/19 04:00 Dose: 650 mg Amino Acids (Prosource No Carb Liquid Pkt) 30 ml PO BID@0800,1730 [facility] Last Admin: 01/27/19 10:24 Dose: 30 ml Aspirin (Asa -) 81 mg PO DAILY [facility] Last Admin: 01/27/19 10:23 Dose: 81 mg Atorvastatin Calcium (Lipitor -) 20 mg PO HS [facility] Last Admin: 01/26/19 21:58 Dose: 20 mg Bacitracin (Bacitracin -) 1 applic TP DAILY [facility] Last Admin: 01/27/19 10:24 Dose: 1 applic Clopidogrel Bisulfate (Plavix -) 75 mg PO AM [facility] Last Admin: 01/27/19 06:14 Dose: 75 mg Heparin Sodium (Porcine) (Heparin -) 5,000 unit SQ TID [facility] Last Admin: 01/27/19 06:15 Dose: 5,000 unit Vancomycin HCl (Vancomycin (Pre-Docked)) 1,000 mg in 250 mls @ 200 mls/hr IVPB DAILY@1200 [facility]; Protocol Last Admin: 01/27/19 12:10 Dose: 200 mls/hr Meropenem 1 gm/ Dextrose 100 mls @ 200 mls/hr IVPB Q12H [facility] Last Admin: 01/27/19 10:24 Dose: 200 mls/hr Insulin Aspart (Novolog Vial Sliding Scale -) 1 vial SQ ACHS [facility]; Protocol Last Admin: 01/27/19 11:35 Dose: 4 units Insulin Detemir (Levemir Vial) 15 units SQ BID@0700,2200 [facility] Last Admin: 01/27/19 06:15 Dose: 15 units Metoprolol Succinate (Toprol Xl -) 50 mg PO AM [facility] Last Admin: 01/27/19 06:14 Dose: 50 mg Promethazine HCl (Phenergan Injection -) 12.5 mg IVPB Q6H PRN PRN Reason: NAUSEA AND/OR VOMITING Tamsulosin HCl (Flomax -) 0.4 mg PO DAILY@0830 [facility] Last Admin: 01/27/19 10:23 Dose: 0.4 mg - Objective Vital Signs: Vital Signs Temperature 99.7 F H 01/27/19 10:20 Pulse Rate 90 01/27/19 10:20 Respiratory Rate 18 01/27/19 10:20 Blood Pressure 118/56 L 01/27/19 10:20 O2 Sat by Pulse Oximetry (%) 98 01/26/19 21:00 Constitutional: Yes: Calm Eyes: Yes: Conjunctiva Clear HENT: Yes: Atraumatic Neck: Yes: Supple Cardiovascular: Yes: S1, S2 Respiratory: Yes: CTA Bilaterally Gastrointestinal: Yes: Soft Genitourinary: Yes: WNL Edema: Yes Edema: LLE: 1+ Neurological: Yes: Oriented Psychiatric: Yes: Oriented Labs: CBC, BMP 01/27/19 09:10 01/27/19 09:10 Problem List - Problems (1) AMADOU (acute kidney injury) Code(s): N17.9 - ACUTE KIDNEY FAILURE, UNSPECIFIED (2) CHF (congestive heart failure) Code(s): I50.9 - HEART FAILURE, UNSPECIFIED Qualifiers: Heart failure type: unspecified Qualified Code(s): I50.9 - Heart failure, unspecified (3) CKD (chronic kidney disease) Code(s): N18.9 - CHRONIC KIDNEY DISEASE, UNSPECIFIED Qualifiers: Chronic kidney disease stage: stage 3 (moderate) Qualified Code(s): N18.3 - Chronic kidney disease, stage 3 (moderate) (4) HTN (hypertension) Code(s): I10 - ESSENTIAL (PRIMARY) HYPERTENSION Qualifiers: Hypertension type: essential hypertension Qualified Code(s): I10 - Essential (primary) hypertension (5) IDDM (insulin dependent diabetes mellitus) Code(s): E11.9 - TYPE 2 DIABETES MELLITUS WITHOUT COMPLICATIONS; Z79.4 - MCFP (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 OF INSULIN (6) Left leg pain Code(s): M79.605 - PAIN IN LEFT LEG Assessment/Plan Current Medications Generic Name Dose Route Start Last Admin Trade Name Freq PRN Reason Stop Dose Admin Acetaminophen 650 mg 01/25/19 15:01 01/27/19 04:00 Tylenol - PO 650 mg Q6H PRN Administration FEVER Amino Acids 30 ml 01/25/19 17:30 01/27/19 10:24 Prosource No Carb Liquid Pkt PO 30 ml BID@0800,1730 [facility] Administration Aspirin 81 mg 01/15/19 10:00 01/27/19 10:23 Asa - PO 81 mg DAILY [facility] Administration Atorvastatin Calcium 20 mg 01/15/19 22:00 01/26/19 21:58 Lipitor - PO 20 mg HS [facility] Administration Bacitracin 1 applic 01/18/19 11:45 01/27/19 10:24 Bacitracin - TP 1 applic DAILY [facility] Administration Clopidogrel Bisulfate 75 mg 01/16/19 07:00 01/27/19 06:14 Plavix - PO 75 mg AM [facility] Administration Heparin Sodium (Porcine) 5,000 unit 01/15/19 14:00 01/27/19 06:15 Heparin - SQ 5,000 unit TID [facility] Administration Vancomycin HCl 1,000 mg in 250 mls @ 200 mls/hr 01/21/19 12:00 01/27/19 12:10 Vancomycin (Pre-Docked) IVPB 200 mls/hr DAILY@1200 [facility] Administration Protocol Meropenem 1 gm/ Dextrose 100 mls @ 200 mls/hr 01/22/19 22:00 01/27/19 10:24 IVPB 200 mls/hr Q12H [facility] Administration Insulin Aspart 1 vial 01/15/19 11:00 01/27/19 11:35 Novolog Vial Sliding Scale - SQ 4 units ACHS [facility] Administration Protocol Insulin Detemir 15 units 01/22/19 22:00 01/27/19 06:15 Levemir Vial SQ 15 units BID@0700,2200 [facility] Administration Metoprolol Succinate 50 mg 01/16/19 07:00 01/27/19 06:14 Toprol Xl - PO 50 mg AM [facility] Administration Promethazine HCl 12.5 mg 01/15/19 16:50 Phenergan Injection - IVPB Q6H PRN NAUSEA AND/OR VOMITING Tamsulosin HCl 0.4 mg 01/16/19 08:30 01/27/19 10:23 Flomax - PO 0.4 mg DAILY@0830 [facility] Administration Impression 1. AMADOU 2. lower ext edema 3. leg pain 4. HTN 5. DM 6. CKD 7. large post void residual 8. cellulitis 9. sepsis Plan - renal function stabilizing - abx per ID - will cont to monitor renal function - wound care to leg - avoid nsaids - amadou likely in part from sepsis
--- NOTE | 2019-01-27 13:33 | PN ---
Progress Note, Physician History of Present Illness: stable leg looks better no complaints - Current Medication List Current Medications: Active Medications Acetaminophen (Tylenol -) 650 mg PO Q6H PRN PRN Reason: FEVER Last Admin: 01/27/19 04:00 Dose: 650 mg Amino Acids (Prosource No Carb Liquid Pkt) 30 ml PO BID@0800,1730 [facility] Last Admin: 01/27/19 10:24 Dose: 30 ml Aspirin (Asa -) 81 mg PO DAILY [facility] Last Admin: 01/27/19 10:23 Dose: 81 mg Atorvastatin Calcium (Lipitor -) 20 mg PO HS [facility] Last Admin: 01/26/19 21:58 Dose: 20 mg Bacitracin (Bacitracin -) 1 applic TP DAILY [facility] Last Admin: 01/27/19 10:24 Dose: 1 applic Clopidogrel Bisulfate (Plavix -) 75 mg PO AM [facility] Last Admin: 01/27/19 06:14 Dose: 75 mg Heparin Sodium (Porcine) (Heparin -) 5,000 unit SQ TID [facility] Last Admin: 01/27/19 06:15 Dose: 5,000 unit Vancomycin HCl (Vancomycin (Pre-Docked)) 1,000 mg in 250 mls @ 200 mls/hr IVPB DAILY@1200 [facility]; Protocol Last Admin: 01/27/19 12:10 Dose: 200 mls/hr Meropenem 1 gm/ Dextrose 100 mls @ 200 mls/hr IVPB Q12H [facility] Last Admin: 01/27/19 10:24 Dose: 200 mls/hr Insulin Aspart (Novolog Vial Sliding Scale -) 1 vial SQ ACHS [facility]; Protocol Last Admin: 01/27/19 11:35 Dose: 4 units Insulin Detemir (Levemir Vial) 15 units SQ BID@0700,2200 [facility] Last Admin: 01/27/19 06:15 Dose: 15 units Metoprolol Succinate (Toprol Xl -) 50 mg PO AM [facility] Last Admin: 01/27/19 06:14 Dose: 50 mg Promethazine HCl (Phenergan Injection -) 12.5 mg IVPB Q6H PRN PRN Reason: NAUSEA AND/OR VOMITING Tamsulosin HCl (Flomax -) 0.4 mg PO DAILY@0830 [facility] Last Admin: 01/27/19 10:23 Dose: 0.4 mg - Objective Vital Signs: Vital Signs Temperature 99.7 F H 01/27/19 10:20 Pulse Rate 90 01/27/19 10:20 Respiratory Rate 18 01/27/19 10:20 Blood Pressure 118/56 L 01/27/19 10:20 O2 Sat by Pulse Oximetry (%) 98 01/26/19 21:00 Constitutional: Yes: No Distress, Calm Cardiovascular: Yes: Regular Rate and Rhythm Respiratory: Yes: Regular, CTA Bilaterally Gastrointestinal: Yes: Normal Bowel Sounds, Soft Musculoskeletal: Yes: Other Extremities: Yes: Other Wound/Incision: Yes: Dressing Dry and Intact Neurological: Yes: Alert, Oriented Psychiatric: Yes: Alert, Oriented Labs: CBC, BMP 01/27/19 09:10 01/27/19 09:10 Assessment/Plan Problem List - Problems (1) Left leg pain Code(s): M79.605 - PAIN IN LEFT LEG (2) AMADOU (acute kidney injury) Code(s): N17.9 - ACUTE KIDNEY FAILURE, UNSPECIFIED (3) CKD (chronic kidney disease) Code(s): N18.9 - CHRONIC KIDNEY DISEASE, UNSPECIFIED Qualifiers: Chronic kidney disease stage: stage 2 (mild) Qualified Code(s): N18.2 - Chronic kidney disease, stage 2 (mild) (4) HTN (hypertension) Code(s): I10 - ESSENTIAL (PRIMARY) HYPERTENSION Qualifiers: Hypertension type: essential hypertension Qualified Code(s): I10 - Essential (primary) hypertension (5) IDDM (insulin dependent diabetes mellitus) Code(s): E11.9 - TYPE 2 DIABETES MELLITUS WITHOUT COMPLICATIONS; Z79.4 - FINANCIAL ANALYSIS ADVISOR (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 OF INSULIN 6 leukocytosis plan continue abx wound care close watch on swelling rest as per the team
--- NOTE | 2019-01-27 16:33 | PN ---
Teaching Attending Note Name of Resident: Jean-Paul Steve ATTENDING PHYSICIAN STATEMENT I saw and evaluated the patient. I reviewed the resident's note and discussed the case with the resident. I agree with the resident's findings and plan as documented. SUBJECTIVE: Mr Mike complains of LLE pain. Denies cp, sob, n/v OBJECTIVE: Last Vital Signs Temp Pulse Resp BP Pulse Ox 37.6 C 91 H 18 114/57 L 98 01/27/19 15:25 01/27/19 15:25 01/27/19 10:20 01/27/19 15:25 01/27/19 10:35 Gen: nad, obese Pulm: ctab w/o w/r/r CV: rrr w/o m/r/g Abd: +bs, s/nt/nd Ext: LLE edema CBC, BMP 01/27/19 09:10 01/27/19 09:10 ASSESSMENT AND PLAN: -case d/w Dr Espinoza -leg has worsened -also has remained febrile -continue vancomycin and merrem -restart clindamycin for toxin prevention -repeat duplex dopplers -monitor glucose, may need to increase insulin -renal function slowly improving Problem List - Problems (1) Left leg pain Code(s): M79.605 - PAIN IN LEFT LEG (2) AMADOU (acute kidney injury) Code(s): N17.9 - ACUTE KIDNEY FAILURE, UNSPECIFIED (3) CKD (chronic kidney disease) Code(s): N18.9 - CHRONIC KIDNEY DISEASE, UNSPECIFIED Qualifiers: Chronic kidney disease stage: stage 3 (moderate) Qualified Code(s): N18.3 - Chronic kidney disease, stage 3 (moderate) (4) HTN (hypertension) Code(s): I10 - ESSENTIAL (PRIMARY) HYPERTENSION Qualifiers: Hypertension type: essential hypertension Qualified Code(s): I10 - Essential (primary) hypertension (5) IDDM (insulin dependent diabetes mellitus) Code(s): E11.9 - TYPE 2 DIABETES MELLITUS WITHOUT COMPLICATIONS; Z79.4 - INSURANCE AGENT (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 OF INSULIN
[2019-01-27] MEDS: CLINDAMYCIN 600MG PREMIX IVPB 600 MG/50 ML BAG IVPB SCH (17:04)
[2019-01-27] MEDS: ATORVASTATIN CA 20 MG TABLET (FP) PO SCH (21:30)
[2019-01-28] MEDS: CLINDAMYCIN 600MG PREMIX IVPB 600 MG/50 ML BAG IVPB SCH ×3 (01:46→18:29)
[2019-01-28] MEDS: ACETAMINOPHEN 325 MG TABLET (FP) PO PRN ×3 (02:40→21:43)
[2019-01-28] MEDS: CLOPIDOGREL BISULFATE 75 MG TABLET (FP) PO SCH (06:19)
[2019-01-28] MEDS: HEPARIN NA (PORCINE) 5,000 UNITS/ML 1ML VIAL SQ SCH ×3 (06:19→21:43)
[2019-01-28] MEDS: INSULIN SLIDING SCALE (NOVOLOG) 1 VIAL SQ SCH ×4 (06:21→21:46)
[2019-01-28] MEDS: INSULIN (LEVEMIR) 100 UNITS/ML UNITS SQ SCH ×2 (06:21→21:46)
[2019-01-28] MEDS ORDERED: INSULIN (NOVOLOG) ASPART 100 UNITS/ML 10ML VIAL ONE ×3 (06:29→21:34)
[2019-01-28 07:58] LABS: BASO % 0.5 % (0-2.0); EOS % 1.6 % (0-4.5); HEMATOCRIT 20.8 % (35.4-49); HEMOGLOBIN 7.1 GM/dL (11.7-16.9); LYMPH % 12.1 % (8-40); MCH 28.7 pg (25.7-33.7); MCHC 34.3 g/dl (32.0-35.9); MEAN CELL VOLUME 83.5 fl (80-96); MEAN PLT VOLUME 7.5 fl (7.5-11.1); MONO % 8.8 % (3.8-10.2); PLATELET COUNT 474 K/MM3 (134-434); RBC 2.49 M/mm3 (4.00-5.60); RDW 15.1 % (11.9-15.9); WHITE BLOOD COUNT 8.5 K/mm3 (4.0-10.0)
[2019-01-28 08:11] LABS: ANION GAP 6 MMOL/L (8-16); BLOOD UREA NITROGEN 39 mg/dL (7-18); CALCIUM 7.4 mg/dL (8.5-10.1); CHLORIDE 109 mmol/L (98-107); CO2 22 mmol/L (21-32); CREATININE 1.6 mg/dL (0.55-1.3); GLUCOSE,RANDOM 198 mg/dL (74-106); POTASSIUM 4.5 mmol/L (3.5-5.1); SODIUM 137 mmol/L (136-145)
[2019-01-28] MEDS: AMINO ACIDS/PROTEIN HYDROLYS 30 ML LIQUID.PKT PO SCH ×2 (08:55→16:37)
[2019-01-28] MEDS ORDERED: PT OWN MED DRAWER 7, Y5N ONE (09:21)
[2019-01-28] MEDS: ASPIRIN 81 MG CHEWABLE TABLETS PO SCH (09:29)
[2019-01-28] MEDS: RANITIDINE HCL 150 MG TABLET (FP) PO SCH ×2 (09:29→21:41)
[2019-01-28] MEDS: TAMSULOSIN HCL 0.4 MG CAP PO SCH (09:29)
[2019-01-28] MEDS: BACITRACIN 15 GM TUBE TOPICAL OINTMENT TP SCH (09:30)
[2019-01-28] MEDS: MEROPENEM 1 GM in DEXTROSE 5%-WATER 100 ML IVPB SCH ×2 (09:30→21:47)
[2019-01-28 10:15] LABS: ACTIVATED PTT 32.9 SECONDS (25.2-36.5)
[2019-01-28 10:40] LABS: INR 1.19 (0.83-1.09); PROTHROMBIN TIME (PATIENT) 14.1 SEC (9.7-13.0)
--- NOTE | 2019-01-28 10:50 | PN ---
Teaching Attending Note Name of Resident: Jean-Paul Steve ATTENDING PHYSICIAN STATEMENT I saw and evaluated the patient. I reviewed the resident's note and discussed the case with the resident. I agree with the resident's findings and plan as documented. SUBJECTIVE: Mr Mendez says he is feeling better. Says his leg is not having pain today. Denies cp, sob, n/v. OBJECTIVE: Last Vital Signs Temp Pulse Resp BP Pulse Ox 37.4 C 90 20 129/64 97 01/28/19 05:19 01/28/19 05:19 01/28/19 05:19 01/28/19 05:19 01/27/19 21:00 Gen: nad, obese Pulm: ctab w/o w/r/r CV: rrr w/o m/r/g Abd: +bs, s/nt/nd Ext: 2+ LLE edema CBC, BMP 01/28/19 06:00 01/28/19 06:00 ASSESSMENT AND PLAN: -remains febrile but leukocytosis has resolved -patient also states is feeling better -continue antibiotics currently -consider possible antibiotic fever if patient continues to improve but has fevers -follow up ultrasound -renal function continues to improve, nephrology following -continue current management Problem List - Problems (1) Left leg pain Code(s): M79.605 - PAIN IN LEFT LEG (2) AMADOU (acute kidney injury) Code(s): N17.9 - ACUTE KIDNEY FAILURE, UNSPECIFIED (3) CKD (chronic kidney disease) Code(s): N18.9 - CHRONIC KIDNEY DISEASE, UNSPECIFIED Qualifiers: Chronic kidney disease stage: stage 3 (moderate) Qualified Code(s): N18.3 - Chronic kidney disease, stage 3 (moderate) (4) HTN (hypertension) Code(s): I10 - ESSENTIAL (PRIMARY) HYPERTENSION Qualifiers: Hypertension type: essential hypertension Qualified Code(s): I10 - Essential (primary) hypertension (5) IDDM (insulin dependent diabetes mellitus) Code(s): E11.9 - TYPE 2 DIABETES MELLITUS WITHOUT COMPLICATIONS; Z79.4 - LONG-TERM (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 OF INSULIN
[2019-01-28] MEDS: VANCOMYCIN 1 GRAM (PRE-DOCKED) 1,000 MG/250 ML BAG IVPB SCH (12:40)
--- NOTE | 2019-01-28 14:10 | PN ---
Progress Note, Physician History of Present Illness: Pt seen and examined at bedside. He is awake and alert. He denies dysuria or hematuria. - Current Medication List Current Medications: Active Medications Acetaminophen (Tylenol -) 650 mg PO Q6H PRN PRN Reason: FEVER Last Admin: 01/28/19 02:40 Dose: 650 mg Amino Acids (Prosource No Carb Liquid Pkt) 30 ml PO BID@0800,1730 [facility] Last Admin: 01/28/19 08:55 Dose: 30 ml Aspirin (Asa -) 81 mg PO DAILY [facility] Last Admin: 01/28/19 09:29 Dose: 81 mg Atorvastatin Calcium (Lipitor -) 20 mg PO HS [facility] Last Admin: 01/27/19 21:30 Dose: 20 mg Bacitracin (Bacitracin -) 1 applic TP DAILY [facility] Last Admin: 01/28/19 09:30 Dose: 1 applic Clopidogrel Bisulfate (Plavix -) 75 mg PO AM [facility] Last Admin: 01/28/19 06:19 Dose: 75 mg Heparin Sodium (Porcine) (Heparin -) 5,000 unit SQ TID [facility] Last Admin: 01/28/19 06:19 Dose: 5,000 unit IV Flush (Triple Lumen Flush) 4 ml IVPUSH PRN PRN PRN Reason: Protocol Vancomycin HCl (Vancomycin (Pre-Docked)) 1,000 mg in 250 mls @ 200 mls/hr IVPB DAILY@1200 [facility]; Protocol Last Admin: 01/28/19 12:40 Dose: 200 mls/hr Meropenem 1 gm/ Dextrose 100 mls @ 200 mls/hr IVPB Q12H [facility] Last Admin: 01/28/19 09:30 Dose: 200 mls/hr Clindamycin Phosphate (Cleocin 600 Mg Premix Ivpb -) 600 mg in 50 mls @ 100 mls /hr IVPB Q8H-IV [facility]; Protocol Last Admin: 01/28/19 09:30 Dose: 100 mls/hr Insulin Aspart (Novolog Vial Sliding Scale -) 1 vial SQ ACHS [facility]; Protocol Last Admin: 01/28/19 12:40 Dose: 8 units Insulin Detemir (Levemir Vial) 15 units SQ BID@0700,2200 [facility] Last Admin: 01/28/19 06:21 Dose: 15 units Metoprolol Succinate (Toprol Xl -) 50 mg PO AM [facility] Last Admin: 03/07/19 06:19 Dose: 50 mg Promethazine HCl (Phenergan Injection -) 12.5 mg IVPB Q6H PRN PRN Reason: NAUSEA AND/OR VOMITING Ranitidine HCl (Zantac -) 150 mg PO BID [facility] Last Admin: 01/28/19 09:29 Dose: 150 mg Tamsulosin HCl (Flomax -) 0.4 mg PO DAILY@0830 [facility] Last Admin: 01/28/19 09:29 Dose: 0.4 mg - Objective Vital Signs: Vital Signs Temperature 99.4 F 01/28/19 05:19 Pulse Rate 90 01/28/19 05:19 Respiratory Rate 20 01/28/19 05:19 Blood Pressure 129/64 01/28/19 05:19 O2 Sat by Pulse Oximetry (%) 97 01/27/19 21:00 Constitutional: Yes: Calm Eyes: Yes: Conjunctiva Clear HENT: Yes: Atraumatic Neck: Yes: Supple Cardiovascular: Yes: S1, S2 Respiratory: Yes: CTA Bilaterally Gastrointestinal: Yes: Normal Bowel Sounds, Soft Genitourinary: Yes: WNL Edema: Yes Edema: LLE: 1+ Neurological: Yes: Oriented Psychiatric: Yes: Oriented Labs: CBC, BMP 01/28/19 06:00 01/28/19 06:00 INR, PTT INR 1.19 (0.83-1.09) H 01/28/19 09:20 Problem List - Problems (1) AMADOU (acute kidney injury) Code(s): N17.9 - ACUTE KIDNEY FAILURE, UNSPECIFIED (2) CHF (congestive heart failure) Code(s): I50.9 - HEART FAILURE, UNSPECIFIED Qualifiers: Heart failure type: unspecified Qualified Code(s): I50.9 - Heart failure, unspecified (3) CKD (chronic kidney disease) Code(s): N18.9 - CHRONIC KIDNEY DISEASE, UNSPECIFIED Qualifiers: Chronic kidney disease stage: stage 3 (moderate) Qualified Code(s): N18.3 - Chronic kidney disease, stage 3 (moderate) (4) HTN (hypertension) Code(s): I10 - ESSENTIAL (PRIMARY) HYPERTENSION Qualifiers: Hypertension type: essential hypertension Qualified Code(s): I10 - Essential (primary) hypertension (5) IDDM (insulin dependent diabetes mellitus) Code(s): E11.9 - TYPE 2 DIABETES MELLITUS WITHOUT COMPLICATIONS; Z79.4 - CARE HOME (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 OF INSULIN (6) Left leg pain Code(s): M79.605 - PAIN IN LEFT LEG Assessment/Plan Current Medications Generic Name Dose Route Start Last Admin Trade Name Freq PRN Reason Stop Dose Admin Acetaminophen 650 mg 01/25/19 15:01 01/28/19 02:40 Tylenol - PO 650 mg Q6H PRN Administration FEVER Amino Acids 30 ml 01/25/19 17:30 01/28/19 08:55 Prosource No Carb Liquid Pkt PO 30 ml BID@0800,1730 [facility] Administration Aspirin 81 mg 01/15/19 10:00 01/28/19 09:29 Asa - PO 81 mg DAILY [facility] Administration Atorvastatin Calcium 20 mg 01/15/19 22:00 01/27/19 21:30 Lipitor - PO 20 mg HS [facility] Administration Bacitracin 1 applic 01/18/19 11:45 01/28/19 09:30 Bacitracin - TP 1 applic DAILY [facility] Administration Clopidogrel Bisulfate 75 mg 01/16/19 07:00 01/28/19 06:19 Plavix - PO 75 mg AM [facility] Administration Heparin Sodium (Porcine) 5,000 unit 01/15/19 14:00 01/28/19 06:19 Heparin - SQ 5,000 unit TID [facility] Administration IV Flush 4 ml 01/28/19 08:56 Triple Lumen Flush IVPUSH PRN PRN Protocol Vancomycin HCl 1,000 mg in 250 mls @ 200 mls/hr 01/21/19 12:00 01/28/19 12:40 Vancomycin (Pre-Docked) IVPB 200 mls/hr DAILY@1200 [facility] Administration Protocol Meropenem 1 gm/ Dextrose 100 mls @ 200 mls/hr 01/22/19 22:00 01/28/19 09:30 IVPB 200 mls/hr Q12H [facility] Administration Clindamycin Phosphate 600 mg in 50 mls @ 100 mls/hr 01/27/19 15:15 01/28/19 09:30 Cleocin 600 Mg Premix Ivpb - IVPB 100 mls/hr Q8H-IV [facility] Administration Protocol Insulin Aspart 1 vial 01/15/19 11:00 01/28/19 12:40 Novolog Vial Sliding Scale - SQ 8 units ACHS [facility] Administration Protocol Insulin Detemir 15 units 01/22/19 22:00 01/28/19 06:21 Levemir Vial SQ 15 units BID@0700,2200 [facility] Administration Metoprolol Succinate 50 mg 01/16/19 07:00 01/28/19 06:19 Toprol Xl - PO 50 mg AM [facility] Administration Promethazine HCl 12.5 mg 01/15/19 16:50 Phenergan Injection - IVPB Q6H PRN NAUSEA AND/OR VOMITING Ranitidine HCl 150 mg 01/28/19 10:00 01/28/19 09:29 Zantac - PO 150 mg BID [facility] Administration Tamsulosin HCl 0.4 mg 01/16/19 08:30 01/28/19 09:29 Flomax - PO 0.4 mg DAILY@0830 [facility] Administration Impression 1. AMADOU 2. lower ext edema 3. leg pain 4. HTN 5. DM 6. CKD 7. large post void residual 8. cellulitis 9. sepsis Plan - cont to monitor renal function - function has been improving - abx per ID - wound care to leg - avoid nsaids - anemia management per primary team - amadou likely in part from sepsis
--- NOTE | 2019-01-28 14:57 | PN ---
Progress Note, Physician History of Present Illness: patient still with some fevers though trending down after addition of clinda calf again has become more tenser as well as the thigh patient got the u/s of the thigh - Current Medication List Current Medications: Active Medications Acetaminophen (Tylenol -) 650 mg PO Q6H PRN PRN Reason: FEVER Last Admin: 01/28/19 02:40 Dose: 650 mg Amino Acids (Prosource No Carb Liquid Pkt) 30 ml PO BID@0800,1730 [facility] Last Admin: 01/28/19 08:55 Dose: 30 ml Aspirin (Asa -) 81 mg PO DAILY [facility] Last Admin: 01/28/19 09:29 Dose: 81 mg Atorvastatin Calcium (Lipitor -) 20 mg PO HS [facility] Last Admin: 01/27/19 21:30 Dose: 20 mg Bacitracin (Bacitracin -) 1 applic TP DAILY [facility] Last Admin: 01/28/19 09:30 Dose: 1 applic Clopidogrel Bisulfate (Plavix -) 75 mg PO AM [facility] Last Admin: 01/28/19 06:19 Dose: 75 mg Heparin Sodium (Porcine) (Heparin -) 5,000 unit SQ TID [facility] Last Admin: 01/28/19 06:19 Dose: 5,000 unit IV Flush (Triple Lumen Flush) 4 ml IVPUSH PRN PRN PRN Reason: Protocol Vancomycin HCl (Vancomycin (Pre-Docked)) 1,000 mg in 250 mls @ 200 mls/hr IVPB DAILY@1200 [facility]; Protocol Last Admin: 01/28/19 12:40 Dose: 200 mls/hr Meropenem 1 gm/ Dextrose 100 mls @ 200 mls/hr IVPB Q12H [facility] Last Admin: 01/28/19 09:30 Dose: 200 mls/hr Clindamycin Phosphate (Cleocin 600 Mg Premix Ivpb -) 600 mg in 50 mls @ 100 mls /hr IVPB Q8H-IV [facility]; Protocol Last Admin: 01/28/19 09:30 Dose: 100 mls/hr Insulin Aspart (Novolog Vial Sliding Scale -) 1 vial SQ ACHS [facility]; Protocol Last Admin: 01/28/19 12:40 Dose: 8 units Insulin Detemir (Levemir Vial) 15 units SQ BID@0700,2200 [facility] Last Admin: 01/28/19 06:21 Dose: 15 units Metoprolol Succinate (Toprol Xl -) 50 mg PO AM [facility] Last Admin: 01/28/19 06:19 Dose: 50 mg Promethazine HCl (Phenergan Injection -) 12.5 mg IVPB Q6H PRN PRN Reason: NAUSEA AND/OR VOMITING Ranitidine HCl (Zantac -) 150 mg PO BID [facility] Last Admin: 01/28/19 09:29 Dose: 150 mg Tamsulosin HCl (Flomax -) 0.4 mg PO DAILY@0830 [facility] Last Admin: 01/28/19 09:29 Dose: 0.4 mg - Objective Vital Signs: Vital Signs Temperature 99.4 F 01/28/19 05:19 Pulse Rate 90 01/28/19 05:19 Respiratory Rate 20 01/28/19 05:19 Blood Pressure 129/64 01/28/19 05:19 O2 Sat by Pulse Oximetry (%) 97 01/27/19 21:00 Constitutional: Yes: Calm, Mild Distress Cardiovascular: Yes: Regular Rate and Rhythm Respiratory: Yes: Regular, CTA Bilaterally Gastrointestinal: Yes: Normal Bowel Sounds, Soft Musculoskeletal: Yes: WNL Extremities: Yes: Other (swelling of the thigh as well as calf,still tense) Integumentary: Yes: Other Wound/Incision: Yes: Dressing Dry and Intact Neurological: Yes: Alert, Oriented Psychiatric: Yes: Alert, Oriented Labs: CBC, BMP 01/28/19 06:00 01/28/19 06:00 INR, PTT INR 1.19 (0.83-1.09) H 01/28/19 09:20 Assessment/Plan Problem List - Problems (1) Left leg pain Code(s): M79.605 - PAIN IN LEFT LEG (2) AMADOU (acute kidney injury) Code(s): N17.9 - ACUTE KIDNEY FAILURE, UNSPECIFIED (3) CKD (chronic kidney disease) Code(s): N18.9 - CHRONIC KIDNEY DISEASE, UNSPECIFIED Qualifiers: Chronic kidney disease stage: stage 2 (mild) Qualified Code(s): N18.2 - Chronic kidney disease, stage 2 (mild) (4) HTN (hypertension) Code(s): I10 - ESSENTIAL (PRIMARY) HYPERTENSION Qualifiers: Hypertension type: essential hypertension Qualified Code(s): I10 - Essential (primary) hypertension (5) IDDM (insulin dependent diabetes mellitus) Code(s): E11.9 - TYPE 2 DIABETES MELLITUS WITHOUT COMPLICATIONS; Z79.4 - [facility] (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 OF INSULIN 6 leukocytosis patient started to improve plan continue abx await for u/s results close monitoring monitor for fevers rest as per the team
--- NOTE | 2019-01-28 17:19 | PN ---
Physical Exam: SUBJECTIVE: Patient seen and examined had couple of episodes of fever leg thigh looks better calf still have shiny skin pt states he feels better denies bleeding per rectum OBJECTIVE: Vital Signs Period Temp Pulse Resp BP Sys/Cano Pulse Ox Last 24 Hr 98.4 F-102.7 F 80-100 19-20 117-134/50-76 97 GENERAL: The patient is awake, alert, and fully oriented, in no acute distress. HEAD: Normal with no signs of trauma. EYES: PERRL, extraocular movements intact, sclera anicteric, conjunctiva clear. ENT: dry mucous membranes. NECK: Trachea midline, full range of motion, supple. LUNGS: Breath sounds equal, clear to auscultation bilaterally, no wheezes, no crackles, no accessory muscle use. HEART: Regular rate and rhythm, S1, S2 ABDOMEN: Soft, nontender, nondistended, normoactive bowel sounds, no guarding, no rebound, EXTREMITIES: left leg edema and induration getting better, edema in dorsum of foot decreased. wrinkles present on skin PSYCH: Normal mood, SKIN: Warm, dry, Laboratory Results - last 24 hr 01/27/19 01/28/19 01/28/19 21:28 06:00 06:00 WBC 8.5 RBC 2.49 L Hgb 7.1 L Hct 20.8 L MCV 83.5 MCH 28.7 MCHC 34.3 RDW 15.1 Plt Count 474 H MPV 7.5 Absolute Neuts (auto) 6.5 Neutrophils % 77.0 Lymphocytes % 12.1 Monocytes % 8.8 Eosinophils % 1.6 Basophils % 0.5 Nucleated RBC % 0 PT with INR INR PTT (Actin FS) Sodium Potassium Chloride Carbon Dioxide Anion Gap BUN Creatinine Creat Clearance w eGFR POC Glucometer 217 Random Glucose Calcium Vitamin B12 Serum Folate Random Vancomycin 18.5 01/28/19 01/28/19 01/28/19 06:00 06:04 09:20 WBC RBC Hgb Hct MCV MCH MCHC RDW Plt Count MPV Absolute Neuts (auto) Neutrophils % Lymphocytes % Monocytes % Eosinophils % Basophils % Nucleated RBC % PT with INR 14.10 H INR 1.19 H PTT (Actin FS) 32.9 Sodium 137 Potassium 4.5 Chloride 109 H Carbon Dioxide 22 Anion Gap 6 L BUN 39 H Creatinine 1.6 H Creat Clearance w eGFR 44.16 POC Glucometer 221 Random Glucose 198 H Calcium 7.4 L Vitamin B12 1793 H Serum Folate 5 Random Vancomycin 01/28/19 01/28/19 12:39 16:04 WBC RBC Hgb Hct MCV MCH MCHC RDW Plt Count MPV Absolute Neuts (auto) Neutrophils % Lymphocytes % Monocytes % Eosinophils % Basophils % Nucleated RBC % PT with INR INR PTT (Actin FS) Sodium Potassium Chloride Carbon Dioxide Anion Gap BUN Creatinine Creat Clearance w eGFR POC Glucometer 324 233 Random Glucose Calcium Vitamin B12 Serum Folate Random Vancomycin Active Medications Generic Name Dose Route Start Last Admin Trade Name Freq PRN Reason Stop Dose Admin Acetaminophen 650 mg 01/25/19 15:01 01/28/19 16:02 Tylenol - PO 650 mg Q6H PRN Administration FEVER Amino Acids 30 ml 01/25/19 17:30 01/28/19 16:37 Prosource No Carb Liquid Pkt PO 30 ml BID@0800,1730 [facility] Administration Aspirin 81 mg 01/15/19 10:00 01/28/19 09:29 Asa - PO 81 mg DAILY [facility] Administration Atorvastatin Calcium 20 mg 01/15/19 22:00 01/27/19 21:30 Lipitor - PO 20 mg HS [facility] Administration Bacitracin 1 applic 01/18/19 11:45 01/28/19 09:30 Bacitracin - TP 1 applic DAILY [facility] Administration Clopidogrel Bisulfate 75 mg 01/16/19 07:00 01/28/19 06:19 Plavix - PO 75 mg AM [facility] Administration Heparin Sodium (Porcine) 5,000 unit 01/15/19 14:00 01/28/19 15:47 Heparin - SQ 5,000 unit TID [facility] Administration IV Flush 4 ml 01/28/19 08:56 Triple Lumen Flush IVPUSH PRN PRN Protocol Vancomycin HCl 1,000 mg in 250 mls @ 200 mls/hr 01/21/19 12:00 01/28/19 12:40 Vancomycin (Pre-Docked) IVPB 200 mls/hr DAILY@1200 [facility] Administration Protocol Meropenem 1 gm/ Dextrose 100 mls @ 200 mls/hr 01/22/19 22:00 01/28/19 09:30 IVPB 200 mls/hr Q12H [facility] Administration Clindamycin Phosphate 600 mg in 50 mls @ 100 mls/hr 01/27/19 15:15 01/28/19 09:30 Cleocin 600 Mg Premix Ivpb - IVPB 100 mls/hr Q8H-IV [facility] Administration Protocol Insulin Aspart 1 vial 01/15/19 11:00 01/28/19 16:36 Novolog Vial Sliding Scale - SQ 4 units ACHS [facility] Administration Protocol Insulin Detemir 15 units 01/22/19 22:00 01/28/19 06:21 Levemir Vial SQ 15 units BID@0700,2200 [facility] Administration Metoprolol Succinate 50 mg 01/16/19 07:00 01/28/19 06:19 Toprol Xl - PO 50 mg AM [facility] Administration Promethazine HCl 12.5 mg 01/15/19 16:50 Phenergan Injection - IVPB Q6H PRN NAUSEA AND/OR VOMITING Ranitidine HCl 150 mg 01/28/19 10:00 01/28/19 09:29 Zantac - PO 150 mg BID [facility] Administration Tamsulosin HCl 0.4 mg 01/16/19 08:30 01/28/19 09:29 Flomax - PO 0.4 mg DAILY@0830 [facility] Administration ASSESSMENT/PLAN:Patient is a 59 year old male with past medical history of IDDM , HTN, HLD, PAD, CAD s/p PCI, CKD, presented to the ED with 1 day history of left lower extremity pain. # Cellulitis left leg. Getting better less induration blood cultures no growth wound culture mrsa pt on clinda, benson, vanco still having fever. usg leg shows edema no collection we will get abdomen usg and will cget central line change if every thing comes out normal pt can have antibiotic associated fever as he is on antibiotics from 15 days. echo was done on 01/15 and pt has no murmur, cxr didnt show any infiltrate-- pt is on spirometer anemia hb dropped significantly over the hospital course and pt morse also got one unit of blood on 01/23/19 pt denies blood in stool. HI done no blood seen , stool; for occult blood sent. we will get iron studies vitamin b12 elevated folic acid normal pt is on plavix, aspirin, and sq heparin also on zantac for gi prophylaxis #Elevated BNP -BNP 4724, likely 2/2 CKD -No SOB, No evidence of congestion on CXR, # tray on CKD cr getting better 1.6 base line cr 1.43 #, IDDM BGM sliding scale sugar running in 125 levemir 15 bid #HTN toprol xl 50 daily #FEN -Not on any standing fluids -Routine bmp monitoring -Diabetic/Sodium controlled diet #Prophylaxis -Heparin 5000units sq tid #Disposition -full code -med surg Visit type - Emergency Visit Emergency Visit: Yes ED Registration Date: 01/13/19 Care time: The patient presented to the Emergency Department on the above date and was hospitalized for further evaluation of their emergent condition. - New Patient This patient is new to me today: No - Critical Care Critical Care patient: No
[2019-01-28] MEDS: ATORVASTATIN CA 20 MG TABLET (FP) PO SCH (21:41)
[2019-01-29] MEDS: CLINDAMYCIN 600MG PREMIX IVPB 600 MG/50 ML BAG IVPB SCH ×3 (01:52→17:39)
[2019-01-29 04:15] LABS: SERUM IRON SATURATION 9 % (15-55); TOTAL IRON BINDING CAPACITY 156 ug/dL (250-450); UIBC 142 ug/dL (111-343)
[2019-01-29] MEDS: INSULIN (LEVEMIR) 100 UNITS/ML UNITS SQ SCH ×2 (06:11→23:10)
[2019-01-29] MEDS: HEPARIN NA (PORCINE) 5,000 UNITS/ML 1ML VIAL SQ SCH ×3 (06:11→23:10)
[2019-01-29] MEDS: INSULIN SLIDING SCALE (NOVOLOG) 1 VIAL SQ SCH ×4 (06:11→23:11)
[2019-01-29] MEDS: CLOPIDOGREL BISULFATE 75 MG TABLET (FP) PO SCH (06:12)
[2019-01-29] MEDS: ACETAMINOPHEN 325 MG TABLET (FP) PO PRN ×2 (06:12→23:12)
[2019-01-29] MEDS ORDERED: INSULIN (NOVOLOG) ASPART 100 UNITS/ML 10ML VIAL ONE ×2 (06:21→21:04)
[2019-01-29 06:50] LABS: BASO % 0.6 % (0-2.0); HEMATOCRIT 21.9 % (35.4-49); HEMOGLOBIN 7.6 GM/dL (11.7-16.9); LYMPH % 12.4 % (8-40); MCH 29.1 pg (25.7-33.7); MCHC 34.6 g/dl (32.0-35.9); MEAN CELL VOLUME 84.2 fl (80-96); MEAN PLT VOLUME 7.5 fl (7.5-11.1); MONO % 9.3 % (3.8-10.2); NEUT % 75.7 % (42.8-82.8); PLATELET COUNT 498 K/MM3 (134-434); WHITE BLOOD COUNT 8.2 K/mm3 (4.0-10.0)
[2019-01-29 08:10] LABS: ALBUMIN 1.5 g/dl (3.4-5.0); ALK PHOS 69 U/L (45-117); ANION GAP 7 MMOL/L (8-16); BILIRUBIN,TOTAL 0.5 mg/dL (0.2-1); BLOOD UREA NITROGEN 46 mg/dL (7-18); CALCIUM 8.2 mg/dL (8.5-10.1); CHLORIDE 107 mmol/L (98-107); CO2 22 mmol/L (21-32); GLUCOSE,RANDOM 121 mg/dL (74-106); POTASSIUM 5.1 mmol/L (3.5-5.1); SGOT/AST 17 U/L (15-37); SGPT/ALT 11 U/L (13-61); SODIUM 136 mmol/L (136-145); TOT PROT 6.6 g/dl (6.4-8.2)
--- NOTE | 2019-01-29 09:07 | PN ---
Physical Exam: SUBJECTIVE: Patient seen and examined pt states he feels better. States his leg look better but pt is still spiking fever. Pt will get his central line change today. he will also get ultrasound abdomen keep leg elevated. OBJECTIVE: Vital Signs Period Temp Pulse Resp BP Sys/Cano Pulse Ox Last 24 Hr 99.3 F-102.7 F 80-100 20-20 117-134/50-80 96 GENERAL: The patient is awake, alert, and fully oriented, in no acute distress. HEAD: Normal with no signs of trauma. EYES: PERRL, extraocular movements intact, sclera anicteric, conjunctiva clear. ENT: dry mucous membranes. NECK: Trachea midline, full range of motion, supple. LUNGS: Breath sounds equal, clear to auscultation bilaterally, no wheezes, no crackles, no accessory muscle use. HEART: Regular rate and rhythm, S1, S2 ABDOMEN: Soft, nontender, nondistended, normoactive bowel sounds, no guarding, no rebound, EXTREMITIES: left leg edema and induration getting better, edema in dorsum of foot decreased. wrinkles present on skin PSYCH: Normal mood, SKIN: Warm, dry, Laboratory Results - last 24 hr 01/28/19 01/28/19 01/28/19 06:00 06:00 09:20 WBC RBC Hgb Hct MCV MCH MCHC RDW Plt Count MPV Absolute Neuts (auto) Neutrophils % Lymphocytes % Monocytes % Eosinophils % Basophils % Nucleated RBC % PT with INR 14.10 H INR 1.19 H PTT (Actin FS) 32.9 Sodium 137 Potassium 4.5 Chloride 109 H Carbon Dioxide 22 Anion Gap 6 L BUN 39 H Creatinine 1.6 H Creat Clearance w eGFR 44.16 POC Glucometer Random Glucose 198 H Calcium 7.4 L Phosphorus Magnesium Iron 14 L TIBC 156 L Iron Saturation 9 L Total Bilirubin AST ALT Alkaline Phosphatase C-Reactive Protein Total Protein Albumin Vitamin B12 1793 H Serum Folate 5 Stool Occult Blood 01/28/19 01/28/19 01/28/19 12:39 15:00 16:04 WBC RBC Hgb Hct MCV MCH MCHC RDW Plt Count MPV Absolute Neuts (auto) Neutrophils % Lymphocytes % Monocytes % Eosinophils % Basophils % Nucleated RBC % PT with INR INR PTT (Actin FS) Sodium Potassium Chloride Carbon Dioxide Anion Gap BUN Creatinine Creat Clearance w eGFR POC Glucometer 324 233 Random Glucose Calcium Phosphorus Magnesium Iron TIBC Iron Saturation Total Bilirubin AST ALT Alkaline Phosphatase C-Reactive Protein Total Protein Albumin Vitamin B12 Serum Folate Stool Occult Blood Negative 01/28/19 01/29/19 01/29/19 21:40 05:40 05:40 WBC 8.2 RBC 2.60 L Hgb 7.6 L Hct 21.9 L MCV 84.2 MCH 29.1 MCHC 34.6 RDW 15.0 Plt Count 498 H MPV 7.5 Absolute Neuts (auto) 6.2 Neutrophils % 75.7 Lymphocytes % 12.4 Monocytes % 9.3 Eosinophils % 2.0 Basophils % 0.6 Nucleated RBC % 0 PT with INR INR PTT (Actin FS) Sodium 136 Potassium 5.1 Chloride 107 Carbon Dioxide 22 Anion Gap 7 L BUN 46 H Creatinine 2.0 H Creat Clearance w eGFR 34.14 POC Glucometer 200 Random Glucose 121 H Calcium 8.2 L Phosphorus 4.0 Magnesium 2.0 Iron TIBC Iron Saturation Total Bilirubin 0.5 AST 17 ALT 11 L Alkaline Phosphatase 69 C-Reactive Protein Total Protein 6.6 Albumin 1.5 L Vitamin B12 Serum Folate Stool Occult Blood 01/29/19 01/29/19 05:40 06:10 WBC RBC Hgb Hct MCV MCH MCHC RDW Plt Count MPV Absolute Neuts (auto) Neutrophils % Lymphocytes % Monocytes % Eosinophils % Basophils % Nucleated RBC % PT with INR INR PTT (Actin FS) Sodium Potassium Chloride Carbon Dioxide Anion Gap BUN Creatinine Creat Clearance w eGFR POC Glucometer 130 Random Glucose Calcium Phosphorus Magnesium Iron TIBC Iron Saturation Total Bilirubin AST ALT Alkaline Phosphatase C-Reactive Protein 12.6 H Total Protein Albumin Vitamin B12 Serum Folate Stool Occult Blood Active Medications Generic Name Dose Route Start Last Admin Trade Name Freq PRN Reason Stop Dose Admin Acetaminophen 650 mg 01/25/19 15:01 01/29/19 06:12 Tylenol - PO 650 mg Q6H PRN Administration FEVER Amino Acids 30 ml 01/25/19 17:30 01/28/19 16:37 Prosource No Carb Liquid Pkt PO 30 ml BID@0800,1730 [facility] Administration Aspirin 81 mg 01/15/19 10:00 01/28/19 09:29 Asa - PO 81 mg DAILY [facility] Administration Atorvastatin Calcium 20 mg 01/15/19 22:00 01/28/19 21:41 Lipitor - PO 20 mg HS [facility] Administration Bacitracin 1 applic 01/18/19 11:45 01/28/19 09:30 Bacitracin - TP 1 applic DAILY [facility] Administration Clopidogrel Bisulfate 75 mg 01/16/19 07:00 01/29/19 06:12 Plavix - PO 75 mg AM [facility] Administration Folic Acid 1 mg 01/29/19 10:00 Folic Acid - PO DAILY [facility] Heparin Sodium (Porcine) 5,000 unit 01/15/19 14:00 01/29/19 06:11 Heparin - SQ 5,000 unit TID [facility] Administration IV Flush 4 ml 01/28/19 08:56 Triple Lumen Flush IVPUSH PRN PRN Protocol Vancomycin HCl 1,000 mg in 250 mls @ 200 mls/hr 01/21/19 12:00 01/28/19 12:40 Vancomycin (Pre-Docked) IVPB 200 mls/hr DAILY@1200 [facility] Administration Protocol Meropenem 1 gm/ Dextrose 100 mls @ 200 mls/hr 01/22/19 22:00 01/28/19 21:47 IVPB 200 mls/hr Q12H [facility] Administration Clindamycin Phosphate 600 mg in 50 mls @ 100 mls/hr 01/27/19 15:15 01/29/19 01:52 Cleocin 600 Mg Premix Ivpb - IVPB 100 mls/hr Q8H-IV [facility] Administration Protocol Iron Sucrose 300 mg/ Sodium 250 mls @ 250 mls/hr 01/29/19 09:03 Chloride IVPB 01/29/19 10:02 ONCE ONE Insulin Aspart 1 vial 01/15/19 11:00 01/29/19 06:11 Novolog Vial Sliding Scale - SQ Not Given ACHS [facility] Protocol Insulin Detemir 15 units 01/22/19 22:00 01/29/19 06:11 Levemir Vial SQ 15 units BID@0700,2200 [facility] Administration Metoprolol Succinate 50 mg 01/16/19 07:00 01/29/19 06:12 Toprol Xl - PO 50 mg AM [facility] Administration Promethazine HCl 12.5 mg 01/15/19 16:50 Phenergan Injection - IVPB Q6H PRN NAUSEA AND/OR VOMITING Ranitidine HCl 150 mg 01/28/19 10:00 01/28/19 21:41 Zantac - PO 150 mg BID [facility] Administration Tamsulosin HCl 0.4 mg 01/16/19 08:30 01/28/19 09:29 Flomax - PO 0.4 mg DAILY@0830 [facility] Administration ASSESSMENT/PLAN:Patient is a 59 year old male with past medical history of IDDM , HTN, HLD, PAD, CAD s/p PCI, CKD, presented to the ED with 1 day history of left lower extremity pain. # Cellulitis left leg. Getting better less induration blood cultures no growth urine culture pending wound culture mrsa pt on clinda, benson, vanco still having fever. usg leg shows edema no collection we will get abdomen usg and will cget central line change if every thing comes out normal pt can have antibiotic associated fever as he is on antibiotics from 15 days. echo was done on 01/15 and pt has no murmur, cxr didn't show any infiltrate-- pt is on spirometer anemia hb dropped significantly over the hospital course and pt morse also got one unit of blood on 01/23/19 pt denies blood in stool. SC done no blood seen , stool for occult negative vitamin b12 elevated started on iron and folic acid pt is on plavix, aspirin, and sq heparin also on zantac for gi prophylaxis #Elevated BNP -BNP 4724, likely 2/2 CKD -No SOB, No evidence of congestion on CXR, # tray on CKD cr got worse today 2.0 <----1.6 nephrology on case base line cr 1.43 #, IDDM: well controlled in hospital BGM sliding scale sugar running in 125 levemir 15 bid #HTN toprol xl 50 daily #FEN -Not on any standing fluids -Routine bmp monitoring -Diabetic/Sodium controlled diet #Prophylaxis -Heparin 5000units sq tid #Disposition -full code -med surg Visit type - Emergency Visit Emergency Visit: Yes ED Registration Date: 01/13/19 Care time: The patient presented to the Emergency Department on the above date and was hospitalized for further evaluation of their emergent condition. - New Patient This patient is new to me today: No - Critical Care Critical Care patient: No
[2019-01-29] MEDS ORDERED: IRON SUCROSE INJECTION 300 MG in SODIUM CHLORIDE 235 ML IVPB ONE (10:00)
--- NOTE | 2019-01-29 11:01 | PN ---
Progress Note, Physician History of Present Illness: started to spike fevers again patient going for change of central line leg looks more swollen also calf looks more swollen and tender - Current Medication List Current Medications: Active Medications Acetaminophen (Tylenol -) 650 mg PO Q6H PRN PRN Reason: FEVER Last Admin: 01/29/19 06:12 Dose: 650 mg Amino Acids (Prosource No Carb Liquid Pkt) 30 ml PO BID@0800,1730 [facility] Last Admin: 01/28/19 16:37 Dose: 30 ml Aspirin (Asa -) 81 mg PO DAILY [facility] Last Admin: 01/28/19 09:29 Dose: 81 mg Atorvastatin Calcium (Lipitor -) 20 mg PO HS [facility] Last Admin: 01/28/19 21:41 Dose: 20 mg Bacitracin (Bacitracin -) 1 applic TP DAILY [facility] Last Admin: 01/28/19 09:30 Dose: 1 applic Clopidogrel Bisulfate (Plavix -) 75 mg PO AM [facility] Last Admin: 01/29/19 06:12 Dose: 75 mg Folic Acid (Folic Acid -) 1 mg PO DAILY [facility] Heparin Sodium (Porcine) (Heparin -) 5,000 unit SQ TID [facility] Last Admin: 01/29/19 06:11 Dose: 5,000 unit IV Flush (Triple Lumen Flush) 4 ml IVPUSH PRN PRN PRN Reason: Protocol Vancomycin HCl (Vancomycin (Pre-Docked)) 1,000 mg in 250 mls @ 200 mls/hr IVPB DAILY@1200 [facility]; Protocol Last Admin: 01/28/19 12:40 Dose: 200 mls/hr Meropenem 1 gm/ Dextrose 100 mls @ 200 mls/hr IVPB Q12H [facility] Last Admin: 01/28/19 21:47 Dose: 200 mls/hr Clindamycin Phosphate (Cleocin 600 Mg Premix Ivpb -) 600 mg in 50 mls @ 100 mls /hr IVPB Q8H-IV [facility]; Protocol Last Admin: 01/29/19 01:52 Dose: 100 mls/hr Iron Sucrose 300 mg/ Sodium (Chloride) 250 mls @ 166.667 mls/hr IVPB ONCE ONE Stop: 01/29/19 11:29 Insulin Aspart (Novolog Vial Sliding Scale -) 1 vial SQ ACHS [facility]; Protocol Last Admin: 01/29/19 06:11 Dose: Not Given Insulin Detemir (Levemir Vial) 15 units SQ BID@0700,2200 [facility] Last Admin: 01/29/19 06:11 Dose: 15 units Metoprolol Succinate (Toprol Xl -) 50 mg PO AM [facility] Last Admin: 01/29/19 06:12 Dose: 50 mg Promethazine HCl (Phenergan Injection -) 12.5 mg IVPB Q6H PRN PRN Reason: NAUSEA AND/OR VOMITING Ranitidine HCl (Zantac -) 150 mg PO BID [facility] Last Admin: 01/28/19 21:41 Dose: 150 mg Tamsulosin HCl (Flomax -) 0.4 mg PO DAILY@0830 [facility] Last Admin: 01/28/19 09:29 Dose: 0.4 mg - Objective Vital Signs: Vital Signs Temperature 101.4 F H 01/29/19 05:00 Pulse Rate 86 01/29/19 05:00 Respiratory Rate 20 01/29/19 05:00 Blood Pressure 134/80 01/29/19 05:00 O2 Sat by Pulse Oximetry (%) 96 01/28/19 21:00 Constitutional: Yes: Calm, Mild Distress Cardiovascular: Yes: Regular Rate and Rhythm Respiratory: Yes: Regular, CTA Bilaterally Gastrointestinal: Yes: Normal Bowel Sounds, Soft Musculoskeletal: Yes: Other Extremities: Yes: Other (swelling of calf and thigh) Wound/Incision: Yes: Dressing Dry and Intact Neurological: Yes: Alert, Oriented Psychiatric: Yes: Alert, Oriented Labs: CBC, BMP 01/29/19 05:40 01/29/19 05:40 INR, PTT INR 1.19 (0.83-1.09) H 01/28/19 09:20 Assessment/Plan Problem List - Problems (1) Left leg pain Code(s): M79.605 - PAIN IN LEFT LEG (2) AMADOU (acute kidney injury) Code(s): N17.9 - ACUTE KIDNEY FAILURE, UNSPECIFIED (3) CKD (chronic kidney disease) Code(s): N18.9 - CHRONIC KIDNEY DISEASE, UNSPECIFIED Qualifiers: Chronic kidney disease stage: stage 2 (mild) Qualified Code(s): N18.2 - Chronic kidney disease, stage 2 (mild) (4) HTN (hypertension) Code(s): I10 - ESSENTIAL (PRIMARY) HYPERTENSION Qualifiers: Hypertension type: essential hypertension Qualified Code(s): I10 - Essential (primary) hypertension (5) IDDM (insulin dependent diabetes mellitus) Code(s): E11.9 - TYPE 2 DIABETES MELLITUS WITHOUT COMPLICATIONS; Z79.4 - LONGTERM (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 OF INSULIN 6 leukocytosis plan continue abx change of central line monitor fevers rest as per the team
[2019-01-29 11:16] LABS: RATIO URIN PROTEIN/URIN CREAT 1.96 MG/DL
[2019-01-29 12:03] LABS: URINE APPEARANCE SLCLOUDY; URINE BILIRUBIN NEGATIVE (<2.0 mg/dL); URINE COLOR YELLOW; URINE GLUCOSE (UA) 1+ (NEGATIVE); URINE KETONE NEGATIVE (NEGATIVE); URINE LEUK ESTERASE NEGATIVE (NEGATIVE); URINE NITRITE NEGATIVE (NEGATIVE); URINE PROTEIN 2+ (NEGATIVE); URINE UROBILINOGEN NEGATIVE mg/dL (0.2-1.0)
[2019-01-29 12:20] LABS: EPI CELLS RARE /HPF (FEW); GRANULAR CASTS 4 /lpf
[2019-01-29] MEDS: FOLIC ACID 1 MG TABLET (FP) PO SCH (13:29)
[2019-01-29] MEDS: AMINO ACIDS/PROTEIN HYDROLYS 30 ML LIQUID.PKT PO SCH ×2 (13:29→16:29)
[2019-01-29] MEDS: TAMSULOSIN HCL 0.4 MG CAP PO SCH (13:29)
[2019-01-29] MEDS: RANITIDINE HCL 150 MG TABLET (FP) PO SCH ×2 (13:29→23:11)
[2019-01-29] MEDS: ASPIRIN 81 MG CHEWABLE TABLETS PO SCH (13:30)
[2019-01-29] MEDS: BACITRACIN 15 GM TUBE TOPICAL OINTMENT TP SCH (13:30)
[2019-01-29] MEDS: VANCOMYCIN 1 GRAM (PRE-DOCKED) 1,000 MG/250 ML BAG IVPB SCH (13:32)
[2019-01-29] MEDS: MEROPENEM 1 GM in DEXTROSE 5%-WATER 100 ML IVPB SCH ×2 (13:32→23:10)
--- NOTE | 2019-01-29 14:29 | PN ---
Progress Note, Physician History of Present Illness: Pt seen and examined at bedside. He is awake and alert. He denies dysuria. - Current Medication List Current Medications: Active Medications Acetaminophen (Tylenol -) 650 mg PO Q6H PRN PRN Reason: FEVER Last Admin: 01/29/19 06:12 Dose: 650 mg Amino Acids (Prosource No Carb Liquid Pkt) 30 ml PO BID@0800,1730 [facility] Last Admin: 01/29/19 13:29 Dose: 30 ml Aspirin (Asa -) 81 mg PO DAILY [facility] Last Admin: 01/29/19 13:30 Dose: 81 mg Atorvastatin Calcium (Lipitor -) 20 mg PO HS [facility] Last Admin: 01/28/19 21:41 Dose: 20 mg Bacitracin (Bacitracin -) 1 applic TP DAILY [facility] Last Admin: 01/29/19 13:30 Dose: 1 applic Clopidogrel Bisulfate (Plavix -) 75 mg PO AM [facility] Last Admin: 01/29/19 06:12 Dose: 75 mg Folic Acid (Folic Acid -) 1 mg PO DAILY [facility] Last Admin: 01/29/19 13:29 Dose: 1 mg Heparin Sodium (Porcine) (Heparin -) 5,000 unit SQ TID [facility] Last Admin: 01/29/19 06:11 Dose: 5,000 unit IV Flush (Triple Lumen Flush) 4 ml IVPUSH PRN PRN PRN Reason: Protocol Vancomycin HCl (Vancomycin (Pre-Docked)) 1,000 mg in 250 mls @ 200 mls/hr IVPB DAILY@1200 [facility]; Protocol Last Admin: 01/29/19 13:32 Dose: 200 mls/hr Meropenem 1 gm/ Dextrose 100 mls @ 200 mls/hr IVPB Q12H [facility] Last Admin: 01/29/19 13:32 Dose: 200 mls/hr Clindamycin Phosphate (Cleocin 600 Mg Premix Ivpb -) 600 mg in 50 mls @ 100 mls /hr IVPB Q8H-IV [facility]; Protocol Last Admin: 01/29/19 13:28 Dose: 100 mls/hr Insulin Aspart (Novolog Vial Sliding Scale -) 1 vial SQ ACHS [facility]; Protocol Last Admin: 01/29/19 06:11 Dose: Not Given Insulin Detemir (Levemir Vial) 15 units SQ BID@0700,2200 [facility] Last Admin: 01/29/19 06:11 Dose: 15 units Metoprolol Succinate (Toprol Xl -) 50 mg PO AM [facility] Last Admin: 01/29/19 06:12 Dose: 50 mg Promethazine HCl (Phenergan Injection -) 12.5 mg IVPB Q6H PRN PRN Reason: NAUSEA AND/OR VOMITING Ranitidine HCl (Zantac -) 150 mg PO BID [facility] Last Admin: 01/29/19 13:29 Dose: 150 mg Tamsulosin HCl (Flomax -) 0.4 mg PO DAILY@0830 [facility] Last Admin: 01/29/19 13:29 Dose: 0.4 mg - Objective Vital Signs: Vital Signs Temperature 98.5 F 01/29/19 13:55 Pulse Rate 94 H 01/29/19 13:55 Respiratory Rate 22 H 01/29/19 13:55 Blood Pressure 128/68 01/29/19 13:55 O2 Sat by Pulse Oximetry (%) 96 01/28/19 21:00 Constitutional: Yes: Calm Eyes: Yes: Conjunctiva Clear HENT: Yes: Atraumatic Neck: Yes: Supple Cardiovascular: Yes: S1, S2 Respiratory: Yes: CTA Bilaterally Gastrointestinal: Yes: Soft Genitourinary: Yes: WNL Musculoskeletal: Yes: WNL Extremities: Yes: WNL Edema: LLE: 1+ Neurological: Yes: Oriented Psychiatric: Yes: Oriented Labs: CBC, BMP 01/29/19 05:40 01/29/19 05:40 INR, PTT INR 1.19 (0.83-1.09) H 01/28/19 09:20 Problem List - Problems (1) AMADOU (acute kidney injury) Code(s): N17.9 - ACUTE KIDNEY FAILURE, UNSPECIFIED (2) CHF (congestive heart failure) Code(s): I50.9 - HEART FAILURE, UNSPECIFIED Qualifiers: Heart failure type: unspecified Qualified Code(s): I50.9 - Heart failure, unspecified (3) CKD (chronic kidney disease) Code(s): N18.9 - CHRONIC KIDNEY DISEASE, UNSPECIFIED Qualifiers: Chronic kidney disease stage: stage 3 (moderate) Qualified Code(s): N18.3 - Chronic kidney disease, stage 3 (moderate) (4) HTN (hypertension) Code(s): I10 - ESSENTIAL (PRIMARY) HYPERTENSION Qualifiers: Hypertension type: essential hypertension Qualified Code(s): I10 - Essential (primary) hypertension (5) IDDM (insulin dependent diabetes mellitus) Code(s): E11.9 - TYPE 2 DIABETES MELLITUS WITHOUT COMPLICATIONS; Z79.4 - FDC (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 OF INSULIN (6) Left leg pain Code(s): M79.605 - PAIN IN LEFT LEG Assessment/Plan Current Medications Generic Name Dose Route Start Last Admin Trade Name Freq PRN Reason Stop Dose Admin Acetaminophen 650 mg 01/25/19 15:01 01/29/19 06:12 Tylenol - PO 650 mg Q6H PRN Administration FEVER Amino Acids 30 ml 01/25/19 17:30 01/29/19 13:29 Prosource No Carb Liquid Pkt PO 30 ml BID@0800,1730 [facility] Administration Aspirin 81 mg 01/15/19 10:00 01/29/19 13:30 Asa - PO 81 mg DAILY [facility] Administration Atorvastatin Calcium 20 mg 01/15/19 22:00 01/28/19 21:41 Lipitor - PO 20 mg HS [facility] Administration Bacitracin 1 applic 01/18/19 11:45 01/29/19 13:30 Bacitracin - TP 1 applic DAILY [facility] Administration Clopidogrel Bisulfate 75 mg 01/16/19 07:00 01/29/19 06:12 Plavix - PO 75 mg AM [facility] Administration Folic Acid 1 mg 01/29/19 10:00 01/29/19 13:29 Folic Acid - PO 1 mg DAILY [facility] Administration Heparin Sodium (Porcine) 5,000 unit 01/15/19 14:00 01/29/19 06:11 Heparin - SQ 5,000 unit TID [facility] Administration IV Flush 4 ml 01/28/19 08:56 Triple Lumen Flush IVPUSH PRN PRN Protocol Vancomycin HCl 1,000 mg in 250 mls @ 200 mls/hr 01/21/19 12:00 01/29/19 13:32 Vancomycin (Pre-Docked) IVPB 200 mls/hr DAILY@1200 [facility] Administration Protocol Meropenem 1 gm/ Dextrose 100 mls @ 200 mls/hr 01/22/19 22:00 01/29/19 13:32 IVPB 200 mls/hr Q12H [facility] Administration Clindamycin Phosphate 600 mg in 50 mls @ 100 mls/hr 01/27/19 15:15 01/29/19 13:28 Cleocin 600 Mg Premix Ivpb - IVPB 100 mls/hr Q8H-IV [facility] Administration Protocol Insulin Aspart 1 vial 01/15/19 11:00 01/29/19 06:11 Novolog Vial Sliding Scale - SQ Not Given ACHS [facility] Protocol Insulin Detemir 15 units 01/22/19 22:00 01/29/19 06:11 Levemir Vial SQ 15 units BID@0700,2200 [facility] Administration Metoprolol Succinate 50 mg 01/16/19 07:00 01/29/19 06:12 Toprol Xl - PO 50 mg AM [facility] Administration Promethazine HCl 12.5 mg 01/15/19 16:50 Phenergan Injection - IVPB Q6H PRN NAUSEA AND/OR VOMITING Ranitidine HCl 150 mg 01/28/19 10:00 01/29/19 13:29 Zantac - PO 150 mg BID [facility] Administration Tamsulosin HCl 0.4 mg 01/16/19 08:30 01/29/19 13:29 Flomax - PO 0.4 mg DAILY@0830 [facility] Administration Impression 1. AMADOU 2. lower ext edema 3. leg pain 4. HTN 5. DM 6. CKD 7. large post void residual 8. cellulitis 9. sepsis Plan - repeat labs in a - check bladder scan - abx per ID - wound care to leg - avoid nsaids - anemia management per primary team - amadou likely in part from sepsis
--- NOTE | 2019-01-29 14:59 | PN ---
Teaching Attending Note Name of Resident: Jean-Paul Steve ATTENDING PHYSICIAN STATEMENT I saw and evaluated the patient. I reviewed the resident's note and discussed the case with the resident. I agree with the resident's findings and plan as documented. SUBJECTIVE: Mr Mendez says his leg feels a little better today. Pain is improving. Denies cp, sob, n/v. OBJECTIVE: Last Vital Signs Temp Pulse Resp BP Pulse Ox 36.9 C 94 H 22 H 128/68 96 01/29/19 13:55 01/29/19 13:55 01/29/19 13:55 01/29/19 13:55 01/28/19 21:00 Gen: nad, obese Pulm: ctab w/o w/r/r CV: rrr w/o m/r/g Abd: +bs, s/nt/nd Ext: 2+ LLE edema, slightly improved CBC, BMP 01/29/19 05:40 01/29/19 05:40 ASSESSMENT AND PLAN: -central line changed today -case d/w Dr Valle 2/2 worsening renal function -monitor currently -continue antibiotics per ID -continue current management Problem List - Problems (1) Left leg pain Code(s): M79.605 - PAIN IN LEFT LEG (2) AMADOU (acute kidney injury) Code(s): N17.9 - ACUTE KIDNEY FAILURE, UNSPECIFIED (3) CKD (chronic kidney disease) Code(s): N18.9 - CHRONIC KIDNEY DISEASE, UNSPECIFIED Qualifiers: Chronic kidney disease stage: stage 3 (moderate) Qualified Code(s): N18.3 - Chronic kidney disease, stage 3 (moderate) (4) HTN (hypertension) Code(s): I10 - ESSENTIAL (PRIMARY) HYPERTENSION Qualifiers: Hypertension type: essential hypertension Qualified Code(s): I10 - Essential (primary) hypertension (5) IDDM (insulin dependent diabetes mellitus) Code(s): E11.9 - TYPE 2 DIABETES MELLITUS WITHOUT COMPLICATIONS; Z79.4 - PRISON (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 OF INSULIN
[2019-01-29] MEDS ORDERED: PT OWN MED DRAWER 7, Y5N ONE (21:05)
[2019-01-29] MEDS: ATORVASTATIN CA 20 MG TABLET (FP) PO SCH (23:10)
[2019-01-30] MEDS: CLINDAMYCIN 600MG PREMIX IVPB 600 MG/50 ML BAG IVPB SCH ×3 (02:00→17:24)
[2019-01-30] MEDS: HEPARIN NA (PORCINE) 5,000 UNITS/ML 1ML VIAL SQ SCH ×3 (06:00→22:44)
[2019-01-30] MEDS: CLOPIDOGREL BISULFATE 75 MG TABLET (FP) PO SCH (06:00)
[2019-01-30] MEDS: INSULIN (LEVEMIR) 100 UNITS/ML UNITS SQ SCH ×2 (06:01→22:44)
[2019-01-30] MEDS: INSULIN SLIDING SCALE (NOVOLOG) 1 VIAL SQ SCH ×4 (06:09→22:44)
[2019-01-30 06:50] LABS: BASO % 0.7 % (0-2.0); HEMATOCRIT 18.3 % (35.4-49); LYMPH % 10.3 % (8-40); MCH 28.5 pg (25.7-33.7); MCHC 34.2 g/dl (32.0-35.9); MEAN CELL VOLUME 83.3 fl (80-96); MEAN PLT VOLUME 7.4 fl (7.5-11.1); MONO % 10.7 % (3.8-10.2); NEUT % 76.3 % (42.8-82.8); PLATELET COUNT 402 K/MM3 (134-434); RBC 2.19 M/mm3 (4.00-5.60); RDW 14.7 % (11.9-15.9); WHITE BLOOD COUNT 7.4 K/mm3 (4.0-10.0)
[2019-01-30 07:00] LABS: ALBUMIN 1.4 g/dl (3.4-5.0); ALK PHOS 67 U/L (45-117); ANION GAP 6 MMOL/L (8-16); BILIRUBIN,TOTAL 0.5 mg/dL (0.2-1); BLOOD UREA NITROGEN 45 mg/dL (7-18); CHLORIDE 108 mmol/L (98-107); CO2 22 mmol/L (21-32); CREATININE 1.9 mg/dL (0.55-1.3); GLUCOSE,RANDOM 114 mg/dL (74-106); POTASSIUM 4.8 mmol/L (3.5-5.1); SGOT/AST 14 U/L (15-37); SGPT/ALT 10 U/L (13-61); SODIUM 137 mmol/L (136-145); TOT PROT 6.4 g/dl (6.4-8.2)
--- NOTE | 2019-01-30 07:59 | PN ---
Progress Note (short form) - Note Progress Note: RENAL Pt is awake and alert seems comfortable slow to respond to questions Last Vital Signs Temp Pulse Resp BP Pulse Ox 99.8 F H 88 20 128/64 96 01/30/19 05:55 01/30/19 05:55 01/30/19 05:55 01/30/19 05:55 01/29/19 22:00 lungs clear cvs s1s2 rr abd soft, obese ext some ulcerations on left lower extremity associated with edema neuro awake, responds toquestions CBC, BMP 01/30/19 06:00 Current Medications Generic Name Dose Route Start Last Admin Trade Name Freq PRN Reason Stop Dose Admin Acetaminophen 650 mg 01/25/19 15:01 01/29/19 23:12 Tylenol - PO 650 mg Q6H PRN Administration FEVER Amino Acids 30 ml 01/25/19 17:30 01/29/19 16:29 Prosource No Carb Liquid Pkt PO 30 ml BID@0800,1730 [facility] Administration Aspirin 81 mg 01/15/19 10:00 01/29/19 13:30 Asa - PO 81 mg DAILY [facility] Administration Atorvastatin Calcium 20 mg 01/15/19 22:00 01/29/19 23:10 Lipitor - PO 20 mg HS [facility] Administration Bacitracin 1 applic 01/18/19 11:45 01/29/19 13:30 Bacitracin - TP 1 applic DAILY [facility] Administration Clopidogrel Bisulfate 75 mg 01/16/19 07:00 01/30/19 06:00 Plavix - PO 75 mg AM [facility] Administration Folic Acid 1 mg 01/29/19 10:00 01/29/19 13:29 Folic Acid - PO 1 mg DAILY [facility] Administration Heparin Sodium (Porcine) 5,000 unit 01/15/19 14:00 01/30/19 06:00 Heparin - SQ 5,000 unit TID [facility] Administration IV Flush 4 ml 01/28/19 08:56 Triple Lumen Flush IVPUSH PRN PRN Protocol Vancomycin HCl 1,000 mg in 250 mls @ 200 mls/hr 01/21/19 12:00 01/29/19 13:32 Vancomycin (Pre-Docked) IVPB 200 mls/hr DAILY@1200 [facility] Administration Protocol Meropenem 1 gm/ Dextrose 100 mls @ 200 mls/hr 01/22/19 22:00 01/29/19 23:10 IVPB 200 mls/hr Q12H [facility] Administration Clindamycin Phosphate 600 mg in 50 mls @ 100 mls/hr 01/27/19 15:15 01/30/19 02:00 Cleocin 600 Mg Premix Ivpb - IVPB 100 mls/hr Q8H-IV [facility] Administration Protocol Insulin Aspart 1 vial 01/15/19 11:00 01/30/19 06:09 Novolog Vial Sliding Scale - SQ Not Given ACHS [facility] Protocol Insulin Detemir 15 units 01/22/19 22:00 01/30/19 06:01 Levemir Vial SQ 15 units BID@0700,2200 [facility] Administration Metoprolol Succinate 50 mg 01/16/19 07:00 01/30/19 06:00 Toprol Xl - PO 50 mg AM [facility] Administration Promethazine HCl 12.5 mg 01/15/19 16:50 Phenergan Injection - IVPB Q6H PRN NAUSEA AND/OR VOMITING Ranitidine HCl 150 mg 01/28/19 10:00 01/29/19 23:11 Zantac - PO 150 mg BID [facility] Administration Tamsulosin HCl 0.4 mg 01/16/19 08:30 01/29/19 13:29 Flomax - PO 0.4 mg DAILY@0830 [facility] Administration Impression 1. AMADOU 2. lower ext edema with mrsa in wound 3. leg pain 4. HTN 5. DM 6. CKD 7. large post void residual 8. cellulitis 9. sepsis Plan would continue antibiotics esr is very elevated would rule out CT disease He has muscle atrophy of his hand muscles which suggests some chronicity HIV test? monitor vanco troughs MV
[2019-01-30 08:02] LABS: HEMOGLOBIN 6.3 GM/dL (11.7-16.9)
[2019-01-30] MEDS ORDERED: FUROSEMIDE 40 MG/4 ML INJECTABLE VIAL IVPUSH ONE (08:36)
[2019-01-30] MEDS: MEROPENEM 1 GM in DEXTROSE 5%-WATER 100 ML IVPB SCH ×2 (09:16→22:44)
[2019-01-30] MEDS: AMINO ACIDS/PROTEIN HYDROLYS 30 ML LIQUID.PKT PO SCH ×2 (09:19→17:24)
[2019-01-30] MEDS: BACITRACIN 15 GM TUBE TOPICAL OINTMENT TP SCH (09:19)
[2019-01-30] MEDS: ASPIRIN 81 MG CHEWABLE TABLETS PO SCH (09:19)
[2019-01-30] MEDS: TAMSULOSIN HCL 0.4 MG CAP PO SCH (09:19)
[2019-01-30] MEDS: RANITIDINE HCL 150 MG TABLET (FP) PO SCH ×2 (09:19→22:44)
[2019-01-30] MEDS: FOLIC ACID 1 MG TABLET (FP) PO SCH (09:19)
[2019-01-30] MEDS: VANCOMYCIN 1 GRAM (PRE-DOCKED) 1,000 MG/250 ML BAG IVPB SCH (11:18)
--- NOTE | 2019-01-30 11:37 | PN ---
Progress Note, Physician Chief Complaint: Mr Mendez says his leg feels fine today. Still swollen but not painful. Denies cp, sob, n/v. - Current Medication List Current Medications: Active Medications Acetaminophen (Tylenol -) 650 mg PO Q6H PRN PRN Reason: FEVER Last Admin: 01/29/19 23:12 Dose: 650 mg Amino Acids (Prosource No Carb Liquid Pkt) 30 ml PO BID@0800,1730 [facility] Last Admin: 01/30/19 09:19 Dose: 30 ml Aspirin (Asa -) 81 mg PO DAILY [facility] Last Admin: 01/30/19 09:19 Dose: 81 mg Atorvastatin Calcium (Lipitor -) 20 mg PO HS [facility] Last Admin: 01/29/19 23:10 Dose: 20 mg Bacitracin (Bacitracin -) 1 applic TP DAILY [facility] Last Admin: 01/30/19 09:19 Dose: 1 applic Clopidogrel Bisulfate (Plavix -) 75 mg PO AM [facility] Last Admin: 01/30/19 06:00 Dose: 75 mg Folic Acid (Folic Acid -) 1 mg PO DAILY [facility] Last Admin: 01/30/19 09:19 Dose: 1 mg Heparin Sodium (Porcine) (Heparin -) 5,000 unit SQ TID [facility] Last Admin: 01/30/19 06:00 Dose: 5,000 unit IV Flush (Triple Lumen Flush) 4 ml IVPUSH PRN PRN PRN Reason: Protocol Vancomycin HCl (Vancomycin (Pre-Docked)) 1,000 mg in 250 mls @ 200 mls/hr IVPB DAILY@1200 [facility]; Protocol Last Admin: 01/30/19 11:18 Dose: 200 mls/hr Meropenem 1 gm/ Dextrose 100 mls @ 200 mls/hr IVPB Q12H [facility] Last Admin: 01/30/19 09:16 Dose: 200 mls/hr Clindamycin Phosphate (Cleocin 600 Mg Premix Ivpb -) 600 mg in 50 mls @ 100 mls /hr IVPB Q8H-IV [facility]; Protocol Last Admin: 01/30/19 09:16 Dose: 100 mls/hr Insulin Aspart (Novolog Vial Sliding Scale -) 1 vial SQ ACHS [facility]; Protocol Last Admin: 01/30/19 11:00 Dose: 2 units Insulin Detemir (Levemir Vial) 15 units SQ BID@0700,2200 [facility] Last Admin: 01/30/19 06:01 Dose: 15 units Metoprolol Succinate (Toprol Xl -) 50 mg PO AM [facility] Last Admin: 01/30/19 06:00 Dose: 50 mg Promethazine HCl (Phenergan Injection -) 12.5 mg IVPB Q6H PRN PRN Reason: NAUSEA AND/OR VOMITING Ranitidine HCl (Zantac -) 150 mg PO BID [facility] Last Admin: 01/30/19 09:19 Dose: 150 mg Tamsulosin HCl (Flomax -) 0.4 mg PO DAILY@0830 [facility] Last Admin: 01/30/19 09:19 Dose: 0.4 mg - Objective Vital Signs: Vital Signs Temperature 37.7 C H 01/30/19 05:55 Pulse Rate 88 01/30/19 05:55 Respiratory Rate 20 01/30/19 05:55 Blood Pressure 128/64 01/30/19 05:55 O2 Sat by Pulse Oximetry (%) 96 01/29/19 22:00 Constitutional: Yes: No Distress, Calm, Obese Cardiovascular: Yes: Regular Rate and Rhythm. No: Gallop, Murmur, Rub Respiratory: Yes: Regular, CTA Bilaterally. No: Rales, Rhonchi, Wheezes Gastrointestinal: Yes: Normal Bowel Sounds, Soft. No: Distention, Tenderness Extremities: Yes: Other (LLE flaking) Edema: Yes Edema: LLE: 2+ Labs: CBC, BMP 01/30/19 06:00 01/30/19 06:00 INR, PTT INR 1.19 (0.83-1.09) H 01/28/19 09:20 Problem List - Problems (1) Left leg pain Code(s): M79.605 - PAIN IN LEFT LEG (2) AMADOU (acute kidney injury) Code(s): N17.9 - ACUTE KIDNEY FAILURE, UNSPECIFIED (3) CKD (chronic kidney disease) Code(s): N18.9 - CHRONIC KIDNEY DISEASE, UNSPECIFIED Qualifiers: Chronic kidney disease stage: stage 3 (moderate) Qualified Code(s): N18.3 - Chronic kidney disease, stage 3 (moderate) (4) HTN (hypertension) Code(s): I10 - ESSENTIAL (PRIMARY) HYPERTENSION Qualifiers: Hypertension type: essential hypertension Qualified Code(s): I10 - Essential (primary) hypertension (5) IDDM (insulin dependent diabetes mellitus) Code(s): E11.9 - TYPE 2 DIABETES MELLITUS WITHOUT COMPLICATIONS; Z79.4 - INTERMEDIATE (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 OF INSULIN (6) Fever Code(s): R50.9 - FEVER, UNSPECIFIED (7) Cellulitis of left lower extremity Code(s): L03.116 - CELLULITIS OF LEFT LOWER LIMB (8) Anemia Code(s): D64.9 - ANEMIA, UNSPECIFIED Assessment/Plan -H/H low -suspect AOCD -will transfuse -renal function slightly improved, nephrology following -continue antibiotics per ID -continue current management
--- NOTE | 2019-01-30 15:01 | PN ---
Progress Note, Physician History of Present Illness: says he is feeling better still with spike leg looking slightly better patient comfortable - Current Medication List Current Medications: Active Medications Acetaminophen (Tylenol -) 650 mg PO Q6H PRN PRN Reason: FEVER Last Admin: 01/29/19 23:12 Dose: 650 mg Amino Acids (Prosource No Carb Liquid Pkt) 30 ml PO BID@0800,1730 [facility] Last Admin: 01/30/19 09:19 Dose: 30 ml Aspirin (Asa -) 81 mg PO DAILY [facility] Last Admin: 01/30/19 09:19 Dose: 81 mg Atorvastatin Calcium (Lipitor -) 20 mg PO HS [facility] Last Admin: 01/29/19 23:10 Dose: 20 mg Bacitracin (Bacitracin -) 1 applic TP DAILY [facility] Last Admin: 01/30/19 09:19 Dose: 1 applic Clopidogrel Bisulfate (Plavix -) 75 mg PO AM [facility] Last Admin: 01/30/19 06:00 Dose: 75 mg Folic Acid (Folic Acid -) 1 mg PO DAILY [facility] Last Admin: 01/30/19 09:19 Dose: 1 mg Heparin Sodium (Porcine) (Heparin -) 5,000 unit SQ TID [facility] Last Admin: 01/30/19 14:37 Dose: 5,000 unit IV Flush (Triple Lumen Flush) 4 ml IVPUSH PRN PRN PRN Reason: Protocol Vancomycin HCl (Vancomycin (Pre-Docked)) 1,000 mg in 250 mls @ 200 mls/hr IVPB DAILY@1200 [facility]; Protocol Last Admin: 01/30/19 11:18 Dose: 200 mls/hr Meropenem 1 gm/ Dextrose 100 mls @ 200 mls/hr IVPB Q12H [facility] Last Admin: 01/30/19 09:16 Dose: 200 mls/hr Clindamycin Phosphate (Cleocin 600 Mg Premix Ivpb -) 600 mg in 50 mls @ 100 mls /hr IVPB Q8H-IV [facility]; Protocol Last Admin: 01/30/19 09:16 Dose: 100 mls/hr Insulin Aspart (Novolog Vial Sliding Scale -) 1 vial SQ ACHS [facility]; Protocol Last Admin: 01/30/19 11:00 Dose: 2 units Insulin Detemir (Levemir Vial) 15 units SQ BID@0700,2200 [facility] Last Admin: 01/30/19 06:01 Dose: 15 units Metoprolol Succinate (Toprol Xl -) 50 mg PO AM [facility] Last Admin: 01/30/19 06:00 Dose: 50 mg Promethazine HCl (Phenergan Injection -) 12.5 mg IVPB Q6H PRN PRN Reason: NAUSEA AND/OR VOMITING Ranitidine HCl (Zantac -) 150 mg PO BID [facility] Last Admin: 01/30/19 09:19 Dose: 150 mg Tamsulosin HCl (Flomax -) 0.4 mg PO DAILY@0830 [facility] Last Admin: 01/30/19 09:19 Dose: 0.4 mg - Objective Vital Signs: Vital Signs Temperature 99.9 F H 01/30/19 09:00 Pulse Rate 88 01/30/19 09:00 Respiratory Rate 20 01/30/19 09:00 Blood Pressure 122/58 L 01/30/19 09:00 O2 Sat by Pulse Oximetry (%) 95 01/30/19 09:00 Constitutional: Yes: No Distress, Calm, Obese Cardiovascular: Yes: Regular Rate and Rhythm Respiratory: Yes: Regular, CTA Bilaterally Gastrointestinal: Yes: Normal Bowel Sounds, Soft Musculoskeletal: Yes: WNL Extremities: Yes: Other Wound/Incision: Yes: Dressing Dry and Intact Neurological: Yes: Alert, Oriented Psychiatric: Yes: Alert, Oriented Labs: CBC, BMP 01/30/19 06:00 01/30/19 06:00 INR, PTT INR 1.19 (0.83-1.09) H 01/28/19 09:20 Assessment/Plan Problem List - Problems (1) Left leg pain Code(s): M79.605 - PAIN IN LEFT LEG (2) AMADOU (acute kidney injury) Code(s): N17.9 - ACUTE KIDNEY FAILURE, UNSPECIFIED (3) CKD (chronic kidney disease) Code(s): N18.9 - CHRONIC KIDNEY DISEASE, UNSPECIFIED Qualifiers: Chronic kidney disease stage: stage 2 (mild) Qualified Code(s): N18.2 - Chronic kidney disease, stage 2 (mild) (4) HTN (hypertension) Code(s): I10 - ESSENTIAL (PRIMARY) HYPERTENSION Qualifiers: Hypertension type: essential hypertension Qualified Code(s): I10 - Essential (primary) hypertension (5) IDDM (insulin dependent diabetes mellitus) Code(s): E11.9 - TYPE 2 DIABETES MELLITUS WITHOUT COMPLICATIONS; 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
[2019-01-30] MEDS ORDERED: FUROSEMIDE 40 MG/4 ML INJECTABLE VIAL ONE (16:24)
[2019-01-30] MEDS: TRIPLE LUMEN FLUSH 4 ML ML IVPUSH PRN (19:19)
[2019-01-30] MEDS ORDERED: INSULIN (NOVOLOG) ASPART 100 UNITS/ML 10ML VIAL ONE (21:00)
[2019-01-30] MEDS: ATORVASTATIN CA 20 MG TABLET (FP) PO SCH (22:44)
[2019-01-31] MEDS: CLINDAMYCIN 600MG PREMIX IVPB 600 MG/50 ML BAG IVPB SCH ×3 (03:11→17:07)
[2019-01-31] MEDS: HEPARIN NA (PORCINE) 5,000 UNITS/ML 1ML VIAL SQ SCH ×3 (05:32→22:12)
[2019-01-31] MEDS: ACETAMINOPHEN 325 MG TABLET (FP) PO PRN (05:32)
[2019-01-31] MEDS: TRIPLE LUMEN FLUSH 4 ML ML IVPUSH PRN (05:32)
[2019-01-31 06:28] LABS: BASO % 0.5 % (0-2.0); EOS % 2.8 % (0-4.5); HEMATOCRIT 24.5 % (35.4-49); HEMOGLOBIN 8.5 GM/dL (11.7-16.9); LYMPH % 13.6 % (8-40); MCH 29.2 pg (25.7-33.7); MCHC 34.6 g/dl (32.0-35.9); MEAN CELL VOLUME 84.4 fl (80-96); MEAN PLT VOLUME 7.5 fl (7.5-11.1); MONO % 9.9 % (3.8-10.2); NEUT % 73.2 % (42.8-82.8); PLATELET COUNT 401 K/MM3 (134-434); WHITE BLOOD COUNT 8.1 K/mm3 (4.0-10.0)
[2019-01-31] MEDS: CLOPIDOGREL BISULFATE 75 MG TABLET (FP) PO SCH (06:35)
[2019-01-31] MEDS: INSULIN SLIDING SCALE (NOVOLOG) 1 VIAL SQ SCH ×4 (06:35→22:15)
[2019-01-31] MEDS: INSULIN (LEVEMIR) 100 UNITS/ML UNITS SQ SCH ×2 (06:35→22:15)
[2019-01-31 07:30] LABS: ANION GAP 5 MMOL/L (8-16); BLOOD UREA NITROGEN 45 mg/dL (7-18); CALCIUM 7.8 mg/dL (8.5-10.1); CHLORIDE 107 mmol/L (98-107); CO2 22 mmol/L (21-32); GLUCOSE,RANDOM 187 mg/dL (74-106); MAGNESIUM 2.2 mg/dL (1.8-2.4); PHOSPHOROUS 4.5 mg/dL (2.5-4.9); POTASSIUM 4.8 mmol/L (3.5-5.1); SODIUM 135 mmol/L (136-145)
--- NOTE | 2019-01-31 08:17 | PN ---
Progress Note (short form) - Note Progress Note: RENAL Pt is awake and alert seems comfortable slow to respond to questions Last Vital Signs Temp Pulse Resp BP Pulse Ox 101.1 F H 96 H 18 131/61 97 01/31/19 05:41 01/31/19 05:41 01/31/19 05:41 01/31/19 05:41 01/30/19 21:00 lungs clear cvs s1s2 rr abd soft, obese ext some ulcerations on left lower extremity associated with edema neuro awake, responds toquestions CBC, BMP 01/31/19 05:15 01/31/19 05:15 Current Medications Generic Name Dose Route Start Last Admin Trade Name Freq PRN Reason Stop Dose Admin Acetaminophen 650 mg 01/25/19 15:01 01/31/19 05:32 Tylenol - PO 650 mg Q6H PRN Administration FEVER Amino Acids 30 ml 01/25/19 17:30 01/30/19 17:24 Prosource No Carb Liquid Pkt PO 30 ml BID@0800,1730 [facility] Administration Aspirin 81 mg 01/15/19 10:00 01/30/19 09:19 Asa - PO 81 mg DAILY [facility] Administration Atorvastatin Calcium 20 mg 01/15/19 22:00 01/30/19 22:44 Lipitor - PO 20 mg HS [facility] Administration Bacitracin 1 applic 01/18/19 11:45 01/30/19 09:19 Bacitracin - TP 1 applic DAILY [facility] Administration Clopidogrel Bisulfate 75 mg 01/16/19 07:00 01/31/19 06:35 Plavix - PO 75 mg AM [facility] Administration Folic Acid 1 mg 01/29/19 10:00 01/30/19 09:19 Folic Acid - PO 1 mg DAILY [facility] Administration Heparin Sodium (Porcine) 5,000 unit 01/15/19 14:00 01/31/19 05:32 Heparin - SQ 5,000 unit TID [facility] Administration IV Flush 4 ml 01/28/19 08:56 01/31/19 05:32 Triple Lumen Flush IVPUSH 4 ml PRN PRN Administration Protocol Vancomycin HCl 1,000 mg in 250 mls @ 200 mls/hr 01/21/19 12:00 01/30/19 11:18 Vancomycin (Pre-Docked) IVPB 200 mls/hr DAILY@1200 [facility] Administration Protocol Meropenem 1 gm/ Dextrose 100 mls @ 200 mls/hr 01/22/19 22:00 01/30/19 22:44 IVPB 200 mls/hr Q12H [facility] Administration Clindamycin Phosphate 600 mg in 50 mls @ 100 mls/hr 01/27/19 15:15 01/31/19 03:11 Cleocin 600 Mg Premix Ivpb - IVPB 100 mls/hr Q8H-IV [facility] Administration Protocol Insulin Aspart 1 vial 01/15/19 11:00 01/31/19 06:35 Novolog Vial Sliding Scale - SQ 2 units ACHS [facility] Administration Protocol Insulin Detemir 15 units 01/22/19 22:00 01/31/19 06:35 Levemir Vial SQ 15 units BID@0700,2200 [facility] Administration Metoprolol Succinate 50 mg 01/16/19 07:00 01/31/19 06:36 Toprol Xl - PO 50 mg AM [facility] Administration Promethazine HCl 12.5 mg 01/15/19 16:50 Phenergan Injection - IVPB Q6H PRN NAUSEA AND/OR VOMITING Ranitidine HCl 150 mg 01/28/19 10:00 01/30/19 22:44 Zantac - PO 150 mg BID [facility] Administration Tamsulosin HCl 0.4 mg 01/16/19 08:30 01/30/19 09:19 Flomax - PO 0.4 mg DAILY@0830 [facility] Administration Impression 1. AMADOU 2. lower ext edema with mrsa in wound 3. leg pain 4. HTN 5. DM 6. CKD 7. large post void residual 8. cellulitis 9. sepsis Plan would continue antibiotics esr is very elevated would rule out CT disease He has muscle atrophy of his hand muscles which suggests some chronicity HIV test? monitor vanco troughs continue current management [facility]
[2019-01-31] MEDS ORDERED: PT OWN MED DRAWER 7, Y5N ONE ×2 (08:43→11:49)
[2019-01-31] MEDS: RANITIDINE HCL 150 MG TABLET (FP) PO SCH ×2 (09:37→22:12)
[2019-01-31] MEDS: ASPIRIN 81 MG CHEWABLE TABLETS PO SCH (09:37)
[2019-01-31] MEDS: FOLIC ACID 1 MG TABLET (FP) PO SCH (09:37)
[2019-01-31] MEDS: AMINO ACIDS/PROTEIN HYDROLYS 30 ML LIQUID.PKT PO SCH ×2 (09:37→17:10)
[2019-01-31] MEDS: TAMSULOSIN HCL 0.4 MG CAP PO SCH (09:37)
[2019-01-31] MEDS ORDERED: INSULIN (NOVOLOG) ASPART 100 UNITS/ML 10ML VIAL ONE (11:59)
[2019-01-31] MEDS: BACITRACIN 15 GM TUBE TOPICAL OINTMENT TP SCH (12:03)
[2019-01-31] MEDS: MEROPENEM 1 GM in DEXTROSE 5%-WATER 100 ML IVPB SCH ×2 (12:03→22:13)
--- NOTE | 2019-01-31 12:36 | PN ---
Progress Note, Physician Chief Complaint: Mr Mendez has no new complaints. Says his leg feels the same. Denies cp, sob, n /v. - Current Medication List Current Medications: Active Medications Acetaminophen (Tylenol -) 650 mg PO Q6H PRN PRN Reason: FEVER Last Admin: 01/31/19 05:32 Dose: 650 mg Amino Acids (Prosource No Carb Liquid Pkt) 30 ml PO BID@0800,1730 [facility] Last Admin: 01/31/19 09:37 Dose: 30 ml Aspirin (Asa -) 81 mg PO DAILY [facility] Last Admin: 01/31/19 09:37 Dose: 81 mg Atorvastatin Calcium (Lipitor -) 20 mg PO HS [facility] Last Admin: 01/30/19 22:44 Dose: 20 mg Bacitracin (Bacitracin -) 1 applic TP DAILY [facility] Last Admin: 01/31/19 12:03 Dose: 1 applic Clopidogrel Bisulfate (Plavix -) 75 mg PO AM [facility] Last Admin: 01/31/19 06:35 Dose: 75 mg Folic Acid (Folic Acid -) 1 mg PO DAILY [facility] Last Admin: 01/31/19 09:37 Dose: 1 mg Heparin Sodium (Porcine) (Heparin -) 5,000 unit SQ TID [facility] Last Admin: 01/31/19 05:32 Dose: 5,000 unit IV Flush (Triple Lumen Flush) 4 ml IVPUSH PRN PRN PRN Reason: Protocol Last Admin: 01/31/19 05:32 Dose: 4 ml Vancomycin HCl (Vancomycin (Pre-Docked)) 1,000 mg in 250 mls @ 200 mls/hr IVPB DAILY@1200 [facility]; Protocol Last Admin: 01/30/19 11:18 Dose: 200 mls/hr Meropenem 1 gm/ Dextrose 100 mls @ 200 mls/hr IVPB Q12H [facility] Last Admin: 01/31/19 12:03 Dose: 200 mls/hr Clindamycin Phosphate (Cleocin 600 Mg Premix Ivpb -) 600 mg in 50 mls @ 100 mls /hr IVPB Q8H-IV [facility]; Protocol Last Admin: 01/31/19 09:37 Dose: 100 mls/hr Insulin Aspart (Novolog Vial Sliding Scale -) 1 vial SQ ACHS [facility]; Protocol Last Admin: 01/31/19 12:04 Dose: 2 units Insulin Detemir (Levemir Vial) 15 units SQ BID@0700,2200 [facility] Last Admin: 01/31/19 06:35 Dose: 15 units Lactobacillus Acidophilus (Bacid -) 1 tab PO DAILY [facility] Metoprolol Succinate (Toprol Xl -) 50 mg PO AM [facility] Last Admin: 01/31/19 06:36 Dose: 50 mg Promethazine HCl (Phenergan Injection -) 12.5 mg IVPB Q6H PRN PRN Reason: NAUSEA AND/OR VOMITING Ranitidine HCl (Zantac -) 150 mg PO BID [facility] Last Admin: 01/31/19 09:37 Dose: 150 mg Tamsulosin HCl (Flomax -) 0.4 mg PO DAILY@0830 [facility] Last Admin: 01/31/19 09:37 Dose: 0.4 mg - Objective Vital Signs: Vital Signs Temperature 36.7 C 01/31/19 09:00 Pulse Rate 81 01/31/19 09:00 Respiratory Rate 18 01/31/19 09:00 Blood Pressure 116/57 L 01/31/19 09:00 O2 Sat by Pulse Oximetry (%) 97 01/31/19 09:00 Constitutional: Yes: No Distress, Calm, Obese Cardiovascular: Yes: Regular Rate and Rhythm. No: Gallop, Murmur, Rub Respiratory: Yes: Regular, CTA Bilaterally. No: Rales, Rhonchi, Wheezes Gastrointestinal: Yes: Normal Bowel Sounds, Soft. No: Distention, Tenderness Extremities: Yes: Other (LLE wrapped, peeling) Edema: LLE: 2+ Labs: CBC, BMP 01/31/19 05:15 01/31/19 05:15 INR, PTT INR 1.19 (0.83-1.09) H 01/28/19 09:20 Problem List - Problems (1) Left leg pain Code(s): M79.605 - PAIN IN LEFT LEG (2) AMADOU (acute kidney injury) Code(s): N17.9 - ACUTE KIDNEY FAILURE, UNSPECIFIED (3) CKD (chronic kidney disease) Code(s): N18.9 - CHRONIC KIDNEY DISEASE, UNSPECIFIED Qualifiers: Chronic kidney disease stage: stage 3 (moderate) Qualified Code(s): N18.3 - Chronic kidney disease, stage 3 (moderate) (4) HTN (hypertension) Code(s): I10 - ESSENTIAL (PRIMARY) HYPERTENSION Qualifiers: Hypertension type: essential hypertension Qualified Code(s): I10 - Essential (primary) hypertension (5) IDDM (insulin dependent diabetes mellitus) Code(s): E11.9 - TYPE 2 DIABETES MELLITUS WITHOUT COMPLICATIONS; 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
[2019-01-31] MEDS: VANCOMYCIN 1 GRAM (PRE-DOCKED) 1,000 MG/250 ML BAG IVPB SCH (13:07)
[2019-01-31] MEDS: LACTOBACILLUS ACIDOPHILUS 1 TABLET PO SCH (13:10)
--- NOTE | 2019-01-31 13:40 | PN ---
Progress Note, Physician History of Present Illness: stable spiked a fever no complaints - Current Medication List Current Medications: Active Medications Acetaminophen (Tylenol -) 650 mg PO Q6H PRN PRN Reason: FEVER Last Admin: 01/31/19 05:32 Dose: 650 mg Amino Acids (Prosource No Carb Liquid Pkt) 30 ml PO BID@0800,1730 [facility] Last Admin: 01/31/19 09:37 Dose: 30 ml Aspirin (Asa -) 81 mg PO DAILY [facility] Last Admin: 01/31/19 09:37 Dose: 81 mg Atorvastatin Calcium (Lipitor -) 20 mg PO HS [facility] Last Admin: 01/30/19 22:44 Dose: 20 mg Bacitracin (Bacitracin -) 1 applic TP DAILY [facility] Last Admin: 01/31/19 12:03 Dose: 1 applic Clopidogrel Bisulfate (Plavix -) 75 mg PO AM [facility] Last Admin: 01/31/19 06:35 Dose: 75 mg Folic Acid (Folic Acid -) 1 mg PO DAILY [facility] Last Admin: 01/31/19 09:37 Dose: 1 mg Heparin Sodium (Porcine) (Heparin -) 5,000 unit SQ TID [facility] Last Admin: 01/31/19 13:10 Dose: 5,000 unit IV Flush (Triple Lumen Flush) 4 ml IVPUSH PRN PRN PRN Reason: Protocol Last Admin: 01/31/19 05:32 Dose: 4 ml Vancomycin HCl (Vancomycin (Pre-Docked)) 1,000 mg in 250 mls @ 200 mls/hr IVPB DAILY@1200 [facility]; Protocol Last Admin: 01/31/19 13:07 Dose: 200 mls/hr Meropenem 1 gm/ Dextrose 100 mls @ 200 mls/hr IVPB Q12H [facility] Last Admin: 01/31/19 12:03 Dose: 200 mls/hr Clindamycin Phosphate (Cleocin 600 Mg Premix Ivpb -) 600 mg in 50 mls @ 100 mls /hr IVPB Q8H-IV [facility]; Protocol Last Admin: 01/31/19 09:37 Dose: 100 mls/hr Insulin Aspart (Novolog Vial Sliding Scale -) 1 vial SQ ACHS [facility]; Protocol Last Admin: 01/31/19 12:04 Dose: 2 units Insulin Detemir (Levemir Vial) 15 units SQ BID@0700,2200 [facility] Last Admin: 01/31/19 06:35 Dose: 15 units Lactobacillus Acidophilus (Bacid -) 1 tab PO DAILY [facility] Last Admin: 01/31/19 13:10 Dose: 1 tab Metoprolol Succinate (Toprol Xl -) 50 mg PO AM [facility] Last Admin: 01/31/19 06:36 Dose: 50 mg Promethazine HCl (Phenergan Injection -) 12.5 mg IVPB Q6H PRN PRN Reason: NAUSEA AND/OR VOMITING Ranitidine HCl (Zantac -) 150 mg PO BID [facility] Last Admin: 01/31/19 09:37 Dose: 150 mg Tamsulosin HCl (Flomax -) 0.4 mg PO DAILY@0830 [facility] Last Admin: 01/31/19 09:37 Dose: 0.4 mg - Objective Vital Signs: Vital Signs Temperature 98.1 F 01/31/19 09:00 Pulse Rate 81 01/31/19 09:00 Respiratory Rate 18 01/31/19 09:00 Blood Pressure 116/57 L 01/31/19 09:00 O2 Sat by Pulse Oximetry (%) 97 01/31/19 09:00 Constitutional: Yes: No Distress, Calm, Obese Cardiovascular: Yes: Regular Rate and Rhythm Respiratory: Yes: Regular, CTA Bilaterally Gastrointestinal: Yes: Normal Bowel Sounds, Soft Musculoskeletal: Yes: Other Extremities: Yes: Other (decreasing swelling) Wound/Incision: Yes: Dressing Dry and Intact Neurological: Yes: Alert, Oriented Psychiatric: Yes: Alert, Oriented Labs: CBC, BMP 01/31/19 05:15 01/31/19 05:15 INR, PTT INR 1.19 (0.83-1.09) H 01/28/19 09:20 Assessment/Plan Problem List - Problems (1) Left leg pain Code(s): M79.605 - PAIN IN LEFT LEG (2) AMADOU (acute kidney injury) Code(s): N17.9 - ACUTE KIDNEY FAILURE, UNSPECIFIED (3) CKD (chronic kidney disease) Code(s): N18.9 - CHRONIC KIDNEY DISEASE, UNSPECIFIED Qualifiers: Chronic kidney disease stage: stage 2 (mild) Qualified Code(s): N18.2 - Chronic kidney disease, stage 2 (mild) (4) HTN (hypertension) Code(s): I10 - ESSENTIAL (PRIMARY) HYPERTENSION Qualifiers: Hypertension type: essential hypertension Qualified Code(s): I10 - Essential (primary) hypertension (5) IDDM (insulin dependent diabetes mellitus) Code(s): E11.9 - TYPE 2 DIABETES MELLITUS WITHOUT COMPLICATIONS; 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
[2019-01-31] MEDS: ATORVASTATIN CA 20 MG TABLET (FP) PO SCH (22:12)
[2019-02-01] MEDS: CLINDAMYCIN 600MG PREMIX IVPB 600 MG/50 ML BAG IVPB SCH ×2 (01:36→09:26)
[2019-02-01] MEDS: CLOPIDOGREL BISULFATE 75 MG TABLET (FP) PO SCH (07:09)
[2019-02-01] MEDS: INSULIN (LEVEMIR) 100 UNITS/ML UNITS SQ SCH ×2 (07:11→22:33)
[2019-02-01] MEDS: INSULIN SLIDING SCALE (NOVOLOG) 1 VIAL SQ SCH ×4 (07:11→22:34)
[2019-02-01] MEDS ORDERED: PT OWN MED DRAWER 7, Y5N ONE ×2 (07:44→08:50)
[2019-02-01] MEDS: HEPARIN NA (PORCINE) 5,000 UNITS/ML 1ML VIAL SQ SCH ×2 (07:50→15:28)
[2019-02-01] MEDS: TAMSULOSIN HCL 0.4 MG CAP PO SCH (08:21)
[2019-02-01] MEDS: AMINO ACIDS/PROTEIN HYDROLYS 30 ML LIQUID.PKT PO SCH ×2 (08:21→17:31)
[2019-02-01] MEDS: FINASTERIDE 5 MG TABLET (FP) PO SCH (09:26)
[2019-02-01] MEDS: FOLIC ACID 1 MG TABLET (FP) PO SCH (09:26)
[2019-02-01] MEDS: RANITIDINE HCL 150 MG TABLET (FP) PO SCH ×2 (09:26→22:33)
[2019-02-01] MEDS: ASPIRIN 81 MG CHEWABLE TABLETS PO SCH (09:26)
[2019-02-01] MEDS: LACTOBACILLUS ACIDOPHILUS 1 TABLET PO SCH (09:26)
[2019-02-01] MEDS: MEROPENEM 1 GM in DEXTROSE 5%-WATER 100 ML IVPB SCH ×2 (09:27→22:34)
--- NOTE | 2019-02-01 10:14 | PN ---
Progress Note, Physician History of Present Illness: patient leg looks better swelling slightly less fco still swollen dressing removed wounds looked at another eschar noted on the back of the thigh some difficulty swallowing - Current Medication List Current Medications: Active Medications Acetaminophen (Tylenol -) 650 mg PO Q6H PRN PRN Reason: FEVER Last Admin: 01/31/19 05:32 Dose: 650 mg Amino Acids (Prosource No Carb Liquid Pkt) 30 ml PO BID@0800,1730 [facility] Last Admin: 02/01/19 08:21 Dose: 30 ml Aspirin (Asa -) 81 mg PO DAILY [facility] Last Admin: 02/01/19 09:26 Dose: 81 mg Atorvastatin Calcium (Lipitor -) 20 mg PO HS [facility] Last Admin: 01/31/19 22:12 Dose: 20 mg Bacitracin (Bacitracin -) 1 applic TP DAILY [facility] Last Admin: 01/31/19 12:03 Dose: 1 applic Clopidogrel Bisulfate (Plavix -) 75 mg PO AM [facility] Last Admin: 02/01/19 07:09 Dose: 75 mg Doxycycline Hyclate (Vibramycin -) 100 mg PO BID@1000,1800 [facility] Finasteride (Proscar -) 5 mg PO DAILY [facility] Last Admin: 02/01/19 09:26 Dose: 5 mg Folic Acid (Folic Acid -) 1 mg PO DAILY [facility] Last Admin: 02/01/19 09:26 Dose: 1 mg Heparin Sodium (Porcine) (Heparin -) 5,000 unit SQ TID [facility] Last Admin: 02/01/19 07:50 Dose: Not Given IV Flush (Triple Lumen Flush) 4 ml IVPUSH PRN PRN PRN Reason: Protocol Last Admin: 01/31/19 05:32 Dose: 4 ml Meropenem 1 gm/ Dextrose 100 mls @ 200 mls/hr IVPB Q12H [facility] Last Admin: 02/01/19 09:27 Dose: 200 mls/hr Insulin Aspart (Novolog Vial Sliding Scale -) 1 vial SQ ACHS [facility]; Protocol Last Admin: 02/01/19 07:11 Dose: 2 units Insulin Detemir (Levemir Vial) 15 units SQ BID@0700,2200 [facility] Last Admin: 02/01/19 07:11 Dose: 15 units Lactobacillus Acidophilus (Bacid -) 1 tab PO DAILY [facility] Last Admin: 02/01/19 09:26 Dose: 1 tab Metoprolol Succinate (Toprol Xl -) 50 mg PO AM [facility] Last Admin: 02/01/19 07:09 Dose: 50 mg Promethazine HCl (Phenergan Injection -) 12.5 mg IVPB Q6H PRN PRN Reason: NAUSEA AND/OR VOMITING Ranitidine HCl (Zantac -) 150 mg PO BID [facility] Last Admin: 02/01/19 09:26 Dose: 150 mg Tamsulosin HCl (Flomax -) 0.4 mg PO DAILY@0830 [facility] Last Admin: 02/01/19 08:21 Dose: 0.4 mg - Objective Vital Signs: Vital Signs Temperature 98.7 F 02/01/19 09:39 Pulse Rate 88 02/01/19 09:39 Respiratory Rate 18 02/01/19 09:39 Blood Pressure 127/65 02/01/19 09:39 O2 Sat by Pulse Oximetry (%) 98 01/31/19 21:00 Constitutional: Yes: No Distress, Calm, Obese Cardiovascular: Yes: Regular Rate and Rhythm Respiratory: Yes: Regular, CTA Bilaterally Gastrointestinal: Yes: Normal Bowel Sounds, Soft Musculoskeletal: Yes: WNL Extremities: Yes: Erythema (improving), Shortened Wound/Incision: Yes: Dressing Removed, Other (wounds drying) Neurological: Yes: Alert, Oriented Psychiatric: Yes: Alert, Oriented Labs: CBC, BMP 01/31/19 05:15 01/31/19 05:15 INR, PTT INR 1.19 (0.83-1.09) H 01/28/19 09:20 Assessment/Plan Problem List - Problems (1) Left leg pain Code(s): M79.605 - PAIN IN LEFT LEG (2) AMADOU (acute kidney injury) Code(s): N17.9 - ACUTE KIDNEY FAILURE, UNSPECIFIED (3) CKD (chronic kidney disease) Code(s): N18.9 - CHRONIC KIDNEY DISEASE, UNSPECIFIED Qualifiers: Chronic kidney disease stage: stage 2 (mild) Qualified Code(s): N18.2 - Chronic kidney disease, stage 2 (mild) (4) HTN (hypertension) Code(s): I10 - ESSENTIAL (PRIMARY) HYPERTENSION Qualifiers: Hypertension type: essential hypertension Qualified Code(s): I10 - Essential (primary) hypertension (5) IDDM (insulin dependent diabetes mellitus) Code(s): E11.9 - TYPE 2 DIABETES MELLITUS WITHOUT COMPLICATIONS; 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
--- NOTE | 2019-02-01 11:39 | PN ---
Progress Note, Physician Chief Complaint: Mr Mendez has no new complaints. His leg remains unchanged. Denies cp, sob, n/ v. - Current Medication List Current Medications: Active Medications Acetaminophen (Tylenol -) 650 mg PO Q6H PRN PRN Reason: FEVER Last Admin: 01/31/19 05:32 Dose: 650 mg Amino Acids (Prosource No Carb Liquid Pkt) 30 ml PO BID@0800,1730 [facility] Last Admin: 02/01/19 08:21 Dose: 30 ml Aspirin (Asa -) 81 mg PO DAILY [facility] Last Admin: 02/01/19 09:26 Dose: 81 mg Atorvastatin Calcium (Lipitor -) 20 mg PO HS [facility] Last Admin: 01/31/19 22:12 Dose: 20 mg Bacitracin (Bacitracin -) 1 applic TP DAILY [facility] Last Admin: 01/31/19 12:03 Dose: 1 applic Clopidogrel Bisulfate (Plavix -) 75 mg PO AM [facility] Last Admin: 02/01/19 07:09 Dose: 75 mg Doxycycline Hyclate (Vibramycin -) 100 mg PO BID@1000,1800 [facility] Finasteride (Proscar -) 5 mg PO DAILY [facility] Last Admin: 02/01/19 09:26 Dose: 5 mg Folic Acid (Folic Acid -) 1 mg PO DAILY [facility] Last Admin: 02/01/19 09:26 Dose: 1 mg Heparin Sodium (Porcine) (Heparin -) 5,000 unit SQ TID [facility] Last Admin: 02/01/19 07:50 Dose: Not Given IV Flush (Triple Lumen Flush) 4 ml IVPUSH PRN PRN PRN Reason: Protocol Last Admin: 01/31/19 05:32 Dose: 4 ml Meropenem 1 gm/ Dextrose 100 mls @ 200 mls/hr IVPB Q12H [facility] Last Admin: 02/01/19 09:27 Dose: 200 mls/hr Insulin Aspart (Novolog Vial Sliding Scale -) 1 vial SQ ACHS [facility]; Protocol Last Admin: 02/01/19 07:11 Dose: 2 units Insulin Detemir (Levemir Vial) 15 units SQ BID@0700,2200 [facility] Last Admin: 02/01/19 07:11 Dose: 15 units Lactobacillus Acidophilus (Bacid -) 1 tab PO DAILY [facility] Last Admin: 02/01/19 09:26 Dose: 1 tab Metoprolol Succinate (Toprol Xl -) 50 mg PO AM [facility] Last Admin: 02/01/19 07:09 Dose: 50 mg Nystatin (Nystatin Oral Suspension -) 500,000 units PO Q6HPO [facility] Promethazine HCl (Phenergan Injection -) 12.5 mg IVPB Q6H PRN PRN Reason: NAUSEA AND/OR VOMITING Ranitidine HCl (Zantac -) 150 mg PO BID [facility] Last Admin: 02/01/19 09:26 Dose: 150 mg Tamsulosin HCl (Flomax -) 0.4 mg PO DAILY@0830 [facility] Last Admin: 02/01/19 08:21 Dose: 0.4 mg - Objective Vital Signs: Vital Signs Temperature 37.1 C 02/01/19 09:39 Pulse Rate 88 02/01/19 09:39 Respiratory Rate 18 02/01/19 09:39 Blood Pressure 127/65 02/01/19 09:39 O2 Sat by Pulse Oximetry (%) 98 02/01/19 09:00 Constitutional: Yes: No Distress, Calm, Obese Cardiovascular: Yes: Regular Rate and Rhythm. No: Gallop, Murmur, Rub Respiratory: Yes: Regular, CTA Bilaterally. No: Rales, Rhonchi, Wheezes Gastrointestinal: Yes: Normal Bowel Sounds, Soft. No: Distention, Tenderness Extremities: Yes: WNL Edema: No Labs: CBC, BMP 01/31/19 05:15 01/31/19 05:15 INR, PTT INR 1.19 (0.83-1.09) H 01/28/19 09:20 Problem List - Problems (1) Left leg pain Code(s): M79.605 - PAIN IN LEFT LEG (2) AMADOU (acute kidney injury) Code(s): N17.9 - ACUTE KIDNEY FAILURE, UNSPECIFIED (3) CKD (chronic kidney disease) Code(s): N18.9 - CHRONIC KIDNEY DISEASE, UNSPECIFIED Qualifiers: Chronic kidney disease stage: stage 3 (moderate) Qualified Code(s): N18.3 - Chronic kidney disease, stage 3 (moderate) (4) HTN (hypertension) Code(s): I10 - ESSENTIAL (PRIMARY) HYPERTENSION Qualifiers: Hypertension type: essential hypertension Qualified Code(s): I10 - Essential (primary) hypertension (5) IDDM (insulin dependent diabetes mellitus) Code(s): E11.9 - TYPE 2 DIABETES MELLITUS WITHOUT COMPLICATIONS; Z79.4 - 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
[2019-02-01] MEDS: NYSTATIN 500,000 UNITS/5 ML SUSPENSION PO SCH ×2 (11:40→17:31)
[2019-02-01] MEDS: BACITRACIN 15 GM TUBE TOPICAL OINTMENT TP SCH (11:40)
--- NOTE | 2019-02-01 14:18 | PN ---
Progress Note, Physician History of Present Illness: Pt seen and examined at bedside. He is awake and alert. He feels that his leg is getting better. - Current Medication List Current Medications: Active Medications Acetaminophen (Tylenol -) 650 mg PO Q6H PRN PRN Reason: FEVER Last Admin: 01/31/19 05:32 Dose: 650 mg Amino Acids (Prosource No Carb Liquid Pkt) 30 ml PO BID@0800,1730 [facility] Last Admin: 02/01/19 08:21 Dose: 30 ml Aspirin (Asa -) 81 mg PO DAILY [facility] Last Admin: 02/01/19 09:26 Dose: 81 mg Atorvastatin Calcium (Lipitor -) 20 mg PO HS [facility] Last Admin: 01/31/19 22:12 Dose: 20 mg Bacitracin (Bacitracin -) 1 applic TP DAILY [facility] Last Admin: 02/01/19 11:40 Dose: 1 applic Clopidogrel Bisulfate (Plavix -) 75 mg PO AM [facility] Last Admin: 02/01/19 07:09 Dose: 75 mg Doxycycline Hyclate (Vibramycin -) 100 mg PO BID@1000,1800 [facility] Finasteride (Proscar -) 5 mg PO DAILY [facility] Last Admin: 02/01/19 09:26 Dose: 5 mg Folic Acid (Folic Acid -) 1 mg PO DAILY [facility] Last Admin: 02/01/19 09:26 Dose: 1 mg Heparin Sodium (Porcine) (Heparin -) 5,000 unit SQ TID [facility] Last Admin: 02/01/19 07:50 Dose: Not Given IV Flush (Triple Lumen Flush) 4 ml IVPUSH PRN PRN PRN Reason: Protocol Last Admin: 01/31/19 05:32 Dose: 4 ml Meropenem 1 gm/ Dextrose 100 mls @ 200 mls/hr IVPB Q12H [facility] Last Admin: 02/01/19 09:27 Dose: 200 mls/hr Insulin Aspart (Novolog Vial Sliding Scale -) 1 vial SQ ACHS [facility]; Protocol Last Admin: 02/01/19 11:39 Dose: 6 units Insulin Detemir (Levemir Vial) 15 units SQ BID@0700,2200 [facility] Last Admin: 02/01/19 07:11 Dose: 15 units Lactobacillus Acidophilus (Bacid -) 1 tab PO DAILY [facility] Last Admin: 02/01/19 09:26 Dose: 1 tab Metoprolol Succinate (Toprol Xl -) 50 mg PO AM [facility] Last Admin: 02/01/19 07:09 Dose: 50 mg Nystatin (Nystatin Oral Suspension -) 500,000 units PO Q6HPO [facility] Last Admin: 02/01/19 11:40 Dose: 500,000 units Promethazine HCl (Phenergan Injection -) 12.5 mg IVPB Q6H PRN PRN Reason: NAUSEA AND/OR VOMITING Ranitidine HCl (Zantac -) 150 mg PO BID [facility] Last Admin: 02/01/19 09:26 Dose: 150 mg Tamsulosin HCl (Flomax -) 0.4 mg PO DAILY@0830 [facility] Last Admin: 02/01/19 08:21 Dose: 0.4 mg - Objective Vital Signs: Vital Signs Temperature 98.7 F 02/01/19 09:39 Pulse Rate 88 02/01/19 09:39 Respiratory Rate 18 02/01/19 09:39 Blood Pressure 127/65 02/01/19 09:39 O2 Sat by Pulse Oximetry (%) 98 02/01/19 09:00 Constitutional: Yes: Calm Eyes: Yes: Conjunctiva Clear HENT: Yes: Atraumatic Neck: Yes: Supple Cardiovascular: Yes: S1, S2 Respiratory: Yes: CTA Bilaterally Gastrointestinal: Yes: Soft Genitourinary: Yes: WNL Edema: Yes Edema: LLE: 1+ Integumentary: Yes: Other (skin slughing off of left leg) Neurological: Yes: Oriented Psychiatric: Yes: Oriented Labs: CBC, BMP 01/31/19 05:15 01/31/19 05:15 INR, PTT INR 1.19 (0.83-1.09) H 01/28/19 09:20 Problem List - Problems (1) AMADOU (acute kidney injury) Code(s): N17.9 - ACUTE KIDNEY FAILURE, UNSPECIFIED (2) CHF (congestive heart failure) Code(s): I50.9 - HEART FAILURE, UNSPECIFIED Qualifiers: Heart failure type: unspecified Qualified Code(s): I50.9 - Heart failure, unspecified (3) CKD (chronic kidney disease) Code(s): N18.9 - CHRONIC KIDNEY DISEASE, UNSPECIFIED Qualifiers: Chronic kidney disease stage: stage 3 (moderate) Qualified Code(s): N18.3 - Chronic kidney disease, stage 3 (moderate) (4) HTN (hypertension) Code(s): I10 - ESSENTIAL (PRIMARY) HYPERTENSION Qualifiers: Hypertension type: essential hypertension Qualified Code(s): I10 - Essential (primary) hypertension (5) IDDM (insulin dependent diabetes mellitus) Code(s): E11.9 - TYPE 2 DIABETES MELLITUS WITHOUT COMPLICATIONS; 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 (6) Left leg pain Code(s): M79.605 - PAIN IN LEFT LEG Assessment/Plan Current Medications Generic Name Dose Route Start Last Admin Trade Name Freq PRN Reason Stop Dose Admin Acetaminophen 650 mg 01/25/19 15:01 01/31/19 05:32 Tylenol - PO 650 mg Q6H PRN Administration FEVER Amino Acids 30 ml 01/25/19 17:30 02/01/19 08:21 Prosource No Carb Liquid Pkt PO 30 ml BID@0800,1730 [facility] Administration Aspirin 81 mg 01/15/19 10:00 02/01/19 09:26 Asa - PO 81 mg DAILY [facility] Administration Atorvastatin Calcium 20 mg 01/15/19 22:00 01/31/19 22:12 Lipitor - PO 20 mg HS [facility] Administration Bacitracin 1 applic 01/18/19 11:45 02/01/19 11:40 Bacitracin - TP 1 applic DAILY [facility] Administration Clopidogrel Bisulfate 75 mg 01/16/19 07:00 02/01/19 07:09 Plavix - PO 75 mg AM [facility] Administration Doxycycline Hyclate 100 mg 02/01/19 18:00 Vibramycin - PO BID@1000,1800 [facility] Finasteride 5 mg 02/01/19 10:00 02/01/19 09:26 Proscar - PO 5 mg DAILY [facility] Administration Folic Acid 1 mg 01/29/19 10:00 02/01/19 09:26 Folic Acid - PO 1 mg DAILY [facility] Administration Heparin Sodium (Porcine) 5,000 unit 01/15/19 14:00 02/01/19 07:50 Heparin - SQ Not Given TID [facility] IV Flush 4 ml 01/28/19 08:56 01/31/19 05:32 Triple Lumen Flush IVPUSH 4 ml PRN PRN Administration Protocol Meropenem 1 gm/ Dextrose 100 mls @ 200 mls/hr 01/22/19 22:00 02/01/19 09:27 IVPB 200 mls/hr Q12H [facility] Administration Insulin Aspart 1 vial 01/15/19 11:00 02/01/19 11:39 Novolog Vial Sliding Scale - SQ 6 units ACHS [facility] Administration Protocol Insulin Detemir 15 units 01/22/19 22:00 02/01/19 07:11 Levemir Vial SQ 15 units BID@0700,2200 [facility] Administration Lactobacillus Acidophilus 1 tab 01/31/19 11:45 02/01/19 09:26 Bacid - PO 1 tab DAILY [facility] Administration Metoprolol Succinate 50 mg 01/16/19 07:00 02/01/19 07:09 Toprol Xl - PO 50 mg AM [facility] Administration Nystatin 500,000 units 02/01/19 12:00 02/01/19 11:40 Nystatin Oral Suspension - PO 500,000 units Q6HPO [facility] Administration Promethazine HCl 12.5 mg 01/15/19 16:50 Phenergan Injection - IVPB Q6H PRN NAUSEA AND/OR VOMITING Ranitidine HCl 150 mg 01/28/19 10:00 02/01/19 09:26 Zantac - PO 150 mg BID LISA Administration Tamsulosin HCl 0.4 mg 01/16/19 08:30 02/01/19 08:21 Flomax - PO 0.4 mg DAILY@0830 LISA Administration Laboratory Tests 01/14/19 01/15/19 01/30/19 05:30 06:00 08:55 Sodium 135 L Creatinine 3.1 H 3.2 H HERSON Screen Pending Impression 1. AMADOU 2. lower ext edema 3. leg pain 4. HTN 5. DM 6. CKD 7. large post void residual 8. cellulitis 9. sepsis Plan - will order am labs to check morning nanny - will need further workup after discharge - abx per ID - follow up herson, still pending - avoid nsaids - anemia management per primary team - amadou likely in part from sepsis
[2019-02-01] MEDS: DOXYCYCLINE HYCLATE 100 MG CAPSULE PO SCH (17:31)
--- NOTE | 2019-02-01 19:10 | PN ---
Physical Exam: SUBJECTIVE: Patient seen and examined; denies fever, chills, melena OBJECTIVE: Vital Signs Period Temp Pulse Resp BP Sys/Cano Pulse Ox Last 24 Hr 98.4 F-98.7 F 86-90 17-18 127-142/60-77 98-98 GENERAL: The patient is awake, alert, and fully oriented, obese LUNGS: Breath sounds equal, clear to auscultation bilaterally, no wheezes, no crackles, no accessory muscle use. HEART: Regular rate and rhythm, S1, S2 without murmur, rub or gallop. BReast/axilla; no masses; lumps ABDOMEN: Soft, nontender, nondistended, normoactive bowel sounds, no guarding, no rebound, no hepatosplenomegaly, no masses. EXTREMITIES: 2+ pulses, warm, well-perfused, no edema. right thigh posterior abscess; closed with induration; open abcess on buttoks; with purulent discharge and induration NEUROLOGICAL: Cranial nerves II through XII grossly intact. Normal speech, gait not observed. PSYCH: Normal mood, normal affect. SKIN: Warm, dry, normal turgor, no rashes or lesions noted Laboratory Results - last 24 hr 01/29/19 01/30/19 01/31/19 21:18 08:55 22:14 POC Glucometer 165 173 JUAN Screen Negative 02/01/19 02/01/19 02/01/19 07:10 11:13 16:49 POC Glucometer 163 284 202 JUAN Screen Active Medications Generic Name Dose Route Start Last Admin Trade Name Freq PRN Reason Stop Dose Admin Acetaminophen 650 mg 01/25/19 15:01 01/31/19 05:32 Tylenol - PO 650 mg Q6H PRN Administration FEVER Amino Acids 30 ml 01/25/19 17:30 02/01/19 17:31 Prosource No Carb Liquid Pkt PO 30 ml BID@0800,1730 LISA Administration Aspirin 81 mg 01/15/19 10:00 02/01/19 09:26 Asa - PO 81 mg DAILY LISA Administration Atorvastatin Calcium 20 mg 01/15/19 22:00 01/31/19 22:12 Lipitor - PO 20 mg HS LISA Administration Bacitracin 1 applic 01/18/19 11:45 02/01/19 11:40 Bacitracin - TP 1 applic DAILY LISA Administration Clopidogrel Bisulfate 75 mg 01/16/19 07:00 02/01/19 07:09 Plavix - PO 75 mg AM LISA Administration Doxycycline Hyclate 100 mg 02/01/19 18:00 02/01/19 17:31 Vibramycin - PO 100 mg BID@1000,1800 LISA Administration Ferrous Sulfate 325 mg 02/02/19 08:00 Feosol - PO DAILY@0800 [facility] Finasteride 5 mg 02/01/19 10:00 02/01/19 09:26 Proscar - PO 5 mg DAILY LISA Administration Folic Acid 1 mg 01/29/19 10:00 02/01/19 09:26 Folic Acid - PO 1 mg DAILY LISA Administration IV Flush 4 ml 01/28/19 08:56 01/31/19 05:32 Triple Lumen Flush IVPUSH 4 ml PRN PRN Administration Protocol Meropenem 1 gm/ Dextrose 100 mls @ 200 mls/hr 01/22/19 22:00 02/01/19 09:27 IVPB 200 mls/hr Q12H LISA Administration Insulin Aspart 1 vial 01/15/19 11:00 02/01/19 17:31 Novolog Vial Sliding Scale - SQ 4 units ACHS LISA Administration Protocol Insulin Detemir 15 units 01/22/19 22:00 02/01/19 07:11 Levemir Vial SQ 15 units BID@0700,2200 LISA Administration Lactobacillus Acidophilus 1 tab 01/31/19 11:45 02/01/19 09:26 Bacid - PO 1 tab DAILY LISA Administration Metoprolol Succinate 50 mg 01/16/19 07:00 02/01/19 07:09 Toprol Xl - PO 50 mg AM LISA Administration Nystatin 500,000 units 02/01/19 12:00 02/01/19 17:31 Nystatin Oral Suspension - PO 500,000 units Q6HPO LISA Administration Promethazine HCl 12.5 mg 01/15/19 16:50 Phenergan Injection - IVPB Q6H PRN NAUSEA AND/OR VOMITING Ranitidine HCl 150 mg 01/28/19 10:00 02/01/19 09:26 Zantac - PO 150 mg BID LISA Administration Tamsulosin HCl 0.4 mg 01/16/19 08:30 02/01/19 08:21 Flomax - PO 0.4 mg DAILY@0830 LISA Administration ASSESSMENT/PLAN: This is a 59 year old obese male with a history of CKD, DM, HTN, cellulitis admitted for sepsis secondary to cellulitis. #sepsis secondary to LE cellulits with abscess formation; -cont IV antibiotics meropenam -ID following -surgery following #marcocytic anemia with iron def anemia: -iron studies + for iron def; replace oral iron -due to vit b12 and folate normal and history of "bone cancer" in [facility],other; will order flow cytometry, FISH and cytogenetics #AMADOU on chronic KD -most likey related to sepsis; improving #DM: insulin ss #CAD: cont asa and plavix DVT ppl : tocay will start scds; monitor bld levels will add heparin if stable Visit type - Emergency Visit Emergency Visit: Yes ED Registration Date: 01/13/19 Care time: The patient presented to the Emergency Department on the above date and was hospitalized for further evaluation of their emergent condition. - New Patient This patient is new to me today: Yes Date on this admission: 02/01/19 - Critical Care Critical Care patient: No
[2019-02-01] MEDS: ATORVASTATIN CA 20 MG TABLET (FP) PO SCH (22:34)
[2019-02-02] MEDS: NYSTATIN 500,000 UNITS/5 ML SUSPENSION PO SCH ×4 (01:07→17:44)
[2019-02-02] MEDS: INSULIN SLIDING SCALE (NOVOLOG) 1 VIAL SQ SCH ×4 (06:05→22:42)
[2019-02-02] MEDS: CLOPIDOGREL BISULFATE 75 MG TABLET (FP) PO SCH (06:05)
[2019-02-02] MEDS: INSULIN (LEVEMIR) 100 UNITS/ML UNITS SQ SCH ×2 (06:05→22:43)
[2019-02-02 07:17] LABS: BASO % 0.7 % (0-2.0); EOS % 2.8 % (0-4.5); HEMATOCRIT 27.1 % (35.4-49); HEMOGLOBIN 9.3 GM/dL (11.7-16.9); LYMPH % 10.9 % (8-40); MCH 29.6 pg (25.7-33.7); MCHC 34.5 g/dl (32.0-35.9); MEAN CELL VOLUME 85.9 fl (80-96); MEAN PLT VOLUME 7.7 fl (7.5-11.1); MONO % 9.3 % (3.8-10.2); NEUT % 76.3 % (42.8-82.8); PLATELET COUNT 350 K/MM3 (134-434); RBC 3.16 M/mm3 (4.00-5.60); RDW 15.8 % (11.9-15.9); WHITE BLOOD COUNT 9.3 K/mm3 (4.0-10.0)
[2019-02-02 07:55] LABS: ALBUMIN 1.7 g/dl (3.4-5.0); ALK PHOS 81 U/L (45-117); ANION GAP 6 MMOL/L (8-16); BILIRUBIN,TOTAL 0.9 mg/dL (0.2-1); BLOOD UREA NITROGEN 36 mg/dL (7-18); CHLORIDE 107 mmol/L (98-107); CO2 23 mmol/L (21-32); CREATININE 1.7 mg/dL (0.55-1.3); GLUCOSE,RANDOM 189 mg/dL (74-106); MAGNESIUM 1.7 mg/dL (1.8-2.4); PHOSPHOROUS 3.1 mg/dL (2.5-4.9); POTASSIUM 4.7 mmol/L (3.5-5.1); SGOT/AST 16 U/L (15-37); SGPT/ALT 12 U/L (13-61); SODIUM 137 mmol/L (136-145); TOT PROT 6.9 g/dl (6.4-8.2)
[2019-02-02 08:09] LABS: LDH 293 U/L (87-246)
[2019-02-02] MEDS: TAMSULOSIN HCL 0.4 MG CAP PO SCH (09:17)
[2019-02-02] MEDS: AMINO ACIDS/PROTEIN HYDROLYS 30 ML LIQUID.PKT PO SCH ×2 (09:17→17:45)
[2019-02-02] MEDS: RANITIDINE HCL 150 MG TABLET (FP) PO SCH ×2 (09:17→22:42)
[2019-02-02] MEDS: FERROUS SO4 325 MG TABLET (FP) PO SCH (09:17)
[2019-02-02] MEDS: FINASTERIDE 5 MG TABLET (FP) PO SCH (09:17)
[2019-02-02] MEDS: DOXYCYCLINE HYCLATE 100 MG CAPSULE PO SCH ×2 (09:17→17:44)
[2019-02-02] MEDS: BACITRACIN 15 GM TUBE TOPICAL OINTMENT TP SCH (09:18)
[2019-02-02] MEDS: ASPIRIN 81 MG CHEWABLE TABLETS PO SCH (09:18)
[2019-02-02] MEDS: LACTOBACILLUS ACIDOPHILUS 1 TABLET PO SCH (09:18)
[2019-02-02] MEDS: FOLIC ACID 1 MG TABLET (FP) PO SCH (09:18)
[2019-02-02] MEDS ORDERED: PT OWN MED DRAWER 7, Y5N ONE ×2 (09:21→22:37)
[2019-02-02] MEDS: MEROPENEM 1 GM in DEXTROSE 5%-WATER 100 ML IVPB SCH ×2 (09:22→22:42)
--- NOTE | 2019-02-02 12:24 | PN ---
Progress Note, Physician History of Present Illness: doing well remaining afebrile for more than 48 hours leg swelling starting to improve - Current Medication List Current Medications: Active Medications Acetaminophen (Tylenol -) 650 mg PO Q6H PRN PRN Reason: FEVER Last Admin: 01/31/19 05:32 Dose: 650 mg Amino Acids (Prosource No Carb Liquid Pkt) 30 ml PO BID@0800,1730 [facility] Last Admin: 02/02/19 09:17 Dose: 30 ml Aspirin (Asa -) 81 mg PO DAILY [facility] Last Admin: 02/02/19 09:18 Dose: 81 mg Atorvastatin Calcium (Lipitor -) 20 mg PO HS [facility] Last Admin: 02/01/19 22:34 Dose: 20 mg Bacitracin (Bacitracin -) 1 applic TP DAILY [facility] Last Admin: 02/02/19 09:18 Dose: 1 applic Clopidogrel Bisulfate (Plavix -) 75 mg PO AM [facility] Last Admin: 02/02/19 06:05 Dose: 75 mg Doxycycline Hyclate (Vibramycin -) 100 mg PO BID@1000,1800 [facility] Last Admin: 02/02/19 09:17 Dose: 100 mg Ferrous Sulfate (Feosol -) 325 mg PO DAILY@0800 [facility] Last Admin: 02/02/19 09:17 Dose: 325 mg Finasteride (Proscar -) 5 mg PO DAILY [facility] Last Admin: 02/02/19 09:17 Dose: 5 mg Folic Acid (Folic Acid -) 1 mg PO DAILY [facility] Last Admin: 02/02/19 09:18 Dose: 1 mg IV Flush (Triple Lumen Flush) 4 ml IVPUSH PRN PRN PRN Reason: Protocol Last Admin: 01/31/19 05:32 Dose: 4 ml Meropenem 1 gm/ Dextrose 100 mls @ 200 mls/hr IVPB Q12H [facility] Last Admin: 02/02/19 09:22 Dose: 200 mls/hr Insulin Aspart (Novolog Vial Sliding Scale -) 1 vial SQ ACHS [facility]; Protocol Last Admin: 02/02/19 06:05 Dose: 2 units Insulin Detemir (Levemir Vial) 15 units SQ BID@0700,2200 [facility] Last Admin: 02/02/19 06:05 Dose: 15 units Lactobacillus Acidophilus (Bacid -) 1 tab PO DAILY [facility] Last Admin: 02/02/19 09:18 Dose: 1 tab Metoprolol Succinate (Toprol Xl -) 50 mg PO AM [facility] Last Admin: 02/02/19 06:00 Dose: 50 mg Nystatin (Nystatin Oral Suspension -) 500,000 units PO Q6HPO [facility] Last Admin: 02/02/19 05:56 Dose: 500,000 units Promethazine HCl (Phenergan Injection -) 12.5 mg IVPB Q6H PRN PRN Reason: NAUSEA AND/OR VOMITING Ranitidine HCl (Zantac -) 150 mg PO BID [facility] Last Admin: 02/02/19 09:17 Dose: 150 mg Tamsulosin HCl (Flomax -) 0.4 mg PO DAILY@0830 [facility] Last Admin: 02/02/19 09:17 Dose: 0.4 mg - Objective Vital Signs: Vital Signs Temperature 99.4 F 02/02/19 05:51 Pulse Rate 93 H 02/02/19 05:51 Respiratory Rate 20 02/02/19 05:51 Blood Pressure 118/58 L 02/02/19 05:51 O2 Sat by Pulse Oximetry (%) 98 02/01/19 21:00 Constitutional: Yes: No Distress, Calm Cardiovascular: Yes: Regular Rate and Rhythm Respiratory: Yes: Regular, CTA Bilaterally Gastrointestinal: Yes: Normal Bowel Sounds, Soft Wound/Incision: Yes: Dressing Dry and Intact Neurological: Yes: Alert, Oriented Psychiatric: Yes: Alert, Oriented Labs: CBC, BMP 02/02/19 06:25 02/02/19 06:25 INR, PTT INR 1.19 (0.83-1.09) H 01/28/19 09:20 Assessment/Plan Problem List - Problems (1) Left leg pain Code(s): M79.605 - PAIN IN LEFT LEG (2) AMADOU (acute kidney injury) Code(s): N17.9 - ACUTE KIDNEY FAILURE, UNSPECIFIED (3) CKD (chronic kidney disease) Code(s): N18.9 - CHRONIC KIDNEY DISEASE, UNSPECIFIED Qualifiers: Chronic kidney disease stage: stage 2 (mild) Qualified Code(s): N18.2 - Chronic kidney disease, stage 2 (mild) (4) HTN (hypertension) Code(s): I10 - ESSENTIAL (PRIMARY) HYPERTENSION Qualifiers: Hypertension type: essential hypertension Qualified Code(s): I10 - Essential (primary) hypertension (5) IDDM (insulin dependent diabetes mellitus) Code(s): E11.9 - TYPE 2 DIABETES MELLITUS WITHOUT COMPLICATIONS; 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
[2019-02-02] MEDS ORDERED: MAGNESIUM OXIDE 400 MG TABLET (FP) PO ONE (12:53)
--- NOTE | 2019-02-02 16:22 | PN ---
Progress Note, Physician History of Present Illness: Pt seen and examined at bedside. He is awake and alert. He denies dysuria or hematuria. - Current Medication List Current Medications: Active Medications Acetaminophen (Tylenol -) 650 mg PO Q6H PRN PRN Reason: FEVER Last Admin: 01/31/19 05:32 Dose: 650 mg Amino Acids (Prosource No Carb Liquid Pkt) 30 ml PO BID@0800,1730 [facility] Last Admin: 02/02/19 09:17 Dose: 30 ml Aspirin (Asa -) 81 mg PO DAILY [facility] Last Admin: 02/02/19 09:18 Dose: 81 mg Atorvastatin Calcium (Lipitor -) 20 mg PO HS [facility] Last Admin: 02/01/19 22:34 Dose: 20 mg Bacitracin (Bacitracin -) 1 applic TP DAILY [facility] Last Admin: 02/02/19 09:18 Dose: 1 applic Clopidogrel Bisulfate (Plavix -) 75 mg PO AM [facility] Last Admin: 02/02/19 06:05 Dose: 75 mg Doxycycline Hyclate (Vibramycin -) 100 mg PO BID@1000,1800 [facility] Last Admin: 02/02/19 09:17 Dose: 100 mg Ferrous Sulfate (Feosol -) 325 mg PO DAILY@0800 [facility] Last Admin: 02/02/19 09:17 Dose: 325 mg Finasteride (Proscar -) 5 mg PO DAILY [facility] Last Admin: 02/02/19 09:17 Dose: 5 mg Folic Acid (Folic Acid -) 1 mg PO DAILY [facility] Last Admin: 02/02/19 09:18 Dose: 1 mg IV Flush (Triple Lumen Flush) 4 ml IVPUSH PRN PRN PRN Reason: Protocol Last Admin: 01/31/19 05:32 Dose: 4 ml Meropenem 1 gm/ Dextrose 100 mls @ 200 mls/hr IVPB Q12H [facility] Last Admin: 02/02/19 09:22 Dose: 200 mls/hr Insulin Aspart (Novolog Vial Sliding Scale -) 1 vial SQ ACHS [facility]; Protocol Last Admin: 02/02/19 12:33 Dose: 6 units Insulin Detemir (Levemir Vial) 15 units SQ BID@0700,2200 [facility] Last Admin: 02/02/19 06:05 Dose: 15 units Lactobacillus Acidophilus (Bacid -) 1 tab PO DAILY [facility] Last Admin: 02/02/19 09:18 Dose: 1 tab Metoprolol Succinate (Toprol Xl -) 50 mg PO AM [facility] Last Admin: 02/02/19 06:00 Dose: 50 mg Nystatin (Nystatin Oral Suspension -) 500,000 units PO Q6HPO [facility] Last Admin: 02/02/19 12:33 Dose: 500,000 units Promethazine HCl (Phenergan Injection -) 12.5 mg IVPB Q6H PRN PRN Reason: NAUSEA AND/OR VOMITING Ranitidine HCl (Zantac -) 150 mg PO BID [facility] Last Admin: 02/02/19 09:17 Dose: 150 mg Tamsulosin HCl (Flomax -) 0.4 mg PO DAILY@0830 [facility] Last Admin: 02/02/19 09:17 Dose: 0.4 mg - Objective Vital Signs: Vital Signs Temperature 98.1 F 02/02/19 14:12 Pulse Rate 96 H 02/02/19 14:12 Respiratory Rate 18 02/02/19 14:12 Blood Pressure 115/60 02/02/19 14:12 O2 Sat by Pulse Oximetry (%) 98 02/01/19 21:00 Constitutional: Yes: Calm Eyes: Yes: Conjunctiva Clear HENT: Yes: Atraumatic Neck: Yes: Supple Cardiovascular: Yes: S1, S2 Respiratory: Yes: CTA Bilaterally Gastrointestinal: Yes: Soft Genitourinary: Yes: WNL Edema: Yes Edema: LLE: 1+, RLE: Trace Integumentary: Yes: Other (skin sloughing off) Wound/Incision: Yes: Dressing Dry and Intact Neurological: Yes: Oriented Psychiatric: Yes: Oriented Labs: CBC, BMP 02/02/19 06:25 02/02/19 06:25 INR, PTT INR 1.19 (0.83-1.09) H 01/28/19 09:20 Problem List - Problems (1) AMADOU (acute kidney injury) Code(s): N17.9 - ACUTE KIDNEY FAILURE, UNSPECIFIED (2) CHF (congestive heart failure) Code(s): I50.9 - HEART FAILURE, UNSPECIFIED Qualifiers: Heart failure type: unspecified Qualified Code(s): I50.9 - Heart failure, unspecified (3) CKD (chronic kidney disease) Code(s): N18.9 - CHRONIC KIDNEY DISEASE, UNSPECIFIED Qualifiers: Chronic kidney disease stage: stage 3 (moderate) Qualified Code(s): N18.3 - Chronic kidney disease, stage 3 (moderate) (4) HTN (hypertension) Code(s): I10 - ESSENTIAL (PRIMARY) HYPERTENSION Qualifiers: Hypertension type: essential hypertension Qualified Code(s): I10 - Essential (primary) hypertension (5) IDDM (insulin dependent diabetes mellitus) Code(s): E11.9 - TYPE 2 DIABETES MELLITUS WITHOUT COMPLICATIONS; Z79.4 - EQUIPMENT SPECIALIST (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 OF INSULIN (6) Left leg pain Code(s): M79.605 - PAIN IN LEFT LEG Assessment/Plan Current Medications Generic Name Dose Route Start Last Admin Trade Name Freq PRN Reason Stop Dose Admin Acetaminophen 650 mg 01/25/19 15:01 01/31/19 05:32 Tylenol - PO 650 mg Q6H PRN Administration FEVER Amino Acids 30 ml 01/25/19 17:30 02/02/19 09:17 Prosource No Carb Liquid Pkt PO 30 ml BID@0800,1730 LISA Administration Aspirin 81 mg 01/15/19 10:00 02/02/19 09:18 Asa - PO 81 mg DAILY LISA Administration Atorvastatin Calcium 20 mg 01/15/19 22:00 02/01/19 22:34 Lipitor - PO 20 mg HS LISA Administration Bacitracin 1 applic 01/18/19 11:45 02/02/19 09:18 Bacitracin - TP 1 applic DAILY LISA Administration Clopidogrel Bisulfate 75 mg 01/16/19 07:00 02/02/19 06:05 Plavix - PO 75 mg AM LISA Administration Doxycycline Hyclate 100 mg 02/01/19 18:00 02/02/19 09:17 Vibramycin - PO 100 mg BID@1000,1800 LISA Administration Ferrous Sulfate 325 mg 02/02/19 08:00 02/02/19 09:17 Feosol - PO 325 mg DAILY@0800 LISA Administration Finasteride 5 mg 02/01/19 10:00 02/02/19 09:17 Proscar - PO 5 mg DAILY LISA Administration Folic Acid 1 mg 01/29/19 10:00 02/02/19 09:18 Folic Acid - PO 1 mg DAILY LISA Administration IV Flush 4 ml 01/28/19 08:56 01/31/19 05:32 Triple Lumen Flush IVPUSH 4 ml PRN PRN Administration Protocol Meropenem 1 gm/ Dextrose 100 mls @ 200 mls/hr 01/22/19 22:00 02/02/19 09:22 IVPB 200 mls/hr Q12H LISA Administration Insulin Aspart 1 vial 01/15/19 11:00 02/02/19 12:33 Novolog Vial Sliding Scale - SQ 6 units ACHS LISA Administration Protocol Insulin Detemir 15 units 01/22/19 22:00 02/02/19 06:05 Levemir Vial SQ 15 units BID@0700,2200 LISA Administration Lactobacillus Acidophilus 1 tab 01/31/19 11:45 02/02/19 09:18 Bacid - PO 1 tab DAILY LISA Administration Metoprolol Succinate 50 mg 01/16/19 07:00 02/02/19 06:00 Toprol Xl - PO 50 mg AM LISA Administration Nystatin 500,000 units 02/01/19 12:00 02/02/19 12:33 Nystatin Oral Suspension - PO 500,000 units Q6HPO LISA Administration Promethazine HCl 12.5 mg 01/15/19 16:50 Phenergan Injection - IVPB Q6H PRN NAUSEA AND/OR VOMITING Ranitidine HCl 150 mg 01/28/19 10:00 02/02/19 09:17 Zantac - PO 150 mg BID LISA Administration Tamsulosin HCl 0.4 mg 01/16/19 08:30 02/02/19 09:17 Flomax - PO 0.4 mg DAILY@0830 LISA Administration Impression 1. AMADOU 2. lower ext edema 3. leg pain 4. HTN 5. DM 6. CKD 7. large post void residual 8. cellulitis 9. sepsis Plan - renal function is improving - cont to monitor - repeat labs in am - follow up herson, still pending - avoid nsaids - amadou likely in part from sepsis
[2019-02-02] MEDS: ACETAMINOPHEN 325 MG TABLET (FP) PO PRN (17:47)
--- NOTE | 2019-02-02 18:07 | PN ---
Physical Exam: SUBJECTIVE: Patient seen and examined feels better; denies fever, chill, pain improved OBJECTIVE: Vital Signs Period Temp Pulse Resp BP Sys/Cano Pulse Ox Last 24 Hr 98.1 F-101.0 F 80-98 18-20 115-148/52-85 98 GENERAL: The patient is obese, awake, alert, and fully oriented, in no acute distress. LUNGS: Breath sounds equal, clear to auscultation bilaterally, no wheezes, no crackles, no accessory muscle use. HEART: Regular rate and rhythm, S1, S2 without murmur, rub or gallop. ABDOMEN: Soft, nontender, nondistended, normoactive bowel sounds, no guarding, no rebound, no hepatosplenomegaly, no masses. EXTREMITIES: 2+ pulses, warm, well-perfused, no edema. 2 skin abcesses; one open /one closed right LE/posterior thigh; less indurated, less erythema NEUROLOGICAL: Cranial nerves II through XII grossly intact. Normal speech, gait not observed. PSYCH: Normal mood, normal affect. SKIN: Warm, dry, normal turgor, no rashes or lesions noted Laboratory Results - last 24 hr 01/30/19 01/30/19 02/01/19 08:55 10:00 22:30 WBC RBC Hgb Hct MCV MCH MCHC RDW Plt Count MPV Absolute Neuts (auto) Neutrophils % Lymphocytes % Monocytes % Eosinophils % Basophils % Nucleated RBC % Retic Count Sodium Potassium Chloride Carbon Dioxide Anion Gap BUN Creatinine Creat Clearance w eGFR POC Glucometer 201 Random Glucose Calcium Phosphorus Magnesium Total Bilirubin AST ALT Alkaline Phosphatase LD Total Total Protein Albumin JUAN Screen Negative Blood Type AB POSITIVE Antibody Screen Negative Crossmatch See Detail 02/02/19 02/02/19 02/02/19 05:54 06:00 06:25 WBC 9.3 RBC 3.16 L Hgb 9.3 L Hct 27.1 L MCV 85.9 MCH 29.6 MCHC 34.5 RDW 15.8 Plt Count 350 MPV 7.7 Absolute Neuts (auto) 7.1 Neutrophils % 76.3 Lymphocytes % 10.9 Monocytes % 9.3 Eosinophils % 2.8 Basophils % 0.7 Nucleated RBC % 0 Retic Count 1.52 H Sodium Potassium Chloride Carbon Dioxide Anion Gap BUN Creatinine Creat Clearance w eGFR POC Glucometer 188 Random Glucose Calcium Phosphorus Magnesium Total Bilirubin AST ALT Alkaline Phosphatase LD Total Total Protein Albumin JUAN Screen Blood Type Antibody Screen Crossmatch 02/02/19 02/02/19 02/02/19 06:25 12:04 17:43 WBC RBC Hgb Hct MCV MCH MCHC RDW Plt Count MPV Absolute Neuts (auto) Neutrophils % Lymphocytes % Monocytes % Eosinophils % Basophils % Nucleated RBC % Retic Count Sodium 137 Potassium 4.7 Chloride 107 Carbon Dioxide 23 Anion Gap 6 L BUN 36 H Creatinine 1.7 H Creat Clearance w eGFR 41.18 POC Glucometer 298 207 Random Glucose 189 H Calcium 8.0 L Phosphorus 3.1 Magnesium 1.7 L Total Bilirubin 0.9 AST 16 ALT 12 L Alkaline Phosphatase 81 LD Total 293 H Total Protein 6.9 Albumin 1.7 L JUAN Screen Blood Type Antibody Screen Crossmatch Active Medications Generic Name Dose Route Start Last Admin Trade Name Freq PRN Reason Stop Dose Admin Acetaminophen 650 mg 01/25/19 15:01 02/02/19 17:47 Tylenol - PO 650 mg Q6H PRN Administration FEVER Amino Acids 30 ml 01/25/19 17:30 02/02/19 17:45 Prosource No Carb Liquid Pkt PO 30 ml BID@0800,1730 LISA Administration Aspirin 81 mg 01/15/19 10:00 02/02/19 09:18 Asa - PO 81 mg DAILY LISA Administration Atorvastatin Calcium 20 mg 01/15/19 22:00 02/01/19 22:34 Lipitor - PO 20 mg HS LISA Administration Bacitracin 1 applic 01/18/19 11:45 02/02/19 09:18 Bacitracin - TP 1 applic DAILY LISA Administration Clopidogrel Bisulfate 75 mg 01/16/19 07:00 02/02/19 06:05 Plavix - PO 75 mg AM LISA Administration Doxycycline Hyclate 100 mg 02/01/19 18:00 02/02/19 17:44 Vibramycin - PO 100 mg BID@1000,1800 LISA Administration Ferrous Sulfate 325 mg 02/02/19 08:00 02/02/19 09:17 Feosol - PO 325 mg DAILY@0800 LISA Administration Finasteride 5 mg 02/01/19 10:00 02/02/19 09:17 Proscar - PO 5 mg DAILY LISA Administration Folic Acid 1 mg 01/29/19 10:00 02/02/19 09:18 Folic Acid - PO 1 mg DAILY LISA Administration IV Flush 4 ml 01/28/19 08:56 01/31/19 05:32 Triple Lumen Flush IVPUSH 4 ml PRN PRN Administration Protocol Meropenem 1 gm/ Dextrose 100 mls @ 200 mls/hr 01/22/19 22:00 02/02/19 09:22 IVPB 200 mls/hr Q12H LISA Administration Insulin Aspart 1 vial 01/15/19 11:00 02/02/19 17:44 Novolog Vial Sliding Scale - SQ 4 units ACHS LISA Administration Protocol Insulin Detemir 15 units 01/22/19 22:00 02/02/19 06:05 Levemir Vial SQ 15 units BID@0700,2200 LISA Administration Lactobacillus Acidophilus 1 tab 01/31/19 11:45 02/02/19 09:18 Bacid - PO 1 tab DAILY LISA Administration Metoprolol Succinate 50 mg 01/16/19 07:00 02/02/19 06:00 Toprol Xl - PO 50 mg AM LISA Administration Nystatin 500,000 units 02/01/19 12:00 02/02/19 17:44 Nystatin Oral Suspension - PO 500,000 units Q6HPO LISA Administration Promethazine HCl 12.5 mg 01/15/19 16:50 Phenergan Injection - IVPB Q6H PRN NAUSEA AND/OR VOMITING Ranitidine HCl 150 mg 01/28/19 10:00 02/02/19 09:17 Zantac - PO 150 mg BID LISA Administration Tamsulosin HCl 0.4 mg 01/16/19 08:30 02/02/19 09:17 Flomax - PO 0.4 mg DAILY@0830 LISA Administration ASSESSMENT/PLAN: This is a 59 year old obese male with a history of CKD, DM, HTN, CHF, admitted for sepsis secondary to cellulitis. #sepsis secondary to LE cellulitis with abscess formation; improving -cont IV antibiotics meropenam /doxy -ID following; consider po in am -surgery following #normocytic anemia with iron def anemia: -iron studies + for iron def; replace oral iron #AMADOU on chronic KD -most likely related to sepsis; improving #DM: insulin ss; tight glucose control for healing #CAD: cont asa and plavix DVT ppl :scds Disposition: dc tomorrow pending antibiotic change to po Visit type - Emergency Visit Emergency Visit: Yes ED Registration Date: 01/13/19 Care time: The patient presented to the Emergency Department on the above date and was hospitalized for further evaluation of their emergent condition. - New Patient This patient is new to me today: No - Critical Care Critical Care patient: No
--- NOTE | 2019-02-02 18:26 | PN ---
Teaching Attending Note Name of Resident: Monica Mosley ATTENDING PHYSICIAN STATEMENT I saw and evaluated the patient. I reviewed the resident's note and discussed the case with the resident. I agree with the resident's findings and plan as documented. SUBJECTIVE: Mr Mendez is without complaint today. Says his leg is unchanged. No cp, sob, n/v. OBJECTIVE: Last Vital Signs Temp Pulse Resp BP Pulse Ox 38.3 C H 98 H 18 130/61 98 02/02/19 16:30 02/02/19 16:30 02/02/19 16:30 02/02/19 16:30 02/02/19 09:00 Gen: nad, obese Pulm: ctab w/o w/r/r CV: rrr w/o m/r/g Abd: +bs, s/nt/nd Ext: LLE with edema, wrapped CBC, BMP 02/02/19 06:25 02/02/19 06:25 ASSESSMENT AND PLAN: -case d/w Dr Espinoza -continue merrem and doxycycline -was afebrile, but now with fever -repeat CT scan tomorrow -d/w ID in am since had fever today -renal function continues to improve -continue current management Problem List - Problems (1) Left leg pain Code(s): M79.605 - PAIN IN LEFT LEG (2) AMADOU (acute kidney injury) Code(s): N17.9 - ACUTE KIDNEY FAILURE, UNSPECIFIED (3) CKD (chronic kidney disease) Code(s): N18.9 - CHRONIC KIDNEY DISEASE, UNSPECIFIED Qualifiers: Chronic kidney disease stage: stage 3 (moderate) Qualified Code(s): N18.3 - Chronic kidney disease, stage 3 (moderate) (4) HTN (hypertension) Code(s): I10 - ESSENTIAL (PRIMARY) HYPERTENSION Qualifiers: Hypertension type: essential hypertension Qualified Code(s): I10 - Essential (primary) hypertension (5) IDDM (insulin dependent diabetes mellitus) Code(s): E11.9 - TYPE 2 DIABETES MELLITUS WITHOUT COMPLICATIONS; Z79.4 - SHELTER (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 OF INSULIN (6) Fever Code(s): R50.9 - FEVER, UNSPECIFIED (7) Cellulitis of left lower extremity Code(s): L03.116 - CELLULITIS OF LEFT LOWER LIMB (8) Anemia Code(s): D64.9 - ANEMIA, UNSPECIFIED
[2019-02-02] MEDS: ATORVASTATIN CA 20 MG TABLET (FP) PO SCH (22:42)
[2019-02-03] MEDS: NYSTATIN 500,000 UNITS/5 ML SUSPENSION PO SCH ×5 (01:27→23:00)
[2019-02-03] MEDS: ACETAMINOPHEN 325 MG TABLET (FP) PO PRN (04:30)
[2019-02-03] MEDS: CLOPIDOGREL BISULFATE 75 MG TABLET (FP) PO SCH (06:46)
[2019-02-03] MEDS: INSULIN SLIDING SCALE (NOVOLOG) 1 VIAL SQ SCH ×4 (06:46→22:58)
[2019-02-03] MEDS: INSULIN (LEVEMIR) 100 UNITS/ML UNITS SQ SCH ×2 (06:47→18:40)
[2019-02-03 07:27] LABS: BASO % 0.8 % (0-2.0); EOS % 3.3 % (0-4.5); HEMOGLOBIN 8.7 GM/dL (11.7-16.9); LYMPH % 13.9 % (8-40); MCH 30.1 pg (25.7-33.7); MCHC 34.8 g/dl (32.0-35.9); MEAN CELL VOLUME 86.6 fl (80-96); MEAN PLT VOLUME 7.7 fl (7.5-11.1); PLATELET COUNT 292 K/MM3 (134-434); RBC 2.89 M/mm3 (4.00-5.60); RDW 15.9 % (11.9-15.9); WHITE BLOOD COUNT 8.5 K/mm3 (4.0-10.0)
[2019-02-03 07:57] LABS: ANION GAP 4 MMOL/L (8-16); BLOOD UREA NITROGEN 39 mg/dL (7-18); CALCIUM 8.3 mg/dL (8.5-10.1); CHLORIDE 108 mmol/L (98-107); CO2 24 mmol/L (21-32); CREATININE 1.6 mg/dL (0.55-1.3); GLUCOSE,RANDOM 147 mg/dL (74-106); PHOSPHOROUS 3.2 mg/dL (2.5-4.9); POTASSIUM 4.5 mmol/L (3.5-5.1); SODIUM 136 mmol/L (136-145)
[2019-02-03] MEDS ORDERED: PT OWN MED DRAWER 7, Y5N ONE (09:41)
--- NOTE | 2019-02-03 10:11 | PN ---
Progress Note, Physician History of Present Illness: patient stable had a ct scan awaiting for results spiked fevers - Current Medication List Current Medications: Active Medications Acetaminophen (Tylenol -) 650 mg PO Q6H PRN PRN Reason: FEVER Last Admin: 02/03/19 04:30 Dose: 650 mg Amino Acids (Prosource No Carb Liquid Pkt) 30 ml PO BID@0800,1730 [facility] Last Admin: 02/02/19 17:45 Dose: 30 ml Aspirin (Asa -) 81 mg PO DAILY [facility] Last Admin: 02/02/19 09:18 Dose: 81 mg Atorvastatin Calcium (Lipitor -) 20 mg PO HS [facility] Last Admin: 02/02/19 22:42 Dose: 20 mg Bacitracin (Bacitracin -) 1 applic TP DAILY [facility] Last Admin: 02/02/19 09:18 Dose: 1 applic Clopidogrel Bisulfate (Plavix -) 75 mg PO AM [facility] Last Admin: 02/03/19 06:46 Dose: 75 mg Doxycycline Hyclate (Vibramycin -) 100 mg PO BID@1000,1800 [facility] Last Admin: 02/02/19 17:44 Dose: 100 mg Ferrous Sulfate (Feosol -) 325 mg PO DAILY@0800 [facility] Last Admin: 02/02/19 09:17 Dose: 325 mg Finasteride (Proscar -) 5 mg PO DAILY [facility] Last Admin: 02/02/19 09:17 Dose: 5 mg Folic Acid (Folic Acid -) 1 mg PO DAILY [facility] Last Admin: 02/02/19 09:18 Dose: 1 mg IV Flush (Triple Lumen Flush) 4 ml IVPUSH PRN PRN PRN Reason: Protocol Last Admin: 01/31/19 05:32 Dose: 4 ml Meropenem 1 gm/ Dextrose 100 mls @ 200 mls/hr IVPB Q12H [facility] Last Admin: 02/02/19 22:42 Dose: 200 mls/hr Insulin Aspart (Novolog Vial Sliding Scale -) 1 vial SQ ACHS [facility]; Protocol Last Admin: 02/03/19 06:46 Dose: 2 units Insulin Detemir (Levemir Vial) 15 units SQ BID@0700,2200 [facility] Last Admin: 02/03/19 06:47 Dose: 15 units Lactobacillus Acidophilus (Bacid -) 1 tab PO DAILY [facility] Last Admin: 02/02/19 09:18 Dose: 1 tab Metoprolol Succinate (Toprol Xl -) 50 mg PO AM [facility] Last Admin: 02/03/19 06:46 Dose: 50 mg Nystatin (Nystatin Oral Suspension -) 500,000 units PO Q6HPO [facility] Last Admin: 02/03/19 06:46 Dose: 500,000 units Promethazine HCl (Phenergan Injection -) 12.5 mg IVPB Q6H PRN PRN Reason: NAUSEA AND/OR VOMITING Ranitidine HCl (Zantac -) 150 mg PO BID [facility] Last Admin: 02/02/19 22:42 Dose: 150 mg Tamsulosin HCl (Flomax -) 0.4 mg PO DAILY@0830 [facility] Last Admin: 02/02/19 09:17 Dose: 0.4 mg - Objective Vital Signs: Vital Signs Temperature 99.3 F 02/03/19 02:07 Pulse Rate 90 02/03/19 05:50 Respiratory Rate 18 02/03/19 05:50 Blood Pressure 134/72 02/03/19 05:50 O2 Sat by Pulse Oximetry (%) 97 02/02/19 21:00 Constitutional: Yes: No Distress, Calm Cardiovascular: Yes: Regular Rate and Rhythm Respiratory: Yes: Regular, CTA Bilaterally Gastrointestinal: Yes: Normal Bowel Sounds, Soft Musculoskeletal: Yes: WNL Extremities: Yes: Other (swelling of the leg,flaky skin) Neurological: Yes: Alert, Oriented Psychiatric: Yes: Alert, Oriented Labs: CBC, BMP 02/03/19 06:30 02/03/19 06:30 INR, PTT INR 1.19 (0.83-1.09) H 01/28/19 09:20 Assessment/Plan Problem List - Problems (1) Left leg pain Code(s): M79.605 - PAIN IN LEFT LEG (2) AMADOU (acute kidney injury) Code(s): N17.9 - ACUTE KIDNEY FAILURE, UNSPECIFIED (3) CKD (chronic kidney disease) Code(s): N18.9 - CHRONIC KIDNEY DISEASE, UNSPECIFIED Qualifiers: Chronic kidney disease stage: stage 2 (mild) Qualified Code(s): N18.2 - Chronic kidney disease, stage 2 (mild) (4) HTN (hypertension) Code(s): I10 - ESSENTIAL (PRIMARY) HYPERTENSION Qualifiers: Hypertension type: essential hypertension Qualified Code(s): I10 - Essential (primary) hypertension (5) IDDM (insulin dependent diabetes mellitus) Code(s): E11.9 - TYPE 2 DIABETES MELLITUS WITHOUT COMPLICATIONS; Z79.4 - RETIREMENT (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 OF INSULIN 6 leukocytosis 7 thrush plan continue current mgmt will continue iv abx patient still spiking will see what the imaging studies show rest as per the team
[2019-02-03] MEDS: AMINO ACIDS/PROTEIN HYDROLYS 30 ML LIQUID.PKT PO SCH ×2 (11:08→17:26)
[2019-02-03] MEDS: FOLIC ACID 1 MG TABLET (FP) PO SCH (11:10)
[2019-02-03] MEDS: DOXYCYCLINE HYCLATE 100 MG CAPSULE PO SCH ×2 (11:10→17:26)
[2019-02-03] MEDS: LACTOBACILLUS ACIDOPHILUS 1 TABLET PO SCH (11:10)
[2019-02-03] MEDS: MEROPENEM 1 GM in DEXTROSE 5%-WATER 100 ML IVPB SCH ×2 (11:10→22:35)
[2019-02-03] MEDS: TAMSULOSIN HCL 0.4 MG CAP PO SCH (11:10)
[2019-02-03] MEDS: FERROUS SO4 325 MG TABLET (FP) PO SCH (11:10)
[2019-02-03] MEDS: ASPIRIN 81 MG CHEWABLE TABLETS PO SCH (11:10)
[2019-02-03] MEDS: RANITIDINE HCL 150 MG TABLET (FP) PO SCH ×2 (11:10→22:33)
[2019-02-03] MEDS: FINASTERIDE 5 MG TABLET (FP) PO SCH (11:10)
--- NOTE | 2019-02-03 13:13 | PN ---
Progress Note, Physician History of Present Illness: Pt seen and examined at bedside. He is awake and alert. He denies fevers or chills. - Current Medication List Current Medications: Active Medications Acetaminophen (Tylenol -) 650 mg PO Q6H PRN PRN Reason: FEVER Last Admin: 02/03/19 04:30 Dose: 650 mg Amino Acids (Prosource No Carb Liquid Pkt) 30 ml PO BID@0800,1730 [facility] Last Admin: 02/03/19 11:08 Dose: Not Given Aspirin (Asa -) 81 mg PO DAILY [facility] Last Admin: 02/03/19 11:10 Dose: 81 mg Atorvastatin Calcium (Lipitor -) 20 mg PO HS [facility] Last Admin: 02/02/19 22:42 Dose: 20 mg Bacitracin (Bacitracin -) 1 applic TP DAILY [facility] Last Admin: 02/02/19 09:18 Dose: 1 applic Clopidogrel Bisulfate (Plavix -) 75 mg PO AM [facility] Last Admin: 02/03/19 06:46 Dose: 75 mg Doxycycline Hyclate (Vibramycin -) 100 mg PO BID@1000,1800 [facility] Last Admin: 02/03/19 11:10 Dose: 100 mg Ferrous Sulfate (Feosol -) 325 mg PO DAILY@0800 [facility] Last Admin: 02/03/19 11:10 Dose: 325 mg Finasteride (Proscar -) 5 mg PO DAILY [facility] Last Admin: 02/03/19 11:10 Dose: 5 mg Folic Acid (Folic Acid -) 1 mg PO DAILY [facility] Last Admin: 02/03/19 11:10 Dose: 1 mg IV Flush (Triple Lumen Flush) 4 ml IVPUSH PRN PRN PRN Reason: Protocol Last Admin: 01/31/19 05:32 Dose: 4 ml Meropenem 1 gm/ Dextrose 100 mls @ 200 mls/hr IVPB Q12H [facility] Last Admin: 02/03/19 11:10 Dose: 200 mls/hr Insulin Aspart (Novolog Vial Sliding Scale -) 1 vial SQ ACHS [facility]; Protocol Last Admin: 02/03/19 11:57 Dose: 6 units Insulin Detemir (Levemir Vial) 15 units SQ BID@0700,2200 [facility] Last Admin: 02/03/19 06:47 Dose: 15 units Lactobacillus Acidophilus (Bacid -) 1 tab PO DAILY [facility] Last Admin: 02/03/19 11:10 Dose: 1 tab Metoprolol Succinate (Toprol Xl -) 50 mg PO AM [facility] Last Admin: 02/03/19 06:46 Dose: 50 mg Nystatin (Nystatin Oral Suspension -) 500,000 units PO Q6HPO [facility] Last Admin: 02/03/19 11:57 Dose: 500,000 units Promethazine HCl (Phenergan Injection -) 12.5 mg IVPB Q6H PRN PRN Reason: NAUSEA AND/OR VOMITING Ranitidine HCl (Zantac -) 150 mg PO BID [facility] Last Admin: 02/03/19 11:10 Dose: 150 mg Tamsulosin HCl (Flomax -) 0.4 mg PO DAILY@0830 [facility] Last Admin: 02/03/19 11:10 Dose: 0.4 mg - Objective Vital Signs: Vital Signs Temperature 99.3 F 02/03/19 02:07 Pulse Rate 90 02/03/19 05:50 Respiratory Rate 18 02/03/19 05:50 Blood Pressure 134/72 02/03/19 05:50 O2 Sat by Pulse Oximetry (%) 97 02/02/19 21:00 Constitutional: Yes: Calm Eyes: Yes: Conjunctiva Clear HENT: Yes: Atraumatic Neck: Yes: Supple Cardiovascular: Yes: S1, S2 Respiratory: Yes: CTA Bilaterally Gastrointestinal: Yes: Soft Genitourinary: Yes: WNL Edema: Yes Edema: LLE: 1+ Neurological: Yes: Oriented Psychiatric: Yes: Oriented Labs: CBC, BMP 02/03/19 06:30 02/03/19 06:30 INR, PTT INR 1.19 (0.83-1.09) H 01/28/19 09:20 Problem List - Problems (1) AMADOU (acute kidney injury) Code(s): N17.9 - ACUTE KIDNEY FAILURE, UNSPECIFIED (2) CHF (congestive heart failure) Code(s): I50.9 - HEART FAILURE, UNSPECIFIED Qualifiers: Heart failure type: unspecified Qualified Code(s): I50.9 - Heart failure, unspecified (3) CKD (chronic kidney disease) Code(s): N18.9 - CHRONIC KIDNEY DISEASE, UNSPECIFIED Qualifiers: Chronic kidney disease stage: stage 3 (moderate) Qualified Code(s): N18.3 - Chronic kidney disease, stage 3 (moderate) (4) HTN (hypertension) Code(s): I10 - ESSENTIAL (PRIMARY) HYPERTENSION Qualifiers: Hypertension type: essential hypertension Qualified Code(s): I10 - Essential (primary) hypertension (5) IDDM (insulin dependent diabetes mellitus) Code(s): E11.9 - TYPE 2 DIABETES MELLITUS WITHOUT COMPLICATIONS; Z79.4 - COTTON TIER (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 OF INSULIN (6) Left leg pain Code(s): M79.605 - PAIN IN LEFT LEG Assessment/Plan Current Medications Generic Name Dose Route Start Last Admin Trade Name Freq PRN Reason Stop Dose Admin Acetaminophen 650 mg 01/25/19 15:01 02/03/19 04:30 Tylenol - PO 650 mg Q6H PRN Administration FEVER Amino Acids 30 ml 01/25/19 17:30 02/03/19 11:08 Prosource No Carb Liquid Pkt PO Not Given BID@0800,1730 [facility] Aspirin 81 mg 01/15/19 10:00 02/03/19 11:10 Asa - PO 81 mg DAILY [facility] Administration Atorvastatin Calcium 20 mg 01/15/19 22:00 02/02/19 22:42 Lipitor - PO 20 mg HS [facility] Administration Bacitracin 1 applic 01/18/19 11:45 02/02/19 09:18 Bacitracin - TP 1 applic DAILY [facility] Administration Clopidogrel Bisulfate 75 mg 01/16/19 07:00 02/03/19 06:46 Plavix - PO 75 mg AM [facility] Administration Doxycycline Hyclate 100 mg 02/01/19 18:00 02/03/19 11:10 Vibramycin - PO 100 mg BID@1000,1800 [facility] Administration Ferrous Sulfate 325 mg 02/02/19 08:00 02/03/19 11:10 Feosol - PO 325 mg DAILY@0800 [facility] Administration Finasteride 5 mg 02/01/19 10:00 02/03/19 11:10 Proscar - PO 5 mg DAILY [facility] Administration Folic Acid 1 mg 01/29/19 10:00 02/03/19 11:10 Folic Acid - PO 1 mg DAILY [facility] Administration IV Flush 4 ml 01/28/19 08:56 01/31/19 05:32 Triple Lumen Flush IVPUSH 4 ml PRN PRN Administration Protocol Meropenem 1 gm/ Dextrose 100 mls @ 200 mls/hr 01/22/19 22:00 02/03/19 11:10 IVPB 200 mls/hr Q12H [facility] Administration Insulin Aspart 1 vial 01/15/19 11:00 02/03/19 11:57 Novolog Vial Sliding Scale - SQ 6 units ACHS [facility] Administration Protocol Insulin Detemir 15 units 01/22/19 22:00 02/03/19 06:47 Levemir Vial SQ 15 units BID@0700,2200 [facility] Administration Lactobacillus Acidophilus 1 tab 01/31/19 11:45 02/03/19 11:10 Bacid - PO 1 tab DAILY [facility] Administration Metoprolol Succinate 50 mg 01/16/19 07:00 02/03/19 06:46 Toprol Xl - PO 50 mg AM [facility] Administration Nystatin 500,000 units 02/01/19 12:00 02/03/19 11:57 Nystatin Oral Suspension - PO 500,000 units Q6HPO [facility] Administration Promethazine HCl 12.5 mg 01/15/19 16:50 Phenergan Injection - IVPB Q6H PRN NAUSEA AND/OR VOMITING Ranitidine HCl 150 mg 01/28/19 10:00 02/03/19 11:10 Zantac - PO 150 mg BID [facility] Administration Tamsulosin HCl 0.4 mg 01/16/19 08:30 02/03/19 11:10 Flomax - PO 0.4 mg DAILY@0830 [facility] Administration Impression 1. AMADOU 2. lower ext edema 3. leg pain 4. HTN 5. DM 6. CKD 7. large post void residual 8. cellulitis 9. 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
--- NOTE | 2019-02-03 17:09 | PN ---
Physical Exam: SUBJECTIVE: Patient seen and examined OBJECTIVE: Vital Signs Period Temp Pulse Resp BP Sys/Cano Pulse Ox Last 24 Hr 98.3 F-99.7 F 78-96 18-20 116-151/65-77 97-97 GENERAL: The patient is awake, alert, and fully oriented, in no acute distress. HEAD: Normal with no signs of trauma. EYES: PERRL, extraocular movements intact, sclera anicteric, conjunctiva clear. No ptosis. ENT: Ears normal, nares patent, oropharynx clear without exudates, moist mucous membranes. NECK: Trachea midline, full range of motion, supple. LUNGS: Breath sounds equal, clear to auscultation bilaterally, no wheezes, no crackles, no accessory muscle use. HEART: Regular rate and rhythm, S1, S2 without murmur, rub or gallop. ABDOMEN: Soft, nontender, nondistended, normoactive bowel sounds, no guarding, no rebound, no hepatosplenomegaly, no masses. EXTREMITIES: 2+ pulses, warm, well-perfused, no edema. NEUROLOGICAL: Cranial nerves II through XII grossly intact. Normal speech, gait not observed. PSYCH: Normal mood, normal affect. SKIN: Warm, dry, normal turgor, no rashes or lesions noted Laboratory Results - last 24 hr 01/30/19 02/02/19 02/02/19 10:00 06:25 17:43 WBC RBC Hgb Hct MCV MCH MCHC RDW Plt Count MPV Absolute Neuts (auto) Neutrophils % Lymphocytes % Monocytes % Eosinophils % Basophils % Nucleated RBC % Haptoglobin 283 H Sodium Potassium Chloride Carbon Dioxide Anion Gap BUN Creatinine Creat Clearance w eGFR POC Glucometer 207 Random Glucose Calcium Phosphorus Magnesium Blood Type AB POSITIVE Antibody Screen Negative Crossmatch See Detail 02/02/19 02/03/19 02/03/19 22:41 06:30 06:30 WBC 8.5 RBC 2.89 L Hgb 8.7 L Hct 25.0 L MCV 86.6 MCH 30.1 MCHC 34.8 RDW 15.9 Plt Count 292 MPV 7.7 Absolute Neuts (auto) 6.3 Neutrophils % 74.0 Lymphocytes % 13.9 D Monocytes % 8.0 Eosinophils % 3.3 Basophils % 0.8 Nucleated RBC % 0 Haptoglobin Sodium 136 Potassium 4.5 Chloride 108 H Carbon Dioxide 24 Anion Gap 4 L BUN 39 H Creatinine 1.6 H Creat Clearance w eGFR 44.16 POC Glucometer 181 Random Glucose 147 H Calcium 8.3 L Phosphorus 3.2 Magnesium 2.0 Blood Type Antibody Screen Crossmatch 02/03/19 02/03/19 02/03/19 06:45 11:35 16:40 WBC RBC Hgb Hct MCV MCH MCHC RDW Plt Count MPV Absolute Neuts (auto) Neutrophils % Lymphocytes % Monocytes % Eosinophils % Basophils % Nucleated RBC % Haptoglobin Sodium Potassium Chloride Carbon Dioxide Anion Gap BUN Creatinine Creat Clearance w eGFR POC Glucometer 160 288 257 Random Glucose Calcium Phosphorus Magnesium Blood Type Antibody Screen Crossmatch Active Medications Generic Name Dose Route Start Last Admin Trade Name Freq PRN Reason Stop Dose Admin Acetaminophen 650 mg 01/25/19 15:01 02/03/19 04:30 Tylenol - PO 650 mg Q6H PRN Administration FEVER Amino Acids 30 ml 01/25/19 17:30 02/03/19 11:08 Prosource No Carb Liquid Pkt PO Not Given BID@0800,1730 [facility] Aspirin 81 mg 01/15/19 10:00 02/03/19 11:10 Asa - PO 81 mg DAILY [facility] Administration Atorvastatin Calcium 20 mg 01/15/19 22:00 02/02/19 22:42 Lipitor - PO 20 mg HS [facility] Administration Bacitracin 1 applic 01/18/19 11:45 02/02/19 09:18 Bacitracin - TP 1 applic DAILY [facility] Administration Clopidogrel Bisulfate 75 mg 01/16/19 07:00 02/03/19 06:46 Plavix - PO 75 mg AM [facility] Administration Doxycycline Hyclate 100 mg 02/01/19 18:00 02/03/19 11:10 Vibramycin - PO 100 mg BID@1000,1800 [facility] Administration Ferrous Sulfate 325 mg 02/02/19 08:00 02/03/19 11:10 Feosol - PO 325 mg DAILY@0800 [facility] Administration Finasteride 5 mg 02/01/19 10:00 02/03/19 11:10 Proscar - PO 5 mg DAILY [facility] Administration Folic Acid 1 mg 01/29/19 10:00 02/03/19 11:10 Folic Acid - PO 1 mg DAILY [facility] Administration IV Flush 4 ml 01/28/19 08:56 01/31/19 05:32 Triple Lumen Flush IVPUSH 4 ml PRN PRN Administration Protocol Meropenem 1 gm/ Dextrose 100 mls @ 200 mls/hr 01/22/19 22:00 02/03/19 11:10 IVPB 200 mls/hr Q12H [facility] Administration Insulin Aspart 1 vial 01/15/19 11:00 02/03/19 11:57 Novolog Vial Sliding Scale - SQ 6 units ACHS [facility] Administration Protocol Insulin Detemir 15 units 01/22/19 22:00 02/03/19 06:47 Levemir Vial SQ 15 units BID@0700,2200 [facility] Administration Lactobacillus Acidophilus 1 tab 01/31/19 11:45 02/03/19 11:10 Bacid - PO 1 tab DAILY [facility] Administration Metoprolol Succinate 50 mg 01/16/19 07:00 02/03/19 06:46 Toprol Xl - PO 50 mg AM [facility] Administration Nystatin 500,000 units 02/01/19 12:00 02/03/19 11:57 Nystatin Oral Suspension - PO 500,000 units Q6HPO [facility] Administration Promethazine HCl 12.5 mg 01/15/19 16:50 Phenergan Injection - IVPB Q6H PRN NAUSEA AND/OR VOMITING Ranitidine HCl 150 mg 01/28/19 10:00 02/03/19 11:10 Zantac - PO 150 mg BID [facility] Administration Tamsulosin HCl 0.4 mg 01/16/19 08:30 02/03/19 11:10 Flomax - PO 0.4 mg DAILY@0830 [facility] Administration ASSESSMENT/PLAN: 59 year old male with history of DM 2, HTN, HLD, PAD, CAD s/p PCI, CKD 3, presented to the ED with LLE pain, found to have infected LLE ulcer. #cellulitis CORY; ulcer -ct scan noted;increased swelling; possible abcess/fascitis -vascular notified -per my exam faint pedal pulse of right foot -arterial doppler -cont IV antibiotic #AMADOU on CKD -improving; ml sec to sepsis -avoid nephrotoxins #IDDM - insulin ss -bgm #HTN -metoprolol ##normocytic anemia with iron def anemia: -iron studies + for iron def; -replace oral iron -transfuse if <7 #CAD: -asa/plavix DVT ppl gi ppl Disposition: inpatient med surg Visit type - Emergency Visit Emergency Visit: Yes ED Registration Date: 01/13/19 Care time: The patient presented to the Emergency Department on the above date and was hospitalized for further evaluation of their emergent condition. - New Patient This patient is new to me today: No - Critical Care Critical Care patient: No
[2019-02-03] MEDS: BACITRACIN 15 GM TUBE TOPICAL OINTMENT TP SCH (17:26)
--- NOTE | 2019-02-03 17:30 | PN ---
Teaching Attending Note Name of Resident: Monica Mosley ATTENDING PHYSICIAN STATEMENT I saw and evaluated the patient. I reviewed the resident's note and discussed the case with the resident. I agree with the resident's findings and plan as documented with exceptions below. SUBJECTIVE: patient seen and examined. left thigh pain overall unchanged, no new fevers, chills or concerns. OBJECTIVE: Vital Signs Period Temp Pulse Resp BP Sys/Cano Pulse Ox Last 24 Hr 98.3 F-99.7 F 78-96 18-20 116-151/65-77 97-97 Intake & Output 01/31/19 02/01/19 02/02/19 02/03/19 23:59 23:59 23:59 23:59 Intake Total 700 950 440 Output Total 400 Balance 700 950 40 Weight 247 lb 1.6 oz 247 lb 14.4 oz 248 lb 1.6 oz General: sitting in bed in no acute distress Chest: CTAB, no rales or wheezing Abdomen;Soft, obese, NT Extremities: left thigh upper 1/3rd induration with opening with dried yellowish drainage, multiple areas of induration with mild tenderness over posterior thigh, no discharge expressed, LLE swelling, warm, looks well perfused , unable to palpate DP likely from edema Home Medications Medication Instructions Recorded Aspirin [ASA -] 81 mg PO DAILY 01/13/19 Atorvastatin Ca [Lipitor] 20 mg PO HS 01/13/19 Clopidogrel Bisulfate [Plavix] 75 mg PO AM 01/13/19 Insulin (Novolog 70/30) [Novolog 30 units SQ HS 01/13/19 Mix 70/30 Vial] Insulin (Novolog 70/30) [Novolog 54 units SQ AM 01/13/19 Mix 70/30 Vial] Metoprolol Succinate 50 mg PO AM 01/13/19 Active Medications Acetaminophen (Tylenol -) 650 mg PO Q6H PRN PRN Reason: FEVER Last Admin: 02/03/19 04:30 Dose: 650 mg Amino Acids (Prosource No Carb Liquid Pkt) 30 ml PO BID@0800,1730 [facility] Last Admin: 02/03/19 17:26 Dose: 30 ml Aspirin (Asa -) 81 mg PO DAILY [facility] Last Admin: 02/03/19 11:10 Dose: 81 mg Atorvastatin Calcium (Lipitor -) 20 mg PO [facility] Last Admin: 02/02/19 22:42 Dose: 20 mg Bacitracin (Bacitracin -) 1 applic TP DAILY [facility] Last Admin: 02/03/19 17:26 Dose: 1 applic Clopidogrel Bisulfate (Plavix -) 75 mg PO AM [facility] Last Admin: 02/03/19 06:46 Dose: 75 mg Doxycycline Hyclate (Vibramycin -) 100 mg PO BID@1000,1800 [facility] Last Admin: 02/03/19 17:26 Dose: 100 mg Ferrous Sulfate (Feosol -) 325 mg PO DAILY@0800 [facility] Last Admin: 02/03/19 11:10 Dose: 325 mg Finasteride (Proscar -) 5 mg PO DAILY [facility] Last Admin: 02/03/19 11:10 Dose: 5 mg Folic Acid (Folic Acid -) 1 mg PO DAILY [facility] Last Admin: 02/03/19 11:10 Dose: 1 mg IV Flush (Triple Lumen Flush) 4 ml IVPUSH PRN PRN PRN Reason: Protocol Last Admin: 01/31/19 05:32 Dose: 4 ml Meropenem 1 gm/ Dextrose 100 mls @ 200 mls/hr IVPB Q12H [facility] Last Admin: 02/03/19 11:10 Dose: 200 mls/hr Insulin Aspart (Novolog Vial Sliding Scale -) 1 vial SQ ACHS [facility]; Protocol Last Admin: 02/03/19 17:26 Dose: 6 units Insulin Detemir (Levemir Vial) 15 units SQ BID@0700,2200 [facility] Last Admin: 02/03/19 06:47 Dose: 15 units Lactobacillus Acidophilus (Bacid -) 1 tab PO DAILY [facility] Last Admin: 02/03/19 11:10 Dose: 1 tab Metoprolol Succinate (Toprol Xl -) 50 mg PO AM [facility] Last Admin: 02/03/19 06:46 Dose: 50 mg Nystatin (Nystatin Oral Suspension -) 500,000 units PO Q6HPO [facility] Last Admin: 02/03/19 17:26 Dose: 500,000 units Promethazine HCl (Phenergan Injection -) 12.5 mg IVPB Q6H PRN PRN Reason: NAUSEA AND/OR VOMITING Ranitidine HCl (Zantac -) 150 mg PO BID [facility] Last Admin: 02/03/19 11:10 Dose: 150 mg Tamsulosin HCl (Flomax -) 0.4 mg PO DAILY@0830 [facility] Last Admin: 02/03/19 11:10 Dose: 0.4 mg Laboratory Results - last 24 hr 01/30/19 02/02/19 02/02/19 10:00 06:25 17:43 WBC RBC Hgb Hct MCV MCH MCHC RDW Plt Count MPV Absolute Neuts (auto) Neutrophils % Lymphocytes % Monocytes % Eosinophils % Basophils % Nucleated RBC % Haptoglobin 283 H Sodium Potassium Chloride Carbon Dioxide Anion Gap BUN Creatinine Creat Clearance w eGFR POC Glucometer 207 Random Glucose Calcium Phosphorus Magnesium Blood Type AB POSITIVE Antibody Screen Negative Crossmatch See Detail 02/02/19 02/03/19 02/03/19 22:41 06:30 06:30 WBC 8.5 RBC 2.89 L Hgb 8.7 L Hct 25.0 L MCV 86.6 MCH 30.1 MCHC 34.8 RDW 15.9 Plt Count 292 MPV 7.7 Absolute Neuts (auto) 6.3 Neutrophils % 74.0 Lymphocytes % 13.9 D Monocytes % 8.0 Eosinophils % 3.3 Basophils % 0.8 Nucleated RBC % 0 Haptoglobin Sodium 136 Potassium 4.5 Chloride 108 H Carbon Dioxide 24 Anion Gap 4 L BUN 39 H Creatinine 1.6 H Creat Clearance w eGFR 44.16 POC Glucometer 181 Random Glucose 147 H Calcium 8.3 L Phosphorus 3.2 Magnesium 2.0 Blood Type Antibody Screen Crossmatch 02/03/19 02/03/19 02/03/19 06:45 11:35 16:40 WBC RBC Hgb Hct MCV MCH MCHC RDW Plt Count MPV Absolute Neuts (auto) Neutrophils % Lymphocytes % Monocytes % Eosinophils % Basophils % Nucleated RBC % Haptoglobin Sodium Potassium Chloride Carbon Dioxide Anion Gap BUN Creatinine Creat Clearance w eGFR POC Glucometer 160 288 257 Random Glucose Calcium Phosphorus Magnesium Blood Type Antibody Screen Crossmatch Microbiology 01/26/19 18:00 Blood - Peripheral Venous Blood Culture - Final NO GROWTH AFTER 5 DAYS INCUBATION 01/26/19 18:00 Blood - Peripheral Venous Blood Culture - Final NO GROWTH AFTER 5 DAYS INCUBATION 01/29/19 10:50 Wound-Other Gram Stain - Final 01/29/19 10:50 Wound-Other Wound Culture - Final NO GROWTH AFTER 48 HOURS INCUBATION 01/27/19 07:10 Urine - Urine Clean Catch Urine Culture - Final NO GROWTH OBTAINED 01/22/19 06:30 Blood - Peripheral Venous Blood Culture - Final NO GROWTH AFTER 5 DAYS INCUBATION 01/22/19 06:30 Blood - Peripheral Venous Blood Culture - Final NO GROWTH AFTER 5 DAYS INCUBATION 01/23/19 20:30 Stool Clostridium difficile Antigen (AMBER) - Final 01/23/19 20:30 Stool Clostridium difficile Toxin Assay - Final 01/17/19 14:58 Blood - Peripheral Venous Blood Culture - Final NO GROWTH AFTER 5 DAYS INCUBATION 01/17/19 13:50 Blood - Peripheral Venous Blood Culture - Final NO GROWTH AFTER 5 DAYS INCUBATION 01/18/19 12:00 Calf - Left Posterior Gram Stain - Final 01/18/19 12:00 Calf - Left Posterior Wound Culture - Final Mr Shannon Aureus 01/17/19 13:35 Urine - Urine Lee Urine Culture - Final NO GROWTH OBTAINED CT LE results reviewed ASSESSMENT AND PLAN: 59 yom with PMHx of IDDM, HTN, HLD, PAD, CAD s/p PCI, CKD, admitted with LLE pain, AMADOU. -LLE cellulitis, suspicion for abscess, ?fascitis -AMADOU, suspect from infection/urinary retention -IDDM -HTN -Acute on chronic anemia, suspect multifactorial from iron deficiency, renal dysfunction s/p 3 units PRBC -HLD -PAD -CAD s/p PCI Plan: repeat CT LE noted, suspicious for abscess/?fascitis. case discussed with Kiana, based on chronicity of symptoms and overall stable hemodynamics, do not suspect necrotizing fascitis. LLE warm, looks well perfused, pulses difficult to palpate given LLE edema as discussed with him. Will get arterial duplex. Also recommends surgical consult. Dr. Oscar consulted, case discussed. Will follow up for possible surgical intervention vs IR guided drainage. Meropenem/doxycycline, LLE elevated. renal input noted. Cr improved. Voiding trial pending surgical plans. Continue flomax. renal/bladder US noted. s/p 3 units PRBC, h/h stable, monitor for now. Continue PO iron suppl. Increase levemir to 20 units BID. ISS, diabetic diet. Continue ASA/plavix Start heparin subq BID with close monitoring of h/h. Dispo pending clinical improvement and surgical plans. Plan discussed with patient in detail, all questions answered. Care co-ordinated with vascular surgery, surgery, ID.
[2019-02-03] MEDS: ATORVASTATIN CA 20 MG TABLET (FP) PO SCH (22:33)
--- NOTE | 2019-02-04 03:35 | CONSULT ---
Consult Consult Specialty:: General Surgery Referred by:: Colton Petersen Reason for Consultation:: LLE swelling, fluid present on CT, ?? in fascial planes, fevers - History of Present Illness Chief Complaint: LLE pain History of Present Illness: 59yo M with multiple medical problems, has been hospitalized about 3 weeks on medicine after falling at home from sharp pain in upper back of left leg and not being able to get up. Pt reports calling for ambulance, and being down "about 10 minutes." He is not the best historian. Denies pain elsewhere, fever/ chills at home prior to hospitalization, N/V, abd pain, urinary or bowel problems, WORRELL, dizziness, recent cold/cough. He did not realize his left leg was swollen until it was noted by the EMT. He has had multiple imaging studies, including CT earlier () showing increasing changes of edema/fluid pockets in left mostly posterior leg in distal thigh and lower leg, some laterally, few areas medially, now with some fluid in fascial planes suggesting possibility of fasciitis. Surgery was asked to evaluate. Ortho saw him shortly after admission in December, and found no acute need for intervention, but advised elevation of the leg, which has not really been done on a regular basis. He is seen and examined in bed, with nurse present, and he gives the above history. He has been on antibiotics per ID, and a culture swab taken of a weeping area on the upper back left calf in late Dec grew MRSA. He has recently been spiking fevers. Given CKD, all imaging has been done without IV contrast, limiting evaluation. WBC on admission was 11's, which stephany to peak in low 20s 2wks ago, and has been normal for the last week. Albumin last was 1.7. HbA1C had been 8. He reports not having a good appetite, but trying to eat what he is brought. He has had transfusion of 3 units PRBC since admission. He is on Meropenem and Doxycycline per ID. - History Source History Provided By: Patient, Medical Record Limitations to Obtaining History: Poor Historian - Past Medical History Cardio/Vascular: Yes: CAD, CHF (per patient), HTN, Hyperlipdemia Renal/: Yes: Renal Inusuff Infectious Disease: Yes: MRSA Endocrine: Yes: Diabetes Mellitus - Past Surgical History Past Surgical History: Yes: Amputation (right toes, multiple) - Alcohol/Substance Use Hx Alcohol Use: Yes (beer on special occasions) History of Substance Use: reports: None - Smoking History Smoking history: Former smoker Have you smoked in the past 12 months: Yes Aproximately how many cigarettes per day: 20 (for many years) If you are a former smoker, when did you quit?: before last year - Social History 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 Home Medications - Allergies Allergies/Adverse Reactions: Allergies Allergy/AdvReac Type Severity Reaction Status Date / Time No Known Allergies Allergy Verified 01/13/19 16:49 - Home Medications Home Medications: Ambulatory Orders Aspirin [ASA -] 81 mg PO DAILY 01/13/19 Atorvastatin Ca [Lipitor] 20 mg PO HS 01/13/19 Clopidogrel Bisulfate [Plavix] 75 mg PO AM 01/13/19 Insulin (Novolog 70/30) [Novolog Mix 70/30 Vial] 30 units SQ HS 01/13/19 Insulin (Novolog 70/30) [Novolog Mix 70/30 Vial] 54 units SQ AM 01/13/19 Metoprolol Succinate 50 mg PO AM 01/13/19 Family Disease History - Family Disease History Family History: Unable to Obtain (poor historian, noncontributory) Review of Systems - Review of Systems Constitutional: reports: Fever (in hospital). denies: Chills (denies F/C at home pre-hospital) Eyes: denies: Blurred Vision, Recent Change in Vision HENT: reports: Other (almost edentulous). denies: Difficult Swallowing, Throat Pain Neck: denies: Swollen Glands, Tenderness Cardiovascular: denies: Chest Pain, Palpitations Respiratory: denies: Cough, SOB Gastrointestinal: denies: Abdominal Pain, Constipation, Diarrhea, Nausea, Vomiting Genitourinary: denies: Burning, Dysuria Musculoskeletal: reports: Extremity Pain (left lower leg, in back, with hpi), Other (whole left leg swollen). denies: Back Pain Integumentary: reports: Wound (two open areas at posterior left upper calf), Other (dry, flaking skin on left lower leg/foot) Neurological: denies: Dizziness, Headache Physical Exam Vital Signs: Vital Signs Temperature 99.9 F H 02/04/19 02:00 Pulse Rate 93 H 02/04/19 02:00 Respiratory Rate 20 02/04/19 02:00 Blood Pressure 138/57 L 02/04/19 02:00 O2 Sat by Pulse Oximetry (%) 100 02/03/19 21:00 Constitutional: Yes: Well Nourished, No Distress, Calm Eyes: Yes: Conjunctiva Clear, EOM Intact HENT: Yes: Atraumatic, Normocephalic, Other (few teeth left) Neck: Yes: Supple, Trachea Midline Cardiovascular: Yes: Tachycardia. No: Pulse Irregular Respiratory: Yes: Regular, CTA Bilaterally Gastrointestinal: Yes: Normal Bowel Sounds, Soft. No: Distention, Tenderness ...Rectal Exam: Yes: Deferred Renal/: No: Lee Present, Incontinence Musculoskeletal: Yes: Joint Swelling (mild left knee). No: Joint Stiffness Extremities: Yes: Amputation (right toes, multiple), Calf Tenderness (left, over whole posterior lower leg and parts of medial/lateral aspect, where subtle lumpy areas are, couple medial mid and upper lower leg, posterior along most of lower leg but not directly behind knee), Other (some subtle lumpy-feeling areas on medial left lower leg in context of whole leg swelling). No: Cool, Cyanosis , Erythema Edema: Yes Edema: LLE: 2+ (throughout, not pitting, less in thigh) Peripheral Pulses WNL: No (difficult to palpate left pedal secondary to edema, possibly felt) Integumentary: Yes: Other (two small open areas at posterior left upper calf - one small triangular pale white/yellow base, superficial, weeping clear fluid; one small irregular superficially granulating site with clean, red base; no surrounding erythema, mildly tender over these and other areas; flaking dry skin over much of lower left leg/ankle/foot). No: Erythema, Jaundice, Rash Wound/Incision: Yes: Dressing Dry and Intact (LLE), Dressing Removed (and replaced), Draining (weeping small serous fluid only). No: Reddened Neurological: Yes: Alert, Oriented (but tired) Psychiatric: Yes: Alert, Oriented Labs: CBC, BMP 02/03/19 06:30 02/03/19 06:30 CMP Sodium 136 mmol/L (136-145) 02/03/19 06:30 Potassium 4.5 mmol/L (3.5-5.1) 02/03/19 06:30 Chloride 108 mmol/L (98-107) H 02/03/19 06:30 Carbon Dioxide 24 mmol/L (21-32) 02/03/19 06:30 Anion Gap 4 MMOL/L (8-16) L 02/03/19 06:30 BUN 39 mg/dL (7-18) H 02/03/19 06:30 Creatinine 1.6 mg/dL (0.55-1.3) H 02/03/19 06:30 Creat Clearance w eGFR 44.16 (>60) 02/03/19 06:30 POC Glucometer 178 UNITS (80-120) 02/03/19 22:39 Random Glucose 147 mg/dL (74-106) H 02/03/19 06:30 Hemoglobin A1c % 8.0 % (4.2-6.3) H 01/14/19 05:30 Calcium 8.3 mg/dL (8.5-10.1) L 02/03/19 06:30 Phosphorus 3.2 mg/dL (2.5-4.9) 02/03/19 06:30 Magnesium 2.0 mg/dL (1.8-2.4) 02/03/19 06:30 Iron 14 ug/dL (38-169) L 01/28/19 06:00 TIBC 156 ug/dL (250-450) L 01/28/19 06:00 Iron Saturation 9 % (15-55) L 01/28/19 06:00 Total Bilirubin 0.9 mg/dL (0.2-1) 02/02/19 06:25 AST 16 U/L (15-37) 02/02/19 06:25 ALT 12 U/L (13-61) L 02/02/19 06:25 Alkaline Phosphatase 81 U/L (45-117) 02/02/19 06:25 Creatine Kinase 163 U/L (26-308) 01/13/19 18:47 LD Total 293 U/L (87-246) H 02/02/19 06:25 Creatine Kinase Index 1.5 % (0.0-5.0) 01/13/19 18:47 CK-MB (CK-2) 2.6 ng/mL (0.5-3.6) 01/13/19 18:47 Troponin I 0.06 ng/ml (0.00-0.05) H 01/14/19 01:37 B-Natriuretic Peptide 4724.0 pg/ml (5-125) H 01/13/19 17:30 C-Reactive Protein 12.6 MG/DL (0.00-0.3) H 01/29/19 05:40 Total Protein 6.9 g/dl (6.4-8.2) 02/02/19 06:25 Albumin 1.7 g/dl (3.4-5.0) L 02/02/19 06:25 Triglycerides 101 mg/dL (0-150) 01/14/19 05:30 Cholesterol 133 mg/dL (50-200) 01/14/19 05:30 Total LDL Cholesterol 59 mg/dL (5-100) 01/14/19 05:30 HDL Cholesterol 30 mg/dL (40-60) L 01/14/19 05:30 Vitamin B12 1793 pg/ml (193-986) H 01/28/19 06:00 Serum Folate 5 ng/mL (3.1-17.5) 01/28/19 06:00 TSH 0.87 uIU/ml (0.358-3.74) 01/14/19 05:30 INR, PTT INR 1.19 (0.83-1.09) H 01/28/19 09:20 Urine Test Results Urine Color Yellow 01/29/19 09:00 Urine Appearance Slcloudy 01/29/19 09:00 Urine pH 5.0 (5.0-8.0) 01/29/19 09:00 Ur Specific [place] 1.015 (1.010-1.035) 01/29/19 09:00 Urine Protein 2+ (NEGATIVE) H 01/29/19 09:00 Urine Glucose (UA) 1+ (NEGATIVE) H 01/29/19 09:00 Urine Ketones Negative (NEGATIVE) 01/29/19 09:00 Urine Blood 1+ (NEGATIVE) H 01/29/19 09:00 Urine Nitrite Negative (NEGATIVE) 01/29/19 09:00 Urine Bilirubin Negative (<2.0 mg/dL) 01/29/19 09:00 Ur Leukocyte Esterase Negative (NEGATIVE) 01/29/19 09:00 Ur Epithelial Cells Rare /HPF (FEW) 01/29/19 09:00 Urine Mucus Rare 01/17/19 13:35 Microbiology 01/26/19 18:00 Blood - Peripheral Venous Blood Culture - Final NO GROWTH AFTER 5 DAYS INCUBATION 01/26/19 18:00 Blood - Peripheral Venous Blood Culture - Final NO GROWTH AFTER 5 DAYS INCUBATION 01/29/19 10:50 Wound-Other Gram Stain - Final 01/29/19 10:50 Wound-Other Wound Culture - Final NO GROWTH AFTER 48 HOURS INCUBATION 01/27/19 07:10 Urine - Urine Clean Catch Urine Culture - Final NO GROWTH OBTAINED 01/22/19 06:30 Blood - Peripheral Venous Blood Culture - Final NO GROWTH AFTER 5 DAYS INCUBATION 01/22/19 06:30 Blood - Peripheral Venous Blood Culture - Final NO GROWTH AFTER 5 DAYS INCUBATION 01/23/19 20:30 Stool Clostridium difficile Antigen (AMBER) - Final 01/23/19 20:30 Stool Clostridium difficile Toxin Assay - Final 01/17/19 14:58 Blood - Peripheral Venous Blood Culture - Final NO GROWTH AFTER 5 DAYS INCUBATION 01/17/19 13:50 Blood - Peripheral Venous Blood Culture - Final NO GROWTH AFTER 5 DAYS INCUBATION 01/18/19 12:00 Calf - Left Posterior Gram Stain - Final 01/18/19 12:00 Calf - Left Posterior Wound Culture - Final Mr S Aureus 01/17/19 13:35 Urine - Urine Lee Urine Culture - Final NO GROWTH OBTAINED Imaging - Results Cat Scan: Report Reviewed, Image Reviewed (multiple CTs reviewed of LLE - edema and swelling along mostly posterior and lateral lower leg and distal thigh, most recent CT report reflects worsening of edema with possible pockets of fluid including possible fluid in fascial planes? NO IV contrast used, no discrete abscess noted, but areas could represent developing collections or fasciitis?) Ultrasound: Report Reviewed Problem List - Problems (1) Cellulitis of left lower extremity Assessment/Plan: edema and pain in left lower leg (more than thigh), with two superficial/ shallow open areas at upper posterior calf with serous weeping cx of area weeks ago showed MRSA, unclear how it was obtained CTs with progressively worsening edema and pockets of fluid, now with questionable fascial planes with fluid no gas in tissues on CT, doubt necrotizing fasciitis only mildly tender over lumpy areas, no significant erythema, no definite fluctuance flaking skin and wrinkles in leg suggest decreasing edema per pt, pain has been getting better this week, and is better now than when he came in, though at first it had gotten worse continue antibiotics per ID pt left in position with knee and foot of bed elevated over heart level with head flat would try to continue same as much as possible for next 12-24 hrs dry dressing left on open areas LLE - change daily and prn some dry skin flaked off - consider having pt shower once edema goes down will reassess later in afternoon - once edema decreases some more, may be easier to evaluate affected areas of leg...? will follow with you would be very difficult to tell externally whether or where to open tissues... pt is currently on asa and plavix - acute intervention would be unlikely unless thought to be emergent given CKD, platelet function likely impaired at baseline anyway also, pt tolerating diet (but may prefer soft diet, given lack of teeth) albumin very low - consider protein supplementation trend labs DVT prophylaxis - chemical, SCD ok on RIGHT LEG ONLY will discuss with primary team in am Code(s): L03.116 - CELLULITIS OF LEFT LOWER LIMB (2) Pain and swelling of left lower leg Code(s): M79.662 - PAIN IN LEFT LOWER LEG; M79.89 - OTHER SPECIFIED SOFT TISSUE DISORDERS (3) Left leg pain Code(s): M79.605 - PAIN IN LEFT LEG (4) Fever Code(s): R50.9 - FEVER, UNSPECIFIED Qualifiers: Fever type: due to other condition Qualified Code(s): R50.81 - Fever presenting with conditions classified elsewhere (5) Anemia Code(s): D64.9 - ANEMIA, UNSPECIFIED Qualifiers: Anemia type: due to chronic kidney disease Chronic kidney disease stage: stage 3 (moderate) Qualified Code(s): N18.3 - Chronic kidney disease, stage 3 (moderate); D63.1 - Anemia in chronic kidney disease (6) HTN (hypertension) Code(s): I10 - ESSENTIAL (PRIMARY) HYPERTENSION Qualifiers: Hypertension type: essential hypertension Qualified Code(s): I10 - Essential (primary) hypertension (7) T2DM (type 2 diabetes mellitus) Code(s): E11.9 - TYPE 2 DIABETES MELLITUS WITHOUT COMPLICATIONS Qualifiers: Diabetes mellitus manager long term care insulin use: with long-term use Diabetes mellitus complication status: with kidney complications Diabetes mellitus complication detail: with chronic kidney disease Chronic kidney disease stage : stage 3 (moderate) Qualified Code(s): E11.22 - Type 2 diabetes mellitus with diabetic chronic kidney disease; N18.3 - Chronic kidney disease, stage 3 ( moderate); Z79.4 - rodent exterminator (current) use of insulin (8) CHF (congestive heart failure) Code(s): I50.9 - HEART FAILURE, UNSPECIFIED Qualifiers: Heart failure type: unspecified Heart failure chronicity: chronic Qualified Code(s): I50.9 - Heart failure, unspecified (9) MRSA (methicillin resistant Staphylococcus aureus) carrier Code(s): Z22.322 - CARRIER OR SUSPECTED CARRIER OF METHICILLIN RESIS STAPH
[2019-02-04] MEDS: NYSTATIN 500,000 UNITS/5 ML SUSPENSION PO SCH ×4 (05:47→23:30)
[2019-02-04] MEDS: CLOPIDOGREL BISULFATE 75 MG TABLET (FP) PO SCH (06:17)
[2019-02-04] MEDS: INSULIN (LEVEMIR) 100 UNITS/ML UNITS SQ SCH ×2 (06:17→17:12)
[2019-02-04] MEDS: INSULIN SLIDING SCALE (NOVOLOG) 1 VIAL SQ SCH ×4 (06:18→21:22)
[2019-02-04] MEDS: AMINO ACIDS/PROTEIN HYDROLYS 30 ML LIQUID.PKT PO SCH ×2 (09:59→17:11)
[2019-02-04] MEDS: MEROPENEM 1 GM in DEXTROSE 5%-WATER 100 ML IVPB SCH ×2 (09:59→21:19)
[2019-02-04] MEDS: BACITRACIN 15 GM TUBE TOPICAL OINTMENT TP SCH (09:59)
[2019-02-04] MEDS: TAMSULOSIN HCL 0.4 MG CAP PO SCH (10:11)
[2019-02-04] MEDS: RANITIDINE HCL 150 MG TABLET (FP) PO SCH ×2 (10:11→21:19)
[2019-02-04] MEDS: FERROUS SO4 325 MG TABLET (FP) PO SCH (10:11)
[2019-02-04] MEDS ORDERED: VANCOMYCIN 1 GM in D5W (PRE-DOCKED) 1,000 MG/250 ML IVPB ONE (10:13)
[2019-02-04] MEDS: FOLIC ACID 1 MG TABLET (FP) PO SCH (10:14)
[2019-02-04] MEDS: FINASTERIDE 5 MG TABLET (FP) PO SCH (10:14)
[2019-02-04] MEDS: LACTOBACILLUS ACIDOPHILUS 1 TABLET PO SCH (10:14)
--- NOTE | 2019-02-04 10:18 | PN ---
Teaching Attending Note Name of Resident: Monica Mosley ATTENDING PHYSICIAN STATEMENT I saw and evaluated the patient. I reviewed the resident's note and discussed the case with the resident. I agree with the resident's findings and plan as documented with exceptions below. SUBJECTIVE: Patient seen and examined. reports some improvement in left leg pain, no complaints otherwise OBJECTIVE: Vital Signs Period Temp Pulse Resp BP Sys/Cano Pulse Ox Last 24 Hr 98.4 F-101 F 84-96 18-20 121-151/54-77 100 Intake & Output 02/01/19 02/02/19 02/03/19 02/04/19 23:59 23:59 23:59 23:59 Intake Total 700 950 490 100 Output Total 800 800 Balance 700 950 -310 -700 Weight 247 lb 1.6 oz 247 lb 14.4 oz 248 lb 1.6 oz 249 lb 3.2 oz General: sitting in bed in no acute distress Chest: CTAB, no rales or wheezing Abdomen:Soft, obese, NT Extremities: left posterior with indurated areas overall unchanged and superficial ulcers, no fluctuation or active discharge expressed, mild tenderness, induration extending in mid posterior calf, LLE edema, faint palpable left DP pulse, warm Home Medications Medication Instructions Recorded Aspirin [ASA -] 81 mg PO DAILY 01/13/19 Atorvastatin Ca [Lipitor] 20 mg PO HS 01/13/19 Clopidogrel Bisulfate [Plavix] 75 mg PO AM 01/13/19 Insulin (Novolog 70/30) [Novolog 30 units SQ HS 01/13/19 Mix 70/30 Vial] Insulin (Novolog 70/30) [Novolog 54 units SQ AM 01/13/19 Mix 70/30 Vial] Metoprolol Succinate 50 mg PO AM 01/13/19 Active Medications Acetaminophen (Tylenol -) 650 mg PO Q6H PRN PRN Reason: FEVER Last Admin: 02/03/19 04:30 Dose: 650 mg Amino Acids (Prosource No Carb Liquid Pkt) 30 ml PO BID@0800,1730 [facility] Last Admin: 02/04/19 09:59 Dose: 30 ml Aspirin (Asa -) 81 mg PO DAILY [facility] Last Admin: 02/03/19 11:10 Dose: 81 mg Atorvastatin Calcium (Lipitor -) 20 mg PO HS [facility] Last Admin: 02/03/19 22:33 Dose: 20 mg Bacitracin (Bacitracin -) 1 applic TP DAILY [facility] Last Admin: 02/04/19 09:59 Dose: 1 applic Clopidogrel Bisulfate (Plavix -) 75 mg PO AM [facility] Last Admin: 02/04/19 06:17 Dose: 75 mg Ferrous Sulfate (Feosol -) 325 mg PO DAILY@0800 [facility] Last Admin: 02/04/19 10:11 Dose: 325 mg Finasteride (Proscar -) 5 mg PO DAILY [facility] Last Admin: 02/04/19 10:14 Dose: 5 mg Folic Acid (Folic Acid -) 1 mg PO DAILY [facility] Last Admin: 02/04/19 10:14 Dose: 1 mg IV Flush (Triple Lumen Flush) 4 ml IVPUSH PRN PRN PRN Reason: Protocol Last Admin: 01/31/19 05:32 Dose: 4 ml Meropenem 1 gm/ Dextrose 100 mls @ 200 mls/hr IVPB Q12H [facility] Last Admin: 02/04/19 09:59 Dose: 200 mls/hr Insulin Aspart (Novolog Vial Sliding Scale -) 1 vial SQ ACHS [facility]; Protocol Last Admin: 02/04/19 06:18 Dose: Not Given Insulin Detemir (Levemir Vial) 20 units SQ BIDI [facility] Last Admin: 02/04/19 06:17 Dose: 20 units Lactobacillus Acidophilus (Bacid -) 1 tab PO DAILY [facility] Last Admin: 02/04/19 10:14 Dose: 1 tab Metoprolol Succinate (Toprol Xl -) 50 mg PO AM [facility] Last Admin: 02/04/19 06:17 Dose: 50 mg Nystatin (Nystatin Oral Suspension -) 500,000 units PO Q6HPO [facility] Last Admin: 02/04/19 05:47 Dose: 500,000 units Promethazine HCl (Phenergan Injection -) 12.5 mg IVPB Q6H PRN PRN Reason: NAUSEA AND/OR VOMITING Ranitidine HCl (Zantac -) 150 mg PO BID [facility] Last Admin: 02/04/19 10:11 Dose: 150 mg Tamsulosin HCl (Flomax -) 0.4 mg PO DAILY@0830 [facility] Last Admin: 02/04/19 10:11 Dose: 0.4 mg Laboratory Results - last 24 hr 02/02/19 02/03/19 02/03/19 06:25 11:35 16:40 POC Glucometer 288 257 Serum GARRET Interpret IEP IgG 2232 H IEP IgA 462 H IEP IgM 55 02/03/19 02/04/19 22:39 05:49 POC Glucometer 178 133 Serum GARRET Interpret IEP IgG IEP IgA IEP IgM Microbiology 01/26/19 18:00 Blood - Peripheral Venous Blood Culture - Final NO GROWTH AFTER 5 DAYS INCUBATION 01/26/19 18:00 Blood - Peripheral Venous Blood Culture - Final NO GROWTH AFTER 5 DAYS INCUBATION 01/29/19 10:50 Wound-Other Gram Stain - Final 01/29/19 10:50 Wound-Other Wound Culture - Final NO GROWTH AFTER 48 HOURS INCUBATION 01/27/19 07:10 Urine - Urine Clean Catch Urine Culture - Final NO GROWTH OBTAINED 01/22/19 06:30 Blood - Peripheral Venous Blood Culture - Final NO GROWTH AFTER 5 DAYS INCUBATION 01/22/19 06:30 Blood - Peripheral Venous Blood Culture - Final NO GROWTH AFTER 5 DAYS INCUBATION 01/23/19 20:30 Stool Clostridium difficile Antigen (AMBER) - Final 01/23/19 20:30 Stool Clostridium difficile Toxin Assay - Final 01/17/19 14:58 Blood - Peripheral Venous Blood Culture - Final NO GROWTH AFTER 5 DAYS INCUBATION 01/17/19 13:50 Blood - Peripheral Venous Blood Culture - Final NO GROWTH AFTER 5 DAYS INCUBATION 01/18/19 12:00 Calf - Left Posterior Gram Stain - Final 01/18/19 12:00 Calf - Left Posterior Wound Culture - Final S Aureus 01/17/19 13:35 Urine - Urine Lee Urine Culture - Final NO GROWTH OBTAINED ASSESSMENT AND PLAN: 59 yom with PMHx of IDDM, HTN, HLD, PAD, CAD s/p PCI, CKD, admitted with LLE pain, AMADOU. -LLE cellulitis, suspected abscess, ?fascitis -AMADOU, suspect from infection/urinary retention -IDDM -HTN -Acute on chronic anemia, suspect multifactorial from iron deficiency, renal dysfunction s/p 3 units PRBC -HLD -PAD -CAD s/p PCI Plan: Fevers overnight. Discussed with Dr. Espinoza, will d/c doxycycline, add vancomcyin and continue meropenem. Discussed with Dr. Oscar, follow up recs for possible surgical intervention. IR guided drainage as indicated. Arterial duplex (dopplerable pulses, left leg warm with no concerns if ischemia , suspect unable to feel strong pulses from edema as discussed with Dr. Zamarripa) renal input noted. Cr improved. Voiding trial pending surgical plans, Vanco renal dosing. Follow up labs from today. Continue flomax. renal/bladder US noted. s/p 3 units PRBC, h/h stable, monitor for now. Continue PO iron suppl. Increased levemir to 20 units BID yesterday, continue for now. . ISS, diabetic diet. Continue ASA/plavix, will need to be held pending surgical plans Heparin subq BID with close monitoring of h/h. Dispo pending clinical improvement and surgical plans. Plan discussed with patient and nursing in detail, all questions answered. Care co-ordinated with surgery, ID.
[2019-02-04] MEDS ORDERED: TRIPLE LUMEN FLUSH 4 ML ML IVPUSH PRN (10:27)
[2019-02-04 11:11] LABS: BASO % 0.4 % (0-2.0); EOS % 2.3 % (0-4.5); HEMATOCRIT 25.5 % (35.4-49); HEMOGLOBIN 8.7 GM/dL (11.7-16.9); MCH 29.5 pg (25.7-33.7); MCHC 34.2 g/dl (32.0-35.9); MEAN CELL VOLUME 86.3 fl (80-96); MEAN PLT VOLUME 7.8 fl (7.5-11.1); MONO % 6.7 % (3.8-10.2); NEUT % 79.6 % (42.8-82.8); PLATELET COUNT 268 K/MM3 (134-434); RBC 2.95 M/mm3 (4.00-5.60); RDW 16.2 % (11.9-15.9); WHITE BLOOD COUNT 10.9 K/mm3 (4.0-10.0)
--- NOTE | 2019-02-04 12:23 | PN ---
Progress Note, Physician History of Present Illness: stable no complaints afebrile today - Current Medication List Current Medications: Active Medications Acetaminophen (Tylenol -) 650 mg PO Q6H PRN PRN Reason: FEVER Last Admin: 02/03/19 04:30 Dose: 650 mg Amino Acids (Prosource No Carb Liquid Pkt) 30 ml PO BID@0800,1730 [facility] Last Admin: 02/04/19 09:59 Dose: 30 ml Aspirin (Asa -) 81 mg PO DAILY [facility] Last Admin: 02/03/19 11:10 Dose: 81 mg Atorvastatin Calcium (Lipitor -) 20 mg PO HS [facility] Last Admin: 02/03/19 22:33 Dose: 20 mg Bacitracin (Bacitracin -) 1 applic TP DAILY [facility] Last Admin: 02/04/19 09:59 Dose: 1 applic Clopidogrel Bisulfate (Plavix -) 75 mg PO AM [facility] Last Admin: 02/04/19 06:17 Dose: 75 mg Ferrous Sulfate (Feosol -) 325 mg PO DAILY@0800 [facility] Last Admin: 02/04/19 10:11 Dose: 325 mg Finasteride (Proscar -) 5 mg PO DAILY [facility] Last Admin: 02/04/19 10:14 Dose: 5 mg Folic Acid (Folic Acid -) 1 mg PO DAILY [facility] Last Admin: 02/04/19 10:14 Dose: 1 mg Heparin Sodium (Porcine) (Heparin -) 5,000 unit SQ BID [facility] IV Flush (Triple Lumen Flush) 4 ml IVPUSH PRN PRN PRN Reason: Protocol Last Admin: 01/31/19 05:32 Dose: 4 ml IV Flush (Triple Lumen Flush) 4 ml IVPUSH PRN PRN PRN Reason: Protocol Meropenem 1 gm/ Dextrose 100 mls @ 200 mls/hr IVPB Q12H [facility] Last Admin: 02/04/19 09:59 Dose: 200 mls/hr Insulin Aspart (Novolog Vial Sliding Scale -) 1 vial SQ ACHS [facility]; Protocol Last Admin: 02/04/19 11:20 Dose: 4 units Insulin Detemir (Levemir Vial) 20 units SQ BIDI [facility] Last Admin: 02/04/19 06:17 Dose: 20 units Lactobacillus Acidophilus (Bacid -) 1 tab PO DAILY [facility] Last Admin: 02/04/19 10:14 Dose: 1 tab Metoprolol Succinate (Toprol Xl -) 50 mg PO AM [facility] Last Admin: 02/04/19 06:17 Dose: 50 mg Nystatin (Nystatin Oral Suspension -) 500,000 units PO Q6HPO [facility] Last Admin: 02/04/19 11:27 Dose: 500,000 units Promethazine HCl (Phenergan Injection -) 12.5 mg IVPB Q6H PRN PRN Reason: NAUSEA AND/OR VOMITING Ranitidine HCl (Zantac -) 150 mg PO BID [facility] Last Admin: 02/04/19 10:11 Dose: 150 mg Tamsulosin HCl (Flomax -) 0.4 mg PO DAILY@0830 [facility] Last Admin: 02/04/19 10:11 Dose: 0.4 mg - Objective Vital Signs: Vital Signs Temperature 98.6 F 02/04/19 10:00 Pulse Rate 89 02/04/19 10:00 Respiratory Rate 20 02/04/19 10:00 Blood Pressure 107/50 L 02/04/19 10:00 O2 Sat by Pulse Oximetry (%) 100 02/03/19 21:00 Constitutional: Yes: No Distress, Calm Cardiovascular: Yes: Regular Rate and Rhythm Respiratory: Yes: Regular, CTA Bilaterally Gastrointestinal: Yes: Normal Bowel Sounds, Soft Musculoskeletal: Yes: Other Extremities: Yes: Other Integumentary: Yes: Other Wound/Incision: Yes: Other Neurological: Yes: Alert, Oriented Psychiatric: Yes: Alert, Oriented Labs: CBC, BMP 02/04/19 10:30 02/03/19 06:30 INR, PTT INR 1.19 (0.83-1.09) H 01/28/19 09:20 Assessment/Plan Problem List - Problems (1) Left leg pain Code(s): M79.605 - PAIN IN LEFT LEG (2) AMADOU (acute kidney injury) Code(s): N17.9 - ACUTE KIDNEY FAILURE, UNSPECIFIED (3) CKD (chronic kidney disease) Code(s): N18.9 - CHRONIC KIDNEY DISEASE, UNSPECIFIED Qualifiers: Chronic kidney disease stage: stage 2 (mild) Qualified Code(s): N18.2 - Chronic kidney disease, stage 2 (mild) (4) HTN (hypertension) Code(s): I10 - ESSENTIAL (PRIMARY) HYPERTENSION Qualifiers: Hypertension type: essential hypertension Qualified Code(s): I10 - Essential (primary) hypertension (5) IDDM (insulin dependent diabetes mellitus) Code(s): E11.9 - TYPE 2 DIABETES MELLITUS WITHOUT COMPLICATIONS; Z79.4 - [employer] (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 OF INSULIN 6 leukocytosis 7 thrush plan patient seen by surgery plan for drainage continue abx rest as per the team monitor closely
[2019-02-04] MEDS: ASPIRIN 81 MG CHEWABLE TABLETS PO SCH (12:43)
[2019-02-04] MEDS: DOXYCYCLINE HYCLATE 100 MG CAPSULE PO SCH (13:03)
--- NOTE | 2019-02-04 13:40 | PN ---
Progress Note, Physician History of Present Illness: Pt seen and examined at bedside. He is awake and alert. he denies fevers or chills. He denies dysuria or hematuria. - Current Medication List Current Medications: Active Medications Acetaminophen (Tylenol -) 650 mg PO Q6H PRN PRN Reason: FEVER Last Admin: 02/03/19 04:30 Dose: 650 mg Amino Acids (Prosource No Carb Liquid Pkt) 30 ml PO BID@0800,1730 [facility] Last Admin: 02/04/19 09:59 Dose: 30 ml Aspirin (Asa -) 81 mg PO DAILY [facility] Last Admin: 02/04/19 12:43 Dose: Not Given Atorvastatin Calcium (Lipitor -) 20 mg PO HS [facility] Last Admin: 02/03/19 22:33 Dose: 20 mg Bacitracin (Bacitracin -) 1 applic TP DAILY [facility] Last Admin: 02/04/19 09:59 Dose: 1 applic Clopidogrel Bisulfate (Plavix -) 75 mg PO AM [facility] Last Admin: 02/04/19 06:17 Dose: 75 mg Ferrous Sulfate (Feosol -) 325 mg PO DAILY@0800 [facility] Last Admin: 02/04/19 10:11 Dose: 325 mg Finasteride (Proscar -) 5 mg PO DAILY [facility] Last Admin: 02/04/19 10:14 Dose: 5 mg Folic Acid (Folic Acid -) 1 mg PO DAILY [facility] Last Admin: 02/04/19 10:14 Dose: 1 mg Heparin Sodium (Porcine) (Heparin -) 5,000 unit SQ BID [facility] IV Flush (Triple Lumen Flush) 4 ml IVPUSH PRN PRN PRN Reason: Protocol Last Admin: 01/31/19 05:32 Dose: 4 ml IV Flush (Triple Lumen Flush) 4 ml IVPUSH PRN PRN PRN Reason: Protocol Meropenem 1 gm/ Dextrose 100 mls @ 200 mls/hr IVPB Q12H [facility] Last Admin: 02/04/19 09:59 Dose: 200 mls/hr Vancomycin HCl (Vancomycin (Pre-Docked)) 1,000 mg in 250 mls @ 200 mls/hr IVPB Q24H [facility]; Protocol Insulin Aspart (Novolog Vial Sliding Scale -) 1 vial SQ ACHS [facility]; Protocol Last Admin: 02/04/19 11:20 Dose: 4 units Insulin Detemir (Levemir Vial) 20 units SQ BIDI [facility] Last Admin: 02/04/19 06:17 Dose: 20 units Lactobacillus Acidophilus (Bacid -) 1 tab PO DAILY [facility] Last Admin: 02/04/19 10:14 Dose: 1 tab Metoprolol Succinate (Toprol Xl -) 50 mg PO AM [facility] Last Admin: 02/04/19 06:17 Dose: 50 mg Nystatin (Nystatin Oral Suspension -) 500,000 units PO Q6HPO [facility] Last Admin: 02/04/19 11:27 Dose: 500,000 units Promethazine HCl (Phenergan Injection -) 12.5 mg IVPB Q6H PRN PRN Reason: NAUSEA AND/OR VOMITING Ranitidine HCl (Zantac -) 150 mg PO BID [facility] Last Admin: 02/04/19 10:11 Dose: 150 mg Tamsulosin HCl (Flomax -) 0.4 mg PO DAILY@0830 [facility] Last Admin: 02/04/19 10:11 Dose: 0.4 mg - Objective Vital Signs: Vital Signs Temperature 98.6 F 02/04/19 10:00 Pulse Rate 89 02/04/19 10:00 Respiratory Rate 20 02/04/19 10:00 Blood Pressure 107/50 L 02/04/19 10:00 O2 Sat by Pulse Oximetry (%) 100 02/04/19 09:00 Constitutional: Yes: Calm Eyes: Yes: Conjunctiva Clear HENT: Yes: Atraumatic Neck: Yes: Supple Cardiovascular: Yes: S1, S2 Respiratory: Yes: CTA Bilaterally Gastrointestinal: Yes: Normal Bowel Sounds, Soft Genitourinary: Yes: WNL Musculoskeletal: Yes: WNL Edema: LLE: 1+ Neurological: Yes: Oriented Psychiatric: Yes: Oriented Labs: CBC, BMP 02/04/19 10:30 02/03/19 06:30 INR, PTT INR 1.19 (0.83-1.09) H 01/28/19 09:20 Problem List - Problems (1) AMADOU (acute kidney injury) Code(s): N17.9 - ACUTE KIDNEY FAILURE, UNSPECIFIED (2) CHF (congestive heart failure) Code(s): I50.9 - HEART FAILURE, UNSPECIFIED Qualifiers: Heart failure type: unspecified Heart failure chronicity: chronic Qualified Code(s): I50.9 - Heart failure, unspecified (3) CKD (chronic kidney disease) Code(s): N18.9 - CHRONIC KIDNEY DISEASE, UNSPECIFIED Qualifiers: Chronic kidney disease stage: stage 3 (moderate) Qualified Code(s): N18.3 - Chronic kidney disease, stage 3 (moderate) (4) HTN (hypertension) Code(s): I10 - ESSENTIAL (PRIMARY) HYPERTENSION Qualifiers: Hypertension type: essential hypertension Qualified Code(s): I10 - Essential (primary) hypertension (5) IDDM (insulin dependent diabetes mellitus) Code(s): E11.9 - TYPE 2 DIABETES MELLITUS WITHOUT COMPLICATIONS; Z79.4 - [employer] (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 OF INSULIN (6) Left leg pain Code(s): M79.605 - PAIN IN LEFT LEG Assessment/Plan Current Medications Generic Name Dose Route Start Last Admin Trade Name Freq PRN Reason Stop Dose Admin Acetaminophen 650 mg 01/25/19 15:01 02/03/19 04:30 Tylenol - PO 650 mg Q6H PRN Administration FEVER Amino Acids 30 ml 01/25/19 17:30 02/04/19 09:59 Prosource No Carb Liquid Pkt PO 30 ml BID@0800,1730 [facility] Administration Aspirin 81 mg 01/15/19 10:00 02/04/19 12:43 Asa - PO Not Given DAILY [facility] Atorvastatin Calcium 20 mg 01/15/19 22:00 02/03/19 22:33 Lipitor - PO 20 mg HS [facility] Administration Bacitracin 1 applic 01/18/19 11:45 02/04/19 09:59 Bacitracin - TP 1 applic DAILY [facility] Administration Clopidogrel Bisulfate 75 mg 01/16/19 07:00 02/04/19 06:17 Plavix - PO 75 mg AM [facility] Administration Ferrous Sulfate 325 mg 02/02/19 08:00 02/04/19 10:11 Feosol - PO 325 mg DAILY@0800 [facility] Administration Finasteride 5 mg 02/01/19 10:00 02/04/19 10:14 Proscar - PO 5 mg DAILY [facility] Administration Folic Acid 1 mg 01/29/19 10:00 02/04/19 10:14 Folic Acid - PO 1 mg DAILY [facility] Administration Heparin Sodium (Porcine) 5,000 unit 02/04/19 22:00 Heparin - SQ BID [facility] IV Flush 4 ml 01/28/19 08:56 01/31/19 05:32 Triple Lumen Flush IVPUSH 4 ml PRN PRN Administration Protocol IV Flush 4 ml 02/04/19 10:27 Triple Lumen Flush IVPUSH PRN PRN Protocol Meropenem 1 gm/ Dextrose 100 mls @ 200 mls/hr 01/22/19 22:00 02/04/19 09:59 IVPB 200 mls/hr Q12H [facility] Administration Vancomycin HCl 1,000 mg in 250 mls @ 200 mls/hr 02/05/19 12:30 Vancomycin (Pre-Docked) IVPB Q24H [facility] Protocol Insulin Aspart 1 vial 01/15/19 11:00 02/04/19 11:20 Novolog Vial Sliding Scale - SQ 4 units ACHS [facility] Administration Protocol Insulin Detemir 20 units 02/03/19 17:42 02/04/19 06:17 Levemir Vial SQ 20 units BIDI [facility] Administration Lactobacillus Acidophilus 1 tab 01/31/19 11:45 02/04/19 10:14 Bacid - PO 1 tab DAILY [facility] Administration Metoprolol Succinate 50 mg 01/16/19 07:00 02/04/19 06:17 Toprol Xl - PO 50 mg AM [facility] Administration Nystatin 500,000 units 02/01/19 12:00 02/04/19 11:27 Nystatin Oral Suspension - PO 500,000 units Q6HPO [facility] Administration Promethazine HCl 12.5 mg 01/15/19 16:50 Phenergan Injection - IVPB Q6H PRN NAUSEA AND/OR VOMITING Ranitidine HCl 150 mg 01/28/19 10:00 02/04/19 10:11 Zantac - PO 150 mg BID [facility] Administration Tamsulosin HCl 0.4 mg 01/16/19 08:30 02/04/19 10:11 Flomax - PO 0.4 mg DAILY@0830 [facility] Administration Impression 1. AMADOU 2. lower ext edema 3. leg pain 4. HTN 5. DM 6. CKD 7. large post void residual 8. cellulitis 9. sepsis Plan - check bmp - discussed with medical team - renal function stabilizing - avoid nsaids - avoid nephrotoxins - amadou likely in part from sepsis
[2019-02-04 14:16] LABS: IGA IMMUNOGLOBULIN 462; IGG IMMUNOGLOBULIN 2232; IGM IMMUNOGLOBULIN 55
[2019-02-04] MEDS: ACETAMINOPHEN 325 MG TABLET (FP) PO PRN (17:01)
--- NOTE | 2019-02-04 19:10 | PN ---
Physical Exam: SUBJECTIVE: Patient seen and examined; leg elevated; no compltains; no IR intervention; slight increase in wbc OBJECTIVE: Vital Signs Period Temp Pulse Resp BP Sys/Cano Pulse Ox Last 24 Hr 98.6 F-101.4 F 89-96 18-20 107-146/50-73 100-100 GENERAL: The patient is awake, alert, and fully oriented, in no acute distress. obese LUNGS: Breath sounds equal, clear to auscultation bilaterally, no wheezes, no crackles, no accessory muscle use. HEART: Regular rate and rhythm, S1, S2 without murmur, rub or gallop. ABDOMEN: Soft, nontender, nondistended, normoactive bowel sounds, no guarding, no rebound, no hepatosplenomegaly, no masses. EXTREMITIES: 2+ pulses, warm, well-perfused, b/l edema; L.R; with chronic venous stasis changes; peeling skin ; with two open wounds NEUROLOGICAL: Cranial nerves II through XII grossly intact. Normal speech, gait not observed. PSYCH: Normal mood, normal affect. SKIN: Warm, dry, normal turgor, no rashes or lesions noted Laboratory Results - last 24 hr 02/02/19 02/03/19 02/04/19 06:25 22:39 05:49 WBC RBC Hgb Hct MCV MCH MCHC RDW Plt Count MPV Absolute Neuts (auto) Neutrophils % Lymphocytes % Monocytes % Eosinophils % Basophils % Nucleated RBC % POC Glucometer 178 133 IgG 2232 IgA 462 IgM 55 Serum [facility] Interpret IEP IgG 2232 H IEP IgA 462 H IEP IgM 55 02/04/19 02/04/19 02/04/19 10:30 11:19 16:59 WBC 10.9 H RBC 2.95 L Hgb 8.7 L Hct 25.5 L MCV 86.3 MCH 29.5 MCHC 34.2 RDW 16.2 H Plt Count 268 MPV 7.8 Absolute Neuts (auto) 8.7 H Neutrophils % 79.6 Lymphocytes % 11.0 D Monocytes % 6.7 Eosinophils % 2.3 Basophils % 0.4 Nucleated RBC % 0 POC Glucometer 234 216 IgG IgA IgM Serum [facility] Interpret IEP IgG IEP IgA IEP IgM Active Medications Generic Name Dose Route Start Last Admin Trade Name Freq PRN Reason Stop Dose Admin Acetaminophen 650 mg 01/25/19 15:01 02/04/19 17:01 Tylenol - PO 650 mg Q6H PRN Administration FEVER Amino Acids 30 ml 01/25/19 17:30 02/04/19 17:11 Prosource No Carb Liquid Pkt PO 30 ml BID@0800,1730 [facility] Administration Aspirin 81 mg 01/15/19 10:00 02/04/19 12:43 Asa - PO Not Given DAILY [facility] Atorvastatin Calcium 20 mg 01/15/19 22:00 02/03/19 22:33 Lipitor - PO 20 mg HS [facility] Administration Bacitracin 1 applic 01/18/19 11:45 02/04/19 09:59 Bacitracin - TP 1 applic DAILY [facility] Administration Clopidogrel Bisulfate 75 mg 01/16/19 07:00 02/04/19 06:17 Plavix - PO 75 mg AM [facility] Administration Ferrous Sulfate 325 mg 02/02/19 08:00 02/04/19 10:11 Feosol - PO 325 mg DAILY@0800 [facility] Administration Finasteride 5 mg 02/01/19 10:00 02/04/19 10:14 Proscar - PO 5 mg DAILY [facility] Administration Folic Acid 1 mg 01/29/19 10:00 02/04/19 10:14 Folic Acid - PO 1 mg DAILY [facility] Administration Heparin Sodium (Porcine) 5,000 unit 02/04/19 22:00 Heparin - SQ BID [facility] IV Flush 4 ml 01/28/19 08:56 01/31/19 05:32 Triple Lumen Flush IVPUSH 4 ml PRN PRN Administration Protocol IV Flush 4 ml 02/04/19 10:27 Triple Lumen Flush IVPUSH PRN PRN Protocol Meropenem 1 gm/ Dextrose 100 mls @ 200 mls/hr 01/22/19 22:00 02/04/19 09:59 IVPB 200 mls/hr Q12H [facility] Administration Vancomycin HCl 1,000 mg in 250 mls @ 200 mls/hr 02/05/19 12:30 Vancomycin (Pre-Docked) IVPB Q24H [facility] Protocol Insulin Aspart 1 vial 01/15/19 11:00 02/04/19 17:12 Novolog Vial Sliding Scale - SQ 4 units ACHS [facility] Administration Protocol Insulin Detemir 20 units 02/03/19 17:42 02/04/19 17:12 Levemir Vial SQ 20 units BIDI [facility] Administration Lactobacillus Acidophilus 1 tab 01/31/19 11:45 02/04/19 10:14 Bacid - PO 1 tab DAILY [facility] Administration Metoprolol Succinate 50 mg 01/16/19 07:00 02/04/19 06:17 Toprol Xl - PO 50 mg AM [facility] Administration Nystatin 500,000 units 02/01/19 12:00 02/04/19 17:12 Nystatin Oral Suspension - PO 500,000 units Q6HPO [facility] Administration Promethazine HCl 12.5 mg 01/15/19 16:50 Phenergan Injection - IVPB Q6H PRN NAUSEA AND/OR VOMITING Ranitidine HCl 150 mg 01/28/19 10:00 02/04/19 10:11 Zantac - PO 150 mg BID [facility] Administration Tamsulosin HCl 0.4 mg 01/16/19 08:30 02/04/19 10:11 Flomax - PO 0.4 mg DAILY@0830 [facility] Administration ASSESSMENT/PLAN: 59 year old male with history of DM 2, HTN, HLD, PAD, CAD s/p PCI, CKD 3, presented to the ED with LLE pain, found to have infected LLE ulcer. #cellulitis CORY; ulcer -ct scan noted;increased swelling; possible abcess/fascitis -vascular notified -per my exam + pedal pulse b/l -arterial doppler -cont IV antibiotic -plan per sx #AMADOU on CKD -improving; ml sec to sepsis -avoid nephrotoxins #IDDM - insulin ss -bgm #HTN -metoprolol ##normocytic anemia with iron def anemia: -iron studies + for iron def; -replace oral iron -transfuse if <7 #CAD: -asa/plavix DVT ppl gi ppl Visit type - Emergency Visit Emergency Visit: Yes ED Registration Date: 01/13/19 Care time: The patient presented to the Emergency Department on the above date and was hospitalized for further evaluation of their emergent condition. - New Patient This patient is new to me today: No - Critical Care Critical Care patient: No
[2019-02-04] MEDS ORDERED: PT OWN MED DRAWER 7, Y5N ONE (21:07)
[2019-02-04] MEDS: ATORVASTATIN CA 20 MG TABLET (FP) PO SCH (21:19)
[2019-02-04] MEDS: HEPARIN NA (PORCINE) 5,000 UNITS/ML 1ML VIAL SQ SCH (21:19)
[2019-02-05] MEDS: NYSTATIN 500,000 UNITS/5 ML SUSPENSION PO SCH ×3 (05:19→17:17)
[2019-02-05] MEDS: ACETAMINOPHEN 325 MG TABLET (FP) PO PRN (05:25)
[2019-02-05] MEDS: INSULIN SLIDING SCALE (NOVOLOG) 1 VIAL SQ SCH ×4 (06:07→22:37)
[2019-02-05] MEDS: INSULIN (LEVEMIR) 100 UNITS/ML UNITS SQ SCH ×2 (06:08→16:44)
[2019-02-05 07:35] LABS: ALBUMIN 1.5 g/dl (3.4-5.0); ALK PHOS 73 U/L (45-117); ANION GAP 6 MMOL/L (8-16); BILIRUBIN,TOTAL 0.6 mg/dL (0.2-1); BLOOD UREA NITROGEN 35 mg/dL (7-18); CALCIUM 7.4 mg/dL (8.5-10.1); CHLORIDE 110 mmol/L (98-107); CO2 24 mmol/L (21-32); CREATININE 1.5 mg/dL (0.55-1.3); GLUCOSE,RANDOM 117 mg/dL (74-106); POTASSIUM 3.9 mmol/L (3.5-5.1); SGOT/AST 17 U/L (15-37); SGPT/ALT 11 U/L (13-61); SODIUM 140 mmol/L (136-145); TOT PROT 6.3 g/dl (6.4-8.2)
--- NOTE | 2019-02-05 10:17 | PN ---
Progress Note, Physician Chief Complaint: left leg abscess History of Present Illness: 59yo MMP he has been hospitalized about 3 weeks on medicine after falling at home from sharp pain in upper back of left leg and not being able to get up. Pt reports calling for ambulance, and being down "about 10 minutes." He is not the best historian. Denies pain elsewhere, fever/chills at home prior to hospitalization, N/V, abd pain, urinary or bowel problems, WORRELL, dizziness, recent cold/cough. He did not realize his left leg was swollen until it was noted by the EMT. He has had multiple imaging studies, including CT earlier ( ) showing increasing changes of edema/fluid pockets in left mostly posterior leg in distal thigh and lower leg, some laterally, few areas medially, now with some fluid in fascial planes suggesting possibility of fasciitis. Surgery was asked to evaluate. Ortho saw him shortly after admission in December, and found no acute need for intervention, but advised elevation of the leg, which has not really been done on a regular basis. He is seen and examined in bed, with nurse present, and he gives the above history. He has been on antibiotics per ID, and a culture swab taken of a weeping area on the upper back left calf in late Dec grew MRSA. He has recently been spiking fevers. Given CKD, all imaging has been done without IV contrast, limiting evaluation. - Current Medication List Current Medications: Active Medications Acetaminophen (Tylenol -) 650 mg PO Q6H PRN PRN Reason: FEVER Last Admin: 02/05/19 05:25 Dose: 650 mg Amino Acids (Prosource No Carb Liquid Pkt) 30 ml PO BID@0800,1730 [facility] Last Admin: 02/04/19 17:11 Dose: 30 ml Aspirin (Asa -) 81 mg PO DAILY [facility] Last Admin: 02/04/19 12:43 Dose: Not Given Atorvastatin Calcium (Lipitor -) 20 mg PO HS [facility] Last Admin: 02/04/19 21:19 Dose: 20 mg Bacitracin (Bacitracin -) 1 applic TP DAILY [facility] Last Admin: 02/04/19 09:59 Dose: 1 applic Clopidogrel Bisulfate (Plavix -) 75 mg PO AM [facility] Last Admin: 02/04/19 06:17 Dose: 75 mg Ferrous Sulfate (Feosol -) 325 mg PO DAILY@0800 [facility] Last Admin: 02/04/19 10:11 Dose: 325 mg Finasteride (Proscar -) 5 mg PO DAILY [facility] Last Admin: 02/04/19 10:14 Dose: 5 mg Folic Acid (Folic Acid -) 1 mg PO DAILY [facility] Last Admin: 02/04/19 10:14 Dose: 1 mg Heparin Sodium (Porcine) (Heparin -) 5,000 unit SQ BID [facility] Last Admin: 02/04/19 21:19 Dose: 5,000 unit IV Flush (Triple Lumen Flush) 4 ml IVPUSH PRN PRN PRN Reason: Protocol Last Admin: 01/31/19 05:32 Dose: 4 ml IV Flush (Triple Lumen Flush) 4 ml IVPUSH PRN PRN PRN Reason: Protocol Meropenem 1 gm/ Dextrose 100 mls @ 200 mls/hr IVPB Q12H [facility] Last Admin: 02/04/19 21:19 Dose: 200 mls/hr Vancomycin HCl (Vancomycin (Pre-Docked)) 1,000 mg in 250 mls @ 200 mls/hr IVPB Q24H [facility]; Protocol Insulin Aspart (Novolog Vial Sliding Scale -) 1 vial SQ ACHS [facility]; Protocol Last Admin: 02/05/19 06:07 Dose: Not Given Insulin Detemir (Levemir Vial) 20 units SQ BIDI [facility] Last Admin: 02/05/19 06:08 Dose: 20 units Lactobacillus Acidophilus (Bacid -) 1 tab PO DAILY [facility] Last Admin: 02/04/19 10:14 Dose: 1 tab Metoprolol Succinate (Toprol Xl -) 50 mg PO AM [facility] Last Admin: 02/04/19 06:17 Dose: 50 mg Nystatin (Nystatin Oral Suspension -) 500,000 units PO Q6HPO [facility] Last Admin: 02/05/19 05:19 Dose: Not Given Promethazine HCl (Phenergan Injection -) 12.5 mg IVPB Q6H PRN PRN Reason: NAUSEA AND/OR VOMITING Ranitidine HCl (Zantac -) 150 mg PO BID [facility] Last Admin: 02/04/19 21:19 Dose: 150 mg Tamsulosin HCl (Flomax -) 0.4 mg PO DAILY@0830 [facility] Last Admin: 02/04/19 10:11 Dose: 0.4 mg - Objective Vital Signs: Vital Signs Temperature 97.9 F 02/05/19 08:00 Pulse Rate 69 02/05/19 08:00 Respiratory Rate 18 02/05/19 08:00 Blood Pressure 116/61 02/05/19 08:00 O2 Sat by Pulse Oximetry (%) 99 02/04/19 21:00 Constitutional: Yes: Well Nourished, No Distress, Calm Eyes: Yes: Conjunctiva Clear, EOM Intact HENT: Yes: Atraumatic, Normocephalic Neck: Yes: Supple, Trachea Midline Cardiovascular: Yes: Regular Rate and Rhythm, S1, S2 Respiratory: Yes: Regular, CTA Bilaterally Gastrointestinal: Yes: Normal Bowel Sounds, Soft ...Rectal Exam: Yes: Deferred Genitourinary: No: CVA Tenderness - Left, CVA Tenderness - Right Breast(s): No: Dimpling, Nipple Inversion Musculoskeletal: No: Muscle Pain, Muscle Weakness Extremities: No: Cool, Cyanosis Edema: Yes Edema: LLE: 2+ Peripheral Pulses WNL: Yes Peripheral Pulses: Left Radial: 2+, Right Radial: 2+, Left Doralis Pedis: 2+, Right Dorsalis Pedis: 2+, Left Femoral: 2+, Right Femoral: 2+ Integumentary: No: Jaundice, Rash Wound/Incision: Yes: Clean/Dry, Well Approximated Neurological: Yes: Alert, Oriented Psychiatric: Yes: Alert, Oriented Labs: CBC, BMP 02/04/19 10:30 02/05/19 06:00 INR, PTT INR 1.19 (0.83-1.09) H 01/28/19 09:20 Problem List - Problems (1) Abscess of left lower leg Assessment/Plan: Left leg abscess Will discuss opertive management NPO in preparation for OR Code(s): L02.416 - CUTANEOUS ABSCESS OF LEFT LOWER LIMB (2) AMADOU (acute kidney injury) Code(s): N17.9 - ACUTE KIDNEY FAILURE, UNSPECIFIED (3) CHF (congestive heart failure) Code(s): I50.9 - HEART FAILURE, UNSPECIFIED Qualifiers: Heart failure type: unspecified Heart failure chronicity: chronic Qualified Code(s): I50.9 - Heart failure, unspecified (4) CKD (chronic kidney disease) Code(s): N18.9 - CHRONIC KIDNEY DISEASE, UNSPECIFIED Qualifiers: Chronic kidney disease stage: stage 3 (moderate) Qualified Code(s): N18.3 - Chronic kidney disease, stage 3 (moderate) (5) HTN (hypertension) Code(s): I10 - ESSENTIAL (PRIMARY) HYPERTENSION Qualifiers: Hypertension type: essential hypertension Qualified Code(s): I10 - Essential (primary) hypertension (6) T2DM (type 2 diabetes mellitus) Code(s): E11.9 - TYPE 2 DIABETES MELLITUS WITHOUT COMPLICATIONS Qualifiers: Diabetes mellitus manager long term care insulin use: with manager long term care use Diabetes mellitus complication status: with kidney complications Diabetes mellitus complication detail: with chronic kidney disease Chronic kidney disease stage : stage 3 (moderate) Qualified Code(s): E11.22 - Type 2 diabetes mellitus with diabetic chronic kidney disease; N18.3 - Chronic kidney disease, stage 3 ( moderate); Z79.4 - [facility] (current) use of insulin
[2019-02-05] MEDS: AMINO ACIDS/PROTEIN HYDROLYS 30 ML LIQUID.PKT PO SCH ×2 (10:27→16:44)
[2019-02-05] MEDS: TAMSULOSIN HCL 0.4 MG CAP PO SCH (10:28)
[2019-02-05] MEDS: RANITIDINE HCL 150 MG TABLET (FP) PO SCH ×2 (10:28→22:32)
[2019-02-05] MEDS: LACTOBACILLUS ACIDOPHILUS 1 TABLET PO SCH (10:28)
[2019-02-05] MEDS: FINASTERIDE 5 MG TABLET (FP) PO SCH (10:28)
[2019-02-05] MEDS: FOLIC ACID 1 MG TABLET (FP) PO SCH (10:28)
[2019-02-05] MEDS: ASPIRIN 81 MG CHEWABLE TABLETS PO SCH (10:28)
[2019-02-05] MEDS: FERROUS SO4 325 MG TABLET (FP) PO SCH (10:28)
[2019-02-05] MEDS: HEPARIN NA (PORCINE) 5,000 UNITS/ML 1ML VIAL SQ SCH ×2 (10:29→22:33)
[2019-02-05] MEDS: MEROPENEM 1 GM in DEXTROSE 5%-WATER 100 ML IVPB SCH ×2 (10:29→22:38)
[2019-02-05] MEDS: BACITRACIN 15 GM TUBE TOPICAL OINTMENT TP SCH (10:29)
[2019-02-05] MEDS ORDERED: VANCOMYCIN 1 GRAM (PRE-DOCKED) 1,000 MG/250 ML BAG IVPB SCH (12:30)
--- NOTE | 2019-02-05 13:35 | PN ---
Teaching Attending Note Name of Resident: Monica Mosley ATTENDING PHYSICIAN STATEMENT I saw and evaluated the patient. I reviewed the resident's note and discussed the case with the resident. I agree with the resident's findings and plan as documented with exceptions below. SUBJECTIVE: Patient seen and examined. overall leg pain unchanged, no new complaints. OBJECTIVE: Vital Signs Period Temp Pulse Resp BP Sys/Cano Pulse Ox Last 24 Hr 97.9 F-101.4 F 69-90 18-20 105-148/53-73 98-99 Intake & Output 02/02/19 02/03/19 02/04/19 02/05/19 23:59 23:59 23:59 23:59 Intake Total 950 490 700 250 Output Total 800 800 Balance 950 -310 -100 250 Weight 247 lb 14.4 oz 248 lb 1.6 oz 249 lb 3.2 oz 253 lb 4 oz general: sitting in bed in no acute distress Chest: CTAB, no rales or wheezing Abdomen;Soft obese, NT Extremities: left posterior calf swellilng softer today but no fluctuation or active discharge, some improvement in LLE swelling, otherwise unchanged exam Home Medications Medication Instructions Recorded Aspirin [ASA -] 81 mg PO DAILY 01/13/19 Atorvastatin Ca [Lipitor] 20 mg PO HS 01/13/19 Clopidogrel Bisulfate [Plavix] 75 mg PO AM 01/13/19 Insulin (Novolog 70/30) [Novolog 30 units SQ HS 01/13/19 Mix 70/30 Vial] Insulin (Novolog 70/30) [Novolog 54 units SQ AM 01/13/19 Mix 70/30 Vial] Metoprolol Succinate 50 mg PO AM 01/13/19 Active Medications Acetaminophen (Tylenol -) 650 mg PO Q6H PRN PRN Reason: FEVER Last Admin: 02/05/19 05:25 Dose: 650 mg Amino Acids (Prosource No Carb Liquid Pkt) 30 ml PO BID@0800,1730 [facility] Last Admin: 02/05/19 10:27 Dose: 30 ml Aspirin (Asa -) 81 mg PO DAILY [facility] Last Admin: 02/05/19 10:28 Dose: Not Given Atorvastatin Calcium (Lipitor -) 20 mg PO [facility] Last Admin: 02/04/19 21:19 Dose: 20 mg Bacitracin (Bacitracin -) 1 applic TP DAILY [facility] Last Admin: 02/05/19 10:29 Dose: 1 applic Clopidogrel Bisulfate (Plavix -) 75 mg PO AM [facility] Last Admin: 02/04/19 06:17 Dose: 75 mg Ferrous Sulfate (Feosol -) 325 mg PO DAILY@0800 [facility] Last Admin: 02/05/19 10:28 Dose: 325 mg Finasteride (Proscar -) 5 mg PO DAILY [facility] Last Admin: 02/05/19 10:28 Dose: 5 mg Folic Acid (Folic Acid -) 1 mg PO DAILY [facility] Last Admin: 02/05/19 10:28 Dose: 1 mg Heparin Sodium (Porcine) (Heparin -) 5,000 unit SQ BID [facility] Last Admin: 02/05/19 10:29 Dose: Not Given IV Flush (Triple Lumen Flush) 4 ml IVPUSH PRN PRN PRN Reason: Protocol Last Admin: 01/31/19 05:32 Dose: 4 ml IV Flush (Triple Lumen Flush) 4 ml IVPUSH PRN PRN PRN Reason: Protocol Meropenem 1 gm/ Dextrose 100 mls @ 200 mls/hr IVPB Q12H [facility] Last Admin: 02/05/19 10:29 Dose: 200 mls/hr Vancomycin HCl (Vancomycin (Pre-Docked)) 1,000 mg in 250 mls @ 200 mls/hr IVPB Q24H [facility]; Protocol Last Admin: 02/05/19 12:22 Dose: 200 mls/hr Insulin Aspart (Novolog Vial Sliding Scale -) 1 vial SQ ACHS [facility]; Protocol Last Admin: 02/05/19 12:15 Dose: Not Given Insulin Detemir (Levemir Vial) 20 units SQ BIDI [facility] Last Admin: 02/05/19 06:08 Dose: 20 units Lactobacillus Acidophilus (Bacid -) 1 tab PO DAILY [facility] Last Admin: 02/05/19 10:28 Dose: 1 tab Metoprolol Succinate (Toprol Xl -) 50 mg PO AM [facility] Last Admin: 02/04/19 06:17 Dose: 50 mg Nystatin (Nystatin Oral Suspension -) 500,000 units PO Q6HPO [facility] Last Admin: 02/05/19 12:15 Dose: Not Given Promethazine HCl (Phenergan Injection -) 12.5 mg IVPB Q6H PRN PRN Reason: NAUSEA AND/OR VOMITING Ranitidine HCl (Zantac -) 150 mg PO BID [facility] Last Admin: 02/05/19 10:28 Dose: 150 mg Tamsulosin HCl (Flomax -) 0.4 mg PO DAILY@0830 [facility] Last Admin: 02/05/19 10:28 Dose: 0.4 mg Laboratory Results - last 24 hr 02/02/19 02/04/19 02/04/19 06:25 16:59 21:22 Sodium Potassium Chloride Carbon Dioxide Anion Gap BUN Creatinine Creat Clearance w eGFR POC Glucometer 216 174 Random Glucose Calcium Total Bilirubin AST ALT Alkaline Phosphatase Total Protein Albumin Random Vancomycin IgG 2232 IgA 462 IgM 55 02/05/19 02/05/19 02/05/19 05:20 06:00 06:00 Sodium 140 Potassium 3.9 Chloride 110 H Carbon Dioxide 24 Anion Gap 6 L BUN 35 H Creatinine 1.5 H Creat Clearance w eGFR 47.58 POC Glucometer 133 Random Glucose 117 H Calcium 7.4 L Total Bilirubin 0.6 AST 17 ALT 11 L Alkaline Phosphatase 73 Total Protein 6.3 L Albumin 1.5 L Random Vancomycin 12.7 L IgG IgA IgM 02/05/19 12:06 Sodium Potassium Chloride Carbon Dioxide Anion Gap BUN Creatinine Creat Clearance w eGFR POC Glucometer 193 Random Glucose Calcium Total Bilirubin AST ALT Alkaline Phosphatase Total Protein Albumin Random Vancomycin IgG IgA IgM Microbiology 02/04/19 10:30 Blood - Central Line Blood Culture - Preliminary NO GROWTH OBTAINED AFTER 24 HOURS, INCUBATION TO CONTINUE FOR 4 DAYS. 02/04/19 10:45 Blood - Peripheral Venous Blood Culture - Preliminary NO GROWTH OBTAINED AFTER 24 HOURS, INCUBATION TO CONTINUE FOR 4 DAYS. 01/26/19 18:00 Blood - Peripheral Venous Blood Culture - Final NO GROWTH AFTER 5 DAYS INCUBATION 01/26/19 18:00 Blood - Peripheral Venous Blood Culture - Final NO GROWTH AFTER 5 DAYS INCUBATION 01/29/19 10:50 Wound-Other Gram Stain - Final 01/29/19 10:50 Wound-Other Wound Culture - Final NO GROWTH AFTER 48 HOURS INCUBATION 01/27/19 07:10 Urine - Urine Clean Catch Urine Culture - Final NO GROWTH OBTAINED 01/22/19 06:30 Blood - Peripheral Venous Blood Culture - Final NO GROWTH AFTER 5 DAYS INCUBATION 01/22/19 06:30 Blood - Peripheral Venous Blood Culture - Final NO GROWTH AFTER 5 DAYS INCUBATION 01/23/19 20:30 Stool Clostridium difficile Antigen (AMBER) - Final 01/23/19 20:30 Stool Clostridium difficile Toxin Assay - Final 01/17/19 14:58 Blood - Peripheral Venous Blood Culture - Final NO GROWTH AFTER 5 DAYS INCUBATION 01/17/19 13:50 Blood - Peripheral Venous Blood Culture - Final NO GROWTH AFTER 5 DAYS INCUBATION 01/18/19 12:00 Calf - Left Posterior Gram Stain - Final 01/18/19 12:00 Calf - Left Posterior Wound Culture - Final S Aureus 01/17/19 13:35 Urine - Urine Lee Urine Culture - Final NO GROWTH OBTAINED ASSESSMENT AND PLAN: 59 yom with PMHx of IDDM, HTN, HLD, PAD, CAD s/p PCI, CKD, admitted with LLE pain, AMADOU. -LLE cellulitis, suspected abscess, ?fascitis -AMADOU, suspect from infection/urinary retention -IDDM -HTN -Acute on chronic anemia, suspect multifactorial from iron deficiency, renal dysfunction s/p 3 units PRBC -HLD -PAD -CAD s/p PCI Plan: recurrent fevers. Blood cx from central line and peripheral line. Discussed with IR, plan to follow up on cx prior to line change. Discussed with Dr. Carrizales, will follow up for possible surgical intervention. No localized fluid collection to drain per IR. Continue meropnem. Vanco started 02/04, monitor levels. Arterial duplex, discussed with Dr. Zamarripa, no active intervention. Continue ASA/Plavix. Continue flomax. renal/bladder US noted. s/p 3 units PRBC, h/h stable, monitor for now. Continue PO iron suppl. Increased levemir to 20 units BID yesterday, continue for now. ISS, diabetic diet. Heparin subq BID with close monitoring of h/h. Dispo pending clinical improvement and surgical plans. Plan discussed with patient, CM and nursing in detail, all questions answered.
--- NOTE | 2019-02-05 13:35 | PN ---
Progress Note, Physician Chief Complaint: left leg abscess History of Present Illness: 59yo MMP he has been hospitalized about 3 weeks on medicine after falling at home from sharp pain in upper back of left leg and not being able to get up. Pt reports calling for ambulance, and being down "about 10 minutes." He is not the best historian. Denies pain elsewhere, fever/chills at home prior to hospitalization, N/V, abd pain, urinary or bowel problems, WORRELL, dizziness, recent cold/cough. He did not realize his left leg was swollen until it was noted by the EMT. He has had multiple imaging studies, including CT earlier ( ) showing increasing changes of edema/fluid pockets in left mostly posterior leg in distal thigh and lower leg, some laterally, few areas medially, now with some fluid in fascial planes suggesting possibility of fasciitis. Surgery was asked to evaluate. Ortho saw him shortly after admission in December, and found no acute need for intervention, but advised elevation of the leg, which has not really been done on a regular basis. He is seen and examined in bed, with nurse present, and he gives the above history. He has been on antibiotics per ID, and a culture swab taken of a weeping area on the upper back left calf in late Dec grew MRSA. He has recently been spiking fevers. Given CKD, all imaging has been done without IV contrast, limiting evaluation. - Current Medication List Current Medications: Active Medications Acetaminophen (Tylenol -) 650 mg PO Q6H PRN PRN Reason: PAIN LEVEL 4-10 OR FEVER Amino Acids (Prosource No Carb Liquid Pkt) 30 ml PO BID@0800,1730 [facility] Last Admin: 02/08/19 17:48 Dose: Not Given Aspirin (Asa -) 81 mg PO DAILY [facility] Last Admin: 02/08/19 09:21 Dose: 81 mg Atorvastatin Calcium (Lipitor -) 20 mg PO HS [facility] Last Admin: 02/08/19 21:19 Dose: 20 mg Clopidogrel Bisulfate (Plavix -) 75 mg PO AM [facility] Last Admin: 02/09/19 06:57 Dose: 75 mg Ferrous Sulfate (Feosol -) 325 mg PO DAILY@0800 [facility] Last Admin: 02/08/19 09:22 Dose: 325 mg Finasteride (Proscar -) 5 mg PO DAILY [facility] Last Admin: 02/08/19 09:21 Dose: 5 mg Folic Acid (Folic Acid -) 1 mg PO DAILY [facility] Last Admin: 02/08/19 09:21 Dose: 1 mg Heparin Sodium (Porcine) (Heparin -) 5,000 unit SQ BID [facility] Last Admin: 02/08/19 21:19 Dose: 5,000 unit IV Flush (Triple Lumen Flush) 4 ml IVPUSH PRN PRN PRN Reason: Protocol IV Flush (Triple Lumen Flush) 4 ml IVPUSH PRN PRN PRN Reason: Protocol IV Flush (Triple Lumen Flush) 4 ml IVPUSH PRN PRN PRN Reason: Protocol Meropenem 1 gm/ Dextrose 100 mls @ 200 mls/hr IVPB BID [facility] Last Admin: 02/08/19 21:18 Dose: 200 mls/hr Sodium Chloride (Normal Saline -) 1,000 mls @ 75 mls/hr IV ASDIR [facility] Last Admin: 02/09/19 00:30 Dose: 75 mls/hr Vancomycin HCl 1,250 mg/ (Dextrose) 250 mls @ 250 mls/2 hr IVPB Q24H [facility]; Protocol Last Admin: 02/08/19 17:26 Dose: 250 mls/2 hr Insulin Aspart (Novolog Vial Sliding Scale -) 1 vial SQ ACHS [facility]; Protocol Last Admin: 02/09/19 06:53 Dose: Not Given Insulin Detemir (Levemir Vial) 20 units SQ BID@0700,2200 [facility] Lactobacillus Acidophilus (Bacid -) 1 tab PO DAILY [facility] Last Admin: 02/08/19 09:21 Dose: 1 tab Metoprolol Succinate (Toprol Xl -) 50 mg PO AM [facility] Last Admin: 02/09/19 06:57 Dose: 50 mg Nystatin (Nystatin Oral Suspension -) 500,000 units PO Q6HPO [facility] Last Admin: 02/09/19 06:53 Dose: Not Given Ondansetron HCl (Zofran Injection) 4 mg IVPUSH Q6H PRN PRN Reason: NAUSEA AND/OR VOMITING Last Admin: 02/07/19 01:46 Dose: 4 mg Oxycodone HCl (Roxicodone -) 5 mg PO Q6H PRN PRN Reason: Pain Level 7 - 10 [facility]ROUGH Last Admin: 02/07/19 13:59 Dose: 5 mg Promethazine HCl (Phenergan Injection -) 12.5 mg IVPB Q6H PRN PRN Reason: NAUSEA AND/OR VOMITING Ranitidine HCl (Zantac -) 150 mg PO BID [facility] Last Admin: 02/08/19 21:19 Dose: 150 mg Tamsulosin HCl (Flomax -) 0.4 mg PO DAILY@0830 [facility] Last Admin: 02/08/19 09:21 Dose: 0.4 mg - Objective Vital Signs: Vital Signs Temperature 98.6 F 02/09/19 10:00 Pulse Rate 89 02/09/19 10:00 Respiratory Rate 18 02/09/19 10:00 Blood Pressure 128/73 02/09/19 10:00 O2 Sat by Pulse Oximetry (%) 99 02/08/19 21:00 Constitutional: Yes: No Distress, Calm, Poor Hygeine Eyes: Yes: Conjunctiva Clear, EOM Intact HENT: Yes: Atraumatic, Normocephalic Neck: Yes: Supple, Trachea Midline Cardiovascular: Yes: Regular Rate and Rhythm, S1, S2 Respiratory: Yes: Regular, CTA Bilaterally Gastrointestinal: Yes: Normal Bowel Sounds, Soft ...Rectal Exam: Yes: Deferred Genitourinary: No: CVA Tenderness - Left, CVA Tenderness - Right Breast(s): No: Discharge from Nipple, Nipple Inversion Extremities: Yes: Calf Tenderness (SIgnificant swelling and tenderness left calf ), Other. No: Cool, Cyanosis Edema: Yes Edema: LLE: 3+ Peripheral Pulses WNL: Yes Peripheral Pulses: Left Radial: 2+, Right Radial: 2+, Left Doralis Pedis: 2+, Right Dorsalis Pedis: 2+, Left Femoral: 2+, Right Femoral: 2+ Integumentary: No: Jaundice, Skin Tear Wound/Incision: Yes: Draining, Reddened Neurological: Yes: Alert, Oriented Psychiatric: Yes: Alert, Oriented Labs: CBC, BMP 02/09/19 06:00 02/09/19 06:00 INR, PTT INR 1.19 (0.83-1.09) H 01/28/19 09:20 <Alfie Carrizales - Last Filed: 02/09/19 11:32> - Current Medication List Current Medications: Active Medications Acetaminophen (Tylenol -) 650 mg PO Q6H PRN PRN Reason: FEVER Last Admin: 02/05/19 05:25 Dose: 650 mg Amino Acids (Prosource No Carb Liquid Pkt) 30 ml PO BID@0800,1730 [facility] Last Admin: 02/05/19 10:27 Dose: 30 ml Aspirin (Asa -) 81 mg PO DAILY [facility] Last Admin: 02/05/19 10:28 Dose: Not Given Atorvastatin Calcium (Lipitor -) 20 mg PO HS [facility] Last Admin: 02/04/19 21:19 Dose: 20 mg Bacitracin (Bacitracin -) 1 applic TP DAILY [facility] Last Admin: 02/05/19 10:29 Dose: 1 applic Clopidogrel Bisulfate (Plavix -) 75 mg PO AM [facility] Last Admin: 02/04/19 06:17 Dose: 75 mg Ferrous Sulfate (Feosol -) 325 mg PO DAILY@0800 [facility] Last Admin: 02/05/19 10:28 Dose: 325 mg Finasteride (Proscar -) 5 mg PO DAILY [facility] Last Admin: 02/05/19 10:28 Dose: 5 mg Folic Acid (Folic Acid -) 1 mg PO DAILY [facility] Last Admin: 02/05/19 10:28 Dose: 1 mg Heparin Sodium (Porcine) (Heparin -) 5,000 unit SQ BID [facility] Last Admin: 02/05/19 10:29 Dose: Not Given IV Flush (Triple Lumen Flush) 4 ml IVPUSH PRN PRN PRN Reason: Protocol Last Admin: 01/31/19 05:32 Dose: 4 ml IV Flush (Triple Lumen Flush) 4 ml IVPUSH PRN PRN PRN Reason: Protocol Meropenem 1 gm/ Dextrose 100 mls @ 200 mls/hr IVPB Q12H [facility] Last Admin: 02/05/19 10:29 Dose: 200 mls/hr Vancomycin HCl (Vancomycin (Pre-Docked)) 1,000 mg in 250 mls @ 200 mls/hr IVPB Q24H [facility]; Protocol Last Admin: 02/05/19 12:22 Dose: 200 mls/hr Insulin Aspart (Novolog Vial Sliding Scale -) 1 vial SQ ACHS [facility]; Protocol Last Admin: 02/05/19 12:15 Dose: Not Given Insulin Detemir (Levemir Vial) 20 units SQ BIDI [facility] Last Admin: 02/05/19 06:08 Dose: 20 units Lactobacillus Acidophilus (Bacid -) 1 tab PO DAILY [facility] Last Admin: 02/05/19 10:28 Dose: 1 tab Metoprolol Succinate (Toprol Xl -) 50 mg PO AM [facility] Last Admin: 02/04/19 06:17 Dose: 50 mg Nystatin (Nystatin Oral Suspension -) 500,000 units PO Q6HPO [facility] Last Admin: 02/05/19 12:15 Dose: Not Given Promethazine HCl (Phenergan Injection -) 12.5 mg IVPB Q6H PRN PRN Reason: NAUSEA AND/OR VOMITING Ranitidine HCl (Zantac -) 150 mg PO BID [facility] Last Admin: 02/05/19 10:28 Dose: 150 mg Tamsulosin HCl (Flomax -) 0.4 mg PO DAILY@0830 [facility] Last Admin: 02/05/19 10:28 Dose: 0.4 mg - Objective Vital Signs: Vital Signs Temperature 97.9 F 02/05/19 08:00 Pulse Rate 69 02/05/19 08:00 Respiratory Rate 18 02/05/19 09:00 Blood Pressure 116/61 02/05/19 08:00 O2 Sat by Pulse Oximetry (%) 98 02/05/19 09:00 Labs: CBC, BMP 02/04/19 10:30 02/05/19 06:00 INR, PTT INR 1.19 (0.83-1.09) H 01/28/19 09:20 <Lincoln Espinoza - Last Filed: 02/09/19 14:01> Problem List - Problems (1) Abscess of left lower leg Assessment/Plan: Left leg abscess Will discuss opertive management NPO in preparation for OR Code(s): L02.416 - CUTANEOUS ABSCESS OF LEFT LOWER LIMB (2) AMADOU (acute kidney injury) Code(s): N17.9 - ACUTE KIDNEY FAILURE, UNSPECIFIED (3) CHF (congestive heart failure) Code(s): I50.9 - HEART FAILURE, UNSPECIFIED Qualifiers: Heart failure type: unspecified Heart failure chronicity: chronic Qualified Code(s): I50.9 - Heart failure, unspecified (4) CKD (chronic kidney disease) Code(s): N18.9 - CHRONIC KIDNEY DISEASE, UNSPECIFIED Qualifiers: Chronic kidney disease stage: stage 3 (moderate) Qualified Code(s): N18.3 - Chronic kidney disease, stage 3 (moderate) (5) HTN (hypertension) Code(s): I10 - ESSENTIAL (PRIMARY) HYPERTENSION Qualifiers: Hypertension type: essential hypertension Qualified Code(s): I10 - Essential (primary) hypertension (6) T2DM (type 2 diabetes mellitus) Code(s): E11.9 - TYPE 2 DIABETES MELLITUS WITHOUT COMPLICATIONS Qualifiers: Diabetes mellitus halfway insulin use: with fuel cell builder use Diabetes mellitus complication status: with kidney complications Diabetes mellitus complication detail: with chronic kidney disease Chronic kidney disease stage : stage 3 (moderate) Qualified Code(s): E11.22 - Type 2 diabetes mellitus with diabetic chronic kidney disease; N18.3 - Chronic kidney disease, stage 3 ( moderate); Z79.4 - correction (current) use of insulin <Alfie Carrizales - Last Filed: 02/09/19 11:32>
--- NOTE | 2019-02-05 18:43 | PN ---
Physical Exam: SUBJECTIVE: Patient seen and examined; still spiking low grade temps; OBJECTIVE: Vital Signs Period Temp Pulse Resp BP Sys/Cano Pulse Ox Last 24 Hr 97.9 F-100.2 F 69-101 18-20 105-152/51-74 98-99 GENERAL: The patient is awake, alert, and fully oriented, in no acute distress LUNGS: decreased breath sounds; will not take in a deep breath HEART: Regular rate and rhythm, S1, S2 without murmur, rub or gallop. ABDOMEN: obese; bs+ EXTREMITIES: 2+ pulses, warm, well-perfused, LLE edema>r; pedal pulses 1+ NEUROLOGICAL: Cranial nerves II through XII grossly intact. Normal speech, gait not observed. Laboratory Results - last 24 hr 02/04/19 02/05/19 02/05/19 21:22 05:20 06:00 Sodium Potassium Chloride Carbon Dioxide Anion Gap BUN Creatinine Creat Clearance w eGFR POC Glucometer 174 133 Random Glucose Calcium Total Bilirubin AST ALT Alkaline Phosphatase Total Protein Albumin Random Vancomycin 12.7 L 02/05/19 02/05/19 06:00 12:06 Sodium 140 Potassium 3.9 Chloride 110 H Carbon Dioxide 24 Anion Gap 6 L BUN 35 H Creatinine 1.5 H Creat Clearance w eGFR 47.58 POC Glucometer 193 Random Glucose 117 H Calcium 7.4 L Total Bilirubin 0.6 AST 17 ALT 11 L Alkaline Phosphatase 73 Total Protein 6.3 L Albumin 1.5 L Random Vancomycin Active Medications Generic Name Dose Route Start Last Admin Trade Name Freq PRN Reason Stop Dose Admin Acetaminophen 650 mg 01/25/19 15:01 02/05/19 05:25 Tylenol - PO 650 mg Q6H PRN Administration FEVER Amino Acids 30 ml 01/25/19 17:30 02/05/19 16:44 Prosource No Carb Liquid Pkt PO Not Given BID@0800,1730 [facility] Aspirin 81 mg 01/15/19 10:00 02/05/19 10:28 Asa - PO Not Given DAILY [facility] Atorvastatin Calcium 20 mg 01/15/19 22:00 02/04/19 21:19 Lipitor - PO 20 mg HS [facility] Administration Bacitracin 1 applic 01/18/19 11:45 02/05/19 10:29 Bacitracin - TP 1 applic DAILY [facility] Administration Clopidogrel Bisulfate 75 mg 01/16/19 07:00 02/04/19 06:17 Plavix - PO 75 mg AM [facility] Administration Ferrous Sulfate 325 mg 02/02/19 08:00 02/05/19 10:28 Feosol - PO 325 mg DAILY@0800 [facility] Administration Finasteride 5 mg 02/01/19 10:00 02/05/19 10:28 Proscar - PO 5 mg DAILY [facility] Administration Folic Acid 1 mg 01/29/19 10:00 02/05/19 10:28 Folic Acid - PO 1 mg DAILY [facility] Administration Heparin Sodium (Porcine) 5,000 unit 02/04/19 22:00 02/05/19 10:29 Heparin - SQ Not Given BID [facility] IV Flush 4 ml 01/28/19 08:56 01/31/19 05:32 Triple Lumen Flush IVPUSH 4 ml PRN PRN Administration Protocol IV Flush 4 ml 02/04/19 10:27 Triple Lumen Flush IVPUSH PRN PRN Protocol Meropenem 1 gm/ Dextrose 100 mls @ 200 mls/hr 01/22/19 22:00 02/05/19 10:29 IVPB 200 mls/hr Q12H [facility] Administration Vancomycin HCl 1,000 mg in 250 mls @ 200 mls/hr 02/05/19 12:30 02/05/19 12:22 Vancomycin (Pre-Docked) IVPB 200 mls/hr Q24H [facility] Administration Protocol Insulin Aspart 1 vial 01/15/19 11:00 02/05/19 16:44 Novolog Vial Sliding Scale - SQ Not Given ACHS COUNTS INCLUDE 234 BEDS AT [facility] Protocol Insulin Detemir 20 units 02/03/19 17:42 02/05/19 16:44 Levemir Vial SQ Not Given BIDI COUNTS INCLUDE 234 BEDS AT THE [facility] Lactobacillus Acidophilus 1 tab 01/31/19 11:45 02/05/19 10:28 Bacid - PO 1 tab DAILY [facility] 234 BEDS AT [facility] Administration Metoprolol Succinate 50 mg 01/16/19 07:00 02/04/19 06:17 Toprol Xl - PO 50 mg AM [facility] Administration Nystatin 500,000 units 02/01/19 12:00 02/05/19 17:17 Nystatin Oral Suspension - PO Not Given Q6HPO COUNTS INCLUDE 234 BEDS AT [facility] Promethazine HCl 12.5 mg 01/15/19 16:50 Phenergan Injection - IVPB Q6H PRN NAUSEA AND/OR VOMITING Ranitidine HCl 150 mg 01/28/19 10:00 02/05/19 10:28 Zantac - PO 150 mg BID [facility] Administration Tamsulosin HCl 0.4 mg 01/16/19 08:30 02/05/19 10:28 Flomax - PO 0.4 mg DAILY@0830 [facility] Administration ASSESSMENT/PLAN: 59 year old male with history of DM 2, HTN, HLD, PAD, CAD s/p PCI, CKD 3, presented to the ED with LLE pain, found to have infected LLE ulcer. #cellulitis CORY; ulcer -ct scan noted;increased swelling; possible abcess/fascitis -vascular notified -getting taken to OR today for drain #AMADOU on CKD -improving; ml sec to sepsis -avoid nephrotoxins #IDDM - insulin ss -bgm #HTN -metoprolol ##normocytic anemia with iron def anemia: -iron studies + for iron def; -replace oral iron -transfuse if <7 #CAD: -asa/plavix DVT ppl gi ppl Visit type - Emergency Visit Emergency Visit: Yes ED Registration Date: 01/13/19 Care time: The patient presented to the Emergency Department on the above date and was hospitalized for further evaluation of their emergent condition. - New Patient This patient is new to me today: No - Critical Care Critical Care patient: No
[2019-02-05] MEDS ORDERED: PROPOFOL 20 ML ONE (19:10)
[2019-02-05] MEDS ORDERED: ROCURONIUM BROMIDE 50 MG/5 ML VIAL ONE (19:10)
[2019-02-05] MEDS ORDERED: MIDAZOLAM HCL 2 MG/2 ML SINGLE DOSE VIAL ONE (19:11)
[2019-02-05] MEDS ORDERED: DEXAMETHASONE SOD PHOSPHATE 4 MG/1 ML VIAL ONE (19:39)
--- NOTE | 2019-02-05 20:53 | PN ---
Progress Note (short form) - Note Progress Note: problems 1. AMADOU 2. lower ext edema 3. leg pain 4. HTN 5. DM 6. CKD Current Medications Acetaminophen (Tylenol -) 650 mg PO Q6H PRN PRN Reason: FEVER Last Admin: 02/05/19 05:25 Dose: 650 mg Amino Acids (Prosource No Carb Liquid Pkt) 30 ml PO BID@0800,1730 [facility] Last Admin: 02/05/19 16:44 Dose: Not Given Aspirin (Asa -) 81 mg PO DAILY [facility] Last Admin: 02/05/19 10:28 Dose: Not Given Atorvastatin Calcium (Lipitor -) 20 mg PO HS [facility] Last Admin: 02/04/19 21:19 Dose: 20 mg Bacitracin (Bacitracin -) 1 applic TP DAILY [facility] Last Admin: 02/05/19 10:29 Dose: 1 applic Clopidogrel Bisulfate (Plavix -) 75 mg PO AM [facility] Last Admin: 02/04/19 06:17 Dose: 75 mg Ferrous Sulfate (Feosol -) 325 mg PO DAILY@0800 [facility] Last Admin: 02/05/19 10:28 Dose: 325 mg Finasteride (Proscar -) 5 mg PO DAILY [facility] Last Admin: 02/05/19 10:28 Dose: 5 mg Folic Acid (Folic Acid -) 1 mg PO DAILY [facility] Last Admin: 02/05/19 10:28 Dose: 1 mg Heparin Sodium (Porcine) (Heparin -) 5,000 unit SQ BID [facility] Last Admin: 02/05/19 10:29 Dose: Not Given IV Flush (Triple Lumen Flush) 4 ml IVPUSH PRN PRN PRN Reason: Protocol Last Admin: 01/31/19 05:32 Dose: 4 ml IV Flush (Triple Lumen Flush) 4 ml IVPUSH PRN PRN PRN Reason: Protocol Meropenem 1 gm/ Dextrose 100 mls @ 200 mls/hr IVPB Q12H [facility] Last Admin: 02/05/19 10:29 Dose: 200 mls/hr Vancomycin HCl (Vancomycin (Pre-Docked)) 1,000 mg in 250 mls @ 200 mls/hr IVPB Q24H [facility]; Protocol Last Admin: 02/05/19 12:22 Dose: 200 mls/hr Insulin Aspart (Novolog Vial Sliding Scale -) 1 vial SQ ACHS [facility]; Protocol Last Admin: 02/05/19 16:44 Dose: Not Given Insulin Detemir (Levemir Vial) 20 units SQ BIDI [facility] Last Admin: 02/05/19 16:44 Dose: Not Given Lactobacillus Acidophilus (Bacid -) 1 tab PO DAILY [facility] Last Admin: 02/05/19 10:28 Dose: 1 tab Metoprolol Succinate (Toprol Xl -) 50 mg PO AM [facility] Last Admin: 02/04/19 06:17 Dose: 50 mg Nystatin (Nystatin Oral Suspension -) 500,000 units PO Q6HPO [facility] Last Admin: 02/05/19 17:17 Dose: Not Given Promethazine HCl (Phenergan Injection -) 12.5 mg IVPB Q6H PRN PRN Reason: NAUSEA AND/OR VOMITING Ranitidine HCl (Zantac -) 150 mg PO BID [facility] Last Admin: 02/05/19 10:28 Dose: 150 mg Tamsulosin HCl (Flomax -) 0.4 mg PO DAILY@0830 [facility] Last Admin: 02/05/19 10:28 Dose: 0.4 mg Last Vital Signs Temp Pulse Resp BP Pulse Ox 99.7 F H 93 H 18 152/74 98 02/05/19 17:36 02/05/19 17:36 02/05/19 17:36 02/05/19 17:36 02/05/19 09:00 lungs clear heart reg abd soft non tender ext no edema CBC, [facility] 02/04/19 10:30 02/05/19 06:00 CBC, [facility] 01/17/19 07:00 01/17/19 07:00 CBC, [facility] 01/16/19 07:00 01/16/19 07:00 Plan same rx
[2019-02-05] MEDS ORDERED: METOPROLOL TARTRATE 5 MG/5 ML VIAL ONE (21:18)
[2019-02-05] MEDS ORDERED: ONDANSETRON 4 MG/2 ML VIAL IVPUSH PRN ×2 (21:27→21:54)
[2019-02-05] MEDS ORDERED: LACTATED RINGERS SOLUTION 1,000 ML IV SCH (21:30)
--- NOTE | 2019-02-05 21:35 | OP ---
Operative Note - Note: Operative Date: 02/05/19 Pre-Operative Diagnosis: left lower leg abscess Operation: incision and drainage of left lower leg abscess, complicated/multiple Findings: extensive wound cavity across upper posterior calf in subcutaneous planes with extensions superiorly into superficial and deep planes, and inferiorly along medial calf toward additional medial cavity - all in continuity, copious pus evacuated and cultured, also bloody drainage - cavity irrigated via 3 counterincisions and opening from removing superficial yellow necrotic skin spot ; 3 Amanda drains left to connect all open areas, entire spaced packed as well with single betadine-saline dampened Kerlix gauze Post-Operative Diagnosis: Same as Pre-op Surgeon: Clement Oscar Anesthesiologist/CLASSIFICATIONS OFFICER CC/CM: Holli Mesa Anesthesia: General Specimens Removed: culture of pus to micro Estimated Blood Loss (mls): 30 Drains & Tubes with Location: Chandler drains x 3, across posterior upper left calf, from lateral to central opening, from central to medial opening, from medial upper to medial lower opening - all sewn to themselves to maintain open tracts Fluid Volume Replaced (mls): 700 (crystalloid) Operative Report Dictated: Yes
[2019-02-05] MEDS ORDERED: METOPROLOL TARTRATE 5 MG/5 ML VIAL IVPUSH ONE (21:36)
[2019-02-05] MEDS ORDERED: oxyCODONE HCL 5 MG TABLET PO PRN (21:40)
[2019-02-05] MEDS ORDERED: ACETAMINOPHEN 325 MG TABLET (FP) PO PRN ×3 (21:44→22:05)
[2019-02-05] MEDS ORDERED: PROMETHAZINE HCL 25 MG/1 ML VIAL IVPB PRN (21:54)
[2019-02-05] MEDS ORDERED: TRIPLE LUMEN FLUSH 4 ML ML IVPUSH PRN ×2 (21:54)
[2019-02-05] MEDS: ATORVASTATIN CA 20 MG TABLET (FP) PO SCH (22:33)
[2019-02-06] MEDS: NYSTATIN 500,000 UNITS/5 ML SUSPENSION PO SCH ×4 (01:41→18:24)
[2019-02-06] MEDS: INSULIN (LEVEMIR) 100 UNITS/ML UNITS SQ SCH ×2 (06:14→16:24)
[2019-02-06] MEDS: INSULIN SLIDING SCALE (NOVOLOG) 1 VIAL SQ SCH ×4 (06:15→22:06)
[2019-02-06] MEDS: CLOPIDOGREL BISULFATE 75 MG TABLET (FP) PO SCH (06:24)
[2019-02-06] MEDS ORDERED: PT OWN MED DRAWER 7, Y5N ONE (08:13)
[2019-02-06] MEDS ORDERED: INSULIN (LEVEMIR) 100 UNITS/ML UNITS SQ ONE (08:14)
[2019-02-06] MEDS: FERROUS SO4 325 MG TABLET (FP) PO SCH (10:01)
[2019-02-06] MEDS: TAMSULOSIN HCL 0.4 MG CAP PO SCH (10:01)
[2019-02-06] MEDS: AMINO ACIDS/PROTEIN HYDROLYS 30 ML LIQUID.PKT PO SCH ×2 (10:01→18:24)
[2019-02-06] MEDS: ASPIRIN 81 MG CHEWABLE TABLETS PO SCH (10:01)
[2019-02-06] MEDS: RANITIDINE HCL 150 MG TABLET (FP) PO SCH ×2 (10:02→22:06)
[2019-02-06] MEDS: HEPARIN NA (PORCINE) 5,000 UNITS/ML 1ML VIAL SQ SCH ×2 (10:02→22:06)
[2019-02-06] MEDS: LACTOBACILLUS ACIDOPHILUS 1 TABLET PO SCH (10:02)
[2019-02-06] MEDS: FINASTERIDE 5 MG TABLET (FP) PO SCH (10:02)
[2019-02-06] MEDS: FOLIC ACID 1 MG TABLET (FP) PO SCH (10:02)
[2019-02-06] MEDS: MEROPENEM 1 GM in DEXTROSE 5%-WATER 100 ML IVPB SCH ×2 (10:03→22:07)
[2019-02-06] MEDS: VANCOMYCIN 1 GRAM (PRE-DOCKED) 1,000 MG/250 ML BAG IVPB SCH (12:11)
--- NOTE | 2019-02-06 15:47 | PN ---
Physical Exam: SUBJECTIVE: Patient seen and examined, left leg pain. no other complaints. OBJECTIVE: Vital Signs Period Temp Pulse Resp BP Sys/Cano Pulse Ox Last 24 Hr 98.4 F-99.7 F 69-108 14-20 102-152/50-75 99-100 Intake & Output 02/03/19 02/04/19 02/05/19 02/06/19 23:59 23:59 23:59 23:59 Intake Total 579 007 9215 Output Total 800 800 200 Balance -310 -100 2100 Weight 248 lb 1.6 oz 249 lb 3.2 oz 253 lb 4 oz 247 lb 1.6 oz GENERAL: The patient is awake, alert, and fully oriented, in no acute distress. HEAD: Normal with no signs of trauma. EYES: PERRL, extraocular movements intact, sclera anicteric, conjunctiva clear. No ptosis. ENT: Ears normal, nares patent, oropharynx clear without exudates, moist mucous membranes. NECK: Trachea midline, full range of motion, supple. LUNGS: Breath sounds equal, clear to auscultation bilaterally, no wheezes, no crackles, no accessory muscle use. HEART: Regular rate and rhythm, S1, S2 ABDOMEN: Soft, nontender, nondistended, normoactive bowel sounds, no guarding, no rebound EXTREMITIES: left leg dressing, mild blood soaked, left foot edema improved, tender on exam, further exam deferred PSYCH: Normal mood, normal affect. SKIN: Warm, dry, normal turgor, no rashes or lesions noted Laboratory Results - last 24 hr 02/05/19 02/06/19 02/06/19 22:35 05:48 11:59 POC Glucometer 235 253 225 Active Medications Generic Name Dose Route Start Last Admin Trade Name Freq PRN Reason Stop Dose Admin Acetaminophen 650 mg 02/05/19 22:05 Tylenol - PO Q6H PRN PAIN LEVEL 4-10 OR FEVER Amino Acids 30 ml 02/06/19 08:00 02/06/19 10:01 Prosource No Carb Liquid Pkt PO 30 ml BID@0800,1730 [facility] Administration Aspirin 81 mg 02/06/19 10:00 02/06/19 10:01 Asa - PO 81 mg DAILY [facility] Administration Atorvastatin Calcium 20 mg 02/05/19 22:00 02/05/19 22:33 Lipitor - PO 20 mg HS [facility] Administration Clopidogrel Bisulfate 75 mg 02/06/19 07:00 02/06/19 06:24 Plavix - PO 75 mg AM [facility] Administration Ferrous Sulfate 325 mg 02/06/19 08:00 02/06/19 10:01 Feosol - PO 325 mg DAILY@0800 [facility] Administration Finasteride 5 mg 02/06/19 10:00 02/06/19 10:02 Proscar - PO 5 mg DAILY [facility] Administration Folic Acid 1 mg 02/06/19 10:00 02/06/19 10:02 Folic Acid - PO 1 mg DAILY [facility] Administration Heparin Sodium (Porcine) 5,000 unit 02/05/19 22:00 02/06/19 10:02 Heparin - SQ 5,000 unit BID [facility] Administration IV Flush 4 ml 02/05/19 21:54 Triple Lumen Flush IVPUSH PRN PRN Protocol IV Flush 4 ml 02/05/19 21:54 Triple Lumen Flush IVPUSH PRN PRN Protocol Meropenem 1 gm/ Dextrose 100 mls @ 200 mls/hr 02/05/19 22:30 02/06/19 10:03 IVPB 200 mls/hr BID [facility] Administration Vancomycin HCl 1,000 mg in 250 mls @ 200 mls/hr 02/06/19 12:30 02/06/19 12:11 Vancomycin (Pre-Docked) IVPB 200 mls/hr Q24H [facility] Administration Protocol Insulin Aspart 1 vial 02/05/19 22:00 02/06/19 12:11 Novolog Vial Sliding Scale - SQ 4 unit ACHS [facility] Administration Protocol Insulin Detemir 20 units 02/06/19 07:00 02/06/19 06:14 Levemir Vial SQ 20 units BIDI [facility] Administration Lactobacillus Acidophilus 1 tab 02/06/19 10:00 02/06/19 10:02 Bacid - PO 1 tab DAILY [facility] Administration Metoprolol Succinate 50 mg 02/06/19 07:00 02/06/19 06:23 Toprol Xl - PO 50 mg AM [facility] Administration Nystatin 500,000 units 02/06/19 00:00 02/06/19 12:11 Nystatin Oral Suspension - PO 500,000 units Q6HPO [facility] Administration Ondansetron HCl 4 mg 02/05/19 21:54 Zofran Injection IVPUSH Q6H PRN NAUSEA AND/OR VOMITING Oxycodone HCl 5 mg 02/05/19 21:54 Roxicodone - PO Q6H PRN Pain Level 7 - 10 BREAKTHROUGH Promethazine HCl 12.5 mg 02/05/19 21:54 Phenergan Injection - IVPB Q6H PRN NAUSEA AND/OR VOMITING Ranitidine HCl 150 mg 02/05/19 22:00 02/06/19 10:02 Zantac - PO 150 mg BID [facility] Administration Tamsulosin HCl 0.4 mg 02/06/19 08:30 02/06/19 10:01 Flomax - PO 0.4 mg DAILY@0830 [facility] Administration Microbiology 02/05/19 19:56 Leg - Left Lower Gram Stain - Final 02/04/19 10:30 Blood - Central Line Blood Culture - Preliminary NO GROWTH OBTAINED AFTER 48 HOURS, INCUBATION TO CONTINUE FOR 3 DAYS. 02/04/19 10:45 Blood - Peripheral Venous Blood Culture - Preliminary NO GROWTH OBTAINED AFTER 48 HOURS, INCUBATION TO CONTINUE FOR 3 DAYS. 01/26/19 18:00 Blood - Peripheral Venous Blood Culture - Final NO GROWTH AFTER 5 DAYS INCUBATION 01/26/19 18:00 Blood - Peripheral Venous Blood Culture - Final NO GROWTH AFTER 5 DAYS INCUBATION 01/29/19 10:50 Wound-Other Gram Stain - Final 01/29/19 10:50 Wound-Other Wound Culture - Final NO GROWTH AFTER 48 HOURS INCUBATION 01/27/19 07:10 Urine - Urine Clean Catch Urine Culture - Final NO GROWTH OBTAINED 01/22/19 06:30 Blood - Peripheral Venous Blood Culture - Final NO GROWTH AFTER 5 DAYS INCUBATION 01/22/19 06:30 Blood - Peripheral Venous Blood Culture - Final NO GROWTH AFTER 5 DAYS INCUBATION 01/23/19 20:30 Stool Clostridium difficile Antigen (AMBER) - Final 01/23/19 20:30 Stool Clostridium difficile Toxin Assay - Final 01/17/19 14:58 Blood - Peripheral Venous Blood Culture - Final NO GROWTH AFTER 5 DAYS INCUBATION 01/17/19 13:50 Blood - Peripheral Venous Blood Culture - Final NO GROWTH AFTER 5 DAYS INCUBATION 01/18/19 12:00 Calf - Left Posterior Gram Stain - Final 01/18/19 12:00 Calf - Left Posterior Wound Culture - Final Mr S Aureus 01/17/19 13:35 Urine - Urine Lee Urine Culture - Final NO GROWTH OBTAINED ASSESSMENT/PLAN: 59 yom with PMHx of IDDM, HTN, HLD, PAD, CAD s/p PCI, CKD, admitted with LLE pain, AMADOU. -LLE loculated/complicated abscess s/p I&D 02/05/2019 -AMADOU, suspect from infection/urinary retention -IDDM -HTN -Acute on chronic anemia, suspect multifactorial from iron deficiency, renal dysfunction s/p 3 units PRBC -HLD -PAD -CAD s/p PCI Plan: Surgery input noted. S/p I&D with extensive wound cavity and purulent bloody drainage. Follow up wound cultures. Wound care per surgery. Meropenem/vancomycin. Vanco levels in AM. Follow up ID input. Blood cx from central/peripheral line neg so far. Discuss with IR for central line change if neg at 48 hours. Arterial duplex noted, discussed with Dr. Zamarripa, no active intervention. Continue ASA/Plavix. Continue flomax. renal/bladder US noted. s/p 3 units PRBC, h/h stable, monitor for now. Continue PO iron suppl. Levemir 20 units BID, titrate per blood sugar readings. ISS, diabetic diet. Heparin subq BID with close monitoring of h/h. Dispo pending clinical improvement Plan discussed with patient and nursing in detail, all questions answered. Visit type - Emergency Visit Emergency Visit: Yes ED Registration Date: 01/13/19 Care time: The patient presented to the Emergency Department on the above date and was hospitalized for further evaluation of their emergent condition. - New Patient This patient is new to me today: No - Critical Care Critical Care patient: No - Discharge Referral Referred to [facility] No
--- NOTE | 2019-02-06 15:54 | PN ---
Progress Note, Physician History of Present Illness: Pt seen and examined. Events noted, labs reviewed. s/p I+D of LLE. Currently pt afebrile, without specific complaints. Denies pain. - Current Medication List Current Medications: Active Medications Acetaminophen (Tylenol -) 650 mg PO Q6H PRN PRN Reason: PAIN LEVEL 4-10 OR FEVER Amino Acids (Prosource No Carb Liquid Pkt) 30 ml PO BID@0800,1730 [facility] Last Admin: 02/06/19 10:01 Dose: 30 ml Aspirin (Asa -) 81 mg PO DAILY [facility] Last Admin: 02/06/19 10:01 Dose: 81 mg Atorvastatin Calcium (Lipitor -) 20 mg PO HS [facility] Last Admin: 02/05/19 22:33 Dose: 20 mg Clopidogrel Bisulfate (Plavix -) 75 mg PO AM [facility] Last Admin: 02/06/19 06:24 Dose: 75 mg Ferrous Sulfate (Feosol -) 325 mg PO DAILY@0800 [facility] Last Admin: 02/06/19 10:01 Dose: 325 mg Finasteride (Proscar -) 5 mg PO DAILY [facility] Last Admin: 02/06/19 10:02 Dose: 5 mg Folic Acid (Folic Acid -) 1 mg PO DAILY [facility] Last Admin: 02/06/19 10:02 Dose: 1 mg Heparin Sodium (Porcine) (Heparin -) 5,000 unit SQ BID [facility] Last Admin: 02/06/19 10:02 Dose: 5,000 unit IV Flush (Triple Lumen Flush) 4 ml IVPUSH PRN PRN PRN Reason: Protocol IV Flush (Triple Lumen Flush) 4 ml IVPUSH PRN PRN PRN Reason: Protocol Meropenem 1 gm/ Dextrose 100 mls @ 200 mls/hr IVPB BID [facility] Last Admin: 02/06/19 10:03 Dose: 200 mls/hr Vancomycin HCl (Vancomycin (Pre-Docked)) 1,000 mg in 250 mls @ 200 mls/hr IVPB Q24H [facility]; Protocol Last Admin: 02/06/19 12:11 Dose: 200 mls/hr Insulin Aspart (Novolog Vial Sliding Scale -) 1 vial SQ ACHS [facility]; Protocol Last Admin: 02/06/19 12:11 Dose: 4 unit Insulin Detemir (Levemir Vial) 20 units SQ BIDI [facility] Last Admin: 02/06/19 06:14 Dose: 20 units Lactobacillus Acidophilus (Bacid -) 1 tab PO DAILY [facility] Last Admin: 02/06/19 10:02 Dose: 1 tab Metoprolol Succinate (Toprol Xl -) 50 mg PO AM [facility] Last Admin: 02/06/19 06:23 Dose: 50 mg Nystatin (Nystatin Oral Suspension -) 500,000 units PO Q6HPO [facility] Last Admin: 02/06/19 12:11 Dose: 500,000 units Ondansetron HCl (Zofran Injection) 4 mg IVPUSH Q6H PRN PRN Reason: NAUSEA AND/OR VOMITING Oxycodone HCl (Roxicodone -) 5 mg PO Q6H PRN PRN Reason: Pain Level 7 - 10 BREAKTHROUGH Promethazine HCl (Phenergan Injection -) 12.5 mg IVPB Q6H PRN PRN Reason: NAUSEA AND/OR VOMITING Ranitidine HCl (Zantac -) 150 mg PO BID [facility] Last Admin: 02/06/19 10:02 Dose: 150 mg Tamsulosin HCl (Flomax -) 0.4 mg PO DAILY@0830 [facility] Last Admin: 02/06/19 10:01 Dose: 0.4 mg - Objective Vital Signs: Vital Signs Temperature 98.7 F 02/06/19 05:00 Pulse Rate 87 02/06/19 05:00 Respiratory Rate 20 02/06/19 05:00 Blood Pressure 105/53 L 02/06/19 05:00 O2 Sat by Pulse Oximetry (%) 99 02/06/19 03:30 Constitutional: Yes: No Distress, Calm Cardiovascular: Yes: Regular Rate and Rhythm Respiratory: Yes: Regular Gastrointestinal: Yes: Normal Bowel Sounds, Soft Wound/Incision: Yes: Other (LLE intact, drains) Neurological: Yes: Alert Labs: CBC, BMP 02/04/19 10:30 02/05/19 06:00 INR, PTT INR 1.19 (0.83-1.09) H 01/28/19 09:20 Microbiology 02/05/19 19:56 Leg - Left Lower Gram Stain - Final 02/04/19 10:30 Blood - Central Line Blood Culture - Preliminary NO GROWTH OBTAINED AFTER 48 HOURS, INCUBATION TO CONTINUE FOR 3 DAYS. 02/04/19 10:45 Blood - Peripheral Venous Blood Culture - Preliminary NO GROWTH OBTAINED AFTER 48 HOURS, INCUBATION TO CONTINUE FOR 3 DAYS. 01/26/19 18:00 Blood - Peripheral Venous Blood Culture - Final NO GROWTH AFTER 5 DAYS INCUBATION 01/26/19 18:00 Blood - Peripheral Venous Blood Culture - Final NO GROWTH AFTER 5 DAYS INCUBATION 01/29/19 10:50 Wound-Other Gram Stain - Final 01/29/19 10:50 Wound-Other Wound Culture - Final NO GROWTH AFTER 48 HOURS INCUBATION 01/27/19 07:10 Urine - Urine Clean Catch Urine Culture - Final NO GROWTH OBTAINED 01/22/19 06:30 Blood - Peripheral Venous Blood Culture - Final NO GROWTH AFTER 5 DAYS INCUBATION 01/22/19 06:30 Blood - Peripheral Venous Blood Culture - Final NO GROWTH AFTER 5 DAYS INCUBATION 01/23/19 20:30 Stool Clostridium difficile Antigen (AMBER) - Final 01/23/19 20:30 Stool Clostridium difficile Toxin Assay - Final 01/17/19 14:58 Blood - Peripheral Venous Blood Culture - Final NO GROWTH AFTER 5 DAYS INCUBATION 01/17/19 13:50 Blood - Peripheral Venous Blood Culture - Final NO GROWTH AFTER 5 DAYS INCUBATION 01/18/19 12:00 Calf - Left Posterior Gram Stain - Final 01/18/19 12:00 Calf - Left Posterior Wound Culture - Final Mr S Aureus 01/17/19 13:35 Urine - Urine Lee Urine Culture - Final NO GROWTH OBTAINED Problem List - Problems (1) AMADOU (acute kidney injury) Code(s): N17.9 - ACUTE KIDNEY FAILURE, UNSPECIFIED (2) CHF (congestive heart failure) Code(s): I50.9 - HEART FAILURE, UNSPECIFIED Qualifiers: Qualified Code(s): I50.9 - Heart failure, unspecified (3) CKD (chronic kidney disease) Code(s): N18.9 - CHRONIC KIDNEY DISEASE, UNSPECIFIED Qualifiers: Qualified Code(s): N18.3 - Chronic kidney disease, stage 3 (moderate) (4) Cellulitis of left lower extremity Code(s): L03.116 - CELLULITIS OF LEFT LOWER LIMB (5) HTN (hypertension) Code(s): I10 - ESSENTIAL (PRIMARY) HYPERTENSION Qualifiers: Qualified Code(s): I10 - Essential (primary) hypertension (6) T2DM (type 2 diabetes mellitus) Code(s): E11.9 - TYPE 2 DIABETES MELLITUS WITHOUT COMPLICATIONS Qualifiers: Qualified Code(s): E11.22 - Type 2 diabetes mellitus with diabetic chronic kidney disease; N18.3 - Chronic kidney disease, stage 3 (moderate); Z79.4 - MCFP (current) use of insulin Assessment/Plan LLE Cellulitis/ Abscess s/p I+D Fever - resolved --operative note reviewed, labs noted -- follow up wound cultures -- continue current antibiotics for now, will de-escalate once culture results available -- wound care
[2019-02-06] MEDS: oxyCODONE HCL 5 MG TABLET PO PRN (16:23)
--- NOTE | 2019-02-06 18:15 | PN ---
Progress Note, Physician History of Present Illness: Patient with LLE swelling throughout and progressive CT changes suggestive of developing infection in tissue planes, with identification of purulence draining from fluctuant areas ultimately requiring OR I&D last night. Large area of purulence evacuated from planes of upper posterior calf with extensions into deeper tissues at and above popliteal fossa, and four openings left for drainage with Amanda drains to maintain tracts and packing of all reachable spaces. Antibiotics per ID continue, had been spiking fevers but not overnight. Pt seen and examined in bed, notes some pain but cannot quantify, though appears comfortable and is doing ok on prn tylenol per nursing. Dressing has been reinforced at least once already and is draining/staining pink through posteriorly. Intraoperative culture pending. - Current Medication List Current Medications: Active Medications Acetaminophen (Tylenol -) 650 mg PO Q6H PRN PRN Reason: PAIN LEVEL 4-10 OR FEVER Amino Acids (Prosource No Carb Liquid Pkt) 30 ml PO BID@0800,1730 [facility] Last Admin: 02/06/19 10:01 Dose: 30 ml Aspirin (Asa -) 81 mg PO DAILY [facility] Last Admin: 02/06/19 10:01 Dose: 81 mg Atorvastatin Calcium (Lipitor -) 20 mg PO HS [facility] Last Admin: 02/05/19 22:33 Dose: 20 mg Clopidogrel Bisulfate (Plavix -) 75 mg PO AM [facility] Last Admin: 02/06/19 06:24 Dose: 75 mg Ferrous Sulfate (Feosol -) 325 mg PO DAILY@0800 [facility] Last Admin: 02/06/19 10:01 Dose: 325 mg Finasteride (Proscar -) 5 mg PO DAILY [facility] Last Admin: 02/06/19 10:02 Dose: 5 mg Folic Acid (Folic Acid -) 1 mg PO DAILY [facility] Last Admin: 02/06/19 10:02 Dose: 1 mg Heparin Sodium (Porcine) (Heparin -) 5,000 unit SQ BID [facility] Last Admin: 02/06/19 10:02 Dose: 5,000 unit IV Flush (Triple Lumen Flush) 4 ml IVPUSH PRN PRN PRN Reason: Protocol IV Flush (Triple Lumen Flush) 4 ml IVPUSH PRN PRN PRN Reason: Protocol Meropenem 1 gm/ Dextrose 100 mls @ 200 mls/hr IVPB BID [facility] Last Admin: 02/06/19 10:03 Dose: 200 mls/hr Vancomycin HCl (Vancomycin (Pre-Docked)) 1,000 mg in 250 mls @ 200 mls/hr IVPB Q24H [facility]; Protocol Last Admin: 02/06/19 12:11 Dose: 200 mls/hr Insulin Aspart (Novolog Vial Sliding Scale -) 1 vial SQ ACHS [facility]; Protocol Last Admin: 02/06/19 16:24 Dose: 4 unit Insulin Detemir (Levemir Vial) 20 units SQ BIDI [facility] Last Admin: 02/06/19 16:24 Dose: 20 units Lactobacillus Acidophilus (Bacid -) 1 tab PO DAILY [facility] Last Admin: 02/06/19 10:02 Dose: 1 tab Metoprolol Succinate (Toprol Xl -) 50 mg PO AM [facility] Last Admin: 02/06/19 06:23 Dose: 50 mg Nystatin (Nystatin Oral Suspension -) 500,000 units PO Q6HPO [facility] Last Admin: 02/06/19 12:11 Dose: 500,000 units Ondansetron HCl (Zofran Injection) 4 mg IVPUSH Q6H PRN PRN Reason: NAUSEA AND/OR VOMITING Oxycodone HCl (Roxicodone -) 5 mg PO Q6H PRN PRN Reason: Pain Level 7 - 10 BREAKTHROUGH Last Admin: 02/06/19 16:23 Dose: 5 mg Promethazine HCl (Phenergan Injection -) 12.5 mg IVPB Q6H PRN PRN Reason: NAUSEA AND/OR VOMITING Ranitidine HCl (Zantac -) 150 mg PO BID [facility] Last Admin: 02/06/19 10:02 Dose: 150 mg Tamsulosin HCl (Flomax -) 0.4 mg PO DAILY@0830 [facility] Last Admin: 02/06/19 10:01 Dose: 0.4 mg - Objective Vital Signs: Vital Signs Temperature 98.5 F 02/06/19 09:00 Pulse Rate 80 02/06/19 09:00 Respiratory Rate 18 02/06/19 09:00 Blood Pressure 100/48 L 02/06/19 09:00 O2 Sat by Pulse Oximetry (%) 99 02/06/19 03:30 Constitutional: Yes: Well Nourished, No Distress, Calm Eyes: Yes: Conjunctiva Clear, EOM Intact HENT: Yes: Atraumatic, Normocephalic Extremities: Yes: Calf Tenderness (mostly over wound areas). No: Cool, Cyanosis Edema: Yes Edema: LLE: 2+ (less than several days ago overall) Integumentary: Yes: Incision (x4, dressed). No: Erythema (minimal if any), Rash Wound/Incision: Yes: Dressing Dry and Intact (intact but with pink staining through layers of gauze and padding), Dressing Removed (with nurse, and replaced - packing inside wound(s) not removed until tomorrow, Winkelman drains intact), Draining (serosang, no foul odor, not particularly tender), Unapproximated (4 open sites with 3 Penroses, upper posterior L calf). No: Bleeding Neurological: Yes: Alert, Oriented Labs: no new labs Microbiology 02/05/19 19:56 Gram Stain - Final Leg - Left Lower 02/04/19 10:30 Blood Culture - Preliminary Blood - Central Line NO GROWTH OBTAINED AFTER 48 HOURS, INCUBATION TO CONTINUE FOR 3 DAYS. 02/04/19 10:45 Blood Culture - Preliminary Blood - Peripheral Venous NO GROWTH OBTAINED AFTER 48 HOURS, INCUBATION TO CONTINUE FOR 3 DAYS. - ....Imaging Ultrasound: Report Reviewed (Doppler arterial noted - suggestive of LLE SFA stenosis) Problem List - Problems (1) Abscess of left lower leg Assessment/Plan: POD1 s/p complicated/multiple I&D of left lower leg abscess continue antibiotics per ID outer dressing changed with nurse will remove wound packing tomorrow will then continue outer dressings over Amanda drains to allow drainage from open areas reinforce or replace outer dressings PRN pain meds prn, encourage nonnarcotics first line will follow for improvement will need daily wound care at least with outer dressings (gauze, ABD pads, Kerlix wrapping) but no actual packing of wounds, even after discharge, depending on clinical course would recommend vascular evaluation as well, possibly have Dr. Martinez see to consider whether hyperbaric therapy might have any role in healing? if pt appears to need any further or more extensive intervention in deeper tissues of leg/knee, would defer to vascular or ortho for more invasive exploration discussed with Dr. Montoya of ID Code(s): L02.416 - CUTANEOUS ABSCESS OF LEFT LOWER LIMB (2) Pain and swelling of left lower leg Code(s): M79.662 - PAIN IN LEFT LOWER LEG; M79.89 - OTHER SPECIFIED SOFT TISSUE DISORDERS (3) Left leg pain Code(s): M79.605 - PAIN IN LEFT LEG (4) Fever Code(s): R50.9 - FEVER, UNSPECIFIED Qualifiers: Fever type: due to other condition Qualified Code(s): R50.81 - Fever presenting with conditions classified elsewhere (5) Anemia Code(s): D64.9 - ANEMIA, UNSPECIFIED Qualifiers: Anemia type: due to chronic kidney disease Chronic kidney disease stage: stage 3 (moderate) Qualified Code(s): N18.3 - Chronic kidney disease, stage 3 (moderate); D63.1 - Anemia in chronic kidney disease (6) HTN (hypertension) Code(s): I10 - ESSENTIAL (PRIMARY) HYPERTENSION Qualifiers: Hypertension type: essential hypertension Qualified Code(s): I10 - Essential (primary) hypertension (7) T2DM (type 2 diabetes mellitus) Code(s): E11.9 - TYPE 2 DIABETES MELLITUS WITHOUT COMPLICATIONS Qualifiers: Diabetes mellitus mcfp insulin use: with mcfp use Diabetes mellitus complication status: with kidney complications Diabetes mellitus complication detail: with chronic kidney disease Chronic kidney disease stage : stage 3 (moderate) Qualified Code(s): E11.22 - Type 2 diabetes mellitus with diabetic chronic kidney disease; N18.3 - Chronic kidney disease, stage 3 ( moderate); 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
[2019-02-06] MEDS ORDERED: INSULIN (NOVOLOG) ASPART 100 UNITS/ML 10ML VIAL ONE (20:58)
[2019-02-06] MEDS: ATORVASTATIN CA 20 MG TABLET (FP) PO SCH (22:06)
--- NOTE | 2019-02-06 22:14 | PN ---
Progress Note (short form) - Note Progress Note: problems 1. AMADOU 2. lower ext edema 3. leg pain 4. HTN 5. DM 6. CKD Current Medications Acetaminophen (Tylenol -) 650 mg PO Q6H PRN PRN Reason: PAIN LEVEL 4-10 OR FEVER Amino Acids (Prosource No Carb Liquid Pkt) 30 ml PO BID@0800,1730 [facility] Last Admin: 02/06/19 18:24 Dose: 30 ml Aspirin (Asa -) 81 mg PO DAILY [facility] Last Admin: 02/06/19 10:01 Dose: 81 mg Atorvastatin Calcium (Lipitor -) 20 mg PO HS [facility] Last Admin: 02/05/19 22:33 Dose: 20 mg Clopidogrel Bisulfate (Plavix -) 75 mg PO AM [facility] Last Admin: 02/06/19 06:24 Dose: 75 mg Ferrous Sulfate (Feosol -) 325 mg PO DAILY@0800 [facility] Last Admin: 02/06/19 10:01 Dose: 325 mg Finasteride (Proscar -) 5 mg PO DAILY [facility] Last Admin: 02/06/19 10:02 Dose: 5 mg Folic Acid (Folic Acid -) 1 mg PO DAILY [facility] Last Admin: 02/06/19 10:02 Dose: 1 mg Heparin Sodium (Porcine) (Heparin -) 5,000 unit SQ BID [facility] Last Admin: 02/06/19 10:02 Dose: 5,000 unit IV Flush (Triple Lumen Flush) 4 ml IVPUSH PRN PRN PRN Reason: Protocol IV Flush (Triple Lumen Flush) 4 ml IVPUSH PRN PRN PRN Reason: Protocol Meropenem 1 gm/ Dextrose 100 mls @ 200 mls/hr IVPB BID [facility] Last Admin: 02/06/19 10:03 Dose: 200 mls/hr Vancomycin HCl (Vancomycin (Pre-Docked)) 1,000 mg in 250 mls @ 200 mls/hr IVPB Q24H [facility]; Protocol Last Admin: 02/06/19 12:11 Dose: 200 mls/hr Insulin Aspart (Novolog Vial Sliding Scale -) 1 vial SQ ACHS [facility]; Protocol Last Admin: 02/06/19 16:24 Dose: 4 unit Insulin Detemir (Levemir Vial) 20 units SQ BIDI [facility] Last Admin: 02/06/19 16:24 Dose: 20 units Lactobacillus Acidophilus (Bacid -) 1 tab PO DAILY [facility] Last Admin: 02/06/19 10:02 Dose: 1 tab Metoprolol Succinate (Toprol Xl -) 50 mg PO AM [facility] Last Admin: 02/06/19 06:23 Dose: 50 mg Nystatin (Nystatin Oral Suspension -) 500,000 units PO Q6HPO [facility] Last Admin: 02/06/19 18:24 Dose: 500,000 units Ondansetron HCl (Zofran Injection) 4 mg IVPUSH Q6H PRN PRN Reason: NAUSEA AND/OR VOMITING Oxycodone HCl (Roxicodone -) 5 mg PO Q6H PRN PRN Reason: Pain Level 7 - 10 BREAKTHROUGH Last Admin: 02/06/19 16:23 Dose: 5 mg Promethazine HCl (Phenergan Injection -) 12.5 mg IVPB Q6H PRN PRN Reason: NAUSEA AND/OR VOMITING Ranitidine HCl (Zantac -) 150 mg PO BID [facility] Last Admin: 02/06/19 10:02 Dose: 150 mg Tamsulosin HCl (Flomax -) 0.4 mg PO DAILY@0830 [facility] Last Admin: 02/06/19 10:01 Dose: 0.4 mg Last Vital Signs Temp Pulse Resp BP Pulse Ox 98.7 F 76 18 108/54 L 99 02/06/19 17:00 02/06/19 17:00 02/06/19 17:00 02/06/19 17:00 02/06/19 09:00 lungs clear heart reg abd soft non tender ext no edema CBC, BMP 02/04/19 10:30 02/05/19 06:00 IMP- s/p amadou underlying ckd Plan same rx
[2019-02-07] MEDS: NYSTATIN 500,000 UNITS/5 ML SUSPENSION PO SCH ×5 (00:50→23:50)
[2019-02-07] MEDS: INSULIN SLIDING SCALE (NOVOLOG) 1 VIAL SQ SCH ×4 (06:17→22:51)
[2019-02-07] MEDS: INSULIN (LEVEMIR) 100 UNITS/ML UNITS SQ SCH ×2 (06:17→22:51)
[2019-02-07] MEDS: CLOPIDOGREL BISULFATE 75 MG TABLET (FP) PO SCH (06:18)
[2019-02-07 07:12] LABS: BASO % 0.4 % (0-2.0); EOS % 1.7 % (0-4.5); HEMATOCRIT 20.7 % (35.4-49); HEMOGLOBIN 7.2 GM/dL (11.7-16.9); LYMPH % 14.5 % (8-40); MCH 29.8 pg (25.7-33.7); MCHC 34.5 g/dl (32.0-35.9); MEAN CELL VOLUME 86.2 fl (80-96); MEAN PLT VOLUME 8.1 fl (7.5-11.1); MONO % 7.3 % (3.8-10.2); NEUT % 76.1 % (42.8-82.8); PLATELET COUNT 214 K/MM3 (134-434); RBC 2.41 M/mm3 (4.00-5.60); RDW 16.1 % (11.9-15.9); WHITE BLOOD COUNT 8.3 K/mm3 (4.0-10.0)
[2019-02-07 07:39] LABS: ANION GAP 5 MMOL/L (8-16); BLOOD UREA NITROGEN 54 mg/dL (7-18); CALCIUM 7.9 mg/dL (8.5-10.1); CHLORIDE 106 mmol/L (98-107); CO2 25 mmol/L (21-32); GLUCOSE,RANDOM 169 mg/dL (74-106); POTASSIUM 4.9 mmol/L (3.5-5.1); SODIUM 136 mmol/L (136-145)
[2019-02-07] MEDS: AMINO ACIDS/PROTEIN HYDROLYS 30 ML LIQUID.PKT PO SCH ×2 (08:36→17:47)
[2019-02-07] MEDS: FERROUS SO4 325 MG TABLET (FP) PO SCH (08:36)
[2019-02-07] MEDS: TAMSULOSIN HCL 0.4 MG CAP PO SCH (08:36)
[2019-02-07] MEDS ORDERED: PT OWN MED DRAWER 7, Y5N ONE ×2 (09:38→21:29)
[2019-02-07] MEDS: FOLIC ACID 1 MG TABLET (FP) PO SCH (10:24)
[2019-02-07] MEDS: LACTOBACILLUS ACIDOPHILUS 1 TABLET PO SCH (10:24)
[2019-02-07] MEDS: RANITIDINE HCL 150 MG TABLET (FP) PO SCH ×2 (10:24→22:50)
[2019-02-07] MEDS: FINASTERIDE 5 MG TABLET (FP) PO SCH (10:24)
[2019-02-07] MEDS: HEPARIN NA (PORCINE) 5,000 UNITS/ML 1ML VIAL SQ SCH ×2 (10:24→22:50)
[2019-02-07] MEDS: ASPIRIN 81 MG CHEWABLE TABLETS PO SCH (10:24)
[2019-02-07] MEDS: MEROPENEM 1 GM in DEXTROSE 5%-WATER 100 ML IVPB SCH ×2 (10:25→22:50)
--- NOTE | 2019-02-07 12:00 | PN ---
Physical Exam: SUBJECTIVE: Patient seen and examined, left leg pain better, no new complaints. OBJECTIVE: Vital Signs Period Temp Pulse Resp BP Sys/Cano Pulse Ox Last 24 Hr 98.5 F-99.3 F 76-82 18-18 108-118/54-64 99 Intake & Output 02/04/19 02/05/19 02/06/19 02/07/19 23:59 23:59 23:59 23:59 Intake Total 700 2300 340 Output Total 800 200 500 Balance -100 2100 -160 Weight 249 lb 3.2 oz 253 lb 4 oz 247 lb 1.6 oz 248 lb 9.6 oz GENERAL: The patient is awake, alert, and fully oriented, in no acute distress. HEAD: Normal with no signs of trauma. EYES: PERRL, extraocular movements intact, sclera anicteric, conjunctiva clear. No ptosis. ENT: Ears normal, nares patent, oropharynx clear without exudates, moist mucous membranes. NECK: Trachea midline, full range of motion, supple. LUNGS: Breath sounds equal, clear to auscultation bilaterally, no wheezes, no crackles, no accessory muscle use. HEART: Regular rate and rhythm, S1, S2 ABDOMEN: Soft, nontender, nondistended, normoactive bowel sounds, no guarding, no rebound EXTREMITIES: left leg dressing, mild blood soaked, left foot edema improved, tender on exam, further exam deferred PSYCH: Normal mood, normal affect. SKIN: Warm, dry, normal turgor, no rashes or lesions noted Laboratory Results - last 24 hr 02/06/19 02/06/19 02/06/19 11:59 16:08 22:05 WBC RBC Hgb Hct MCV MCH MCHC RDW Plt Count MPV Absolute Neuts (auto) Neutrophils % Lymphocytes % Monocytes % Eosinophils % Basophils % Nucleated RBC % Sodium Potassium Chloride Carbon Dioxide Anion Gap BUN Creatinine Creat Clearance w eGFR POC Glucometer 225 248 202 Random Glucose Calcium Blood Type Antibody Screen Crossmatch 02/07/19 02/07/19 02/07/19 06:00 06:00 06:16 WBC 8.3 RBC 2.41 L Hgb 7.2 L Hct 20.7 L D MCV 86.2 MCH 29.8 MCHC 34.5 RDW 16.1 H Plt Count 214 D MPV 8.1 Absolute Neuts (auto) 6.3 Neutrophils % 76.1 Lymphocytes % 14.5 D Monocytes % 7.3 Eosinophils % 1.7 Basophils % 0.4 Nucleated RBC % 0 Sodium 136 Potassium 4.9 Chloride 106 Carbon Dioxide 25 Anion Gap 5 L BUN 54 H Creatinine 2.0 H Creat Clearance w eGFR 34.14 POC Glucometer 146 Random Glucose 169 H Calcium 7.9 L Blood Type Antibody Screen Crossmatch 02/07/19 08:35 WBC RBC Hgb Hct MCV MCH MCHC RDW Plt Count MPV Absolute Neuts (auto) Neutrophils % Lymphocytes % Monocytes % Eosinophils % Basophils % Nucleated RBC % Sodium Potassium Chloride Carbon Dioxide Anion Gap BUN Creatinine Creat Clearance w eGFR POC Glucometer Random Glucose Calcium Blood Type AB POSITIVE Antibody Screen Negative Crossmatch See Detail Active Medications Generic Name Dose Route Start Last Admin Trade Name Freq PRN Reason Stop Dose Admin Acetaminophen 650 mg 02/05/19 22:05 Tylenol - PO Q6H PRN PAIN LEVEL 4-10 OR FEVER Amino Acids 30 ml 02/06/19 08:00 02/07/19 08:36 Prosource No Carb Liquid Pkt PO 30 ml BID@0800,1730 [facility] Administration Aspirin 81 mg 02/06/19 10:00 02/07/19 10:24 Asa - PO 81 mg DAILY [facility] Administration Atorvastatin Calcium 20 mg 02/05/19 22:00 02/06/19 22:06 Lipitor - PO 20 mg HS [facility] Administration Clopidogrel Bisulfate 75 mg 02/06/19 07:00 02/07/19 06:18 Plavix - PO 75 mg AM [facility] Administration Ferrous Sulfate 325 mg 02/06/19 08:00 02/07/19 08:36 Feosol - PO 325 mg DAILY@0800 [facility] Administration Finasteride 5 mg 02/06/19 10:00 02/07/19 10:24 Proscar - PO 5 mg DAILY [facility] Administration Folic Acid 1 mg 02/06/19 10:00 02/07/19 10:24 Folic Acid - PO 1 mg DAILY [facility] Administration Heparin Sodium (Porcine) 5,000 unit 02/05/19 22:00 02/07/19 10:24 Heparin - SQ 5,000 unit BID [facility] Administration IV Flush 4 ml 02/05/19 21:54 Triple Lumen Flush IVPUSH PRN PRN Protocol IV Flush 4 ml 02/05/19 21:54 Triple Lumen Flush IVPUSH PRN PRN Protocol Meropenem 1 gm/ Dextrose 100 mls @ 200 mls/hr 02/05/19 22:30 02/07/19 10:25 IVPB 200 mls/hr BID [facility] Administration Vancomycin HCl 1,000 mg in 250 mls @ 200 mls/hr 02/06/19 12:30 02/06/19 12:11 Vancomycin (Pre-Docked) IVPB 200 mls/hr Q24H [facility] Administration Protocol Sodium Chloride 1,000 mls @ 75 mls/hr 02/07/19 12:00 Normal Saline - IV ASDIR [facility] Insulin Aspart 1 vial 02/05/19 22:00 02/07/19 06:17 Novolog Vial Sliding Scale - SQ Not Given ACHS [facility] Protocol Insulin Detemir 25 units 02/07/19 22:00 Levemir Vial SQ BID [facility] Lactobacillus Acidophilus 1 tab 02/06/19 10:00 02/07/19 10:24 Bacid - PO 1 tab DAILY [facility] Administration Metoprolol Succinate 50 mg 02/06/19 07:00 02/07/19 06:18 Toprol Xl - PO 50 mg AM [facility] Administration Nystatin 500,000 units 02/06/19 00:00 02/07/19 06:17 Nystatin Oral Suspension - PO Not Given Q6HPO [facility] Ondansetron HCl 4 mg 02/05/19 21:54 02/07/19 01:46 Zofran Injection IVPUSH 4 mg Q6H PRN Administration NAUSEA AND/OR VOMITING Oxycodone HCl 5 mg 02/05/19 21:54 02/06/19 16:23 Roxicodone - PO 5 mg Q6H PRN Administration Pain Level 7 - 10 BREAKTHROUGH Promethazine HCl 12.5 mg 02/05/19 21:54 Phenergan Injection - IVPB Q6H PRN NAUSEA AND/OR VOMITING Ranitidine HCl 150 mg 02/05/19 22:00 02/07/19 10:24 Zantac - PO 150 mg BID [facility] Administration Tamsulosin HCl 0.4 mg 02/06/19 08:30 02/07/19 08:36 Flomax - PO 0.4 mg DAILY@0830 [facility] Administration Microbiology 02/04/19 10:30 Blood - Central Line Blood Culture - Preliminary NO GROWTH OBTAINED AFTER 72 HOURS, INCUBATION TO CONTINUE FOR 2 DAYS. 02/04/19 10:45 Blood - Peripheral Venous Blood Culture - Preliminary NO GROWTH OBTAINED AFTER 72 HOURS, INCUBATION TO CONTINUE FOR 2 DAYS. 02/05/19 19:56 Leg - Left Lower Gram Stain - Final 02/05/19 19:56 Leg - Left Lower Wound Culture - Preliminary NO GROWTH OBTAINED AFTER 24 HOURS INCUBATION, REINCUBATED. 01/26/19 18:00 Blood - Peripheral Venous Blood Culture - Final NO GROWTH AFTER 5 DAYS INCUBATION 01/26/19 18:00 Blood - Peripheral Venous Blood Culture - Final NO GROWTH AFTER 5 DAYS INCUBATION 01/29/19 10:50 Wound-Other Gram Stain - Final 01/29/19 10:50 Wound-Other Wound Culture - Final NO GROWTH AFTER 48 HOURS INCUBATION 01/27/19 07:10 Urine - Urine Clean Catch Urine Culture - Final NO GROWTH OBTAINED 01/22/19 06:30 Blood - Peripheral Venous Blood Culture - Final NO GROWTH AFTER 5 DAYS INCUBATION 01/22/19 06:30 Blood - Peripheral Venous Blood Culture - Final NO GROWTH AFTER 5 DAYS INCUBATION 01/23/19 20:30 Stool Clostridium difficile Antigen (AMBER) - Final 01/23/19 20:30 Stool Clostridium difficile Toxin Assay - Final 01/17/19 14:58 Blood - Peripheral Venous Blood Culture - Final NO GROWTH AFTER 5 DAYS INCUBATION 01/17/19 13:50 Blood - Peripheral Venous Blood Culture - Final NO GROWTH AFTER 5 DAYS INCUBATION 01/18/19 12:00 Calf - Left Posterior Gram Stain - Final 01/18/19 12:00 Calf - Left Posterior Wound Culture - Final Mr Shannon Aureus 01/17/19 13:35 Urine - Urine Lee Urine Culture - Final NO GROWTH OBTAINED ASSESSMENT/PLAN: 59 yom with PMHx of IDDM, HTN, HLD, PAD, CAD s/p PCI, CKD, admitted with LLE pain, AMADOU. -LLE loculated/complicated abscess s/p I&D 02/05/2019 -AMADOU, suspect from infection/urinary retention, recurrent AMADOU, from blood loss/ fluid shift OR+/- unreliable PO intake, r/o retention -IDDM -HTN -Acute on chronic anemia, suspect multifactorial from iron deficiency, renal dysfunction s/p 3 units PRBC, now rescurrently likely from blood loss LLE -HLD -PAD -CAD s/p PCI Plan: Surgery input noted. S/p I&D extensive wound cavity infection and purulent bloody drainage. Follow up wound cultures. Wound care per surgery. Meropenem/vancomycin. Vanco levels today. Follow up ID input. Blood cx from central/peripheral line neg so far. Discuss with IR for central line change tomorrow Cr rising today, start gentle hydration. transfuse 1 unit PRBC. Bladder scan x 1 (discussed with Nursing). Arterial duplex noted, discussed with Dr. Zamarripa, no active intervention. Continue ASA/Plavix with close h/h monitoring. Continue flomax. renal/bladder US noted. s/p 3 units PRBC, transfuse 1 unit PRBC, monitor h/h Increase Levemir to 25 units BID. ISS, diabetic diet. Heparin subq BID with close monitoring of h/h. Dispo pending clinical improvement Plan discussed with patient and nursing in detail, all questions answered. Visit type - Emergency Visit Emergency Visit: Yes ED Registration Date: 01/13/19 Care time: The patient presented to the Emergency Department on the above date and was hospitalized for further evaluation of their emergent condition. - New Patient This patient is new to me today: No - Critical Care Critical Care patient: No - Discharge Referral Referred to [facility] No
[2019-02-07] MEDS: SODIUM CHLORIDE 1,000 ML IV SCH (12:33)
[2019-02-07] MEDS: VANCOMYCIN 1 GRAM (PRE-DOCKED) 1,000 MG/250 ML BAG IVPB SCH (13:35)
--- NOTE | 2019-02-07 13:42 | PN ---
Progress Note, Physician History of Present Illness: Pt states he feels well. Less pain in Lt leg. Increase in creatinine noted. Vancomycin level checked. - Current Medication List Current Medications: Active Medications Acetaminophen (Tylenol -) 650 mg PO Q6H PRN PRN Reason: PAIN LEVEL 4-10 OR FEVER Amino Acids (Prosource No Carb Liquid Pkt) 30 ml PO BID@0800,1730 [facility] Last Admin: 02/07/19 08:36 Dose: 30 ml Aspirin (Asa -) 81 mg PO DAILY [facility] Last Admin: 02/07/19 10:24 Dose: 81 mg Atorvastatin Calcium (Lipitor -) 20 mg PO HS [facility] Last Admin: 02/06/19 22:06 Dose: 20 mg Clopidogrel Bisulfate (Plavix -) 75 mg PO AM [facility] Last Admin: 02/07/19 06:18 Dose: 75 mg Ferrous Sulfate (Feosol -) 325 mg PO DAILY@0800 [facility] Last Admin: 02/07/19 08:36 Dose: 325 mg Finasteride (Proscar -) 5 mg PO DAILY [facility] Last Admin: 02/07/19 10:24 Dose: 5 mg Folic Acid (Folic Acid -) 1 mg PO DAILY [facility] Last Admin: 02/07/19 10:24 Dose: 1 mg Heparin Sodium (Porcine) (Heparin -) 5,000 unit SQ BID [facility] Last Admin: 02/07/19 10:24 Dose: 5,000 unit IV Flush (Triple Lumen Flush) 4 ml IVPUSH PRN PRN PRN Reason: Protocol IV Flush (Triple Lumen Flush) 4 ml IVPUSH PRN PRN PRN Reason: Protocol Meropenem 1 gm/ Dextrose 100 mls @ 200 mls/hr IVPB BID [facility] Last Admin: 02/07/19 10:25 Dose: 200 mls/hr Sodium Chloride (Normal Saline -) 1,000 mls @ 75 mls/hr IV ASDIR [facility] Last Admin: 02/07/19 12:33 Dose: 75 mls/hr Vancomycin HCl 750 mg/ (Dextrose) 150 mls @ 150 mls/hr IVPB Q24H [facility]; Protocol Insulin Aspart (Novolog Vial Sliding Scale -) 1 vial SQ ACHS [facility]; Protocol Last Admin: 02/07/19 12:33 Dose: 4 unit Insulin Detemir (Levemir Vial) 25 units SQ BID@0700,2200 [facility] Lactobacillus Acidophilus (Bacid -) 1 tab PO DAILY [facility] Last Admin: 02/07/19 10:24 Dose: 1 tab Metoprolol Succinate (Toprol Xl -) 50 mg PO AM [facility] Last Admin: 02/07/19 06:18 Dose: 50 mg Nystatin (Nystatin Oral Suspension -) 500,000 units PO Q6HPO [facility] Last Admin: 02/07/19 12:33 Dose: 500,000 units Ondansetron HCl (Zofran Injection) 4 mg IVPUSH Q6H PRN PRN Reason: NAUSEA AND/OR VOMITING Last Admin: 02/07/19 01:46 Dose: 4 mg Oxycodone HCl (Roxicodone -) 5 mg PO Q6H PRN PRN Reason: Pain Level 7 - 10 BREAKTHROUGH Last Admin: 02/06/19 16:23 Dose: 5 mg Promethazine HCl (Phenergan Injection -) 12.5 mg IVPB Q6H PRN PRN Reason: NAUSEA AND/OR VOMITING Ranitidine HCl (Zantac -) 150 mg PO BID [facility] Last Admin: 02/07/19 10:24 Dose: 150 mg Tamsulosin HCl (Flomax -) 0.4 mg PO DAILY@0830 [facility] Last Admin: 02/07/19 08:36 Dose: 0.4 mg - Objective Vital Signs: Vital Signs Temperature 99.3 F 02/07/19 05:00 Pulse Rate 82 02/07/19 05:00 Respiratory Rate 18 02/07/19 05:00 Blood Pressure 116/64 02/07/19 05:00 O2 Sat by Pulse Oximetry (%) 99 02/06/19 21:00 Constitutional: Yes: No Distress, Calm Cardiovascular: Yes: Regular Rate and Rhythm Respiratory: Yes: Regular Gastrointestinal: Yes: Normal Bowel Sounds, Soft Wound/Incision: Yes: Other (Lt leg extensive wound with packing, sanguinous drainage on dressing, less Leg edema/tenderness) Neurological: Yes: Alert Labs: CBC, BMP 02/07/19 06:00 02/07/19 06:00 INR, PTT INR 1.19 (0.83-1.09) H 01/28/19 09:20 Vancomycin trough - 18 Wound cultures - no growth in 24hrs Problem List - Problems (1) AMADOU (acute kidney injury) Code(s): N17.9 - ACUTE KIDNEY FAILURE, UNSPECIFIED (2) CHF (congestive heart failure) Code(s): I50.9 - HEART FAILURE, UNSPECIFIED Qualifiers: Heart failure type: unspecified Heart failure chronicity: chronic Qualified Code(s): I50.9 - Heart failure, unspecified (3) CKD (chronic kidney disease) Code(s): N18.9 - CHRONIC KIDNEY DISEASE, UNSPECIFIED Qualifiers: Chronic kidney disease stage: stage 3 (moderate) Qualified Code(s): N18.3 - Chronic kidney disease, stage 3 (moderate) (4) Cellulitis of left lower extremity Code(s): L03.116 - CELLULITIS OF LEFT LOWER LIMB (5) HTN (hypertension) Code(s): I10 - ESSENTIAL (PRIMARY) HYPERTENSION Qualifiers: Hypertension type: essential hypertension Qualified Code(s): I10 - Essential (primary) hypertension (6) T2DM (type 2 diabetes mellitus) Code(s): E11.9 - TYPE 2 DIABETES MELLITUS WITHOUT COMPLICATIONS Qualifiers: Diabetes mellitus moth exterminator insulin use: with fci use Diabetes mellitus complication status: with kidney complications Diabetes mellitus complication detail: with chronic kidney disease Chronic kidney disease stage : stage 3 (moderate) Qualified Code(s): E11.22 - Type 2 diabetes mellitus with diabetic chronic kidney disease; N18.3 - Chronic kidney disease, stage 3 ( moderate); Z79.4 - group home (current) use of insulin Assessment/Plan Extensive LLE Cellulitis/ Abscess s/p I+D s/p Sepsis AMADOU on CKD Fever resolved -- creatinine elevated today -- Vancomycin level noted. Will hold today's dose, plan on restart tomorrow at 750 mg IV daily if creatinine stable and follow up levels -- repeat bmp in a.m. -- continue antibiotics -- wound care/dressing changes
[2019-02-07] MEDS: oxyCODONE HCL 5 MG TABLET PO PRN (13:59)
--- NOTE | 2019-02-07 15:38 | PN ---
Progress Note, Physician History of Present Illness: Patient with 3 wks LLE swelling throughout, fevers, wbc and progressive CT changes suggestive of developing infection in tissue planes, with identification of purulence draining from fluctuant areas ultimately requiring OR I&D. Large area of purulence evacuated from planes of upper posterior calf with extensions into deeper tissues at and above popliteal fossa, and four openings left for drainage with Amanda drains to maintain tracts and packing of all reachable spaces with one continuous betadine-saline Kerlix gauze. Antibiotics per ID continue. Pt receiving blood transfusion for Hb 7.2 today. Pt seen and examined in bed, with minimal pain. Dressing has been reinforced but has pink/brown drainage soaking through posteriorly. Intraoperative culture with no growth thus far, but had been on abx for a long time prior. Dressing removed and changed with nurse. - Current Medication List Current Medications: Active Medications Acetaminophen (Tylenol -) 650 mg PO Q6H PRN PRN Reason: PAIN LEVEL 4-10 OR FEVER Amino Acids (Prosource No Carb Liquid Pkt) 30 ml PO BID@0800,1730 [facility] Last Admin: 02/07/19 08:36 Dose: 30 ml Aspirin (Asa -) 81 mg PO DAILY [facility] Last Admin: 02/07/19 10:24 Dose: 81 mg Atorvastatin Calcium (Lipitor -) 20 mg PO HS [facility] Last Admin: 02/06/19 22:06 Dose: 20 mg Clopidogrel Bisulfate (Plavix -) 75 mg PO AM [facility] Last Admin: 02/07/19 06:18 Dose: 75 mg Ferrous Sulfate (Feosol -) 325 mg PO DAILY@0800 [facility] Last Admin: 02/07/19 08:36 Dose: 325 mg Finasteride (Proscar -) 5 mg PO DAILY [facility] Last Admin: 02/07/19 10:24 Dose: 5 mg Folic Acid (Folic Acid -) 1 mg PO DAILY [facility] Last Admin: 02/07/19 10:24 Dose: 1 mg Heparin Sodium (Porcine) (Heparin -) 5,000 unit SQ BID [facility] Last Admin: 02/07/19 10:24 Dose: 5,000 unit IV Flush (Triple Lumen Flush) 4 ml IVPUSH PRN PRN PRN Reason: Protocol IV Flush (Triple Lumen Flush) 4 ml IVPUSH PRN PRN PRN Reason: Protocol Meropenem 1 gm/ Dextrose 100 mls @ 200 mls/hr IVPB BID [facility] Last Admin: 02/07/19 10:25 Dose: 200 mls/hr Sodium Chloride (Normal Saline -) 1,000 mls @ 75 mls/hr IV ASDIR [facility] Last Admin: 02/07/19 12:33 Dose: 75 mls/hr Vancomycin HCl 750 mg/ (Dextrose) 250 mls @ 150 mls/hr IVPB DAILY@1300 [facility]; Protocol Insulin Aspart (Novolog Vial Sliding Scale -) 1 vial SQ ACHS [facility]; Protocol Last Admin: 02/07/19 12:33 Dose: 4 unit Insulin Detemir (Levemir Vial) 25 units SQ BID@0700,2200 [facility] Lactobacillus Acidophilus (Bacid -) 1 tab PO DAILY [facility] Last Admin: 02/07/19 10:24 Dose: 1 tab Metoprolol Succinate (Toprol Xl -) 50 mg PO AM [facility] Last Admin: 02/07/19 06:18 Dose: 50 mg Nystatin (Nystatin Oral Suspension -) 500,000 units PO Q6HPO [facility] Last Admin: 02/07/19 12:33 Dose: 500,000 units Ondansetron HCl (Zofran Injection) 4 mg IVPUSH Q6H PRN PRN Reason: NAUSEA AND/OR VOMITING Last Admin: 02/07/19 01:46 Dose: 4 mg Oxycodone HCl (Roxicodone -) 5 mg PO Q6H PRN PRN Reason: Pain Level 7 - 10 BRE[facility]THROUGH Last Admin: 02/07/19 13:59 Dose: 5 mg Promethazine HCl (Phenergan Injection -) 12.5 mg IVPB Q6H PRN PRN Reason: NAUSEA AND/OR VOMITING Ranitidine HCl (Zantac -) 150 mg PO BID [facility] Last Admin: 02/07/19 10:24 Dose: 150 mg Tamsulosin HCl (Flomax -) 0.4 mg PO DAILY@0830 [facility] Last Admin: 02/07/19 08:36 Dose: 0.4 mg - Objective Vital Signs: Vital Signs Temperature 98.4 F 02/07/19 14:49 Pulse Rate 85 02/07/19 14:49 Respiratory Rate 18 02/07/19 14:49 Blood Pressure 118/54 L 02/07/19 14:49 O2 Sat by Pulse Oximetry (%) 99 02/06/19 21:00 no recurring fevers Constitutional: Yes: Well Nourished, No Distress, Calm Eyes: Yes: Conjunctiva Clear, EOM Intact HENT: Yes: Atraumatic, Normocephalic Extremities: No: Cool, Cyanosis Edema: Yes Edema: LLE: 1+ (decreased overall) Integumentary: Yes: Incision (x4 with [place] drains x3, dressed), Other (some residual flaking skin at lower left leg). No: Erythema (not appreciable), Jaundice, Rash Wound/Incision: Yes: Dressing Removed (and Kerlix gauze packing removed from all internal spaces with minimal discomfort), Draining (serous, slightly pink, no bleeding or seamus purulence, no prominent odor), Unapproximated (tissue planes open internally, Amanda drains intact through counterincisions), Other ( not repacked - dressed with gauze and ABD pads over openings, Kerlix wrap x3 to hold in place). No: Dressing Dry and Intact (intact but draining through posteriorly) Neurological: Yes: Alert, Oriented Labs: CBC, BMP 02/07/19 06:00 02/07/19 06:00 wbc normal BUN/Cr up a bit, could reflect hypovolemia receiving PRBC transfusion now Problem List - Problems (1) Abscess of left lower leg Assessment/Plan: POD2 s/p complicated/multiple I&D of left lower leg abscess continue antibiotics per ID packing removed and outer dressing changed with nurse continue daily AND PRN changes of outer dressing over Amanda drains to manage drainage from open areas nursing may remove and replace outer dressings PRN (order left) when ok with medical team and nursing, patient could shower with dressings off if desired pain meds prn, nonnarcotics first line will follow for improvement recommend vascular evaluation as well, possibly have Dr. Martinez see to consider whether hyperbaric therapy might have any role in healing? if pt appears to need any further or more extensive intervention in deeper tissues of leg/knee, would defer to vascular or ortho for more invasive exploration SW/CM will need to arrange daily AND PRN wound care with outer dressings (gauze , ABD pads, Kerlix wrapping) but no actual packing of wounds, after discharge can be [facility] in future discussed with Dr. Montoya of ID and Dr. Petersen of primary team Code(s): L02.416 - CUTANEOUS ABSCESS OF LEFT LOWER LIMB (2) Pain and swelling of left lower leg Assessment/Plan: improving Code(s): M79.662 - PAIN IN LEFT LOWER LEG; M79.89 - OTHER SPECIFIED SOFT TISSUE DISORDERS (3) Infection with methicillin-resistant Staphylococcus aureus (MRSA) Code(s): A49.02 - METHICILLIN RESIS STAPH INFECTION, UNSP SITE (4) Fever Assessment/Plan: not since surgery Code(s): R50.9 - FEVER, UNSPECIFIED Qualifiers: Fever type: due to other condition Qualified Code(s): R50.81 - Fever presenting with conditions classified elsewhere (5) Anemia Assessment/Plan: transfusion in process Code(s): D64.9 - ANEMIA, UNSPECIFIED Qualifiers: Anemia type: due to chronic kidney disease Chronic kidney disease stage: stage 3 (moderate) Qualified Code(s): N18.3 - Chronic kidney disease, stage 3 (moderate); D63.1 - Anemia in chronic kidney disease (6) HTN (hypertension) Code(s): I10 - ESSENTIAL (PRIMARY) HYPERTENSION Qualifiers: Hypertension type: essential hypertension Qualified Code(s): I10 - Essential (primary) hypertension (7) T2DM (type 2 diabetes mellitus) Code(s): E11.9 - TYPE 2 DIABETES MELLITUS WITHOUT COMPLICATIONS Qualifiers: Diabetes mellitus assisted insulin use: with long line teamster use Diabetes mellitus complication status: with kidney complications Diabetes mellitus complication detail: with chronic kidney disease Chronic kidney disease stage : stage 3 (moderate) Qualified Code(s): E11.22 - Type 2 diabetes mellitus with diabetic chronic kidney disease; N18.3 - Chronic kidney disease, stage 3 ( moderate); 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
--- NOTE | 2019-02-07 21:03 | PN ---
Progress Note (short form) - Note Progress Note: problems 1. AMADOU 2. lower ext edema 3. leg pain 4. HTN 5. DM 6. CKD Current Medications Acetaminophen (Tylenol -) 650 mg PO Q6H PRN PRN Reason: PAIN LEVEL 4-10 OR FEVER Amino Acids (Prosource No Carb Liquid Pkt) 30 ml PO BID@0800,1730 [facility] Last Admin: 02/07/19 17:47 Dose: 30 ml Aspirin (Asa -) 81 mg PO DAILY [facility] Last Admin: 02/07/19 10:24 Dose: 81 mg Atorvastatin Calcium (Lipitor -) 20 mg PO HS [facility] Last Admin: 02/06/19 22:06 Dose: 20 mg Clopidogrel Bisulfate (Plavix -) 75 mg PO AM [facility] Last Admin: 02/07/19 06:18 Dose: 75 mg Ferrous Sulfate (Feosol -) 325 mg PO DAILY@0800 [facility] Last Admin: 02/07/19 08:36 Dose: 325 mg Finasteride (Proscar -) 5 mg PO DAILY [facility] Last Admin: 02/07/19 10:24 Dose: 5 mg Folic Acid (Folic Acid -) 1 mg PO DAILY [facility] Last Admin: 02/07/19 10:24 Dose: 1 mg Heparin Sodium (Porcine) (Heparin -) 5,000 unit SQ BID [facility] Last Admin: 02/07/19 10:24 Dose: 5,000 unit IV Flush (Triple Lumen Flush) 4 ml IVPUSH PRN PRN PRN Reason: Protocol IV Flush (Triple Lumen Flush) 4 ml IVPUSH PRN PRN PRN Reason: Protocol Meropenem 1 gm/ Dextrose 100 mls @ 200 mls/hr IVPB BID [facility] Last Admin: 02/07/19 10:25 Dose: 200 mls/hr Sodium Chloride (Normal Saline -) 1,000 mls @ 75 mls/hr IV ASDIR [facility] Last Admin: 02/07/19 12:33 Dose: 75 mls/hr Vancomycin HCl 750 mg/ (Dextrose) 250 mls @ 150 mls/hr IVPB DAILY@1300 [facility]; Protocol Insulin Aspart (Novolog Vial Sliding Scale -) 1 vial SQ ACHS [facility]; Protocol Last Admin: 02/07/19 17:48 Dose: 2 unit Insulin Detemir (Levemir Vial) 25 units SQ BID@0700,2200 [facility] Lactobacillus Acidophilus (Bacid -) 1 tab PO DAILY [facility] Last Admin: 02/07/19 10:24 Dose: 1 tab Metoprolol Succinate (Toprol Xl -) 50 mg PO AM [facility] Last Admin: 02/07/19 06:18 Dose: 50 mg Nystatin (Nystatin Oral Suspension -) 500,000 units PO Q6HPO [facility] Last Admin: 02/07/19 17:48 Dose: 500,000 units Ondansetron HCl (Zofran Injection) 4 mg IVPUSH Q6H PRN PRN Reason: NAUSEA AND/OR VOMITING Last Admin: 02/07/19 01:46 Dose: 4 mg Oxycodone HCl (Roxicodone -) 5 mg PO Q6H PRN PRN Reason: Pain Level 7 - 10 BREAKTHROUGH Last Admin: 02/07/19 13:59 Dose: 5 mg Promethazine HCl (Phenergan Injection -) 12.5 mg IVPB Q6H PRN PRN Reason: NAUSEA AND/OR VOMITING Ranitidine HCl (Zantac -) 150 mg PO BID [facility] Last Admin: 02/07/19 10:24 Dose: 150 mg Tamsulosin HCl (Flomax -) 0.4 mg PO DAILY@0830 [facility] Last Admin: 02/07/19 08:36 Dose: 0.4 mg Last Vital Signs Temp Pulse Resp BP Pulse Ox 98.9 F 83 18 123/64 99 02/07/19 19:06 02/07/19 19:06 02/07/19 19:06 02/07/19 19:06 02/07/19 09:00 lungs clear heart reg abd soft non tender ext no edema CBC, BMP 02/07/19 06:00 02/07/19 06:00 CBC, BMP 02/04/19 10:30 02/05/19 06:00 IMP- s/p amadou underlying ckd DM Anemia Plan continue to monitor renal function ensure hydration agree with blood transfusion
[2019-02-07] MEDS: ATORVASTATIN CA 20 MG TABLET (FP) PO SCH (22:50)
[2019-02-08] MEDS: SODIUM CHLORIDE 1,000 ML IV SCH ×2 (06:13→17:21)
[2019-02-08] MEDS: CLOPIDOGREL BISULFATE 75 MG TABLET (FP) PO SCH (06:23)
[2019-02-08] MEDS: INSULIN SLIDING SCALE (NOVOLOG) 1 VIAL SQ SCH ×4 (06:24→21:19)
[2019-02-08] MEDS: INSULIN (LEVEMIR) 100 UNITS/ML UNITS SQ SCH ×2 (06:24→21:19)
[2019-02-08] MEDS: NYSTATIN 500,000 UNITS/5 ML SUSPENSION PO SCH ×4 (06:28→23:59)
[2019-02-08 07:49] LABS: BASO % 0.8 % (0-2.0); EOS % 3.4 % (0-4.5); HEMATOCRIT 22.7 % (35.4-49); LYMPH % 20.6 % (8-40); MCH 30.3 pg (25.7-33.7); MCHC 35.2 g/dl (32.0-35.9); MEAN CELL VOLUME 86.1 fl (80-96); MEAN PLT VOLUME 8.2 fl (7.5-11.1); MONO % 10.6 % (3.8-10.2); NEUT % 64.6 % (42.8-82.8); PLATELET COUNT 218 K/MM3 (134-434); RBC 2.63 M/mm3 (4.00-5.60); RDW 15.8 % (11.9-15.9); WHITE BLOOD COUNT 6.3 K/mm3 (4.0-10.0)
[2019-02-08 08:20] LABS: ALBUMIN 1.7 g/dl (3.4-5.0); ALK PHOS 91 U/L (45-117); ANION GAP 5 MMOL/L (8-16); BILIRUBIN,TOTAL 0.6 mg/dL (0.2-1); BLOOD UREA NITROGEN 50 mg/dL (7-18); CALCIUM 7.9 mg/dL (8.5-10.1); CHLORIDE 111 mmol/L (98-107); CO2 25 mmol/L (21-32); CREATININE 1.8 mg/dL (0.55-1.3); GLUCOSE,RANDOM 125 mg/dL (74-106); MAGNESIUM 2.3 mg/dL (1.8-2.4); PHOSPHOROUS 3.8 mg/dL (2.5-4.9); POTASSIUM 4.4 mmol/L (3.5-5.1); SGOT/AST 13 U/L (15-37); SGPT/ALT 10 U/L (13-61); SODIUM 141 mmol/L (136-145); TOT PROT 6.2 g/dl (6.4-8.2)
[2019-02-08] MEDS ORDERED: PT OWN MED DRAWER 7, Y5N ONE ×3 (09:18→20:13)
[2019-02-08] MEDS: FOLIC ACID 1 MG TABLET (FP) PO SCH (09:21)
[2019-02-08] MEDS: FINASTERIDE 5 MG TABLET (FP) PO SCH (09:21)
[2019-02-08] MEDS: LACTOBACILLUS ACIDOPHILUS 1 TABLET PO SCH (09:21)
[2019-02-08] MEDS: ASPIRIN 81 MG CHEWABLE TABLETS PO SCH (09:21)
[2019-02-08] MEDS: TAMSULOSIN HCL 0.4 MG CAP PO SCH (09:21)
[2019-02-08] MEDS: RANITIDINE HCL 150 MG TABLET (FP) PO SCH ×2 (09:21→21:19)
[2019-02-08] MEDS: HEPARIN NA (PORCINE) 5,000 UNITS/ML 1ML VIAL SQ SCH ×2 (09:22→21:19)
[2019-02-08] MEDS: FERROUS SO4 325 MG TABLET (FP) PO SCH (09:22)
[2019-02-08] MEDS: AMINO ACIDS/PROTEIN HYDROLYS 30 ML LIQUID.PKT PO SCH ×2 (09:23→17:48)
[2019-02-08] MEDS: MEROPENEM 1 GM in DEXTROSE 5%-WATER 100 ML IVPB SCH ×2 (09:27→21:18)
[2019-02-08] MEDS ORDERED: TRIPLE LUMEN FLUSH 4 ML ML IVPUSH PRN (10:58)
--- NOTE | 2019-02-08 11:00 | PN ---
Teaching Attending Note Name of Resident: Monica Mosley ATTENDING PHYSICIAN STATEMENT I saw and evaluated the patient. I reviewed the resident's note and discussed the case with the resident. I agree with the resident's findings and plan as documented with exceptions below. SUBJECTIVE: Patient seen and examined. Left leg pain improved, no new complaints. OBJECTIVE: Vital Signs Period Temp Pulse Resp BP Sys/Cano Pulse Ox Last 24 Hr 98.4 F-99.3 F 81-85 18-20 118-132/53-84 99 Intake & Output 02/05/19 02/06/19 02/07/19 02/08/19 23:59 23:59 23:59 23:59 Intake Total 2300 440 750 Output Total 200 1380 Balance 2100 -940 750 Weight 253 lb 4 oz 247 lb 1.6 oz 248 lb 9.6 oz 249 lb 6 oz General: sitting in bed in no acute distress Chest: CTAB, no rales or wheezing Abdomen:Soft, obese, NT Extremities: left calf dressing with some sanguinous drainage, softer exam than before, drains felt through the discharge, left foot swelling decreased, improved exam Neck right IJ triple lumen, no active erythema or discharge noted Home Medications Medication Instructions Recorded Aspirin [ASA -] 81 mg PO DAILY 01/13/19 Atorvastatin Ca [Lipitor] 20 mg PO HS 01/13/19 Clopidogrel Bisulfate [Plavix] 75 mg PO AM 01/13/19 Insulin (Novolog 70/30) [Novolog 30 units SQ HS 01/13/19 Mix 70/30 Vial] Insulin (Novolog 70/30) [Novolog 54 units SQ AM 01/13/19 Mix 70/30 Vial] Metoprolol Succinate 50 mg PO AM 01/13/19 Active Medications Acetaminophen (Tylenol -) 650 mg PO Q6H PRN PRN Reason: PAIN LEVEL 4-10 OR FEVER Amino Acids (Prosource No Carb Liquid Pkt) 30 ml PO BID@0800,1730 [facility] Last Admin: 02/08/19 09:23 Dose: 30 ml Aspirin (Asa -) 81 mg PO DAILY [facility] Last Admin: 02/08/19 09:21 Dose: 81 mg Atorvastatin Calcium (Lipitor -) 20 mg PO HS [facility] Last Admin: 02/07/19 22:50 Dose: 20 mg Clopidogrel Bisulfate (Plavix -) 75 mg PO AM [facility] Last Admin: 02/08/19 06:23 Dose: 75 mg Ferrous Sulfate (Feosol -) 325 mg PO DAILY@0800 [facility] Last Admin: 02/08/19 09:22 Dose: 325 mg Finasteride (Proscar -) 5 mg PO DAILY [facility] Last Admin: 02/08/19 09:21 Dose: 5 mg Folic Acid (Folic Acid -) 1 mg PO DAILY [facility] Last Admin: 02/08/19 09:21 Dose: 1 mg Heparin Sodium (Porcine) (Heparin -) 5,000 unit SQ BID [facility] Last Admin: 02/08/19 09:22 Dose: 5,000 unit IV Flush (Triple Lumen Flush) 4 ml IVPUSH PRN PRN PRN Reason: Protocol IV Flush (Triple Lumen Flush) 4 ml IVPUSH PRN PRN PRN Reason: Protocol IV Flush (Triple Lumen Flush) 4 ml IVPUSH PRN PRN PRN Reason: Protocol Meropenem 1 gm/ Dextrose 100 mls @ 200 mls/hr IVPB BID [facility] Last Admin: 02/08/19 09:27 Dose: 200 mls/hr Sodium Chloride (Normal Saline -) 1,000 mls @ 75 mls/hr IV ASDIR [facility] Last Admin: 02/08/19 06:13 Dose: 75 mls/hr Vancomycin HCl 750 mg/ (Dextrose) 250 mls @ 150 mls/hr IVPB DAILY@1300 [facility]; Protocol Insulin Aspart (Novolog Vial Sliding Scale -) 1 vial SQ ACHS [facility]; Protocol Last Admin: 02/08/19 06:24 Dose: Not Given Insulin Detemir (Levemir Vial) 25 units SQ BID@0700,2200 [facility] Last Admin: 02/08/19 06:24 Dose: 25 units Lactobacillus Acidophilus (Bacid -) 1 tab PO DAILY [facility] Last Admin: 02/08/19 09:21 Dose: 1 tab Metoprolol Succinate (Toprol Xl -) 50 mg PO AM [facility] Last Admin: 02/08/19 06:23 Dose: 50 mg Nystatin (Nystatin Oral Suspension -) 500,000 units PO Q6HPO [facility] Last Admin: 02/08/19 06:28 Dose: Not Given Ondansetron HCl (Zofran Injection) 4 mg IVPUSH Q6H PRN PRN Reason: NAUSEA AND/OR VOMITING Last Admin: 02/07/19 01:46 Dose: 4 mg Oxycodone HCl (Roxicodone -) 5 mg PO Q6H PRN PRN Reason: Pain Level 7 - 10 BREAKTHROUGH Last Admin: 02/07/19 13:59 Dose: 5 mg Promethazine HCl (Phenergan Injection -) 12.5 mg IVPB Q6H PRN PRN Reason: NAUSEA AND/OR VOMITING Ranitidine HCl (Zantac -) 150 mg PO BID [facility] Last Admin: 02/08/19 09:21 Dose: 150 mg Tamsulosin HCl (Flomax -) 0.4 mg PO DAILY@0830 [facility] Last Admin: 02/08/19 09:21 Dose: 0.4 mg Laboratory Results - last 24 hr 02/07/19 02/07/19 02/07/19 08:35 12:01 12:35 WBC RBC Hgb Hct MCV MCH MCHC RDW Plt Count MPV Absolute Neuts (auto) Neutrophils % Lymphocytes % Monocytes % Eosinophils % Basophils % Nucleated RBC % Sodium Potassium Chloride Carbon Dioxide Anion Gap BUN Creatinine Creat Clearance w eGFR POC Glucometer 245 Random Glucose Calcium Phosphorus Magnesium Total Bilirubin AST ALT Alkaline Phosphatase Total Protein Albumin Vancomycin Pre-Dose 18.4 Blood Type AB POSITIVE Antibody Screen Negative Crossmatch See Detail 02/07/19 02/07/19 02/08/19 16:49 22:35 06:20 WBC RBC Hgb Hct MCV MCH MCHC RDW Plt Count MPV Absolute Neuts (auto) Neutrophils % Lymphocytes % Monocytes % Eosinophils % Basophils % Nucleated RBC % Sodium Potassium Chloride Carbon Dioxide Anion Gap BUN Creatinine Creat Clearance w eGFR POC Glucometer 182 192 131 Random Glucose Calcium Phosphorus Magnesium Total Bilirubin AST ALT Alkaline Phosphatase Total Protein Albumin Vancomycin Pre-Dose Blood Type Antibody Screen Crossmatch 02/08/19 02/08/19 06:30 06:30 WBC 6.3 RBC 2.63 L Hgb 8.0 L Hct 22.7 L MCV 86.1 MCH 30.3 MCHC 35.2 RDW 15.8 Plt Count 218 MPV 8.2 Absolute Neuts (auto) 4.0 Neutrophils % 64.6 Lymphocytes % 20.6 D Monocytes % 10.6 H Eosinophils % 3.4 D Basophils % 0.8 Nucleated RBC % 0 Sodium 141 Potassium 4.4 Chloride 111 H Carbon Dioxide 25 Anion Gap 5 L BUN 50 H Creatinine 1.8 H Creat Clearance w eGFR 38.55 POC Glucometer Random Glucose 125 H Calcium 7.9 L Phosphorus 3.8 Magnesium 2.3 Total Bilirubin 0.6 AST 13 L ALT 10 L Alkaline Phosphatase 91 Total Protein 6.2 L Albumin 1.7 L Vancomycin Pre-Dose Blood Type Antibody Screen Crossmatch Microbiology 02/05/19 19:56 Leg - Left Lower Gram Stain - Final 02/05/19 19:56 Leg - Left Lower Wound Culture - Preliminary Staphylococcus Latex Coag Pos 02/04/19 10:45 Blood - Peripheral Venous Blood Culture - Preliminary NO GROWTH OBTAINED AFTER 96 HOURS, INCUBATION TO CONTINUE FOR 1 DAYS. 02/04/19 10:30 Blood - Central Line Blood Culture - Preliminary NO GROWTH OBTAINED AFTER 72 HOURS, INCUBATION TO CONTINUE FOR 2 DAYS. 01/26/19 18:00 Blood - Peripheral Venous Blood Culture - Final NO GROWTH AFTER 5 DAYS INCUBATION 01/26/19 18:00 Blood - Peripheral Venous Blood Culture - Final NO GROWTH AFTER 5 DAYS INCUBATION 01/29/19 10:50 Wound-Other Gram Stain - Final 01/29/19 10:50 Wound-Other Wound Culture - Final NO GROWTH AFTER 48 HOURS INCUBATION 01/27/19 07:10 Urine - Urine Clean Catch Urine Culture - Final NO GROWTH OBTAINED 01/22/19 06:30 Blood - Peripheral Venous Blood Culture - Final NO GROWTH AFTER 5 DAYS INCUBATION 01/22/19 06:30 Blood - Peripheral Venous Blood Culture - Final NO GROWTH AFTER 5 DAYS INCUBATION 01/23/19 20:30 Stool Clostridium difficile Antigen (AMBER) - Final 01/23/19 20:30 Stool Clostridium difficile Toxin Assay - Final 01/17/19 14:58 Blood - Peripheral Venous Blood Culture - Final NO GROWTH AFTER 5 DAYS INCUBATION 01/17/19 13:50 Blood - Peripheral Venous Blood Culture - Final NO GROWTH AFTER 5 DAYS INCUBATION 01/18/19 12:00 Calf - Left Posterior Gram Stain - Final 01/18/19 12:00 Calf - Left Posterior Wound Culture - Final Mr S Aureus 01/17/19 13:35 Urine - Urine Lee Urine Culture - Final NO GROWTH OBTAINED ASSESSMENT AND PLAN: 59 yom with PMHx of IDDM, HTN, HLD, PAD, CAD s/p PCI, CKD, admitted with LLE pain, AMADOU. -LLE loculated/complicated abscess s/p I&D 02/05/2019 -AMADOU, suspect from infection/urinary retention, recurrent AMADOU 02/07/2019, from blood loss/fluid shift OR+/- unreliable PO intake, retention ruled out -IDDM -HTN -Acute on chronic anemia, suspect multifactorial from iron deficiency, renal dysfunction and surgical/wound blood loss s/p total 4 units PRBC (last on 02/07) -HLD -PAD -CAD s/p PCI Plan: Wound exam improved, wound/drain care per surgery. Wound cx noted. ID input noted. Fevers resolved, no leucocytosis Meropenem /vanco day 5. vanco dose decreased. Blood cx from central/peripheral line neg so far. Plan for IR guided central line change Cr improved. Continue IVF. No evidence of retention. Continue flomax. renal/ bladder US noted. s/p 4th unit PRBC yesterday, monitor h/h. Arterial duplex noted, discussed with Dr. Zamarripa, no active intervention. Continue ASA/Plavix with close h/h monitoring. Increased Levemir to 25 units BID. ISS, diabetic diet. Heparin subq BID with close monitoring of h/h. Dispo pending clinical improvement, SNF pending surgical/ID input. Plan discussed with patient, nursing and CM in detail, all questions answered.
--- NOTE | 2019-02-08 12:10 | PN ---
Progress Note, Physician History of Present Illness: patient stable leg still oozing dressing present and wet patient afebrile - Current Medication List Current Medications: Active Medications Acetaminophen (Tylenol -) 650 mg PO Q6H PRN PRN Reason: PAIN LEVEL 4-10 OR FEVER Amino Acids (Prosource No Carb Liquid Pkt) 30 ml PO BID@0800,1730 [facility] Last Admin: 02/08/19 09:23 Dose: 30 ml Aspirin (Asa -) 81 mg PO DAILY [facility] Last Admin: 02/08/19 09:21 Dose: 81 mg Atorvastatin Calcium (Lipitor -) 20 mg PO HS [facility] Last Admin: 02/07/19 22:50 Dose: 20 mg Clopidogrel Bisulfate (Plavix -) 75 mg PO AM [facility] Last Admin: 02/08/19 06:23 Dose: 75 mg Ferrous Sulfate (Feosol -) 325 mg PO DAILY@0800 [facility] Last Admin: 02/08/19 09:22 Dose: 325 mg Finasteride (Proscar -) 5 mg PO DAILY [facility] Last Admin: 02/08/19 09:21 Dose: 5 mg Folic Acid (Folic Acid -) 1 mg PO DAILY [facility] Last Admin: 02/08/19 09:21 Dose: 1 mg Heparin Sodium (Porcine) (Heparin -) 5,000 unit SQ BID [facility] Last Admin: 02/08/19 09:22 Dose: 5,000 unit IV Flush (Triple Lumen Flush) 4 ml IVPUSH PRN PRN PRN Reason: Protocol IV Flush (Triple Lumen Flush) 4 ml IVPUSH PRN PRN PRN Reason: Protocol IV Flush (Triple Lumen Flush) 4 ml IVPUSH PRN PRN PRN Reason: Protocol Meropenem 1 gm/ Dextrose 100 mls @ 200 mls/hr IVPB BID [facility] Last Admin: 02/08/19 09:27 Dose: 200 mls/hr Sodium Chloride (Normal Saline -) 1,000 mls @ 75 mls/hr IV ASDIR [facility] Last Admin: 02/08/19 06:13 Dose: 75 mls/hr Insulin Aspart (Novolog Vial Sliding Scale -) 1 vial SQ ACHS [facility]; Protocol Last Admin: 02/08/19 11:20 Dose: 6 unit Insulin Detemir (Levemir Vial) 25 units SQ BID@0700,2200 [facility] Last Admin: 02/08/19 06:24 Dose: 25 units Lactobacillus Acidophilus (Bacid -) 1 tab PO DAILY [facility] Last Admin: 02/08/19 09:21 Dose: 1 tab Metoprolol Succinate (Toprol Xl -) 50 mg PO AM [facility] Last Admin: 02/08/19 06:23 Dose: 50 mg Nystatin (Nystatin Oral Suspension -) 500,000 units PO Q6HPO [facility] Last Admin: 02/08/19 11:30 Dose: Not Given Ondansetron HCl (Zofran Injection) 4 mg IVPUSH Q6H PRN PRN Reason: NAUSEA AND/OR VOMITING Last Admin: 02/07/19 01:46 Dose: 4 mg Oxycodone HCl (Roxicodone -) 5 mg PO Q6H PRN PRN Reason: Pain Level 7 - 10 BREAKTHROUGH Last Admin: 02/07/19 13:59 Dose: 5 mg Promethazine HCl (Phenergan Injection -) 12.5 mg IVPB Q6H PRN PRN Reason: NAUSEA AND/OR VOMITING Ranitidine HCl (Zantac -) 150 mg PO BID [facility] Last Admin: 02/08/19 09:21 Dose: 150 mg Tamsulosin HCl (Flomax -) 0.4 mg PO DAILY@0830 [facility] Last Admin: 02/08/19 09:21 Dose: 0.4 mg - Objective Vital Signs: Vital Signs Temperature 98.5 F 02/08/19 09:54 Pulse Rate 85 02/08/19 09:54 Respiratory Rate 18 02/08/19 09:54 Blood Pressure 118/61 02/08/19 09:54 O2 Sat by Pulse Oximetry (%) 99 02/07/19 21:00 Constitutional: Yes: No Distress, Calm, Obese Cardiovascular: Yes: Regular Rate and Rhythm Respiratory: Yes: Regular, CTA Bilaterally Gastrointestinal: Yes: Normal Bowel Sounds, Soft Musculoskeletal: Yes: WNL Extremities: Yes: Other Wound/Incision: Yes: Draining, Other (dressing wet) Neurological: Yes: Alert, Oriented Psychiatric: Yes: Alert, Oriented Labs: CBC, BMP 02/08/19 06:30 02/08/19 06:30 INR, PTT INR 1.19 (0.83-1.09) H 01/28/19 09:20 Assessment/Plan Problem List - Problems (1) Left leg pain Code(s): M79.605 - PAIN IN LEFT LEG (2) AMADOU (acute kidney injury) Code(s): N17.9 - ACUTE KIDNEY FAILURE, UNSPECIFIED (3) CKD (chronic kidney disease) Code(s): N18.9 - CHRONIC KIDNEY DISEASE, UNSPECIFIED Qualifiers: Chronic kidney disease stage: stage 2 (mild) Qualified Code(s): N18.2 - Chronic kidney disease, stage 2 (mild) (4) HTN (hypertension) Code(s): I10 - ESSENTIAL (PRIMARY) HYPERTENSION Qualifiers: Hypertension type: essential hypertension Qualified Code(s): I10 - Essential (primary) hypertension (5) IDDM (insulin dependent diabetes mellitus) Code(s): E11.9 - TYPE 2 DIABETES MELLITUS WITHOUT COMPLICATIONS; Z79.4 - [facility] (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 OF INSULIN 6 leukocytosis 7 thrush plan will stop vanco rest as per the team
[2019-02-08] MEDS ORDERED: VANCOMYCIN 750 MG in DEXTROSE 5%-WATER - 250 ML IVPB SCH (13:00)
[2019-02-08] MEDS: VANCOMYCIN HCL 1,250 MG in DEXTROSE 5%-WATER - 250 ML IVPB SCH (17:26)
--- NOTE | 2019-02-08 18:28 | PN ---
Physical Exam: SUBJECTIVE: Patient seen and examined no acute events; OBJECTIVE: Vital Signs Period Temp Pulse Resp BP Sys/Cano Pulse Ox Last 24 Hr 98.1 F-99.3 F 80-87 18-20 118-162/53-84 99 GENERAL: The patient is awake, alert, and fully oriented, in no acute distress. LUNGS: Breath sounds equal, clear to auscultation bilaterally, no wheezes, no crackles, no accessory muscle use. HEART: Regular rate and rhythm, S1, S2 without murmur, rub or gallop. ABDOMEN: Soft, nontender, nondistended, normoactive bowel sounds, no guarding, no rebound, no hepatosplenomegaly, no masses. EXTREMITIES: 2+ pulses, warm, well-perfused, LLE with dressing c/d/i Laboratory Results - last 24 hr 02/07/19 02/08/19 02/08/19 22:35 06:20 06:30 WBC 6.3 RBC 2.63 L Hgb 8.0 L Hct 22.7 L MCV 86.1 MCH 30.3 MCHC 35.2 RDW 15.8 Plt Count 218 MPV 8.2 Absolute Neuts (auto) 4.0 Neutrophils % 64.6 Lymphocytes % 20.6 D Monocytes % 10.6 H Eosinophils % 3.4 D Basophils % 0.8 Nucleated RBC % 0 Sodium Potassium Chloride Carbon Dioxide Anion Gap BUN Creatinine Creat Clearance w eGFR POC Glucometer 192 131 Random Glucose Calcium Phosphorus Magnesium Total Bilirubin AST ALT Alkaline Phosphatase Total Protein Albumin 02/08/19 02/08/19 02/08/19 06:30 11:18 17:37 WBC RBC Hgb Hct MCV MCH MCHC RDW Plt Count MPV Absolute Neuts (auto) Neutrophils % Lymphocytes % Monocytes % Eosinophils % Basophils % Nucleated RBC % Sodium 141 Potassium 4.4 Chloride 111 H Carbon Dioxide 25 Anion Gap 5 L BUN 50 H Creatinine 1.8 H Creat Clearance w eGFR 38.55 POC Glucometer 254 163 Random Glucose 125 H Calcium 7.9 L Phosphorus 3.8 Magnesium 2.3 Total Bilirubin 0.6 AST 13 L ALT 10 L Alkaline Phosphatase 91 Total Protein 6.2 L Albumin 1.7 L Active Medications Generic Name Dose Route Start Last Admin Trade Name Freq PRN Reason Stop Dose Admin Acetaminophen 650 mg 02/05/19 22:05 Tylenol - PO Q6H PRN PAIN LEVEL 4-10 OR FEVER Amino Acids 30 ml 02/06/19 08:00 02/08/19 17:48 Prosource No Carb Liquid Pkt PO Not Given BID@0800,1730 [facility] Aspirin 81 mg 02/06/19 10:00 02/08/19 09:21 Asa - PO 81 mg DAILY [facility] Administration Atorvastatin Calcium 20 mg 02/05/19 22:00 02/07/19 22:50 Lipitor - PO 20 mg HS [facility] Administration Clopidogrel Bisulfate 75 mg 02/06/19 07:00 02/08/19 06:23 Plavix - PO 75 mg AM [facility] Administration Ferrous Sulfate 325 mg 02/06/19 08:00 02/08/19 09:22 Feosol - PO 325 mg DAILY@0800 [facility] Administration Finasteride 5 mg 02/06/19 10:00 02/08/19 09:21 Proscar - PO 5 mg DAILY [facility] Administration Folic Acid 1 mg 02/06/19 10:00 02/08/19 09:21 Folic Acid - PO 1 mg DAILY [facility] Administration Heparin Sodium (Porcine) 5,000 unit 02/05/19 22:00 02/08/19 09:22 Heparin - SQ 5,000 unit BID [facility] Administration IV Flush 4 ml 02/05/19 21:54 Triple Lumen Flush IVPUSH PRN PRN Protocol IV Flush 4 ml 02/05/19 21:54 Triple Lumen Flush IVPUSH PRN PRN Protocol IV Flush 4 ml 02/08/19 10:58 Triple Lumen Flush IVPUSH PRN PRN Protocol Meropenem 1 gm/ Dextrose 100 mls @ 200 mls/hr 02/05/19 22:30 02/08/19 09:27 IVPB 200 mls/hr BID [facility] Administration Sodium Chloride 1,000 mls @ 75 mls/hr 02/07/19 12:00 02/08/19 17:21 Normal Saline - IV Not Given ASDIR [facility] Vancomycin HCl 1,250 mg/ 250 mls @ 250 mls/2 hr 02/08/19 16:00 02/08/19 17:26 Dextrose IVPB 250 mls/2 hr Q24H [facility] Administration Protocol Insulin Aspart 1 vial 02/05/19 22:00 02/08/19 17:47 Novolog Vial Sliding Scale - SQ 2 unit ACHS [facility] Administration Protocol Insulin Detemir 25 units 02/07/19 22:00 02/08/19 06:24 Levemir Vial SQ 25 units BID@0700,2200 [facility] Administration Lactobacillus Acidophilus 1 tab 02/06/19 10:00 02/08/19 09:21 Bacid - PO 1 tab DAILY [facility] Administration Metoprolol Succinate 50 mg 02/06/19 07:00 02/08/19 06:23 Toprol Xl - PO 50 mg AM [facility] Administration Nystatin 500,000 units 02/06/19 00:00 02/08/19 17:48 Nystatin Oral Suspension - PO Not Given Q6HPO [facility] Ondansetron HCl 4 mg 02/05/19 21:54 02/07/19 01:46 Zofran Injection IVPUSH 4 mg Q6H PRN Administration NAUSEA AND/OR VOMITING Oxycodone HCl 5 mg 02/05/19 21:54 02/07/19 13:59 Roxicodone - PO 5 mg Q6H PRN Administration Pain Level 7 - 10 BREAKTHROUGH Promethazine HCl 12.5 mg 02/05/19 21:54 Phenergan Injection - IVPB Q6H PRN NAUSEA AND/OR VOMITING Ranitidine HCl 150 mg 02/05/19 22:00 02/08/19 09:21 Zantac - PO 150 mg BID [facility] Administration Tamsulosin HCl 0.4 mg 02/06/19 08:30 02/08/19 09:21 Flomax - PO 0.4 mg DAILY@0830 [facility] Administration ASSESSMENT/PLAN: 59 year old male with history of DM 2, HTN, HLD, PAD, CAD s/p PCI, CKD 3, presented to the ED with LLE pain, found to have infected LLE ulcer. #LLE loculated/complicated abscess -s/p I&D 02/05/2019 -Meropenem /vanco day 5 #AMADOU on CKD -improving; ml sec to sepsis -avoid nephrotoxins #IDDM - insulin ss -bgm #HTN -metoprolol #Acute on chronic anemia, suspect multifactorial from iron deficiency, renal dysfunction and surgical/wound blood loss -s/p total 4 units PRBC (last on 02/07) -monitor h/H #CAD: -asa/plavix #duplex with stenosis of left sfa; -discussed with vascular; cont asa/plavix dvt ppol; heparin bid Visit type - Emergency Visit Emergency Visit: Yes ED Registration Date: 01/13/19 Care time: The patient presented to the Emergency Department on the above date and was hospitalized for further evaluation of their emergent condition. - New Patient This patient is new to me today: Yes Date on this admission: 02/08/19 - Critical Care Critical Care patient: No
[2019-02-08] MEDS: ATORVASTATIN CA 20 MG TABLET (FP) PO SCH (21:19)
--- NOTE | 2019-02-08 22:47 | PN ---
Progress Note (short form) - Note Progress Note: problems 1. AMADOU 2. lower ext edema 3. leg pain 4. HTN 5. DM 6. CKD Current Medications Acetaminophen (Tylenol -) 650 mg PO Q6H PRN PRN Reason: PAIN LEVEL 4-10 OR FEVER Amino Acids (Prosource No Carb Liquid Pkt) 30 ml PO BID@0800,1730 [facility] Last Admin: 02/07/19 17:47 Dose: 30 ml Aspirin (Asa -) 81 mg PO DAILY [facility] Last Admin: 02/07/19 10:24 Dose: 81 mg Atorvastatin Calcium (Lipitor -) 20 mg PO HS [facility] Last Admin: 02/06/19 22:06 Dose: 20 mg Clopidogrel Bisulfate (Plavix -) 75 mg PO AM [facility] Last Admin: 02/07/19 06:18 Dose: 75 mg Ferrous Sulfate (Feosol -) 325 mg PO DAILY@0800 [facility] Last Admin: 02/07/19 08:36 Dose: 325 mg Finasteride (Proscar -) 5 mg PO DAILY [facility] Last Admin: 02/07/19 10:24 Dose: 5 mg Folic Acid (Folic Acid -) 1 mg PO DAILY [facility] Last Admin: 02/07/19 10:24 Dose: 1 mg Heparin Sodium (Porcine) (Heparin -) 5,000 unit SQ BID [facility] Last Admin: 02/07/19 10:24 Dose: 5,000 unit IV Flush (Triple Lumen Flush) 4 ml IVPUSH PRN PRN PRN Reason: Protocol IV Flush (Triple Lumen Flush) 4 ml IVPUSH PRN PRN PRN Reason: Protocol Meropenem 1 gm/ Dextrose 100 mls @ 200 mls/hr IVPB BID [facility] Last Admin: 02/07/19 10:25 Dose: 200 mls/hr Sodium Chloride (Normal Saline -) 1,000 mls @ 75 mls/hr IV ASDIR [facility] Last Admin: 02/07/19 12:33 Dose: 75 mls/hr Vancomycin HCl 750 mg/ (Dextrose) 250 mls @ 150 mls/hr IVPB DAILY@1300 [facility]; Protocol Insulin Aspart (Novolog Vial Sliding Scale -) 1 vial SQ ACHS [facility]; Protocol Last Admin: 02/07/19 17:48 Dose: 2 unit Insulin Detemir (Levemir Vial) 25 units SQ BID@0700,2200 [facility] Lactobacillus Acidophilus (Bacid -) 1 tab PO DAILY [facility] Last Admin: 02/07/19 10:24 Dose: 1 tab Metoprolol Succinate (Toprol Xl -) 50 mg PO AM [facility] Last Admin: 02/07/19 06:18 Dose: 50 mg Nystatin (Nystatin Oral Suspension -) 500,000 units PO Q6HPO [facility] Last Admin: 02/07/19 17:48 Dose: 500,000 units Ondansetron HCl (Zofran Injection) 4 mg IVPUSH Q6H PRN PRN Reason: NAUSEA AND/OR VOMITING Last Admin: 02/07/19 01:46 Dose: 4 mg Oxycodone HCl (Roxicodone -) 5 mg PO Q6H PRN PRN Reason: Pain Level 7 - 10 BREAKTHROUGH Last Admin: 02/07/19 13:59 Dose: 5 mg Promethazine HCl (Phenergan Injection -) 12.5 mg IVPB Q6H PRN PRN Reason: NAUSEA AND/OR VOMITING Ranitidine HCl (Zantac -) 150 mg PO BID [facility] Last Admin: 02/07/19 10:24 Dose: 150 mg Tamsulosin HCl (Flomax -) 0.4 mg PO DAILY@0830 [facility] Last Admin: 02/07/19 08:36 Dose: 0.4 mg Last Vital Signs Temp Pulse Resp BP Pulse Ox 98.9 F 83 18 123/64 99 02/07/19 19:06 02/07/19 19:06 02/07/19 19:06 02/07/19 19:06 02/07/19 09:00 lungs clear heart reg abd soft non tender ext no edema CBC, BMP 02/08/19 06:30 02/08/19 06:30 CBC, BMP 02/07/19 06:00 02/07/19 06:00 CBC, [facility] 02/04/19 10:30 02/05/19 06:00 IMP- s/p amadou underlying ckd- renal function fluctuating DM Anemia- transfused Plan continue to monitor renal function ensure hydration
[2019-02-09] MEDS: SODIUM CHLORIDE 1,000 ML IV SCH ×2 (00:30→21:46)
[2019-02-09] MEDS: INSULIN SLIDING SCALE (NOVOLOG) 1 VIAL SQ SCH ×4 (06:53→21:54)
[2019-02-09] MEDS: NYSTATIN 500,000 UNITS/5 ML SUSPENSION PO SCH ×4 (06:53→23:16)
[2019-02-09] MEDS: CLOPIDOGREL BISULFATE 75 MG TABLET (FP) PO SCH (06:57)
[2019-02-09] MEDS: INSULIN (LEVEMIR) 100 UNITS/ML UNITS SQ SCH ×2 (06:57→21:53)
[2019-02-09 07:22] LABS: BASO % 0.7 % (0-2.0); EOS % 3.2 % (0-4.5); HEMATOCRIT 23.5 % (35.4-49); LYMPH % 26.6 % (8-40); MCH 29.5 pg (25.7-33.7); MEAN CELL VOLUME 86.8 fl (80-96); NEUT % 59.5 % (42.8-82.8); PLATELET COUNT 231 K/MM3 (134-434); RDW 15.7 % (11.9-15.9); WHITE BLOOD COUNT 6.7 K/mm3 (4.0-10.0)
[2019-02-09 07:25] LABS: ANION GAP 6 MMOL/L (8-16); BLOOD UREA NITROGEN 37 mg/dL (7-18); CHLORIDE 111 mmol/L (98-107); CO2 24 mmol/L (21-32); CREATININE 1.4 mg/dL (0.55-1.3); GLUCOSE,RANDOM 73 mg/dL (74-106); POTASSIUM 4.4 mmol/L (3.5-5.1); SODIUM 141 mmol/L (136-145)
--- NOTE | 2019-02-09 11:37 | PN ---
Physical Exam: SUBJECTIVE: Patient seen and examined; no new complaints; getting CL replaced today OBJECTIVE: Vital Signs Period Temp Pulse Resp BP Sys/Cano Pulse Ox Last 24 Hr 98.1 F-99.3 F 80-89 18-20 127-162/59-73 99 GENERAL: The patient is awake, alert, and fully oriented, in no acute distress. LUNGS: Breath sounds equal, clear to auscultation bilaterally, no wheezes, no crackles, no accessory muscle use. HEART: Regular rate and rhythm, S1, S2 without murmur, rub or gallop. ABDOMEN: Soft, nontender, nondistended, normoactive bowel sounds, no guarding, no rebound, no hepatosplenomegaly, no masses. EXTREMITIES: LLE with wound dressing; three drains in place; Laboratory Results - last 24 hr 02/08/19 02/08/19 02/09/19 17:37 21:17 05:54 WBC RBC Hgb Hct MCV MCH MCHC RDW Plt Count MPV Absolute Neuts (auto) Neutrophils % Lymphocytes % Monocytes % Eosinophils % Basophils % Nucleated RBC % Sodium Potassium Chloride Carbon Dioxide Anion Gap BUN Creatinine Creat Clearance w eGFR POC Glucometer 163 202 78 Random Glucose Calcium 02/09/19 02/09/19 06:00 06:00 WBC 6.7 RBC 2.70 L Hgb 8.0 L Hct 23.5 L MCV 86.8 MCH 29.5 MCHC 34.0 RDW 15.7 Plt Count 231 MPV 8.0 Absolute Neuts (auto) 4.0 Neutrophils % 59.5 Lymphocytes % 26.6 D Monocytes % 10.0 Eosinophils % 3.2 Basophils % 0.7 Nucleated RBC % 0 Sodium 141 Potassium 4.4 Chloride 111 H Carbon Dioxide 24 Anion Gap 6 L BUN 37 H Creatinine 1.4 H Creat Clearance w eGFR 51.52 POC Glucometer Random Glucose 73 L Calcium 8.0 L Active Medications Generic Name Dose Route Start Last Admin Trade Name Freq PRN Reason Stop Dose Admin Acetaminophen 650 mg 02/05/19 22:05 Tylenol - PO Q6H PRN PAIN LEVEL 4-10 OR FEVER Amino Acids 30 ml 02/06/19 08:00 02/08/19 17:48 Prosource No Carb Liquid Pkt PO Not Given BID@0800,1730 [facility] Aspirin 81 mg 02/06/19 10:00 02/08/19 09:21 Asa - PO 81 mg DAILY LISA Administration Atorvastatin Calcium 20 mg 02/05/19 22:00 02/08/19 21:19 Lipitor - PO 20 mg HS LISA Administration Clopidogrel Bisulfate 75 mg 02/06/19 07:00 02/09/19 06:57 Plavix - PO 75 mg AM LISA Administration Ferrous Sulfate 325 mg 02/06/19 08:00 02/08/19 09:22 Feosol - PO 325 mg DAILY@0800 LISA Administration Finasteride 5 mg 02/06/19 10:00 02/08/19 09:21 Proscar - PO 5 mg DAILY LISA Administration Folic Acid 1 mg 02/06/19 10:00 02/08/19 09:21 Folic Acid - PO 1 mg DAILY LISA Administration Heparin Sodium (Porcine) 5,000 unit 02/05/19 22:00 02/08/19 21:19 Heparin - SQ 5,000 unit BID LISA Administration IV Flush 4 ml 02/05/19 21:54 Triple Lumen Flush IVPUSH PRN PRN Protocol IV Flush 4 ml 02/05/19 21:54 Triple Lumen Flush IVPUSH PRN PRN Protocol IV Flush 4 ml 02/08/19 10:58 Triple Lumen Flush IVPUSH PRN PRN Protocol Meropenem 1 gm/ Dextrose 100 mls @ 200 mls/hr 02/05/19 22:30 02/08/19 21:18 IVPB 200 mls/hr BID LISA Administration Sodium Chloride 1,000 mls @ 75 mls/hr 02/07/19 12:00 02/09/19 00:30 Normal Saline - IV 75 mls/hr ASDIR LISA Administration Vancomycin HCl 1,250 mg/ 250 mls @ 250 mls/2 hr 02/08/19 16:00 02/08/19 17:26 Dextrose IVPB 250 mls/2 hr Q24H LISA Administration Protocol Insulin Aspart 1 vial 02/05/19 22:00 02/09/19 06:53 Novolog Vial Sliding Scale - SQ Not Given ACHS [facility] Protocol Insulin Detemir 20 units 02/09/19 22:00 Levemir Vial SQ BID@0700,2200 [facility] Lactobacillus Acidophilus 1 tab 02/06/19 10:00 02/08/19 09:21 Bacid - PO 1 tab DAILY LISA Administration Metoprolol Succinate 50 mg 02/06/19 07:00 02/09/19 06:57 Toprol Xl - PO 50 mg AM [facility] Administration Nystatin 500,000 units 02/06/19 00:00 02/09/19 06:53 Nystatin Oral Suspension - PO Not Given Q6HPO [facility] Ondansetron HCl 4 mg 02/05/19 21:54 02/07/19 01:46 Zofran Injection IVPUSH 4 mg Q6H PRN Administration NAUSEA AND/OR VOMITING Oxycodone HCl 5 mg 02/05/19 21:54 02/07/19 13:59 Roxicodone - PO 5 mg Q6H PRN Administration Pain Level 7 - 10 BREAKTHROUGH Promethazine HCl 12.5 mg 02/05/19 21:54 Phenergan Injection - IVPB Q6H PRN NAUSEA AND/OR VOMITING Ranitidine HCl 150 mg 02/05/19 22:00 02/08/19 21:19 Zantac - PO 150 mg BID [facility] Administration Tamsulosin HCl 0.4 mg 02/06/19 08:30 02/08/19 09:21 Flomax - PO 0.4 mg DAILY@0830 [facility] Administration ASSESSMENT/PLAN: 59 year old male with history of DM 2, HTN, HLD, PAD, CAD s/p PCI, CKD 3, presented to the ED with LLE pain, found to have infected LLE ulcer. #LLE loculated/complicated abscess -s/p I&D 02/05/2019 -wound culture +; -meropenem /vanco -ID following; need to discuss antibiotics regimen retirement; need for pic line -need to ambulate; PT #AMADOU on CKD -improving; ml sec to sepsis -avoid nephrotoxins #IDDM - insulin ss -bgm #HTN -metoprolol #Acute on chronic anemia, suspect multifactorial from iron deficiency, renal dysfunction and surgical/wound blood loss -s/p total 4 units PRBC (last on 02/07) -monitor h/H #CAD: -asa/plavix #duplex with stenosis of left sfa; -discussed with vascular; cont asa/plavix dvt ppol; heparin bid; evangelina to to ambulated Visit type - Emergency Visit Emergency Visit: Yes ED Registration Date: 01/13/19 Care time: The patient presented to the Emergency Department on the above date and was hospitalized for further evaluation of their emergent condition. - New Patient This patient is new to me today: No - Critical Care Critical Care patient: No
[2019-02-09] MEDS: AMINO ACIDS/PROTEIN HYDROLYS 30 ML LIQUID.PKT PO SCH ×2 (12:53→17:01)
[2019-02-09] MEDS: FINASTERIDE 5 MG TABLET (FP) PO SCH (12:54)
[2019-02-09] MEDS: FOLIC ACID 1 MG TABLET (FP) PO SCH (12:54)
[2019-02-09] MEDS: RANITIDINE HCL 150 MG TABLET (FP) PO SCH ×2 (12:54→21:53)
[2019-02-09] MEDS: ASPIRIN 81 MG CHEWABLE TABLETS PO SCH (12:54)
[2019-02-09] MEDS: TAMSULOSIN HCL 0.4 MG CAP PO SCH (12:54)
[2019-02-09] MEDS: LACTOBACILLUS ACIDOPHILUS 1 TABLET PO SCH (12:54)
[2019-02-09] MEDS: FERROUS SO4 325 MG TABLET (FP) PO SCH (12:54)
[2019-02-09] MEDS: MEROPENEM 1 GM in DEXTROSE 5%-WATER 100 ML IVPB SCH (12:55)
[2019-02-09] MEDS: HEPARIN NA (PORCINE) 5,000 UNITS/ML 1ML VIAL SQ SCH ×2 (12:55→21:53)
[2019-02-09] MEDS ORDERED: INSULIN (NOVOLOG) ASPART 100 UNITS/ML 10ML VIAL ONE (13:10)
[2019-02-09 15:18] VITALS: BMI 32.8
--- NOTE | 2019-02-09 16:24 | PN ---
Teaching Attending Note Name of Resident: Monica Mosley ATTENDING PHYSICIAN STATEMENT I saw and evaluated the patient. I reviewed the resident's note and discussed the case with the resident. I agree with the resident's findings and plan as documented with exceptions below. SUBJECTIVE: Patient seen and examined. denies any new pain. OBJECTIVE: Vital Signs Period Temp Pulse Resp BP Sys/Cano Pulse Ox Last 24 Hr 98.4 F-99.3 F 80-89 16-20 127-139/59-73 99 Intake & Output 02/06/19 02/07/19 02/08/19 02/09/19 23:59 23:59 23:59 23:59 Intake Total 440 1850 525 Output Total 1380 900 Balance -940 950 525 Weight 247 lb 1.6 oz 248 lb 9.6 oz 249 lb 6 oz General: sitting in bed in no acute distress Neck: right central triple lumen Chest: CTAB, no rales or wheezing Abdomen:soft, obese, NT Extremities: left calf dressing sanguinopurulent drainage, improved tenderness, scattered indurated areas in left calf, softer than before, left foot swelling Home Medications Medication Instructions Recorded Aspirin [ASA -] 81 mg PO DAILY 01/13/19 Atorvastatin Ca [Lipitor] 20 mg PO HS 01/13/19 Clopidogrel Bisulfate [Plavix] 75 mg PO AM 01/13/19 Insulin (Novolog 70/30) [Novolog 30 units SQ HS 01/13/19 Mix 70/30 Vial] Insulin (Novolog 70/30) [Novolog 54 units SQ AM 01/13/19 Mix 70/30 Vial] Metoprolol Succinate 50 mg PO AM 01/13/19 Active Medications Acetaminophen (Tylenol -) 650 mg PO Q6H PRN PRN Reason: PAIN LEVEL 4-10 OR FEVER Amino Acids (Prosource No Carb Liquid Pkt) 30 ml PO BID@0800,1730 [facility] Last Admin: 02/09/19 12:53 Dose: 30 ml Aspirin (Asa -) 81 mg PO DAILY [facility] Last Admin: 02/09/19 12:54 Dose: 81 mg Atorvastatin Calcium (Lipitor -) 20 mg PO HS [facility] Last Admin: 02/08/19 21:19 Dose: 20 mg Clopidogrel Bisulfate (Plavix -) 75 mg PO AM [facility] Last Admin: 02/09/19 06:57 Dose: 75 mg Ferrous Sulfate (Feosol -) 325 mg PO DAILY@0800 [facility] Last Admin: 02/09/19 12:54 Dose: 325 mg Finasteride (Proscar -) 5 mg PO DAILY [facility] Last Admin: 02/09/19 12:54 Dose: 5 mg Folic Acid (Folic Acid -) 1 mg PO DAILY [facility] Last Admin: 02/09/19 12:54 Dose: 1 mg Heparin Sodium (Porcine) (Heparin -) 5,000 unit SQ BID [facility] Last Admin: 02/09/19 12:55 Dose: 5,000 unit IV Flush (Triple Lumen Flush) 4 ml IVPUSH PRN PRN PRN Reason: Protocol IV Flush (Triple Lumen Flush) 4 ml IVPUSH PRN PRN PRN Reason: Protocol IV Flush (Triple Lumen Flush) 4 ml IVPUSH PRN PRN PRN Reason: Protocol Meropenem 1 gm/ Dextrose 100 mls @ 200 mls/hr IVPB BID [facility] Last Admin: 02/09/19 12:55 Dose: 200 mls/hr Sodium Chloride (Normal Saline -) 1,000 mls @ 75 mls/hr IV ASDIR [facility] Last Admin: 02/09/19 00:30 Dose: 75 mls/hr Vancomycin HCl 1,250 mg/ (Dextrose) 250 mls @ 250 mls/2 hr IVPB Q24H [facility]; Protocol Last Admin: 02/08/19 17:26 Dose: 250 mls/2 hr Insulin Aspart (Novolog Vial Sliding Scale -) 1 vial SQ ACHS [facility]; Protocol Last Admin: 02/09/19 12:59 Dose: 2 unit Insulin Detemir (Levemir Vial) 20 units SQ BID@0700,2200 [facility] Lactobacillus Acidophilus (Bacid -) 1 tab PO DAILY [facility] Last Admin: 02/09/19 12:54 Dose: 1 tab Metoprolol Succinate (Toprol Xl -) 50 mg PO AM [facility] Last Admin: 02/09/19 06:57 Dose: 50 mg Nystatin (Nystatin Oral Suspension -) 500,000 units PO Q6HPO [facility] Last Admin: 02/09/19 12:56 Dose: 500,000 units Ondansetron HCl (Zofran Injection) 4 mg IVPUSH Q6H PRN PRN Reason: NAUSEA AND/OR VOMITING Last Admin: 02/07/19 01:46 Dose: 4 mg Oxycodone HCl (Roxicodone -) 5 mg PO Q6H PRN PRN Reason: Pain Level 7 - 10 BREAKTHROUGH Last Admin: 02/07/19 13:59 Dose: 5 mg Promethazine HCl (Phenergan Injection -) 12.5 mg IVPB Q6H PRN PRN Reason: NAUSEA AND/OR VOMITING Ranitidine HCl (Zantac -) 150 mg PO BID [facility] Last Admin: 02/09/19 12:54 Dose: 150 mg Tamsulosin HCl (Flomax -) 0.4 mg PO DAILY@0830 [facility] Last Admin: 02/09/19 12:54 Dose: 0.4 mg Laboratory Results - last 24 hr 02/08/19 02/08/19 02/09/19 17:37 21:17 05:54 WBC RBC Hgb Hct MCV MCH MCHC RDW Plt Count MPV Absolute Neuts (auto) Neutrophils % Lymphocytes % Monocytes % Eosinophils % Basophils % Nucleated RBC % Sodium Potassium Chloride Carbon Dioxide Anion Gap BUN Creatinine Creat Clearance w eGFR POC Glucometer 163 202 78 Random Glucose Calcium 02/09/19 02/09/19 02/09/19 06:00 06:00 12:58 WBC 6.7 RBC 2.70 L Hgb 8.0 L Hct 23.5 L MCV 86.8 MCH 29.5 MCHC 34.0 RDW 15.7 Plt Count 231 MPV 8.0 Absolute Neuts (auto) 4.0 Neutrophils % 59.5 Lymphocytes % 26.6 D Monocytes % 10.0 Eosinophils % 3.2 Basophils % 0.7 Nucleated RBC % 0 Sodium 141 Potassium 4.4 Chloride 111 H Carbon Dioxide 24 Anion Gap 6 L BUN 37 H Creatinine 1.4 H Creat Clearance w eGFR 51.52 POC Glucometer 190 Random Glucose 73 L Calcium 8.0 L Microbiology 02/05/19 19:56 Leg - Left Lower Gram Stain - Final 02/05/19 19:56 Leg - Left Lower Wound Culture - Final S Aureus 02/04/19 10:30 Blood - Central Line Blood Culture - Final NO GROWTH AFTER 5 DAYS INCUBATION 02/04/19 10:45 Blood - Peripheral Venous Blood Culture - Final NO GROWTH AFTER 5 DAYS INCUBATION 01/26/19 18:00 Blood - Peripheral Venous Blood Culture - Final NO GROWTH AFTER 5 DAYS INCUBATION 01/26/19 18:00 Blood - Peripheral Venous Blood Culture - Final NO GROWTH AFTER 5 DAYS INCUBATION 01/29/19 10:50 Wound-Other Gram Stain - Final 01/29/19 10:50 Wound-Other Wound Culture - Final NO GROWTH AFTER 48 HOURS INCUBATION 01/27/19 07:10 Urine - Urine Clean Catch Urine Culture - Final NO GROWTH OBTAINED 01/22/19 06:30 Blood - Peripheral Venous Blood Culture - Final NO GROWTH AFTER 5 DAYS INCUBATION 01/22/19 06:30 Blood - Peripheral Venous Blood Culture - Final NO GROWTH AFTER 5 DAYS INCUBATION 01/23/19 20:30 Stool Clostridium difficile Antigen (AMBER) - Final 01/23/19 20:30 Stool Clostridium difficile Toxin Assay - Final 01/17/19 14:58 Blood - Peripheral Venous Blood Culture - Final NO GROWTH AFTER 5 DAYS INCUBATION 01/17/19 13:50 Blood - Peripheral Venous Blood Culture - Final NO GROWTH AFTER 5 DAYS INCUBATION 01/18/19 12:00 Calf - Left Posterior Gram Stain - Final 01/18/19 12:00 Calf - Left Posterior Wound Culture - Final S Aureus 01/17/19 13:35 Urine - Urine Lee Urine Culture - Final NO GROWTH OBTAINED ASSESSMENT AND PLAN: 59 yom with PMHx of IDDM, HTN, HLD, PAD, CAD s/p PCI, CKD, admitted with LLE pain, AMADOU. -LLE loculated/complicated abscess s/p I&D 02/05/2019 -AMADOU, suspect from infection/urinary retention, recurrent AMADOU 02/07/2019, from blood loss/fluid shift OR+/- unreliable PO intake, retention ruled out -IDDM -HTN -Acute on chronic anemia, suspect multifactorial from iron deficiency, renal dysfunction and surgical/wound blood loss s/p total 4 units PRBC (last on 02/07) -HLD -PAD -CAD s/p PCI Plan: LLE wound with 3 asuncion drains, actively draining. Discuss with surgery about wound care plan and if needs additional drainage/ intervention. Wound cx with MRSA Meropenem d/melony. discussed with Dr. Espinoza, plan for 3 weeks vancomycin. Vancomycin dose increased given improved renal function. Check level before 4th dose. Central line changed by IR today. Will need PICC once dispo plan arranged. Fevers resolved, no leucocytosis Cr improved. Continue IVF. No evidence of retention. Continue flomax. renal/ bladder US noted. s/p 4 units PRBC, monitor h/h. Arterial duplex noted, discussed with Dr. Zamarripa, no active intervention. Continue ASA/Plavix with close h/h monitoring. AM hypoglycemia, decrease levemir to 20 units BID. ISS, diabetic diet. Heparin subq BID with close monitoring of h/h. Dispo pending clinical improvement, SNF pending surgical/ID input. Plan discussed with patient, nursing and CM in detail, all questions answered.
[2019-02-09] MEDS: VANCOMYCIN HCL 1,250 MG in DEXTROSE 5%-WATER - 250 ML IVPB SCH (17:00)
--- NOTE | 2019-02-09 17:06 | PN ---
Progress Note, Physician History of Present Illness: Pt seen and examined at bedside. He is awake and alert. He denies shortness of breath. - Current Medication List Current Medications: Active Medications Acetaminophen (Tylenol -) 650 mg PO Q6H PRN PRN Reason: PAIN LEVEL 4-10 OR FEVER Amino Acids (Prosource No Carb Liquid Pkt) 30 ml PO BID@0800,1730 [facility] Last Admin: 02/09/19 17:01 Dose: 30 ml Aspirin (Asa -) 81 mg PO DAILY [facility] Last Admin: 02/09/19 12:54 Dose: 81 mg Atorvastatin Calcium (Lipitor -) 20 mg PO HS [facility] Last Admin: 02/08/19 21:19 Dose: 20 mg Clopidogrel Bisulfate (Plavix -) 75 mg PO AM [facility] Last Admin: 02/09/19 06:57 Dose: 75 mg Ferrous Sulfate (Feosol -) 325 mg PO DAILY@0800 [facility] Last Admin: 02/09/19 12:54 Dose: 325 mg Finasteride (Proscar -) 5 mg PO DAILY [facility] Last Admin: 02/09/19 12:54 Dose: 5 mg Folic Acid (Folic Acid -) 1 mg PO DAILY [facility] Last Admin: 02/09/19 12:54 Dose: 1 mg Heparin Sodium (Porcine) (Heparin -) 5,000 unit SQ BID [facility] Last Admin: 02/09/19 12:55 Dose: 5,000 unit IV Flush (Triple Lumen Flush) 4 ml IVPUSH PRN PRN PRN Reason: Protocol IV Flush (Triple Lumen Flush) 4 ml IVPUSH PRN PRN PRN Reason: Protocol IV Flush (Triple Lumen Flush) 4 ml IVPUSH PRN PRN PRN Reason: Protocol Meropenem 1 gm/ Dextrose 100 mls @ 200 mls/hr IVPB BID [facility] Last Admin: 02/09/19 12:55 Dose: 200 mls/hr Sodium Chloride (Normal Saline -) 1,000 mls @ 75 mls/hr IV ASDIR [facility] Last Admin: 02/09/19 00:30 Dose: 75 mls/hr Vancomycin HCl 1,250 mg/ (Dextrose) 250 mls @ 250 mls/2 hr IVPB Q24H [facility]; Protocol Last Admin: 02/09/19 17:00 Dose: 250 mls/2 hr Insulin Aspart (Novolog Vial Sliding Scale -) 1 vial SQ ACHS [facility]; Protocol Last Admin: 02/09/19 12:59 Dose: 2 unit Insulin Detemir (Levemir Vial) 20 units SQ BID@0700,2200 [facility] Lactobacillus Acidophilus (Bacid -) 1 tab PO DAILY [facility] Last Admin: 02/09/19 12:54 Dose: 1 tab Metoprolol Succinate (Toprol Xl -) 50 mg PO AM [facility] Last Admin: 02/09/19 06:57 Dose: 50 mg Nystatin (Nystatin Oral Suspension -) 500,000 units PO Q6HPO [facility] Last Admin: 02/09/19 12:56 Dose: 500,000 units Ondansetron HCl (Zofran Injection) 4 mg IVPUSH Q6H PRN PRN Reason: NAUSEA AND/OR VOMITING Last Admin: 02/07/19 01:46 Dose: 4 mg Oxycodone HCl (Roxicodone -) 5 mg PO Q6H PRN PRN Reason: Pain Level 7 - 10 BREAKTHROUGH Last Admin: 02/07/19 13:59 Dose: 5 mg Promethazine HCl (Phenergan Injection -) 12.5 mg IVPB Q6H PRN PRN Reason: NAUSEA AND/OR VOMITING Ranitidine HCl (Zantac -) 150 mg PO BID [facility] Last Admin: 02/09/19 12:54 Dose: 150 mg Tamsulosin HCl (Flomax -) 0.4 mg PO DAILY@0830 [facility] Last Admin: 02/09/19 12:54 Dose: 0.4 mg - Objective Vital Signs: Vital Signs Temperature 99.0 F 02/09/19 13:45 Pulse Rate 83 02/09/19 13:45 Respiratory Rate 16 02/09/19 13:45 Blood Pressure 139/73 02/09/19 13:45 O2 Sat by Pulse Oximetry (%) 99 02/09/19 09:00 Constitutional: Yes: Calm Eyes: Yes: Conjunctiva Clear HENT: Yes: Atraumatic Neck: Yes: Supple Cardiovascular: Yes: S1, S2 Respiratory: Yes: CTA Bilaterally Gastrointestinal: Yes: Soft Genitourinary: Yes: WNL Musculoskeletal: Yes: WNL Edema: LLE: 1+ Neurological: Yes: Oriented Psychiatric: Yes: Oriented Labs: CBC, BMP 02/09/19 06:00 02/09/19 06:00 INR, PTT INR 1.19 (0.83-1.09) H 01/28/19 09:20 Problem List - Problems (1) AMADOU (acute kidney injury) Code(s): N17.9 - ACUTE KIDNEY FAILURE, UNSPECIFIED (2) CHF (congestive heart failure) Code(s): I50.9 - HEART FAILURE, UNSPECIFIED Qualifiers: Heart failure type: unspecified Heart failure chronicity: chronic Qualified Code(s): I50.9 - Heart failure, unspecified (3) CKD (chronic kidney disease) Code(s): N18.9 - CHRONIC KIDNEY DISEASE, UNSPECIFIED Qualifiers: Chronic kidney disease stage: stage 3 (moderate) Qualified Code(s): N18.3 - Chronic kidney disease, stage 3 (moderate) (4) HTN (hypertension) Code(s): I10 - ESSENTIAL (PRIMARY) HYPERTENSION Qualifiers: Hypertension type: essential hypertension Qualified Code(s): I10 - Essential (primary) hypertension (5) IDDM (insulin dependent diabetes mellitus) Code(s): E11.9 - TYPE 2 DIABETES MELLITUS WITHOUT COMPLICATIONS; Z79.4 - REMOTE ADVISOR (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 OF INSULIN (6) Left leg pain Code(s): M79.605 - PAIN IN LEFT LEG Assessment/Plan Current Medications Generic Name Dose Route Start Last Admin Trade Name Freq PRN Reason Stop Dose Admin Acetaminophen 650 mg 02/05/19 22:05 Tylenol - PO Q6H PRN PAIN LEVEL 4-10 OR FEVER Amino Acids 30 ml 02/06/19 08:00 02/09/19 17:01 Prosource No Carb Liquid Pkt PO 30 ml BID@0800,1730 [facility] Administration Aspirin 81 mg 02/06/19 10:00 02/09/19 12:54 Asa - PO 81 mg DAILY [facility] Administration Atorvastatin Calcium 20 mg 02/05/19 22:00 02/08/19 21:19 Lipitor - PO 20 mg HS [facility] Administration Clopidogrel Bisulfate 75 mg 02/06/19 07:00 02/09/19 06:57 Plavix - PO 75 mg AM [facility] Administration Ferrous Sulfate 325 mg 02/06/19 08:00 02/09/19 12:54 Feosol - PO 325 mg DAILY@0800 [facility] Administration Finasteride 5 mg 02/06/19 10:00 02/09/19 12:54 Proscar - PO 5 mg DAILY [facility] Administration Folic Acid 1 mg 02/06/19 10:00 02/09/19 12:54 Folic Acid - PO 1 mg DAILY [facility] Administration Heparin Sodium (Porcine) 5,000 unit 02/05/19 22:00 02/09/19 12:55 Heparin - SQ 5,000 unit BID [facility] Administration IV Flush 4 ml 02/05/19 21:54 Triple Lumen Flush IVPUSH PRN PRN Protocol IV Flush 4 ml 02/05/19 21:54 Triple Lumen Flush IVPUSH PRN PRN Protocol IV Flush 4 ml 02/08/19 10:58 Triple Lumen Flush IVPUSH PRN PRN Protocol Meropenem 1 gm/ Dextrose 100 mls @ 200 mls/hr 02/05/19 22:30 02/09/19 12:55 IVPB 200 mls/hr BID [facility] Administration Sodium Chloride 1,000 mls @ 75 mls/hr 02/07/19 12:00 02/09/19 00:30 Normal Saline - IV 75 mls/hr ASDIR [facility] Administration Vancomycin HCl 1,250 mg/ 250 mls @ 250 mls/2 hr 02/08/19 16:00 02/09/19 17:00 Dextrose IVPB 250 mls/2 hr Q24H [facility] Administration Protocol Insulin Aspart 1 vial 02/05/19 22:00 02/09/19 12:59 Novolog Vial Sliding Scale - SQ 2 unit ACHS [facility] Administration Protocol Insulin Detemir 20 units 02/09/19 22:00 Levemir Vial SQ BID@0700,2200 [facility] Lactobacillus Acidophilus 1 tab 02/06/19 10:00 02/09/19 12:54 Bacid - PO 1 tab DAILY [facility] Administration Metoprolol Succinate 50 mg 02/06/19 07:00 02/09/19 06:57 Toprol Xl - PO 50 mg AM [facility] Administration Nystatin 500,000 units 02/06/19 00:00 02/09/19 12:56 Nystatin Oral Suspension - PO 500,000 units Q6HPO [facility] Administration Ondansetron HCl 4 mg 02/05/19 21:54 02/07/19 01:46 Zofran Injection IVPUSH 4 mg Q6H PRN Administration NAUSEA AND/OR VOMITING Oxycodone HCl 5 mg 02/05/19 21:54 02/07/19 13:59 Roxicodone - PO 5 mg Q6H PRN Administration Pain Level 7 - 10 BREAKTHROUGH Promethazine HCl 12.5 mg 02/05/19 21:54 Phenergan Injection - IVPB Q6H PRN NAUSEA AND/OR VOMITING Ranitidine HCl 150 mg 02/05/19 22:00 02/09/19 12:54 Zantac - PO 150 mg BID [facility] Administration Tamsulosin HCl 0.4 mg 02/06/19 08:30 02/09/19 12:54 Flomax - PO 0.4 mg DAILY@0830 [facility] Administration Impression 1. AMADOU 2. lower ext edema 3. leg pain 4. HTN 5. DM 6. CKD 7. large post void residual 8. cellulitis 9. sepsis Plan - renal function is improving - abx per ID - renal function stabilizing - avoid nsaids - avoid nephrotoxins - amadou likely in part from sepsis
--- NOTE | 2019-02-09 17:22 | PN ---
Progress Note, Physician History of Present Illness: Patient with 3 wks LLE swelling throughout, fevers, wbc and progressive CT changes suggestive of developing infection in tissue planes, with identification of purulence draining from fluctuant areas ultimately requiring OR I&D. Large area of purulence evacuated from planes of upper posterior calf with extensions into deeper tissues at and above popliteal fossa, and four openings left for drainage with Amanda drains to maintain tracts and packing of all reachable spaces with one continuous betadine-saline Kerlix gauze. Antibiotics per ID - on Vanco for MRSA. Pt seen and examined in bed, with minimal pain. Dressing was done earlier today, now with some brownish drainage just soaking through posteriorly. Intraoperative culture with MRSA, same sensitivities. CVC was changed today. Per primary team, plan is for PICC for Vanco for a while yet per ID. Seen and examined with Dr. Petersen. Dressing changed. Leg much less edematous. - Current Medication List Current Medications: Active Medications Acetaminophen (Tylenol -) 650 mg PO Q6H PRN PRN Reason: PAIN LEVEL 4-10 OR FEVER Amino Acids (Prosource No Carb Liquid Pkt) 30 ml PO BID@0800,1730 [facility] Last Admin: 02/09/19 17:01 Dose: 30 ml Aspirin (Asa -) 81 mg PO DAILY [facility] Last Admin: 02/09/19 12:54 Dose: 81 mg Atorvastatin Calcium (Lipitor -) 20 mg PO HS [facility] Last Admin: 02/08/19 21:19 Dose: 20 mg Clopidogrel Bisulfate (Plavix -) 75 mg PO AM [facility] Last Admin: 02/09/19 06:57 Dose: 75 mg Ferrous Sulfate (Feosol -) 325 mg PO DAILY@0800 [facility] Last Admin: 02/09/19 12:54 Dose: 325 mg Finasteride (Proscar -) 5 mg PO DAILY [facility] Last Admin: 02/09/19 12:54 Dose: 5 mg Folic Acid (Folic Acid -) 1 mg PO DAILY [facility] Last Admin: 02/09/19 12:54 Dose: 1 mg Heparin Sodium (Porcine) (Heparin -) 5,000 unit SQ BID [facility] Last Admin: 02/09/19 12:55 Dose: 5,000 unit IV Flush (Triple Lumen Flush) 4 ml IVPUSH PRN PRN PRN Reason: Protocol IV Flush (Triple Lumen Flush) 4 ml IVPUSH PRN PRN PRN Reason: Protocol IV Flush (Triple Lumen Flush) 4 ml IVPUSH PRN PRN PRN Reason: Protocol Meropenem 1 gm/ Dextrose 100 mls @ 200 mls/hr IVPB BID [facility] Last Admin: 02/09/19 12:55 Dose: 200 mls/hr Sodium Chloride (Normal Saline -) 1,000 mls @ 75 mls/hr IV ASDIR [facility] Last Admin: 02/09/19 00:30 Dose: 75 mls/hr Vancomycin HCl 1,250 mg/ (Dextrose) 250 mls @ 250 mls/2 hr IVPB Q24H [facility]; Protocol Last Admin: 02/09/19 17:00 Dose: 250 mls/2 hr Insulin Aspart (Novolog Vial Sliding Scale -) 1 vial SQ ACHS [facility]; Protocol Last Admin: 02/09/19 12:59 Dose: 2 unit Insulin Detemir (Levemir Vial) 20 units SQ BID@0700,2200 [facility] Lactobacillus Acidophilus (Bacid -) 1 tab PO DAILY [facility] Last Admin: 02/09/19 12:54 Dose: 1 tab Metoprolol Succinate (Toprol Xl -) 50 mg PO AM [facility] Last Admin: 02/09/19 06:57 Dose: 50 mg Nystatin (Nystatin Oral Suspension -) 500,000 units PO Q6HPO [facility] Last Admin: 02/09/19 12:56 Dose: 500,000 units Ondansetron HCl (Zofran Injection) 4 mg IVPUSH Q6H PRN PRN Reason: NAUSEA AND/OR VOMITING Last Admin: 02/07/19 01:46 Dose: 4 mg Oxycodone HCl (Roxicodone -) 5 mg PO Q6H PRN PRN Reason: Pain Level 7 - 10 BREAKTHROUGH Last Admin: 02/07/19 13:59 Dose: 5 mg Promethazine HCl (Phenergan Injection -) 12.5 mg IVPB Q6H PRN PRN Reason: NAUSEA AND/OR VOMITING Ranitidine HCl (Zantac -) 150 mg PO BID [facility] Last Admin: 02/09/19 12:54 Dose: 150 mg Tamsulosin HCl (Flomax -) 0.4 mg PO DAILY@0830 [facility] Last Admin: 02/09/19 12:54 Dose: 0.4 mg - Objective Vital Signs: Vital Signs Temperature 99.0 F 02/09/19 13:45 Pulse Rate 83 02/09/19 13:45 Respiratory Rate 16 02/09/19 13:45 Blood Pressure 139/73 02/09/19 13:45 O2 Sat by Pulse Oximetry (%) 99 02/09/19 09:00 Constitutional: Yes: Well Nourished, No Distress, Calm Eyes: Yes: Conjunctiva Clear, EOM Intact HENT: Yes: Atraumatic, Normocephalic Musculoskeletal: No: Joint Stiffness, Joint Swelling Extremities: No: Cool, Cyanosis, Erythema Edema: Yes Edema: LLE: Trace (very little compared to before) Integumentary: Yes: Incision (x4 with Penroses intact - dressed). No: Erythema , Jaundice, Rash Wound/Incision: Yes: Dressing Dry and Intact (intact but wet posteriorly, just coming through all layers), Dressing Removed (and replaced - dry gauze, ABDs and Kerlix wrap), Draining (serosang, brownish), Unapproximated (x4 small openings). No: Reddened, Bleeding Neurological: Yes: Alert, Oriented Labs: CBC, BMP 02/09/19 06:00 02/09/19 06:00 Microbiology 02/05/19 19:56 Gram Stain - Final Leg - Left Lower Wound Culture - Final S Aureus 02/04/19 10:30 Blood Culture - Final Blood - Central Line NO GROWTH AFTER 5 DAYS INCUBATION 02/04/19 10:45 Blood Culture - Final Blood - Peripheral Venous NO GROWTH AFTER 5 DAYS INCUBATION Problem List - Problems (1) Abscess of left lower leg Assessment/Plan: POD4 s/p complicated/multiple I&D of left lower leg abscess continue Vanco per ID outer dressing changed with Dr. Petersen of primary team continue BID AND PRN changes of outer dressing over [place] drains to manage drainage from open areas nursing to remove and replace outer dressings PRN pain meds prn, nonnarcotics will follow periodically SW/CM will need to arrange BID AND PRN wound care with outer dressings (gauze, ABD pads, Kerlix wrapping) but no actual packing of wounds, after discharge may be going to subacute rehab facility can be [facility] in future with me every [address] Espinoza of ID and Dr. Petersen of primary team Code(s): L02.416 - CUTANEOUS ABSCESS OF LEFT LOWER LIMB (2) Pain and swelling of left lower leg Assessment/Plan: much improved Code(s): M79.662 - PAIN IN LEFT LOWER LEG; M79.89 - OTHER SPECIFIED SOFT TISSUE DISORDERS (3) Infection with methicillin-resistant Staphylococcus aureus (MRSA) Code(s): A49.02 - METHICILLIN RESIS STAPH INFECTION, UNSP SITE (4) Anemia Code(s): D64.9 - ANEMIA, UNSPECIFIED Qualifiers: Anemia type: due to chronic kidney disease Chronic kidney disease stage: stage 3 (moderate) Qualified Code(s): N18.3 - Chronic kidney disease, stage 3 (moderate); D63.1 - Anemia in chronic kidney disease (5) HTN (hypertension) Code(s): I10 - ESSENTIAL (PRIMARY) HYPERTENSION Qualifiers: Hypertension type: essential hypertension Qualified Code(s): I10 - Essential (primary) hypertension (6) T2DM (type 2 diabetes mellitus) Code(s): E11.9 - TYPE 2 DIABETES MELLITUS WITHOUT COMPLICATIONS Qualifiers: Diabetes mellitus group home insulin use: with group home use Diabetes mellitus complication status: with kidney complications Diabetes mellitus complication detail: with chronic kidney disease Chronic kidney disease stage : stage 3 (moderate) Qualified Code(s): E11.22 - Type 2 diabetes mellitus with diabetic chronic kidney disease; N18.3 - Chronic kidney disease, stage 3 ( moderate); Z79.4 - snf (current) use of insulin (7) CHF (congestive heart failure) Code(s): I50.9 - HEART FAILURE, UNSPECIFIED Qualifiers: Heart failure type: unspecified Heart failure chronicity: chronic Qualified Code(s): I50.9 - Heart failure, unspecified
--- NOTE | 2019-02-09 17:37 | PN ---
Progress Note, Physician History of Present Illness: patient stable still draining a lot clinically patient feels better ' - Current Medication List Current Medications: Active Medications Acetaminophen (Tylenol -) 650 mg PO Q6H PRN PRN Reason: PAIN LEVEL 4-10 OR FEVER Amino Acids (Prosource No Carb Liquid Pkt) 30 ml PO BID@0800,1730 [facility] Last Admin: 02/09/19 17:01 Dose: 30 ml Aspirin (Asa -) 81 mg PO DAILY [facility] Last Admin: 02/09/19 12:54 Dose: 81 mg Atorvastatin Calcium (Lipitor -) 20 mg PO HS [facility] Last Admin: 02/08/19 21:19 Dose: 20 mg Clopidogrel Bisulfate (Plavix -) 75 mg PO AM [facility] Last Admin: 02/09/19 06:57 Dose: 75 mg Ferrous Sulfate (Feosol -) 325 mg PO DAILY@0800 [facility] Last Admin: 02/09/19 12:54 Dose: 325 mg Finasteride (Proscar -) 5 mg PO DAILY [facility] Last Admin: 02/09/19 12:54 Dose: 5 mg Folic Acid (Folic Acid -) 1 mg PO DAILY [facility] Last Admin: 02/09/19 12:54 Dose: 1 mg Heparin Sodium (Porcine) (Heparin -) 5,000 unit SQ BID [facility] Last Admin: 02/09/19 12:55 Dose: 5,000 unit IV Flush (Triple Lumen Flush) 4 ml IVPUSH PRN PRN PRN Reason: Protocol IV Flush (Triple Lumen Flush) 4 ml IVPUSH PRN PRN PRN Reason: Protocol IV Flush (Triple Lumen Flush) 4 ml IVPUSH PRN PRN PRN Reason: Protocol Meropenem 1 gm/ Dextrose 100 mls @ 200 mls/hr IVPB BID [facility] Last Admin: 02/09/19 12:55 Dose: 200 mls/hr Sodium Chloride (Normal Saline -) 1,000 mls @ 75 mls/hr IV ASDIR [facility] Last Admin: 02/09/19 00:30 Dose: 75 mls/hr Vancomycin HCl 1,250 mg/ (Dextrose) 250 mls @ 250 mls/2 hr IVPB Q24H [facility]; Protocol Last Admin: 02/09/19 17:00 Dose: 250 mls/2 hr Insulin Aspart (Novolog Vial Sliding Scale -) 1 vial SQ ACHS [facility]; Protocol Last Admin: 02/09/19 12:59 Dose: 2 unit Insulin Detemir (Levemir Vial) 20 units SQ BID@0700,2200 [facility] Lactobacillus Acidophilus (Bacid -) 1 tab PO DAILY [facility] Last Admin: 02/09/19 12:54 Dose: 1 tab Metoprolol Succinate (Toprol Xl -) 50 mg PO AM [facility] Last Admin: 02/09/19 06:57 Dose: 50 mg Nystatin (Nystatin Oral Suspension -) 500,000 units PO Q6HPO [facility] Last Admin: 02/09/19 12:56 Dose: 500,000 units Ondansetron HCl (Zofran Injection) 4 mg IVPUSH Q6H PRN PRN Reason: NAUSEA AND/OR VOMITING Last Admin: 02/07/19 01:46 Dose: 4 mg Oxycodone HCl (Roxicodone -) 5 mg PO Q6H PRN PRN Reason: Pain Level 7 - 10 BREAKTHROUGH Last Admin: 02/07/19 13:59 Dose: 5 mg Promethazine HCl (Phenergan Injection -) 12.5 mg IVPB Q6H PRN PRN Reason: NAUSEA AND/OR VOMITING Ranitidine HCl (Zantac -) 150 mg PO BID [facility] Last Admin: 02/09/19 12:54 Dose: 150 mg Tamsulosin HCl (Flomax -) 0.4 mg PO DAILY@0830 [facility] Last Admin: 02/09/19 12:54 Dose: 0.4 mg - Objective Vital Signs: Vital Signs Temperature 99.0 F 02/09/19 13:45 Pulse Rate 83 02/09/19 13:45 Respiratory Rate 16 02/09/19 13:45 Blood Pressure 139/73 02/09/19 13:45 O2 Sat by Pulse Oximetry (%) 99 02/09/19 09:00 Constitutional: Yes: No Distress, Calm Cardiovascular: Yes: Regular Rate and Rhythm Respiratory: Yes: Regular, CTA Bilaterally Musculoskeletal: Yes: WNL Extremities: Yes: Other Neurological: Yes: Alert, Oriented Psychiatric: Yes: Alert, Oriented Labs: CBC, BMP 02/09/19 06:00 02/09/19 06:00 INR, PTT INR 1.19 (0.83-1.09) H 01/28/19 09:20 Assessment/Plan Problem List - Problems (1) Left leg pain Code(s): M79.605 - PAIN IN LEFT LEG (2) AMADOU (acute kidney injury) Code(s): N17.9 - ACUTE KIDNEY FAILURE, UNSPECIFIED (3) CKD (chronic kidney disease) Code(s): N18.9 - CHRONIC KIDNEY DISEASE, UNSPECIFIED Qualifiers: Chronic kidney disease stage: stage 2 (mild) Qualified Code(s): N18.2 - Chronic kidney disease, stage 2 (mild) (4) HTN (hypertension) Code(s): I10 - ESSENTIAL (PRIMARY) HYPERTENSION Qualifiers: Hypertension type: essential hypertension Qualified Code(s): I10 - Essential (primary) hypertension (5) IDDM (insulin dependent diabetes mellitus) Code(s): E11.9 - TYPE 2 DIABETES MELLITUS WITHOUT COMPLICATIONS; Z79.4 - [employer] (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 OF INSULIN 6 leukocytosis 7 thrush plan continue current mgmt will stop meropenam wound care monitor wound' rest as per the team
[2019-02-09] MEDS: ATORVASTATIN CA 20 MG TABLET (FP) PO SCH (21:53)
[2019-02-10] MEDS: NYSTATIN 500,000 UNITS/5 ML SUSPENSION PO SCH ×3 (05:01→17:03)
[2019-02-10] MEDS: CLOPIDOGREL BISULFATE 75 MG TABLET (FP) PO SCH (06:16)
[2019-02-10] MEDS: INSULIN SLIDING SCALE (NOVOLOG) 1 VIAL SQ SCH ×3 (06:16→17:14)
[2019-02-10] MEDS: INSULIN (LEVEMIR) 100 UNITS/ML UNITS SQ SCH (06:17)
[2019-02-10 07:15] LABS: BASO % 0.8 % (0-2.0); EOS % 3.5 % (0-4.5); HEMATOCRIT 23.5 % (35.4-49); LYMPH % 25.6 % (8-40); MCH 29.6 pg (25.7-33.7); MCHC 34.2 g/dl (32.0-35.9); MEAN CELL VOLUME 86.7 fl (80-96); MEAN PLT VOLUME 7.9 fl (7.5-11.1); MONO % 11.9 % (3.8-10.2); NEUT % 58.2 % (42.8-82.8); PLATELET COUNT 224 K/MM3 (134-434); RBC 2.71 M/mm3 (4.00-5.60); RDW 15.7 % (11.9-15.9); WHITE BLOOD COUNT 5.8 K/mm3 (4.0-10.0)
--- NOTE | 2019-02-10 07:51 | OP ---
DATE OF OPERATION: 02/05/2019 PREOPERATIVE DIAGNOSIS: Left lower leg abscess. POSTOPERATIVE DIAGNOSIS: Left lower leg abscess. PROCEDURE PERFORMED: Incision and drainage of left lower leg abscesses, complicated/multiple. SURGEON: Clement Oscar M.D. ANESTHESIA: General endotracheal. ESTIMATED BLOOD LOSS: 30 mL. FLUIDS: Crystalloid 700 mL. SPECIMEN: Culture of pus to Microbiology. DRAINS: Included [place] x3 across 4 openings in the posterior upper left calf from lateral to central, central to medial, and medial-upper to medial-lower openings, all sewn to themselves to maintain open tracts. FINDINGS: Extensive wound cavity across the upper posterior calf in the subcutaneous planes with pus, with extension superiorly into superficial and deep planes in and above the popliteal fossa, also inferiorly along the medial calf toward the additional medial cavity, all in continuity. Copious pus was evacuated and cultured, as well as bloody drainage encountered, as the patient was on aspirin and Plavix. The cavity was irrigated with saline solution via 3 counterincisions and 1 opening from removing a superficial yellow necrotic skin spot. Drains were left to connect all open areas, and the entire space packed with Betadine/saline-dampened Kerlix gauze. DISPOSITION: Stable and extubated to PACU. INDICATIONS FOR PROCEDURE: The patient is a 59-year-old male with multiple medical problems. He had been hospitalized approximately 3 weeks on the medical service after initially falling at home after a sharp pain in the back of his lower left leg at the upper portion, and initially not being able to get up. The patient said he called for an ambulance. He is not the best historian. He thought he was down approximately 10 minutes. In the ambulance, he was noticed by the garage mechanic to have his left leg appear swollen from hip to toes, more than the right side, at which point he realized and agreed that he indeed had a swollen left leg. He has had multiple imaging studies over the 3 weeks, including 3 CAT scans showing increasing changes of edema and fluid pockets in the lower left leg, mostly posteriorly in the distal thigh and lower leg, with some areas laterally and a few medially. When Surgery was asked to see him, there was also some fluid noted in the fascial planes on the CAT scan suggesting the possibility of a fasciitis. Orthopedics had see him weeks prior, shortly after admission, and saw no need for intervention but did advise elevation of the leg, which has not really been significantly elevated on a regular basis. He has been on antibiotics, including vancomycin by ID, as a culture swab taken of a weeping area on the upper back left calf in late December grew MRSA. He has continued spiking fevers and intermittently having rising white counts despite these antibiotics, and there was increasing concern for pus accumulation in the leg. All imaging had been done without IV contrast, however, given his chronic kidney disease, limiting evaluation of the leg to the findings noted above. His albumin is quite low at 1.7. His hemoglobin A1c had been 8 this admission. He has also been transfused a total of 3 units of blood since admission. He had been on meropenem and doxycycline per ID, which I believe the doxycycline had recently been changed to vancomycin. 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 He is currently on aspirin and Plavix. After initially seen by surgery and noted to have quite a swollen left leg from hip to toes, he was advised, encouraged and instructed to make sure that it stayed elevated for the most part, over his heart level for as much as possible subsequent 24 to 48 hours. It was also wrapped the day after briefly with Robert wrap for mild compression to assist with reducing the edema so that any area of potential abscess could be more easily appreciated as initially no specific area that could be opened was identified. Two days later, with edema down in the leg, it was made clear that he did have some fluctuant areas extending across the entire upper section of the posterior left calf, from 2 fluctuant-feeling areas on the medial aspect, one above the other, wrapping around the upper posterior calf to the lateral side, across and under a couple of superficial ulcerations to a pinpoint area on the lateral surface of the left upper calf, where in fact one could massage and express out some purulent drainage. At this point it became clear that operative drainage was necessary. The risks, benefits and alternatives of incision and drainage of left lower leg abscess were discussed with the patient, including but not limited to bleeding, infection, need for further procedures, and risks of delaying or not intervening were also discussed, including the progression of the infection to a bloodstream infection, sepsis, need for more extensive procedures and . The patient did agree to proceed with the operation, signed informed consent for the same, and is now brought to the OR for this procedure. OPERATIVE TECHNIQUE: The patient was brought to the operating room intubated in his bed, and rolled onto the operating table in a prone position after intubation by Anesthesia. Appropriate padding was undertaken under all areas of the body, and his arms were positioned out to the sides and angled toward his head at the elbow. The dressing off of his left calf area was removed and a pillow placed underneath both ankles, as well as a small bump placed under the left ankle to facilitate prepping and draping of the left lower leg from mid thigh to lower calf with Betadine. Once this had been accomplished, drapes were placed to expose only the intended area of operation at the posterior left calf Counts were correct at the end of the procedure. The patient was then awakened and extubated by Anesthesia, moved back to a stretcher and taken to the recovery room in stable condition, having tolerated the procedure well, again from just above the popliteal fossa to mid to lower calf. The areas of fluctuance were palpated. The opening on the lateral upper left calf, where the purulent drainage was already coming out, was enlarged with Bovie cautery until an incision approximately 1-inch long was created, large enough for entry of a suction tip. There was evacuation of put prior to this that was cultured with culture swab, and suction tip used to help suction the purulent drainage. Once the suction tip could be completely inserted into the open area, it was appreciated that there was an extensive subcutaneous plane cavity filled with copious sanguinopurulent drainage. The pus was evacuated, as well as some blood. The suction tip was noted to extend entirely across the posterior calf all the way to the initially fluctuant area on the medial side, and a counterincision made at this location with the electrocautery over the tip of the suction catheter, again for approximately 2 cm, such that both a fingertip and the suction catheter could be inserted through this site as well. Loculations were broken up on the inside of the cavity, both bluntly manually and with the suction catheter tip. The extent of the cavity was palpated out with the suction tip and noted to be fairly extensive. There were small extensions into areas laterally and superiorly. On the medial side, where the counterincision had been made, the suction tip was inserted in an inferior direction. That cavity was also noted to connect with the fluctuant area somewhat below it. Thus, an additional counterincision was opened over the lower medial fluctuant site and, again, evacuation accomplished through all of these open areas. At this point it was also felt to be useful as there was a shallow yellow necrotic skin patch in the center of the upper calf between the 2 counterincisions. Bovie cautery was used to excise this necrotic skin patch and subcutaneous tissue for a 4th opening into the cavity of purulence. All 4 of these openings were big enough to allow a fingertip, and some manual probing of the area was also done to ensure no additional extensions were reachable that would necessitate additional incisions for either packing or drainage. It was noted, however, that the suction tip could be extended superiorly toward and into the popliteal fossa, both superficially along some of the planes in the lateral aspect as well as from the medial aspect up deep into the tissues of the popliteal fossa and perhaps even above, where there was still purulent drainage being evacuated. This was accomplished several times. Then saline solution, with a bulb syringe, used to irrigate all portions of the cavity and wounds that were reachable through all 4 of the incisional openings. The suction tip again used to continue to suction these areas out. Cautery was used at the entry-exit sites where the openings were for some hemostasis at the edges. Ultimately, some pressure and time and irrigation were required before most of the bleeding stopped as the patient, again, had been on aspirin and Plavix right up until the day of the procedure. As it was unclear what tissue planes and how near potentially vessels or other vital structures in the popliteal fossa, some of these planes were the purulence was located were extending into, it was decided not to open any skin or subcutaneous tracts at or above the popliteal fossa, as this likely would be able to drain down through the holes already opened. Short lengths of small [place] drains were cut and used to loop through the counterincisions to maintain openings in all of them. Three Amanda drain lengths were actually used, one from the lateral upper calf opening to the medial one and sewn to itself with 2 silk sutures to form a ring. Another ring was created from the central to the medial opening at the upper calf, and a third from the medial-upper to medial-lower opening. It was at this point that I dampened an entire Kerlix roll of gauze with Betadine-saline solution, wrung it out and starting at one end laterally was able to begin packing all the planes reachable in the subcutaneous wound cavity with this single length of Kerlix gauze. It was run from the lateral side through to the medial side, and brought out the medial-most opening, and then used again to pack from the lateral side tightly toward the middle and then toward the medial aspect, and from the medial aspect where it had been brought out was tucked back under into the wound cavity and brought out the medial lower incision, such that 1 entire continuous Kerlix was used to pack the entire wound cavity beginning at the lateral side, extending across the upper calf and concluding with the end of the gauze sticking out of the lower medial counterincision, all underneath the skin. The plan was for this to be removed in 36 to 48 hours after operation. At this point the rest of the Betadine was cleansed off the patient's skin. Drapes were removed. Dressings of gauze, ABD pads and several rolls of Kerlix gauze were used to hold the dressing in place. The patient was then flipped from the prone back to the supine position on his bed, after which Anesthesia was able to awaken and extubate him. Counts were correct at the end of the procedure. The patient, in his bed, having been extubated, was then taken to the recovery room in stable condition, having tolerated the procedure well. Lenard Munson/[id number]
[2019-02-10 08:09] LABS: ALBUMIN 1.8 g/dl (3.4-5.0); ALK PHOS 102 U/L (45-117); ANION GAP 4 MMOL/L (8-16); BILIRUBIN,TOTAL 0.8 mg/dL (0.2-1); BLOOD UREA NITROGEN 34 mg/dL (7-18); CALCIUM 8.2 mg/dL (8.5-10.1); CHLORIDE 112 mmol/L (98-107); CO2 24 mmol/L (21-32); CREATININE 1.3 mg/dL (0.55-1.3); GLUCOSE,RANDOM 129 mg/dL (74-106); MAGNESIUM 2.2 mg/dL (1.8-2.4); PHOSPHOROUS 3.2 mg/dL (2.5-4.9); POTASSIUM 4.4 mmol/L (3.5-5.1); SGOT/AST 17 U/L (15-37); SGPT/ALT 17 U/L (13-61); SODIUM 140 mmol/L (136-145); TOT PROT 6.2 g/dl (6.4-8.2)
[2019-02-10] MEDS: TAMSULOSIN HCL 0.4 MG CAP PO SCH (08:22)
[2019-02-10] MEDS: AMINO ACIDS/PROTEIN HYDROLYS 30 ML LIQUID.PKT PO SCH ×2 (08:22→17:03)
[2019-02-10] MEDS: FERROUS SO4 325 MG TABLET (FP) PO SCH (08:22)
[2019-02-10] MEDS: RANITIDINE HCL 150 MG TABLET (FP) PO SCH (10:08)
[2019-02-10] MEDS: FOLIC ACID 1 MG TABLET (FP) PO SCH (10:08)
[2019-02-10] MEDS: HEPARIN NA (PORCINE) 5,000 UNITS/ML 1ML VIAL SQ SCH (10:08)
[2019-02-10] MEDS: ASPIRIN 81 MG CHEWABLE TABLETS PO SCH (10:08)
[2019-02-10] MEDS: LACTOBACILLUS ACIDOPHILUS 1 TABLET PO SCH (10:08)
[2019-02-10] MEDS: FINASTERIDE 5 MG TABLET (FP) PO SCH (10:08)
--- NOTE | 2019-02-10 13:17 | PN ---
Progress Note, Physician History of Present Illness: stable doing well no new issues dressing being done still oozing - Current Medication List Current Medications: Active Medications Acetaminophen (Tylenol -) 650 mg PO Q6H PRN PRN Reason: PAIN LEVEL 4-10 OR FEVER Amino Acids (Prosource No Carb Liquid Pkt) 30 ml PO BID@0800,1730 [facility] Last Admin: 02/10/19 08:22 Dose: 30 ml Aspirin (Asa -) 81 mg PO DAILY [facility] Last Admin: 02/10/19 10:08 Dose: 81 mg Atorvastatin Calcium (Lipitor -) 20 mg PO HS [facility] Last Admin: 02/09/19 21:53 Dose: 20 mg Clopidogrel Bisulfate (Plavix -) 75 mg PO AM [facility] Last Admin: 02/10/19 06:16 Dose: 75 mg Ferrous Sulfate (Feosol -) 325 mg PO DAILY@0800 [facility] Last Admin: 02/10/19 08:22 Dose: 325 mg Finasteride (Proscar -) 5 mg PO DAILY [facility] Last Admin: 02/10/19 10:08 Dose: 5 mg Folic Acid (Folic Acid -) 1 mg PO DAILY [facility] Last Admin: 02/10/19 10:08 Dose: 1 mg Heparin Sodium (Porcine) (Heparin -) 5,000 unit SQ BID [facility] Last Admin: 02/10/19 10:08 Dose: 5,000 unit IV Flush (Triple Lumen Flush) 4 ml IVPUSH PRN PRN PRN Reason: Protocol IV Flush (Triple Lumen Flush) 4 ml IVPUSH PRN PRN PRN Reason: Protocol IV Flush (Triple Lumen Flush) 4 ml IVPUSH PRN PRN PRN Reason: Protocol Vancomycin HCl 1,250 mg/ (Dextrose) 250 mls @ 250 mls/2 hr IVPB Q24H [facility]; Protocol Last Admin: 02/09/19 17:00 Dose: 250 mls/2 hr Insulin Aspart (Novolog Vial Sliding Scale -) 1 vial SQ ACHS [facility]; Protocol Last Admin: 02/10/19 11:57 Dose: 6 unit Insulin Detemir (Levemir Vial) 20 units SQ BID@0700,2200 [facility] Last Admin: 02/10/19 06:17 Dose: 20 units Lactobacillus Acidophilus (Bacid -) 1 tab PO DAILY [facility] Last Admin: 02/10/19 10:08 Dose: 1 tab Metoprolol Succinate (Toprol Xl -) 50 mg PO AM [facility] Last Admin: 02/10/19 06:16 Dose: 50 mg Nystatin (Nystatin Oral Suspension -) 500,000 units PO Q6HPO [facility] Last Admin: 02/10/19 11:57 Dose: Not Given Ondansetron HCl (Zofran Injection) 4 mg IVPUSH Q6H PRN PRN Reason: NAUSEA AND/OR VOMITING Last Admin: 02/07/19 01:46 Dose: 4 mg Oxycodone HCl (Roxicodone -) 5 mg PO Q6H PRN PRN Reason: Pain Level 7 - 10 BREAKTHROUGH Last Admin: 02/07/19 13:59 Dose: 5 mg Promethazine HCl (Phenergan Injection -) 12.5 mg IVPB Q6H PRN PRN Reason: NAUSEA AND/OR VOMITING Ranitidine HCl (Zantac -) 150 mg PO BID [facility] Last Admin: 02/10/19 10:08 Dose: 150 mg Tamsulosin HCl (Flomax -) 0.4 mg PO DAILY@0830 [facility] Last Admin: 02/10/19 08:22 Dose: 0.4 mg - Objective Vital Signs: Vital Signs Temperature 98.7 F 02/10/19 10:00 Pulse Rate 106 H 02/10/19 10:00 Respiratory Rate 18 02/10/19 10:00 Blood Pressure 111/65 02/10/19 10:00 O2 Sat by Pulse Oximetry (%) 99 02/10/19 09:00 Constitutional: Yes: No Distress, Calm, Obese Cardiovascular: Yes: Regular Rate and Rhythm Respiratory: Yes: Regular, CTA Bilaterally Gastrointestinal: Yes: Normal Bowel Sounds, Soft Musculoskeletal: Yes: WNL Extremities: Yes: Other Wound/Incision: Yes: Dressing Dry and Intact Neurological: Yes: Alert, Oriented Psychiatric: Yes: Alert, Oriented Labs: CBC, BMP 02/10/19 06:08 02/10/19 06:08 INR, PTT INR 1.19 (0.83-1.09) H 01/28/19 09:20 Assessment/Plan Problem List - Problems (1) Left leg pain Code(s): M79.605 - PAIN IN LEFT LEG (2) AMADOU (acute kidney injury) Code(s): N17.9 - ACUTE KIDNEY FAILURE, UNSPECIFIED (3) CKD (chronic kidney disease) Code(s): N18.9 - CHRONIC KIDNEY DISEASE, UNSPECIFIED Qualifiers: Chronic kidney disease stage: stage 2 (mild) Qualified Code(s): N18.2 - Chronic kidney disease, stage 2 (mild) (4) HTN (hypertension) Code(s): I10 - ESSENTIAL (PRIMARY) HYPERTENSION Qualifiers: Hypertension type: essential hypertension Qualified Code(s): I10 - Essential (primary) hypertension (5) IDDM (insulin dependent diabetes mellitus) Code(s): E11.9 - TYPE 2 DIABETES MELLITUS WITHOUT COMPLICATIONS; Z79.4 - HALF-WAY (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 OF INSULIN 6 leukocytosis 7 thrush plan continue vanco will need it for another 18 days wound care rest as per the team monitor leg closely check vanco trough before 4th dose and adjust accordingly
--- NOTE | 2019-02-10 13:27 | PN ---
Progress Note, Physician History of Present Illness: Pt seen and examined at bedside. He is awake and alert. He says he feels well. - Current Medication List Current Medications: Active Medications Acetaminophen (Tylenol -) 650 mg PO Q6H PRN PRN Reason: PAIN LEVEL 4-10 OR FEVER Amino Acids (Prosource No Carb Liquid Pkt) 30 ml PO BID@0800,1730 [facility] Last Admin: 02/10/19 08:22 Dose: 30 ml Aspirin (Asa -) 81 mg PO DAILY [facility] Last Admin: 02/10/19 10:08 Dose: 81 mg Atorvastatin Calcium (Lipitor -) 20 mg PO HS [facility] Last Admin: 02/09/19 21:53 Dose: 20 mg Clopidogrel Bisulfate (Plavix -) 75 mg PO AM [facility] Last Admin: 02/10/19 06:16 Dose: 75 mg Ferrous Sulfate (Feosol -) 325 mg PO DAILY@0800 [facility] Last Admin: 02/10/19 08:22 Dose: 325 mg Finasteride (Proscar -) 5 mg PO DAILY [facility] Last Admin: 02/10/19 10:08 Dose: 5 mg Folic Acid (Folic Acid -) 1 mg PO DAILY [facility] Last Admin: 02/10/19 10:08 Dose: 1 mg Heparin Sodium (Porcine) (Heparin -) 5,000 unit SQ BID [facility] Last Admin: 02/10/19 10:08 Dose: 5,000 unit IV Flush (Triple Lumen Flush) 4 ml IVPUSH PRN PRN PRN Reason: Protocol IV Flush (Triple Lumen Flush) 4 ml IVPUSH PRN PRN PRN Reason: Protocol IV Flush (Triple Lumen Flush) 4 ml IVPUSH PRN PRN PRN Reason: Protocol Vancomycin HCl 1,250 mg/ (Dextrose) 250 mls @ 250 mls/2 hr IVPB Q24H [facility]; Protocol Last Admin: 02/09/19 17:00 Dose: 250 mls/2 hr Insulin Aspart (Novolog Vial Sliding Scale -) 1 vial SQ ACHS [facility]; Protocol Last Admin: 02/10/19 11:57 Dose: 6 unit Insulin Detemir (Levemir Vial) 20 units SQ BID@0700,2200 [facility] Last Admin: 02/10/19 06:17 Dose: 20 units Lactobacillus Acidophilus (Bacid -) 1 tab PO DAILY [facility] Last Admin: 02/10/19 10:08 Dose: 1 tab Metoprolol Succinate (Toprol Xl -) 50 mg PO AM [facility] Last Admin: 02/10/19 06:16 Dose: 50 mg Nystatin (Nystatin Oral Suspension -) 500,000 units PO Q6HPO [facility] Last Admin: 02/10/19 11:57 Dose: Not Given Ondansetron HCl (Zofran Injection) 4 mg IVPUSH Q6H PRN PRN Reason: NAUSEA AND/OR VOMITING Last Admin: 02/07/19 01:46 Dose: 4 mg Oxycodone HCl (Roxicodone -) 5 mg PO Q6H PRN PRN Reason: Pain Level 7 - 10 BREAKTHROUGH Last Admin: 02/07/19 13:59 Dose: 5 mg Promethazine HCl (Phenergan Injection -) 12.5 mg IVPB Q6H PRN PRN Reason: NAUSEA AND/OR VOMITING Ranitidine HCl (Zantac -) 150 mg PO BID [facility] Last Admin: 02/10/19 10:08 Dose: 150 mg Tamsulosin HCl (Flomax -) 0.4 mg PO DAILY@0830 [facility] Last Admin: 02/10/19 08:22 Dose: 0.4 mg - Objective Vital Signs: Vital Signs Temperature 98.7 F 02/10/19 10:00 Pulse Rate 106 H 02/10/19 10:00 Respiratory Rate 18 02/10/19 10:00 Blood Pressure 111/65 02/10/19 10:00 O2 Sat by Pulse Oximetry (%) 99 02/10/19 09:00 Constitutional: Yes: Calm Eyes: Yes: Conjunctiva Clear HENT: Yes: Atraumatic Neck: Yes: Supple Cardiovascular: Yes: S1, S2 Respiratory: Yes: CTA Bilaterally Gastrointestinal: Yes: Soft Genitourinary: Yes: WNL Musculoskeletal: Yes: WNL Edema: RLE: 1+ Wound/Incision: Yes: Dressing Dry and Intact Neurological: Yes: Oriented Psychiatric: Yes: Oriented Labs: CBC, BMP 02/10/19 06:08 02/10/19 06:08 INR, PTT INR 1.19 (0.83-1.09) H 01/28/19 09:20 Problem List - Problems (1) AMADOU (acute kidney injury) Code(s): N17.9 - ACUTE KIDNEY FAILURE, UNSPECIFIED (2) CHF (congestive heart failure) Code(s): I50.9 - HEART FAILURE, UNSPECIFIED Qualifiers: Heart failure type: unspecified Heart failure chronicity: chronic Qualified Code(s): I50.9 - Heart failure, unspecified (3) CKD (chronic kidney disease) Code(s): N18.9 - CHRONIC KIDNEY DISEASE, UNSPECIFIED Qualifiers: Chronic kidney disease stage: stage 3 (moderate) Qualified Code(s): N18.3 - Chronic kidney disease, stage 3 (moderate) (4) HTN (hypertension) Code(s): I10 - ESSENTIAL (PRIMARY) HYPERTENSION Qualifiers: Hypertension type: essential hypertension Qualified Code(s): I10 - Essential (primary) hypertension (5) IDDM (insulin dependent diabetes mellitus) Code(s): E11.9 - TYPE 2 DIABETES MELLITUS WITHOUT COMPLICATIONS; Z79.4 - FIELD HORTICULT[employer] SPECIALTY GROWER (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 OF INSULIN (6) Left leg pain Code(s): M79.605 - PAIN IN LEFT LEG Assessment/Plan Current Medications Generic Name Dose Route Start Last Admin Trade Name Freq PRN Reason Stop Dose Admin Acetaminophen 650 mg 02/05/19 22:05 Tylenol - PO Q6H PRN PAIN LEVEL 4-10 OR FEVER Amino Acids 30 ml 02/06/19 08:00 02/10/19 08:22 Prosource No Carb Liquid Pkt PO 30 ml BID@0800,1730 LISA Administration Aspirin 81 mg 02/06/19 10:00 02/10/19 10:08 Asa - PO 81 mg DAILY LISA Administration Atorvastatin Calcium 20 mg 02/05/19 22:00 02/09/19 21:53 Lipitor - PO 20 mg HS LISA Administration Clopidogrel Bisulfate 75 mg 02/06/19 07:00 02/10/19 06:16 Plavix - PO 75 mg AM LISA Administration Ferrous Sulfate 325 mg 02/06/19 08:00 02/10/19 08:22 Feosol - PO 325 mg DAILY@0800 LISA Administration Finasteride 5 mg 02/06/19 10:00 02/10/19 10:08 Proscar - PO 5 mg DAILY LISA Administration Folic Acid 1 mg 02/06/19 10:00 02/10/19 10:08 Folic Acid - PO 1 mg DAILY LISA Administration Heparin Sodium (Porcine) 5,000 unit 02/05/19 22:00 02/10/19 10:08 Heparin - SQ 5,000 unit BID LISA Administration IV Flush 4 ml 02/05/19 21:54 Triple Lumen Flush IVPUSH PRN PRN Protocol IV Flush 4 ml 02/05/19 21:54 Triple Lumen Flush IVPUSH PRN PRN Protocol IV Flush 4 ml 02/08/19 10:58 Triple Lumen Flush IVPUSH PRN PRN Protocol Vancomycin HCl 1,250 mg/ 250 mls @ 250 mls/2 hr 02/08/19 16:00 02/09/19 17:00 Dextrose IVPB 250 mls/2 hr Q24H LISA Administration Protocol Insulin Aspart 1 vial 02/05/19 22:00 02/10/19 11:57 Novolog Vial Sliding Scale - SQ 6 unit ACHS [facility] Administration Protocol Insulin Detemir 20 units 02/09/19 22:00 02/10/19 06:17 Levemir Vial SQ 20 units BID@0700,2200 [facility] Administration Lactobacillus Acidophilus 1 tab 02/06/19 10:00 02/10/19 10:08 Bacid - PO 1 tab DAILY [facility] Administration Metoprolol Succinate 50 mg 02/06/19 07:00 02/10/19 06:16 Toprol Xl - PO 50 mg AM [facility] Administration Nystatin 500,000 units 02/06/19 00:00 02/10/19 11:57 Nystatin Oral Suspension - PO Not Given Q6HPO [facility] Ondansetron HCl 4 mg 02/05/19 21:54 02/07/19 01:46 Zofran Injection IVPUSH 4 mg Q6H PRN Administration NAUSEA AND/OR VOMITING Oxycodone HCl 5 mg 02/05/19 21:54 02/07/19 13:59 Roxicodone - PO 5 mg Q6H PRN Administration Pain Level 7 - 10 BREAKTHROUGH Promethazine HCl 12.5 mg 02/05/19 21:54 Phenergan Injection - IVPB Q6H PRN NAUSEA AND/OR VOMITING Ranitidine HCl 150 mg 02/05/19 22:00 02/10/19 10:08 Zantac - PO 150 mg BID LISA Administration Tamsulosin HCl 0.4 mg 02/06/19 08:30 02/10/19 08:22 Flomax - PO 0.4 mg DAILY@0830 [facility] Administration Impression 1. AMADOU 2. lower ext edema 3. leg pain 4. HTN 5. DM 6. CKD 7. large post void residual 8. cellulitis 9. sepsis Plan - amadou is resolving - repeat labs in am - avoid nsaids - avoid nephrotoxins - amadou likely in part from sepsis
--- NOTE | 2019-02-10 16:41 | DS ---
Physical Exam: SUBJECTIVE: Patient seen and examined; afebrile; no complaints; leg pain improving; still draining OBJECTIVE: Vital Signs Period Temp Pulse Resp BP Sys/Cano Pulse Ox Last 24 Hr 97.9 F-98.7 F 59-106 18-20 111-154/65-79 97-99 PHYSICAL EXAM GENERAL: AA obese male; laying in bed LUNGS: Breath sounds equal, clear to auscultation bilaterally, no wheezes, no crackles, no accessory muscle use. HEART: Regular rate and rhythm, S1, S2 without murmur, rub or gallop. ABDOMEN: Soft, nontender, nondistended, normoactive bowel sounds, no guarding, no rebound, no hepatosplenomegaly, no masses. EXTREMITIES: 2+ pulses, warm, well-perfused, LLE s/p I &D with 3 drains; draining serosanguinous fluids; decreased swelling and pain NEUROLOGICAL: Cranial nerves II through XII grossly intact. Normal speech, gait not observed. LABS Laboratory Results - last 24 hr 02/07/19 02/09/19 02/09/19 08:35 17:35 21:52 WBC RBC Hgb Hct MCV MCH MCHC RDW Plt Count MPV Absolute Neuts (auto) Neutrophils % Lymphocytes % Monocytes % Eosinophils % Basophils % Nucleated RBC % Sodium Potassium Chloride Carbon Dioxide Anion Gap BUN Creatinine Creat Clearance w eGFR POC Glucometer 222 155 Random Glucose Calcium Phosphorus Magnesium Total Bilirubin AST ALT Alkaline Phosphatase Total Protein Albumin Blood Type AB POSITIVE Antibody Screen Negative Crossmatch See Detail 02/10/19 02/10/19 02/10/19 06:05 06:08 06:08 WBC 5.8 RBC 2.71 L Hgb 8.0 L Hct 23.5 L MCV 86.7 MCH 29.6 MCHC 34.2 RDW 15.7 Plt Count 224 MPV 7.9 Absolute Neuts (auto) 3.4 Neutrophils % 58.2 Lymphocytes % 25.6 Monocytes % 11.9 H Eosinophils % 3.5 Basophils % 0.8 Nucleated RBC % 0 Sodium 140 Potassium 4.4 Chloride 112 H Carbon Dioxide 24 Anion Gap 4 L BUN 34 H Creatinine 1.3 Creat Clearance w eGFR 56.12 POC Glucometer 134 Random Glucose 129 H Calcium 8.2 L Phosphorus 3.2 Magnesium 2.2 Total Bilirubin 0.8 AST 17 ALT 17 Alkaline Phosphatase 102 Total Protein 6.2 L Albumin 1.8 L Blood Type Antibody Screen Crossmatch 02/10/19 11:36 WBC RBC Hgb Hct MCV MCH MCHC RDW Plt Count MPV Absolute Neuts (auto) Neutrophils % Lymphocytes % Monocytes % Eosinophils % Basophils % Nucleated RBC % Sodium Potassium Chloride Carbon Dioxide Anion Gap BUN Creatinine Creat Clearance w eGFR POC Glucometer 282 Random Glucose Calcium Phosphorus Magnesium Total Bilirubin AST ALT Alkaline Phosphatase Total Protein Albumin Blood Type Antibody Screen Crossmatch HOSPITAL COURSE: Date of Admission:01/13/19 Date of Discharge: 02/10/19 59 year old male with history of DM 2, HTN, HLD, PAD, CAD s/p PCI, CKD 3, presented with three weeks of fevers, elevated wbc, LLE swelling and pain. CT changes suggestive of developing infection in tissue planes, with identification of purulence draining from fluctuant areas ultimately requiring OR I&D. Large area of purulence evacuated from planes of upper posterior calf with extensions into deeper tissues at and above popliteal fossa, and four openings left for drainage with [place] drains to maintain tracts and packing of all reachable spaces with one continuous betadine-saline Kerlix gauze. Antibiotics per ID - on Vanco for MRSA for 3 weeks. With PICC line. Dressing changes in dispo plan. Will follow up with Dr. Oscar every two weeks. Minutes to complete discharge: 45 Discharge Summary Reason For Visit: CONGESTIVE HEART FAILURE/PAIN OF LEFT LOWER EXTREM Current Active Problems AMADOU (acute kidney injury) (Acute) Abscess of left lower leg (Acute) Anemia (Acute) CHF (congestive heart failure) (Acute) CKD (chronic kidney disease) (Acute) Cellulitis of left lower extremity (Acute) Fever (Acute) HTN (hypertension) (Acute) Infection with methicillin-resistant Staphylococcus aureus (MRSA) (Acute) Left arm cellulitis (Acute) Left leg pain (Acute) MRSA (methicillin resistant Staphylococcus aureus) carrier (Acute) Malnutrition (Acute) Pain and swelling of left lower leg (Acute) T2DM (type 2 diabetes mellitus) (Acute) Urinary retention (Acute) Condition: Improved - Instructions Diet, Activity, Other Instructions: Mr. Mendez, you have been treated for a complicated left lower leg abscess, that has been surgically drained and treated with IV antibiotics. You will need to continue the IV antibiotic treatment with vancomycin for the next three weeks. Dressing changes (see below): -continue at least twice per day and as needed dressing changes of outer dressing over the rubber (Amanda) drains to manage drainage from all open areas -outer dressings (gauze, ABD pads, Kerlix wrapping) but no actual packing of wounds necessary If you experience any worsening of symptoms including fever, chill, excessive greenish/yellow draining, pain, increasing swelling, please return to the emergency room. Postoperative instructions: You had incision and drainage of left lower leg abscess on 02/05/[address] Clement Oscar of [facility]. Activity/Wound Care: Walking is ok; you may work with physical therapy and bear weight on both legs as tolerated. You may shower with dressings off of the left leg; it is ok to get the wound areas wet and clean with soap and water, just gently slide the rubber drains back and forth, allow the areas to drain out fluid afterward, and pat the surrounding areas dry. Do not take a bath or put the leg underwater until all wounds and skin incisions have healed. The leg wounds and drains should be redressed/covered with gauze pads, absorbent pads (ABDs), and Kerlix gauze wrap to hold these in place after a shower, and at least twice daily and anytime that the dressing soaks through to the outside layer, to keep the inside as clean and dry as possible. There is no need to pack the wounds at this time. Do NOT cut or remove the drains from the wounds. Medicines: For pain, you may use Tylenol (acetaminophen) every 6 hours as needed. Do not take more than 4000 mg of acetaminophen in a day. Take medications as prescribed or indicated on the labeling. You will also need to complete your antibiotic course, most likely with an IV line, as instructed by the Infectious Disease doctor. Follow-up: The nursing facility MUST CALL the [facility] at [facility] at [phone] to make your followup appointment (usually Friday) with Dr. Oscar. The Wound Clinic is on the fifth floor of [facility], [address], left off the elevators. They MUST ARRANGE TRANSPORTATION to bring you to and from your appointments. Call Dr. Oscar's main office at [phone] if you have: * increasing pain not responsive to pain medication * fever of 101F or higher * unusual or increasing bleeding or drainage from wounds * increasing redness or swelling at wound sites Also, see your primary medical doctor within 1-2 weeks. Referrals: Tae West [Primary Care Provider] - Clement Oscar MD [Staff Physician] - Disposition: [facility] - Home Medications Comprehensive Discharge Medication List: Ambulatory Orders Aspirin [ASA -] 81 mg PO DAILY 01/13/19 Atorvastatin Ca [Lipitor] 20 mg PO HS 01/13/19 Clopidogrel Bisulfate [Plavix] 75 mg PO AM 01/13/19 Insulin (Novolog 70/30) [Novolog Mix 70/30 Vial -] 30 units SQ HS 01/13/19 Insulin (Novolog 70/30) [Novolog Mix 70/30 Vial -] 54 units SQ AM 01/13/19 Metoprolol Succinate 50 mg PO AM 01/13/19 Acetaminophen [Tylenol .Regular Strength -] 650 mg PO Q6H PRN tablet 02/10/19 Ferrous Sulfate [Feosol] 325 mg PO DAILY@0800 ud 02/10/19 Finasteride [Proscar -] 5 mg PO DAILY tablet 02/10/19 Folic Acid - 1 mg PO DAILY tablet 02/10/19 Lactobacillus Acidophilus [Bacid -] 1 tab PO DAILY tab 02/10/19 Nystatin Oral Suspension - [Nystatin Oral Susp 221810 Units/5 ML -] 500,000 units PO Q6HPO cup 02/10/19 Ranitidine [Zantac -] 150 mg PO BID tablet 02/10/19 Tamsulosin HCl [Flomax -] 0.4 mg PO DAILY@0830 cap.er.24h 02/10/19 Vancomycin HCl 1,250 mg IVPB Q24H 30 Days #30 vial 02/10/19 This patient is new to me today: Yes Date on this admission: 02/10/19 Emergency Visit: Yes ED Registration Date: 01/13/19 Care time: The patient presented to the Emergency Department on the above date and was hospitalized for further evaluation of their emergent condition. Critical Care patient: No - Discharge Referral Referred to [facility] No
[2019-02-10] MEDS ORDERED: PT OWN MED DRAWER 7, Y5N ONE (16:57)
[2019-02-10] MEDS: VANCOMYCIN HCL 1,250 MG in DEXTROSE 5%-WATER - 250 ML IVPB SCH (17:03)
--- NOTE | 2019-02-10 17:43 | PN ---
Teaching Attending Note Name of Resident: Monica Mosley ATTENDING PHYSICIAN STATEMENT I saw and evaluated the patient. I reviewed the resident's note and discussed the case with the resident. I agree with the resident's findings and plan as documented. OBJECTIVE: Last Vital Signs Temp Pulse Resp BP Pulse Ox 36.8 C 77 20 132/66 99 02/10/19 13:57 02/10/19 13:57 02/10/19 13:57 02/10/19 13:57 02/10/19 09:00 Gen: nad Pulm: ctab w/o w/r/r CV: rrr w/o m/r/g Abd: +bs, s/nt/nd Ext: LLE with drains in place CBC, BMP 02/10/19 06:08 02/10/19 06:08 Mr Mendez is a 59 year old male who came in with leg pain and was found to have cellulitis and abscess. He was started on IV antibiotics and multiple scans were performed because he had sustained fevers. He was found to have an abscess and taken to the OR and it was drained. He has improved. He is safe for discharge to SNF to finish his antibiotics course. Problem List - Problems (1) Left leg pain Code(s): M79.605 - PAIN IN LEFT LEG (2) AMADOU (acute kidney injury) Code(s): N17.9 - ACUTE KIDNEY FAILURE, UNSPECIFIED (3) CKD (chronic kidney disease) Code(s): N18.9 - CHRONIC KIDNEY DISEASE, UNSPECIFIED Qualifiers: Chronic kidney disease stage: stage 3 (moderate) Qualified Code(s): N18.3 - Chronic kidney disease, stage 3 (moderate) (4) HTN (hypertension) Code(s): I10 - ESSENTIAL (PRIMARY) HYPERTENSION Qualifiers: Hypertension type: essential hypertension Qualified Code(s): I10 - Essential (primary) hypertension (5) Fever Code(s): R50.9 - FEVER, UNSPECIFIED Qualifiers: Fever type: due to other condition Qualified Code(s): R50.81 - Fever presenting with conditions classified elsewhere (6) Cellulitis of left lower extremity Code(s): L03.116 - CELLULITIS OF LEFT LOWER LIMB (7) Anemia Code(s): D64.9 - ANEMIA, UNSPECIFIED Qualifiers: Anemia type: due to chronic kidney disease Chronic kidney disease stage: stage 3 (moderate) Qualified Code(s): N18.3 - Chronic kidney disease, stage 3 (moderate); D63.1 - Anemia in chronic kidney disease
[2019-02-10 18:50] VITALS: BP 139/74; PULSE 83; TEMP 98.3
== END 2019-02-10 21:25 | DRG 383 ==
LOC: JER 16:34 → JERBED 21:42 → J6S 01-14 15:42 → J7W 01-30 17:19
PROVIDERS: ADMIT Internal Medicine; ATTEND Internal Medicine
PROC: 05HM33Z Insertion of Infusion Device into Right Internal Jugular Vein, Percutaneous Approach (ICD-10-PCS; principal; 2019-01-21)
PROC: 0J9P00Z Drainage of Left Lower Leg Subcutaneous Tissue and Fascia with Drainage Device, Open Approach (ICD-10-PCS; 2019-02-05)
PROC: 0J9P0ZX Drainage of Left Lower Leg Subcutaneous Tissue and Fascia, Open Approach, Diagnostic (ICD-10-PCS; 2019-02-05)
PROC: 05HM33Z Insertion of Infusion Device into Right Internal Jugular Vein, Percutaneous Approach (ICD-10-PCS; 2019-02-09)
PROC: 02HV33Z Insertion of Infusion Device into Superior Vena Cava, Percutaneous Approach (ICD-10-PCS; 2019-02-09)
PROC: B518ZZA Fluoroscopy of Superior Vena Cava, Guidance (ICD-10-PCS; 2019-02-09)
PROC: B40GYZZ Plain Radiography of Left Lower Extremity Arteries using Other Contrast (ICD-10-PCS; 2019-02-09)
DX: L02.416 Cutaneous abscess of left lower limb (principal); L03.116 Cellulitis of left lower limb; I25.10 Atherosclerotic heart disease of native coronary artery without angina pectoris; E78.5 Hyperlipidemia, unspecified; I13.0 Hypertensive heart and chronic kidney disease with heart failure and stage 1 through stage 4 chronic kidney disease, or unspecified chronic kidney disease; E11.22 Type 2 diabetes mellitus with diabetic chronic kidney disease; E11.51 Type 2 diabetes mellitus with diabetic peripheral angiopathy without gangrene; E87.5 Hyperkalemia; M79.605 Pain in left leg; N17.9 Acute kidney failure, unspecified; D72.829 Elevated white blood cell count, unspecified; N18.3 Chronic kidney disease, stage 3 (moderate); L03.114 Cellulitis of left upper limb; D50.9 Iron deficiency anemia, unspecified; A41.02 Sepsis due to Methicillin resistant Staphylococcus aureus; E11.649 Type 2 diabetes mellitus with hypoglycemia without coma; R33.9 Retention of urine, unspecified; R50.9 Fever, unspecified; E11.622 Type 2 diabetes mellitus with other skin ulcer; L97.928 Non-pressure chronic ulcer of unspecified part of left lower leg with other specified severity; E66.9 Obesity, unspecified; Z89.422 Acquired absence of other left toe(s); Z95.5 Presence of coronary angioplasty implant and graft; Z79.4 Long term (current) use of insulin; Z87.891 Personal history of nicotine dependence; Z68.32 Body mass index [BMI] 32.0-32.9, adult
CPT/HCPCS: 36415; 36430; 36511; 36556; 36569; 70220-TC-FY; 71045-TC-FY; 71046-TC-FY; 72148-TC; 72192-TC; 73590-TC-LT-FY; 73700-TC-RT; 75820-TC-FY; 76098-TC-FY; 76700-TC; 76775-TC; 76856-TC; 76882-TC-RT-FY; 77001-TC-FY; 80048; 80053; 80061; 81003; 81015; 82272; 82436; 82550; 82553; 82570; 82607; 82746; 82784; 82962; 83010; 83036; 83540; 83550; 83615; 83721; 83735; 83880; 84100; 84133; 84156; 84300; 84443; 84484; 85025; 85027; 85044; 85610; 85651; 85730; 86038; 86140; 86850; 86900; 86901; 86922; 87040; 87070; 87086; 87186; 87205; 87324; 87449; 87899; 90732; 93005; 93010; 93306-TC; 93925-TC; 93971-TC; 94760; 97116-GP; 97162-GP; 99285-25; C1751; G0009; G0480; J0131; J1644; J1756; J7030; P9038; P9058

== ENCOUNTER 2019-05-22 10:08 | Inpatient (IN) | payer OTHER ==
--- NOTE | 2019-05-22 10:49 | PDOC ---
Documentation entered by Wesley Rhodes SCRIBE, acting as scribe for Lilian Rodriguez DO. Lilian Rodriguez DO: This documentation has been prepared by the Meagan mustafa Elijah, SCRIBE, under my direction and personally reviewed by me in its entirety. I confirm that the documentation accurately reflects all work, treatment, procedures, and medical decision making performed by me. Attending Attestation - Resident Resident Name: AndrewkarenDavid felder - ED Attending Attestation I have performed the following: I have examined & evaluated the patient, The case was reviewed & discussed with the resident, I agree w/resident's findings & plan - HPI HPI: 05/22/19 11:19 Patient is a 59 year old male with a significant past medical history of IDDM, HTN, HLD, PAD, and CAD s/p [place] 2014 who presents to the ED with lightheadedness and leg pain. The patient reports being outside when the onset of lightheadedness began. The patient said that he tried to pick himself up and couldnt when it made him feel as if he was going to pass out. Patient also reports cramps in his left leg which was swollen. Denies syncope, fever, chills, cough, SOB, Abdominal Pain Allergies:NKA Social History: Former Tobacco User (Quit 11/10), Lives in Senior Living Surgery: dr villalta 05/22/19 14:42 - Physicial Exam PE: 05/22/19 11:18 GENERAL: Awake, alert, and fully oriented, in no acute distress HEAD: No signs of trauma EYES: PERRLA, EOMI, sclera anicteric, conjunctiva clear ENT: +Poor Dentition. +Dry Mucosa Auricles normal inspection, hearing grossly normal, nares patent, oropharynx clear without exudates. NECK: Normal ROM, supple, no lymphadenopathy, JVD, or masses LUNGS: +Course bilateral lung sounds. Breath sounds equal, clear to auscultation bilaterally. No wheezes, and no crackles HEART: Regular rate and rhythm, normal S1 and S2, no murmurs, rubs or gallops ABDOMEN: Soft, nontender, normoactive bowel sounds. No guarding, no rebound. No masses EXTREMITIES:+Left calf warm to touch and tight. +2 by 2 cm wound to anterior calf with empirical drainage. No clubbing or cyanosis. No cords, surrounding erythema, or tenderness NEUROLOGICAL: Cranial nerves II through XII grossly intact. Normal speech, normal gait SKIN: Warm, Dry, normal turgor, no rashes or lesions noted. - Medical Decision Making 05/22/19 11:27 I, Dr. Lilian Rodriguez, DO, attest that this document has been prepared under my direction and personally reviewed by me in its entirety. I further attest, that it accurately reflects all work, treatment, procedures and medical decision -making performed by me. 05/22/19 11:27 a/p: 59yo male with L calf swelling and lightheaded sensation -no cp/sob -lightheaded/weakness currently resolved -recently had posterior calf abscess s/p I&D with dr. villalta in January -pt denies f/c -small wound to anterior tib with mild purulent drainage -states swelling has worsened -will send labs, coarse bs, will eval of pna -weakness, will send labs and hydrate -will obtain ultrasound of the leg 05/22/19 13:30 cxr clear pt to ultrasound 05/22/19 13:38 pt with amadou- ivf hydration running 05/22/19 14:[address] villalta who will see pt in consult 05/22/19 16:28 dr. villalta has seen the patient no acute sx intervention small amount of air to lateral knee on xray, no crepitus, from will admit for amadou case discussed with dr. graham will continue to hydrate and monitor knee no elevated wbc or fever pt is not septic *DC/Admit/Observation/Transfer Diagnosis at time of Disposition: AMADOU (acute kidney injury) - Discharge Dispostion Condition at time of disposition: Fair Decision to Admit order: Yes - Referrals - Patient Instructions - Post Discharge Activity Heart Score/ECG Review - ECG Intrepretation Comment:: 05/22/19 10:49 sinus at 93, nl axis, nl interval, no acute st/t wave findings
--- NOTE | 2019-05-22 11:02 | PDOC ---
History of Present Illness - General Chief Complaint: Weakness Stated Complaint: WEAKNESS/DIZZINESS Time Seen by Provider: 05/22/19 10:19 History Source: Patient Exam Limitations: No Limitations - History of Present Illness Initial Comments: 05/22/19 10:57 59M with a PMH of IDDM, HTN, HLD, PAD, CAD s/p PCI, CKD who presents after having an episode of lightheadedness. The patient states that he was in his normal state of health sitting outside, when he developed lightheadedness and he couldn't get up from his chair. He denies syncope/falls. He denies CP, SOB, fever, chills, nausea, vomiting, numbness, tingling, weakness, and abdominal pain. Past History - Past Medical History Allergies/Adverse Reactions: Allergies Allergy/AdvReac Type Severity Reaction Status Date / Time No Known Allergies Allergy Verified 05/22/19 10:41 Home Medications: Ambulatory Orders Aspirin [ASA -] 81 mg PO DAILY 01/13/19 Atorvastatin Ca [Lipitor] 20 mg PO HS 01/13/19 Clopidogrel Bisulfate [Plavix] 75 mg PO AM 01/13/19 Insulin (Novolog 70/30) [Novolog Mix 70/30 Vial -] 30 units SQ HS 01/13/19 Insulin (Novolog 70/30) [Novolog Mix 70/30 Vial -] 54 units SQ AM 01/13/19 Metoprolol Succinate 50 mg PO AM 01/13/19 Acetaminophen [Tylenol .Regular Strength -] 650 mg PO Q6H PRN tablet 02/10/19 Ferrous Sulfate [Feosol] 325 mg PO DAILY@0800 ud 02/10/19 Finasteride [Proscar -] 5 mg PO DAILY tablet 02/10/19 Folic Acid - 1 mg PO DAILY tablet 02/10/19 Lactobacillus Acidophilus [Bacid -] 1 tab PO DAILY tab 02/10/19 Nystatin Oral Suspension - [Nystatin Oral Susp 967825 Units/5 ML -] 500,000 units PO Q6HPO cup 02/10/19 Ranitidine [Zantac -] 150 mg PO BID tablet 02/10/19 Tamsulosin HCl [Flomax -] 0.4 mg PO DAILY@0830 cap.er.24h 02/10/19 Anemia: Yes Cardiac Disorders: Yes ([place] 2014) COPD: No CHF: Yes Diabetes: Yes GI Disorders: Yes (GERD) HTN: Yes Hypercholesterolemia: Yes - Immunization History Immunization Up to Date: Yes - Suicide/Smoking/Psychosocial Hx Smoking History: Current every day smoker Have you smoked in the past 12 months: Yes Number of Cigarettes Smoked Daily: 5 If you are a former smoker, when did you quit?: before last year Cigars Per Day: 0 Information on smoking cessation initiated: Yes Hx Alcohol Use: No Drug/Substance Use Hx: No Hx Substance Use Treatment: No Review of Systems - Review of Systems Able to Perform ROS?: Yes Comments:: 05/22/19 11:02 GENERAL/CONSTITUTIONAL: No fever or chills. No weakness. HEAD, EYES, EARS, NOSE AND THROAT: No change in vision. No ear pain or discharge. No sore throat. CARDIOVASCULAR: + for lightheadedness. No chest pain or palpitations. RESPIRATORY: No cough, wheezing, shortness of breath, or hemoptysis. GASTROINTESTINAL: No abdominal pain, nausea, vomiting, diarrhea, or constipation. GENITOURINARY: No dysuria, frequency, hematuria, or change in urination. MUSCULOSKELETAL: No joint or muscle swelling or pain. No neck or back pain. SKIN: No rash or lesions. NEUROLOGIC: No headache, numbness, tingling, focal weakness, loss of consciousness, or change in strength/sensation. Is the patient limited [place] proficient: No *Physical Exam - Vital Signs Last Vital Signs Temp Pulse Resp BP Pulse Ox 98.2 F 96 H 17 138/75 100 05/22/19 10:14 05/22/19 10:14 05/22/19 10:14 05/22/19 10:14 05/22/19 10:14 - Physical Exam Comments: 05/22/19 11:02 GENERAL: Well developed, well nourished. Awake and alert. No acute distress. HEENT: Normocephalic, atraumatic. Hearing grossly normal. Moist mucous membranes. PERRLA, EOMI. No conjunctival pallor. Sclera are non-icteric. NECK: Supple. Full ROM. No JVD. CARDIOVASCULAR: Regular rate and rhythm. No murmurs, rubs, or gallops. PULMONARY: No evidence of respiratory distress. Coarse lung sounds in b/l lower lung gardner. ABDOMINAL: Soft. Non-tender. Non-distended. No rebound or guarding. MUSCULOSKELETAL: Normal range of motion at all joints. No bony deformities or tenderness. EXTREMITIES: No cyanosis. No clubbing. L calf is firm and enlarged c/w R. 1+ pitting edema in b/l LE. SKIN: Warm and dry. Normal capillary refill. No rashes. No jaundice. NEUROLOGICAL: Alert, awake, appropriate. Cranial nerves 2-12 intact. Normal speech. Gait is normal without ataxia. PSYCHIATRIC: Cooperative. Good eye contact. Appropriate mood and affect. ED Treatment Course - LABORATORY CBC & Chemistry Diagram: 05/22/19 11:35 05/22/19 10:48 - RADIOLOGY Radiology Studies Ordered: Category Date Time Status CHEST X-RAY PORTABLE* [RAD] Stat Radiology 05/22/19 10:51 Ordered Medical Decision Making - Medical Decision Making 05/22/19 11:03 59M with MMP who presents with an episode of near-syncope. EKG unremarkable. Pending labs and CXR. Pt well appearing. 05/22/19 16:[address] of leg does not show acute pathology. Dr. Oscar at bedside. CMP shows AMADOU. Giving fluids and maintenance fluids. 05/22/19 16:[address] Elena by attending for AMADOU. 05/22/19 16:[address] Teague for admission. *DC/Admit/Observation/Transfer Diagnosis at time of Disposition: AMADOU (acute kidney injury) - Discharge Dispostion Condition at time of disposition: Guarded Decision to Admit order: Yes - Referrals - Patient Instructions - Post Discharge Activity
[2019-05-22 11:54] LABS: BASO % 0.9 % (0-2.0); EOS % 3.9 % (0-4.5); HEMATOCRIT 28.8 % (35.4-49); HEMOGLOBIN 9.5 GM/dL (11.7-16.9); LYMPH % 16.3 % (8-40); MCH 28.2 pg (25.7-33.7); MCHC 33.1 g/dl (32.0-35.9); MEAN CELL VOLUME 85.4 fl (80-96); MEAN PLT VOLUME 9.7 fl (7.5-11.1); MONO % 6.2 % (3.8-10.2); NEUT % 72.7 % (42.8-82.8); RBC 3.37 M/mm3 (4.00-5.60); RDW 12.9 % (11.9-15.9)
[2019-05-22 12:03] LABS: PLATELET COUNT 162 K/MM3 (134-434)
[2019-05-22 12:11] LABS: INR 0.89 (0.83-1.09); PROTHROMBIN TIME (PATIENT) 10.5 SEC (9.7-13.0)
[2019-05-22 12:23] LABS: ALBUMIN 3.4 g/dl (3.4-5.0); ALK PHOS 189 U/L (45-117); ANION GAP 6 MMOL/L (8-16); BILIRUBIN,TOTAL 0.4 mg/dL (0.2-1); BLOOD UREA NITROGEN 26.3 mg/dL (7-18); CALCIUM 9.3 mg/dL (8.5-10.1); CHLORIDE 104 mmol/L (98-107); CO2 25 mmol/L (21-32); CREATININE 2.1 mg/dL (0.55-1.3); GLUCOSE,RANDOM 256 mg/dL (74-106); MAGNESIUM 2.7 mg/dL (1.8-2.4); POTASSIUM 4.5 mmol/L (3.5-5.1); SGOT/AST 15 U/L (15-37); SGPT/ALT 15 U/L (13-61); SODIUM 135 mmol/L (136-145); TOT PROT 7.3 g/dl (6.4-8.2)
[2019-05-22] MEDS ORDERED: SODIUM CHLORIDE 0.9% 1000 ML INFUS.BAG IV ONE ×2 (12:55→14:44)
[2019-05-22] MEDS ORDERED: SODIUM CHLORIDE 1,000 ML IV SCH (15:00)
--- NOTE | 2019-05-22 16:25 | CONSULT ---
Consult Consult Specialty:: General Surgery Referred by:: Jimbo Rodriguez Reason for Consultation:: left leg swelling, ?underlying infection - History of Present Illness Chief Complaint: lightheadedness today, left leg swollen, denies pain/tenderness History of Present Illness: 59yo M with HTN, HLD, DM2 (insulin-dependent), ?CHF, CKD stage 3, h/o multiple R toe amputations, h/o MRSA abscess of left upper posterior calf few months ago requiring I&D with multiple counter-incisions, [place] drains, since healed; smokes ~5cigs/day, living in [facility], presented to ER with feeling of lightheadedness (denies dizziness/spinning), "like I was going to pass out," earlier today. He sat down in a chair, as he was outside at the time, and felt better. Denies syncope or LOC. Denies feeling like leg(s) were buckling or giving out on him. Denies pain in legs or anywhere else. Noted swelling of left lower leg just yesterday/couple days ago. Thinks the small wound on left anterior lower arizmendi has been there less than a week. Had breakfast this morning of cereal and coffee. Drinks regular coffee, not decaf. He had a cigarette just before this episode. In the ER, he is afebrile with normal wbc, BUN/Cr elevated over usual. CT is being done without IV contrast secondary to acute on chronic kidney injury. Surgery was asked to assess. He is seen and examined in ER holding, initially sitting on end of stretcher. Denies pain or tenderness. Moves well, including flexion and extension of both legs. Gives the above history. States he is taking all his usual meds, including asa/plavix, insulin, metoprolol. He is living in a [facility] pending housing approval. Walks with rolling walker. - History Source History Provided By: Patient, Medical Record Limitations to Obtaining History: Poor Historian - Past Medical History Cardio/Vascular: Yes: CAD, CHF (per patient), HTN, Hyperlipdemia Renal/: Yes: Renal Inusuff Infectious Disease: Yes: MRSA Endocrine: Yes: Diabetes Mellitus - Past Surgical History Past Surgical History: Yes: Amputation (right toes, multiple) Additional Surgical History: I&D of complicated abscess upper posterior left calf 02/05/19, had drains until Petra, sites healed - Alcohol/Substance Use Hx Alcohol Use: No History of Substance Use: reports: None - Smoking History Smoking history: Current every day smoker Have you smoked in the past 12 months: Yes Aproximately how many cigarettes per day: 5 - Social History Usual Living Arrangement: Other ([facility]) ADL: Independent 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 Home Medications - Allergies Allergies/Adverse Reactions: Allergies Allergy/AdvReac Type Severity Reaction Status Date / Time No Known Allergies Allergy Verified 05/22/19 10:41 - Home Medications Home Medications: Ambulatory Orders Aspirin [ASA -] 81 mg PO DAILY 01/13/19 Atorvastatin Ca [Lipitor] 20 mg PO HS 01/13/19 Clopidogrel Bisulfate [Plavix] 75 mg PO AM 01/13/19 Insulin (Novolog 70/30) [Novolog Mix 70/30 Vial -] 30 units SQ HS 01/13/19 Insulin (Novolog 70/30) [Novolog Mix 70/30 Vial -] 54 units SQ AM 01/13/19 Metoprolol Succinate 50 mg PO AM 01/13/19 Acetaminophen [Tylenol .Regular Strength -] 650 mg PO Q6H PRN tablet 02/10/19 Ferrous Sulfate [Feosol] 325 mg PO DAILY@0800 ud 02/10/19 Finasteride [Proscar -] 5 mg PO DAILY tablet 02/10/19 Folic Acid - 1 mg PO DAILY tablet 02/10/19 Lactobacillus Acidophilus [Bacid -] 1 tab PO DAILY tab 02/10/19 Nystatin Oral Suspension - [Nystatin Oral Susp 590012 Units/5 ML -] 500,000 units PO Q6HPO cup 02/10/19 Ranitidine [Zantac -] 150 mg PO BID tablet 02/10/19 Tamsulosin HCl [Flomax -] 0.4 mg PO DAILY@0830 cap.er.24h 02/10/19 Family Disease History - Family Disease History Family History: Unremarkable (noncontributory) Review of Systems - Review of Systems Constitutional: reports: Weakness (with hpi). denies: Chills, Fever Eyes: reports: Other (reading glasses). denies: Recent Change in Vision HENT: denies: Difficult Swallowing, Throat Pain Neck: denies: Swollen Glands, Tenderness Cardiovascular: denies: Chest Pain, Palpitations Respiratory: reports: Cough (recently, with phlegm, getting better per pt). denies: SOB Gastrointestinal: denies: Abdominal Pain, Constipation, Diarrhea, Nausea, Vomiting Genitourinary: denies: Burning, Dysuria Musculoskeletal: denies: Back Pain, Extremity Pain, Joint Pain, Muscle Pain, Muscle Weakness Integumentary: reports: Wound (left lower arizmendi - superficial healing sore). denies: Change in Color, Rash Neurological: denies: Change in LOC, Dizziness, Headache, Syncope, Unsteady Gait (pt states he ambulates well with rolling walker) Physical Exam Vital Signs: Vital Signs Temperature 98.2 F 05/22/19 10:14 Pulse Rate 96 H 05/22/19 10:14 Respiratory Rate 17 05/22/19 10:14 Blood Pressure 138/75 05/22/19 10:14 O2 Sat by Pulse Oximetry (%) 100 05/22/19 10:14 Constitutional: Yes: Well Nourished, No Distress, Calm Eyes: Yes: Conjunctiva Clear, EOM Intact HENT: Yes: Atraumatic, Normocephalic, Other (poor dentition) Neck: Yes: Supple, Trachea Midline Cardiovascular: Yes: Regular Rate and Rhythm Respiratory: Yes: Regular, CTA Bilaterally Gastrointestinal: Yes: Normal Bowel Sounds, Soft. No: Tenderness ...Rectal Exam: Yes: Deferred Renal/: No: CVA Tenderness - Left, CVA Tenderness - Right Musculoskeletal: Yes: Joint Swelling (?? - left knee slightly larger than right - whole lower leg somewhat swollen from knee down). No: Joint Stiffness, Muscle Pain Extremities: Yes: Amputation (multiple toes right foot). No: Calf Tenderness, Cool, Cyanosis, Erythema Edema: Yes Edema: LLE: 2+ (left lower leg from knee down somewhat larger than Rt) Peripheral Pulses WNL: Yes Integumentary: Yes: Other (scars x 4 left posterior calf - healed well, no tenderness, no fluctuance or erythema, some firmer healing areas still palpable ; one scab lifted off with skin underneath; left arizmendi anteriorly with one small scab removed (pink skin underneath) and one small superficial pink/red dry healing sore/ulcer - ~2x3cm, no true depth, no fluid weeping or expressible; nontender). No: Jaundice, Rash Wound/Incision: Yes: Open to air (left anterior arizmendi - see above). No: Draining Neurological: Yes: Alert, Oriented Psychiatric: Yes: Alert, Oriented Labs: CBC, BMP 05/22/19 11:35 05/22/19 10:48 CMP Sodium 135 mmol/L (136-145) L 05/22/19 10:48 Potassium 4.5 mmol/L (3.5-5.1) 05/22/19 10:48 Chloride 104 mmol/L (98-107) 05/22/19 10:48 Carbon Dioxide 25 mmol/L (21-32) 05/22/19 10:48 Anion Gap 6 MMOL/L (8-16) L 05/22/19 10:48 BUN 26.3 mg/dL (7-18) H 05/22/19 10:48 Creatinine 2.1 mg/dL (0.55-1.3) H 05/22/19 10:48 Est GFR (CKD-EPI)AfAm 38.22 05/22/19 10:48 Est GFR (CKD-EPI)NonAf 32.98 05/22/19 10:48 Random Glucose 256 mg/dL (74-106) H 05/22/19 10:48 Calcium 9.3 mg/dL (8.5-10.1) 05/22/19 10:48 Magnesium 2.7 mg/dL (1.8-2.4) H 05/22/19 10:48 Total Bilirubin 0.4 mg/dL (0.2-1) 05/22/19 10:48 AST 15 U/L (15-37) 05/22/19 10:48 ALT 15 U/L (13-61) 05/22/19 10:48 Alkaline Phosphatase 189 U/L (45-117) H 05/22/19 10:48 Creatine Kinase 141 U/L (26-308) 05/22/19 10:48 Troponin I < 0.02 ng/ml (0.00-0.05) 05/22/19 10:48 Total Protein 7.3 g/dl (6.4-8.2) 05/22/19 10:48 Albumin 3.4 g/dl (3.4-5.0) 05/22/19 10:48 INR, PTT INR 0.89 (0.83-1.09) 05/22/19 11:35 wbc normal sugar high renal dysfunction - BUN/Cr higher than baseline Imaging - Results Cat Scan: Report Reviewed, Image Reviewed (images reviewed - some edema in left calf tissues, no discrete collection or abscess; some fluid/edema and one small focus of air lateral to knee joint, above calf level, of unclear significance) Ultrasound: Report Reviewed (no DVT) Problem List - Problems (1) Lightheadedness Code(s): R42 - DIZZINESS AND GIDDINESS (2) Swelling of left lower extremity Assessment/Plan: pt denies pain and is completely nontender, including at and around left knee joint no crepitus, no erythema, no fluctuance mild to moderate edema of left lower leg would keep left leg elevated, above heart level if possible, for next 24-48 hours and limit dependency ok to ambulate to bathroom prn no indication for general surgical intervention consider orthopedic evaluation related to bubble of air lateral to knee joint? discussed with Dr. Rodriguez in ER and Dr. Elena Code(s): M79.89 - OTHER SPECIFIED SOFT TISSUE DISORDERS (3) [id number] kidney injury Assessment/Plan: dehydrated IV rehydration Code(s): N17.9 - ACUTE KIDNEY FAILURE, UNSPECIFIED; N18.9 - CHRONIC KIDNEY DISEASE, UNSPECIFIED Qualifiers: Acute renal failure type: unspecified Chronic kidney disease stage: stage 3 (moderate) Qualified Code(s): N17.9 - Acute kidney failure, unspecified; N18.3 - Chronic kidney disease, stage 3 (moderate) (4) Diabetes mellitus with stage 3 chronic kidney disease, without long-term current use of insulin Code(s): E11.22 - TYPE 2 DIABETES MELLITUS W DIABETIC CHRONIC KIDNEY DISEASE; N18.3 - CHRONIC KIDNEY DISEASE, STAGE 3 (MODERATE) Qualifiers: Diabetes mellitus type: type 2 Qualified Code(s): E11.22 - Type 2 diabetes mellitus with diabetic chronic kidney disease; N18.3 - Chronic kidney disease, stage 3 (moderate) (5) HTN (hypertension) Code(s): I10 - ESSENTIAL (PRIMARY) HYPERTENSION Qualifiers: Hypertension type: essential hypertension Qualified Code(s): I10 - Essential (primary) hypertension
--- NOTE | 2019-05-22 17:34 | HP ---
CHIEF COMPLAINT: left calf swelling PCP: HISTORY OF PRESENT ILLNESS: 59yo M with HTN, HLD, DM2 (insulin-dependent), ?CHF, CKD stage 3, h/o multiple R toe amputations, h/o MRSA abscess of left upper posterior calf few months ago requiring I&D with multiple counter-incisions, [place] drains, since healed; smokes ~5cigs/day, living in longterm, presented to hospital with concern for left left swelling and dizziness. S/p incision and drainage of left lower leg abscess 02/05. ER course was notable for: (1) left calf ct scan (2) left calf vascular study (3) Recent Travel: no PAST MEDICAL HISTORY: HTN, HLD, DM2 (insulin-dependent), ?CHF, CKD stage 3, h/o multiple R toe amputations, h/o MRSA abscess of left upper posterior calf few months ago requiring I&D with multiple counter-incisions PAST SURGICAL HISTORY: -h/o multiple R toe amputations -abscess of left upper posterior calf few months ago requiring I&D with multiple counter-incisions Social History: -lives in longterm Smoking:previous smoker, 1ppdx>40years Alcohol:occasional EtOH Drugs: denies Family History: noncontributory Allergies No Known Allergies Allergy (Verified 05/22/19 10:41) HOME MEDICATIONS: Home Medications Medication Instructions Recorded Aspirin [ASA -] 81 mg PO DAILY 01/13/19 Atorvastatin Ca [Lipitor] 20 mg PO HS 01/13/19 Clopidogrel Bisulfate [Plavix] 75 mg PO AM 01/13/19 Insulin (Novolog 70/30) [Novolog 30 units SQ HS 01/13/19 Mix 70/30 Vial -] Insulin (Novolog 70/30) [Novolog 54 units SQ AM 01/13/19 Mix 70/30 Vial -] Metoprolol Succinate 50 mg PO AM 01/13/19 Acetaminophen [Tylenol .Regular 650 mg PO Q6H PRN tablet 02/10/19 Strength -] Ferrous Sulfate [Feosol] 325 mg PO DAILY@0800 ud 02/10/19 Finasteride [Proscar -] 5 mg PO DAILY tablet 02/10/19 Folic Acid - 1 mg PO DAILY tablet 02/10/19 Lactobacillus Acidophilus [Bacid -] 1 tab PO DAILY tab 02/10/19 Nystatin Oral Suspension - 500,000 units PO Q6HPO cup 02/10/19 [Nystatin Oral Susp 466318 Units/5 ML -] Ranitidine [Zantac -] 150 mg PO BID tablet 02/10/19 Tamsulosin HCl [Flomax -] 0.4 mg PO DAILY@0830 cap.er.24h 02/10/19 REVIEW OF SYSTEMS CONSTITUTIONAL: Absent: fever, chills, diaphoresis, malaise, loss of appetite, weight change present- generalized weakness, HEENT: Absent: rhinorrhea, nasal congestion, throat pain, throat swelling, difficulty swallowing, mouth swelling, ear pain, eye pain, visual changes CARDIOVASCULAR: Absent: chest pain, syncope, palpitations, irregular heart rate, lightheadedness , peripheral edema RESPIRATORY: Absent: cough, shortness of breath, dyspnea with exertion, orthopnea, wheezing, stridor, hemoptysis GASTROINTESTINAL: Absent: abdominal pain, abdominal distension, nausea, vomiting, diarrhea, constipation, melena, hematochezia GENITOURINARY: Absent: dysuria, frequency, urgency, hesitancy, hematuria, flank pain, genital pain MUSCULOSKELETAL: Absent: myalgia, arthralgia, joint swelling, back pain, neck pain present - left calf swelling SKIN: Absent: rash, itching, pallor HEMATOLOGIC/IMMUNOLOGIC: Absent: easy bleeding, easy bruising, lymphadenopathy, frequent infections ENDOCRINE: Absent: unexplained weight gain, unexplained weight loss, heat intolerance, cold intolerance NEUROLOGIC: Absent: headache, focal weakness or paresthesias, unsteady gait, seizure, mental status changes, bladder or bowel incontinence present- dizziness, PSYCHIATRIC: Absent: anxiety, depression, suicidal or homicidal ideation, hallucinations. PHYSICAL EXAMINATION Vital Signs - 24 hr 05/22/19 05/22/19 05/22/19 10:14 13:48 17:14 Temperature 98.2 F 98.2 F Pulse Rate 96 H Pulse Rate [ 83 Right Radial] Respiratory 17 Rate Blood Pressure 138/75 Blood Pressure 124/61 [Left Arm] O2 Sat by Pulse 100 97 98 Oximetry (%) 05/22/19 17:27 Temperature Pulse Rate Pulse Rate [ 76 Right Radial] Respiratory 17 Rate Blood Pressure Blood Pressure 132/72 [Left Arm] O2 Sat by Pulse 98 Oximetry (%) GENERAL: Awake, alert, and fully oriented, in no acute distress. HEAD: Normal with no signs of trauma. EYES: Pupils equal, round and reactive to light, extraocular movements intact, sclera anicteric, conjunctiva clear. No lid lag. EARS, NOSE, THROAT: Ears normal, nares patent, oropharynx clear without exudates. Moist mucous membranes. NECK: Normal range of motion, supple without lymphadenopathy, JVD, or masses. LUNGS: Breath sounds equal, clear to auscultation bilaterally. No wheezes, and no crackles. No accessory muscle use. HEART: Regular rate and rhythm, normal S1 and S2 without murmur, rub or gallop. ABDOMEN: Soft, nontender, not distended, normoactive bowel sounds, no guarding, no rebound, no masses. MUSCULOSKELETAL: Normal range of motion at all joints. No bony deformities or tenderness. No CVA tenderness. UPPER EXTREMITIES: 2+ pulses, warm, well-perfused. No cyanosis. No clubbing. No peripheral edema. LOWER EXTREMITIES: left leg with small ulcer on anterior aspect, appears clean, right foot s/p multiple toe amputations NEUROLOGICAL: Cranial nerves II-XII intact. Normal speech. Normal gait. PSYCHIATRIC: Cooperative. Good eye contact. Appropriate mood and affect. SKIN: Warm, dry, normal turgor, no rashes or lesions noted, normal capillary refill. Laboratory Results - last 24 hr 05/22/19 05/22/19 05/22/19 10:48 11:35 11:35 WBC 5.0 RBC 3.37 L Hgb 9.5 L Hct 28.8 L D MCV 85.4 MCH 28.2 MCHC 33.1 RDW 12.9 D Plt Count 162 D MPV 9.7 D Absolute Neuts (auto) 3.6 Neutrophils % 72.7 D Lymphocytes % 16.3 D Monocytes % 6.2 Eosinophils % 3.9 Basophils % 0.9 Nucleated RBC % 0 PT with INR 10.50 INR 0.89 Sodium 135 L Potassium 4.5 Chloride 104 Carbon Dioxide 25 Anion Gap 6 L BUN 26.3 H Creatinine 2.1 H Est GFR (CKD-EPI)AfAm 38.22 Est GFR (CKD-EPI)NonAf 32.98 Random Glucose 256 H Calcium 9.3 Magnesium 2.7 H Total Bilirubin 0.4 AST 15 ALT 15 Alkaline Phosphatase 189 H Creatine Kinase 141 Troponin I < 0.02 Total Protein 7.3 Albumin 3.4 Imaging studies reviewed ASSESSMENT/PLAN: #Left calf swelling? some air bubbles seen in superior aspect - likely post op changes, evaluated by surgery already. No DVT seen on vascular study. -admit to med surg -left leg elevation -tylenol PO for pain -surgery f/u #Dizziness/lightheadedness - normal ekg, no syncope. May be orthostatic hypotension -check orthostatics #CAD -statin -ASA #HTN -metoprolol home dose #BPH? -finasteride #HLD -atorvastatin 20mg daily #DM2 (insulin-dependent) -insulin novolog 70/30 mix home dose -novolog sliding scale #CKD stage 3 -avoid neohrotoxins or excessive IV fluids -i/o -daily weight #h/o multiple R toe amputations -tight glycemic control -dvt ppx -heparin sc Visit type - Emergency Visit Emergency Visit: Yes ED Registration Date: 05/22/19 Care time: The patient presented to the Emergency Department on the above date and was hospitalized for further evaluation of their emergent condition. - New Patient This patient is new to me today: Yes Date on this admission: 05/22/19 - Critical Care Critical Care patient: No
[2019-05-22] MEDS ORDERED: SODIUM CHLORIDE 500 ML IV ONE (17:40)
[2019-05-22] MEDS ORDERED: ACETAMINOPHEN 325 MG TABLET (FP) PO PRN (17:41)
[2019-05-22] MEDS ORDERED: PT OWN MED DRAWER 7, Y5N ONE (19:01)
[2019-05-22] MEDS: ATORVASTATIN CA 20 MG TABLET (FP) PO SCH (21:53)
[2019-05-22] MEDS: HEPARIN NA (PORCINE) 5,000 UNITS/ML 1ML VIAL SQ SCH (21:53)
[2019-05-22] MEDS: RANITIDINE HCL 150 MG TABLET (FP) PO SCH (21:53)
[2019-05-22] MEDS: INSULIN (NOVOLOG MIX 70/30) 100 UNITS/ML MDV SQ SCH (21:54)
[2019-05-22] MEDS: INSULIN SLIDING SCALE (NOVOLOG) 1 VIAL SQ SCH (21:55)
[2019-05-23] MEDS: CLOPIDOGREL BISULFATE 75 MG TABLET (FP) PO SCH (06:49)
[2019-05-23] MEDS: INSULIN SLIDING SCALE (NOVOLOG) 1 VIAL SQ SCH ×4 (06:55→22:39)
[2019-05-23] MEDS ORDERED: INSULIN (NOVOLOG MIX 70/30) 100 UNITS/ML MDV SQ SCH ×2 (07:00→12:07)
[2019-05-23] MEDS: FERROUS SO4 325 MG TABLET (FP) PO SCH (08:52)
[2019-05-23] MEDS: TAMSULOSIN HCL 0.4 MG CAP PO SCH (08:52)
[2019-05-23 08:56] LABS: HEMATOCRIT 29.5 % (35.4-49); HEMOGLOBIN 9.7 GM/dL (11.7-16.9); MCH 28.2 pg (25.7-33.7); MCHC 32.7 g/dl (32.0-35.9); MEAN CELL VOLUME 86.1 fl (80-96); MEAN PLT VOLUME 9.1 fl (7.5-11.1); RBC 3.43 M/mm3 (4.00-5.60); RDW 12.6 % (11.9-15.9); WHITE BLOOD COUNT 6.4 K/mm3 (4.0-10.0)
[2019-05-23 09:19] LABS: BLOOD UREA NITROGEN 25.2 mg/dL (7-18); CALCIUM 9.2 mg/dL (8.5-10.1)
[2019-05-23 09:33] LABS: PLATELET COUNT 185 K/MM3 (134-434)
[2019-05-23] MEDS: RANITIDINE HCL 150 MG TABLET (FP) PO SCH ×2 (10:21→22:40)
[2019-05-23] MEDS: ASPIRIN 81 MG CHEWABLE TABLETS PO SCH (10:21)
[2019-05-23] MEDS: FOLIC ACID 1 MG TABLET (FP) PO SCH (10:21)
[2019-05-23] MEDS: HEPARIN NA (PORCINE) 5,000 UNITS/ML 1ML VIAL SQ SCH ×2 (10:33→22:40)
[2019-05-23] MEDS ORDERED: DEXTROSE 50%-WATER 25 GM/50 ML DISP.SYRIN ONE (11:54)
[2019-05-23] MEDS ORDERED: DEXTROSE 50%-WATER 25 GM/50 ML DISP.SYRIN IVPUSH ONE (11:58)
[2019-05-23] MEDS: FINASTERIDE 5 MG TABLET (FP) PO SCH (12:07)
--- NOTE | 2019-05-23 16:06 | PN ---
Physical Exam: SUBJECTIVE: Patient seen and examined patients leg swelling is better , he has no pain, no fever or chills his creatinine has come down to 2.0 he has no shortness of breath OBJECTIVE: Vital Signs Period Temp Pulse Resp BP Sys/Cano Pulse Ox Last 24 Hr 98.4 F-98.7 F 74-88 16-20 129-150/63-76 98-100 GENERAL: The patient is awake, alert, and fully oriented, in no acute distress. HEAD: Normal with no signs of trauma. EYES: PERRL, extraocular movements intact, sclera anicteric, conjunctiva clear. No ptosis. ENT: Ears normal, nares patent, oropharynx clear without exudates, moist mucous membranes. NECK: Trachea midline, full range of motion, supple. LUNGS: Breath sounds equal, clear to auscultation bilaterally, no wheezes, no crackles, no accessory muscle use. HEART: Regular rate and rhythm, S1, S2 without murmur, rub or gallop. ABDOMEN: Soft, nontender, nondistended, normoactive bowel sounds, no guarding, no rebound, no hepatosplenomegaly, no masses. EXTREMITIES: He has leg edema both sides but left is slightly more than right and he has ch changes NEUROLOGICAL: Cranial nerves II through XII grossly intact. Normal speech, gait not observed. Laboratory Results - last 24 hr 05/22/19 05/22/19 05/22/19 08:40 18:26 21:48 WBC RBC Hgb Hct MCV MCH MCHC RDW Plt Count MPV Sodium Potassium Chloride Carbon Dioxide Anion Gap BUN Creatinine Est GFR (CKD-EPI)AfAm Est GFR (CKD-EPI)NonAf POC Glucometer 110 188 Random Glucose Calcium Blood Type AB POSITIVE Antibody Screen Negative 05/23/19 05/23/19 05/23/19 06:53 08:40 08:40 WBC 6.4 RBC 3.43 L Hgb 9.7 L Hct 29.5 L MCV 86.1 MCH 28.2 MCHC 32.7 RDW 12.6 Plt Count 185 MPV 9.1 Sodium 142 Potassium 4.0 Chloride 111 H Carbon Dioxide 27 Anion Gap 4 L BUN 25.2 H Creatinine 2.0 H Est GFR (CKD-EPI)AfAm 40.54 Est GFR (CKD-EPI)NonAf 34.98 POC Glucometer 101 Random Glucose 51 L Calcium 9.2 Blood Type Antibody Screen 05/23/19 05/23/19 05/23/19 11:48 12:24 12:45 WBC RBC Hgb Hct MCV MCH MCHC RDW Plt Count MPV Sodium Potassium Chloride Carbon Dioxide Anion Gap BUN Creatinine Est GFR (CKD-EPI)AfAm Est GFR (CKD-EPI)NonAf POC Glucometer 19 92 Random Glucose 77 Calcium Blood Type Antibody Screen Active Medications Generic Name Dose Route Start Last Admin Trade Name Freq PRN Reason Stop Dose Admin Acetaminophen 650 mg 05/22/19 17:41 Tylenol - PO Q6H PRN PAIN LEVEL 1-5 Aspirin 81 mg 05/23/19 10:00 05/23/19 10:21 Asa - PO 81 mg DAILY LISA Administration Atorvastatin Calcium 20 mg 05/22/19 22:00 05/22/19 21:53 Lipitor - PO 20 mg HS LISA Administration Clopidogrel Bisulfate 75 mg 05/23/19 07:00 05/23/19 06:49 Plavix - PO 75 mg AM LISA Administration Ferrous Sulfate 325 mg 05/23/19 08:00 05/23/19 08:52 Feosol - PO 325 mg DAILY@0800 LISA Administration Finasteride 5 mg 05/23/19 10:00 05/23/19 12:07 Proscar - PO 5 mg DAILY LISA Administration Folic Acid 1 mg 05/23/19 10:00 05/23/19 10:21 Folic Acid - PO 1 mg DAILY LISA Administration Heparin Sodium (Porcine) 5,000 unit 05/22/19 22:00 05/23/19 10:33 Heparin - SQ 5,000 unit BID LISA Administration Insulin Aspart 30 units 05/22/19 22:00 05/22/19 21:54 Novolog Mix 70/30 Vial SQ 30 units HS LISA Administration Insulin Aspart 1 vial 05/22/19 22:00 05/23/19 12:08 Novolog Vial Sliding Scale - SQ Not Given ACHS [facility] Protocol Insulin Aspart 30 units 05/23/19 12:07 Novolog Mix 70/30 Vial SQ AM LISA Metoprolol Succinate 50 mg 05/23/19 07:00 05/23/19 06:49 Toprol Xl - PO 50 mg AM LISA Administration Ranitidine HCl 150 mg 05/22/19 22:00 05/23/19 10:21 Zantac - PO 150 mg BID LISA Administration Tamsulosin HCl 0.4 mg 05/23/19 08:30 05/23/19 08:52 Flomax - PO 0.4 mg DAILY@0830 [facility] Administration ASSESSMENT/PLAN: -Left calf swelling? some air bubbles seen in superior aspect - likely post op changes, evaluated by surgery already. No DVT seen on vascular study. -left leg elevation -tylenol PO for pain -surgery f/u appreciated by dr villalta Dizziness/lightheadedness - normal ekg, He is improved today and no symptoms CAD -statin -ASA HTN -metoprolol home dose BPH? -finasteride HLD -atorvastatin 20mg daily DM2 (insulin-dependent) -insulin novolog 70/30 mix home dose -novolog sliding scale CKD stage 3 -avoid neohrotoxins or excessive IV fluids -i/o -daily weight h/o multiple R toe amputations -tight glycemic control -dvt ppx -heparin sc Discharge planning patient has no place to go and he wants to go for rehab and placement because he cannot manage anymore Visit type - Emergency Visit Emergency Visit: Yes ED Registration Date: 05/22/19 Care time: The patient presented to the Emergency Department on the above date and was hospitalized for further evaluation of their emergent condition. - New Patient This patient is new to me today: No - Critical Care Critical Care patient: No - Discharge Referral Referred to [facility] Med P.C.: No
[2019-05-23 18:12] LABS: EPI CELLS 0.5 /HPF (0-5/HPF); HYALINE CASTS 1 /lpf (0-8); URINE APPEARANCE CLEAR; URINE BILIRUBIN NEGATIVE (NEGATIVE); URINE COLOR YELLOW; URINE GLUCOSE (UA) 2+ (NEGATIVE); URINE KETONE NEGATIVE (NEGATIVE); URINE LEUK ESTERASE NEGATIVE (NEGATIVE); URINE NITRITE NEGATIVE (NEGATIVE); URINE PROTEIN 3+ (NEGATIVE); URINE RBC 1 /hpf (0-4); URINE UROBILINOGEN 0.2 mg/dL (0.2-1.0); URINE WBC 1 /hpf (0-5)
[2019-05-23] MEDS: ATORVASTATIN CA 20 MG TABLET (FP) PO SCH (22:40)
[2019-05-23] MEDS: INSULIN (NOVOLOG MIX 70/30) 100 UNITS/ML MDV SQ SCH (22:41)
--- NOTE | 2019-05-24 00:27 | EKG ---
Test Reason : Blood Pressure : / mmHG Vent. Rate : 093 BPM Atrial Rate : 093 BPM P-R Int : 164 ms QRS Dur : 092 ms QT Int : 334 ms P-R-T Axes : 065 -14 036 degrees QTc Int : 415 ms NORMAL SINUS RHYTHM NORMAL ECG WHEN COMPARED WITH ECG OF 13-JAN-2019 17:25, NO SIGNIFICANT CHANGE WAS FOUND Confirmed by MD Garner Edward ([id number]) on 05/24/2019 12:26:52 AM Referred By: Confirmed By:Best Garner MD
[2019-05-24] MEDS ORDERED: INSULIN (NOVOLOG) ASPART 100 UNITS/ML 10ML VIAL SQ ONE (00:41)
[2019-05-24] MEDS: CLOPIDOGREL BISULFATE 75 MG TABLET (FP) PO SCH (07:44)
[2019-05-24] MEDS: INSULIN SLIDING SCALE (NOVOLOG) 1 VIAL SQ SCH ×2 (07:44→12:29)
--- NOTE | 2019-05-24 07:52 | PN ---
Progress Note, Physician History of Present Illness: 59yo M with HTN, HLD, DM2 (insulin-dependent), ?CHF, CKD stage 3, h/o multiple R toe amputations, h/o MRSA abscess of left upper posterior calf few months ago requiring I&D , since healed; smokes ~5cigs/day, living in half-way, presented to hospital with concern for left left swelling and dizziness. S/p incision and drainage of left lower leg abscess 02/05. - Current Medication List Current Medications: Active Medications Acetaminophen (Tylenol -) 650 mg PO Q6H PRN PRN Reason: PAIN LEVEL 1-5 Aspirin (Asa -) 81 mg PO DAILY [facility] Last Admin: 05/23/19 10:21 Dose: 81 mg Atorvastatin Calcium (Lipitor -) 20 mg PO [facility] Last Admin: 05/23/19 22:40 Dose: 20 mg Clopidogrel Bisulfate (Plavix -) 75 mg PO AM [facility] Last Admin: 05/24/19 07:44 Dose: 75 mg Ferrous Sulfate (Feosol -) 325 mg PO DAILY@0800 [facility] Last Admin: 05/23/19 08:52 Dose: 325 mg Finasteride (Proscar -) 5 mg PO DAILY [facility] Last Admin: 05/23/19 12:07 Dose: 5 mg Folic Acid (Folic Acid -) 1 mg PO DAILY [facility] Last Admin: 05/23/19 10:21 Dose: 1 mg Heparin Sodium (Porcine) (Heparin -) 5,000 unit SQ BID [facility] Last Admin: 05/23/19 22:40 Dose: 5,000 unit Insulin Aspart (Novolog Mix 70/30 Vial) 30 units SQ [facility] Last Admin: 05/23/19 22:41 Dose: 30 units Insulin Aspart (Novolog Vial Sliding Scale -) 1 vial SQ [facility]; Protocol Last Admin: 05/24/19 07:44 Dose: Not Given Insulin Aspart (Novolog Mix 70/30 Vial) 30 units SQ AM [facility] Last Admin: 05/24/19 07:43 Dose: Not Given Metoprolol Succinate (Toprol Xl -) 50 mg PO AM [facility] Last Admin: 05/24/19 07:44 Dose: 50 mg Ranitidine HCl (Zantac -) 150 mg PO BID [facility] Last Admin: 05/23/19 22:40 Dose: 150 mg Tamsulosin HCl (Flomax -) 0.4 mg PO DAILY@0830 [facility] Last Admin: 05/23/19 08:52 Dose: 0.4 mg - Objective Vital Signs: Vital Signs Temperature 97.6 F 05/24/19 06:40 Pulse Rate 80 05/24/19 06:40 Respiratory Rate 20 05/24/19 06:40 Blood Pressure 145/78 05/24/19 06:40 O2 Sat by Pulse Oximetry (%) 100 05/22/19 21:00 Constitutional: Yes: Well Nourished, No Distress, Calm, Poor Hygeine Eyes: Yes: WNL, Conjunctiva Clear, EOM Intact HENT: Yes: WNL, Atraumatic, Normocephalic Neck: Yes: WNL, Supple, Trachea Midline Cardiovascular: Yes: WNL, Regular Rate and Rhythm Respiratory: Yes: WNL, Regular, CTA Bilaterally Gastrointestinal: Yes: WNL, Normal Bowel Sounds, Soft Genitourinary: Yes: WNL Musculoskeletal: Yes: WNL Extremities: Yes: Amputation (right 2nd-5th toe amputation, LLE ulcer to arizmendi) Edema: Yes Edema: LLE: 1+, RLE: 1+ Peripheral Pulses WNL: Yes Integumentary: Yes: Skin Tear (to left and right LE), Other Neurological: Yes: WNL, Alert, Oriented ...Motor Strength: WNL Psychiatric: Yes: WNL Labs: CBC, BMP 05/23/19 08:40 05/23/19 12:45 INR, PTT INR 0.89 (0.83-1.09) 05/22/19 11:35 - ....Imaging Cat Scan: Report Reviewed (Report Reviewed, Image Reviewed (images reviewed - some edema in left calf tissues, no discrete collection or abscess; some fluid/ edema and one small focus of air lateral to knee joint, above calf level, of unclear significance)) Ultrasound: Report Reviewed (no DVT) Problem List - Problems (1) BPH (benign prostatic hyperplasia) Assessment/Plan: contine home dose of finasteride Code(s): N40.0 - BENIGN PROSTATIC HYPERPLASIA WITHOUT LOWER URINRY TRACT SYMP (2) Swelling of left lower extremity Assessment/Plan: swelling to LLE remains DVT negative for DVT Code(s): M79.89 - OTHER SPECIFIED SOFT TISSUE DISORDERS (3) CKD (chronic kidney disease) Assessment/Plan: Cr below baseline 1.9 Code(s): N18.9 - CHRONIC KIDNEY DISEASE, UNSPECIFIED Qualifiers: Chronic kidney disease stage: stage 3 (moderate) Qualified Code(s): N18.3 - Chronic kidney disease, stage 3 (moderate) (4) HTN (hypertension) Assessment/Plan: continue home dose of metoprolol Code(s): I10 - ESSENTIAL (PRIMARY) HYPERTENSION Qualifiers: Hypertension type: essential hypertension Qualified Code(s): I10 - Essential (primary) hypertension (5) Unspecified open wound, left lower leg, subsequent encounter Assessment/Plan: seen by Dr Oscar & no indication for general surgical intervention -consideration for orthopedic evaluation related to bubble of air lateral to knee joint, however patient does not want to be seen and will return back to hospital if swelling or pain increases Code(s): S81.802D - UNSPECIFIED OPEN WOUND, LEFT LOWER LEG, SUBSEQUENT ENCOUNTER (6) Prophylactic measure Assessment/Plan: FEN resume diabeteic diet DVT no DVT seen on US no chemical DVT proph needed Dispo patient to return back to half-way/half way house Appreciate SW assistance Code(s): Z29.9 - ENCOUNTER FOR PROPHYLACTIC MEASURES, UNSPECIFIED (7) T2DM (type 2 diabetes mellitus) Assessment/Plan: continue with Novolin 70/30 amd Novllog sliding scale Code(s): E11.9 - TYPE 2 DIABETES MELLITUS WITHOUT COMPLICATIONS Qualifiers: Diabetes mellitus jail insulin use: with terminologist use Diabetes mellitus complication status: with kidney complications Diabetes mellitus complication detail: with chronic kidney disease Chronic kidney disease stage : stage 3 (moderate) Qualified Code(s): E11.22 - Type 2 diabetes mellitus with diabetic chronic kidney disease; N18.3 - Chronic kidney disease, stage 3 ( moderate); Z79.4 - longterm (current) use of insulin Visit type - Emergency Visit Emergency Visit: Yes ED Registration Date: 05/22/19 Care time: The patient presented to the Emergency Department on the above date and was hospitalized for further evaluation of their emergent condition. - New Patient This patient is new to me today: Yes Date on this admission: 05/24/19 - Critical Care Critical Care patient: No - Discharge Referral Referred to [facility] Med P.C.: No
[2019-05-24] MEDS: TAMSULOSIN HCL 0.4 MG CAP PO SCH (08:13)
[2019-05-24] MEDS: FERROUS SO4 325 MG TABLET (FP) PO SCH (08:13)
[2019-05-24] MEDS ORDERED: PT OWN MED DRAWER 7, Y5N ONE (09:12)
[2019-05-24] MEDS: FOLIC ACID 1 MG TABLET (FP) PO SCH (09:17)
[2019-05-24] MEDS: HEPARIN NA (PORCINE) 5,000 UNITS/ML 1ML VIAL SQ SCH (09:17)
[2019-05-24] MEDS: FINASTERIDE 5 MG TABLET (FP) PO SCH (09:17)
[2019-05-24] MEDS: ASPIRIN 81 MG CHEWABLE TABLETS PO SCH (09:17)
[2019-05-24] MEDS: RANITIDINE HCL 150 MG TABLET (FP) PO SCH (09:17)
[2019-05-24 09:27] LABS: BASO % 0.4 % (0-2.0); EOS % 0.7 % (0-4.5); HEMATOCRIT 29.2 % (35.4-49); HEMOGLOBIN 9.5 GM/dL (11.7-16.9); LYMPH % 15.1 % (8-40); MCH 28.3 pg (25.7-33.7); MCHC 32.6 g/dl (32.0-35.9); MEAN CELL VOLUME 86.8 fl (80-96); MEAN PLT VOLUME 9.7 fl (7.5-11.1); MONO % 5.5 % (3.8-10.2); NEUT % 78.3 % (42.8-82.8); PLATELET COUNT 176 K/MM3 (134-434); RBC 3.37 M/mm3 (4.00-5.60); RDW 12.8 % (11.9-15.9); WHITE BLOOD COUNT 5.3 K/mm3 (4.0-10.0)
[2019-05-24 09:51] LABS: ALBUMIN 3.2 g/dl (3.4-5.0); BILIRUBIN,TOTAL 0.4 mg/dL (0.2-1); BLOOD UREA NITROGEN 24.7 mg/dL (7-18); CALCIUM 9.1 mg/dL (8.5-10.1); CREATININE 1.9 mg/dL (0.55-1.3); MAGNESIUM 2.1 mg/dL (1.8-2.4); POTASSIUM 4.4 mmol/L (3.5-5.1); TOT PROT 6.8 g/dl (6.4-8.2)
[2019-05-24 13:28] VITALS: BMI 28.2
[2019-05-24 14:33] VITALS: BP 125/68; PULSE 86; TEMP 97.4
--- NOTE | 2019-05-24 14:37 | DS ---
Physical Examination Vital Signs: Vital Signs Temperature 97.8 F 05/24/19 09:18 Pulse Rate 76 05/24/19 09:18 Respiratory Rate 18 05/24/19 09:18 Blood Pressure 110/65 05/24/19 09:18 O2 Sat by Pulse Oximetry (%) 98 05/24/19 09:00 Constitutional: Yes: Well Nourished, No Distress, Calm Eyes: Yes: WNL, Conjunctiva Clear, EOM Intact HENT: Yes: WNL, Atraumatic, Normocephalic Neck: Yes: WNL, Supple, Trachea Midline Cardiovascular: Yes: WNL, Regular Rate and Rhythm Respiratory: Yes: WNL, Regular, CTA Bilaterally Gastrointestinal: Yes: WNL, Normal Bowel Sounds, Soft ...Rectal Exam: Yes: Deferred Renal/: Yes: WNL Extremities: Yes: Amputation (right 2nd to 5th toe), Other Edema: Yes Edema: LLE: 1+, RLE: 1+ Peripheral Pulses WNL: Yes Integumentary: Yes: Other (scars x 4 left posterior calf - healed well, no tenderness, no fluctuance or erythema, some firmer healing areas still palpable ; one scab lifted off with skin underneath; left arizmendi anteriorly with one small scab removed (pink skin underneath) and one small superficial pink/red dry healing sore/ulcer - ~2x3cm, no true depth, no fluid weeping or expressible; nontender) Neurological: Yes: WNL, Alert, Oriented ...Motor Strength: WNL (uses a walker to ambulate) Psychiatric: Yes: WNL, Alert, Oriented Labs: CBC, BMP 05/24/19 08:45 05/24/19 08:45 Discharge Summary Reason For Visit: ACUTE KIDNEY INJURY Current Active Problems [id number] kidney injury (Acute) BPH (benign prostatic hyperplasia) (Acute) Lightheadedness (Acute) Prophylactic measure (Acute) Swelling of left lower extremity (Acute) Hospital Course: Problem List - Problems (1) BPH (benign prostatic hyperplasia) Assessment/Plan: contine home dose of finasteride (2) Swelling of left lower extremity Assessment/Plan: swelling to LLE remains DVT negative for DVT (3) CKD (chronic kidney disease) Assessment/Plan: Cr below baseline 1.9 follow up with PMD (4) HTN (hypertension) Assessment/Plan: continue home dose of metoprolol (5) Unspecified open wound, left lower leg, subsequent encounter Assessment/Plan: seen by Dr Oscar & no indication for general surgical intervention -consideration for orthopedic evaluation related to bubble of air lateral to knee joint, however patient does not want to be seen and will return back to hospital if swelling or pain increases (6) Prophylactic measure Assessment/Plan: FEN resume diabeteic diet DVT no DVT seen on US no chemical DVT proph needed Dispo patient to return back to assisted/half way house Appreciate SW assistance Code(s): Z29.9 - ENCOUNTER FOR PROPHYLACTIC MEASURES, UNSPECIFIED (7) T2DM (type 2 diabetes mellitus) Assessment/Plan: continue with Novolin 70/30 amd Novllog sliding scale -prescriptions trasmitted to [facility] for and novolog-patient has glucometer and other supplies - Instructions Diet, Activity, Other Instructions: Novolog Insulin Sliding Scale Check Blood sugar BEFORE all meals and BEFORE bed If BS is: <60 drink some juice and recheck in an hour 100-150 no insulin 151-200 2u of insulin 201-250 4u of insulin 251-300 6u of insulin 301-350 8u of insulin 351-400 10u of insulin >401 12 and call doctor Novolin / Give 30u before breakfast and 30u before bedtime - Home Medications Comprehensive Discharge Medication List: Ambulatory Orders Aspirin [ASA -] 81 mg PO DAILY 01/13/19 Atorvastatin Ca [Lipitor] 20 mg PO HS 01/13/19 Clopidogrel Bisulfate [Plavix] 75 mg PO AM 01/13/19 Insulin (Novolog 30) [Novolog Mix /30 Vial -] 30 units SQ HS 01/13/19 Metoprolol Succinate 50 mg PO AM 01/13/19 Acetaminophen [Tylenol .Regular Strength -] 650 mg PO Q6H PRN tablet 02/10/19 Ferrous Sulfate [Feosol] 325 mg PO DAILY@0800 ud 02/10/19 Finasteride [Proscar -] 5 mg PO DAILY tablet 02/10/19 Folic Acid - 1 mg PO DAILY tablet 02/10/19 Lactobacillus Acidophilus [Bacid -] 1 tab PO DAILY tab 02/10/19 Nystatin Oral Suspension - [Nystatin Oral Susp 881985 Units/5 ML -] 500,000 units PO Q6HPO cup 02/10/19 Ranitidine [Zantac -] 150 mg PO BID tablet 02/10/19 Tamsulosin HCl [Flomax -] 0.4 mg PO DAILY@0830 cap.er.24h 02/10/19 Insulin (Novolog 70/30) [Novolog Mix 70/30 Vial -] 30 units SQ AM #1000 units Insulin (Novolog 70/30) [Novolog Mix 70/30 Vial -] 54 units SQ AM #1000 units Insulin Sliding Scale [Novolog Vial Sliding Scale -] 1 vial SQ ACHS #100 units 05/24/19 This patient is new to me today: Yes Date on this admission: 05/24/19 Emergency Visit: Yes ED Registration Date: 05/22/19 Care time: The patient presented to the Emergency Department on the above date and was hospitalized for further evaluation of their emergent condition. Critical Care patient: No - Discharge Referral Referred to [facility] Med P.C.: No
== END 2019-05-24 15:57 | disposition home or self-care (01) | DRG 469 ==
LOC: JER 10:08 → JERBED 16:29 → J8W 18:18
PROVIDERS: ADMIT Internal Medicine; ATTEND Nurse Practitioner Acute Care
DX: N17.9 Acute kidney failure, unspecified (principal); E78.5 Hyperlipidemia, unspecified; I25.10 Atherosclerotic heart disease of native coronary artery without angina pectoris; I25.2 Old myocardial infarction; R42 Dizziness and giddiness; N40.0 Benign prostatic hyperplasia without lower urinary tract symptoms; M79.89 Other specified soft tissue disorders; I12.9 Hypertensive chronic kidney disease with stage 1 through stage 4 chronic kidney disease, or unspecified chronic kidney disease; N18.3 Chronic kidney disease, stage 3 (moderate); E11.22 Type 2 diabetes mellitus with diabetic chronic kidney disease; K21.9 Gastro-esophageal reflux disease without esophagitis; E11.51 Type 2 diabetes mellitus with diabetic peripheral angiopathy without gangrene; S81.802D Unspecified open wound, left lower leg, subsequent encounter; F17.210 Nicotine dependence, cigarettes, uncomplicated; Z79.4 Long term (current) use of insulin; Z89.421 Acquired absence of other right toe(s); Z86.14 Personal history of Methicillin resistant Staphylococcus aureus infection
CPT/HCPCS: 36415; 71045-TC-FY; 73700-TC-RT; 80048; 80053; 81003; 82550; 82947; 82962; 83735; 84484; 85025; 85027; 85610; 86850; 86900; 86901; 93005; 93010; 93970-TC; 99284-25; J1644; J7030